=== PATIENT | female | born 1975 | race Caucasian/White ===

== ENCOUNTER → 2023-07-24 11:52 | Outpatient (CLI) | payer MEDICARE, SELFPAY ==
--- NOTE | ~2023-07-24 | XR_ITS ---
Thoracic spine: Clinical Indication: Back pain AP and lateral views were performed. No fracture is seen. There is normal alignment of the vertebrae. The intervertebral disc spaces appe ar normal. Paravertebral soft tissues appear normal. Impression: No significant abnormalities noted. Reviewed, dictated and finalized at [facility]. O AND SOUND RECORDER Impression: No significant abnormalities noted.
--- NOTE | ~2023-07-24 | XR_ITS ---
Lumbosacral Spine: AP and lateral views Clinical History: Pain Findings: The normal lordotic curve is maintained. The vertebral bodies and posterior elements are i ntact. The intervertebral disc spaces are preserved. The sacroiliac joints are normally outlined. Impression: No significant abnormality. Reviewed, dictated and finalized at [facility]. 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
== END ==
PROVIDERS: PCP Emergency Medicine; Visit Provider Emergency Medicine
DX: M54.89 Other dorsalgia (principal); W19.XXXA Unspecified fall, initial encounter
CPT/HCPCS: 72072; 72100

== ENCOUNTER → 2024-05-12 13:16 | Outpatient (REF) | payer MEDICARE, MEDICAID, SELFPAY | LOC: ANHLAB 13:16 | PROVIDERS: PCP Emergency Medicine; Visit Provider Physician Assistant Surgical | DX: L82.1 Other seborrheic keratosis (principal) | CPT/HCPCS: 88305 ==

== ENCOUNTER 2024-07-09 09:54 | Outpatient (CLI) | payer MEDICARE, MEDICAID, SELFPAY ==
--- NOTE | ~2024-07-09 | MR_ITS ---
EXAMINATION: MR lumbar spine wo con DATE: 07/09/2024 10:29 INDICATION: Lumbago with sciatica, left side. TECHNIQUE: Magnetic resonance imaging (MRI) of the lumbar spine was performed without intravenous con trast. Sequences included sagittal T2-weighted FSE, sagittal T2-weighted FS FSE, sagittal T1-weighted FSE, and axial T2-weighted FSE. COMPARISON: Lumbar spine radiographs 07/24/2023 FINDINGS: There is 3 degrees dextrocurvature of lumbar spine. Vertebral body heights are normal. Ther e is mildly decreased disc height at L2-L3. The distal spinal cord signal intensity is normal. The co nus medullaris is at L1. The following disc levels are specifically discussed: L1-L2: There is a central protrusion. There is severe right and mild left facet joint osteoarthritis. There is no neural foraminal stenosis. There is mild central canal stenosis. L2-L3: The disc is bulging and has an annular fissure. There is moderate bilateral facet joint osteoa rthritis. There is mild bilateral neural foraminal stenosis. There is mild central canal stenosis. L3-L4: The disc is bulging and has an annular fissure. There is moderate bilateral facet joint osteoa rthritis. There is mild bilateral neural foraminal stenosis. There is mild central canal stenosis. L4-L5: The disc is bulging. There is moderate right and mild left facet joint osteoarthritis. There i s mild bilateral neural foraminal stenosis. There is mild central canal stenosis. L5-S1: The disc is bulging and has an annular fissure. There is severe bilateral facet joint osteoart hritis. There is mild bilateral neural foraminal stenosis. There is mild central canal stenosis. IMPRESSION: 1. Mild lumbar spondylosis. Reviewed, dictated and finalized at location A. AGENT IMPRESSION: 1. Mild lumbar spondylosis.
--- OUTSIDE RECORDS SUMMARY | 2024-07-16 12:47 | XMS_ITS | Encounter Summary ---
Author Organization [facility] Address [address] [place] [address] Phone Care Team Providers Care Seaman Name Role Phone Va Ferrell MD Unavailable Jacqui Rooney OD Unavailable Soto Vera MD Unavailable Unavailable Reason for Visit * Reason Comments Medication Refill Encounter Details Date Type Department Care Team (Late st Contact Info) Description 08/16/2021 Refill [facility] - Primary Care - [place] [address] [place] [address] Sg Richards MD [address] [place] [address] Medication Refill Social History Tobacco Use Types Packs/Day Years Used Date Smoking Tobacco: Former Cigarettes Q uit: 06/10/2018 Smokeless Tobacco: Never Alcohol Use Standard Drinks/Week Comments No 0 (1 standard drink = 0.6 oz pur e alcohol) Sexually Active Control Partners Comments Yes Male Comments No Sex and Gender Information Value Date Recorded Sex Assigned at Female 03/09/2023 8:39 AM CDT Legal Sex Female 10:23 PM CDT Gender Identity Female 03/09/2023 8:39 AM CDT Sexual Orientation Not on file documented as of this encounter Miscellaneous Notes * Telephone Encounter - Aminah Mondragon RN - 08/16/2021 4:11 PM CST Medication approved and signed per standing order protocol. 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 documented in this encounter Plan of Treatment Not on file documented as of this encounter Visit Diagnoses Not on filedocumented in this encounter Additional Health Concerns Assessment Noted Time PHQ-9 Depression Total Score: 0 12/25/19 17 1:00 PM CDT documented as of this encounter Care Teams Seaman Relationship Specialty Start Date End Date Va Ferrell MD ONE PROFESSIONAL [address] [address] Consulting Physician Obstetrics & Gynecology 06/04/16 Jacqui Rooney OD [address] [place] [address] Consulting Physician Optometry 10/15/16 03/26/23 Soto Vera MD [address] [place] [address] Consulting Physician Neurology 09/28/20 03/25/23 Will Augustine MD Consulting Physician Neurology 04/22/16 documented as of this encounter
--- OUTSIDE RECORDS SUMMARY | 2024-07-16 12:47 | XMS_ITS | Encounter Summary ---
Author Organization [facility] Address [address] [place] [address] Phone Care Team Providers Care Automobile Appraiser Name Role Phone Va Ferrell MD Unavailable Jacqui Rooney OD Unavailable Soto Vera MD Unavailable Unavailable Reason for Visit * Reason Comments Medication Refill Encounter Details Date Type Department Care Team (Late st Contact Info) Description 11/16/2021 Refill [facility] - Primary Care - [place] [address] [place] [address] Sg Richards MD [address] [place] [address] Medication Refill Social History Tobacco [...] encounter Miscellaneous Notes * Telephone Encounter - Sneha Coffey RN - 11/18/2021 8:45 AM CDT Medication approved and signed per standing order protocol. documented in this encounter Plan of Treatment Not on file documented as of this encounter Visit Diagnoses Not on filedocumented in this encounter Additional Health Concerns Assessment Noted Time PHQ-9 Depression Total Score: 0 12/25/19 17 1:00 PM CDT documented as of this encounter Care Teams Automobile Appraiser Relationship Specialty Start Date End Date Va Ferrell MD ONE PROFESSIONAL [address] [address] Consulting Physician Obstetrics & Gynecology 06/04/16 Jacqui Rooney OD [address] [place] [address] Consulting Physician Optometry 10/15/16 03/26/23 Soto Vera MD [address] [place] [address] Consulting Physician Neurology 09/28/20 03/25/23 Will Augustine MD Consulting Physician Neurology 04/22/16 documented as of this encounter
--- OUTSIDE RECORDS SUMMARY | 2024-07-16 12:47 | XMS_ITS | Encounter Summary ---
Author Organization [facility] Care Team Providers Care College Sports Coach Name Role Phone Sg Richards MD Primary Care Provider [phone] Va Ferrell MD Unavailable [phone] Jacqui Rooney OD Unavailable [phone] Soto Vera MD Unavailable Unavailable Encounter Details Date Type Department Care Team (Latest Contact Info) Description 04/25/2021 Travel Social History Tobacco Use Types Packs/Day Years [...] AM CDT Sexual Orientation Not on file COVID-19 Exposure Response Date Recorded In the last month, have you been in contact with someone who was confirmed or suspected to have Coronavirus / COVID-19? No / Unsure 04/25/2021 10:37 AM CDT documented as of this encounter Plan of Treatment Not on file documented as of this encounter Visit Diagnoses Not on filedocumented in this encounter Additional Health Concerns Infection Onset Date Last Indicated Resolved Time COVID - 19 04/25/2021 04/25/2021 05/15/2021 12:1 6 AM CDT Assessment Noted Time PHQ-9 Depression Total Score: 0 12/25/19 17 1:00 PM CDT documented as of this encounter Care Teams College Sports Coach Relationship Specialty Start Date End Date Sg Richards MD [address] [place] [address] PCP - General Internal Medicine 03/28/15 08/12/21 Va Ferrell MD ONE PROFESSIONAL [facility] [place] [address] Consulting Physician Obstetrics & Gynecology 06/04/16 Jacqui Rooney OD [address] [place] [address] Consulting Physician Optometry 10/15/16 03/26/23 Soto Vera MD [address] [place] [address] Consulting Physician Neurology 09/28/20 03/25/23 Will Augustine MD Consulting Physician Neurology 04/22/16 documented as of this encounter
--- OUTSIDE RECORDS SUMMARY | 2024-07-16 12:47 | XMS_ITS | Encounter Summary ---
Author Organization [facility] Address [address] [place] [address] Phone Care Team Providers Care Gluer Machine Operator Name Role Phone Sg Richards MD Primary Care Provider [phone] Va Ferrell MD Unavailable Jacqui Rooney OD Unavailable Soto Vera MD Unavailable Unavailable Reason for Visit * Reason Comments Cough x's 1 week Sore Throat been trying honey an d hot tea and salt water gargles, doesn't work. x's 1 week Encounter Details Date Type Department Care Team ([facility] Contact Info) Description 04/25/2021 4:20 PM CDT Office Visit [facility] - Primary Care [id number] [place] [address] Nav Bello PAC Pharyngitis, unspecified etiology (Primary Dx); Cough Discharge Disposition: Discharged to home or Selfcare Social History Tobacco Use Types Packs/Day Years [...] AM CDT documented as of this encounter Last Filed Vital Signs Vital Sign Reading Time Taken Comments Blood Pressure 114/68 04/25/2021 4:01 PM CDT Pulse 88 04/25/2021 4:01 PM CDT Temperature 36.7 ??C (98 ??F) 04/25/2021 4:01 PM CDT Respiratory Rate 16 04/25/2021 4:01 PM CDT Oxygen Saturation 98% 04/25/2021 4:01 PM CDT Inhaled Oxygen Concentration - - Weight - - Height 165.1 cm (5' 5 ) 04/25/2021 4:01 PM CDT Body Mass Index - - documented in this encounter Patient Instructions * Patient Instructions* Nav Bello, DG - 04/25/2021 4:20 PM CDT Diagnoses and all orders for this visit: Pharyngitis, unspecified etiology - POCT GROUP A STREP SCREEN RAPID - SARS-COV-2 BY MOLECULAR; Future - CULTURE, GRP A STREPTOCOCCUS, CULT ONLY; Future Cough - SARS-COV-2 BY MOLECULAR; Future Caring for a Viral Upper Respiratory Infection -- Drink plenty of Fluids --Get plenty of rest --A humidifier of vaporizer may help --Use Tylenol (acetaminophen) or Motrin (ibuprofen) as directed for fever or discomfort --Use nasal saline spray as needed for runny nose or congestion --Use salt water gargles and/or warm liquids as needed for sore throat --Warm liquids with honey often help with coughing --May use mgfv-uup-zhgkgac cough suppressant such as Delsym (dextromethorophan) as needed at bedtime --May use wbvd-ane-oikpqdp expectorant such as Mucinex (guafenisen) as needed during the day to thin secretions --May use vgvp-upi-dbglbbb decongestant such as Sudafed (pseudoephedrine) as needed --If you use a multi-symptom epfk-jfs-gfafsdy cold medicine (Tylenol Cold, NyQuil, etc.), do not take additional Tylenol (or other medincines containing acetaminophen), decongestants, etc as the multi-symptom cold medicines typically contain Tylenol and several other ingredients. --Remember to cover your cough, wash your hands freqeuntly, and avoid sharing drinks, towels, etc while you are sick to avoid spreading the illness to others. - Conservative management was discussed, see AVS Take all medications as prescribed. Please continue with a balanced lifestyle of exercise and healthy eating. If you have questions about scheduling please contact [phone]. If you have questions about a referral that was placed please call [phone]. If symptoms worsen or fail to improve please present to ED or [facility]. If any question, please call. As part of our continued efforts to provide you with excellent healthcare I would ask you to respond to survey you will receive in regards to your experience. Your input and efforts will contribute to improving our patient care experience. Thank you in advance for your participation in this important effort. Thanks for coming in today! documented in this encounter Progress Notes * Tiffanie Sharif [facility] - 04/25/2021 4:20 PM CDT Kayla Avila, 46 y.o., female is here for Cough (x's 1 week ) and Sore Throat (been trying honey and hot tea and salt water gargles, doesn't work. x's 1 week ) Medication Refills: Patient reports/denies need for medication refills. Orders Pended: no Requested Prescriptions No prescriptions requested or ordered in this encounter Home Medications Medication Sig Start Date End Date Taking? Authorizing Provider diclofenac (VOLTAREN) 75 MG Tablet Delayed Response take 1 tablet by oral route 2 times every day Patient not taking: Reported on 04/25/2021 02/14/15 Provider, MD Dany Erenumab-aooe 70 MG/ML Solution Auto-injector 70 mg by Subcutaneous route. 01/03/21 Yes Dany Navarrete MD Eslicarbazepine Acetate 800 MG Tablet Take by mouth. Patient not taking: Reported on 04/25/2021 Dany Navarrete MD gabapentin (NEURONTIN) 600 MG Tablet 4 times daily. Yes Dany Navarrete MD HYDROcodone-acetaminophen (NORCO) 5-325 MG Tablet TK 1 T PO Q 6 H PRN 08/03/19 Yes Dany Navarrete MD lamoTRIgine (LAMICTAL) 100 MG Tablet Take 350 mg by mouth 2 times daily. 06/23/16 Yes Sg Richards MD Levetiracetam 1000 MG Tablet take 2 tablet by oral route every 12 hours 06/04/16 Yes Dany Navarrete MD pantoprazole (PROTONIX) 40 MG Tablet Delayed Response TAKE 1 TABLET BY MOUTH DAILY Patient not taking: Reported on 04/25/2021 02/19/21 Sg Richards MD primidone (MYSOLINE) 50 MG Tablet Take 2 Tablets by mouth nightly. Indications: take two tablets atbedtime 09/28/20 Yes Sg Richards MD traZODone (DESYREL) 100 MG Tablet 05/26/16 Yes Dany Navarrete MD There are no discontinued medications. I have reviewed the home medication list with the patient and have reconciled discrepancies. The list is accurate to the best of my knowledge. Smoking Status: Social History Tobacco Use ??? Smoking status: Former Smoker Packs/day: 0.25 Types: Cigarettes Quit date: 06/10/2018 Years since quittin.8 ??? Smokeless tobacco: Never Used Substance Use Topics ??? Alcohol use: No Alcohol/week: 0.0 oz ??? Drug use: No Smoking Cessation Counseling Given: no Health Care Maintenance: Health Maintenance Due Topic Date Due ??? SARS-COV-2 Immunization (1) Never done ??? Pap Smear Never done ??? Discussion re Starting/Frequency of Mammograms Never done ??? Influenza Immunization (1) Never done Orders Pended: no The following BPA's have been addressed with the patient today: N/A * Nav Bello PAC - 04/25/2021 4:20 PM CDT HPI: Kayla Avila is a 46 y.o. female presents with 1 week of sore throat, cough. Pt denies fevers, chills, body aches, loss of taste or smell, SOB, CP, N/V/D. Pt reports has been using honey w/ tea, salt water gargles, hydrocodone for the pain. Pt denies known sick contacts. Pt has not gotten COVID vaccine or influenza vaccine. ROS: Review of Systems Constitutional: Negative for chills and fever. HENT: Positive for congestion and sore throat (pain rates 10/10). Negative for ear pain. Respiratory: Positive for cough. Negative for shortness of breath and wheezing. Cardiovascular: Negative for chest pain, palpitations and leg swelling. Gastrointestinal: Negative for diarrhea, nausea and vomiting. Skin: Negative for itching and rash. Neurological: Pt denies any changes in dizziness and ODEN. PE: BP 114/68 Pulse 88 Temp 98 ??F (36.7 ??C) (Temporal) Resp 16 Ht 5' 5 (1.651 m) LMP 12/07/2019 (Approximate) SpO2 98% BMI 40.60 kg/m?? Physical Exam Vitals and nursing note reviewed. Constitutional: General: She is not in acute distress. Appearance: She is well-developed. She is not diaphoretic. HENT: Head: Normocephalic and atraumatic. Right Ear: Tympanic membrane and ear canal normal. Left Ear: Tympanic membrane and ear canal normal. Nose: No rhinorrhea. Mouth/Throat: Pharynx: Posterior oropharyngeal erythema (Erythematous posterior pharynx) present. No oropharyngeal exudate. Neck: Thyroid: No thyromegaly. Cardiovascular: Rate and Rhythm: Normal rate and regular rhythm. Heart sounds: Normal heart sounds. No murmur heard. Pulmonary: Effort: Pulmonary effort is normal. No respiratory distress. Breath sounds: Normal breath sounds. No wheezing or rales. Musculoskeletal: General: Normal range of motion. Cervical back: Normal range of motion and neck supple. Right lower leg: No edema. Left lower leg: No edema. Lymphadenopathy: Cervical: No cervical adenopathy. Skin: General: Skin is warm and dry. Findings: No rash. Neurological: Mental Status: She is alert and oriented to person, place, and time. Psychiatric: Behavior: Behavior normal. Thought Content: Thought content normal. Judgment: Judgment normal. ASSESSMENT/PLAN: Patient Instructions Diagnoses and all orders for this visit: Pharyngitis, unspecified etiology - POCT GROUP A STREP SCREEN RAPID - SARS-COV-2 BY MOLECULAR; Future - CULTURE, GRP A STREPTOCOCCUS, CULT ONLY; Future Cough - SARS-COV-2 BY MOLECULAR; Future - Pt needs to quarantine until getting results back Caring for a Viral Upper Respiratory Infection -- Drink plenty of Fluids --Get plenty of rest --A humidifier of vaporizer may help --Use Tylenol (acetaminophen) or Motrin (ibuprofen) as directed for fever or discomfort --Use nasal saline spray as needed for runny nose or congestion --Use salt water gargles and/or warm liquids as needed for sore throat --Warm liquids with honey often help with coughing --May use uemq-ooa-xycywlk cough suppressant such as Delsym (dextromethorophan) as needed at bedtime --May use vsed-iuv-ogkvphp expectorant such as Mucinex (guafenisen) as needed during the day to thin secretions --May use fqgb-phg-fokdatp decongestant such as Sudafed (pseudoephedrine) as needed --If you use a multi-symptom ogke-izm-siulndx cold medicine (Tylenol Cold, NyQuil, etc.), do not take additional Tylenol (or other medincines containing acetaminophen), decongestants, etc as the multi-symptom cold medicines typically contain Tylenol and several other ingredients. --Remember to cover your cough, wash your hands freqeuntly, and avoid sharing drinks, towels, etc while you are sick to avoid spreading the illness to others. - Conservative management was discussed, see AVS Take all medications as prescribed. Please continue with a balanced lifestyle of exercise and healthy eating. If you have questions about scheduling please contact [phone]. If you have questions about a referral that was placed please call [phone]. If symptoms worsen or fail to improve please present to ED or [facility]. If any question, please call. As part of our continued efforts to provide you with excellent healthcare I would ask you to respond to survey you will receive in regards to your experience. Your input and efforts will contribute to improving our patient care experience. Thank you in advance for your participation in this important effort. Thanks for coming in today! This note was dictated using M*Modal fluency dictation system and there may be errors in electrophysiology technician. Despite proof reading the note, there may be mistakes and I apologize for those. Chief complaint and all history documented by ancillary staff were reviewed and verified, with additions or corrections, as appropriate. Nav Bello PA-C * Tiffanie Shairf CMA - 04/25/2021 4:20 PM CDT Strep culture and covid PCR swabs sent to [facility] lab * Nav Bello PAC - 04/25/2021 4:20 PM CDT Please let patient to let them know that results of strep and COVID testing are negative. documented in this encounter Plan of Treatment Not on file documented as of this encounter Procedures Procedure Name Priority Date/Time Associated Diagnosis Comments SARS-COV-2 BY MOLECULAR Routine 04/25/2021 4:41 PM CDT Pharyngitis, unspecified etiology Cough CULTURE, GRP A STREPTOCOCCUS, CULT ONLY Routine 04/25/2021 4:41 PM CDT Pharyngitis, unspecified etiology POCT GROUP A STREP SCREEN RAPID Routine 04/25/2021 4:15 PM CDT Pharyngitis, unspecified etiology documented in this encounter Results * CULTURE, GRP A STREPTOCOCCUS, CULT ONLY (04/25/2021 4:41 PM CDT) CULTURE RESULTS NO STREP PYOGENES (GROUP A BETA HEMOLYTIC STREP) ISOLATED AFTER 2 DAYS 04/28/2021 10:22 AM CDT F [facility] Culture SPECIMEN FROM THROAT / Unknown Non-Phlebotomy Collection / Unknown 04/25/2021 4:41 PM CDT 04/25/2021 4:41 PM CDT Nav Bello [facility] MICROBIOLOGY - GENERAL O RDERABLES Final Result Performing Organization Address City/[facility]/ZIP Co de Phone Number [facility] [address] [place] [address], [place] * SARS-COV-2 BY MOLECULAR (04/25/2021 4:41 PM CDT) SARSCOV2 NOT DETECTED (Referen ce Range for this test is Not Detected ) [facility] THERMOFISHER FAST DX 04/26/2021 10:32 PM CDT [facility] Comment:This test was perfor med by a RT-PCR method. Other NASAL STRUCTURE / Unknown Non-Phlebotomy Collection / Unknown 04/25/2021 4:41 PM CDT 04/25/2021 4:41 PM CDT Narrative [facility] - 04/26/2021 10:32 PM CDT Authorized Fact Sheets about this test for providers and patients are available at: https://www.fda.gov/medical-devices/gbbrjnrox-lhsmfekqxp-fjxqmpw-devices/emergen cy-us e-authorizations Nav [facility] MICROBIOLOGY - GENERAL O RDERABLES Final Result Performing Organization Address City/[facility]/ZIP Co de Phone Number [facility] [address] [place] [address], [place] * POCT GROUP A STREP SCREEN RAPID (04/25/2021 4:15 PM CDT) POC STREP SCRN Presumptive negative POC STREP SCREEN CONTROL Program/Music Director Pass 04/25/2021 4:15 PM CDT Nav Bello [facility] POINT OF CARE TESTING (M ANUAL) Final Result documented in this encounter Visit Diagnoses Diagnosis Pharyngitis, unspecified etiology- Primary Cough documented in this encounter Additional Health Concerns Infection Onset Date Last Indicated Resolved Time COVID - 19 04/25/2021 04/25/2021 05/15/2021 12:1 6 AM CDT Assessment Noted Time PHQ-9 Depression Total Score: 0 12/25/19 17 1:00 PM CDT documented as of this encounter Care Teams Gluer Machine Operator Relationship Specialty Start Date End Date Sg Richards MD [address] [place] [address] PCP - General Internal Medicine 03/28/15 08/12/21 Va Ferrell MD [place] [address] Consulting Physician Obstetrics & Gynecology 06/04/16 Jacqui Rooney OD [address] [place] [address] Consulting Physician Optometry 10/15/16 03/26/23 Soto Vera MD [address] [place] [address] Consulting Physician Neurology 09/28/20 03/25/23 Will Augustine MD Consulting Physician Neurology 04/22/16 documented as of this encounter
--- OUTSIDE RECORDS SUMMARY | 2024-07-16 12:47 | XMS_ITS | Clinical Summary ---
Author Organization [facility] Address [address] [place] [address] Phone Care Team Providers Care Transfer Iron Operator Name Role Phone Va Ferrell MD Unavailable Davi Georges Primary Care Provider [phone] Inna Fair MD Unavailable Allergies Active Allergy Reactions Criticality Noted Date Comments Erythromycin Hallucinations,Other (see Comments) Medium 01/03/2016 Neuro problems Seizure as a baby Silicone Hives Medium 07/25/2014 Adhesive Tape Hives 07/09/2015 Medications gabapentin (NEURONTIN) 600 MG Tablet Take 1,200 mg by mouth 2 times daily. Active lamoTRIgine (LAMICTAL) 100 MG Tablet Take 350 mg by mouth 2 times daily. 30 Tab 6 Active primidone (MYSOLINE) 50 MG TabletIndicatio ns:take two tablets at bedtime Take 250 mg by mouth in the morning and at bedtime. Indications: take two tablets at bedtime 120 Tablet 1 Active Rizatriptan Benzoate 5 MG Tablet Take 5 mg by mouth. Active Aimovig 140 MG/ML Solution Auto-injector 3 Active albuterol 108 (90 Base) MCG/ACT Aerosol Solution INHALE 1 PUFF BY MOUTH EVERY 4 TO 6 HOURS NEEDED FOR SHORTNESS OF BREATH 3 Active Active Problems Problem Noted Date Diagnosed Date Intractable chronic migraine without aura and without status migrainosus 03/09/2020 Arthritis 09/07/2017 DENN[place] (obstructive sleep apnea) 09/07/2017 Obesity with body mass index 30 or greater 06/04 Overview (09/28/2020): BMI 30+ - obesity Gastroesophageal reflux disease 01/09/2016 Anxiety and depression 09/24/2015 Seizure disorder Resolved Problems Problem Noted Date Diagnosed Date Resolved Date Facet arthritis of lumbosacral region L5-S1 08/22/2015 09/07/2017 Injury of jaw 07/20/2002 09/07/2017 Immunizations Immunization Administration Dates Next Due PUR TDAP 7+ YRS IM 07/09/2015 Pneumococcal Vaccine Adult - 23 Valent 8 Family History Medical History Relation Name Comments Cancer Father lung Diabetes Father Heart Attack Father High Cholesterol Father Hypertension Father Liver Disease Father Heart Attack Maternal Grandfather Seizures Maternal Grandmother Congestive Heart Failure Mother Diabetes Mother Cancer Paternal Grandfather Cancer Paternal Grandmother Arrhythmia Sister Relation Name Status Comments Father Maternal Grandfather Maternal Grandmother Mother Paternal Grandfather Paternal Grandmother Sister Social History Tobacco Use Types Packs/Day Years Used Date Smoking Tobacco: Former Cigarettes Q uit: 06/10/2018 Smokeless Tobacco: Never Tobacco Cessation:Counseling Given: Not Answered Alcohol Use Standard Drinks/Week Comments Never 0 (1 standard drink = 0.6 oz pur e alcohol) Sexually Active Control Partners Comments Yes Male Comments No Sex and Gender Information Value Date Recorded Sex Assigned at Female 03/09/2023 8:39 AM CDT Legal Sex Female 10:23 PM CDT Gender Identity Female 03/09/2023 8:39 AM CDT Sexual Orientation Not on file Last Filed Vital Signs Vital Sign Reading Time Taken Comments Blood Pressure 126/74 03/18/2023 8:56 AM CDT Pulse 75 03/18/2023 8:56 AM CDT Temperature 36.3 ??C (97.3 ??F) 03/18/2023 8:56 AM CD T Respiratory Rate 18 03/18/2023 8:56 AM CDT Oxygen Saturation 95% 03/18/2023 8:56 AM CDT Inhaled Oxygen Concentration - - Weight 94.1 kg (207 lb 8 oz) 03/18/2023 8:56 AM CDT Height 163.2 cm (5' 4.25 ) 03/18/2023 8:56 AM CD T Body Mass Index 35.34 03/18/2023 8:56 AM CDT Plan of Treatment Health Maintenance Due Date Last Done Comments Hepatitis C Virus (HCV) Screening 1975 Hepatitis B Immunization (1 of 3 - 19+ 3-dose series) 1994 Pap Smear 1996 Cervical Cancer Screening (CCS) 2005 HPV/Cotest 2005 Discussion re Starting/Frequ ency of Mammograms 2015 Colonoscopy 2020 Colorectal Cancer Screening 2020 Influenza Immunization (#1) 2024 SARS-COV-2 Immunization ( season) 2024 Td Immunization Every 10 Yea rs (Adults With 1 Tdap) 07/09/2025 07/09/2015 Respiratory Syncytial Virus (RSV) Immunization (Adult) (1 - 1-dose 75+ series) 2050 Pneumococcal Immunization Combined Aged Out 2017 No longer eligible based on patient's age to complete this topic Meningococcal Immunization (ACWY) Aged Out No longer eligible based on patient's age to complete this topic Rotavirus Immunization Aged Out No lo nger eligible based on patient's age to complete this topic Insurance MEDICARE C [employer] on file MEDICARE C [employer] Care Teams Transfer Iron Operator Relationship Specialty Start Date End Date Davi Georges [address] [place] [address] PCP - General Family Medicine 02/05/23 Va Ferrell MD [address] [place] [address] Consulting Physician Obstetrics & Gynecology 06/04/16 Inna Fair MD [address] [place] [address] Consulting Physician Oncology 02/05/23 Will Augustine MD Consulting Physician Neurology 04/22/16
--- OUTSIDE RECORDS SUMMARY | 2024-07-16 12:47 | XMS_ITS | Encounter Summary ---
Author Organization [facility] Address [address] [place] [address] Care Team Providers Care Matcher Leather Parts Name Role Phone Unavailable Primary Care Provider Unavailabl e Encounter Details Date Type Department Care Team (Latest Contact Info) Description 07/05/2015 9:27 AM TALCER - 07/05/2015 11:59 PM TALCER Hospital Encounter [facility] - Laboratory [address] [place] [address] [place] [address] [facility] [address] [place] [address] Discharge Disposition: Home or Self Care Social History Tobacco Use Types Packs/Day Years Used Date Smoking Tobacco: Never Assessed Sex and Gender Information Value Date Recorded Sex Assigned at Not on file Gender Identity Not on file Sexual Orientation Not on file documented as of this encounter Plan of Treatment Not on file documented as of this encounter Procedures Procedure Name Priority Date/Time Associated Diagnosis Comments LACOSAMIDE Routine 07/05/2015 9:43 AM TALCER Convulsions, unspecified convulsion type (HCC) LEVETIRACETAM LEVEL Routine 07/05/2015 9 :43 AM TALCER Convulsions, unspecified convulsion type (HCC) LAMOTRIGINE LEVEL Routine 07/05/2015 9:4 3 AM TALCER Convulsions, unspecified convulsion type (HCC) GABAPENTIN LEVEL Routine 07/05/2015 9:43 AM TALCER Convulsions, unspecified convulsion type (HCC) PHENOBARBITAL LEVEL Routine 07/05/2015 9 :43 AM TALCER Convulsions, unspecified convulsion type (HCC) PRIMIDONE+PHENOBARBITA L LEVEL Routine 07/05/2015 9:43 AM TALCER Convulsions, unspecified convulsion type (HCC) documented in this encounter Results * (ABNORMAL) PHENOBARBITAL LEVEL (07/05/2015 9:43 AM TALCER) Phenobarbital <2.1(L) 15.0 - 40.0 ug/mL 07/05/2015 10:25 AM TALCER [facility] Blood BLOOD SPECIMEN / Unknown Lab Venipuncture / Unknown 07/05/2015 9:43 AM TALCER 07/05/2015 9:55 AM TALCER Ezequiel Ray MD LAB - CHEMISTRY CALEB RODRIGES [facility] Organization Address City/State/[facility] Co de Phone Number [facility] [address] [phone] * (ABNORMAL) PRIMIDONE+METABOLITE (07/05/2015 9:43 AM TALCER) Primidone 1.0(L) 5.0 - 12.0 ug/mL 07/06/2015 6:17 AM TALCER [facility] ([facility]) Comment: ?Detection Limit = 0.3 ? <0.3 indicates None Detected Phenobarbital <2(L) 15 - 40 ug/mL 07/06/2015 6:17 AM TALCER [facility] ([facility]) Comment: Verified by repeat analysis ?Detection Limit = 2 ? <2 indicates None Detected Blood specimen (specimen) BLOOD SPECIMEN / Unknown Lab Venipuncture / Unknown 07/05/2015 9:43 AM TALCER 07/05/2015 9:55 AM TALCER Narrative [facility] ([facility]) - 07/06/2015 6:17 AM TALCER Performed at: ??01 - [facility] [address], [place], [place] ??[id number] Brassiere Cup Mold Cutter: Wood Sun PhD, Phone: ??[phone] Ezequiel Ray MD LAB - CHEMISTRY CALEB RODRIGES [facility] ([facility]) * (ABNORMAL) LACOSAMIDE (07/05/2015 9:43 AM TALCER) Lacosamide 12.9(H) 5.0 - 10.0 ug/mL 07/06/2015 7:11 PM TALCER [facility] ([facility]) Comment: ? Limit of Detection 0.5 ??Mean plasma concentrations following maintenance dose ?200 mg/day ??4.99 +/- 2.51 ug/mL ?400 mg/day ??9.35 +/- 4.22 ug/mL ?600 mg/day 12.46 +/- 5.60 ug/mL Results of this test are for Investigational Purposes Only. ??The performance characteristics of this assay have been determined by [facility]. ??The result should not be used as a diagnostic procedure without confirmation of the diagnosis by another medically established diagnostic product or procedure. Blood specimen (specimen) BLOOD SPECIMEN / Unknown Lab Venipuncture / Unknown 07/05/2015 9:43 AM TALCER 07/05/2015 9:55 AM TALCER Narrative [facility] ([facility]) - 07/06/2015 7:11 PM TALCER Performed at: ??01 - [facility] [address] ??[id number] Brassiere Cup Mold Cutter: Raman Jeffries MD, Phone: ??[phone] Ezequiel Ray MD LAB - CHEMISTRY ORDE RABLES Performing Organization Address [facility] de Phone Number [facility] ([facility]) * LAMOTRIGINE LEVEL (07/05/2015 9:43 AM TALCER) Pathologist [facility] Lamotrigine None Detected 2.0 - 20.0 ug/mL 07/07/2015 5:08 PM TALCER [facility] ([facility]) Comment:Detection Limit = 1. 0 Blood specimen (specimen) BLOOD SPECIMEN / Unknown Lab Venipuncture / Unknown 07/05/2015 9:43 AM TALCER 07/05/2015 9:55 AM TALCER Narrative [facility] ([facility]) - 07/07/2015 5:08 PM TALCER Performed at: ??01 - [address] ??[id number] Brassiere Cup Mold Cutter: Raman Jeffries MD, Phone: ??[phone] Ezequiel Ray MD LAB - THERAPEUTIC DR UG MONITORING ORDERABLES Performing Organization Address [facility] de Phone Number [facility] ([facility]) * LEVETIRACETAM LEVEL (07/05/2015 9:43 AM TALCER) Pathologist [facility] Levetiracetam 32.1 10.0 - 40.0 ug/mL 07/08/2015 2:35 AM TALCER [facility] ([facility]) Blood specimen (specimen) BLOOD SPECIMEN / Unknown Lab Venipuncture / Unknown 07/05/2015 9:43 AM TALCER 07/05/2015 9:55 AM TALCER Narrative [facility] ([facility]) - 07/08/2015 2:35 AM TALCER Performed at: ??01 - [facility] ??[id number] Brassiere Cup Mold Cutter: Raman Jeffries MD, Phone: ??[phone] Ezequiel Ray MD LAB - THERAPEUTIC DR OSUNA MONITORING ORDERABLES [facility] ([facility]) * GABAPENTIN LEVEL (07/05/2015 9:43 AM TALCER) Gabapentin 15.7 4.0 - 16.0 ug/mL 07/07/2015 5:08 PM TALCER [facility] ([facility]) Comment:Detection Limit = 1. 0 Blood specimen (specimen) BLOOD SPECIMEN / Unknown Lab Venipuncture / Unknown 07/05/2015 9:43 AM TALCER 07/05/2015 9:55 AM TALCER Narrative [facility] ([facility]) - 07/07/2015 5:08 PM TALCER Performed at: ??01 - [facility] [address] ??[id number] Brassiere Cup Mold Cutter: Raman Jeffries MD, Phone: ??[phone] Ezequiel Ray MD LAB - CHEMISTRY ORDCindy RODRIGES [facility] ([facility]) documented in this encounter Visit Diagnoses Diagnosis Convulsions, unspecified convulsion type (HCC)- Primary documented in this encounter
--- OUTSIDE RECORDS SUMMARY | 2024-07-16 12:47 | XMS_ITS | Encounter Summary ---
Author Organization [facility] Address [address] [facility] [place] [address] Care Team Providers Care Masonry Inspector Name Role Phone Unavailable Primary Care Provider Unavailabl e Encounter Details Date Type Department Care Team (Latest Contact Info) Description 09/25/2014 12:20 PM CDT - 09/25/2014 11:59 PM CDT Hospital Encounter [facility] - Laboratory [address] [place] [address] [place] [address] [facility] [address] [place] [address] Discharge Disposition: Home or Self [...] Priority Date/Time Associated Diagnosis Comments LACOSAMIDE Routine 09/25/2014 12:41 PM CDT Localization-related (focal) (partial) epilepsy and epileptic syndromes with complex partial seizures, with intractable epilepsy (HCC) LEVETIRACETAM LEVEL Routine 09/25/2014 1 2:41 PM CDT Localization-related (focal) (partial) epilepsy and epileptic syndromes with complex partial seizures, with intractable epilepsy (HCC) LAMOTRIGINE LEVEL Routine 09/25/2014 12: 41 PM CDT Localization-related (focal) (partial) epilepsy and epileptic syndromes with complex partial seizures, with intractable epilepsy (HCC) GABAPENTIN LEVEL Routine 09/25/2014 12:4 1 PM CDT Localization-related (focal) (partial) epilepsy and epileptic syndromes with complex partial seizures, with intractable epilepsy (HCC) documented in this encounter Results * (ABNORMAL) LACOSAMIDE (09/25/2014 12:41 PM CDT) Lacosamide 13.6(H) 5.0 - 10.0 ug/mL 09/27/2014 3:14 AM CDT [employer] ([facility]) Comment: INTERPRETIVE INFORMATION: Lacosamide, Serum or Plasma Therapeutic Range: Not well established. Suggested range 5.0 - 10.0 ug/mL Dose-related range (values at doses of 200-600 mg/day): 2.5 - 18.0 ug/mL Toxic: Not well established. Adverse effects may include dizziness, fatigue, nausea, vomiting, blurred vision and tremor. Test developed and characteristics determined by [email or web address]. See Compliance Statement B: [email or web address] Blood specimen (specimen) BLOOD SPECIMEN / Unknown Lab Venipuncture / Unknown 09/25/2014 12:41 PM CDT 09/25/2014 12:57 PM CDT Ezequiel Ray MD LAB - CHEMISTRY ALICIAE ANTELMO [facility] Organization Address City/State/ZIP Co de Phone Number [employer] ([facility]) [address] * (ABNORMAL) LAMOTRIGINE LEVEL (09/25/2014 12:41 PM CDT) Lamotrigine <0.9(L) 2.5 - 15.0 ug/mL 09/26/2014 7:00 AM CDT [employer] ([facility]) Comment: INTERPRETIVE INFORMATION: ??Lamotrigine Therapeutic Range: ??2.5-15.0 ug/mL ?Toxic: ??Not well established Pharmacokinetics varies widely, particularly with co-medications and/or compromised renal function. ??Adverse effects may include dizziness, somnolence, nausea and vomiting. Blood specimen (specimen) BLOOD SPECIMEN / Unknown Lab Venipuncture / Unknown 09/25/2014 12:41 PM CDT 09/25/2014 12:57 PM CDT Ezequiel Ray MD LAB - THERAPEUTIC DR OSUNA MONITORING ORDERABLES Performing Organization Address [facility] Phone Number [facility] [employer] ([facility]) [address] * LEVETIRACETAM LEVEL (09/25/2014 12:41 PM CDT) Levetiracetam 27 12 - 46 ug/mL 09/26/2014 7:00 AM CDT [facility] [employer] ([facility]) Comment: INTERPRETIVE INFORMATION: Keppra (Levetiracetam) Therapeutic Range: ??12-46 ug/mL ?Toxic: ??Not well Established Pharmacokinetics of levetiracetam are affected by renal function. Adverse effects may include somnolence, weakness, headache and vomiting. Blood specimen (specimen) BLOOD SPECIMEN / Unknown Lab Venipuncture / Unknown 09/25/2014 12:41 PM CDT 09/25/2014 12:57 PM CDT Ezequiel Ray MD LAB - THERAPEUTIC DR OSUNA MONITORING ORDERABLES Performing Organization Address [facility] de Phone Number [facility] ([facility]) [address] [place] [address] * GABAPENTIN LEVEL (09/25/2014 12:41 PM CDT) Gabapentin 14.4 2.0 - 20.0 ug/mL 09/28/2014 5:08 AM CDT [facility] [employer] ([facility]) Comment: INTERPRETIVE INFORMATION: ??Gabapentin Therapeutic Range: 2 - 20 ug/mL Toxic: Not well established Pharmacokinetics of gabapentin vary widely among patients, particularly those with compromised renal function. Adverse effects may include somnolence, dizziness, ataxia, and fatigue. Blood specimen (specimen) BLOOD SPECIMEN / Unknown Lab Venipuncture / Unknown 09/25/2014 12:41 PM CDT 09/25/2014 12:57 PM CDT Ezequiel U [facility] - CHEMISTRY CALEB Shah Organization Address City/State/ZIP Co de Phone Number [facility] ([facility]) [address] [place], [place] [address] documented in this encounter Visit Diagnoses Diagnosis Localization-related (focal) (partial) epilepsy and epileptic syndromes with complex partial seizures, with intractable epilepsy (HCC)- Primary Localization-related (focal) (partial) epilepsy and epileptic syndromes with complex partial seizures, with intractable epilepsy documented in this encounter
--- OUTSIDE RECORDS SUMMARY | 2024-07-16 12:47 | XMS_ITS | Encounter Summary ---
Author Organization [facility] Address [address] [facility] [place] [address] Care Team Providers Care Smelting Engineer Name Role Phone Kyle Rodríguez MD Primary Care Provider Encounter Details Date Type Department Care Team (Latest Contact Info) Description 12/16/2013 11:55 AM CDT - 12/16/2013 11:59 PM CDT Hospital Encounter [facility] - Laboratory [address] [place] [address] [place] [address] [id number] Discharge Disposition: Home or Self Care Social History Tobacco Use Types Packs/Day Years Used Date Smoking Tobacco: Never Assessed Sex and Gender Information Value Date Recorded Sex Assigned at Not on file Gender Identity Not on file Sexual Orientation Not on file documented as of this encounter Miscellaneous Notes * Miscellaneous Scans - Document, Scanned - 12/19/2013 9:27 PM CDT documented in this encounter Plan of Treatment Not on file documented as of this encounter Procedures Procedure Name Priority Date/Time Associated Diagnosis Comments ZONISAMIDE LEVEL Routine 12/16/2013 12:0 9 PM CDT 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 ??Adverse effects may include dizziness, somnolence, nausea and vomiting. Blood specimen (specimen) BLOOD SPECIMEN / Unknown Lab Venipuncture / Unknown 12/16/2013 12:09 PM CDT 12/16/2013 12:23 PM CDT Ezequiel Ray MD LAB - THERAPEUTIC DR OSUNA MONITORING ORDERABLES Performing Organization Address [facility] Co de Phone Number [employer] [address] [place] [address] * ZONISAMIDE LEVEL (12/16/2013 12:09 PM CDT) Zonisamide < 2 ug/mL 12/19/2013 2:25 PM CDT [employer] Comment: INTERPRETIVE INFORMATION: Zonisamide Therapeutic range: Not well established. Toxic: Greater than 80 ug/mL The proposed therapeutic range for seizure control is 10-40 ug/mL. Toxic concentrations may cause coma, seizures and cardiac abnormalities. Pharmacokinetics varies widely, particularly with co-medications and/or compromised renal function. 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
--- OUTSIDE RECORDS SUMMARY | 2024-07-16 12:47 | XMS_ITS | Encounter Summary ---
Author Organization [facility] Address [address] [place] [address] Phone Care Team Providers Care Protein Chemist Name Role Phone Sg Richards MD Primary Care Provider [phone] Va Ferrell MD Unavailable Jacqui Rooney Unavailable [phone] Soto Vera MD Unavailable Unavailable Reason for Visit * Reason Comments Medication Refill Encounter Details Date Type Department Care Team (Late st Contact Info) Description 05/23/2021 Refill [facility] - Primary Care - [place] [address] [place] [address] Sg Richards MD [address] [place] [address] Medication Refill Social History Tobacco [...] AM CDT documented as of this encounter Miscellaneous Notes * Telephone Encounter - Aminah Mondragon RN - 05/23/2021 2:38 PM CDT Medication approved and signed per standing order protocol. documented in this encounter Plan of Treatment Not on file documented as of this encounter Visit Diagnoses Not on filedocumented in this encounter Additional Health Concerns Assessment Noted Time PHQ-9 Depression Total Score: 0 12/25/19 17 1:00 PM CDT documented as of this encounter Care Teams Protein Chemist Relationship Specialty Start Date End Date Sg Richards MD [address] [place] [address] PCP - General Internal Medicine 03/28/15 08/12/21 Va Ferrell MD [address] [place] [address] Consulting Physician Obstetrics & Gynecology 06/04/16 Jacqui Rooney OD [address] [place] [address] Consulting Physician Optometry 10/15/16 03/26/23 Soto Vera MD [address] [place] [address] Consulting Physician Neurology 09/28/20 03/25/23 Will Augustine MD Consulting Physician Neurology 04/22/16 documented as of this encounter
--- OUTSIDE RECORDS SUMMARY | 2024-07-16 12:47 | XMS_ITS | Patient Health Summary ---
Author Organization [facility] Address [address] [place] [address] Care Team Providers Care Director Of Communications Name Role Phone Unavailable Primary Care Provider Unavailabl e Note from [facility],non-owned Affiliates and Associated Physician Practices is amultiple site organization consisting of ambulatory clinics and hospital sitesin [place], [place], [place] and [place]. This disclosure is being madepursuant to the Care Everywhere program and may not contain all information available regarding this patient. Last updated 18.[facility] Social History Tobacco Use Types Packs/Day Years Used Date Smoking Tobacco: Never Assessed Sex and Gender Information Value Date Recorded Sex Assigned at Not on file Gender Identity Not on file Sexual Orientation Not on file Procedures * PHENOBARBITAL LEVEL(Performed 07/05/2015) Performed for Convulsions, unspecified convulsion type (HCC) * PRIMIDONE+PHENOBARBITAL LEVEL(Performed 07/05/2015) Performed for Convulsions, unspecified convulsion type (HCC) * LACOSAMIDE(Performed 07/05/2015) Performed for Convulsions, unspecified convulsion type (HCC) * LAMOTRIGINE LEVEL(Performed 07/05/2015) Performed for Convulsions, unspecified convulsion type (HCC) * LEVETIRACETAM LEVEL(Performed 07/05/2015) Performed for Convulsions, unspecified convulsion type (HCC) * GABAPENTIN LEVEL(Performed 07/05/2015) Performed for Convulsions, unspecified convulsion type (HCC) * URINE DRUG SCREEN IMMUNOASSAY(Performed 01/25/2015) Performed for Other, mixed, or unspecified nondependent drug abuse, unspecified (HCC), 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), 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 complex partial seizures, with intractable epilepsy (HCC) * GABAPENTIN LEVEL(Performed 01/25/2015) Performed for Other, mixed, or unspecified nondependent drug abuse, unspecified (HCC), 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), 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 complex partial seizures, with intractable epilepsy (HCC) * LACOSAMIDE(Performed 01/25/2015) Performed for Other, mixed, or unspecified nondependent drug abuse, unspecified (HCC), 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), 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 complex partial seizures, with intractable epilepsy (HCC) * LAMOTRIGINE LEVEL(Performed 01/25/2015) Performed for Other, mixed, or unspecified nondependent drug abuse, unspecified (HCC), 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), 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 complex partial seizures, with intractable epilepsy (HCC) * LEVETIRACETAM LEVEL(Performed 01/25/2015) Performed for Other, mixed, or unspecified nondependent drug abuse, unspecified (HCC), 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), 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 complex partial seizures, with intractable epilepsy (HCC) * ERYTHROCYTE SEDIMENTATION RATE(Performed 01/25/2015) Performed for Other, mixed, or unspecified nondependent drug abuse, unspecified (HCC), 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), 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 complex partial seizures, with intractable epilepsy (HCC) * TIMOTEO BLOOD SCREEN W/REFLEX TITER(Performed 01/25/2015) Performed for Other, mixed, or unspecified nondependent drug abuse, unspecified (HCC), 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), 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 complex partial seizures, with intractable epilepsy (HCC) * RPR(Performed 01/25/2015) Performed for Other, mixed, or unspecified nondependent drug abuse, unspecified (HCC), 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), 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 complex partial seizures, with intractable epilepsy (HCC) * TSH(Performed 01/25/2015) Performed for Other, mixed, or unspecified nondependent drug abuse, unspecified (HCC), 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), 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 complex partial seizures, with intractable epilepsy (HCC) * FOLATE(Performed 01/25/2015) Performed for Other, mixed, or unspecified nondependent drug abuse, unspecified (HCC), 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), 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 complex partial seizures, with intractable epilepsy (HCC) * VITAMIN B12(Performed 01/25/2015) Performed for Other, mixed, or unspecified nondependent drug abuse, unspecified (HCC), 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), 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 complex partial seizures, with intractable epilepsy (HCC) * LACOSAMIDE(Performed 09/25/2014) Performed for Localization-related (focal) (partial) epilepsy and epileptic syndromes with complex partial seizures, with intractable epilepsy (HCC) * LAMOTRIGINE LEVEL(Performed 09/25/2014) Performed for Localization-related (focal) (partial) epilepsy and epileptic syndromes with complex partial seizures, with intractable epilepsy (HCC) * LEVETIRACETAM LEVEL(Performed 09/25/2014) Performed for Localization-related (focal) (partial) epilepsy and epileptic syndromes with complex partial seizures, with intractable epilepsy (HCC) * GABAPENTIN LEVEL(Performed 09/25/2014) Performed for Localization-related (focal) (partial) epilepsy and epileptic syndromes with complex partial seizures, with intractable epilepsy (HCC) * LEVETIRACETAM LEVEL(Performed 05/09/2014) Performed for Unspecified epilepsy without mention of intractable epilepsy (HCC) * LAMOTRIGINE LEVEL(Performed 05/09/2014) Performed for Unspecified epilepsy without mention of intractable epilepsy (HCC) * GABAPENTIN LEVEL(Performed 05/09/2014) Performed for Unspecified epilepsy without mention of intractable epilepsy (HCC) * COMPREHENSIVE METABOLIC PANEL(Performed 05/09/2014) Performed for Unspecified epilepsy without mention of intractable epilepsy (HCC) * CBC W AUTO DIFFERENTIAL(Performed 05/09/2014) Performed for Unspecified epilepsy without mention of intractable epilepsy (HCC) * LACOSAMIDE(Performed 05/09/2014) Performed for Unspecified epilepsy without mention of intractable epilepsy (HCC) * LACOSAMIDE(Performed 01/19/2014) Performed for 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) * GABAPENTIN LEVEL(Performed 01/19/2014) Performed for 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) * LEVETIRACETAM LEVEL(Performed 01/19/2014) Performed for 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) * ERYTHROCYTE SEDIMENTATION RATE(Performed 01/19/2014) Performed for 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) * COMPREHENSIVE METABOLIC PANEL(Performed 01/19/2014) Performed for 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) * CBC W AUTO DIFFERENTIAL(Performed 01/19/2014) Performed for 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) * LAMOTRIGINE LEVEL(Performed 12/16/2013) Performed for 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) * ZONISAMIDE LEVEL(Performed 12/16/2013) Performed for 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) Results * (ABNORMAL) LACOSAMIDE (07/05/2015 9:43 AM BOILERMAKER'S ASSISTANT) Only the most recent of5 resultswithin the time period is included. Lacosamide 12.9(H) 5.0 - 10.0 ug/mL 07/06/2015 7:11 PM BOILERMAKER'S ASSISTANT [facility] ([facility]) Comment: ? Limit of Detection 0.5 [...] Lab Venipuncture / Unknown 07/05/2015 9:43 AM BOILERMAKER'S ASSISTANT 07/05/2015 9:55 AM BOILERMAKER'S ASSISTANT Narrative [facility] ([facility]) - 07/06/2015 7:11 PM BOILERMAKER'S ASSISTANT Performed at: ??01 - [facility] ??[id number] Senior Medical Billing Specialist: Raman Jeffries MD, Phone: ??[phone] Ezequiel Ray MD LAB - CHEMISTRY ALICIAE RABLES Performing Organization Address [facility] de Phone Number [facility] ([facility]) * LEVETIRACETAM LEVEL (07/05/2015 9:43 AM BOILERMAKER'S ASSISTANT) Only the most recent of5 resultswithin the time period is included. [facility] Levetiracetam 32.1 10.0 - 40.0 ug/mL 07/08/2015 2:35 AM [facility] ([facility]) Blood specimen (specimen) BLOOD SPECIMEN / Unknown Lab Venipuncture / Unknown 07/05/2015 9:43 AM BOILERMAKER'S ASSISTANT 07/05/2015 9:55 AM BOILERMAKER'S ASSISTANT [facility] ([facility]) - 07/08/2015 2:35 AM BOILERMAKER'S ASSISTANT Performed at: ??01 - [address] ??[id number] Senior Medical Billing Specialist: Rmaan Jeffries MD, Phone: ??[phone] Ezequiel Ray MD LAB - THERAPEUTIC DR UG MONITORING ORDERABLES Performing Organization Address [facility]/ZIP Co de Phone Number [facility] ([facility]) * LAMOTRIGINE LEVEL (07/05/2015 9:43 AM BOILERMAKER'S ASSISTANT) Only the most recent of5 resultswithin the time period is included. Pathologist [facility] Lamotrigine None Detected 2.0 - 20.0 ug/mL 07/07/2015 5:08 PM BOILERMAKER'S ASSISTANT [facility] ([facility]) Comment:Detection Limit = 1. 0 Blood specimen (specimen) BLOOD SPECIMEN / Unknown Lab Venipuncture / Unknown 07/05/2015 9:43 AM BOILERMAKER'S ASSISTANT 07/05/2015 9:55 AM BOILERMAKER'S ASSISTANT Narrative [facility] ([facility]) - 07/07/2015 5:08 PM BOILERMAKER'S ASSISTANT Performed at: ??01 - [facility] ??[id number] Senior Medical Billing Specialist: Raman Jeffries MD, Phone: ??[phone] Ezequiel Ray MD LAB - THERAPEUTIC DR OSUNA MONITORING ORDERABLES Performing Organization Address City/[facility]/ZIP Co de Phone Number [facility] ([facility]) * GABAPENTIN LEVEL (07/05/2015 9:43 AM BOILERMAKER'S ASSISTANT) Only the most recent of5 resultswithin the time period is included. Gabapentin 15.7 4.0 - 16.0 ug/mL 07/07/2015 5:08 PM BOILERMAKER'S ASSISTANT [facility] ([facility]) Comment:Detection Limit = 1. 0 Blood specimen (specimen) BLOOD SPECIMEN / Unknown Lab Venipuncture / Unknown 07/05/2015 9:43 AM BOILERMAKER'S ASSISTANT 07/05/2015 9:55 AM BOILERMAKER'S ASSISTANT Narrative [facility] ([facility]) - 07/07/2015 5:08 PM BOILERMAKER'S ASSISTANT Performed at: ??01 - [address] ??[id number] Senior Medical Billing Specialist: Raman Jeffries MD, Phone: ??[phone] Ezequiel Ray MD LAB - CHEMISTRY ORDE RABLES [facility] ([facility]) * (ABNORMAL) PHENOBARBITAL LEVEL (07/05/2015 9:43 AM BOILERMAKER'S ASSISTANT) Phenobarbital <2.1(L) 15.0 - 40.0 ug/mL 07/05/2015 10:25 AM BOILERMAKER'S ASSISTANT [facility] Blood BLOOD SPECIMEN / Unknown Lab Venipuncture / Unknown 07/05/2015 9:43 AM BOILERMAKER'S ASSISTANT 07/05/2015 9:55 AM BOILERMAKER'S ASSISTANT Ezequiel Ray MD LAB - CHEMISTRY CALEB RODRIGES [facility] [address] [place] [address] * (ABNORMAL) PRIMIDONE+METABOLITE (07/05/2015 9:43 AM BOILERMAKER'S ASSISTANT) Primidone 1.0(L) 5.0 - 12.0 ug/mL 07/06/2015 6:17 AM BOILERMAKER'S ASSISTANT [facility] ([facility]) Comment: ?Detection Limit = 0.3 ? <0.3 indicates None Detected Phenobarbital <2(L) 15 - 40 ug/mL 07/06/2015 6:17 AM BOILERMAKER'S ASSISTANT [facility] ([facility]) Comment: Verified by repeat analysis ?Detection Limit = 2 ? <2 indicates None Detected Blood specimen (specimen) BLOOD SPECIMEN / Unknown Lab Venipuncture / Unknown 07/05/2015 9:43 AM BOILERMAKER'S ASSISTANT 07/05/2015 9:55 AM BOILERMAKER'S ASSISTANT Narrative [facility] ([facility]) - 07/06/2015 6:17 AM BOILERMAKER'S ASSISTANT Performed at: ??01 - [facility] [address] ??[id number] Senior Medical Billing Specialist: Wood Sun PhD, Phone: ??[phone] Ezequiel Ray MD LAB - CHEMISTRY CALEB RODRIGES [facility] ([facility]) * RPR (01/25/2015 5:08 PM CDT) RPR Non Reactive Non Reactive 01/26/2015 12:53 PM CDT [facility] Blood BLOOD SPECIMEN / Unknown Lab Venipuncture / Unknown 01/25/2015 5:08 PM CDT 01/25/2015 5:30 PM CDT Ezequiel Ray MD LAB - CHEMISTRY CALEB RODRIGES Performing Organization Address [facility] Co de Phone Number [facility] [address] [place] [address] * TIMOTEO BLOOD SCREEN W/REFLEX TITER (01/25/2015 5:08 PM CDT) [facility] TIMOTEO Negative Negative 01/26/2015 9:01 AM CDT [facility] Blood BLOOD SPECIMEN / Unknown Lab Venipuncture / Unknown 01/25/2015 5:08 PM CDT 01/25/2015 5:30 PM CDT Ezequiel Ray MD LAB - CHEMISTRY CALEB RODRIGES Performing Organization Address [facility] Co de Phone Number [facility] [address] [place] [address] * SED RATE WESTERGREN (01/25/2015 5:08 PM CDT) Only the most recent of2 resultswithin the time period is included. [facility] Erythrocyte Sedimentation Rate Westergren 6 0 - 20 mm/hr 01/25/2015 5:49 PM CDT [facility] Blood BLOOD SPECIMEN / Unknown Lab Venipuncture / Unknown 01/25/2015 5:08 PM CDT 01/25/2015 5:30 PM CDT Ezequiel Ray MD LAB - HEMATOLOGY ORD SID Performing Organization Address [facility] Co de Phone Number [facility] [address] [place] [address] * (ABNORMAL) DRUG SCREEN TOX URINE PANEL (01/25/2015 5:08 PM CDT) [facility] Amphetamines Screen Urine Not Detected Not Detected 01/25/2015 5:48 PM CDT [facility] Barbiturates Screen Urine Not Detected Not Detected 01/25/2015 5:48 PM CDT [facility] Benzodiazepines Screen Urine Not Detected Not Detected 01/25/2015 5:48 PM CDT [facility] Cannabinoids Screen Urine Not Detected Not Detected 01/25/2015 5:48 PM CDT [facility] Cocaine Screen Urine Not Detected Not Detected 01/25/2015 5:48 PM CDT [facility] Methadone Screen Urine Not Detected Not Detected 01/25/2015 5:48 PM CDT [facility] Opiate Screen Urine Detected(A) Not Detected 01/25/2015 5:48 PM CDT [facility] Phencyclidine Screen Urine Not Detected Not Detected 01/25/2015 5:48 PM CDT [facility] Urine URINE / Unknown Collection / Unknown 01/25/2015 5:08 PM CDT 01/25/2015 5:30 PM CDT Narrative [facility] - 01/25/2015 5:48 PM CDT This drug screen is designed for MEDICAL purposes only. It is not to be used for legal purposes, including but not limited to worker's comp, police investigations, occupational issues, child custody, etc. ??Any positive result is only presumptive and must be confirmed with a separate confirmatory test ordered by the physician. Drug Screening Test Cutoff Values: AMPHETAMINES ?1000 ng/ml BARBITURATES ? 200 ng/ml BENZODIAZEPINES ??200 ng/ml CANNABINOIDS(THC) 50 ng/ml COCAINE ?300 ng/ml METHADONE ?300 ng/ml OPIATES ?300 ng/ml PHENCYCLIDINE(PCP)25 ng/ml Ezequiel Ray MD LAB - URINE CHEMISTR Y ORDERABLES [facility] [address] [place] [address] * FOLATE (01/25/2015 5:08 PM CDT) Folate 10.9 3.1 - 17.5 ng/mL 01/25/2015 7:18 PM CDT [facility] Blood BLOOD SPECIMEN / Unknown Lab Venipuncture / Unknown 01/25/2015 5:08 PM CDT 01/25/2015 5:30 PM CDT Ezequiel Ray MD LAB - CHEMISTRY CALEB RODRIGES Performing Organization Address [facility] Co de Phone Number [facility] [id number] [place] [phone] * VITAMIN B12 (01/25/2015 5:08 PM CDT) Pathologist [facility] Vitamin B12 350 211 - 911 pg/mL 01/25/2015 6:21 PM CDT [facility] Blood BLOOD SPECIMEN / Unknown Lab Venipuncture / Unknown 01/25/2015 5:08 PM CDT 01/25/2015 5:30 PM CDT Ezequiel Ray MD LAB - CHEMISTRY CALEB RODRIGES Performing Organization Address [facility] de Phone Number [facility] [address] [place] [phone] * TSH (01/25/2015 5:08 PM CDT) Pathologist [facility] TSH 2.11 0.358 - 3.740 uIU/mL 01/25/2015 6:13 PM CDT [facility] Blood BLOOD SPECIMEN / Unknown Lab Venipuncture / Unknown 01/25/2015 5:08 PM CDT 01/25/2015 5:30 PM CDT Ezequiel Ray MD LAB - CHEMISTRY CALEB RODRIGES Performing Organization Address [facility] de Phone Number [facility] [address] [place] [address] * CBC W AUTO DIFFERENTIAL (05/09/2014 11:10 AM CDT) Only the most recent of2 resultswithin the time period is included. WBC 5.2 4.4 - 10.7 x10^9/L 05/09/2014 11:41 AM CDT [facility] RBC 4.06 3.80 - 5.20 x10^12/L 05/09/2014 11:41 AM CDT [facility] Hemoglobin 13.3 12.0 - 15.6 gm/dL 05/09/2014 11:41 AM CDT [facility] Hematocrit 39.0 35.9 - 45.5 % 05/09/2014 11:41 AM CDT [facility] MCV 96.1 80.7 - 98.3 fl 05/09/2014 11:41 AM CDT [facility] MCH 32.8 26.7 - 34.0 pg 05/09/2014 11:41 AM CDT [facility] MCHC 34.1 30.8 - 35.9 gm/dL 05/09/2014 11:41 AM CDT [facility] Platelet Count 221 153 - 416 x10^9/L 05/09/2014 11:41 AM CDT [facility] RDW-CV 12.7 12.1 - 14.9 % 05/09/2014 11:41 AM CDT [facility] MPV 10.4 9.4 - 12.9 fl 05/09/2014 11:41 AM CDT [facility] Neutrophils % 54.7 44.0 - 73.0 % 05/09/2014 11:41 AM CDT [facility] Lymphocytes % 33.5 20.0 - 43.0 % 05/09/2014 11:41 AM CDT [facility] Monocytes % 8.7 5.0 - 13.0 % 05/09/2014 11:41 AM CDT [facility] Eosinophils % 2.1 0.0 - 6.0 % 05/09/2014 11:41 AM CDT [facility] Basophils % 0.8 0.0 - 2.0 % 05/09/2014 11:41 AM CDT [facility] Immature Granulocytes 0.2 0 - 1 % 05/09/2014 11:41 AM CDT [facility] Neutrophil Absolute 2.84 2.01 - 7.14 x10^9/L 05/09/2014 11:41 AM CDT [facility] Lymphocytes Absolute 1.74 1.07 - 3.94 x10^9/L 05/09/2014 11:41 AM CDT [facility] Monocytes Absolute 0.45 0.26 - 1.07 x10^9/L 05/09/2014 11:41 AM CDT [facility] Eosinophils Absolute 0.11 0 - 0.47 x10^9/L 05/09/2014 11:41 AM CDT [facility] Basophils Absolute 0.04 0 - 0.08 x10^9/L 05/09/2014 11:41 AM CDT [facility] Immature Granulocytes Absolute 0.01 0.00 - 0.06 x10^9/L 05/09/2014 11:41 AM CDT [facility] Blood BLOOD SPECIMEN / Unknown Lab Venipuncture / Unknown 05/09/2014 11:10 AM CDT 05/09/2014 11:34 AM CDT Ezequiel Ray MD LAB - HEMATOLOGY ORD ERABLES [facility] [address] [place] [address] * COMPREHENSIVE METABOLIC PANEL (05/09/2014 11:10 AM CDT) Only the most recent of2 resultswithin the time period is included. Glucose 78 74 - 106 mg/dL 05/09/2014 12:01 PM CDT [facility] Sodium 139 136 - 145 mmol/L 05/09/2014 12:01 PM CDT [facility] Potassium 4.2 3.5 - 5.1 mmol/L 05/09/2014 12:01 PM CDT [facility] Chloride 107 98 - 107 mmol/L 05/09/2014 12:01 PM CDT [facility] CO2 24 22 - 31 mmol/L 05/09/2014 12:01 PM CDT [facility] Calcium 8.9 8.5 - 10.1 mg/dL 05/09/2014 12:01 PM T [facility] Anion Gap 8 5 - 15 mmol/L 05/09/2014 12:01 PM CDT [facility] BUN 15 7 - 21 mg/dL 05/09/2014 12:01 PM CDT [facility] Creatinine 0.67 0.50 - 1.30 mg/dL 05/09/2014 12:01 PM CDT [facility] eGFR by MDRD >60 >60 mL/min/1.7 3m2 05/09/2014 12:01 PM CDT [facility] eGFR by MDRD >60 >60 mL/min/1.7 3m2 05/09/2014 12:01 PM CDT [facility] Alkaline Phosphatase 71 38 - 126 U/L 05/09/2014 12:01 PM CDT [facility] ALT 17 12 - 78 U/L 05/09/2014 12:01 PM CDT [facility] AST 11 5 - 40 U/L 05/09/2014 12:01 PM CDT [facility] Protein Total 7.2 6.4 - 8.2 gm/dL 05/09/2014 12:01 PM CDT [facility] Albumin 3.7 3.4 - 5.0 gm/dL 05/09/2014 12:01 PM CDT [facility] Bilirubin Total 0.4 0.2 - 1.0 mg/dL 05/09/2014 12:01 PM CDT [facility] Blood BLOOD SPECIMEN / Unknown Lab Venipuncture / Unknown 05/09/2014 11:10 AM CDT 05/09/2014 11:34 AM CDT Ezequiel Ray MD LAB - CHEMISTRY CALEB RODRIGES Performing Organization Address City/[facility]/ZIP Co de Phone Number [facility] [address] [place] [address] * ZONISAMIDE LEVEL (12/16/2013 12:09 PM CDT) Zonisamide < 2 ug/mL 12/19/2013 2:25 PM CDT [employer] Comment: INTERPRETIVE INFORMATION: Zonisamide Therapeutic range: Not [...] CDT Ezequiel Ray MD LAB - CHEMISTRY CALEB RODRIGES [facility] [employer] [address] [place] [address]
--- OUTSIDE RECORDS SUMMARY | 2024-07-16 12:47 | XMS_ITS | Encounter Summary ---
Author Organization [facility] Care Team Providers Care Concrete Polisher Name Role Phone Va Ferrell MD Unavailable [phone] Jacqui Rooney OD Unavailable [phone] Soto Vera MD Unavailable Unavailable Davi Georges Primary Care Provider [phone] Inna Fair MD Unavailable Encounter Details Date Type Department Care Team (Latest Contact Info) Description 03/18/2023 Travel Social History Tobacco Use Types Packs/Day Years Used Date Smoking Tobacco: Former Cigarettes Q uit: 06/10/2018 Smokeless Tobacco: Never Alcohol Use Standard Drinks/Week Comments Never 0 [...] Exposure Response Date Recorded In the last 10 days, have yo u been in contact with someone who was confirmed or suspected to have Coronavirus/COVID-19? No / Unsure 03/18/2023 8:53 AM CDT documented as of this encounter Functional Status * Question Answer Date of Assessment Author Little interest or pleasure in doing things Not at all 03/18/2023 8:56 AM CDT Itz Martinez CMA Feeling down, depressed, or hopeless Not at all 03/18/2023 8:56 AM CDT Edwin Martinez CMA * Over the past 2 weeks, how often have you been bothered by any of the following problems? Question Answer Date of Assessment Author Patient Health Questionnaire-2 Score 0 03/18/2023 8:56 AM CDT Malissa Martinez CMA documented as of this encounter Plan of Treatment Not on file documented as of this encounter Visit Diagnoses Not on filedocumented in this encounter Additional Health Concerns Assessment Noted Time PHQ-9 Depression Total Score: 0 12/25/19 17 1:00 PM CDT documented as of this encounter Care Teams Concrete Polisher Relationship Specialty Start Date End Date Davi Georges [address] [place] [address] PCP - General Family Medicine 02/05/23 Va Ferrell MD [employer] [address] [address] Consulting Physician Obstetrics & Gynecology 06/04/16 Jacqui Rooney OD [address] [place] [address] Consulting Physician Optometry 10/15/16 03/26/23 oSto Vera MD [address] [place] [address] Consulting Physician Neurology 09/28/20 03/25/23 Inna Fair MD [address] [place] [address] Consulting Physician Oncology 02/05/23 Will Augustine MD Consulting Physician Neurology 04/22/16 documented as of this encounter
--- OUTSIDE RECORDS SUMMARY | 2024-07-16 12:47 | XMS_ITS | Encounter Summary ---
Author Organization [employer] Care Team Providers Care Tire Man Name Role Phone Va Ferrell MD Unavailable [phone] Jacqui Rooney OD Unavailable [phone] Soto Vera MD Unavailable Unavailable Davi Georges Primary Care Provider [phone] Inna Fair MD Unavailable Encounter Details Date Type Department Care Team (Latest Contact Info) Description 03/09/2023 Travel Social History Tobacco Use Types Packs/Day [...] suspected to have Coronavirus/COVID-19? No / Unsure 03/09/2023 8:33 AM CDT documented as of this encounter Functional Status * Question Answer Date of Assessment Author Little interest or pleasure in doing things Not at all 03/09/2023 8:55 AM CDT Itz Martinez CMA Feeling down, depressed, or hopeless Not at all 03/09/2023 8:55 AM CDT Edwin Martinez CMA * Over the past 2 weeks, how often have you been bothered by any of the following problems? Question Answer Date of Assessment Author Patient Health Questionnaire-2 Score 0 03/09/2023 8:55 AM CDT Malissa Martinez CMA documented as of this encounter Plan of Treatment Not on file documented as of this encounter Visit Diagnoses Not on filedocumented in this encounter Additional Health Concerns Assessment Noted Time PHQ-9 Depression Total Score: 0 12/25/19 17 1:00 PM CDT documented as of this encounter Care Teams Tire Man Relationship Specialty Start Date End Date Davi Georges [address] [place] [address] PCP - General Family Medicine 02/05/23 Va Ferrell MD [employer] [address] [address] Consulting Physician Obstetrics & Gynecology 06/04/16 Jacqui Rooney OD [address] [place] [address] Consulting Physician Optometry 10/15/16 03/26/23 Soto Vera MD [address] [place] [address] Consulting Physician Neurology 09/28/20 03/25/23 Inna Fair MD [address] [place] [address] Consulting Physician Oncology 02/05/23 Will Augustine MD Consulting Physician Neurology 04/22/16 documented as of this encounter
--- OUTSIDE RECORDS SUMMARY | 2024-07-16 12:47 | XMS_ITS | Encounter Summary ---
Author Organization [facility] Address [address] [place] [address] Phone Care Team Providers Care Environmental Health Sanitarian Name Role Phone Va Ferrell MD Unavailable Jacqui Rooney OD Unavailable [phone] Soto Vera MD Unavailable Unavailable Davi Georges Primary Care Provider [phone] Inna Fair MD Unavailable Encounter Details Date Type Department Care Team (Late st Contact Info) Description 03/09/2023 9:20 AM CDT Lab [facility] [address] [address] Lab, [facility] Iron overload Social History Tobacco Use Types Packs/Day Years [...] Procedure Name Priority Date/Time Associated Diagnosis Comments IRON W/ IRON BINDING CAPACITY OH Routine 03/09/2023 9:31 AM CDT Iron overload CBC WITH AUTO DIFF OH Routine 03/09/2023 9:31 AM CDT HERED.HEMOCHROMATOS IS, [place] [id number] Routine 03/09/2023 9:31 AM CDT Iron overload FERRITIN Routine 03/09/2023 9:31 AM CDT Iron overload CMP (COMPREHENSIVE METABOLIC PANEL) Routine 03/09/2023 9:31 AM CDT Iron overload documented in this encounter Results * (ABNORMAL) CBC WITH AUTO DIFF OH (03/09/2023 9:31 AM CDT) WBC 5.0 4.0 - 10.0 10*3/uL [facility] S[facility]IOR [employer] ON LICENSE [facility] HGB 13.3 11.2 - 15.7 g/dL [facility] S[facility]IOR [employer] ON LICENSE [facility] HCT 39.9 34.1 - 44.9 % [facility] SENIOR [employer] ON LICENSE [facility] PLT 215 163 - 369 10*3/uL [facility] SENIOR [employer] DEVEL[employer] ON LICENSE OF [facility] MPV 11.0 9.4 - 12.4 fL [facility] SENIOR [employer]EL[employer] ON LICENSE [facility] RBC 3.96 3.93 - 5.22 10*6/uL [facility] SENIOR [employer] DEVELOPER ON LICENSE OF [facility] MCV 101(H) 79 - 95 fL [facility] SENIOR [employer] DEVELOPER ON LICENSE [facility] MCH 33.6(H) 25.6 - 32.2 pg [facility] SENIOR [employer]EL[employer] ON LICENSE [facility] MCHC 33.3 32.2 - 36.5 g/dL [facility] SENIOR [employer] DEVEL[employer] ON LICENSE [facility] RDW 12.9 11.6 - 14.4 % [facility]ER SENIOR [employer] DEVELOPER ON [facility] Neutrophils % 52.7 36.0 - 66.0 % [facility]ER SENIOR [employer] DEVELOPER ON [facility] Lymphocytes % 32.5 19.0 - 40.0 % [facility]ER SENIOR [employer] WE[employer] DEVELOPER ON [facility] Monocytes % 9.4 4.1 - 12.1 % [facility]ER SENIOR [employer] DEVELOPER ON [facility] Eosinophils % 4.2(H) 0.0 - 3.5 % [facility]ER SENIOR [employer] DEVELOPER ON [facility] Basophils % 0.6 0.0 - 1.0 % CANCER SENIOR [employer] DEVELOPER ON [facility] Absolute Neutrophils 2.7 1.4 - 6.6 10*3/uL [facility] SENIOR [employer] DEVELOPER ON LICENSE [facility] Absolute Lymphocytes 1.6 0.8 - 4.0 10*3/uL [facility]ER SENIOR PHP [employer] DEVELOPER ON LICENSE [facility] Absolute Monocytes 0.5 0.2 - 1.2 10*3/uL [facility] SENIOR PHP WE[employer] DEVELOPER ON LICENSE [facility] Absolute Eosinophils 0.2 0.0 - 0.4 10*3/uL CAN[facility]ER SENIOR PHP WE[employer] DEVELOPER ON LICENSE [facility] Absolute Basophils 0.0 0.0 - 0.1 10*3/uL [facility]ER SENIOR PHP WE[employer] DEVELOPER ON LICENSE [facility] WBC Estimate Normal [facility] SENIOR PHP WEB DEVELOPER ON LICENSE OF [facility] Platelet Estimate Normal CANCER SENIOR PHP WE[employer] DEVELOPER ON LICENSE [facility] RBC Morphology Abnormal [facility] Macrocytosis 1+ CANCER SENIOR PHP WE[employer] DEVELOPER ON LICENSE [facility] 03/09/2023 9:31 AM CDT us Inna Fair MD LAB SEND OUTS Final Result [facility] SENIOR [employer] ON LICENSE [facility] [address] [place] [address], * CMP (COMPREHENSIVE METABOLIC PANEL) (03/09/2023 9:31 AM CDT) Glucose 91 70 - 105 mg/dL [facility] SENIOR [employer] DEVEL[employer] ON LICENSE [facility] Blood Urea Nitrogen 13 7 - 25 mg/dL [facility] SENIOR PHP WEB DEVELOPER ON LICENSE [facility] Creatinine 0.8 0.6 - 1.2 mg/dL [facility] SENIOR [employer] DEVELOPER ON LICENSE [facility] Sodium 140 136 - 145 mEq/L [facility] Potassium 4.6 3.5 - 5.1 mEq/L [facility] Chloride 105 98 - 107 mEq/L [facility] Bicarbonate 29 21 - 31 mEq/L [facility] Total Bilirubin 0.4 0.3 - 1.0 mg/dL [facility] Alk. Phosphatase 101 34 - 104 U/L [facility] Aspartate Aminotransferase 13 13 - 39 U/L [facility] Alanine Aminotransferase 10 7 - 52 U/L [facility] Total Protein 6.6 6.4 - 8.9 g/dL [facility] Albumin 4.0 3.5 - 5.7 g/dL [facility] Calcium 9.5 8.6 - 10.3 mg/dL [facility] Anion Gap 10.6 7.0 - 15.0 mEq/L [facility] Globulin 2.6 2.0 - 3.5 g/dL [facility] EGFR 91 >60 ml/min/1. 73m2 [facility] Comment: This eGFR is calculated using 2020 CKD-EPI Creatinine equation without race modifier based on the NKF-ASN task force recommendations Blood 03/09/2023 9:31 AM CDT [facility] - 03/09/2023 10:40 AM CDT Release to patient->Immediate IS THE PATIENT REQUIRED TO BE FASTING FOR 8 HOURS?->No us Inna Fair MD CHEMISTRY ORDERABLES Final Resul t CANCER SENIOR PHP WEB DEVELOPER ON [facility] [address] [address], * FERRITIN (03/09/2023 9:31 AM CDT) Ferritin 46 11 - 307 ng/mL [facility] Blood 03/09/2023 9:31 AM CDT Narrative [facility] - 03/09/2023 2:53 PM CDT Release to patient->Immediate us Inna Fair MD CHEMISTRY ORDERABLES Final Resul t Performing Organization Address City/[facility]/ZIP Co de Phone Number [facility] [place] [address] [place] [address], * IRON W/ IRON BINDING CAPACITY [place] (03/09/2023 9:31 AM CDT) IRON 106 50 - 212 ug/dL [facility] UIBC 163 155 - 355 ug/dL [facility] TIBC 269 261 - 478 ug/dl [facility] % Saturation 39 20 - 50 % [facility] 03/09/2023 9:31 AM CDT Narrative [facility] - 03/09/2023 10:40 AM CDT Release to patient->Immediate us Inna Fair MD LAB SEND OUTS Final Result Performing Organization Address [facility]/ZIP Co de Phone Number [facility] [address] [address], * HERED.HEMOCHROMATOSIS, [place] [id number] (03/09/2023 9:31 AM CDT) Pathologist [facility] HEREDITARY HEMOCHROMATOSIS COMMENT [facility] Comment: RESULTS: C.845G>A (P.[id number]) - NOT DETECTED C.187C>G (P.[id number]) - DETECTED, HETEROZYGOUS C.193A>T (P.[id number]) - NOT DETECTED NOT ASSOCIATED WITH INCREASED RISK TO DEVELOP CLINICAL SYMPTOMS OF HEREDITARY HEMOCHROMATOSIS. IN SYMPTOMATIC INDIVIDUALS, OTHER CAUSES OF IRON OVERLOAD SHOULD BE EVALUATED. SEE ADDITIONAL INFORMATION AND COMMENTS. 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 PATIENTS MAY HAVE A GENETIC DIAGNOSIS OF HEREDITARY HEMOCHROMATOSIS AND NEVER SHOW CLINICAL SYMPTOMS. CLINICAL SYMPTOMS TYPICALLY APPEAR BETWEEN 40 TO 60 YEARS IN MALES AND AFTER MENOPAUSE IN FEMALES. SIGNS AND SYMPTOMS MAY INCLUDE ORGAN DAMAGE, PRIMARILY IN THE LIVER, RISK FOR HEPATOCELLULAR CARCINOMA, DIABETES, AND HEART DISEASE DUE TO IRON ACCUMULATION. LIFE EXPECTANCY MAY BE DECREASED IN INDIVIDUALS WHO DEVELOP CIRRHOSIS. TREATMENT FOR CLINICALLY SYMPTOMATIC INDIVIDUALS MAY INCLUDE THERAPEUTIC PHLEBOTOMY. LIVER TRANSPLANT MAY BE USED TO TREAT END STAGE LIVER FAILURE. FOR PREVENTIVE CARE, MONITORING FOR IRON OVERLOAD IS RECOMMENDED FOR PATIENTS WHO ARE HOMOZYGOUS FOR C.845G>A (P.[id number]) AND HAVE YET TO EXPERIENCE CLINICAL SYMPTOMS. COMMENTS: THE MOST COMMON HFE VARIANTS ASSOCIATED WITH HEREDITARY HEMOCHROMATOSIS ARE C.845G>A (P.[id number]), C.187C>G (P.[id number]), C.193A>T (P.[id number]). WHILE PATIENTS HOMOZYGOUS FOR C.845G>A (P.[id number]) ARE THE MOST LIKELY TO PRESENT CLINICAL SYMPTOMS, LESS THAN 10% DEVELOP CLINICALLY SIGNIFICANT IRON OVERLOAD WITH TISSUE AND ORGAN DAMAGE. GENETIC COUNSELING IS RECOMMENDED TO DISCUSS THE POTENTIAL CLINICAL IMPLICATIONS OF POSITIVE RESULTS, WELL RECOMMENDATIONS FOR TESTING FAMILY MEMBERS. GENETIC COORDINATORS ARE AVAILABLE FOR HEALTH CARE PROVIDERS TO DISCUSS RESULTS AT [phone] ([phone]). TEST DETAILS: THREE VARIANTS ANALYZED: C.845G>A (P.[id number]), COMMONLY REFERRED TO C282Y C.187C>G (P.[id number]), COMMONLY REFERRED TO H63D C.193A>T (P.[id number]), COMMONLY REFERRED TO S65C METHODS/LIMITATIONS: DNA ANALYSIS OF THE HFE GENE ([id number]) WAS PERFORMED BY PCR AMPLIFICATION FOLLOWED BY RESTRICTION ENZYME DIGESTION ANALYSES. RESULTS MUST BE COMBINED WITH CLINICAL INFORMATION FOR THE MOST ACCURATE INTERPRETATION. MOLECULAR- BASED TESTING IS HIGHLY ACCURATE, BUT IN ANY LABORATORY TEST, DIAGNOSTIC ERRORS MAY OCCUR. FALSE POSITIVE OR FALSE NEGATIVE RESULTS MAY OCCUR FOR REASONS THAT INCLUDE GENETIC VARIANTS, BLOOD TRANSFUSIONS, BONE MARROW TRANSPLANTATION, SOMATIC OR TISSUE-SPECIFIC MOSAICISM, MISLABELED SAMPLES, OR ERRONEOUS REPRESENTATION OF FAMILY RELATIONSHIPS. THIS TEST WAS DEVELOPED AND ITS PERFORMANCE CHARACTERISTICS DETERMINED BY [employer]. IT HAS NOT BEEN CLEARED OR APPROVED BY THE FOOD AND DRUG ADMINISTRATION. REFERENCES: KEITH BR, CHARLIE PC, SILVERIO KV, SHAUNA LW, DUC ; [employer] LIVER DISEASES. DIAGNOSIS AND MANAGEMENT OF HEMOCHROMATOSIS: 2011 PRACTICE GUIDELINE BY THE [employer] THE [employer]Y OF LIVER DISEASES. HEPATOLOGY. 2011 JAN;54(1):328-43. DOI: 10.1002/HEP.66646. PMID: [id number]; PMCID: [id number]. MIRI G, LELIA P, AYANNA DW, SAMMY H, AKBAR O, LIZANDRO S, CARLITOS I, CAROLINA M, CATHY S. QN BEST PRACTICE GUIDELINES FOR THE MOLECULAR GENETIC DIAGNOSIS OF HEREDITARY HEMOCHROMATOSIS (HH). EUR J HUM ALEJANDRO. 2016 OCT;24(4):479-95. DOI: 10.1038/EJHG.2015.128. EPUB 2014JAN 24. PMID: [id number]; PMCID: [id number]. [place]VIEWED [place], [place] [id number] COMMENT CANCER SENIOR [employer] WE[employer] DEVELOPER ON LICENSE OF [facility] Comment: TECHNICAL COMPONENT PERFORMED AT [facility] PROFESSIONAL COMPONENT PERFORMED BY: ASIF BEAL, PH.D., [facility] DIRECTOR, MOLECULAR GENETICS [address] [place] [address] 03/09/2023 9:31 AM CDT Narrative CANCER SENIOR [employer] WE[employer] DEVELOPER ON LICENSE OF [facility] - 03/13/2023 11:09 AM CDT TESTING PERFORMED AT: [TG[facility], [facility] [place], [address], PHONE: [phone], RETAIL MERCHANDISER: [facility] Release to patient->Immediate Inna Fair MD LAB SEND OUTS Final Result [facility]ER SENIOR PHP WE[employer] DEVELOPER ON LICENSE OF [facility] [place] [place] [address], documented in this encounter Visit Diagnoses Diagnosis Iron overload Other disorders of iron metabolism documented in this encounter Additional Health Concerns Assessment Noted Time PHQ-9 Depression Total Score: 0 12/25/19 17 1:00 PM CDT documented as of this encounter Care Teams Environmental Health Sanitarian Relationship Specialty Start Date End Date Davi Georges [address] [place] [address] PCP - General Family Medicine 02/05/23 Va Ferrell MD ONE PROFESSION[address] DR [address] [address] Consulting Physician Obstetrics & Gynecology 06/04/16 Jacqui Rooney OD [address] [place] [address] Consulting Physician Optometry 10/15/16 03/26/23 Soto Vera MD [address] [place] [address] Consulting Physician Neurology 09/28/20 03/25/23 Inna Fair MD [address] [place] [address] Consulting Physician Oncology 02/05/23 Will Augustine MD Consulting Physician Neurology 04/22/16 documented as of this encounter
--- OUTSIDE RECORDS SUMMARY | 2024-07-16 12:47 | XMS_ITS | Encounter Summary ---
Author Organization [facility] Address [address] [facility] [place] [address] Care Team Providers Care Tinware Lithograph Press Operator Name Role Phone Kyle Rodríguez MD Primary Care Provider Encounter Details Date Type Department Care Team (Latest Contact Info) Description 01/19/2014 5:33 PM CDT - 01/19/2014 11:59 PM CDT Hospital Encounter [facility] - Laboratory [address] [place] [address] [place] [id number] [address] Discharge Disposition: Home or Self Care [...] Priority Date/Time Associated Diagnosis Comments LACOSAMIDE Routine 01/19/2014 5:41 PM CDT 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) LEVETIRACETAM LEVEL Routine 01/19/2014 5 :41 PM CDT 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) GABAPENTIN LEVEL Routine 01/19/2014 5:41 PM CDT 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) ERYTHROCYTE SEDIMENTATION RATE Routine 01/19/2014 5:41 PM CDT 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 Suggested range 5.0 - 10.0 ug/mL Dose-related range (values at doses of 200-600 mg/day): 2.5 - 18.0 ug/mL Toxic: Not well established. Adverse effects may include dizziness, fatigue, nausea, vomiting, blurred vision and tremor. Test developed and characteristics determined by [employer]. See Compliance Statement B: [employer]/CS Blood specimen (specimen) BLOOD SPECIMEN / Unknown Lab Venipuncture / Unknown 01/19/2014 5:41 PM CDT 01/19/2014 5:41 PM CDT Ezequiel Ray MD LAB - CHEMISTRY CALEB RORDIGES [facility] Organization Address City/State/ZIP Co de Phone Number [email or web address]) [address] * GABAPENTIN LEVEL (01/19/2014 5:41 PM CDT) Gabapentin 4.1 2.0 - 20.0 ug/mL 01/24/2014 3:31 PM CDT [email or web address] ([facility]) Comment: INTERPRETIVE INFORMATION: ??Gabapentin Therapeutic Range: 2 - 20 ug/mL Toxic: Not well established Pharmacokinetics of gabapentin vary widely among patients, particularly those with compromised renal function. Adverse effects may include somnolence, dizziness, ataxia, and fatigue. Blood specimen (specimen) BLOOD SPECIMEN / Unknown Lab Venipuncture / Unknown 01/19/2014 5:41 PM CDT 01/19/2014 5:41 PM CDT Ezequiel Ray MD LAB - CHEMISTRY CALEB RODRIGES [facility] [address] [place] [address] * LEVETIRACETAM LEVEL (01/19/2014 5:41 PM CDT) [facility] Levetiracetam 28 12 - 46 ug/mL 01/21/2014 6:30 PM CDT [facility] Comment: INTERPRETIVE INFORMATION: Keppra (Levetiracetam) Therapeutic Range: ??12-46 ug/mL ?Toxic: ??Not well Established Pharmacokinetics of levetiracetam are affected by renal function. Adverse effects may include somnolence, weakness, headache and vomiting. Blood specimen (specimen) BLOOD SPECIMEN / Unknown Lab Venipuncture / Unknown 01/19/2014 5:41 PM CDT 01/19/2014 5:41 PM CDT Ezequiel Ray MD LAB - THERAPEUTIC DR OSUNA MONITORING ORDERABLES Performing Organization Address [facility]/ZIP Co de Phone Number [facility] [address] [place] [address] * SED RATE WESTERGREN (01/19/2014 5:41 PM CDT) [facility] Erythrocyte Sedimentation Rate Westergren 6 0 - 20 mm/hr 01/19/2014 6:35 PM CDT [facility] Blood BLOOD SPECIMEN / Unknown Lab Venipuncture / Unknown 01/19/2014 5:41 PM CDT 01/19/2014 5:41 PM CDT Ezequiel Ray MD LAB - HEMATOLOGY ORD ERABLES [facility] [address] [place] [address] * (ABNORMAL) COMPREHENSIVE METABOLIC PANEL (01/19/2014 5:41 PM CDT) [facility] Glucose 90 74 - 106 mg/dL 01/19/2014 6:19 PM CDT [facility] Sodium 137 136 - 145 mmol/L 01/19/2014 6:19 PM CDT [facility] Potassium 3.6 3.5 - 5.1 mmol/L 01/19/2014 6:19 PM CDT [facility] Chloride 105 98 - 107 mmol/L 01/19/2014 6:19 PM CDT [facility] CO2 28 22 - 31 mmol/L 01/19/2014 6:19 PM CDT [facility] Calcium 9.0 8.5 - 10.1 mg/dL 01/19/2014 6:19 PM CDT [facility] Anion Gap 4(L) 5 - 15 mmol/L 01/19/2014 6:19 PM CDT [facility] BUN 14 7 - 21 mg/dL 01/19/2014 6:19 PM CDT [facility] Creatinine 0.74 0.50 - 1.30 mg/dL 01/19/2014 6:19 PM CDT [facility] eGFR by MDRD >60 >60 mL/min/1.7 3m2 01/19/2014 6:19 PM CDT [facility] eGFR by MDRD >60 >60 mL/min/1.7 3m2 01/19/2014 6:19 PM CDT [facility] Alkaline Phosphatase 78 38 - 126 U/L 01/19/2014 6:19 PM CDT [facility] ALT 20 12 - 78 U/L 01/19/2014 6:19 PM CDT [facility] AST 11 5 - 40 U/L 01/19/2014 6:19 PM CDT [facility] Protein Total 7.8 6.4 - 8.2 gm/dL 01/19/2014 6:19 PM CDT [facility] Albumin 3.9 3.4 - 5.0 gm/dL 01/19/2014 6:19 PM CDT [facility] Bilirubin Total 0.5 0.2 - 1.0 mg/dL 01/19/2014 6:19 PM CDT [facility] Blood BLOOD SPECIMEN / Unknown Lab Venipuncture / Unknown 01/19/2014 5:41 PM CDT 01/19/2014 5:41 PM CDT Ezequiel Ray MD LAB - CHEMISTRY CALEB RODRIGES [facility] Organization Address City/State/ZIP Co de Phone Number [facility] [address] [place] [address] * CBC W AUTO DIFFERENTIAL (01/19/2014 5:41 PM CDT) WBC 6.8 4.4 - 10.7 x10^9/L 01/19/2014 6:03 PM CDT [facility] RBC 4.37 3.80 - 5.20 x10^12/L 01/19/2014 6:03 PM CDT [facility] Hemoglobin 14.3 12.0 - 15.6 gm/dL 01/19/2014 6:03 PM CDT [facility] Hematocrit 41.5 35.9 - 45.5 % 01/19/2014 6:03 PM CDT [facility] MCV 95.0 80.7 - 98.3 fl 01/19/2014 6:03 PM CDT [facility] MCH 32.7 26.7 - 34.0 pg 01/19/2014 6:03 PM CDT [facility] MCHC 34.5 30.8 - 35.9 gm/dL 01/19/2014 6:03 PM CDT [facility] Platelet Count 233 153 - 416 x10^9/L 01/19/2014 6:03 PM CDT [facility] RDW-CV 12.9 12.1 - 14.9 % 01/19/2014 6:03 PM CDT [facility] MPV 10.3 9.4 - 12.9 fl 01/19/2014 6:03 PM CDT [facility] Neutrophils % 63.0 44.0 - 73.0 % 01/19/2014 6:03 PM CDT [facility] Lymphocytes % 26.3 20.0 - 43.0 % 01/19/2014 6:03 PM CDT [facility] Monocytes % 8.7 5.0 - 13.0 % 01/19/2014 6:03 PM CDT [facility] Eosinophils % 1.5 0.0 - 6.0 % 01/19/2014 6:03 PM CDT [facility] Basophils % 0.4 0.0 - 2.0 % 01/19/2014 6:03 PM CDT [facility] Immature Granulocytes 0.1 0 - 1 % 01/19/2014 6:03 PM CDT [facility] Neutrophil Absolute 4.29 2.01 - 7.14 x10^9/L 01/19/2014 6:03 PM CDT [facility] Lymphocytes Absolute 1.79 1.07 - 3.94 x10^9/L 01/19/2014 6:03 PM CDT [facility] Monocytes Absolute 0.59 0.26 - 1.07 x10^9/L 01/19/2014 6:03 PM CDT [facility] Eosinophils Absolute 0.10 0 - 0.47 x10^9/L 01/19/2014 6:03 PM CDT [facility] Basophils Absolute 0.03 0 - 0.08 x10^9/L 01/19/2014 6:03 PM CDT [facility] Immature Granulocytes Absolute 0.01 0.00 - 0.06 x10^9/L 01/19/2014 6:03 PM CDT [facility] Blood BLOOD SPECIMEN / Unknown Lab Venipuncture / Unknown 01/19/2014 5:41 PM CDT 01/19/2014 5:41 PM CDT Ezequiel Ray MD LAB - HEMATOLOGY ORD ERABLES Performing Organization Address City/State/[facility] Co de Phone Number [facility] [address] [place] [address] documented in this encounter Visit Diagnoses Diagnosis 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
--- OUTSIDE RECORDS SUMMARY | 2024-07-16 12:47 | XMS_ITS | Encounter Summary ---
Author Organization [facility] Address [address] [place] [address] Phone Care Team Providers Care Senior Windows Systems Administrator Name Role Phone Sg Richards MD Primary Care Provider [phone] Va Ferrell MD Unavailable Jacqui Rooney Unavailable [phone] Soto Vera MD Unavailable Unavailable Reason for Visit * Reason Onset Date Comments Sore Throat 04/25/2021 Encounter Details Date Type Department Care Team (Late st Contact Info) Description 04/25/2021 Nurse Triage [facility] [address] [place] [address] Sg Richards MD [address] [place] [address] Sore Throat Social History Tobacco Use Types Packs/Day Years [...] encounter Miscellaneous Notes * Telephone Encounter - Kristi Gonzalez RN - 04/25/2021 10:27 AM CDT SITUATION:Patient calling in BACKGROUND:States she has a sore throat and cough for a week ASSESSMENT:States her throat is a nightmare at night States she was gargling with salt water, not helping States she has been using hot tea and honey Patient still has tonsils, but unable to see if there are spots on tonsils States drinking a lot of water States she takes [place] for jaw and motrin for migraine Assistive devices verified COVID screen done Allergies, meds, and pharmacy verified. MyChart is inactive, patient prefers to talk to a person, not use the computer Per guideline advised she be seen today Scheduled an office visit for 04/25/21 at 1620 RECOMMENDATION: See care advice and disposition for Guideline First positive answer recorded, all responses to prior questions were negative. If symptoms increase, change or if new symptoms develop, call your HCP or call back. Recommendations were based on caller information and is not a diagnosis. Verified and reviewed all triage information with caller. Reason for Disposition ??? Patient wants to be seen Protocols used: SORE THROAT-A-OH documented in this encounter Plan of Treatment Not on file documented as of this encounter Visit Diagnoses Not on filedocumented in this encounter Additional Health Concerns Infection Onset Date Last Indicated Resolved Time COVID - 19 04/25/2021 04/25/2021 05/15/2021 12:1 6 AM CDT Assessment Noted Time PHQ-9 Depression Total Score: 0 12/25/19 17 1:00 PM CDT documented as of this encounter Care Teams Senior Windows Systems Administrator Relationship Specialty Start Date End Date Sg Richards MD [address] [place] [address] PCP - General Internal Medicine 03/28/15 08/12/21 Va Ferrell MD [employer] [address] [address] Consulting Physician Obstetrics & Gynecology 06/04/16 Jacqui Rooney OD [address] [place] [address] Consulting Physician Optometry 10/15/16 03/26/23 Soto Vera MD [address] [place] [address] Consulting Physician Neurology 09/28/20 03/25/23 Will Augustine MD Consulting Physician Neurology 04/22/16 documented as of this encounter
--- OUTSIDE RECORDS SUMMARY | 2024-07-16 12:47 | XMS_ITS | Encounter Summary ---
Author Organization [facility] Address [address] [place] [address] Phone Care Team Providers Care Sleep Manager Name Role Phone Va Ferrell MD Unavailable Jacqui Rooney OD Unavailable Soto Vera MD Unavailable Unavailable Dvai Georges Primary Care Provider [phone] Inna Fair MD Unavailable Reason for Visit * Reason Comments Follow-up Encounter Details Date Type Department Care Team ([facility] Contact Info) Description 03/18/2023 9:00 AM CDT Office Visit [facility] [address] [place] [phone] Inna Fair MD [address] [place] [phone] Iron overload (Primary Dx); Monoallelic mutation of HFE gene Social History Tobacco Use Types Packs/Day Years [...] cm (5' 4.25 ) 03/18/2023 8:56 AM C DT Body Mass Index 35.34 03/18/2023 8:56 AM CDT documented in this encounter Functional Status * Question Answer [...] Martinez CMA documented as of this encounter Progress Notes * Inna Fair MD - 03/18/2023 9:00 AM CDT Images from the original note were not included. Patient: Kayla Avila Age: 47 y.o. : 1975 Encounter Dept: [facility] Encounter Date: 03/18/2023 Care Team: Current Providers PCP: Davi Georges Care Team Provider: Will Augustine MD Care Team Provider: Va Ferrell MD Care Team Provider: Jacqui Rooney OD Care Team Provider: Soto Vera MD Care Team Provider: Inna Fair MD Encounter Provider: Inna Fair MD Referring Provider: Davi Georges Consulting Physician: Inna Fair MD HEMATOLOGY HISTORY: This is a 47-year-old female with no significant past medical history. She is referred to our clinic for elevated serum iron and iron saturation. Patient had bloodwork done by her primary care doctor in November of 2022 showing a serum iron of 191 and an iron saturation of 62%. Ferritin was at 41. Kidney function and liver enzymes were okay. CBC done also showed a normal white count, normal H&H, normal platelet count. She denies being on any iron supplements when she had her bloodwork tested. She does not take any multivitamin. No herbal supplements. She does report a family history of hemochromatosis on her paternal side with her cousins and aunt having hemochromatosis and thy get regular phlebotomies. Denies chest pain. She gets short of breath and is going to see her PCP tomorrow for he r shortness of breath. No GI or symptoms. No back pain, joint pain. No skin bronzing. No fatigue. HISTORY OF PRESENT ILLNESS: On 03/18/23, the patient comes back today to follow up on her iron overload workup. Bloodwork done on 03/09/23 showed a normal white count, normal hemoglobin and hematocrit, normal platelet count. Chemistry was normal with kidney function and liver enzymes. Ferritin at 46. Serum iron normal at 106,iron saturation normal at 39%. 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 Results reviewed with patient. No change in clinical status since last visit. DIAGNOSIS: 1. Iron overload. 2. Heterozygous H63D. PAST TREATMENT: CURRENT TREATMENT: TREATMENT GUIDELINES: Consistent with NCCN guidelines. PROGNOSIS: EXPECTED RESPONSE TO TREATMENT: EXPECTED QUALITY OF LIFE DURING TREATMENT: ECOG: PAIN: PLAN FOR PAIN: CODE STATUS: ASSESSMENT: 1. Iron overload. 2. Heterozygous H63D. PLAN: 1. Recent bloodwork with no evidence of iron overload. She does have an H63D heterozygous mutation which usually does not put her at risk for iron overload. But since her iron saturation was elevatedin the past, we will continue monitoring for now. We will repeat levels in three months. 2. Return to clinic in three months. TIME SPENT: REVIEW OF SYSTEMS: A 12-point review of systems was performed, pertinent and positive as mentioned above. All other systems remain negative. PHYSICAL EXAM: GENERAL: Patient is awake, alert and oriented x3. HEENT: Normocephalic, atraumatic, PERRLA, EOMI. Sclerae nonicteric, conjunctivae normal. Nasopharynx negative. Tongue normal, uvula midline, no thrush, no mucosal lesions present. NECK: Supple. No cervical, supraclavicular, or axillary lymphadenopathy. Thyroid not palpable. LUNGS: Clear to auscultation and percussion in all lung byrd, no focal wheezes, rales, or rhonchi. HEART: Regular rhythm and rate. Normal S1, S2, no S3, S4, no murmur, or rub. ABDOMEN: No hepatosplenomegaly, masses, ascites, areas of tenderness, bruits, or hernias. EXTREMITIES: No clubbing, cyanosis, or edema. SKIN: No ecchymosis, petechiae, or rashes. NEURO: Nonfocal. MUSCULOSKELETAL: No joint tenderness or effusion. No spine tenderness. LABORATORY/PATHOLOGY/IMAGING NOTES: All lab results shown below reviewed. Inna Fair MD/dsp Vitals: Vitals: 03/18/23 0856 BP: 126/74 BP Location: Left Arm BP Position: Sitting BP Cuff Size: Regular Pulse: 75 Resp: 18 Temp: 97.3 ??F (36.3 ??C) TempSrc: Temporal SpO2: 95% Weight: 207 lb 8 oz (94.1 kg) Height: 5' 4.25 (1.632 m) Body surface area is 2.07 meters squared. Body mass index is 35.34 kg/m??. Pain Score: 0 - No pain Allergies: Allergies Allergen Reactions ??? Erythromycin Hallucinations and Other (see Comments) Neuro problems Seizure as a baby ??? Silicones [Silicone] Hives ??? Tape [Adhesive Tape] Hives PMH/SgH/FH/SH: Past medical, surgical, family and social histories were reviewed at this visit. Past Medical History Positives Diagnosis Date ??? Arthritis ??? Disorder of iron metabolism ??? Dog bite 61 times ??? Epilepsy (HCC) ??? Injury of jaw 2002 ??? DENNYS (obstructive sleep apnea) ??? Seizures (HCC) Past Surgical History: Procedure Laterality Date ??? CHOLECYSTECTOMY, LAPAROSCOPIC 2018 ??? CYST REMOVAL 2017 ??? JOINT REPLACEMENT left titanium joint ??? MANDIBLE FRACTURE SURGERY 2018 ??? TUBAL LIGATION Family History Problem Relation Age of Onset ??? Diabetes Mother ??? Congestive Heart Failure Mother ??? Cancer Father lung ??? Diabetes Father ??? Hypertension Father ??? High Cholesterol Father ??? Heart Attack Father ??? Liver Disease Father ??? Arrhythmia Sister ??? Seizures Maternal Grandmother ??? Heart Attack Maternal Grandfather ??? Cancer Paternal Grandmother ??? Cancer Paternal Grandfather Family Status Relation Name Status ??? Mother (Not Specified) ??? Father (Not Specified) ??? Sister (Not Specified) ??? MGM (Not Specified) ??? MGF (Not Specified) ??? PGM (Not Specified) ??? PGF (Not Specified) Social History Socioeconomic History ??? Marital status: Tobacco Use ??? Smoking status: Former Packs/day: 0.25 Types: Cigarettes Quit date: 06/10/2018 Years since quittin.7 ??? Smokeless tobacco: Never Vaping Use ??? Vaping Use: Never used Substance and Sexual Activity ??? Alcohol use: Never ??? Drug use: Never ??? Sexual activity: Yes Partners: Male Oncology History: Oncology History No history exists. Cancer Staging: Cancer Staging No matching staging information was found for the patient. Cumulative dose Purpose/Goal Comments Lifetime Dose Tracking No doses have been documented on this patient for the following tracked chemicals: Doxorubicin, Epirubicin, Idarubicin, Daunorubicin, Mitoxantrone, Bleomycin, Ifosfamide, Methotrexate, Cyclophosphamide, Cisplatin, Carboplatin Current Medications: Outpatient Encounter Medications as of 03/18/2023 Medication Sig Dispense Refill ??? Aimovig 140 MG/ML Solution Auto-injector ??? albuterol 108 (90 Base) MCG/ACT Aerosol Solution INHALE 1 PUFF BY MOUTH EVERY 4 TO 6 HOURS NEEDED FOR SHORTNESS OF BREATH ??? gabapentin (NEURONTIN) 600 MG Tablet Take 1,200 mg by mouth 2 times daily. ??? lamoTRIgine (LAMICTAL) 100 MG Tablet Take 350 mg by mouth 2 times daily. 30 Tab ??? LevETIRAcetam (KEPPRA) 1000 MG Tablet Take 2,000 mg by mouth in the morning and at bedtime. ??? primidone (MYSOLINE) 50 MG Tablet Take 250 mg by mouth in the morning and at bedtime. Indications: take two tablets at bedtime 120 Tablet ??? Rizatriptan Benzoate 5 MG Tablet Take 5 mg by mouth. No facility-administered encounter medications on file as of 03/18/2023. Labs: No visits with results within 7 Day(s) from this visit. Latest known visit with results is: Lab on 03/09/2023 Component Date Value Ref Range Status ??? HEREDITARY HEMOCHROMATOSIS 03/09/2023 COMMENT Final Comment: RESULTS: C.845G>A (P.[id number]) - NOT DETECTED C.187C>G (P.[id number]) - DETECTED, HETEROZYGOUS C.193A>T (P.[id number]) - NOT DETECTED NOT ASSOCIATED WITH INCREASED [...] FOR CLINICALLY SYMPTOMATIC INDIVIDUALS MAY INCLUDE THERAPEUTIC PHLEBOTO MY. LIVER TRANSPLANT MAY BE USED TO TREAT END STAGE LIVER FAILURE. FOR PREVENTIVE CARE, MONITORING FOR IRON OVERLOAD IS RECOMMENDED FOR PATIENTS WHO ARE HOMOZYGOUS FOR C.845G>A (P.[id number]) AND HAVE YET TO EXPERIENCE CLINICAL SYMPTOMS. COMMENTS: THE MOST COMMON HFE VARIANTS ASSOCIATED WITH HEREDITARY HEMOCHROMATOSIS ARE C.845G>A (P.[id number]), C.187C>G (P.[id number]), C.193A>T (P.[id number]). WHILE PATIENTS HOMOZYGOUS FOR C.845G>A (P.[id number]) ARE THE MOST LIKELY TO PRESENT CLINICAL SYMPTOMS, LESS THAN 10% DEVELOP CLINICALLY SIGNIFICANT IRON OVERLOAD WITH TISSUE AND ORGAN DAMAGE. GENETIC COUNSELING IS RECOMMENDED TO DISCUSS THE POTENTIAL CLINICAL IMPLICATIONS OF POSITIVE RESULTS, WELL RECOMMENDATIONS FOR TESTING FAMILY MEMBERS. GENETIC COORDINATORS ARE AVAILABLE FOR HEALTH CARE PROVIDERS TO DISCUSS RESULTS AT [phone] ([phone]). TEST DETAILS: THREE VARIANTS ANALYZED: C.845G>A ([id number]), COMMONLY REFERRED TO C282Y C.187C>G (P.[id number]), COMMONLY REFERR ED TO H63D C.193A>T (P.[id number]), COMMONLY REFERRED TO S65C METHODS/LIMITATIONS: DNA ANALYSIS [...] DEVELOPED AND ITS PERFORMANCE CHARACTERISTICS DETERMINED BY [facility]. IT HAS NOT BEEN CLEARED OR APPROVED BY THE [employer]OD AND DRUG ADMINISTRATION. REFERENCES: KEITH BR, CHARLIE PC, SILVERIO KV, SHAUNA LW, DUC ; [employer]IVER DISEAS[employer]. DIAGNOSIS AND MANAGEMENT OF HEMOCHROMATOS IS: 2011 PRACTICE GUIDELINE BY THE [employer] THE [employer]UDY OF LIVER DISEASES. HEPATOLOGY. 2010;54(1):328-43. DOI: 10.1002/HEP.59896. PMID: [id number]; PMCID: [id number]. MIRI G, LELIA P, AYANNA STRINGER, SAMMY H, AKBAR O, LIZANDRO S, CARLITOS I, CAROLINA M, CATHY S. [facility] PRACTICE GUIDELINES FOR THE MOLECULAR GENETIC DIAGNOSIS OF HEREDITARY HEMOCHROMATOSIS (HH). EUR J HUM ALEJANDRO. 2016 OCT;24(4):479-95. DOI: 10.1038/EJHG.2015.128. EPUB 2014JAN 24. PMID: [id number]; PMCID: [id number]. ??? REVIEWED [place], [place] [id number] 03/09/2023 COMMENT Final Comment: TECHNICAL COMPONENT PERFORMED AT [facility] RTP PROFESSIONAL COMPONENT PERFORMED BY: ASIF BEAL, PH.D., [facility] DIRECTOR, MOLECULAR GENETICS [address] [place] [id number] ??? IRON 03/09/2023 106 50 - 212 ug/dL Final ??? UIBC 03/09/2023 163 155 - 355 ug/dL Final ??? TIBC 03/09/2023 269 261 - 478 ug/dl Final ??? % Saturation 03/09/2023 39 20 - 50 % Final ??? Ferritin 03/09/2023 46 11 - 307 ng/mL Final ??? Glucose 03/09/2023 91 70 - 105 mg/dL Final ??? Blood Urea Nitrogen 03/09/2023 13 7 - 25 mg/dL Final ??? Creatinine 03/09/2023 0.8 0.6 - 1.2 mg/dL Final ??? Sodium 03/09/2023 140 136 - 145 mEq/L Final ??? Potassium 03/09/2023 4.6 3.5 - 5.1 mEq/L Final ??? Chloride 03/09/2023 105 98 - 107 mEq/L Final ??? Bicarbonate 03/09/2023 29 21 - 31 mEq/L Final ??? Total Bilirubin 03/09/2023 0.4 0.3 - 1.0 mg/dL Final ??? Alk. Phosphatase 03/09/2023 101 34 - 104 U/L Final ??? Aspartate Aminotransferase 03/09/2023 13 13 - 39 U/L Final ??? Alanine Aminotransferase 03/09/2023 10 7 - 52 U/L Final ??? Total Protein 03/09/2023 6.6 6.4 - 8.9 g/dL Final ??? Albumin 03/09/2023 4.0 3.5 - 5.7 g/dL Final ??? Calcium 03/09/2023 9.5 8.6 - 10.3 mg/dL Final ??? Anion Gap 03/09/2023 10.6 7.0 - 15.0 mEq/L Final ??? Globulin 03/09/2023 2.6 2.0 - 3.5 g/dL Final ? ? EGFR 03/09/2023 91 >60 ml/min/1.73m2 Final Comment: This eGFR is calculated using 2020 CKD-EPI Creatinine equation without race modifier based on the NKF-ASN task force recommendations ??? WBC 03/09/2023 5.0 4.0 - 10.0 10*3/uL Final ??? HGB 03/09/2023 13.3 11.2 - 15.7 g/dL Final ??? HCT 03/09/2023 39.9 34.1 - 44.9 % Final ??? PLT 03/09/2023 215 163 - 369 10*3/uL Final ??? MPV 03/09/2023 11.0 9.4 - 12.4 fL Final ??? RBC 03/09/2023 3.96 3.93 - 5.22 10*6/uL Final ??? MCV 03/09/2023 101 (H) 79 - 95 fL Final ??? MCH 03/09/2023 33.6 (H) 25.6 - 32.2 pg Final ??? MCHC 03/09/2023 33.3 32.2 - 36.5 g/dL Final ??? RDW 03/09/2023 12.9 11.6 - 14.4 % Final ??? Neutrophils % 03/09/2023 52.7 36.0 - 66.0 % Final ??? Lymphocytes % 03/09/2023 32.5 19.0 - 40.0 % Final ??? Monocytes % 03/09/2023 9.4 4.1 - 12.1 % Final ??? Eosinophils % 03/09/2023 4.2 (H) 0.0 - 3.5 % Final ??? Basophils % 03/09/2023 0.6 0.0 - 1.0 % Final ??? Absolute Neutrophils 03/09/2023 2.7 1.4 - 6.6 10*3/uL Final ??? Absolute Lymphocytes 03/09/2023 1.6 0.8 - 4.0 10*3/uL Final ??? Absolute Monocytes 03/09/2023 0.5 0.2 - 1.2 10*3/uL Final ??? Absolute Eosinophils 03/09/2023 0.2 0.0 - 0.4 10*3/uL Final ??? Absolute Basophils 03/09/2023 0.0 0.0 - 0.1 10*3/uL Final ??? WBC Estimate 03/09/2023 Normal Final ??? Platelet Estimate 03/09/2023 Normal Final ??? RBC Morphology 03/09/2023 Abnormal Final ??? Macrocytosis 03/09/2023 1+ Final documented in this encounter Plan of Treatment Scheduled Orders Name Type Priority Associated Diagnoses Orde r Schedule COMPLETE BLOOD COUNT (CBC) WITH DIFF Lab Routine Iron overload Expected: 06/18/2023, Expires: 07/18/2023 CMP (COMPREHENSIVE METABOLIC PANEL) Lab Routine Iron overload Expected: 06/18/2023, Expires: 07/18/2023 FERRITIN Lab Routine Iron overload Expected: 06/18/2023, Expires: 07/18/2023 IRON W/ IRON BINDING CAPACITY [place] Lab Routine Iron overload Expected: 06/18/2023, Expires: 07/18/2023 documented as of this encounter Visit Diagnoses Diagnosis Iron overload- Primary Other disorders of iron metabolism Monoallelic mutation of HFE gene documented in this encounter Additional Health Concerns Assessment Noted Time PHQ-9 Depression Total Score: 0 12/25/19 17 1:00 PM CDT documented as of this encounter Care Teams Sleep Manager Relationship Specialty Start Date End Date Davi Georges [address] [place] [address] PCP - General Family Medicine 02/05/23 Va Ferrell MD [address] [place] [address] Consulting Physician Obstetrics & Gynecology 06/04/16 Jacqui Rooney OD [address] [place], [place] [address] [address] Consulting Physician Optometry 10/15/16 03/26/23 Soto Vera MD [address] [place] [address] Consulting Physician Neurology 09/28/20 03/25/23 Inna Fair MD [address] [place] [address] Consulting Physician Oncology 02/05/23 Will Augustine MD Consulting Physician Neurology 04/22/16 documented as of this encounter
--- OUTSIDE RECORDS SUMMARY | 2024-07-16 12:47 | XMS_ITS | Encounter Summary ---
Author Organization [facility] Address [address] [place] [address] Care Team Providers Care Plane Tender Name Role Phone Unavailable Primary Care Provider Unavailabl e Encounter Details Date Type Department Care Team (Latest Contact Info) Description 05/09/2014 10:40 AM CDT - 05/09/2014 11:59 PM CDT Hospital Encounter [facility] - Laboratory [address] [place] [address] [place] [address] [facility] [address] [place] [address] Discharge Disposition: Home or Self [...] Priority Date/Time Associated Diagnosis Comments LACOSAMIDE Routine 05/09/2014 11:10 AM CDT Unspecified epilepsy without mention of intractable epilepsy (HCC) LEVETIRACETAM LEVEL Routine 05/09/2014 1 1:10 AM CDT Unspecified epilepsy without mention of intractable epilepsy (HCC) LAMOTRIGINE LEVEL Routine 05/09/2014 11: 10 AM CDT Unspecified epilepsy without mention of intractable epilepsy (HCC) GABAPENTIN LEVEL Routine 05/09/2014 11:1 0 AM CDT Unspecified epilepsy without mention of intractable epilepsy (HCC) CBC W AUTO DIFFERENTIAL Routine 05/09/2014 11:10 AM CDT Unspecified epilepsy without mention of intractable epilepsy (HCC) COMPREHENSIVE METABOLIC PANEL Routine 05/09/2014 11:10 AM CDT Unspecified epilepsy without mention of intractable epilepsy (HCC) documented in this encounter Results * LEVETIRACETAM LEVEL (05/09/2014 11:10 AM CDT) Levetiracetam 34 12 - 46 ug/mL 05/10/2014 2:13 PM CDT [employer] ([facility]) Comment: INTERPRETIVE INFORMATION: Keppra (Levetiracetam) Therapeutic Range: ??12-46 ug/mL ?Toxic: ??Not well Established Pharmacokinetics of levetiracetam are affected by renal function. Adverse effects may include somnolence, weakness, headache and vomiting. Blood specimen (specimen) BLOOD SPECIMEN / Unknown Lab Venipuncture / Unknown 05/09/2014 11:10 AM CDT 05/09/2014 11:34 AM CDT Ezequiel Ray MD LAB - THERAPEUTIC DR OSUNA MONITORING ORDERABLES [employer] ([facility]) [address] * (ABNORMAL) LAMOTRIGINE LEVEL (05/09/2014 11:10 AM CDT) Pathologist [facility] Lamotrigine <0.9(L) 2.5 - 15.0 ug/mL 05/10/2014 2:13 PM CDT [employer] ([facility]) Comment: INTERPRETIVE INFORMATION: ??Lamotrigine Therapeutic Range: ??2.5-15.0 ug/mL ?Toxic: ??Not well established Pharmacokinetics varies widely, particularly with co-medications and/or compromised renal function. ??Adverse effects may include dizziness, somnolence, nausea and vomiting. Blood specimen (specimen) BLOOD SPECIMEN / Unknown Lab Venipuncture / Unknown 05/09/2014 11:10 AM CDT 05/09/2014 11:34 AM CDT Ezequiel Ray MD LAB - THERAPEUTIC DR ENRRIQUE MONITORING ORDERABLES Performing Organization Address City/[facility]/ZIP Co de Phone Number [facility] ([facility]) [address] * GABAPENTIN LEVEL (05/09/2014 11:10 AM CDT) Gabapentin 9.7 2.0 - 20.0 ug/mL 05/11/2014 10:55 PM CDT [facility] ([facility]) Comment: INTERPRETIVE INFORMATION: ??Gabapentin Therapeutic [...] - CHEMISTRY ORDE RABLES Performing Organization Address [facility] Co de Phone Number [facility] [employer] ([facility]) [address] * COMPREHENSIVE METABOLIC PANEL (05/09/2014 11:10 AM CDT) Glucose 78 74 - 106 mg/dL 05/09/2014 12:01 PM CDT [facility] Sodium 139 136 - 145 mmol/L 05/09/2014 12:01 PM CDT [facility] Potassium 4.2 3.5 - 5.1 mmol/L 05/09/2014 12:01 PM CDT [facility] Chloride 107 98 - 107 mmol/L 05/09/2014 12:01 PM CDT [facility] CO2 24 22 - 31 mmol/L 05/09/2014 12:01 PM CDT [facility] Calcium 8.9 8.5 - 10.1 mg/dL 05/09/2014 12:01 PM CDT [facility] Anion Gap 8 5 - 15 mmol/L 05/09/2014 12:01 PM CDT [facility] BUN 15 7 - 21 mg/dL 05/09/2014 12:01 PM CDT [facility] Creatinine 0.67 0.50 - 1.30 mg/dL 05/09/2014 12:01 PM CDT [facility] eGFR by MDRD >60 >60 mL/min/1.7 3m2 05/09/2014 12:01 PM CDT [facility] eGFR by MDRD >60 >60 mL/min/1.7 3m2 05/09/2014 12:01 PM CDT [facility] Alkaline Phosphatase 71 38 - 126 U/L 05/09/2014 12:01 PM CDT [facility] ALT 17 12 - 78 U/L 05/09/2014 12:01 PM CDT [facility] AST 11 5 - 40 U/L 05/09/2014 12:01 PM CDT [facility] Protein Total 7.2 6.4 - 8.2 gm/dL 05/09/2014 12:01 PM CDT [facility] Albumin 3.7 3.4 - 5.0 gm/dL 05/09/2014 12:01 PM CDT [facility] Bilirubin Total 0.4 0.2 - 1.0 mg/dL 05/09/2014 12:01 PM CDT [facility] Blood BLOOD SPECIMEN / Unknown Lab Venipuncture / Unknown 05/09/2014 11:10 AM CDT 05/09/2014 11:34 AM CDT Ezequiel Ray MD LAB - CHEMISTRY CALEB RODRIGES [facility] Organization Address City/State/[facility] Co de Phone Number [facility] [address] [place] [address] * CBC W AUTO DIFFERENTIAL (05/09/2014 11:10 AM CDT) WBC 5.2 4.4 - 10.7 x10^9/L 05/09/2014 11:41 AM CDT [facility] RBC 4.06 3.80 - 5.20 x10^12/L 05/09/2014 11:41 AM CDT [facility] Hemoglobin 13.3 12.0 - 15.6 gm/dL 05/09/2014 11:41 AM CDT [facility] Hematocrit 39.0 35.9 - 45.5 % [...] - 14.9 % 05/09/2014 11:41 AM CDT [facility] MPV 10.4 9.4 - 12.9 fl [...] - 0.08 x10^9/L 05/09/2014 11:41 AM CDT [facility] Immature Granulocytes Absolute 0.01 0.00 - 0.06 x10^9/L 05/09/2014 11:41 AM CDT [facility] Blood BLOOD SPECIMEN / Unknown Lab Venipuncture / Unknown 05/09/2014 11:10 AM CDT 05/09/2014 11:34 AM CDT Ezequiel Ray MD LAB - HEMATOLOGY ORD ERABLES Performing Organization Address City/[facility]/ZIP Co de Phone Number [facility] [address] [place] [address] * (ABNORMAL) LACOSAMIDE (05/09/2014 11:10 AM CDT) Lacosamide 15.5(H) 5.0 - 10.0 ug/mL 05/11/2014 11:26 PM CDT [facility] [employer] ([facility]) Comment: INTERPRETIVE INFORMATION: Lacosamide, Serum or Plasma Therapeutic Range: Not well established. Suggested range 5.0 - 10.0 ug/mL Dose-related range (values at doses of 200-600 mg/day): 2.5 - 18.0 ug/mL Toxic: Not well established. Adverse effects may include dizziness, fatigue, nausea, vomiting, blurred vision and tremor. Test developed and characteristics determined by [employer]. See Compliance Statement B: [email or web address] [email or web address] Blood specimen (specimen) BLOOD SPECIMEN / Unknown Lab Venipuncture / Unknown 05/09/2014 11:10 AM CDT 05/09/2014 11:34 AM CDT Ezequiel Ray MD LAB - CHEMISTRY ORDCindy RODRIGES [employer] ([facility]) [address] [place] [address], [facility] documented in this encounter Visit Diagnoses Diagnosis Unspecified epilepsy without mention of intractable epilepsy (HCC)- Primary Unspecified epilepsy without mention of intractable epilepsy documented in this encounter
--- OUTSIDE RECORDS SUMMARY | 2024-07-16 12:47 | XMS_ITS | Encounter Summary ---
Author Organization [facility] Address [address] [place] [address] Phone Care Team Providers Care Boat Outfitter Name Role Phone Va Ferrell MD Unavailable Jacqui Rooney OD Unavailable Soto Vera MD Unavailable Unavailable Reason for Visit * Reason Comments Medication Refill Encounter Details Date Type Department Care Team (Late st Contact Info) Description 05/19/2022 Refill [facility] - Primary Care - [place] [place] [address] Sg Richards MD [address] [place] [address] Medication Refill Social History Tobacco [...] encounter Miscellaneous Notes * Telephone Encounter - Sg Richards MD - 05/19/2022 11:53 AM CDT Patient appears to have transferred her care to gregoria Roper late last year. * Telephone Encounter - Deborah Hazel RN - 05/19/2022 9:58 AM CDT Medication failed the protocol, provider to review and approve the medication order if appropriate. Requested Prescriptions Pending Prescriptions Disp Refills pantoprazole (PROTONIX) 40 MG Tablet Delayed Response [Pharmacy Med Name: PANTOPRAZOLE 40MG TABLETS] 90 Tablet 0 Sig: TAKE 1 TABLET BY MOUTH DAILY Proton Pump Inhibitors Protocol Failed - 05/19/2022 8:52 AM Failed - Visit with relevant provider in past 12 months or upcoming 90 days Recent Visits No visits were found meeting these conditions. Showing recent visits within past 365 days and meeting all other requirements Future Appointments No visits were found meeting these conditions. Showing future appointments within next 90 days and meeting all other requirements Passed - No positive test in the past 12 months or most recent test was negative Passed - No active on record documented in this encounter Plan of Treatment Not on file documented as of this encounter Visit Diagnoses Not on filedocumented in this encounter Additional Health Concerns Assessment Noted Time PHQ-9 Depression Total Score: 0 12/25/19 17 1:00 PM CDT documented as of this encounter Care Teams Boat Outfitter Relationship Specialty Start Date End Date [place] Ferrell [place] [address] Consulting Physician Obstetrics & Gynecology 06/04/16 Jacqui Rooney OD [address] [place] [address] Consulting Physician Optometry 10/15/16 03/26/23 Soto Vera MD [address] [place] [address] Consulting Physician Neurology 09/28/20 03/25/23 Will Augustine MD Consulting Physician Neurology 04/22/16 documented as of this encounter
--- OUTSIDE RECORDS SUMMARY | 2024-07-16 12:47 | XMS_ITS | Encounter Summary ---
Author Organization [facility] Address [address] [facility] [place] [address] Care Team Providers Care Investment Officer Name Role Phone Unavailable Primary Care Provider Unavailabl e Encounter Details Date Type Department Care Team (Latest Contact Info) Description 01/25/2015 4:50 PM CDT - 01/25/2015 11:59 PM CDT Hospital Encounter [facility] - Laboratory [address] [place] [address] [place] [address] [facility] [address] [place] [address] Discharge Disposition: Home or Self [...] Priority Date/Time Associated Diagnosis Comments LACOSAMIDE Routine 01/25/2015 5:08 PM CDT Other, mixed, or unspecified nondependent drug abuse, unspecified (HCC) 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-related (focal) (partial) epilepsy and epileptic syndromes with complex partial seizures, with intractable epilepsy (HCC) LEVETIRACETAM LEVEL Routine 01/25/2015 5 :08 PM CDT Other, mixed, or unspecified nondependent drug abuse, unspecified (HCC) 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-related (focal) (partial) epilepsy and epileptic syndromes with complex partial seizures, with intractable epilepsy (HCC) LAMOTRIGINE LEVEL Routine 01/25/2015 5:0 8 PM CDT Other, mixed, or unspecified nondependent drug abuse, unspecified (HCC) 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-related (focal) (partial) epilepsy and epileptic syndromes with complex partial seizures, with intractable epilepsy (HCC) RPR Routine 01/25/2015 5:08 PM CDT Other, mixed, or unspecified nondependent drug abuse, unspecified (HCC) 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-related (focal) (partial) epilepsy and epileptic syndromes with complex partial seizures, with intractable epilepsy (HCC) TIMOTEO BLOOD SCREEN W/REFLEX TITER Routine 01/25/2015 5:08 PM CDT Other, mixed, or unspecified nondependent drug abuse, unspecified (HCC) 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-related (focal) (partial) epilepsy and epileptic syndromes with complex partial seizures, with intractable epilepsy (HCC) GABAPENTIN LEVEL Routine 01/25/2015 5:08 PM CDT Other, mixed, or unspecified nondependent drug abuse, unspecified (HCC) 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-related (focal) (partial) epilepsy and epileptic syndromes with complex partial seizures, with intractable epilepsy (HCC) ERYTHROCYTE SEDIMENTATION RATE Routine 01/25/2015 5:08 PM CDT Other, mixed, or unspecified nondependent drug abuse, unspecified (HCC) 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-related (focal) (partial) epilepsy and epileptic syndromes with complex partial seizures, with intractable epilepsy (HCC) URINE DRUG SCREEN IMMUNOASSAY Routine 01/25/2015 5:08 PM CDT Other, mixed, or unspecified nondependent drug abuse, unspecified (HCC) 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-related (focal) (partial) epilepsy and epileptic syndromes with complex partial seizures, with intractable epilepsy (HCC) FOLATE Routine 01/25/2015 5:08 PM CDT Other, mixed, or unspecified nondependent drug abuse, unspecified (HCC) 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-related (focal) (partial) epilepsy and epileptic syndromes with complex partial seizures, with intractable epilepsy (HCC) VITAMIN B12 Routine 01/25/2015 5:08 PM CDT Other, mixed, or unspecified nondependent drug abuse, unspecified (HCC) 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-related (focal) (partial) epilepsy and epileptic syndromes with complex partial seizures, with intractable epilepsy (HCC) TSH Routine 01/25/2015 5:08 PM CDT Other, mixed, or unspecified nondependent drug abuse, unspecified (HCC) 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-related (focal) (partial) epilepsy and epileptic syndromes with complex partial seizures, with intractable epilepsy (HCC) documented in this encounter Results * (ABNORMAL) DRUG SCREEN TOX URINE PANEL (01/25/2015 5:08 PM CDT) [facility] Amphetamines Screen Urine Not Detected Not Detected 01/25/2015 5:48 PM CDT [facility] Barbiturates Screen Urine Not Detected Not Detected 01/25/2015 5:48 PM CDT [facility] Benzodiazepines Screen Urine Not Detected Not Detected 01/25/2015 5:48 PM CDT [facility] Cannabinoids Screen Urine Not Detected Not Detected 01/25/2015 5:48 PM CDT [facility] Cocaine Screen Urine Not Detected Not Detected 01/25/2015 5:48 PM CDT [facility] Methadone Screen Urine Not Detected Not Detected 01/25/2015 5:48 PM CDT [facility] Opiate Screen Urine Detected(A) Not Detected 01/25/2015 5:48 PM CDT [facility] Phencyclidine Screen Urine Not Detected Not Detected 01/25/2015 5:48 PM CDT [facility] Urine URINE / Unknown Collection / Unknown 01/25/2015 5:08 PM CDT 01/25/2015 5:30 PM CDT [facility] - 01/25/2015 5:48 PM CDT This [...] MD LAB - URINE CHEMISTR Y ORDERABLES Performing Organization Address [facility] Co de Phone Number [facility] [address] [place] [address] * GABAPENTIN LEVEL (01/25/2015 5:08 PM CDT) Gabapentin 7.8 2.0 - 20.0 ug/mL 01/31/2015 8:40 AM CDT [employer] ([facility]) Comment: INTERPRETIVE INFORMATION: ??Gabapentin Therapeutic Range: [...] - CHEMISTRY ORDE RABLES Performing Organization Address City/[facility] Co de Phone Number [facility] [employer] ([facility]) [address] * (ABNORMAL) LACOSAMIDE (01/25/2015 5:08 PM CDT) Lacosamide 12.9(H) 5.0 - 10.0 ug/mL 01/29/2015 10:34 AM CDT [employer] ([facility]) Comment: INTERPRETIVE INFORMATION: Lacosamide, Serum or Plasma Therapeutic Range: Not well established. Suggested range 5.0 - 10.0 ug/mL Dose-related range (values at doses of 200-600 mg/day): 2.5 - 18.0 ug/mL Toxic: Not well established. Adverse effects may include dizziness, fatigue, nausea, vomiting, blurred vision and tremor. Test developed and characteristics determined by [employer]. See Compliance Statement B: [email or web address] Blood specimen (specimen) BLOOD SPECIMEN / Unknown Lab Venipuncture / Unknown 01/25/2015 5:08 PM CDT 01/25/2015 5:30 PM CDT Ezequiel Ray MD LAB - CHEMISTRY ORDE RABLES Performing Organization Address [facility]/State/ZIP Co de Phone Number [employer] ([facility]) [address] [place] [address] * (ABNORMAL) LAMOTRIGINE LEVEL (01/25/2015 5:08 PM CDT) Pathologist [facility] Lamotrigine <0.9(L) 2.5 - 15.0 ug/mL 01/27/2015 7:08 PM CDT [employer] ([facility]) Comment: INTERPRETIVE INFORMATION: ??Lamotrigine Therapeutic Range: [...] DR OSUNA MONITORING ORDERABLES Performing Organization Address [facility]/State/ZIP Co de Phone Number [employer] ([facility]) [address] [place] [address] * LEVETIRACETAM LEVEL (01/25/2015 5:08 PM CDT) Pathologist [facility] Levetiracetam 14 12 - 46 ug/mL 01/27/2015 7:08 PM CDT [facility] ([facility]) Comment: INTERPRETIVE INFORMATION: Keppra (Levetiracetam) Therapeutic [...] City/[facility]/ZIP Co de Phone Number [facility] ([facility]) [address] * SED RATE WESTERGREN (01/25/2015 5:08 PM CDT) Pathologist [facility] Erythrocyte Sedimentation Rate Westergren 6 0 - 20 mm/hr 01/25/2015 5:49 PM CDT [facility] Blood BLOOD SPECIMEN / Unknown Lab Venipuncture / Unknown 01/25/2015 5:08 PM CDT 01/25/2015 5:30 PM CDT Ezequiel Ray MD LAB - HEMATOLOGY ORD ERABLES Performing Organization Address City/[facility]/ZIP Co de Phone Number [facility] [address] [place] [id number] * TIMOTEO BLOOD SCREEN W/REFLEX TITER (01/25/2015 5:08 PM CDT) Pathologist [facility] TIMOTEO Negative Negative 01/26/2015 9:01 AM CDT [facility] Blood BLOOD SPECIMEN / Unknown Lab Venipuncture / Unknown 01/25/2015 5:08 PM CDT 01/25/2015 5:30 PM CDT Ezequiel Ray MD LAB - CHEMISTRY CALEB RODRIGES [facility] [address] [place] [address] * RPR (01/25/2015 5:08 PM CDT) [facility] RPR Non Reactive Non Reactive 01/26/2015 12:53 PM CDT [facility] Blood BLOOD SPECIMEN / Unknown Lab Venipuncture / Unknown 01/25/2015 5:08 PM CDT 01/25/2015 5:30 PM CDT Ezequiel Ray MD LAB - CHEMISTRY CALEB RODRIGES Performing Organization Address City/[facility]/ZIP Co de Phone Number [facility] [address] [place] [address] * TSH (01/25/2015 5:08 PM CDT) [facility] TSH 2.11 0.358 - 3.740 uIU/mL 01/25/2015 6:13 PM CDT [facility] Blood BLOOD SPECIMEN / Unknown Lab Venipuncture / Unknown 01/25/2015 5:08 PM CDT 01/25/2015 5:30 PM CDT Ezequiel Ray MD LAB - CHEMISTRY CALEB RODRIGES Performing Organization Address City/[facility]/ZIP Co de Phone Number [facility] [address] [place] [address] * FOLATE (01/25/2015 5:08 PM CDT) [facility] Folate 10.9 3.1 - 17.5 ng/mL 01/25/2015 7:18 PM CDT [facility] Blood BLOOD SPECIMEN / Unknown Lab Venipuncture / Unknown 01/25/2015 5:08 PM CDT 01/25/2015 5:30 PM CDT Ezequiel Ray MD LAB - CHEMISTRY CALEB RODRIGES [facility] [id number] [place] [address] * VITAMIN B12 (01/25/2015 5:08 PM CDT) Vitamin B12 350 211 - 911 pg/mL 01/25/2015 6:21 PM CDT [facility] Blood BLOOD SPECIMEN / Unknown Lab Venipuncture / Unknown 01/25/2015 5:08 PM CDT 01/25/2015 5:30 PM CDT Ezequiel Ray MD LAB - CHEMISTRY CALEB RODRIGES [facility] Organization Address City/State/ZIP Co de Phone Number [facility] [address] [place] [address] documented in this encounter Visit Diagnoses Diagnosis Other, mixed, or unspecified nondependent drug abuse, unspecified (HCC)- Primary Other, mixed, or unspecified nondependent drug abuse, unspecified 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
--- OUTSIDE RECORDS SUMMARY | 2024-07-16 12:47 | XMS_ITS | Encounter Summary ---
Author Organization [facility] Address [address] [place] [address] Phone Care Team Providers Care Associate Professor Of Law Name Role Phone Va Ferrell MD Unavailable Jacqui Rooney OD Unavailable Soto Vera MD Unavailable Unavailable Reason for Visit * Reason Comments Medication Refill Encounter Details Date Type Department Care Team (Late st Contact Info) Description 02/14/2022 Refill [facility] - Primary Care - [place] [address] [place] [address] Sg Richards MD [address] [place] [address] Medication Refill Social History Tobacco [...] Telephone Encounter - Sneha Coffey RN - 02/14/2022 12:05 PM CDT Medication approved and signed per standing order protocol. documented in this encounter Plan of Treatment Not on file documented as of this encounter Visit Diagnoses Not on filedocumented in this encounter Additional Health Concerns Assessment Noted Time PHQ-9 Depression Total Score: 0 12/25/19 17 1:00 PM CDT documented as of this encounter Care Teams Associate Professor Of Law Relationship Specialty Start Date End Date Va Ferrell MD [employer] [address] [address] Consulting Physician Obstetrics & Gynecology 06/04/16 Jacqui Rooney OD [address] [place] [address] Consulting Physician Optometry 10/15/16 03/26/23 Soto Vera MD [address] [place] [address] Consulting Physician Neurology 09/28/20 03/25/23 Will Augustine MD Consulting Physician Neurology 04/22/16 documented as of this encounter
--- OUTSIDE RECORDS SUMMARY | 2024-07-16 12:47 | XMS_ITS | Clinical Summary ---
Author Organization [facility] Address [address] [place] [address] Care Team Providers Care Surface Supply Breathing Apparatus Name Role Phone Unavailable Primary Care Provider Unavailabl e Source Comments [facility],non-owned Affiliates and Associated Physician Practices is amultiple site organization consisting of ambulatory clinics and hospital sitesin [place], [place], [place] and [place]. This disclosure is being madepursuant to the Care Everywhere program and may not contain all information available regarding this patient. Last updated 18.[facility] [employer] Social History Tobacco Use Types Packs/Day Years Used Date Smoking Tobacco: Never Assessed Sex and Gender Information Value Date Recorded Sex Assigned at Not on file Gender Identity Not on file Sexual Orientation Not on file Plan of Treatment Health Maintenance Due Date Last Done Comments COLOGUARD (AGES 45-75) - COL ON CA SCREENING 1975 COLON MONITORING 1975 COLONOSCOPY - COLON CA SCREENING 1975 CT COLONOGRAPHY - COLON CA SCREENING 1975 Colorectal Cancer Screening 1975 FIT - COLON CA SCREENING 1975 FLEX SIG - COLON CA SCREENING 1975 LIPID TESTING 1975 MAMMOGRAM 1975 PAP SMEAR 1975 HIV SCREENING 1990 HEPATITIS C SCREENING 03/29/1993 DTAP/TDAP/TD VACCINES (1 - Tdap) 1994 HEPATITIS B VACCINE (1 of 3 - 19+ 3-dose series) 1994 DEPRESSION SCREENING 07/20/2023 MEDICARE AWV ? CALENDAR YEAR 2023 COVID-19 VACCINE (2023-2 5 season) 2024 INFLUENZA VACCINE (#1) 2024 ZOSTER VACCINE (1 of 2) 2025 HIB VACCINE Aged Out No longer eligi ble based on patient's age to complete this topic HPV VACCINE Aged Out No longer eligi ble based on patient's age to complete this topic MENINGOCOCCAL VACCINE Aged Out No thomas jimy eligible based on patient's age to complete this topic PNEUMOCOCCAL VACCINE Aged Out No long er eligible based on patient's age to complete this topic [address] [place] [id number]
--- OUTSIDE RECORDS SUMMARY | 2024-07-16 12:47 | XMS_ITS | Referral Summary ---
Author Organization [facility] Address [address] [place] [address] Care Team Providers Care Ip Attorney Name Role Phone Unavailable Primary Care Provider Unavailabl e Source Comments [facility],non-owned Affiliates and Associated Physician Practices is amultiple site organization consisting of ambulatory clinics and hospital sitesin [place], [place], [place] and [place]. This disclosure is being madepursuant to the Care Everywhere program and may not contain all information available regarding this patient. Last updated 18.[employer] Social History Tobacco Use Types Packs/Day Years Used Date Smoking Tobacco: Never Assessed Sex and Gender Information Value Date Recorded Sex Assigned at Not on file Gender Identity Not on file Sexual Orientation Not on file Plan of Treatment Not on file [address] [place] [id number]
--- OUTSIDE RECORDS SUMMARY | 2024-07-16 12:47 | XMS_ITS | Encounter Summary ---
Author Organization [facility] Address [address] [place] [address] Phone Care Team Providers Care Die Storage Clerk Name Role Phone Sg Richards MD Primary Care Provider [phone] Va Ferrell MD Unavailable [phone] Jacqui Rooney OD Unavailable [phone] Soto Vera MD Unavailable Unavailable Reason for Visit * Reason Comments Medication Refill Encounter Details Date Type Department Care Team (Late st Contact Info) Description 02/18/2021 Refill [facility] - Primary Care - [place] [address] [place] [address] Sg Richards MD [address] [place] [address] Medication Refill Social History Tobacco [...] Telephone Encounter - Aminah Mondragon RN - 02/19/2021 8:16 AM CDT Medication approved and signed per standing order protocol. documented in this encounter Plan of Treatment Not on file documented as of this encounter Visit Diagnoses Not on filedocumented in this encounter Additional Health Concerns Assessment Noted Time PHQ-9 Depression Total Score: 0 12/25/19 17 1:00 PM CDT documented as of this encounter Care Teams Die Storage Clerk Relationship Specialty Start Date End Date Sg Richards MD [address] [place] [address] PCP - General Internal Medicine 03/28/15 08/12/21 Va Ferrell MD [address] [place] [address] Consulting Physician Obstetrics & Gynecology 06/04/16 Jacqui Rooney OD [address] [place] [address] Consulting Physician Optometry 10/15/16 03/26/23 Soto Vera MD [address] [place] [address] Consulting Physician Neurology 09/28/20 03/25/23 Will Augustine MD Consulting Physician Neurology 04/22/16 documented as of this encounter
--- OUTSIDE RECORDS SUMMARY | 2024-07-16 12:47 | XMS_ITS | Encounter Summary ---
Author Organization [facility] Address [address] [place] [address] Phone Care Team Providers Care Community Health Navigator Name Role Phone Va Ferrell MD Unavailable [phone] Jacqui Rooney OD Unavailable [phone] Soto Vera MD Unavailable Unavailable Davi Georges Primary Care Provider [phone] Inna Fair MD Unavailable Reason for Visit * Reason Comments New Patient * Consult, Test & Initiate Treatment (Routine) - Closed Specialty Diagnoses / Procedures Referred By Suman perdue Referred To Contact Oncology Diagnoses Disorder of iron metabolism, unspecified Davi Georges [address] [place] [address] Phone: tel: fax: Inna Fair MD [address] [place] [address] Phone: tel: fax: Referral ID Status Reason Start Date Expiration Date Visits Re quested Visits Authorized [id number] Closed 1 1 Encounter Details Date Type Department Care Team ([facility] Contact Info) Description 03/09/2023 9:00 AM CDT [facility] [address] [address] Inna Fair MD [address] [place] [address] Iron overload (Primary Dx) Social History Tobacco Use Types Packs/Day Years [...] Sign Reading Time Taken Comments Blood Pressure 126/84 03/09/2023 8:56 AM CDT Pulse 71 03/09/2023 8:56 AM CDT Temperature 36.2 ??C (97.1 ??F) 03/09/2023 8:56 AM CD T Respiratory Rate 18 03/09/2023 8:56 AM CDT Oxygen Saturation 95% 03/09/2023 8:56 AM CDT Inhaled Oxygen Concentration - - Weight 96 kg (211 lb 9.6 oz) 03/09/2023 8:56 AM CDT Height 163.2 cm (5' 4.25 ) 03/09/2023 8:56 AM CD T Body Mass Index 36.04 03/09/2023 8:56 AM CDT documented in this encounter [...] Progress Notes * Inna Fair MD - 03/09/2023 9:00 AM CDT Images from the original note were not included. Patient: Kayla Avila Age: 47 y.o. : 1975 Encounter Dept: [facility] Encounter Date: 03/09/2023 Care Team: Current Providers PCP: Davi Georges Care Team Provider: Will Augustine MD Care Team Provider: Va Ferrell MD Care Team Provider: Jacqui Rooney OD Care Team Provider: Soto Vera MD Care Team Provider: Inna Fair MD Encounter Provider: Inna Fair MD Referring Provider: Davi Georges Consulting Physician: Inna Fair MD HISTORY OF PRESENT ILLNESS: This is a 47-year-old female with no [...] any multivitamin. No herbal supplements. She does reporta family history of hemochromatosis on her paternal side with her cousins and aunt having hemochroma tosis and thy get regular phlebotomies. Denies chest pain. She gets short of breath and is going tose her PCP tomorrow for her shortness of breath. No GI or symptoms. No back pain, joint pain. Noskin bronzing. No fatigue. DIAGNOSIS: Iron overload. PAST TREATMENT: CURRENT TREATMENT: TREATMENT GUIDELINES: Consistent with NCCN guidelines. PROGNOSIS: EXPECTED RESPONSE TO TREATMENT: EXPECTED QUALITY OF LIFE DURING TREATMENT: ECOG: PAIN: PLAN FOR PAIN: CODE STATUS: ASSESSMENT: Iron overload. PLAN: 1. Concerning her iron overload I will check repeat iron studies today including ferritin and iron panel. 2. I will also check an HFE panel due to family history of hemochromatosis on her paternal side. 3. Return to clinic next week to go over workup. TIME SPENT: REVIEW OF SYSTEMS: A 12-point [...] lab results shown below reviewed. Inna Fair MD/trudyt Vitals: Vitals: 03/09/23 0856 BP: 126/84 BP Location: Left Arm BP Position: Sitting BP Cuff Size: Regular Pulse: 71 Resp: 18 Temp: 97.1 ??F (36.2 ??C) TempSrc: Temporal SpO2: 95% Weight: 211 lb 9.6 oz (96 kg) Height: 5' 4.25 (1.632 m) Body surface area is 2.09 meters squared. Body mass index is 36.04 kg/m??. Pain Score: 0 - No pain [...] Current Medications: Outpatient Encounter Medications as of 03/09/2023 Medication Sig Dispense Refill ??? Aimovig 140 MG/ML Solution Auto-injector ??? [DISCONTINUED] diclofenac (VOLTAREN) 75 MG Tablet Delayed Response take 1 tablet by oral route 2 times every day (Patient not taking: Reported on 04/25/2021) ??? [DISCONTINUED] Erenumab-aooe 70 MG/ML Solution Auto-injector 70 mg by Subcutaneous route. ??? [DISCONTINUED] Eslicarbazepine Acetate 800 MG Tablet Take by mouth. (Patient not taking: Reported on 04/25/2021) ??? gabapentin (NEURONTIN) 600 MG Tablet Take 1,200 mg by mouth 2 times daily. ??? [DISCONTINUED] HYDROcodone-acetaminophen (NORCO) 5-325 MG Tablet TK 1 T PO Q 6 H PRN ??? lamoTRIgine (LAMICTAL) 100 MG Tablet Take 350 mg by mouth 2 times daily. 30 Tab ??? [DISCONTINUED] lamoTRIgine (LaMICtal) 100 MG Tablet Take 400 mg by mouth. ??? LevETIRAcetam (KEPPRA) 1000 MG Tablet Take 2,000 mg by mouth in the morning and at bedtime. ??? [DISCONTINUED] Levetiracetam 1000 MG Tablet take 2 tablet by oral route every 12 hours ??? [DISCONTINUED] pantoprazole (PROTONIX) 40 MG Tablet Delayed Response TAKE 1 TABLET BY MOUTH DAILY 90 Tablet 0 ??? primidone (MYSOLINE) 50 MG Tablet Take 250 mg by mouth in the morning and at bedtime. Indications: take two tablets at bedtime 120 Tablet ??? Rizatriptan Benzoate 5 MG Tablet Take 5 mg by mouth. ??? [DISCONTINUED] traZODone (DESYREL) 100 MG Tablet 1 No facility-administered encounter medications on file as of 03/09/2023. Labs: No visits with results within 7 Day(s) from this visit. Latest known visit with results is: Office Visit on 04/25/2021 Component Date Value Ref Range Status ??? POC STREP SCRN 04/25/2021 Presumptive negative Final ??? POC STREP SCREEN CONTROL 04/25/2021 Simulation Tech Pass Final ??? SARSCOV2 04/25/2021 NOT DETECTED (Reference Range for this test is Not Detected) Final This test was performed by a RT-PCR method. ??? CULTURE RESULTS 04/25/2021 NO STREP PYOGENES (GROUP A BETA HEMOLYTIC STREP) ISOLATED AFTER 2 DAYS Final documented in this encounter Plan of Treatment Not on file documented as of this encounter Results * HERED.HEMOCHROMATOSIS, [place] [id number] (03/09/2023 9:31 AM CDT) [facility] HEREDITARY HEMOCHROMATOSIS COMMENT [facility] Comment: RESULTS: C.845G>A ([id number]) - NOT DETECTED C.187C>G (P.[id number]) - DETECTED, HETEROZYGOUS C.193A>T (P.[id number]) - NOT DETECTED NOT ASSOCIATED WITH INCREASED [...] FOR PATIENTS WHO ARE HOMOZYGOUS FOR C.845G>A (P.[id number]) AND HAVE YET TO EXPERIENCE CLINICAL SYMPTOMS. COMMENTS: THE MOST COMMON HFE VARIANTS ASSOCIATED WITH HEREDITARY HEMOCHROMATOSIS ARE C.845G>A (P.[id number]), C.187C>G (P.[id number]), C.193A>T (P.[id number]). WHILE PATIENTS HOMOZYGOUS FOR C.845G>A (P.[id number]) ARE THE MOST LIKELY TO PRESENT CLINICAL SYMPTOMS, LESS THAN 10% DEVELOP CLINICALLY SIGNIFICANT IRON OVERLOAD WITH TISSUE AND ORGAN DAMAGE. GENETIC COUNSELING IS RECOMMENDED TO DISCUSS THE POTENTIAL CLINICAL IMPLICATIONS OF POSITIVE RESULTS, WELL RECOMMENDATIONS FOR TESTING FAMILY MEMBERS. GENETIC COORDINATORS ARE AVAILABLE FOR HEALTH CARE PROVIDERS TO DISCUSS RESULTS AT [phone] ([phone]). TEST DETAILS: THREE VARIANTS ANALYZED: C.845G>A (P.[id number]), COMMONLY REFERRED TO C282Y C.187C>G (P.[id number]), COMMONLY REFERRED TO H63D C.193A>T (P.[id number]), COMMONLY REFERRED TO S65C METHODS/LIMITATIONS: DNA ANALYSIS [...] DEVELOPED AND ITS PERFORMANCE CHARACTERISTICS DETERMINED BY [facility]. IT HAS NOT BEEN CLEARED OR APPROVED BY THE FOOD AND DRUG ADMINISTRATION. REFERENCES: KEITH BR, CHARLIE PC, SILVERIO KV, SHAUNA LW, DUC ; [employer]. DIAGNOSIS AND MANAGEMENT OF HEMOCHROMATOSIS: 2011 PRACTICE GUIDELINE BY THE [employer]. HEPATOLOGY. 2010;54(1):328-43. DOI: 10.1002/HEP.05337. PMID: 68851302; PMCID: [id number]. MIRI G, LELIA P, AYANNA DW, SAMMY H, AKBAR O, LIZANDRO S, CARLITOS I, CAROLINA M, CATHY S. [facility] PRACTICE GUIDELINES FOR THE MOLECULAR GENETIC DIAGNOSIS OF HEREDITARY HEMOCHROMATOSIS (HH). EUR J HUM ALEJANDRO. 2016 OCT;24(4):479-95. DOI: 10.1038/EJHG.2015.128. EPUB 2014JAN 24. PMID: [id number]; PMCID: [id number]. REVIEWED BY, [place] [address]807 COMMENT [facility] Comment: TECHNICAL COMPONENT PERFORMED AT [facility] PROFESSIONAL COMPONENT PERFORMED BY: ASIF BEAL, PH.D., [facility] DIRECTOR, MOLECULAR GENETICS [address] [place] [address] 03/09/2023 9:[address] [facility] - 03/13/2023 11:09 AM CDT TESTING PERFORMED AT: [TG] [facility], [address], [place], [address], PHONE: [phone], EELER: [facility] Release to patient->Immediate Inna Fair MD LAB SEND OUTS Final Result Performing Organization Address City/[facility]/ZIP Co de Phone Number [facility] [address] [place] [address], [place] [phone] * IRON W/ IRON BINDING [place]ACITY [place] (03/09/2023 9:31 AM CDT) IRON 106 50 - 212 ug/dL [facility] UIBC 163 155 - 355 ug/dL [facility] TIBC 269 261 - 478 ug/dl [facility] % Saturation 39 20 - 50 % [facility] 03/09/2023 9:31 AM CDT [facility] - 03/09/2023 10:40 AM CDT Release to patient->Immediate Inna Fair MD LAB SEND OUTS Final Result Performing Organization Address [facility]/ZIP Co de Phone Number [facility] [place] [address] [place] [address], [place] [phone] * FERRITIN (03/09/2023 9:31 AM CDT) Ferritin 46 11 - 307 ng/mL [facility] Blood 03/09/2023 9:31 AM CDT [facility] - 03/09/2023 2:53 PM CDT Release to patient->Immediate Inna Fair MD CHEMISTRY ORDERABLES Final Resul t Performing Organization Address City/[facility]/ZIP Co de Phone Number [facility] [place] [address] [place] [address], [place] [phone] * CMP (COMPREHENSIVE METABOLIC PANEL) (03/09/2023 9:31 AM CDT) Glucose 91 70 - 105 mg/dL [facility] Blood Urea Nitrogen 13 7 - 25 mg/dL [facility] Creatinine 0.8 0.6 - 1.2 mg/dL [facility] Sodium 140 136 - 145 mEq/L [facility] Potassium 4.6 3.5 - 5.1 mEq/L [facility] Chloride 105 98 - 107 mEq/L [facility] Bicarbonate 29 21 - 31 mEq/L [facility] Total Bilirubin 0.4 0.3 - 1.0 mg/dL [facility] Alk. Phosphatase 101 34 - 104 U/L [facility] Aspartate Aminotransferase 13 13 - 39 U/L [facility] Alanine Aminotransferase 10 7 - 52 U/L [facility] Total Protein 6.6 6.4 - 8.9 g/dL [facility] Albumin 4.0 3.5 - 5.7 g/dL [facility] Calcium 9.5 8.6 - 10.3 mg/dL [facility] Anion Gap 10.6 7.0 - 15.0 mEq/L [facility] Globulin 2.6 2.0 - 3.5 g/dL [facility] EGFR 91 >60 ml/min/1. 73m2 [facility] Comment: This eGFR is calculated using 2020 CKD-EPI Creatinine equation without race modifier based on the NKF-ASN task force recommendations Blood 03/09/2023 9:31 AM CDT Narrative [facility] - 03/09/2023 10:40 AM CDT Release to patient->Immediate IS THE PATIENT REQUIRED TO BE FASTING FOR 8 HOURS?->No us Inna Fair MD CHEMISTRY ORDERABLES Final Resul t [facility] [place] [address], documented in this encounter Visit Diagnoses Diagnosis Iron overload- Primary Other disorders of iron metabolism Iron overload Other disorders of iron metabolism documented in this encounter Additional Health Concerns Assessment Noted Time PHQ-9 Depression Total Score: 0 12/25/19 17 1:00 PM CDT documented as of this encounter Care Teams Community Health Navigator Relationship Specialty Start Date End Date Davi Georges [address] [place] [address] PCP - General Family Medicine 02/05/23 Va Ferrell MD [address] [place] [address] Consulting Physician Obstetrics & Gynecology 06/04/16 Jacqui Rooney OD [address] [place] [address] Consulting Physician Optometry 10/15/16 03/26/23 Soto Vera MD [address] [place] [address] Consulting Physician Neurology 09/28/20 03/25/23 Inna Fair MD [address] [place] [address] Consulting Physician Oncology 02/05/23 Will Augustine MD Consulting Physician Neurology 04/22/16 documented as of this encounter
--- OUTSIDE RECORDS SUMMARY | 2024-07-16 12:47 | XMS_ITS | Encounter Summary ---
Author Organization [facility] Address [address] [place] [address] Phone Care Team Providers Care Ehr Trainer Name Role Phone Sg Richards MD Primary Care Provider [phone] Va Ferrell MD Unavailable Jacqui Rooney OD Unavailable [phone] Soto Vera MD Unavailable Unavailable Reason for Visit * Reason Onset Date Comments Results 04/29/2021 Labs Encounter Details Date Type Department Care Team (Late Contact Info) Description 04/29/2021 Telephone [facility] Primary Care - [place] [address] [place] [address] Nav Bello PAC Results (Labs) Social History Tobacco Use Types Packs/Day Years [...] encounter Miscellaneous Notes * Telephone Encounter - Eleanor Lebron CMA - 04/29/2021 12:40 PM CDT Kayla Avila notified, verbalized understanding. * Telephone Encounter - Nav Bello PAC - 04/29/2021 12:21 PM CDT Would recommend OTC chloraseptic spray, NSAIDS, warm tea w/ honey. * Telephone Encounter - Eleanor Lebron CMA - 04/29/2021 11:20 AM CDT Kayla Avila notified, verbalized understanding. States she is still having a sore throat, asking if there is anything provider can give to her. Please advise. * Telephone Encounter - Eleanor Lebron CMA - 04/29/2021 11:20 AM CDT ----- Message from DG Dudley sent at 04/29/2021 7:49 AM CDT ----- Please let patient to let them know [...] documented as of this encounter Care Teams Ehr Trainer Relationship Specialty Start Date End Date Sg Richards MD [address] [place] [address] PCP - General Internal Medicine 03/28/15 08/12/21 Va Ferrell MD [address] [address] Consulting Physician Obstetrics & Gynecology 06/04/16 Jacqui Rooney OD [address] [place] [address] Consulting Physician Optometry 10/15/16 03/26/23 Soto Vera MD [address] [place] [address] Consulting Physician Neurology 09/28/20 03/25/23 Will Augustine MD Consulting Physician Neurology 04/22/16 documented as of this encounter
--- OUTSIDE RECORDS SUMMARY | 2024-07-16 12:48 | XMS_ITS | Encounter Summary ---
Author Organization [facility] Address [address] [place] [address] Phone Care Team Providers Care Office Equipment Technician Name Role Phone Sg Richards MD Primary Care Provider [phone] Va Ferrell MD Unavailable Jacqui Rooney OD Unavailable Reason for Visit * Reason Onset Date Comments Medication Refill 02/21/2020 Encounter Details Date Type Department Care Team (Late st Contact Info) Description 02/21/2020 Refill [facility] [address] [place] [address] Sg Richards MD [address], [place] [id number] Medication Refill Social History Tobacco Use Types [...] Telephone Encounter - Sg Richards MD - 02/24/2020 8:33 AM CDT Refill request approved. * Telephone Encounter - Shavon Patrick RN - 02/23/2020 7:58 PM CDT Medication failed the protocol, provider to review and approve the medication order Requested Prescriptions Pending Prescriptions Disp Refills pantoprazole (PROTONIX) 40 MG Tablet Delayed Response 90 Tab 1 Sig: Take 1 Tab by mouth daily. Gastroenterology: Antiulcer - Proton Pump Inhibitors Passed - 02/23/2020 7:58 PM Passed - Valid encounter within last 12 months Past Office Visits Recent Outpatient Visits 1 month ago Anxiety and depression [facility] - Sg Hernandez MD 5 months ago Epidermoid cyst [facility] - Sg Hernandez MD 6 months ago Body aches [facility] - Nav De León PAC 7 months ago Seizure disorder (HCC) [facility] - Sg Hernandez MD 1 year ago Mass in chest [facility] - Sg Heranndez MD Upcoming Appointments Future Appointments In 4 months Sg Richards MD [facility] - [facility] [employer] 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 Showing future appointments within next 90 days with a meds authorizing provider and meeting all other requirements * Telephone Encounter - Andreea Kelley, RN - 02/21/2020 10:10 AM CDT Received: [x]FAX []TELEPHONE CALL []MYCHART from: [x]PHARMACY []PATIENT/OTHER regarding medication management. Medication name and dose: pantoprazole 40mg tabs Quantity: (30 day, 90 day, 3 monthly scripts) 90 days Pharmacy preference for this medication: Sherri Poon Outcome: []Medication pended, routed to surescripts []Medication refused []Informed caller of refills at pharmacy []Additional message to medication management RN []Verbal authorization for written order to pharmacy []Additional message to provider []Verified medication with pharmacy SUNNY Meehan RN Nurse Triage documented in this encounter Plan of Treatment Not on file documented as of this encounter Visit Diagnoses Not on filedocumented in this encounter Additional Health Concerns Assessment Noted Time PHQ-9 Depression Total Score: 0 12/25/19 17 1:00 PM CDT documented as of this encounter Care Teams Office Equipment Technician Relationship Specialty Start Date End Date Sg Richards MD [address] [place] [address] PCP - General Internal Medicine 03/28/15 08/12/21 Va Ferrell MD [address] [place] [address] Consulting Physician Obstetrics & Gynecology 06/04/16 Jacqui Rooney OD [address] [place] [address] Consulting Physician Optometry 10/15/16 03/26/23 Will Augustine MD Consulting Physician Neurology 04/22/16 documented as of this encounter
--- OUTSIDE RECORDS SUMMARY | 2024-07-16 12:48 | XMS_ITS | Encounter Summary ---
Author Organization [facility] Address [address] [place] [address] Phone Care Team Providers Care Teacher Emotionally Impaired Name Role Phone Sg Richards MD Primary Care Provider [phone] Va Ferrell MD Unavailable Jacqui Rooney OD Unavailable Soto Vera MD Unavailable Unavailable Reason for Visit * Reason Comments Seizure follow up Encounter Details Date Type Department Care Team (Late st Contact Info) Description 09/28/2020 10:45 AM STEAMFITTER Office Visit [facility] - Primary Care - [place] [address] [place] [id number] Sg Richards MD [address] [place] [address] Seizure disorder (HCC) (Primary Dx); Arthritis; Gastroesophageal reflux disease without esophagitis; Intractable chronic migraine without aura and without status migrainosus Discharge Disposition: Discharged to home or Selfcare [...] have Coronavirus / COVID-19? No / Unsure 09/28/2020 10:34 AM STEAMFITTER documented as of this encounter Last Filed Vital Signs Vital Sign Reading Time Taken Comments Blood Pressure 110/70 09/28/2020 10:49 AM STEAMFITTER Pulse 72 09/28/2020 10:49 AM STEAMFITTER Temperature 36.8 ??C (98.2 ??F) 09/28/2020 10:[address] Respiratory Rate 20 09/28/2020 10:49 AM STEAMFITTER Oxygen Saturation 97% 09/28/2020 10:49 AM STEAMFITTER Inhaled Oxygen Concentration - - Weight - - Height 165.1 cm (5' 5 ) 09/28/2020 10:49 AM STEAMFITTER Body Mass Index - - documented in this encounter Progress Notes * Lissett Reid, Orlin - 09/28/2020 10:45 AM CST Kayla Ellis Austin, 45 y.o., female is here for Seizure (follow up) Medication Refills: Patient reports/denies need for medication refills. Orders Pended: no Requested Prescriptions No prescriptions requested or ordered in this encounter Home Medications Medication Sig Start Date End Date Taking? Authorizing Provider diclofenac (VOLTAREN) 75 MG Tablet Delayed Response take 1 tablet by oral route 2 times every day 02/14/15 ProviderDany MD Eslicarbazepine Acetate 800 MG Tablet Take by mouth. Yes ProviderDany MD gabapentin (NEURONTIN) 600 MG Tablet 4 times daily. Yes ProviderDany MD HYDROcodone-acetaminophen (NORCO) 5-325 MG Tablet TK [...] Response TAKE 1 TABLET BY MOUTH DAILY 08/27/20 Yes Sg Richards MD primidone (MYSOLINE) 50 MG Tablet Take 75 mg by mouth nightly. Yes Provider, MD Dany traZODone (DESYREL) 100 MG Tablet 05/26/16 Yes Provider, MD Dany There are no discontinued medications. I have reviewed the home medication list with the patient and have reconciled discrepancies. The list is accurate to the best of my knowledge. Smoking Status: Social History Tobacco Use ??? Smoking status: Former Smoker Packs/day: 0.25 Types: Cigarettes Quit date: 06/10/2018 Years since quittin.3 ??? Smokeless tobacco: Never Used Substance Use Topics ??? Alcohol use: No Alcohol/week: 0.0 oz ??? Drug use: No Smoking Cessation Counseling Given: n/a Health Care Maintenance: Health Maintenance Due Topic Date Due ??? SARS-COV-2 Immunization (1) Never done ??? Pap Smear Never done ??? Discussion re Starting/Frequency of Mammograms Never done ??? Influenza Immunization (1) Never done Orders Pended: n/a The following BPA's have been addressed with the patient today: Flu * Sg Richards MD - 09/28/2020 10:45 AM CST Subjective: HPI Follow-up for seizure disorder, arthritis, GERD and migraines. She is seeing 2 neurologists at [facility] for her migraines and seizure disorder, respectively. Medication is still being increased for her seizures because they are not adequately controlled. Past medical history, social history, family history and medications have been reviewed. Review of Systems Constitutional: Negative. HENT: Negative. Eyes: Negative. Respiratory: Negative. Cardiovascular: Negative. Gastrointestinal: Negative. Endocrine: Negative. Genitourinary: Negative. Musculoskeletal: Negative. Skin: Negative. Allergic/Immunologic: Negative. Neurological: Positive for seizures and headaches. Hematological: Negative. Psychiatric/Behavioral: Negative. Objective: Physical Exam Exam conducted with a instructor physical present (Spouse). Constitutional: Appearance: She is well-developed. HENT: Head: Normocephalic. Right Ear: External ear normal. Left Ear: External ear normal. Nose: Nose normal. Eyes: General: Lids are normal. Conjunctiva/sclera: Conjunctivae normal. Pupils: Pupils are equal, round, and reactive to light. Neck: Thyroid: No thyroid mass or thyromegaly. Trachea: Trachea normal. Cardiovascular: Rate and Rhythm: Normal rate and regular rhythm. Pulses: Normal pulses. Heart sounds: Normal heart sounds. No murmur. No friction rub. No gallop. Pulmonary: Effort: Pulmonary effort is normal. No respiratory distress. Breath sounds: Normal breath sounds. No wheezing or rales. Chest: Chest wall: No tenderness. Abdominal: General: Bowel sounds are normal. There is no distension. Palpations: Abdomen is soft. There is no mass. Tenderness: There is no abdominal tenderness. There is no guarding or rebound. Hernia: No hernia is present. Musculoskeletal: General: No tenderness. Normal range of motion. Cervical back: Normal range of motion and neck supple. Lymphadenopathy: Cervical: No cervical adenopathy. Skin: General: Skin is warm and dry. Coloration: Skin is not pale. Findings: No erythema or rash. Neurological: Mental Status: She is alert and oriented to person, place, and time. Coordination: Coordination normal. Gait: Gait normal. Deep Tendon Reflexes: Reflexes are normal and symmetric. Psychiatric: Mood and Affect: Mood is anxious (mild). Speech: Speech normal. Behavior: Behavior normal. Thought Content: Thought content normal. Judgment: Judgment normal. Assessment and Plan See Diagnoses, Orders, Follow-up, and Instructions Problem List Items Addressed This Visit Nervous Seizure disorder (HCC) - Primary Relevant Orders CMP (COMPREHENSIVE METABOLIC PANEL) COMPLETE BLOOD COUNT (CBC) WITH DIFF Musculoskeletal Arthritis Relevant Orders CMP (COMPREHENSIVE METABOLIC PANEL) COMPLETE BLOOD COUNT (CBC) WITH DIFF Gastrointestinal Gastroesophageal reflux disease Other Intractable chronic migraine without aura and without status migrainosus Check CMP and CBC. Follow-up in 1 year with annual fasting exam. I have seen and examined the patient on today's date. Documentation for this visit was completed using the assistance of a template. Everything documented in this visit was personally performed todaywith the necessary additions, deletions and changes. documented in this encounter Plan of Treatment Not on file documented as of this encounter Results * (ABNORMAL) CMP (COMPREHENSIVE METABOLIC PANEL) (09/28/2020 11:20 AM [facility]) SODIUM 134(L) 136 - 144 mmol/L 09/28/2020 4:[address] [facility] POTASSIUM 4.2 3.5 - 5.1 mmol/L 09/28/2020 4:[address] [facility] CHLORIDE 99(L) 100 - 110 mmol/L 09/28/2020 4:[address] [facility] CO2, VENOUS 25 22 - 32 mmol/L 09/28/2020 4:[address] [facility] ANION GAP 14.2 8.0 - 20.0 mmol/L 09/28/2020 4:[address] [facility] GLUCOSE 83 70 - 99 mg/dL 09/28/2020 4:[address] [facility] BUN 15 6 - 20 mg/dL 09/28/2020 4:[address] [facility] CREATININE, BLOOD 0.83 0.60 - 1.10 mg/dL 09/28/2020 4:[address] [facility] BUN/CREATININE RATIO 18 12 - 20 ratio 09/28/2020 4:[address] [facility] TOTAL PROTEIN 7.9 6.0 - 8.3 g/dL 09/28/2020 4:[address] [facility] ALBUMIN 4.4 3.5 - 5.2 g/dL 09/28/2020 4:[address] [facility] Comment: The colormetric methods used for the determination of Albumin may lead to falsely elevated test results in patients suffering from renal failure or insufficiency due to interference with other proteins. A/G RATIO 1.3 1.0 - 2.0 09/28/2020 4:[address] [facility] CALCIUM 9.4 8.9 - 10.3 mg/dL 09/28/2020 4:[address] [facility] T BILI 0.3 <=1.2 mg/dL 09/28/2020 4:[address] [facility] SGOT (AST) 14 <=32 U/L 09/28/2020 4:09 PM STEAMFITTER [facility] SGPT (ALT) 10 <=41 U/L 09/28/2020 4:09 PM STEAMFITTER [facility] ALKALINE PHOSPHATASE 113(H) 35 - 105 U/L 09/28/2020 4:09 PM STEAMFITTER [facility] GFR, EST. NONAFRICAN >60 >=60 09/28/2020 4:09 PM STEAMFITTER [facility] GFR, EST. >60 >=60 021 4:09 PM STEAMFITTER [facility] Comment: Creatinine Clearance is the preferred criteria for selecting drug dose adjustments in renally impaired patients. ??The GFR is provided as additional pertinent clinical information. GFR is reported in mL/min/1.73 sq m. IS THE PATIENT REQUIRED TO BE FASTING? No 09/28/2020 4:09 PM STEAMFITTER [facility] Blood Venipuncture / Unknown 09/28/2020 11:20 AM STEAMFITTER 09/28/2020 11:20 AM STEAMFITTER us Sg Richards MD CHEMISTRY ORDERABLES Anusha l Result [facility] [address] [place] [address] documented in this encounter Visit Diagnoses Diagnosis Seizure disorder (HCC)- Primary Unspecified epilepsy without mention of intractable epilepsy Arthritis Arthropathy, unspecified, site unspecified Gastroesophageal reflux disease without esophagitis Esophageal reflux Intractable chronic migraine without aura and without status migrainosus Chronic migraine without aura, with intractable migraine, so stated, without mention of status migrainosus documented in this encounter Additional Health Concerns Assessment Noted Time PHQ-9 Depression Total Score: 0 12/25/19 17 1:00 PM CDT documented as of this encounter Care Teams Teacher Emotionally Impaired Relationship Specialty Start Date End Date Sg Richards MD [address] [place] [address] PCP - General Internal Medicine 03/28/15 08/12/21 Va Ferrell MD [address] [facility] [place] [address] Consulting Physician Obstetrics & Gynecology 06/04/16 Jacqui Rooney OD [address] [place] [address] Consulting Physician Optometry 10/15/16 03/26/23 Soto Vera MD [address] [place] [address] Consulting Physician Neurology 09/28/20 03/25/23 Will Augustine MD Consulting Physician Neurology 04/22/16 documented as of this encounter
--- OUTSIDE RECORDS SUMMARY | 2024-07-16 12:48 | XMS_ITS | Encounter Summary ---
Author Organization [facility] Address [address] [place] [address] Phone Care Team Providers Care Gas Meter Checker Name Role Phone Sg Richards MD Primary Care Provider [phone] Va Ferrell MD Unavailable [phone] Jacqui Rooney OD Unavailable [phone] Soto Vera MD Unavailable Unavailable Davi Georges Primary Care Provider Inna Fair MD Unavailable Reason for Visit * Reason Comments Medication Refill Encounter Details Date Type Department Care Team (Late st Contact Info) Description 11/23/2020 Refill [facility] - Primary Care - [place] [address] [place] [phone] Sg Richards MD [address] [place], [place] [id number] Medication Refill Social History Tobacco Use Types [...] encounter Miscellaneous Notes * Telephone Encounter - Maddie Pretty RN - 11/23/2020 3:15 PM CDT Medication approved and signed per [...] documented as of this encounter Care Teams Gas Meter Checker Relationship Specialty Start Date End Date gS Richards MD [address] [place] [address] PCP - General Internal Medicine 03/28/15 08/12/21 Davi Georges [address] [place] [address] PCP - General Family Medicine 02/05/23 [place] [address] Consulting Physician Obstetrics & Gynecology 06/04/16 Jacqui Rooney OD [address] [facility] [address] Consulting Physician Optometry 10/15/16 03/26/23 Soto Vera MD [address] [facility] [address] Consulting Physician Neurology 09/28/20 03/25/23 Inna Fair MD [address] [place] [address] Consulting Physician Oncology 02/05/23 Will Augustine MD Consulting Physician Neurology 04/22/16 documented as of this encounter
--- OUTSIDE RECORDS SUMMARY | 2024-07-16 12:48 | XMS_ITS | Encounter Summary ---
Author Organization [facility] Address [address] [place] [address] Phone Care Team Providers Care Spindle Carver Name Role Phone Sg Richards MD Primary Care Provider [phone] Va Ferrell MD Unavailable Jacqui Rooney OD Unavailable [phone] Soto Vera MD Unavailable Unavailable Encounter Details Date Type Department Care Team (Late st Contact Info) Description 09/28/2020 2:10 PM HUMAN PROJECTILE Lab [facility] - Primary Care - [address] [phone] [facility] Seizure disorder (HCC); Arthritis Discharge Disposition: Discharged to home or Selfcare [...] COVID-19? No / Unsure 09/28/2020 10:34 AM HUMAN PROJECTILE documented as of this encounter Progress Notes * Va Yun RMA - 09/28/2020 2:10 PM CST Kayla presents for lab draw per order of Dr. Richards dated 09/28/20. Specimen collected from right antecubital without incident. [facility] PROJECTILE * Eleanor Lebron CMA - 09/28/2020 2:10 PM CST Result letter sent. documented in this encounter Plan of Treatment Not on file documented as of this encounter Procedures Procedure Name Priority Date/Time Associated Diagnosis Comments CBC WITH AUTO DIFFERENTIAL Today 09/28/2020 11:20 AM HUMAN PROJECTILE Seizure disorder (HCC) Arthritis CMP (COMPREHENSIVE METABOLIC PANEL) Today 09/28/2020 11:20 AM HUMAN PROJECTILE Seizure disorder (HCC) Arthritis COMPLETE BLOOD COUNT (CBC) WITH DIFF Today 09/28/2020 11:20 AM HUMAN PROJECTILE Seizure disorder (HCC) Arthritis documented in this encounter Results * (ABNORMAL) CBC WITH AUTO DIFFERENTIAL (09/28/2020 11:20 AM HUMAN PROJECTILE) WBC 6.07 4.00 - 12.00 10(3)/mcL 09/28/2020 3:49 PM HUMAN PROJECTILE [facility] RBC 4.12 3.80 - 5.30 10(6)/mcL 09/28/2020 3:49 PM [facility] HEMOGLOBIN (HGB) 13.8 12.0 - 15.8 g/dL 09/28/2020 3:49 PM [facility] PROJECT[facility] HEMATOCRIT (HCT) 42.2 36.0 - 47.0 % 09/28/2020 3:49 PM [facility]UMAN PROJECTILE [facility] MCV 102.4(H) 82.0 - 96.0 fL 09/28/2020 3:49 PM [facility] MCH 33.5 26.0 - 34.0 pg 09/28/2020 3:49 PM [facility] MCHC 32.7 31.0 - 36.0 g/dL 09/28/2020 3:49 PM [facility] PLATELET COUNT 233 140 - 440 10(3)/mcL 09/28/2020 3:49 PM [facility] RDW 12.5 11.8 - 15.5 % 09/28/2020 3:49 PM [facility] MPV 11.1 9.7 - 12.4 fL 09/28/2020 3:49 PM [facility] NEUTROPHILS 56.6 47.0 - 73.0 % 09/28/2020 3:49 PM [facility] LYMPHOCYTES 33.4 18.0 - 42.0 % 09/28/2020 3:49 PM [facility] MONOCYTES 7.7 4.0 - 12.0 % 09/28/2020 3:49 PM [facility] EOSINOPHILS 1.6 0.0 - 5.0 % 09/28/2020 3:49 PM [facility] BASOPHILS 0.7 0.0 - 1.0 % 09/28/2020 3:49 PM [facility] ABSOLUTE NEUTROPHILS 3.43 1.60 - 7.70 10(3)/mcL 09/28/2020 3:49 PM [facility] ABSOLUTE LYMPHOCYTES 2.03 1.30 - 3.20 10(3)/mcL 09/28/2020 3:49 PM [facility] ABSOLUTE MONOCYTES 0.47 0.20 - 1.00 10(3)/mcL 09/28/2020 3:49 PM [facility] ABSOLUTE EOSINOPHIL 0.10 0.00 - 0.40 10(3)/mcL 09/28/2020 3:49 PM [facility] ABSOLUTE BASOPHILS 0.04 0.00 - 0.10 10(3)/mcL 09/28/2020 3:49 PM HUMAN PROJECTILE [facility] NRBC PER 100 WBC 0 09/29/19 3:49 PM [facility] Blood Venipuncture / Unknown 09/28/2020 11:20 AM HUMAN PROJECTILE 09/28/2020 11:20 AM HUMAN PROJECTILE us Sg Richards MD HEMATOLOGY ORDERABLES Fin al Result [facility] [address] [place] [address] * (ABNORMAL) CMP (COMPREHENSIVE METABOLIC PANEL) (09/28/2020 11:20 AM HUMAN PROJECTILE) SODIUM 134(L) 136 - 144 mmol/L 09/28/2020 4:09 PM [facility] POTASSIUM 4.2 3.5 - 5.1 mmol/L 09/28/2020 4:09 PM [facility] CHLORIDE 99(L) 100 - 110 mmol/L 09/28/2020 4:09 PM [facility] CO2, VENOUS 25 22 - 32 mmol/L 09/28/2020 4:09 PM [facility] ANION GAP 14.2 8.0 - 20.0 mmol/L 09/28/2020 4:09 PM [facility] GLUCOSE 83 70 - 99 mg/dL 09/28/2020 4:09 PM [facility] BUN 15 6 - 20 mg/dL 09/28/2020 4:09 PM [facility] CREATININE, BLOOD 0.83 0.60 - 1.10 mg/dL 09/28/2020 4:09 PM [facility] BUN/CREATININE RATIO 18 12 - 20 ratio 09/28/2020 4:09 PM [facility] TOTAL PROTEIN 7.9 6.0 - 8.3 g/dL 09/28/2020 4:09 PM [facility] ALBUMIN 4.4 3.5 - 5.2 g/dL 09/28/2020 4:09 PM [facility] Comment: The colormetric methods used for the determination of Albumin may lead to falsely elevated test results in patients suffering from renal failure or insufficiency due to interference with other proteins. A/G RATIO 1.3 1.0 - 2.0 09/28/2020 4:09 PM [facility] CALCIUM 9.4 8.9 - 10.3 mg/dL 09/28/2020 4:09 PM [facility] T BILI 0.3 <=1.2 mg/dL 09/28/2020 4:09 PM [facility] SGOT (AST) 14 <=32 U/L 09/28/2020 4:09 PM [facility] SGPT (ALT) 10 <=41 U/L 09/28/2020 4:09 PM [facility] ALKALINE PHOSPHATASE 113(H) 35 - 105 U/L 09/28/2020 4:09 PM [facility] GFR, EST. NONAFRICAN >60 >=60 09/28/2020 4:09 PM [facility] GFR, EST. >60 >=60 021 4:09 PM [facility] Comment: Creatinine Clearance is the preferred criteria for selecting drug dose adjustments in renally impaired patients. ??The GFR is provided as additional pertinent clinical information. GFR is reported in mL/min/1.73 sq m. IS THE PATIENT REQUIRED TO BE FASTING? No 09/28/2020 4:09 PM [facility] Blood Venipuncture / Unknown 09/28/2020 11:20 AM HUMAN PROJECTILE 09/28/2020 11:20 AM HUMAN PROJECTILE us Sg Richards MD CHEMISTRY ORDERABLES Anusha medina Result [facility] [address] [place] [address] documented in this encounter Visit Diagnoses Diagnosis Seizure disorder (HCC) Unspecified epilepsy without mention of intractable epilepsy Arthritis Arthropathy, unspecified, site unspecified documented in this encounter Additional Health Concerns Assessment Noted Time PHQ-9 Depression Total Score: 0 12/25/19 17 1:00 PM CDT documented as of this encounter Care Teams Spindle Carver Relationship Specialty Start Date End Date Sg Richards MD [address] [place] [address] PCP - General Internal Medicine 03/28/15 08/12/21 Va Ferrell MD [address] [place] [address] Consulting Physician Obstetrics & Gynecology 06/04/16 Jacqui Rooney OD [address] [place] [address] Consulting Physician Optometry 10/15/16 03/26/23 Soto Vera MD [address] [place] [address] Consulting Physician Neurology 09/28/20 03/25/23 Will Augustine MD Consulting Physician Neurology 04/22/16 documented as of this encounter
--- OUTSIDE RECORDS SUMMARY | 2024-07-16 12:48 | XMS_ITS | Encounter Summary ---
Author Organization [facility] Address [address] [place] [address] Phone Care Team Providers Care Audio Video Mechanic Name Role Phone Sg Richards MD Primary Care Provider [phone] Va Ferrell MD Unavailable [phone] Jacqui Rooney OD Unavailable [phone] Reason for Visit * Reason Comments Skin Lesion one on abdomin that is black and one on arm that just came up and is raised Encounter Details Date Type Department Care Team (Late st Contact Info) Description 09/22/2019 11:15 AM FACILITY ATTENDANT Office Visit [facility] [address] [place] [address] Sg Richards MD [address] [place] [address] Epidermoid cyst (Primary Dx); Fibroma Discharge Disposition: Discharged to home or Selfcare [...] on file documented as of this encounter Last Filed Vital Signs Vital Sign Reading Time Taken Comments Blood Pressure 118/72 09/22/2019 11:37 AM FACILITY ATTENDANT Pulse 77 09/22/2019 11:37 AM FACILITY ATTENDANT Temperature 36.4 ??C (97.6 ??F) 09/22/2019 11:[address] Respiratory Rate 16 09/22/2019 11:37 AM FACILITY ATTENDANT Oxygen Saturation 98% 09/22/2019 11:37 AM FACILITY ATTENDANT Inhaled Oxygen Concentration - - Weight 100.5 kg (221 lb 8 oz) 09/22/2019 11:37 A M FACILITY ATTENDANT Height 165.1 cm (5' 5 ) 09/22/2019 11:37 AM FACILITY ATTENDANT Body Mass Index 36.86 09/22/2019 11:37 AM FACILITY ATTENDANT documented in this encounter Progress Notes * Mee Vivas, SENIOR DRUPAL DEVELOPER - 09/22/2019 11:15 AM CST Kayla Avila, 44 y.o., female is here for Skin Lesion (one on abdomin that is black and one on arm that just came up and is raised) Medication Refills: Patient reports/denies need for medication refills. Orders Pended: no Requested Prescriptions No prescriptions requested or ordered in this encounter Home Medications Medication Sig Start Date End Date Taking? Authorizing Provider buPROPion SR (WELLBUTRIN SR) 150 MG TABLET SR 12 HR Take 150 mg by mouth. Yes ProviderDany MD clonazePAM (KLONOPIN) 1 MG Tablet Take 1 mg by mouth 2 times daily. Yes Emergency, Nurse, RN diclofenac (VOLTAREN) 75 MG Tablet Delayed Response take 1 tablet by oral route 2 times every day 02/14/15 Yes ProviderDany MD Eslicarbazepine Acetate 800 MG Tablet Take by mouth. Yes ProviderDany MD gabapentin (NEURONTIN) 600 MG Tablet 4 times daily. Yes ProviderDany MD HYDROcodone-acetaminophen (NORCO) 5-325 MG Tablet TK 1 T PO Q 6 H PRN 08/03/19 Yes ProviderDany MD lamoTRIgine (LAMICTAL) 100 MG Tablet Take 350 mg by mouth 2 times daily. 06/23/16 Yes Sg Richards MD Levetiracetam 1000 MG Tablet take 2 tablet by oral route every 12 hours 06/04/16 Yes ProviderDany MD zvdehijl-hxssxgkoi-bexelonyatmmio (CORTISPORIN) 3.5-93708-8 Solution INT 2 GTS TO EACH EAR Q 6 H FOR 7 DAYS 06/23/19 Yes ProviderDany MD pantoprazole (PROTONIX) 40 MG Tablet Delayed Response Take 1 Tab by mouth daily. Patient not taking: Reported on 08/26/2019 06/24/19 Sg Richards MD primidone (MYSOLINE) 50 MG Tablet Take 75 mg by mouth nightly. Yes ProviderDany MD traZODone (DESYREL) 100 MG Tablet 05/26/16 Yes ProviderDany MD There are no discontinued medications. I have reviewed the home medication list with the patient and have reconciled discrepancies. The list is accurate to the best of my knowledge. Smoking Status: Social History Tobacco Use ??? Smoking status: Former Smoker Packs/day: 0.25 Types: Cigarettes Last attempt to quit: 06/10/2018 Years since quittin.2 ??? Smokeless tobacco: Never Used Substance Use Topics ??? Alcohol use: No Alcohol/week: 0.0 oz ??? Drug use: No Smoking Cessation Counseling Given: no Health Care Maintenance: Health Maintenance Due Topic Date Due ??? Pap Smear 1996 ??? Discussion re Starting/Frequency of Mammograms 2015 ??? Influenza Immunization (1) 03/20/2019 Orders Pended: no The following BPA's have been addressed with the patient today: pap LITY ATTENDANT * Sg Richards MD - 09/22/2019 11:15 AM CST Images from the original note were not included. Subjective: HPI Patient presents with 2 skin lesions she is concerned about. Both have been present for at least several months but each have changed a little bit during that time. One lesion is on her upper abdomenand it recently turned dark. The 2nd lesion is on her right forearm and became slightly raised recently. Review of Systems Constitutional: Negative. HENT: Negative. Eyes: Negative. Respiratory: Negative. Cardiovascular: Negative. Gastrointestinal: Negative. Endocrine: Negative. Genitourinary: Negative. Musculoskeletal: Negative. Skin: Skin lesion x2 Allergic/Immunologic: Negative. Neurological: Negative. Hematological: Negative. Psychiatric/Behavioral: Negative. Objective: Physical Exam Constitutional: Appearance: She is well-developed. HENT: Head: Normocephalic. Right Ear: External ear normal. Left Ear: External ear normal. Nose: Nose normal. Eyes: Pupils: Pupils are equal, round, and reactive to light. Neck: Musculoskeletal: Normal range of motion. Cardiovascular: Rate and Rhythm: Normal rate and regular rhythm. Pulmonary: Effort: Pulmonary effort is normal. No respiratory distress. Musculoskeletal: Normal range of motion. Skin: General: Skin is warm and dry. Comments: 2-3 mm epidermoid cyst in in the epigastric region. Contents are black due to oxidation from a small opening. 2 mm mono pigmented fibroma on the right forearm. Neurological: Mental Status: She is alert and oriented to person, place, and time. Psychiatric: Mood and Affect: Mood is anxious. Behavior: Behavior normal. Thought Content: Thought content normal. Judgment: Judgment normal. Assessment and Plan See Diagnoses, Orders, Follow-up, and Instructions Observation. In particular, I have asked her to call if the lesion on her right forearm increases in size or changes in color. Otherwise follow-up as scheduled. I have seen and examined the patient on today's date. Documentation for this visit was completed using the assistance of a template. Everything documented in this visit was personally performed todaywith the necessary additions, deletions and changes. LITY ATTENDANT documented in this encounter Plan of Treatment Not on file documented as of this encounter Visit Diagnoses Diagnosis Epidermoid cyst- Primary Sebaceous cyst Fibroma Other benign neoplasm of connective and other soft tissue of unspecified site documented in this encounter Additional Health Concerns Assessment Noted Time PHQ-9 Depression Total Score: 0 12/25/19 17 1:00 PM CDT documented as of this encounter Care Teams Audio Video Mechanic Relationship Specialty Start Date End Date Sg Richards MD [address] [place] [address] PCP - General Internal Medicine 03/28/15 08/12/21 Va Ferrell MD ONE [employer]ESSION[employer] [address] [address] Consulting Physician Obstetrics & Gynecology 06/04/16 Jacqui Rooney OD [address] [place] [address] Consulting Physician Optometry 10/15/16 03/26/23 Will Augustine MD Consulting Physician Neurology 04/22/16 documented as of this encounter
--- OUTSIDE RECORDS SUMMARY | 2024-07-16 12:48 | XMS_ITS | Encounter Summary ---
Author Organization [facility] Care Team Providers Care Sales Center Manager Name Role Phone Sg Richards MD Primary Care Provider [phone] Va Ferrell MD Unavailable Jacqui Rooney OD Unavailable [phone] Soto Vera MD Unavailable Unavailable Encounter Details Date Type Department Care Team (Latest Contact Info) Description 01/03/2021 Travel Social History Tobacco Use Types Packs/Day [...] have Coronavirus / COVID-19? No / Unsure 01/03/2021 2:26 PM CDT documented as of this encounter Plan of Treatment Not on file documented as of this encounter Visit Diagnoses Not on filedocumented in this encounter Additional Health Concerns Assessment Noted Time PHQ-9 Depression Total Score: 0 12/25/19 17 1:00 PM CDT documented as of this encounter Care Teams Sales Center Manager Relationship Specialty Start Date End Date Sg Richards MD [address] [place] [address] PCP - General Internal Medicine 03/28/15 08/12/21 Va Ferrell MD ONE PROFESSIONAL [address] [address] Consulting Physician Obstetrics & Gynecology 06/04/16 Jacqui Rooney OD [address] [place] [address] Consulting Physician Optometry 10/15/16 03/26/23 Soto Vera MD [address] [place] [address] Consulting Physician Neurology 09/28/20 03/25/23 Will Augustine MD Consulting Physician Neurology 04/22/16 documented as of this encounter
--- OUTSIDE RECORDS SUMMARY | 2024-07-16 12:48 | XMS_ITS | Encounter Summary ---
Author Organization [facility] Care Team Providers Care Bottling Machine Operator Name Role Phone Sg Richards MD Primary Care Provider [phone] Va Ferrell MD Unavailable Jacqui Rooney OD Unavailable [phone] Encounter Details Date Type Department Care Team (Latest Contact Info) Description 08/26/2019 Travel Social History Tobacco Use Types Packs/Day [...] documented as of this encounter Care Teams Bottling Machine Operator Relationship Specialty Start Date End Date Sg Richards MD [address] [place] [address] PCP - General Internal Medicine 03/28/15 08/12/21 Va Ferrell MD ONE PROFESSIONAL [address] [address] Consulting Physician Obstetrics & Gynecology 06/04/16 Jacqui Rooney OD [address] [place] [address] Consulting Physician Optometry 10/15/16 03/26/23 Will Augustine MD Consulting Physician Neurology 04/22/16 documented as of this encounter
--- OUTSIDE RECORDS SUMMARY | 2024-07-16 12:48 | XMS_ITS | Encounter Summary ---
Author Organization [facility] Address [address] [place] [address] Phone Care Team Providers Care Paste Up Worker Name Role Phone Sg Richards MD Primary Care Provider [phone] Va Ferrell MD Unavailable [phone] Jacqui Rooney OD Unavailable [phone] Reason for Referral * Consult, Test & Initiate Treatment (Less Than 1 Week) - Closed Specialty Diagnoses / Procedures Referred By Contac t Referred To Contact Diagnoses Seizure disorder (HCC) Nonintractable epilepsy without status epilepticus, unspecified epilepsy type (HCC) Sg Richards MD Phone: tel: fax: Referral ID Status Reason Start Date Expiration Date Visits Re quested Visits Authorized [id number] Closed 12/19/2019 1 12 Scheduling Instructions Kayla is being referred to neruology or other specialist in patient's insurance network for [id number]. See below for Kayla's current medications, allergies and problem list. Please contact patient for scheduling questions or concerns. CURRENT MEDS: Current Outpatient Medications: buPROPion SR (WELLBUTRIN SR) 150 MG TABLET SR 12 HR, Take 150 mg by mouth., Disp: , Rfl: clonazePAM (KLONOPIN) 1 MG Tablet, Take 1 mg by mouth 2 times daily., Disp: , Rfl: diclofenac (VOLTAREN) 75 MG Tablet Delayed Response, take 1 tablet by oral route 2 times every day, Disp: , Rfl: Eslicarbazepine Acetate 800 MG Tablet, Take by mouth., Disp: , Rfl: gabapentin (NEURONTIN) 600 MG Tablet, 4 times daily., Disp: , Rfl: HYDROcodone-acetaminophen (NORCO) 5-325 MG Tablet, TK 1 T PO Q 6 H PRN, Disp: , Rfl: lamoTRIgine (LAMICTAL) 100 MG Tablet, Take 350 mg by mouth 2 times daily., Disp: 30 Tab, Rfl: Levetiracetam 1000 MG Tablet, take 2 tablet by oral route every 12 hours, Disp: , Rfl: isxmnmvp-lhfnaardz-cneaimwpwbjqif (CORTISPORIN) 3.5-10863-1 Solution, INT 2 GTS TO EACH EAR Q 6 H FOR 7 DAYS, Disp: , Rfl: primidone (MYSOLINE) 50 MG Tablet, Take 75 mg by mouth nightly., Disp: , Rfl: traZODone (DESYREL) 100 MG Tablet, , Disp: , Rfl: 1 No current facility-administered medications for this visit. ALLERGIES: -- Erythromycin -- Hallucinations and Other (see Comments) -- Neuro problems Seizure as a baby -- Silicones [Silicone] -- Hives -- Tape [Adhesive Tape] -- Hives PROBLEM LIST: Patient Active Problem List: Seizure disorder (HCC) Depression Arthritis DENNYS (obstructive sleep apnea) Gastroesophageal reflux disease Encounter Details Date Type Department Care Team (Late st Contact Info) Description 12/19/[address] [address] Sg Richards MD [address] [place] [address] Social History Tobacco Use Types Packs/Day Years [...] Telephone Encounter - Sg Richards MD - 12/19/2019 12:44 PM CDT Neurology referral approved. * Telephone Encounter - Maddie Lo RN - 12/19/2019 12:18 PM CDT Billie with Dr. Augustine neurologist calling and asking for referral. Patient has an appt on 01/03/2020 for epilepsy. External neuro referral pended, please review. documented in this encounter Plan of Treatment Not on file documented as of this encounter Results * EXTERNAL NEUROLOGY REFERRAL (03/09/2020) us Sg Richards MD OUTPT REFERRALS EXT/INT F inal Result documented in this encounter Visit Diagnoses Diagnosis Seizure disorder (HCC)- Primary Unspecified epilepsy without mention of intractable epilepsy Nonintractable epilepsy without status epilepticus, unspecified epilepsy type (HCC) documented in this encounter Additional Health Concerns Assessment Noted Time PHQ-9 Depression Total Score: 0 12/25/19 17 1:00 PM CDT documented as of this encounter Care Teams Paste Up Worker Relationship Specialty Start Date End Date Sg Richards MD [address] [place] [address] PCP - General Internal Medicine 03/28/15 08/12/21 [place] [address] Consulting Physician Obstetrics & Gynecology 06/04/16 Jacqui oRoney OD [address] [place] [address] Consulting Physician Optometry 10/15/16 03/26/23 Will Augustine MD Consulting Physician Neurology 04/22/16 documented as of this encounter
--- OUTSIDE RECORDS SUMMARY | 2024-07-16 12:48 | XMS_ITS | Encounter Summary ---
Author Organization [facility] Address [address] [place] [address] Phone Care Team Providers Care Blindstitch Hemmer Name Role Phone Sg Richards MD Primary Care Provider [phone] Va Ferrell MD Unavailable Jacqui Rooney OD Unavailable [phone] Reason for Visit * Reason Comments Fever down this am Cough Fatigue Encounter Details Date Type Department Care Team (Late st Contact Info) Description 08/26/2019 11:20 AM BURLAP MAN Office Visit [facility] [address] [place] [address] Nav Bello PAC Body aches (Primary Dx) Discharge Disposition: Discharged to home or Selfcare [...] Sign Reading Time Taken Comments Blood Pressure 92/68 08/26/2019 11:29 AM BURLAP MAN Pulse 94 08/26/2019 11:29 AM BURLAP MAN Temperature 37.3 ??C (99.1 ??F) 08/26/2019 11:[address] Respiratory Rate 20 08/26/2019 11:29 AM BURLAP MAN Oxygen Saturation 97% 08/26/2019 11:29 AM BURLAP MAN Inhaled Oxygen Concentration - - Weight 99 kg (218 lb 4.8 oz) 08/26/2019 11:29 AM BURLAP MAN Height 165.1 cm (5' 5 ) 08/26/2019 11:29 AM BURLAP MAN Body Mass Index 36.33 08/26/2019 11:29 AM BURLAP MAN documented in this encounter Patient Instructions * Patient Instructions* Nav Bello, DG - 08/26/2019 11:20 AM BURLAP MAN Kayla was seen today for fever, cough and fatigue. Diagnoses and all orders for this visit: Viral URI Body aches - POCT INFLUENZA A & B- negative - POCT GROUP A STREP SCREEN RAPID- negative - Caring for a Viral Upper Respiratory Infection [...] honey often help with coughing --May use lffr-ulp-vgurske cough suppressant such as Delsym (dextromethorophan) as needed at bedtime --May use asdd-awf-mchmsji expectorant such as Mucinex (guafenisen) as needed during the day to thin secretions --May use rldi-oxg-lvjqlsv decongestant such as Sudafed (pseudoephedrine) as needed --If you use a multi-symptom ghoa-bcm-eefxlas cold medicine (Tylenol Cold, NyQuil, etc.), do not take additional Tylenol (or other medincines containing acetaminophen), decongestants, etc as the multi-symptom cold medicines typically contain Tylenol and several other ingredients. --Remember to cover your cough, wash your hands freqeuntly, and avoid sharing drinks, towels, etc while you are sick to avoid spreading the illness to others. - If any worsening of symptoms over the weekend go to ED Other orders - HYDROcodone-acetaminophen (NORCO) 5-325 MG Tablet; TK 1 T PO Q 6 H PRN - Conservative management was discussed, see AVS Take all medications as prescribed. Please continue with a balanced lifestyle of exercise and healthy eating. If symptoms worsen or fail to improve [...] important effort. Thanks for coming in today! AP MAN documented in this encounter Progress Notes * Millicent Mcknight - 08/26/2019 11:20 AM CST Kayla Avila, 44 y.o., female is here for Fever (down this am); Cough; and Fatigue Medication Refills: Patient reports/denies need for medication refills. Orders Pended: no Requested Prescriptions No prescriptions requested or ordered in this encounter Home Medications Medication Sig Start Date End Date Taking? Authorizing Provider buPROPion SR (WELLBUTRIN SR) 150 MG TABLET SR 12 HR Take 150 mg by mouth. Yes Dany Navarrete MD clonazePAM (KLONOPIN) 1 MG Tablet Take 1 mg by mouth 2 times daily. Emergency, Nurse, RN diclofenac (VOLTAREN) 75 MG Tablet Delayed Response take 1 tablet by oral route 2 times every day 02/14/15 ProviderDany MD Eslicarbazepine Acetate 800 MG Tablet Take by mouth. ProviderDany MD gabapentin (NEURONTIN) 600 MG Tablet [...] 12 hours 06/04/16 Yes Dany Navarrete MD fqlxrrkm-hclgcadkq-chmpggblnpvrkq (CORTISPORIN) 3.5-79896-4 Solution INT 2 GTS TO EACH EAR Q 6 H FOR 7 DAYS 06/23/19 ProviderDany MD pantoprazole (PROTONIX) 40 MG Tablet Delayed Response Take 1 Tab by mouth daily. Patient not taking: Reported on 08/26/2019 06/24/19 Sg Richards MD primidone (MYSOLINE) 50 MG Tablet Take 75 mg by mouth nightly. ProviderDany MD traZODone (DESYREL) 50 MG Tablet TK 1-2 TS PO QHS PRN INSOMNIA 05/26/16 Yes Provider, MD Dany There are [...] BPA's have been addressed with the patient today:pap/flu AP MAN * Nav Bello, DG - 08/26/2019 11:20 AM CST HPI: Kayla Avila is a 44 y.o. female presents with fever, cough, congestion, body aches, fevers (tmax 100) x 3 days. Pt reports that she has also had CP and pain with coughing, she does feel SOB and has some wheezes. Pt reports that her has also been sick. Pt has been using nothing OTC. PT denies any hx of lung disease. Pt does have smoking hx. Pt did not get a flu shot this year. ROS: Review of Systems Constitutional: Positive for chills, fever and malaise/fatigue. HENT: Positive for congestion, ear pain (minimal L ) and sore throat. Respiratory: Positive for cough, shortness of breath and wheezing. Negative for sputum production. Cardiovascular: Positive for chest pain (and pain with coughing.). Negative for leg swelling. Gastrointestinal: Positive for diarrhea (chronic). Negative for abdominal pain, nausea and vomiting. Musculoskeletal: Positive for myalgias. Skin: Negative for rash. Neurological: Positive for seizures and headaches (chronic). Negative for dizziness. PE: BP 92/68 (BP Location: Right Arm, BP Position: Sitting, BP Cuff Size: Regular) Pulse 94 Temp 99.1 ??F (37.3 ??C) (Oral) Resp 20 Ht 5' 5 (1.651 m) Wt 218 lb 4.8 oz (99 kg) LMP 06/03/2019 (Approximate) SpO2 97% BMI 36.33 kg/m?? Physical Exam Vitals signs and nursing note reviewed. Constitutional: General: She is not in acute distress. Appearance: She is well-developed. She is not diaphoretic. HENT: Head: Normocephalic and atraumatic. Right Ear: Tympanic membrane and external ear normal. Tympanic membrane is not erythematous or bulging. Left Ear: Tympanic membrane and external ear normal. Tympanic membrane is not erythematous or bulging. Mouth/Throat: Pharynx: Posterior oropharyngeal erythema present. No oropharyngeal exudate. Eyes: Pupils: Pupils are equal, round, and reactive to light. Neck: Musculoskeletal: Normal range of motion and neck supple. Thyroid: No thyromegaly. Cardiovascular: Rate and Rhythm: Normal rate and regular rhythm. Heart sounds: Normal heart sounds. No murmur. Pulmonary: Effort: Pulmonary effort is normal. No respiratory distress. Breath sounds: Normal breath sounds. No wheezing or rales. Comments: No appreciable wheezing, rhonchi or rales. Musculoskeletal: Normal range of motion. Right lower leg: No edema. Left lower leg: No edema. Lymphadenopathy: Cervical: No cervical adenopathy. Skin: General: Skin is warm and dry. Findings: No rash. Neurological: Mental Status: She is alert and oriented to person, place, and time. Psychiatric: Behavior: Behavior normal. Thought Content: Thought content normal. Judgment: Judgment normal. ASSESSMENT/PLAN: Patient Instructions Kayla was seen today for fever, cough and fatigue. Diagnoses and all orders for this visit: Viral URI Body aches - POCT INFLUENZA A & B- negative - POCT GROUP A STREP SCREEN RAPID- negative - Caring for a Viral Upper Respiratory Infection [...] honey often help with coughing --May use idsh-xjy-zkzbexo cough suppressant such as Delsym (dextromethorophan) as needed at bedtime --May use jxqp-jkn-mreslaz expectorant such as Mucinex (guafenisen) as needed during the day to thin secretions --May use znbc-sdh-tzejyrq decongestant such as Sudafed (pseudoephedrine) as needed --If you use a multi-symptom xjew-xhq-ucyctni cold medicine (Tylenol Cold, NyQuil, etc.), do not take additional Tylenol (or other medincines containing acetaminophen), decongestants, etc as the multi-symptom cold medicines typically contain Tylenol and several other ingredients. --Remember to cover your cough, wash your hands freqeuntly, and avoid sharing drinks, towels, etc while you are sick to avoid spreading the illness to others. - If any worsening of symptoms over the weekend go to ED - Conservative management was discussed, see AVS Take all medications as prescribed. Please continue with a balanced lifestyle of exercise and healthy eating. If symptoms worsen or fail to improve [...] important effort. Thanks for coming in today! Chief complaint and all history documented by ancillary staff were reviewed and verified, with additions or corrections, as appropriate. Nav Bello PA-C AP MAN * Nav Bello PAC - 08/26/2019 11:20 AM CST Discussed in OV. AP MAN documented in this encounter Plan of Treatment Not on file documented as of this encounter Procedures Procedure Name Priority Date/Time Associated Diagnosis Comments POCT GROUP A STREP SCREEN RAPID Routine 08/26/2019 1:00 PM BURLAP MAN Body aches POCT INFLUENZA A & B Routine 08/26/2019 12:30 PM BURLAP MAN Body aches documented in this encounter Results * POCT GROUP A STREP SCREEN RAPID (08/26/2019 1:00 PM BURLAP MAN) POC STREP SCRN Presumptive negative POC STREP SCREEN CONTROL Network Programmer Pass 08/26/2019 1:00 PM [place]URLAP MAN Nav Bello [facility] POINT OF CARE TESTING (M ANUAL) Final Result * POCT INFLUENZA A & B (08/26/2019 12:30 PM BURLAP MAN) POC INFLU A Presumptive negative Group A POC INFLU B Presumptive negative Group B POC INFLUENZA CONTROL Network Programmer Pass 08/26/2019 12:3 0 PM BURLAP MAN aNv Bello [facility] POINT OF CARE TESTING (M ANUAL) Final Result documented in this encounter Visit Diagnoses Diagnosis Body aches- Primary Generalized pain documented in this encounter Additional Health Concerns Assessment Noted Time PHQ-9 Depression Total Score: 0 12/25/19 17 1:00 PM CDT documented as of this encounter Care Teams Blindstitch Hemmer Relationship Specialty Start Date End Date Sg Richards MD [address] [place] [address] PCP - General Internal Medicine 03/28/15 08/12/21 Va Ferrell MD ONE PROFESSIONAL [place] [address] Consulting Physician Obstetrics & Gynecology 06/04/16 Jacqui Rooeny, SHARI [address] [place] [address] Consulting Physician Optometry 10/15/16 03/26/23 Will Augustine MD Consulting Physician Neurology 04/22/16 documented as of this encounter
--- OUTSIDE RECORDS SUMMARY | 2024-07-16 12:48 | XMS_ITS | Encounter Summary ---
Author Organization [facility] Address [address] [place] [address] Phone Care Team Providers Care Tinter Photograph Name Role Phone Sg Richards MD Primary Care Provider [phone] Va Ferrell MD Unavailable [phone] Jacqui Rooney OD Unavailable [phone] Soto Vera MD Unavailable Unavailable Reason for Visit * Reason Comments Skin Lesion on right ear Encounter Details Date Type Department Care Team (Late st Contact Info) Description 01/07/2021 1:30 PM CDT Office Visit [facility] - [place] [address] [place] [phone] Sg Richards MD [address] [place] [address] Epidermoid cyst (Primary Dx) Discharge Disposition: Discharged to home [...] have Coronavirus / COVID-19? No / Unsure 01/07/2021 12:35 PM CDT documented as of this encounter Last Filed Vital Signs Vital Sign Reading Time Taken Comments Blood Pressure 120/74 01/07/2021 1:01 PM CDT Pulse 74 01/07/2021 1:01 PM CDT Temperature 36.7 ??C (98 ??F) 01/07/2021 1:01 PM CDT Respiratory Rate 20 01/07/2021 1:01 PM CDT Oxygen Saturation 99% 01/07/2021 1:01 PM CDT Inhaled Oxygen Concentration - - Weight - - Height 165.1 cm (5' 5 ) 01/07/2021 1:01 PM CDT Body Mass Index - - documented in this encounter Progress Notes * Lissett Reid, RMA - 01/07/2021 1:30 PM CDT Kayla Rhonda Avila, 45 y.o., female is here for Skin Lesion (on right ear ) Medication Refills: Patient reports/denies need for medication refills. Orders Pended: no Requested Prescriptions No prescriptions requested or ordered in this encounter Home Medications Medication Sig Start Date End Date Taking? Authorizing Provider diclofenac (VOLTAREN) 75 MG Tablet Delayed Response take 1 tablet by oral route 2 times every day 02/14/15 Yes ProviderDany MD Erenumab-aooe 70 MG/ML Solution Auto-injector 70 mg by Subcutaneous route. 01/03/21 Yes ProviderDany MD Eslicarbazepine Acetate 800 MG Tablet Take by mouth. Yes Provider, MD Dany gabapentin (NEURONTIN) 600 MG Tablet 4 times daily. Yes ProviderDany MD HYDROcodone-acetaminophen (NORCO) 5-325 MG Tablet TK 1 T PO Q 6 H PRN 08/03/19 Yes ProviderDany MD lamoTRIgine (LAMICTAL) 100 MG Tablet Take 350 mg by mouth 2 times daily. 06/23/16 Yes Sg Richards MD Levetiracetam 1000 MG Tablet take 2 tablet by oral route every 12 hours 06/04/16 Yes ProviderDany MD pantoprazole (PROTONIX) 40 MG Tablet Delayed Response TAKE 1 TABLET BY MOUTH DAILY 11/23/20 Yes Sg Richards MD primidone (MYSOLINE) 50 [...] Types: Cigarettes Quit date: 06/10/2018 Years since quittin.5 ??? Smokeless tobacco: Never Used Substance Use Topics ??? Alcohol use: No Alcohol/week: 0.0 oz ??? Drug use: No Smoking Cessation Counseling Given: n/a Health Care Maintenance: Health Maintenance Due Topic Date Due ??? SARS-COV-2 Immunization (1) Never done ??? Pap Smear Never done ??? Discussion re Starting/Frequency of Mammograms Never done Orders Pended: n/a The following BPA's have been addressed with the patient today: Pap * Sg Richards MD - 01/07/2021 1:30 PM CDT Images from the original note were not included. Subjective: HPI Patient presents with complaint of a red, inflamed, itchy spot on her right ear lobe for the past couple of weeks. This apparently appeared fairly suddenly and was moderately uncomfortable initially.It ruptured and since then has progressively gotten smaller. It now itches somewhat. Her has been applying hydrogen peroxide to the area. Review of Systems Constitutional: Negative. HENT: Negative. Eyes: Negative. Respiratory: Negative. Cardiovascular: Negative. Gastrointestinal: Negative. Endocrine: Negative. Genitourinary: Negative. Musculoskeletal: Negative. Skin: Skin lesion, right ear lobe Allergic/Immunologic: Negative. Neurological: Negative. Hematological: Negative. Psychiatric/Behavioral: Negative. Objective: Physical Exam Exam conducted with a general studies program chair present (Spouse). Constitutional: Appearance: She is well-developed. HENT: Head: Normocephalic. Comments: 4 mm area of roughened, erythematous skin with no secondary signs of infection. Right Ear: External ear normal. Left Ear: External ear normal. Nose: Nose normal. Eyes: Pupils: Pupils are equal, round, and reactive to light. Cardiovascular: Rate and Rhythm: Normal rate and regular rhythm. Pulmonary: Effort: Pulmonary effort is normal. No respiratory distress. Musculoskeletal: General: Normal range of motion. Cervical back: Normal range of motion. Skin: General: Skin is warm and dry. Neurological: Mental Status: She is alert and oriented to person, place, and time. Psychiatric: Behavior: Behavior normal. Thought Content: Thought content normal. Judgment: Judgment normal. Assessment and Plan See Diagnoses, Orders, Follow-up, and Instructions Problem List Items Addressed This Visit None Visit Diagnoses Epidermoid cyst - Primary This appears to be an epidermoid cyst that became inflamed and/or infected and has since ruptured and largely resolved. Advised to stop using hydrogen peroxide on the skin since that is causing persistent irritation. Advised to use OTC hydrocortisone cream twice a day and clean with warm soapy water. Follow-up as scheduled. I have seen and examined the patient on today's date. Documentation for this visit was completed using the assistance of a template. Everything documented in this visit was personally performed todaywith the necessary additions, deletions and changes. documented in this encounter Plan of Treatment Not on file documented as of this encounter Visit Diagnoses Diagnosis Epidermoid cyst- Primary Sebaceous cyst documented in this encounter Additional Health Concerns Assessment Noted Time PHQ-9 Depression Total Score: 0 12/25/19 17 1:00 PM CDT documented as of this encounter Care Teams Tinter Photograph Relationship Specialty Start Date End Date Sg Richards MD [address] [place] [address] PCP - General Internal Medicine 03/28/15 08/12/21 Va Ferrell MD [address] [address] Consulting Physician Obstetrics & Gynecology 06/04/16 Jacqui Rooney OD [address] [place] [address] Consulting Physician Optometry 10/15/16 03/26/23 Soto Vera MD [address] [place] [address] Consulting Physician Neurology 09/28/20 03/25/23 Will Augustine MD Consulting Physician Neurology 04/22/16 documented as of this encounter
--- OUTSIDE RECORDS SUMMARY | 2024-07-16 12:48 | XMS_ITS | Encounter Summary ---
Author Organization [facility] Care Team Providers Care Cook 3 Pastry Name Role Phone Sg Richards MD Primary Care Provider [phone] Va Ferrell MD Unavailable Jacqui Rooney OD Unavailable [phone] Soto Vera MD Unavailable Unavailable Encounter Details Date Type Department Care Team (Latest Contact Info) Description 09/28/2020 Travel Social History Tobacco Use Types Packs/Day [...] COVID-19? No / Unsure 09/28/2020 10:34 AM TRAP OPERATOR documented as of this encounter Plan of Treatment Not on file documented as of this encounter Visit Diagnoses Not on filedocumented in this encounter Additional Health Concerns Assessment Noted Time PHQ-9 Depression Total Score: 0 12/25/19 17 1:00 PM CDT documented as of this encounter Care Teams Cook 3 Pastry Relationship Specialty Start Date End Date Sg Richards MD [address] [place] [address] PCP - General Internal Medicine 03/28/15 08/12/21 Va Ferrell MD [employer] [address] [address] Consulting Physician Obstetrics & Gynecology 06/04/16 Jacqui Rooney OD [address] [place] [address] Consulting Physician Optometry 10/15/16 03/26/23 Soto Vera MD [address] [place] [address] Consulting Physician Neurology 09/28/20 03/25/23 Will Augustine MD Consulting Physician Neurology 04/22/16 documented as of this encounter
--- OUTSIDE RECORDS SUMMARY | 2024-07-16 12:48 | XMS_ITS | Encounter Summary ---
Author Organization [facility] Address [address] [place] [address] Phone Care Team Providers Care Orthotics Assistant Name Role Phone Sg Richards MD Primary Care Provider [phone] Va Ferrell MD Unavailable Jacqui Rooney OD Unavailable Reason for Visit * Reason Onset Date Comments Medication Refill 05/22/2020 Encounter Details Date Type Department Care Team (Late st Contact Info) Description 05/22/2020 Refill [facility] - Primary Care - [place] [address] [place] [address] Sg Richards MD [address] [place] [address] Medication Refill Social History Tobacco [...] Telephone Encounter - Sg Richards MD - 05/22/2020 12:10 PM MACHINE GUIDE BASE WINDER Refill request approved. INE GUIDE BASE WINDER * Telephone Encounter - Eleanor Lebron CMA - 05/22/2020 12:08 PM MACHINE GUIDE BASE WINDER Last refill 02/24/20 for pantoprazole with #90 and 0 refills. Last labs done 07/07/19. Last office visit 01/13/20. Future office visit 07/05/20. INE GUIDE BASE WINDER documented in this encounter Plan of Treatment Not on file documented as of this encounter Visit Diagnoses Not on filedocumented in this encounter Additional Health Concerns Assessment Noted Time PHQ-9 Depression Total Score: 0 12/25/19 17 1:00 PM CDT documented as of this encounter Care Teams Orthotics Assistant Relationship Specialty Start Date End Date Sg Richards MD [address] [place] [address] PCP - General Internal Medicine 03/28/15 08/12/21 Va Ferrell MD [address] [place] [address] Consulting Physician Obstetrics & Gynecology 06/04/16 Jacqui Rooney OD [address] [place] [address] Consulting Physician Optometry 10/15/16 03/26/23 Will Augustine MD Consulting Physician Neurology 04/22/16 documented as of this encounter
--- OUTSIDE RECORDS SUMMARY | 2024-07-16 12:48 | XMS_ITS | Encounter Summary ---
Author Organization [facility] Care Team Providers Care Biomass Power Plant Manager Name Role Phone Sg Richards MD Primary Care Provider [phone] Va Ferrell MD Unavailable [phone] Jacqui Rooney OD Unavailable [phone] Encounter Details Date Type Department Care Team (Latest Contact Info) Description 01/13/2020 Travel Social History Tobacco Use Types Packs/Day [...] have Coronavirus / COVID-19? No / Unsure 01/13/2020 3:17 PM CDT documented as of this encounter Plan of Treatment Not on file documented as of this encounter Visit Diagnoses Not on filedocumented in this encounter Additional Health Concerns Assessment Noted Time PHQ-9 Depression Total Score: 0 12/25/19 17 1:00 PM CDT documented as of this encounter Care Teams Biomass Power Plant Manager Relationship Specialty Start Date End Date Sg Richards MD [address] [place] [address] PCP - General Internal Medicine 03/28/15 08/12/21 Va Ferrell MD [employer] [address] [address] Consulting Physician Obstetrics & Gynecology 06/04/16 Jacqui Rooney OD [address] [place] [address] Consulting Physician Optometry 10/15/16 03/26/23 Will Augustine MD Consulting Physician Neurology 04/22/16 documented as of this encounter
--- OUTSIDE RECORDS SUMMARY | 2024-07-16 12:48 | XMS_ITS | Encounter Summary ---
Author Organization [facility] Address [address] [place] [address] Phone Care Team Providers Care School Resource Officer Name Role Phone Sg Richards MD Primary Care Provider [phone] Va Ferrell MD Unavailable [phone] Jacqui Rooney OD Unavailable [phone] Reason for Visit * Reason Comments Anxiety patient is upset bec ause she can not loose weight. Encounter Details Date Type Department Care Team (Late st Contact Info) Description 01/13/2020 3:45 PM CDT Office Visit [facility] [address] [place] [phone] Sg Richards MD [address] [place] [address] Anxiety and depression (Primary Dx) Discharge Disposition: Discharged to home [...] Sign Reading Time Taken Comments Blood Pressure 122/80 01/13/2020 3:22 PM CDT Pulse 88 01/13/2020 3:22 PM CDT Temperature 36.7 ??C (98 ??F) 01/13/2020 3:22 PM CDT Respiratory Rate 20 01/13/2020 3:22 PM CDT Oxygen Saturation 98% 01/13/2020 3:22 PM CDT Inhaled Oxygen Concentration - - Weight 110.7 kg (244 lb) 01/13/2020 3:22 PM CDT Height 165.1 cm (5' 5 ) 01/13/2020 3:22 PM CDT Body Mass Index 40.6 01/13/2020 3:22 PM CDT documented in this encounter Progress Notes * Lissett Reid, JUANCARLOS - 01/13/2020 3:45 PM CDT Kayla Avila, 44 y.o., female is here for Anxiety (patient is upset because she can not loose weight. ) Medication Refills: Patient reports/denies need for medication refills. Orders Pended: no Requested Prescriptions No prescriptions requested or ordered in this encounter Home Medications Medication Sig Start Date End Date Taking? Authorizing Provider clonazePAM (KLONOPIN) 1 MG Tablet Take 1 [...] pantoprazole (PROTONIX) 40 MG Tablet Delayed Response TK 1 T PO QD 11/24/19 ProviderDany MD primidone (MYSOLINE) 50 MG Tablet Take 75 mg by mouth nightly. Yes Dany Navarrete MD traZODone (DESYREL) 100 MG Tablet 05/26/16 Yes ProviderDany MD Medications Discontinued During This Encounter Medication Reason ??? buPROPion SR (WELLBUTRIN SR) 150 MG TABLET SR 12 HR Med List Clean Up ??? jamknayq-cltqfflzk-jccjjcweaxasrs (CORTISPORIN) [id number] Solution Therapy completed I have reviewed the home medication list with the patient and have reconciled discrepancies. The list is accurate to the best of my knowledge. Smoking Status: Social History Tobacco Use ??? Smoking status: Former Smoker Packs/day: 0.25 Types: Cigarettes Last attempt to quit: 06/10/2018 Years since quittin.5 ??? Smokeless tobacco: Never Used Substance Use Topics ??? Alcohol use: No Alcohol/week: 0.0 oz ??? Drug use: No Smoking Cessation Counseling Given: n/a Health Care Maintenance: Health Maintenance Due Topic Date Due ??? Pap Smear 1996 ??? Discussion re Starting/Frequency of Mammograms 2015 Orders Pended: n/a The following BPA's have been addressed with the patient today: Pap * Sg Richards MD - 01/13/2020 3:45 PM CDT Subjective: HPI Patient presents with increasing issues with anxiety and depression. I suspect much of this has to do with her recent weight gain. She currently takes trazodone for pain management, though the dosageis somewhat subtherapeutic for treating anxiety/depression. Review of Systems Constitutional: Negative. HENT: Negative. Eyes: Negative. Respiratory: Negative. Cardiovascular: Negative. Gastrointestinal: Negative. Endocrine: Negative. Genitourinary: Negative. Musculoskeletal: Negative. Skin: Negative. Allergic/Immunologic: Negative. Neurological: Negative. Hematological: Negative. Psychiatric/Behavioral: Positive for dysphoric mood. The patient is nervous/anxious. Objective: Physical Exam Constitutional: Appearance: She is [...] time. Psychiatric: Mood and Affect: Mood is anxious and depressed (slight). Behavior: Behavior normal. Thought Content: Thought content normal. Judgment: Judgment normal. Assessment and Plan See Diagnoses, Orders, Follow-up, and Instructions Patient will discuss with her apprentice painter hand as to whether or not she can increase the dose of trazodone. I would recommend increasing the dose to 150 mg HS. Additionally, I had a discussion with her regarding weight loss. Given her elevated BMI and chronic lack of dieting success, I recommended that she look into gastric fundoplication as a permanent solution. Instructed to check with her insurer as to her coverage. Follow-up as scheduled. I have seen and examined the patient on today's date. Documentation for this visit was completed using the assistance of a template. Everything documented in this visit was personally performed todaywith the necessary additions, deletions and changes. documented in this encounter Plan of Treatment Not on file documented as of this encounter Visit Diagnoses Diagnosis Anxiety and depression- Primary Dysthymic disorder documented in this encounter Additional Health Concerns Assessment Noted Time PHQ-9 Depression Total Score: 0 12/25/19 17 1:00 PM CDT documented as of this encounter Care Teams School Resource Officer Relationship Specialty Start Date End Date Sg Richards MD [address] [place] [address] PCP - General Internal Medicine 03/28/15 08/12/21 [place] Ferrell [place] [address] [place] [address] Consulting Physician Obstetrics & Gynecology 06/04/16 Jacqui Rooney OD [address] [place] [address] Consulting Physician Optometry 10/15/16 03/26/23 Will Augustine MD Consulting Physician Neurology 04/22/16 documented as of this encounter
--- OUTSIDE RECORDS SUMMARY | 2024-07-16 12:48 | XMS_ITS | Encounter Summary ---
Author Organization [employer] Care Team Providers Care Dough Braker Name Role Phone Sg Richards MD Primary Care Provider [phone] Va Ferrell MD Unavailable Jacqui Rooney OD Unavailable [phone] Encounter Details Date Type Department Care Team (Latest Contact Info) Description 09/14/2020 Travel Social History Tobacco Use Types Packs/Day [...] have Coronavirus / COVID-19? No / Unsure 09/14/2020 2:44 PM ROLLER MAKER documented as of this encounter Plan of Treatment Not on file documented as of this encounter Visit Diagnoses Not on filedocumented in this encounter Additional Health Concerns Assessment Noted Time PHQ-9 Depression Total Score: 0 12/25/19 17 1:00 PM CDT documented as of this encounter Care Teams Dough Braker Relationship Specialty Start Date End Date Sg Richards MD [address] [place] [address] PCP - General Internal Medicine 03/28/15 08/12/21 Va Ferrell MD [employer] [address] [address] Consulting Physician Obstetrics & Gynecology 06/04/16 Jacqui Rooney OD [address] [place] [address] Consulting Physician Optometry 10/15/16 03/26/23 Will Augustine MD Consulting Physician Neurology 04/22/16 documented as of this encounter
--- OUTSIDE RECORDS SUMMARY | 2024-07-16 12:48 | XMS_ITS | Encounter Summary ---
Author Organization [facility] Address [address] [place] [address] Phone Care Team Providers Care Credit Union Teller Name Role Phone Sg Richards MD Primary Care Provider [phone] Va Ferrell MD Unavailable [phone] Jacqui Rooney OD Unavailable [phone] Reason for Visit * Reason Onset Date Comments Fever 08/26/2019 Encounter Details Date Type Department Care Team (Late st Contact Info) Description 08/26/2019 Nurse Triage [facility] [address] [place] [address] Sg Richards MD [address] [place] [address] Fever Social History Tobacco Use Types Packs/Day Years [...] encounter Miscellaneous Notes * Telephone Encounter - Cindy Tavera RN - 08/26/2019 8:19 AM CST SITUATION: fever BACKGROUND: Symptoms started on 08/22. ASSESSMENT: Symptom Description / Location: Patient states having fever of 102 this morning. States having dry cough and chest pain with cough. States having generalized body aches. States has not eaten anything, but one cracker with her meds daily, since 08/22. States that she has not been drinking much since 08/22. States that she is urinating per normal. States that she is extremely weak. Pain (0-10): 0/10 Temp: 102 Treatment / Response: Acampo and motrin take fever down and then it comes right back. RECOMMENDATION: See care advice and disposition for [...] Patient wants to be seen Protocols used: FEVER-A-OH Scheduled patient with Nav coy at 1120. [employer] documented in this encounter Plan of Treatment Not on file documented as of this encounter Visit Diagnoses Not on filedocumented in this encounter Additional Health Concerns Assessment Noted Time PHQ-9 Depression Total Score: 0 12/25/19 17 1:00 PM CDT documented as of this encounter Care Teams Credit Union Teller Relationship Specialty Start Date End Date Sg Richards MD [address] [place] [address] PCP - General Internal Medicine 03/28/15 08/12/21 Va Ferrell MD [address] [place] [address] Consulting Physician Obstetrics & Gynecology 06/04/16 Jacqui Rooney OD [address] [place] [address] Consulting Physician Optometry 10/15/16 03/26/23 Will Augustine MD Consulting Physician Neurology 04/22/16 documented as of this encounter
--- OUTSIDE RECORDS SUMMARY | 2024-07-16 12:48 | XMS_ITS | Encounter Summary ---
Author Organization [employer] Care Team Providers Care Precision Grinder External Name Role Phone Sg Richards MD Primary Care Provider [phone] Va Ferrell MD Unavailable Jacqui Rooney OD Unavailable [phone] Encounter Details Date Type Department Care Team (Latest Contact Info) Description 09/22/2019 Travel Social History Tobacco Use Types Packs/Day [...] documented as of this encounter Care Teams Precision Grinder External Relationship Specialty Start Date End Date Sg Richards MD [address] [place] [address] PCP - General Internal Medicine 03/28/15 08/12/21 Va Ferrell MD ONE PROFESSIONAL [address] [address] Consulting Physician Obstetrics & Gynecology 06/04/16 Jacqui Rooney OD [address] [place] [address] Consulting Physician Optometry 10/15/16 03/26/23 Will Augustine MD Consulting Physician Neurology 04/22/16 documented as of this encounter
--- OUTSIDE RECORDS SUMMARY | 2024-07-16 12:48 | XMS_ITS | Encounter Summary ---
Author Organization [facility] Address [address] [place] [address] Phone Care Team Providers Care Hvac Commercial Salesperson Name Role Phone Sg Richards MD Primary Care Provider [phone] Va Ferrell MD Unavailable Jacqui Rooney OD Unavailable Reason for Visit * Reason Onset Date Comments Medication Refill 01/10/2020 Encounter Details Date Type Department Care Team (Late st Contact Info) Description 01/10/2020 Refill [facility] [place] [address] [place] [address] Sg Richards MD [address] [place] [address] Medication Refill Social History Tobacco [...] Miscellaneous Notes * Telephone Encounter - Kristi Benito, RN - 01/11/2020 1:04 PM CDT Patient was made an Extended OV for evaluation of her anxiety 01/13/20 at 3:45. * Telephone Encounter - Sg Richards MD - 01/11/2020 9:06 AM CDT This medication has never been prescribed by this office to the patient before. Who is the originalprescriber what is patient requesting the medication for? * Telephone Encounter - Andreea Kelley RN - 01/10/2020 2:13 PM CDT Requested Prescriptions Pending Prescriptions Disp Refills clonazePAM (KLONOPIN) 1 MG Tablet 60 Tab 0 Sig: Take 1 Tab by mouth 2 times daily. There is no refill protocol information for this order * Telephone Encounter - Andreea Kelley, RN - 01/10/2020 11:02 AM CDT ----- Message from Soledad Lund sent at 01/10/2020 10:29 AM CDT ----- RFC: FAX REFILL REQUEST Name of medication needed? clonazePAM (KLONOPIN) 1 MG Tablet Sig - Route: Take 1 mg by mouth 2 times daily. Pharmacy [facility] 30 or 90 day supply? 30 Provider Maurice documented in this encounter Plan of Treatment Not on file documented as of this encounter Visit Diagnoses Not on filedocumented in this encounter Additional Health Concerns Assessment Noted Time PHQ-9 Depression Total Score: 0 12/25/19 17 1:00 PM CDT documented as of this encounter Care Teams Hvac Commercial Salesperson Relationship Specialty Start Date End Date Sg Richards MD [address] [place] [address] PCP - General Internal Medicine 03/28/15 08/12/21 Va Ferrell MD ONE PROFESSIONAL [address] [address] Consulting Physician Obstetrics & Gynecology 06/04/16 Jacqui Rooney OD [address] [place] [address] Consulting Physician Optometry 10/15/16 03/26/23 Will Augustine MD Consulting Physician Neurology 04/22/16 documented as of this encounter
--- OUTSIDE RECORDS SUMMARY | 2024-07-16 12:48 | XMS_ITS | Encounter Summary ---
Author Organization [employer] Care Team Providers Care Computer Discovery Teacher Name Role Phone Sg Richards MD Primary Care Provider [phone] Va Ferrell MD Unavailable [phone] Jacqui Rooney OD Unavailable [phone] Soto Vera MD Unavailable Unavailable Encounter Details Date Type Department Care Team (Latest Contact Info) Description 01/07/2021 Travel Social History Tobacco Use Types Packs/Day [...] documented as of this encounter Care Teams Computer Discovery Teacher Relationship Specialty Start Date End Date Sg Richards MD [address] [place] [address] PCP - General Internal Medicine 03/28/15 08/12/21 Va Ferrell MD ONE PROFESSIONAL [address] [address] Consulting Physician Obstetrics & Gynecology 06/04/16 Jacqui Rooney OD [address] [place] [address] Consulting Physician Optometry 10/15/16 03/26/23 Soto Vera MD [address] [place] [address] Consulting Physician Neurology 09/28/20 03/25/23 Will Augustine MD Consulting Physician Neurology 04/22/16 documented as of this encounter
--- OUTSIDE RECORDS SUMMARY | 2024-07-16 12:48 | XMS_ITS | Encounter Summary ---
Author Organization [facility] Address [address] [place] [address] Phone Care Team Providers Care Cook Fish Eggs Name Role Phone Sg Richards MD Primary Care Provider [phone] Va Ferrell MD Unavailable Jacqui Rooney OD Unavailable Reason for Visit * Reason Comments Medication Refill Encounter Details Date Type Department Care Team (Late st Contact Info) Description 08/25/2020 Refill [facility] - Primary Care - [place] [address] [place] [address] Sg Richards MD [address] [place] [address] Medication Refill Social History Tobacco [...] Miscellaneous Notes * Telephone Encounter - Eleanor Lebron, KASSY - 09/14/2020 1:12 PM CST Office visit scheduled. N CLEANING SUPERVISOR * Telephone Encounter - Sg Richards MD - 08/27/2020 8:29 AM CABIN CLEANING SUPERVISOR Refill request approved. Please ask patient to reschedule her canceled fasting office visit from last June. N CLEANING SUPERVISOR documented in this encounter Plan of Treatment Not on file documented as of this encounter Visit Diagnoses Not on filedocumented in this encounter Additional Health Concerns Assessment Noted Time PHQ-9 Depression Total Score: 0 12/25/19 17 1:00 PM CDT documented as of this encounter Care Teams Cook Fish Eggs Relationship Specialty Start Date End Date Sg Richards MD [address] [place] [address] PCP - General Internal Medicine 03/28/15 08/12/21 Va Ferrell MD [address] [place] [address] Consulting Physician Obstetrics & Gynecology 06/04/16 Jacqui Rooney OD [address] [place] [address] Consulting Physician Optometry 10/15/16 03/26/23 Will Augustine MD Consulting Physician Neurology 04/22/16 documented as of this encounter
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
--- OUTSIDE RECORDS SUMMARY | 2024-07-16 12:52 | XMS_ITS | Encounter Summary ---
Author Organization [facility] Healthcare Address [address] [place] [place] [address] Care Team Providers Care Food Analyst Name Role Phone Davi Georges MD Primary Care Provider Reason for Visit * Neurology (Routine) - Closed Specialty Diagnoses / Procedures Referred By Suman perdue Referred To Contact Diagnoses Seizures (HCC) Procedures Ambulatory EEG -[facility] Jerry Augustine MD PhD [address] [place] [address] Phone: tel: fax: [address] [phone] Referral ID Status Reason Start Date Expiration Date Visits Re quested Visits Authorized [id number] Closed 03/25/2023 04/23/2024 1 1 Encounter Details Date Type Department Care Team (Latest Contact Info) Description 04/28/2023 11:04 AM CDT - 04/28/2023 11:59 PM CDT Hospital Encounter [facility] [address] [place] [phone] Katelynn Curry [place] Discharge Disposition: Discharge to home or self care Social History Tobacco Use Types Packs/Day Years Used Date Smoking Tobacco: Never Smokeless Tobacco: Never Comments:Smoking History Pac ks/day: 0.5 Packs Alcohol Use Standard Drinks/Week Comments Not Currently 0 (1 standard drink = 0.6 oz pur e alcohol) Comments No Sex and Gender Information Value Date Recorded Sex Assigned at Not on file Legal Sex Female 4:21 PM CDT Gender Identity Not on file Sexual Orientation Not on file documented as of this encounter Medications at Time of Discharge calcium carbonate (TUMS) 500 mg calcium (200 mg of elemental calcium) chewable tablet Take by mouth daily as needed pantoprazole DR (PROTONIX) 40 mg EC tablet 3 02/05/2019 erenumab-aooe (Aimovig Autoinjector) 140 mg/mL auto-injectorIndi cations:Intractab le chronic migraine without aura and without status migrainosus Inject 140 mg under the skin every 30 (thirty) days 1 mL 11 09/29/2022 4 gabapentin (NEURONTIN) 600 mg tablet TK 2 TS PO TID 1 03/02/2019 4 lamoTRIgine (LaMICtal) 100 mg tablet Take 4 tablets (400 mg total) by mouth 2 (two) times a day 240 tablet 11 01/06/2023 4 levETIRAcetam (KEPPRA) 1,000 mg tablet Take 2 tablets (2,000 mg total) by mouth 2 (two) times a day 120 tablet 11 01/06/2023 4 predniSONE (DELTASONE) 10 mg tablet 5 tabs PO on day 1 and decrease by 1 each day until gone. Take in AM with food. 15 tablet 03/18/2023 3 primidone (MYSOLINE) 50 mg tablet TAKE 5 TABLETS(250 MG) BY MOUTH TWICE DAILY 300 tablet 3 04/28/2023 4 rizatriptan (MAXALT) 10 mg tabletIndications :Migraine Take 1 tablet (10 mg total) by mouth once as needed for migraine May repeat in 2 hours if unresolved. Do not exceed 3 in 24 hours. 9 tablet 5 03/18/2023 3 documented as of this encounter Discharge Disposition Disposition Code Departure Means Destination Discharge to home or self care documented in this encounter Plan of Treatment Not on file documented as of this encounter Procedures Procedure Name Priority Date/Time Associated Diagnosis Comments AMBULATORY EEG Routine 04/28/2023 11:29 AM CDT Seizures (HCC) documented in this encounter Results * Ambulatory EEG -[facility] (04/28/2023 11:29 AM CDT) Anatomical Region Laterality Modality EEG Narrative 04/28/2023 5:16 PM CDT Ambulatory EEG Report Patient Name: Kayla Avila [facility] Medical Record Number (MRN): [id number] [facility] Record: [id number] Date of (): 1975 EEG Date: 04/27/2023 Ordering Provider: Jerry Augustine MD PhD CC: Davi Georges Start Time: 04/27/2023 10:38:25 AM ? End Time: 04/28/2023 11:38:38 AM Introduction: Ms. Avila is a 48 y.o. female with a history of DENNYS, GERD, epilepsy (followed by Dr Augustine), dog bite with multiple jaw surgeries and residual chronic pain, depression, and migraine, who presented with events described as staring and dizziness, concerning for seizures. ??EEG was performed to evaluate for seizures. This is a 24 channel EEG recording acquired on a MedPlexus digital ambulatory EEG acquisition system. Scalp electrodes were placed with collodion according to the international 10-20 System. The analog EEG was filtered from 1-70 Hz and digitally sampled at 200 Hz. The record was then reformatted for review in bipolar and referential montages. A patient diary and push-button event system was utilized to record patient events as needed. EEG Description: The awake background included a 9 Hz posterior rhythm which attenuated with eye opening and activity. There was occasionally admixed theta and delta range activity. During drowsiness, identified by ocular signs and alpha attenuation, there was intermittent, diffuse, asynchronous theta activity admixed with 2-4 Hz polymorphic frontotemporal delta activity. As the record progressed, stage II sleep was identified by vertex waves, sleep spindles and K-complexes. Hyperventilation and photic strobe stimulation were not performed. There were rare to occasional 3-4 Hz generalized discharges with spike-slow wave. There was a single event occurring at 1:30 PM on 04/27. The patient reported she had a seizure. There were no significant EEG changes beyond EMG and movement artifact with this event. Interpretation: The ambulatory EEG is abnormal due to 1) rare generalized epileptiform discharges primarily 3 Hz spike and wave discharges and 2) mild generalized slowing. Generalized discharges are typically seen in patients with a history of idiopathic generalized epilepsy, but focal epilepsy with rapid bisynchrony cannot be excluded / solely on the basis of EEG features. Generalized slowing indicates diffuse cerebral dysfunction as seen in metabolic, toxic, or diffuse or multifocal structural abnormalities. . There were no significant EEG changes in the noted event. By signing this report, the attending Electroencephalographer certifies that he/she personally reviewed the electrodiagnostics study and has edited this report to fully conform with his/her intent. Signing Attending: Jose Zamorano III, MD us Jerry Augustine MD PhD NEUROLOGY ORDERABLES Anusha l Result documented in this encounter Visit Diagnoses Not on filedocumented in this encounter Care Teams Food Analyst Relationship Specialty Start Date End Date Davi Georges MD [address] [place] [address] PCP - General Family Medicine 07/05/21 documented as of this encounter
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
--- OUTSIDE RECORDS SUMMARY | 2024-07-16 12:52 | XMS_ITS | Encounter Summary ---
Author Organization [facility] Healthcare Address [address] [place] [address] Care Team Providers Care Furnace Hand Name Role Phone Davi Georges MD Primary Care Provider [phone] Reason for Referral * Diagnostic Imaging (Routine) - Closed Specialty Diagnoses / Procedures Referred By Carlosac t Referred To Contact Diagnoses Excessive and frequent menstruation with regular cycle Procedures US Pelvis W Endovaginal US Transvaginal Jigna Kearney NP [address] [place] [address] DR SIRENA KHOURY [address] [place] [address] Phone: tel: fax: [address] [phone] Referral ID Status Reason Start Date Expiration Date Visits Re quested Visits Authorized [id number] Closed 09/23/2023 10/22/2024 1 1 Reason for Visit * Diagnostic Imaging (Routine) - Closed Specialty Diagnoses / Procedures Referred By Suman perdue Referred To Contact Diagnoses Excessive and frequent menstruation with regular cycle Procedures US Pelvis W Endovaginal US Transvaginal Jigna Kearney NP [address] [facility] [address] SIRENA KHOURY [address] [place] [address] Phone: tel: fax: [address] [phone] Referral ID Status Reason Start Date Expiration Date Visits Re quested Visits Authorized [id number] Closed 09/23/2023 10/22/2024 1 1 Encounter Details Date Type Department Care Team (Latest Contact Info) Description 11/09/2023 8:05 AM CDT - 11/09/2023 11:59 PM CDT Hospital Encounter [facility] [address] [place] [address] Excessive and frequent menstruation with regular cycle Discharge Disposition: Discharge to home or self [...] (PROTONIX) 40 mg EC tablet 3 02/05/2019 rizatriptan (MAXALT) 10 mg tabletIndications :Migraine Take 1 tablet (10 mg total) by mouth once as needed for migraine May repeat in 2 hours if unresolved. Do not exceed 3 in 24 hours. 9 tablet 11 06/30/2023 erenumab-aooe (Aimovig Autoinjector) 140 mg/mL auto-injectorIndi cations:Intractab le chronic migraine without aura and without status migrainosus Inject 140 mg under the skin every 30 (thirty) days 1 mL 11 09/29/2022 4 gabapentin (NEURONTIN) 600 mg tablet Take 1 tablet (600 mg total) by mouth 2 (two) times a day For pain 60 tablet 5 08/11/2023 4 lamoTRIgine (LaMICtal) 100 mg tablet Take 4 tablets (400 mg total) by mouth 2 (two) times a day 240 tablet 11 08/11/2023 4 levETIRAcetam (KEPPRA) 1,000 mg tablet Take 2 tablets (2,000 mg total) by mouth 2 (two) times a day 120 tablet 08/11/2023 4 primidone (MYSOLINE) 50 mg tablet Take 5 tablets (250 mg total) by mouth 2 (two) times a day 300 tablet 08/11/2023 4 documented as of this encounter Discharge Disposition Disposition Code Departure Means Destination Discharge to home or self care documented in this encounter Plan of Treatment Not on file documented as of this encounter Procedures Procedure Name Priority Date/Time Associated Diagnosis Comments US PELVIS W ENDOVAGINAL Schedule Routine, Read Routine (OP Routine) 11/09/2023 8:51 AM CDT Excessive and frequent menstruation with regular cycle documented in this encounter Results * US Pelvis W Endovaginal (11/09/2023 8:51 AM CDT) Anatomical Region Laterality Modality Pelvis N/A Ultrasound 11/10/2023 6:38 AM CDT Narrative 11/10/2023 6:39 AM CDT EXAM DESCRIPTION: ?? US PELVIS W ENDOVAGINAL REASON FOR STUDY: ?? N92.0, heavy frequent periods, tubal ligation. TECHNIQUE: Grayscale ultrasound of the pelvic contents was performed with ?? transabdominal and transvaginal ??transducer. ?? COMPARISON: None. FINDINGS: UTERUS: ?? The uterus is anteverted. ??The uterus is ??heterogeneous ??in echotexture and measures ??10.3 x 5.6 x 4.9 ??cm. ??Nabothian cyst is noted. ENDOMETRIUM: The endometrium measures ??0.8 cm ??in thickness. RIGHT OVARY: The right ovary measures ??1.6 x 1.9 x 2.3 ??cm. ??There is documentation of color Doppler flow in the right ovary. The right ovary appears unremarkable. LEFT OVARY: The left ovary measures ??1.7 x 2.4 x 2.7 ??cm. ??There is documentation of color Doppler flow in the left ovary. ??The left ovary appears unremarkable. PELVIC FLUID: ?? There is no evidence of free fluid in the pelvis. OTHER: ?? No other significant findings. IMPRESSION: Normal pelvic ultrasound. THIS IS AN ELECTRONICALLY VERIFIED FINAL REPORT 11/10/2023 6:39 AM - Electronically signed by ??Jonathan Tan M.D. CH: STANLEY D: ??11/10/2023 6:39 AM T: ??11/10/2023 6:39 AM Report ID: [id number] Reading Location: ??[id number] Procedure Note Jonathan Tan Jr., MD - 11/10/2023 EXAM DESCRIPTION: US PELVIS W ENDOVAGINAL REASON FOR STUDY: N92.0, heavy frequent periods, tubal ligation. TECHNIQUE: Grayscale ultrasound of the pelvic contents was performed with transabdominal and transvaginal transducer. COMPARISON: None. FINDINGS: UTERUS: The uterus is anteverted. The uterus is heterogeneous in echotexture and measures 10.3 x 5.6 x 4.9 cm. Nabothian cyst is noted. ENDOMETRIUM: The endometrium measures 0.8 cm in thickness. RIGHT OVARY: The right ovary measures 1.6 x 1.9 x 2.3 cm. There is documentation of color Doppler flow in the right ovary. The right ovary appears unremarkable. LEFT OVARY: The left ovary measures 1.7 x 2.4 x 2.7 cm. There is documentation of color Doppler flow in the left ovary. The left ovaryappears unremarkable. PELVIC FLUID: There is no evidence of free fluid in the pelvis. OTHER: No other significant findings. IMPRESSION: Normal pelvic ultrasound. THIS IS AN ELECTRONICALLY VERIFIED FINAL REPORT 11/10/2023 6:39 AM - Electronically signed by Jonathan Tan M.D. CH: STANLEY Report ID: [id number] Reading Location: [id number] us Not In File Miscellaneous IMG US PROCEDURES Anusha l Result documented in this encounter Visit Diagnoses Diagnosis Excessive and frequent menstruation with regular cycle documented in this encounter Care Teams Furnace Hand Relationship Specialty Start Date End Date Davi Georges MD [address] [place] [address] PCP - General Family Medicine 07/05/21 documented as of this encounter
--- OUTSIDE RECORDS SUMMARY | 2024-07-16 12:52 | XMS_ITS | Encounter Summary ---
Author Organization [facility] Healthcare Address [address] [place] [address] Care Team Providers Care Sports Marketing Coordinator Name Role Phone Davi Georges MD Primary Care Provider Reason for Visit * Diagnostic Imaging (Routine) - Pending Review Specialty Diagnoses / Procedures Referred By Suman perdue Referred To Contact Diagnoses Encounter for other screening for malignant neoplasm of breast Encounter for screening mammogram for malignant neoplasm of breast Procedures Screening Mammogram Bilateral W Yared Screening Mammogram Bilateral W Yared Screening Mammogram, Self [address] [address] Referral ID Status Reason Start Date Expiration Date V isits Requested Visits Authorized [id number] Pending Review 09/23/2023 10/22/2024 1 1 Encounter Details Date Type Department Care Team (Latest Contact Info) Description 11/09/2023 8:06 AM CDT - 11/09/2023 11:59 PM CDT Hospital Encounter [facility] [address] [place] [id number] Encounter for other screening for malignant neoplasm of breast; Encounter for screening mammogram for malignant neoplasm of breast Discharge Disposition: Discharge to home or self [...] Sign Reading Time Taken Comments Blood Pressure - - Pulse - - Temperature - - Respiratory Rate - - Oxygen Saturation - - Inhaled Oxygen Concentration - - Weight - - Height 163.2 cm (5' 4.25 ) 11/09/2023 9:00 AM CD T Body Mass Index - - documented in this encounter Medications at Time of Discharge [...] (two) times a day 120 tablet 11 08/11/2023 4 primidone (MYSOLINE) 50 mg tablet Take 5 tablets (250 mg total) by mouth 2 (two) times a day 300 tablet 11 08/11/2023 4 documented as of this encounter Discharge Disposition Disposition Code Departure Means Destination Discharge to home or self care documented in this encounter Plan of Treatment Not on file documented as of this encounter Procedures Procedure Name Priority Date/Time Associated Diagnosis Comments SCREENING MAMMOGRAM BILATERAL W YARED Schedule Routine, Read Routine (OP Routine) 11/09/2023 9:09 AM CDT Encounter for other screening for malignant neoplasm of breast Encounter for screening mammogram for malignant neoplasm of breast documented in this encounter Results * Screening Mammogram Bilateral W Yared (11/09/2023 9:09 AM CDT) Anatomical Region Laterality Modality Breast Bilateral Mammography 11/09/2023 9:48 AM CDT Impressions 11/09/2023 9:48 AM CDT There is no mammographic evidence of malignancy. A 1 year screening mammogram is recommended. BI-RADS: 1 - Negative. The patient has been or will be contacted. The patient will be entered into a reminder system with a target due date of 1 year for her next mammogram. Electronically signed by: Justa Vivas M.D. Narrative 11/09/2023 9:48 AM CDT EXAMINATION: SCREENING MAMMOGRAM BILATERAL W YARED ORDERING HEALTHCARE PROVIDER: SELF SCREENING MAMMOGRAM HISTORY: Routine screening mammography. COMPARISON: ??12/04/2020, 09/26/2016 TECHNIQUE: CC and MLO views of the bilateral breasts were obtained with digital technique using breast tomosynthesis with C view. Computer aided detection was utilized. FINDINGS: DENSITY: There are scattered fibroglandular elements in the bilateral breasts. BREASTS: There are no suspicious masses, suspicious calcifications, or other suspicious findings in either breast. There has been no suspicious interval change. us Self Screening Mammogram IMG MAMMO PROCEDURES Fi nal Result documented in this encounter Visit Diagnoses Diagnosis Encounter for other screening for malignant neoplasm of breast Encounter for screening mammogram for malignant neoplasm of breast documented in this encounter Care Teams Sports Marketing Coordinator Relationship Specialty Start Date End Date Davi Georges MD [address] [place] [address] PCP - General Family Medicine 07/05/21 documented as of this encounter
--- OUTSIDE RECORDS SUMMARY | 2024-07-16 12:52 | XMS_ITS | Encounter Summary ---
Author Organization [facility] Address [address] [place] [address] Phone Care Team Providers Care Family Physician Name Role Phone Davi Georges MD Primary Care Provider Encounter Details Date Type Department Care Team (Late st Contact Info) Description 03/25/2023 Telephone [facility] General Neurology [address] [facility] 6th [place] [address] [place] [address] Cindy Mancia RN Social History Tobacco Use Types Packs/Day Years [...] Miscellaneous Notes * Telephone Encounter - Cindy Mancia RN - 03/30/2023 11:48 AM CDT Andriy She went to roll picker sample 03/31 Message sent to Katarina * Telephone Encounter - Cindy Mancia RN - 03/30/2023 8:37 AM CDT Andriy Gardiner- Were you able to reach [facility] for the replacement syringe? Unfortunately, they will need to speak with you before they will dispense. Thanks and take Cindy summers Would you consider her for a sample? Thanks dk * Telephone Encounter - Cindy Mancia RN - 03/25/2023 10:23 AM CDT Andriy I should have taken it on the 3rd I was trying as I normally do in my upper part of my leg. 03/26 at 1019a Left a phone message Dr Shore I tried using my amovig shot and there is no needle so I am wondering if u need to call me in one or what I should do. I know pharmacy said they could not help me to message you because itwas open. Thank you Kalpana Bolanos [phone] Aimovig [phone] [facility]- You can call [phone], option 4 to report the malfunction and request a free replacement syringe. They will need the information below (as will we, for the event form). When were you due for the injection? Thanks and take Cindy summers Date of malfunction Exactly what happened What site you were trying to inject (leg, tummy) Date dose was due Lot number documented in this encounter Plan of Treatment Not on file documented as of this encounter Visit Diagnoses Not on filedocumented in this encounter Care Teams Family Physician Relationship Specialty Start Date [place] [address] PCP - General Family Medicine 07/05/21 documented as of this encounter
--- OUTSIDE RECORDS SUMMARY | 2024-07-16 12:52 | XMS_ITS | Encounter Summary ---
Author Organization [facility] Address [address] [place] [address] Phone Care Team Providers Care Tape Fastener Machine Operator Name Role Phone Davi Georges MD Primary Care Provider Reason for Visit * Reason Onset Date Comments Pain 10/22/2023 Encounter Details Date Type Department Care Team (Late st Contact Info) Description 10/22/2023 Telephone [facility] Epilepsy [address] [facility] 6th [place] [address] [place] [address] Jerry Augustine MD PhD [address] [place] [address] Pain Social History Tobacco Use Types Packs/Day Years [...] encounter Miscellaneous Notes * Telephone Encounter - Valery Grace, [facility] - 10/23/2023 12:47 PM CDT Spoke with Kalpana. Informed of Dr. Augustine's message and to reach out to Mone's office. She verbalized that she understands and don't believe her episodes were seizures. * Telephone Encounter - Jerry Augustine MD PhD - 10/22/2023 7:37 PM CDT She should start with Mone Pascual. Those timeframes are unlikely to be seen with seizures. She has reported facial twitching as a possible seizure, but it has not been characterized, and her EEG's are generalized which would be unlikely to cause unilateral facial twitching. One sided head pain has been captured on EEG in the past without showing up as a seizure. Trembling in one eye could be myokymia which is not related to seizures and is almost always benign. If very concerned for any prolonged episodes, ER evaluation is always an option. Will * Telephone Encounter - Valery Grace RMA - 10/22/2023 4:45 PM CDT Spoke with the patient. She reported feeling a pulse or a shock on the right side of her head and tremble her eye. She report she had two episode. Yesterday episode lasted 30 minutes and the one thismorning lasted 15 minutes. * Telephone Encounter - Valery Grace RMA - 10/22/2023 2:13 PM CDT Patient called and left a message stating she's experiencing pain on the right side of her head andher eye is twitching. She was not sure if she needed to call our office or Dr. Pascual's office. documented in this encounter Plan of Treatment Not on file documented as of this encounter Visit Diagnoses Not on filedocumented in this encounter Care Teams Tape Fastener Machine Operator Relationship Specialty Start Date End Date Davi Georges MD [address] [place] [address] PCP - General Family Medicine 07/05/21 documented as of this encounter
--- OUTSIDE RECORDS SUMMARY | 2024-07-16 12:52 | XMS_ITS | Encounter Summary ---
Author Organization [facility] Address [address] [place] [address] Phone Care Team Providers Care Radiology Transcriptionist Name Role Phone Davi Georges MD Primary Care Provider Encounter Details Date Type Department Care Team (Late st Contact Info) Description 06/19/2024 Telephone [facility] Epilepsy [address] [facility] 6th [place] [address] [place] [phone] Luna Jara MD [address] [place] [address] Social History Tobacco Use Types Packs/Day Years [...] on file documented as of this encounter Ordered Prescriptions Prescription Sig Dispense Quantity Refills Last Filled Start Date End Date lamoTRIgine (LaMICtal) 100 mg tabletIndications: Seizures (HCC) Take 4 tablets (400 mg total) by mouth 2 (two) times a day 240 tablet 11 06/19/2024 12/01/202 5 levETIRAcetam (KEPPRA) 1,000 mg tabletIndications: Seizures (HCC) Take 2 tablets (2,000 mg total) by mouth 2 (two) times a day 120 tablet 11 06/19/2024 5 documented in this encounter Miscellaneous Notes * Telephone Encounter - Jerry Augustine MD PhD - 06/20/2024 12:47 PM OPERATING TABLE ASSEMBLER Thanks. I just refilled her in 03/2024, so not sure why she needed. ATING TABLE ASSEMBLER * Telephone Encounter - Luna Jara MD - 06/19/2024 11:15 AM OPERATING TABLE ASSEMBLER Patient called requesting refill of lamotrigine and Levetiracetam. Cosigned by Jerry Augustine MD PhD at 06/20/2024 12:47 PM OPERATING TABLE ASSEMBLER ATING TABLE ASSEMBLER ATING TABLE ASSEMBLER Associated attestation - Jerry Augustine MD PhD - 06/20/2024 12:47 PM OPERATING TABLE ASSEMBLER Reviewed orders. LTG and LEV orders sent 30 days with [address] Jara. documented in this encounter Plan of Treatment Not on file documented as of this encounter Visit Diagnoses Diagnosis Seizures (HCC)- Primary Other convulsions Intractable chronic migraine without aura and without status migrainosus documented in this encounter Discontinued Medications Medication Sig Discontinue Reason Start Date End Da te lamoTRIgine (LaMICtal) 100 mg tablet Take 4 tablets (400 mg total) by mouth 2 (two) times a day Reorder 04/05/2024 06/19/2024 levETIRAcetam (KEPPRA) 1,000 mg tablet Take 2 tablets (2,000 mg total) by mouth 2 (two) times a day Reorder 04/05/2024 06/19/2024 documented as of this encounter Care Teams Radiology Transcriptionist Relationship Specialty Start Date End Date Davi Georges MD [address] [place] [address] PCP - General Family Medicine 07/05/21 documented as of this encounter
--- OUTSIDE RECORDS SUMMARY | 2024-07-16 12:52 | XMS_ITS | Referral Summary ---
Author Organization [facility] Address [address] [place] [address] Care Team Providers Care Putty Maker Name Role Phone Davi Georges MD Primary Care Provider [phone] Encounters Date Type Department Care Team Description 06/19/2024 Telephone [facility] Epilepsy [address] [facility] 6th [place] [address] [place] [address] Luna Jara MD from Last 3 Months Allergies Active Allergy Reactions Criticality Noted Date Comments Adhesive Tape-Silicones Hives Medium 07/25/2014 Erythromycin Other (See comments),Hallucinat ions Medium 01/03/2016 Reaction: Neuro problems, , Silicone Hives Medium 07/25/2014 Unclassified Drug Swelling Medium 08/13/2012 ALLERGY TO CATHETERS Medications pantoprazole DR (PROTONIX) 40 mg EC tablet 3 9 Active calcium carbonate (TUMS) 500 mg calcium (200 mg of elemental calcium) chewable tablet Take by mouth daily as needed Active rizatriptan (MAXALT) 10 mg tabletIndication s:Migraine Take 1 tablet (10 mg total) by mouth once as needed for migraine May repeat in 2 hours if unresolved. Do not exceed 3 in 24 hours. 9 tablet 11 3 Active Aimovig Autoinjector 140 mg/mL auto-injectorInd ications:Intract able chronic migraine without aura and without status migrainosus ADMINISTER 1 ML( 140 MG) UNDER THE SKIN EVERY 30 DAYS 1 mL 11 4 Active gabapentin (NEURONTIN) 600 mg tablet Take 1 tablet (600 mg total) by mouth 2 (two) times a day For pain 60 tablet 4 025 Active primidone (MYSOLINE) 50 mg tablet Take 5 tablets (250 mg total) by mouth 2 (two) times a day 300 tablet 4 025 Active levETIRAcetam (KEPPRA) 1,000 mg tabletIndication s:Seizures (HCC) Take 2 tablets (2,000 mg total) by mouth 2 (two) times a day 120 tablet 11 4 025 Active lamoTRIgine (LaMICtal) 100 mg tabletIndication s:Seizures (HCC) Take 4 tablets (400 mg total) by mouth 2 (two) times a day 240 tablet 4 025 Active lamoTRIgine (LaMICtal) 100 mg tablet Take 4 tablets (400 mg total) by mouth 2 (two) times a day 240 tablet 4 024 Discontin ued(Reord er) levETIRAcetam (KEPPRA) 1,000 mg tablet Take 2 tablets (2,000 mg total) by mouth 2 (two) times a day 120 tablet 4 024 Discontin ued(Reord er) Active Problems Problem Noted Date Diagnosed Date Intractable chronic migraine without aura and without status migrainosus 03/09/2020 Nonepileptic episode 01/09/2018 Arthritis 09/07/2017 Knee pain 09/22/2016 Overview (12/12/2016): Knee pain Current smoker 09/22/2016 Overview (12/12/2016): Smoker Obesity with body mass index 30 or greater 06/04 Overview (10/23/2016): BMI 30+ - obesity Sleep apnea 06/04/2016 Overview (10/23/2016): Sleep apnea Epilepsy 06/04/2016 Overview (10/23/2016): Epilepsy Chronic pain 01/09/2016 Gastroesophageal reflux disease 01/09/2016 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 Depression 09/24/2015 Cholecystitis, acute Elevated liver function tests Right lower quadrant abdominal pain Social History Tobacco Use Types Packs/Day Years [...] on file Sexual Orientation Not on file Last Filed Vital Signs Vital Sign Reading Time Taken Comments Blood Pressure 116/78 04/05/2024 3:47 PM CDT Pulse 76 04/05/2024 3:47 PM CDT Temperature 36.8 ??C (98.2 ??F) 06/30/2023 3:15 PM CS T Respiratory Rate 18 10/06/2021 10:38 PM CDT Oxygen Saturation 95% 06/30/2023 3:15 PM SHIRT LINE OPERATOR Inhaled Oxygen Concentration - - Weight 100.7 kg (222 lb) 04/05/2024 3:47 PM CDT Height 163.2 cm (5' 4.25 ) 04/05/2024 3:47 PM CD T Body Mass Index 37.81 04/05/2024 3:47 PM CDT Plan of Treatment Not on file Procedures Procedure Name Priority Date/Time Associated Diagnosis Comments SCREENING MAMMOGRAM BILATERAL W YARED Schedule Routine, Read Routine (OP Routine) 11/09/2023 9:09 AM CDT Encounter for other screening for malignant neoplasm of breast Encounter for screening mammogram for malignant neoplasm of breast from Last 3 Months or Most Recently Relevant to Health Maintenance Results * Screening Mammogram Bilateral W Yared [...] Mammogram IMG MAMMO PROCEDURES Fi nal Result from Last 3 Months or Most Recently Relevant to Health Maintenance Insurance MEDICARE SOLUTIONS [facility] MD[facility] HMO REF MEDICARE MEDICARE SOLUTIONS MEDICARE SOLUTIONS Care Teams Putty Maker Relationship Specialty Start Date End Date Davi Georges MD [address] [place] [id number] PCP - General Family Medicine 07/05/21
--- OUTSIDE RECORDS SUMMARY | 2024-07-16 12:52 | XMS_ITS | Encounter Summary ---
Author Organization [facility] Healthcare Address [address] [place] [address] Care Team Providers Care Glove Finisher Name Role Phone Davi Georges MD Primary Care Provider Reason for Referral * Neurology (Routine) - Closed Specialty Diagnoses / Procedures Referred By Contac t Referred To Contact Diagnoses Seizures (HCC) Procedures Ambulatory EEG -[facility] Jerry Augustine MD PhD [address] [address] Phone: tel: fax: [address] [phone] Referral ID Status Reason Start Date Expiration Date Visits Re quested Visits Authorized [id number] Closed 03/25/2023 04/23/2024 1 1 Reason for Visit * Neurology (Routine) - Closed Specialty Diagnoses / Procedures Referred By Contac t Referred To Contact Diagnoses Seizures (HCC) Procedures Ambulatory EEG -[facility] Jerry Augustine MD PhD [address] [place] [address] Phone: tel: fax: [address] [phone] Referral ID Status Reason Start Date Expiration Date Visits Re quested Visits Authorized [id number] Closed 03/25/2023 04/23/2024 1 1 Encounter Details Date Type Department Care Team (Latest Contact Info) Description 04/27/2023 9:07 AM CDT - 04/27/2023 11:59 PM CDT Hospital Encounter [facility] Neurodiagnostics [address] [place] [address] Katelynn Curry MT Seizures (HCC) Discharge Disposition: Discharge to home or self [...] 03/18/2023 3 primidone (MYSOLINE) 50 mg tablet Take 5 tablets (250 mg total) by mouth 2 (two) times a day 300 tablet 11 01/06/2023 3 rizatriptan (MAXALT) 10 mg tabletIndications :Migraine Take 1 tablet (10 mg total) by mouth once as needed for migraine May repeat in 2 hours if unresolved. Do not exceed 3 in 24 hours. 9 tablet 5 03/18/2023 3 documented as of this encounter Discharge Disposition Disposition Code Departure Means Destination Discharge to home or self care documented in this encounter Miscellaneous Notes * Result Encounter Note - Jerry Augustine MD PhD - 04/27/2023 11:59 PM CDT Please call the patient regarding her result. There were rare epileptiform discharges on the EEG which caused no reported symptoms/events. There was a single seizure reported, not sure what happened,but it was not associated with any seizure activity on the EEG, so that event was very unlikely to be an epileptic seizure. What was it? If needed, the next step will be Video/EEG to catch all event types. No change to treatment yet based on the Amb EEG. Will documented in this encounter Plan of Treatment Not on file documented as of this encounter Procedures Procedure Name Priority Date/Time Associated Diagnosis Comments AMBULATORY EEG Routine 04/28/2023 11:29 AM CDT Seizures (HCC) documented in this encounter Results * Ambulatory EEG -[facility] (04/28/2023 11:29 AM CDT) Anatomical Region Laterality Modality EEG Narrative 04/28/2023 5:16 PM CDT Ambulatory EEG Report Patient Name: Kayla Avila [facility] Medical Record Number (MRN): [id number] [facility] Record: [id number] Date of (): 1975 EEG Date: 04/27/2023 Ordering Provider: Jerry Augustine MD PhD CC: Davi Georges Cee Start Time: 04/27/2023 10:38:25 AM ? End [...] 24 channel EEG recording acquired on a [employer] digital ambulatory EEG acquisition system. Scalp electrodes [...] documented in this encounter Visit Diagnoses Diagnosis Seizures (HCC) Other convulsions documented in this encounter Care Teams Glove Finisher Relationship Specialty Start Date End Date Davi Georges MD [address] [place] [address] PCP - General Family Medicine 07/05/21 documented as of this encounter
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
--- OUTSIDE RECORDS SUMMARY | 2024-07-16 12:52 | XMS_ITS | Encounter Summary ---
Author Organization [facility] Address [address] [place] [address] Phone Care Team Providers Care Hook Puller Name Role Phone Davi Georges MD Primary Care Provider Reason for Visit * Reason Onset Date Comments Coco PEACOCK 08/29/2022 Encounter Details Date Type Department Care Team (Late st Contact Info) Description 08/29/2022 Telephone [facility] General Neurology [address] [facility] 6th [address] [place] [address] Mone Pascual PA [address] [place], [place] [id number] Coco PEACOCK Social History Tobacco Use Types Packs/Day Years [...] encounter Miscellaneous Notes * Telephone Encounter - Allie Lopez RN - 08/29/2022 10:35 AM CHUTE GREASER Received letter from [facility] that pt has been given a temp 30-day supply of medication., RIZATRIPTAN 5mg TAB. This drug is either not on the plan Drug List (formulary) or it is subject to certain limits. Initiated PA on [facility] ID: [id number] RIZATRIPTAN 5mg TAB (04/18) Submitted RESPONSE: This medication or product is on your plan's list of covered drugs. Prior authorization is not required at this time. If your pharmacy has questions regarding the processing of your prescription, please have them call the [facility] pharmacy help desk at . E GREASER documented in this encounter Plan of Treatment Not on file documented as of this encounter Visit Diagnoses Not on filedocumented in this encounter Care Teams Hook Puller Relationship Specialty Start Date End Date Davi Georges MD [address] [place] [address] PCP - General Family Medicine 07/05/21 documented as of this encounter
--- OUTSIDE RECORDS SUMMARY | 2024-07-16 12:52 | XMS_ITS | Encounter Summary ---
Author Organization [facility] Address [address] [place] [address] Phone Care Team Providers Care Private Household Worker Name Role Phone Davi Georges MD Primary Care Provider [phone] Encounter Details Date Type Department Care Team (Late st Contact Info) Description 04/30/2023 Telephone [facility] Epilepsy [address] [facility] 6th [place] [address] [place] [address] Yuly Harrington Social History Tobacco Use Types Packs/Day Years [...] encounter Miscellaneous Notes * Telephone Encounter - Yuly Harrington - 04/30/2023 8:14 AM CDT I spoke with pt and gave her Dr. Augustine's information regarding the AMB EEG and ask her to call our office for any change. * Telephone Encounter - Yuly Harrington - 04/30/2023 8:01 AM CDT ----- Message from Jerry Augustine MD PhD sent at 04/29/2023 2:17 PM CDT ----- Please call the patient regarding her result. [...] on filedocumented in this encounter Care Teams Private Household Worker Relationship Specialty Start Date End Date Davi Georges MD [address] [place] [address] PCP - General Family Medicine 07/05/21 documented as of this encounter
--- OUTSIDE RECORDS SUMMARY | 2024-07-16 12:52 | XMS_ITS | Clinical Summary ---
Author Organization [facility] Address [address] [place] [address] Care Team Providers Care Fire Sprinkler Apparatus Inspector Name Role Phone Davi Georges MD Primary Care Provider Allergies Active Allergy Reactions Criticality Noted Date [...] times a day For pain 60 tablet 11 4 025 Active primidone (MYSOLINE) 50 mg tablet Take 5 tablets (250 mg total) by mouth 2 (two) times a day 300 tablet 11 4 025 Active levETIRAcetam (KEPPRA) 1,000 mg tabletIndication s:Seizures (HCC) Take 2 tablets (2,000 mg total) by mouth 2 (two) times a day 120 tablet 11 4 025 Active lamoTRIgine (LaMICtal) 100 mg tabletIndication s:Seizures (HCC) Take 4 tablets (400 mg total) by mouth 2 (two) times a day 240 tablet 11 4 025 Active lamoTRIgine (LaMICtal) [...] function tests Right lower quadrant abdominal pain Encounters Date Type Department Care Team Description 06/19/2024 Telephone [facility] Epilepsy [address] [facility] 6th [place] [address] [place] [address] Luna Jara MD from Last 3 Months Surgical History Surgery Date Site/Laterality Comments OTHER SURGICAL HISTORY left jaw OTHER SURGICAL HISTORY left ear OTHER SURGICAL HISTORY Missed x2: D&C OTHER SURGICAL HISTORY Dog attack: Jaw surgery x 49 TUBAL LIGATION Bilateral tubal ligation OTHER SURGICAL HISTORY Abnormal pap - 'precancer cells': Cryoablation Medical History Medical History Date Comments Hx Other Medical heart attack; C omments: [facility] 02/14/2015 - Hypertension Hypertension Seizure disorder (CMS/HCC) (HCC) Seizure disorder Hx Other Medical back pain; Comm ents: S 02/14/2015 - Depression Depression Hx Other Medical Missed x2; Comments: [facility] 06/13/2016 - Hx Other Medical Dog attack; Com ments: RED 06/13/2016 - Hx Other Medical Abnormal pap - 'precancer cells'; Comments: [facility] 06/13/2016 - Hx Other Medical 2002 Left titan ium joint 2002; Comments: [facility] 09/23/2016 - Hx Other Medical 2010 Left ear c yst.; Comments: [facility] 09/23/2016 - Family History Medical History Relation Name Comments Heart attack Maternal Grandfather Myocard ial infarction; Seizures Maternal Grandmother Heart disease Other 1 Family history of heart problems; Cancer Other 2 Family history of cancer; Diabetes Other 3 Family history of diabetes; Lung disease Other 4 Family history of lung problems; Arthritis Other 5 Family history of arthritis; Other Other 6 Family history of htn; Stroke Other 7 Family history of Stroke; Diabetes Other 8 Family history of Diabetes mellitus; RED 06/13/2016 - Mother, father Hypertension Other 9 Family history of Hypertension; RED 06/13/2016 - Mother, father Other Other 10 Family history of arthritis.; Leukemia Paternal Grandfather Leukemi a; Breast cancer Paternal Grandmother Cancer , breast; Ovarian cancer Neg Hx Thyroid cancer Neg Hx Relation Name Status Comments Maternal Grandfather Maternal Grandmother Other 1 Other 2 Other 3 Other 4 Other 5 Other 6 Other 7 Other 8 Other 9 Other 10 Paternal Grandfather Paternal Grandmother Social History Tobacco Use Types Packs/Day Years [...] on file Sexual Orientation Not on file Obstetrics History Para Term AB IAB SAB Ectopic Multiple Livin g Live Births 1 1 1 Date Outcome GA Total Labor Labor//3rd Weight Sex Type Anes PTL Briana A1 A5 Name Clin Term Last Filed Vital Signs Vital Sign Reading Time Taken Comments Blood Pressure 116/78 04/05/2024 3:47 PM CDT Pulse 76 04/05/2024 3:47 PM CDT Temperature 36.8 ??C (98.2 ??F) 06/30/2023 3:15 PM CS T Respiratory Rate 18 10/06/2021 10:38 PM CDT Oxygen Saturation 95% 06/30/2023 3:15 PM CONTROL ELECTRICIAN Inhaled Oxygen Concentration - - Weight 100.7 kg (222 lb) 04/05/2024 3:47 PM CDT Height 163.2 cm (5' 4.25 ) 04/05/2024 3:47 PM CD T Body Mass Index 37.81 04/05/2024 3:47 PM CDT Plan of Treatment Health Maintenance Due Date Last Done Comments Cervical Cancer Screening 1975 Colon Cancer Screening-Colonoscopy 1975 Depression Screening 1975 Hepatitis C Screening 1975 Hepatitis B Screening 1993 Regular Well Visit/Exam 18-64 1993 Influenza Vaccine (#1) 2024 Breast Cancer Screening-Mammogram 11/08/2024 11/09/2023, 12/04/2020 DTaP/Tdap/Td Vaccine (2 - Td or Tdap) 07/09/2025 07/09/2015 Pneumococcal vaccine <65 Aged Out 09/08/2017 No longer eligible based on patient's age to complete this topic Procedures Procedure Name Priority Date/Time Associated Diagnosis [...] Relevant to Health Maintenance Insurance MEDICARE SOLUTIONS IDPA [facility] MDCR HMO REF MEDICARE MEDICARE SOLUTIONS MEDICARE SOLUTIONS Care Teams Fire Sprinkler Apparatus Inspector Relationship Specialty Start Date End Date Davi Georges MD [address] [place] [address] [place] [address] PCP - General Family Medicine 07/05/21
--- OUTSIDE RECORDS SUMMARY | 2024-07-16 12:52 | XMS_ITS | Encounter Summary ---
Author Organization [facility] Address [address] [place] [address] Phone Care Team Providers Care Bakery Associate Name Role Phone Davi Georges MD Primary Care Provider Encounter Details Date Type Department Care Team (Late st Contact Info) Description 08/26/2022 Telephone [facility] General Neurology [address] [facility] 6th [place] [address] [place] [address] Cindy Mancia RN Social History [...] Telephone Encounter - Cindy Mancia RN - 08/26/2022 12:30 PM UNDERTAKER ASSISTANT Fyi Alert from [facility], re triptan use and CAD. I called pt and she denied any cardiac issues. RTAKER ASSISTANT documented in this encounter Plan of Treatment Not on file documented as of this encounter Visit Diagnoses Not on filedocumented in this encounter Care Teams Bakery Associate Relationship Specialty Start Date End Date Davi Georges MD [address] [place] [address] PCP - General Family Medicine 07/05/21 documented as of this encounter
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
--- OUTSIDE RECORDS SUMMARY | 2024-07-16 12:52 | XMS_ITS | Encounter Summary ---
Author Organization [facility] Address [address] [place] [address] Phone Care Team Providers Care Blanchard Grinder Operator Name Role Phone Davi Georges MD Primary Care Provider Reason for Visit * Reason Comments Follow-up Migraine Encounter Details Date Type Department Care Team (Late st Contact Info) Description 03/18/2023 12:00 PM CDT Office Visit [facility] General Neurology [address] [place] [address] 6th [address] [place] [address] Mone Pascual PA [address] [place], [place] [id number] Intractable chronic migraine without aura and without [...] Sign Reading Time Taken Comments Blood Pressure 113/79 03/18/2023 11:54 AM CDT Pulse 81 03/18/2023 11:54 AM CDT Temperature 36.3 ??C (97.3 ??F) 03/18/2023 11:54 AM C DT Respiratory Rate - - Oxygen Saturation 97% 03/18/2023 11:54 AM CDT Inhaled Oxygen Concentration - - Weight 94.6 kg (208 lb 8 oz) 03/18/2023 11:54 AM CDT Height 162.6 cm (5' 4 ) 03/18/2023 11:54 AM CDT Body Mass Index 35.79 03/18/2023 11:54 AM CDT documented in this encounter Ordered Prescriptions Prescription Sig Dispense Quantity Refills Last Filled Start Date End Date rizatriptan (MAXALT) 10 mg tabletIndications: Migraine Take 1 tablet (10 mg total) by mouth once as needed for migraine May repeat in 2 hours if unresolved. Do not exceed 3 in 24 hours. 9 tablet 5 03/18/2023 3 predniSONE (DELTASONE) 10 mg tablet 5 tabs PO on day 1 and decrease by 1 each day until gone. Take in AM with food. 15 tablet 03/18/2023 3 documented in this encounter Progress Notes * Mone Pascual PA - 03/18/2023 12:00 PM CDT Patient Name: AMITA SIMPSON Medical Record Number (MRN): [id number] Date of (): 1975 Encounter Date: 03/18/2023 Chief Complaint Amita Simpson is a 47 y.o. female with hx of DENNYS, GERD, epilepsy (followed by Dr Augustine), dog bite with multiple jaw surgeries and residual chronic pain, depression, seen today for Follow-up and Migraine. She came accompanied by her . HPI She was last seen in September. She [...] stop taking it abruptly because her pain ingt physician retired and the other physician in the practice was not willing to continue managing Rx. She otherwise denied any medication changes. I then [facility] and saw she was seen by [...] total) by mouth 2 (two) times a [id number] tablet [address] (PROTONIX) 40 mg EC tablet TK 1 T PO D 3 primidone (MYSOLINE) 50 mg tablet Take 5 tablets (250 mg total) by mouth 2 (two) times a day 300 tablet 11 [DISCONTINUED] rizatriptan (MAXALT) 10 mg tablet Take 1 tablet (10 mg total) by mouth once as needed for migraine May repeat in 2 hours if unresolved. Do not exceed 3 in 24 hours. 9 tablet 5 No current facility-administered medications on file prior [...] Depression HX OTHER MEDICAL heart attack; Comments: [facility] 02/14/2015 - HX OTHER MEDICAL back pain; Comments: [facility] 02/14/2015 - HX OTHER MEDICAL Missed x2; Comments: [facility] 06/13/2016 - HX OTHER MEDICAL Dog attack; Comments: [facility] 06/13/2016 - HX OTHER MEDICAL Abnormal pap - 'precancer cells'; Comments: [facility] 06/13/2016 - HX OTHER MEDICAL 2002 Left [...] Narrative Not on file Vital Signs Vitals: 03/18/23 1154 BP: 113/79 BP Location: Left arm Patient Position: Sitting Pulse: 81 Temp: 36.3 ??C (97.3 ??F) TempSrc: Temporal SpO2: 97% Weight: 94.6 kg (208 lb 8 oz) Height: 162.6 cm (5' 4 ) Review [...] presented today for chronic migraine follow up. Her migraines are well controlled on Aimovig 140 mg. She was previously having only a couple migraines per month, which she was able to manage with rizatriptan p.r.n.. In the last 2 months, she has been experiencing near daily migraines,requiring frequent use of rizatriptan and [id number] NSAIDs. She initially denied any recent medication changes, but after further discussion, she noted abrupt discontinuation of daily hydrocodone use and lamotrigine dose was increased in December. Timeline is somewhat unclear, as she reports stopping hydrocodone in December and beginning to have daily headaches and seizures around that time, but after reviewing her records, she was evaluated by Dr Augustine on 01/16/23 with reports of increased seizures at that time and his notes indicate she had stopped hydrocodone approximately 2 months prior to that visit. We also discussed the possibility of lamotrigine causing increased headaches. I suspect she may also be experiencing medication overuse headaches from frequent use of abortive medications. Tima offered a prednisone taper to try to break her current headache cycle and advised her to limituse of rizatriptan and [id number]-[id number] analgesics. She will continue Aimovig, which has been efficacious and well tolerated thus far. I have asked her to follow-up with Dr. Augustine given her increase inseizure frequency. All of their questions were answered and I think they have good understanding ofwhat we discussed. I spent a total of 34 [id number]-[id number] minutes of which more than 50% of visit spent counseling and coordinating care. In addition to the time spent during the session with the patient, I spent 3 minutespreparing to see the patient, 4 minutes documenting clinical information and ordering tests and medications. Total time spend on encounter on the day of the visit: 41 minutes. Return in about 3 months (around 06/18/2023). Future Appointments Date Time Provider Department Center 04/14/2023 1:30 PM Jerry Augustine MD PhD EPI [facility] 6C NL 06/30/2023 3:30 PM Mone Pascual PA GEN CTR 40 NL 08/11/2023 4:00 PM Fawn, Jerry Solis MD PhD EPI [facility] 6C [...] Discontinue Reason Start Date End Da te rizatriptan (MAXALT) 10 mg tabletIndications:Migra ine Take 1 tablet (10 mg total) by mouth once as needed for migraine May repeat in 2 hours if unresolved. Do not exceed 3 in 24 hours. Reorder 09/29/2022 03/18/2023 documented as of this encounter Care Teams Blanchard Grinder Operator Relationship Specialty Start Date End Date Davi Georges MD [address] [place] [address] PCP - General Family Medicine 07/05/21 documented as of this encounter
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
--- OUTSIDE RECORDS SUMMARY | 2024-07-16 12:52 | XMS_ITS | Encounter Summary ---
Author Organization [facility] Address [address] [place] [address] Phone Care Team Providers Care Business Office Assistant Name Role Phone Davi Georges MD Primary Care Provider Encounter Details Date Type Department Care Team (Late st Contact Info) Description 08/11/2023 4:00 PM HUMAN GEOGRAPHY FACULTY MEMBER Office Visit [facility] Epilepsy [address] [facility] 6th [place] [address] [place] [address] Jerry Augustine MD PhD [address] [place] [address] Other generalized epilepsy, intractable, 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) Social History Tobacco Use [...] Sign Reading Time Taken Comments Blood Pressure 105/74 08/11/2023 3:55 PM HUMAN GEOGRAPHY FACULTY MEMBER Pulse 92 08/11/2023 3:55 PM HUMAN GEOGRAPHY FACULTY MEMBER Temperature - - Respiratory Rate - - Oxygen Saturation - - Inhaled Oxygen Concentration - - Weight 100.7 kg (222 lb) 08/11/2023 3:55 PM HUMAN GEOGRAPHY FACULTY MEMBER Height 162.6 cm (5' 4 ) 08/11/2023 3:55 PM HUMAN GEOGRAPHY FACULTY MEMBER Body Mass Index 38.11 08/11/2023 3:55 PM HUMAN GEOGRAPHY FACULTY MEMBER documented in this encounter Patient Instructions * Patient Instructions* Jerry Augustine MD PhD - 08/11/2023 4:00 PM HUMAN GEOGRAPHY FACULTY MEMBER The Ambulatory EEG captured a typical event which was not an epileptic seizure. The most likely explanation for your events is either migraine-related phenomena or non-epileptic events. To investigate this fully, we would need to capture events during Video/EEG (an up to 1 week test in the hospital). In the meantime, if you think you might benefit from learning more about non-epileptic events and their treatment with talking therapy, I have provided the following resources: Non-epileptic Events Other names include: Psychogenic Nonepileptic Seizures (PNES) - will see in medical literature (may be evolving to PNEE) Non-epileptic attacks Functional Seizures Pseudoseizures - an old term that many doctors have stopped using (I don't like it) Web-based Resources: www.neurosymptoms.org Go to symptoms and click Functional (Dissociative) Seizures Two from the [place] (also linked from the neurosymptoms.org page): www.nonepilepticattacks.info www.nonepilepticattackdisorder.org.uk Finding a talking therapist: Talk with your PMD who may know someone in your local network Talke to your insurance company to find someone in-network [email or web address] (can enter your ZIP code and choose your insurance, cognitive behavioral therapy (CBT), etc to limit your search) N GEOGRAPHY FACULTY MEMBER documented in this encounter Ordered Prescriptions Prescription Sig Dispense Quantity Refills Last Filled Start Date End Date primidone (MYSOLINE) 50 mg tablet Take 5 tablets (250 mg total) by mouth 2 (two) times a day 300 tablet 11 08/11/2023 4 levETIRAcetam (KEPPRA) 1,000 mg tablet Take 2 tablets (2,000 mg total) by mouth 2 (two) times a day 120 tablet 11 08/11/2023 4 lamoTRIgine (LaMICtal) 100 mg tablet Take 4 tablets (400 mg total) by mouth 2 (two) times a day 240 tablet 11 08/11/2023 4 gabapentin (NEURONTIN) 600 mg tablet Take 1 tablet (600 mg total) by mouth 2 (two) times a day For pain 60 tablet 5 08/11/2023 4 documented in this encounter Progress Notes * Jerry Augustine MD PhD - 08/11/2023 4:00 PM CST Name: Kayla Avila Date of : 1975 PCP: Davi Georges MD Date: 08/11/2023 Provider: Jerry Augustine MD PhD Chief Complaint: [...] relationship with her with both involved in [employer] study and being prayer warriors. 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 Her mouth was wired shut for months. Ertapenem/infection likely triggered a seizure. She related that a friend she knew had VNS implanted and later had to be in a snf, so she is leery of VNS. 2018 [...] about talking to a counselor. I provided www.psychologySpeechVive.MAPPING as well as the names and numbers for 3 of counselors in [place], [place]. We discussed that she was still [...] note. She thought counseling services through her confucianist might be a good idea. She agreed to increase PRM by 50 mg weekly to 250 mg bid. We discussed that for seizures PRM may be dosed typically 750-1500 mg per day, possibly as high as 2000 mg per day. We discussed that her situation (unclear etiology of all events with a past event on Amb EEG with no EEG correlate, multiple MICROFILM PROCESSOR active medications including seizure medications and pain [...] in the setting of stress. Afterwatching a [employer] competition, she had repetitive jerks and twitches [...] Vitamin D. She had an [facility]gery at [facility] to mobilize her jaw. She was [...] I sent CBC, CMP,and Vitamin D to [facility]. -01/06/23, she and her reported events of [...] long duration EEG characterization, and they agreed. -She has been on Valium 5 mg [...] LTG, TPM, ZNS, or Onfi at the [facility]. -She is currently on LEV 2000 mg bid (no side effects), LTG 350 mg bid (no side effects), and PRM 250 mg bid (no side effects). She is also on GBT 1200 mg bid for pain (no side effects). -Ambulatory EEG 05/27/16 at [facility] revealed occasional poorly formed <1 second generalized discharges consistent with a well-controlled generalized epilepsy and an event with dizziness/head pain without EEG correlate (report personally reviewed). -48 hour Ambulatory EEG at [facility] (Dr. Ray) revealed 4 Hz generalized spike and wave discharges in short runs. (report personally reviewed). -Brain MRI 01/26/16 at [facility] which revealed a normal study. (report and [...] and plastic surgery. Interval History Last visit 04/14/23, she reported 2-3 events per day consisting of staring off and coarse movements at the neck and trunk lasting a few minutes, preceded by dizziness, and followed by somnolence and sleeping for several hours. 01/2023, she stopped her terminal superintendent hydrocodone which was about the same time as the increase in event frequency. It was decided that we would not make any treatment changes until we characterized her events with long duration EEG. Based on phone calls prior to the appointment, an Ambulatory EEG had already been ordered and was scheduled for 04/27/23. Since last visit, she followed with Mone Pascual for headaches. Amb EEG 04/27- 04/28/23 at [facility] revealed 1) rare generalized epileptiform discharges, primarily 3 Hz spike and wave discharges, and 2) mild generalized slowing. A single reported event (described by the patient in the diary as a seizure)had no significant EEG correlate. (report personally reviewed) The patient was informed of the findings and that Video/EEG characterization could be the next step if events persist. Today she reports that typical events have reduced to weekly. She denied side effects. Stressors have improved, and her headaches have been better managed. She endorsed that the event captured by AmbEEG was typical, and we discussed that it was not an epileptic seizure with migraine-related phenomena and non- epileptic events on the differential. We discussed Video/EEG characterization, and she was not immediately interested, though her was. I told her as long as she was still having events, she could contact me to have the testing ordered to guide treatment. In the meantime, I went over PNES and its treatment and provided information for her to look over in the AVS. I also recommended that she continue to work with her other physicians treating her headaches. I refilled her ASMs unchanged. The doctor refilling her GBT for pain left, so I agreed to refill it for 6 months, givingher time to meet with her PMD to discuss taking it over as it is for pain and not seizures. ALLERGIES Kayla is allergic to adhesive tape-silicones, erythromycin, silicone, and unclassified drug. Allergies Allergen Reactions Adhesive Tape-Silicones Hives Erythromycin Other (See comments) and Hallucinations Reaction: Neuro problems, , Silicone Hives Unclassified Drug Swelling ALLERGY TO CATHETERS MEDICATIONS She has a current medication list which includes the following prescription(s): calcium carbonate, aimovig autoinjector, pantoprazole dr, rizatriptan, gabapentin, lamotrigine, levetiracetam, and primidone. Current Outpatient Medications Medication Sig Dispense Refill lamoTRIgine (LaMICtal) 100 mg tablet Take 3.5 tablets (350 mg total) by mouth 2 (two) times a day 210 tablet 0 levETIRAcetam (KEPPRA) 1,000 mg tablet Take 2 tablets (2,000 mg total) by mouth 2 (two) times a gvt800 tablet 2 primidone (MYSOLINE) 50 mg tablet Take 1.5 tablets (75 mg total) by mouth nightly 45 tablet 0 No current facility-administered medications for this visit. ACTIVE PROBLEMS Problem List Neuro Epilepsy (HCC) - Primary (Chronic) Overview Epilepsy Relevant Medications gabapentin (NEURONTIN) 600 mg tablet lamoTRIgine (LaMICtal) 100 mg tablet levETIRAcetam (KEPPRA) 1,000 mg tablet primidone (MYSOLINE) 50 mg tablet PMH Kayla has a past medical history of Depression, OTHER MEDICAL, OTHER MEDICAL, OTHER MEDICAL, OTHER MEDICAL, OTHER MEDICAL, OTHER MEDICAL, OTHER MEDICAL, Hypertension, and Seizure disorder (CMS/HCC) ([facility]). PSH She has a past surgical history that includes Other surgical history; Other surgical history; Othersurgical history; Other surgical history; Tubal ligation; and Other surgical history. SOCIAL HISTORY The patient is and lives with her in [place], [place]. 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 She does not drive. Her works for [employer] [facility] [employer]. FAMILY HISTORY There was family history of epilepsy. ROS Our standard office review of systems form was both reviewed and confirmed with the patient. All ofthe pertinent positives and negatives were mentioned in the History of Presenting Illness and here:headaches and somatic pains. All other systems were negative. VITAL SIGNS Vitals BP 105/74 (BP Location: Left arm, Patient Position: Sitting) Pulse 92 Ht 162.6 cm (5' 4 ) Wt 100.7 kg (222 lb) BMI 38.11 kg/m?? Physical Exam General: The patient appeared [...] Facial strength was normal and mildly asymmetric due to physical limitations from jaw injury and repair. Facial expression was [...] duration EEG characterization, and they agreed. She called 03/18/23 reporting increased events, and an Amb EEG was ordered, scheduled for 04/27/23. 04/14/23, she described 2-3 events per day consisting of staring off and coarse movements at the neck and trunk lasting for about a few minutes, preceded by dizziness, and followed by somnolence and sleeping for several hours. In 01/2023, she stopped her terminal superintendent hydrocodone which about the same time as the increase in seizure frequency. It was decided that we would not make any treatment changes until we characterized her events with long duration EEG. Amb EEG 04/27-04/28/23 at [facility] revealed 1) rare generalized epileptiform discharges, primarily 3 Hz spike and wave discharges, and 2) mild generalized slowing. A single reported event (described by thepatient in the diary as a seizure) had no significant EEG correlate. (report personally reviewed) The patient was informed of the findings and that Video/EEG characterization could be the next step if events persist. Today she reports that typical events have reduced to weekly. She denied side effects. Stressors have improved, and her headaches have been better managed. She endorsed that the event captured by AmbEEG was typical, and we discussed that it was not an epileptic seizure with migraine-related phenomena (at least for the staring off and feeling tired portions) and non-epileptic events on the differential. We discussed Video/EEG characterization, and she was not immediately interested, though her was. I told her as long as she was still having events, she could contact me to have the testing ordered to guide treatment. In the meantime, I went over PNES and its treatment and provided inf ormation for her to look over in the [...] it is for pain and not seizures. She has had a tubal ligation. Plan 1. Continue LTG 400 mg BID, PRM 250 mg BID, LEV 2000 mg BID. 2. Typical event on Amb EEG was not an epileptic seizure. Video/EEG characterization offered to fully investigate events and guide treatment. Information about PNES provided. 3. Temporarily refilled GBT for pain until she can see her PMD. Use cautiously as higher doses havebeen associated with worsened seizures in the past. 4. PMD to address mood. 5. F/U ~6 months. Call as needed. N GEOGRAPHY FACULTY MEMBER documented in this encounter Plan of Treatment Not on file documented as of this encounter Visit Diagnoses Diagnosis Other generalized epilepsy, intractable, without status epilepticus (HCC)- Primary documented in this encounter Discontinued Medications Medication Sig Discontinue Reason Start Date End Da te gabapentin (NEURONTIN) 600 mg tablet TK 2 TS PO TID Reorder 03/02/2019 08/11/2023 lamoTRIgine (LaMICtal) 100 mg tablet Take 4 tablets (400 mg total) by mouth 2 (two) times a day Reorder 01/06/2023 08/11/2023 levETIRAcetam (KEPPRA) 1,000 mg tablet Take 2 tablets (2,000 mg total) by mouth 2 (two) times a day Reorder 01/06/2023 08/11/2023 primidone (MYSOLINE) 50 mg tablet TAKE 5 TABLETS(250 MG) BY MOUTH TWICE DAILY Reorder 07/29/2023 08/11/2023 documented as of this encounter Care Teams Business Office Assistant Relationship Specialty Start Date End Date Davi Georges MD [address] [place] [address] PCP - General Family Medicine 07/05/21 documented as of this encounter
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
--- OUTSIDE RECORDS SUMMARY | 2024-07-16 12:53 | XMS_ITS | Encounter Summary ---
Author Organization [facility] Address [address] [place] [address] Phone Care Team Providers Care Adjunct Sociology Professor Name Role Phone Davi Georges MD Primary Care Provider [phone] Reason for Visit * Reason Comments Follow-up Migraine * Consultation (Routine) - Closed Specialty Diagnoses / Procedures Referred By Contelif t Referred To Contact Neurology Diagnoses Intractable chronic migraine without aura and without status migrainosus Davi Georges MD [address] [place] [address] [place] [address] Phone: tel: fax: [facility] (All Locations) Referral ID Status Reason Start Date Expiration Date V isits Requested Visits Authorized [id number] Closed Specialty Services Required 09/02/2021 10/02/2022 1 1 Encounter Details Date Type Department Care Team (Late st Contact Info) Description 09/18/2021 3:00 PM AUTOMOTIVE LOT ATTENDANT Office Visit [facility] General Neurology [address] 6th [address] [place] [address] Mone Pascual PA [address] [place] [address] Intractable chronic migraine without aura and without [...] Sign Reading Time Taken Comments Blood Pressure 114/61 09/18/2021 2:38 PM AUTOMOTIVE LOT ATTENDANT Pulse 85 09/18/2021 2:38 PM AUTOMOTIVE LOT ATTENDANT Temperature 35.9 ??C (96.7 ??F) 09/18/2021 2:38 PM CS T Respiratory Rate - - Oxygen Saturation 97% 09/18/2021 2:38 PM AUTOMOTIVE LOT ATTENDANT Inhaled Oxygen Concentration - - Weight 107.5 kg (237 lb) 09/18/2021 2:38 PM AUTOMOTIVE LOT ATTENDANT Height 162.6 cm (5' 4 ) 09/18/2021 2:38 PM AUTOMOTIVE LOT ATTENDANT Body Mass Index 40.68 09/18/2021 2:38 PM AUTOMOTIVE LOT ATTENDANT documented in this encounter Ordered Prescriptions Prescription Sig Dispense Quantity Refills Last Filled Start Date End Date SUMAtriptan (IMITREX) 50 mg tabletIndications: Migraine Take 1 tablet (50 mg total) by mouth once as needed for migraine (headache) May repeat one time after 2 hours if needed. 9 tablet 5 09/18/2021 2 erenumab-aooe (Aimovig Autoinjector) 140 mg/mL auto-injector Inject 140 mg under the skin every 30 (thirty) days 1 mL 11 09/18/2021 3 documented in this encounter Progress Notes * Mone Pascual PA - 09/18/2021 3:00 PM CST Patient Name: AMITA SIMPSON Medical Record Number (MRN): [id number] Date of (): 1975 Encounter Date: 09/18/2021 Chief Complaint Amita Simpson is a 46 y.o. female with hx of DENNYS, GERD, epilepsy (followed by Dr Augustine), dog bite with multiple jaw surgeries and residual chronic pain, depression, seen today for Follow-up and Migraine. She came accompanied by her who assists in providing the history. HPI She was last seen in December 2020 and continued on Aimovig 70mg. She presents today because headaches have increased in frequency. Aimovig is wearing off 2 weeks early. She has only 1 or 2 migraines in the first 2 weeks, then near daily headaches in the last 2 weeks. They are unchanged in presentation. They are frontal throbbing pain with photo/pohnophobia. She denies n/v or aura. She treats with otc analgesic with minimal relief and goes to bed. She has never tried triptans. She tried Ubrelvy sample and it worked well. She has also experienced an increase in seizures in the last few months. She describes them as dizzy spells and feeling not all there. There is slurred speech with these events. She had follow up with Dr Augustine in June and they discussed consideration of vEEG for better evaluation of these events. She is currently on Lamotrigine, Levetiracetam, Gabapentin, Primidone. Past meds tried: Bupropion Vimpat Aptiom Allergies Allergen Reactions ??? Adhesive Tape-Silicones Hives ??? Erythromycin Other (See comments) and Hallucinations Reaction: Neuro problems, , ??? Silicone Hives ??? Unclassified Drug Swelling ALLERGY TO CATHETERS Current Outpatient Medications on File Prior to Visit Medication Sig Dispense Refill ??? calcium carbonate (TUMS) 500 mg calcium (200 mg of elemental calcium) chewable tablet Take by mouth daily as needed ??? gabapentin (NEURONTIN) 600 mg tablet TK 2 TS PO TID 1 ??? HYDROcodone-acetaminophen (NORCO) 5-325 mg per tablet TK 1 T PO Q 6 H PRN 0 ??? lamoTRIgine (LaMICtal) 100 mg tablet Take 3.5 tablets (350 mg total) by mouth 2 (two) times a day 210 tablet 11 ??? levETIRAcetam (KEPPRA) 1,000 mg tablet Take 2 tablets (2,000 mg total) by mouth 2 (two) times aday 120 tablet 11 ??? pantoprazole DR (PROTONIX) 40 mg EC tablet TK 1 T PO D 3 ??? primidone (MYSOLINE) 50 mg tablet Take 5 tablets (250 mg total) by mouth 2 (two) times a day 300 tablet 11 ??? traZODone (DESYREL) 100 mg tablet ??? [DISCONTINUED] erenumab-aooe (AIMOVIG) 70 mg/mL auto-injector subcutaneous injection Inject 1 mL (70 mg total) under the skin every 30 (thirty) days 1 Syringe 11 ??? ibuprofen (ADVIL,MOTRIN) 800 mg tablet Take 800 mg by mouth every 8 (eight) hours (Patient not taking: Reported on 09/18/2021) ??? [DISCONTINUED] amoxicillin-clavulanate (AUGMENTIN) 875-125 mg per tablet Take 1 tablet by mouthevery 12 (twelve) hours (Patient not taking: Reported on 09/18/2021) 14 tablet 0 ??? [DISCONTINUED] benzonatate (TESSALON) 100 mg capsule Take 1 capsule (100 mg total) by mouth every 8 (eight) hours (Patient not taking: Reported on 09/18/2021) 21 capsule 0 No current facility-administered medications on file prior to visit. Patient Active Problem List Diagnosis ??? Obesity with body mass index 30 or greater ??? Sleep apnea ??? Epilepsy (HCC) ??? Knee pain ??? Current smoker ??? Arthritis ??? Chronic pain ??? Depression ??? Gastroesophageal reflux disease ??? Juvenile myoclonic epilepsy (CMS/HCC) (HCC) ??? Seizures (CMS/HCC) (HCC) ??? Cholecystitis, acute ??? Elevated liver function tests ??? Right lower quadrant abdominal pain ??? Intractable chronic migraine without aura and without status migrainosus Past Medical History: Diagnosis Date ??? Depression Depression ??? HX OTHER MEDICAL heart attack; Comments: S 02/14/2015 - ??? HX OTHER MEDICAL back pain; Comments: S 02/14/2015 - ??? HX OTHER MEDICAL Missed x2; Comments: [facility] 06/13/2016 - ??? HX OTHER MEDICAL Dog attack; Comments: [facility] 06/13/2016 - ??? HX OTHER MEDICAL Abnormal pap - 'precancer cells'; Comments: [facility] 06/13/2016 - ??? HX OTHER MEDICAL 2002 Left titanium joint 2003; Comments: KAZ 09/23/2016 - ??? HX OTHER MEDICAL 2010 Left ear cyst.; Comments: [facility]AZ 09/23/2016 - ??? Hypertension Hypertension ??? Seizure disorder (CMS/HCC) (HCC) Seizure disorder Past Surgical History: Procedure Laterality Date ??? OTHER SURGICAL HISTORY left jaw ??? OTHER SURGICAL HISTORY left ear ??? OTHER SURGICAL HISTORY Missed x2: D&C ??? OTHER SURGICAL HISTORY Dog attack: Jaw surgery x 49 ??? OTHER SURGICAL HISTORY Abnormal pap - 'precancer cells': Cryoablation ??? TUBAL LIGATION Bilateral tubal ligation Family History Problem Relation Age of Onset ??? Heart disease Other Family history of heart problems; ??? Cancer Other Family history of cancer; ??? Diabetes Other Family history of diabetes; ??? Lung disease Other Family history of lung problems; ??? Arthritis Other Family history of arthritis; ??? Other Other Family history of htn; ??? Stroke Other Family history of Stroke; ??? Leukemia Paternal Grandfather Leukemia; ??? Breast cancer Paternal Grandmother Cancer, breast; ??? Heart attack Maternal Grandfather Myocardial infarction; ??? Diabetes Other Family history of Diabetes mellitus; [facility] 06/13/2016 - Mother, father ??? Hypertension Other Family history of Hypertension; [facility] 06/13/2016 - Mother, father ??? Other Other Family history of arthritis.; ??? Seizures Maternal Grandmother Social History Socioeconomic History ??? Marital status: Spouse name: Not on file ??? Number of children: Not on file ??? Years of education: Not on file ??? Highest education level: Not on file Occupational History ??? Not on file Tobacco Use ??? Smoking status: Never Smoker ??? Smokeless tobacco: Never Used ??? Tobacco comment: Smoking History Packs/day: 0.5 Packs Substance and Sexual Activity ??? Alcohol use: Not Currently ??? Drug use: Never ??? Sexual activity: Not on file Other Topics Concern ??? Not on file Social History Narrative ??? Not on file Social Determinants of Health Financial Resource Strain: Not on file Food Insecurity: Not on file Transportation Needs: Not on file Physical Activity: Not on file Stress: Not on file Social Connections: Not on file Intimate Partner Violence: Not on file Housing Stability: Not on file Vital Signs Vitals: 09/18/21 1438 BP: 114/61 BP Location: Left arm Patient Position: Sitting Pulse: 85 Temp: (!) 35.9 ??C (96.7 ??F) TempSrc: Temporal SpO2: 97% Weight: 107.5 kg (237 lb) Height: 162.6 cm (5' 4 ) [...] for itching and rash. Neurological: Positive for seizures, weakness and headaches. Negative for dizziness, tingling, tremors, [...] There was no drift. Finger to nose and [id number] were intact. Romberg negative. Patient was able to stand from seated position without assist. Gait was normal based and she could heel and toe walk, tandem unsteady. Deep tendon reflexes were 2 throughout and symmetric. Assessment/Plan Diagnosis Plan 1. Intractable chronic migraine without aura and without status migrainosus Ambulatory referral to Neurology Plan Migraines have increased and she reports Aimovig is wearing off early each month. She has toleratedthe medication well so I recommended increasing the dose to 140mg. We reviewed potential SE including injection site reaction and constipation. She was told to call if she has difficulty tolerating the medication for any reason. I reminded her it may take a few months to see the full benefit of thehigher dose. If higher dose of Aimovig is not beneficial, we could consider changing to Ajovy or Emgality. I offered Sumatriptan prn for abortive therapy of migraines (DSE). She was instructed to take 1 at onset of migraine and may repeat once after 2 hrs if needed, max 2 in 24 hrs. She may call for dose increase if needed. Ubrelvy samples were beneficial but I explained likely not covered by insurance without first trialing triptans. Ubelvy certainly can be added if she fails a couple triptans, She will follow up with Dr Fawn garsia increased seizures. All of their questions were answered and I think they have a good understanding of what we discussed. I spent a total of 28 [id number] minutes of which more than 50% of visit spent counseling and coordinating care. In addition to the time spent during the session with the patient, I spent 3 minutespreparing to see the patient, 5 minutes documenting clinical information and ordering tests and medications. Total time spend on encounter on the day of the visit: 36 minutes. Return in about 6 months (around 03/21/2022). Future Appointments Date Time Provider Department Center 01/03/2022 10:30 AM Jerry Augustine MD PhD EPI [facility] 03/26/2022 3:30 PM Mone Pascual PA [facility] 40 [facility] Thank you for allowing me to participate in the care of your patient. If you have any questions, feel free to contact me. Sincerely, MADONNA Flores MOTIVE LOT ATTENDANT documented in this encounter Plan of Treatment Not on file documented as of this encounter Visit Diagnoses Diagnosis Intractable chronic migraine without aura and without status migrainosus documented in this encounter Discontinued Medications Medication Sig Discontinue Reason Start Date End Da te erenumab-aooe (AIMOVIG) 70 mg/mL auto-injector subcutaneous injection Inject 1 mL (70 mg total) under the skin every 30 (thirty) days 01/03/2021 09/18/2021 amoxicillin-clavulanate (AUGMENTIN) 875-125 mg per tablet Take 1 tablet by mouth every 12 (twelve) hours 05/05/2021 09/18/2021 benzonatate (TESSALON) 100 mg capsuleIndications:Cough Take 1 capsule (100 mg total) by mouth every 8 (eight) hours 05/05/2021 09/18/2021 documented as of this encounter Orders Outpatient Referral Count Last Ordered Date Fir st Ordered Date AMB REFERRAL TO NEUROLOGY 1 09/18/2021 documented in this encounter Care Teams Adjunct Sociology Professor Relationship Specialty Start Date End Date Davi Georges MD [address] [place] [address] PCP - General Family Medicine 07/05/21 documented as of this encounter
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
--- OUTSIDE RECORDS SUMMARY | 2024-07-16 12:53 | XMS_ITS | Encounter Summary ---
Author Organization [facility] Address [address] [place] [address] Phone Care Team Providers Care Body Specialist Name Role Phone Sg Richards MD Primary Care Provider + Reason for Visit * Reason Comments Follow-up Migraines * Consultation (Routine) - Closed Specialty Diagnoses / Procedures Referred By Contac t Referred To Contact Neurology Diagnoses Intractable chronic migraine without aura and without status migrainosus Jerry Augustine MD PhD [address] [place] [address] Phone: tel: fax: [facility] (All Locations) Referral ID Status Reason Start Date Expiration Date V isits Requested Visits Authorized [id number] Closed Specialty Services Required 08/30/2020 09/29/2021 1 1 Encounter Details Date Type Department Care Team (Late st Contact Info) Description 09/14/2020 4:00 PM TITLE CURATOR Office Visit [facility] General Neurology [address] [facility] 6th [place] [address] [place] [id number] Soto Vera MD [address] [place] [address] Intractable chronic migraine without aura [...] Sign Reading Time Taken Comments Blood Pressure 124/88 09/14/2020 3:23 PM TITLE CURATOR Pulse 79 09/14/2020 3:23 PM TITLE CURATOR Temperature 36.1 ??C (97 ??F) 09/14/2020 3:23 PM TITLE CURATOR Respiratory Rate - - Oxygen Saturation - - Inhaled Oxygen Concentration - - Weight 100.4 kg (221 lb 4 oz) 09/14/2020 3:23 PM TITLE CURATOR Height 162.6 cm (5' 4 ) 09/14/2020 3:23 PM TITLE CURATOR Body Mass Index 37.98 09/14/2020 3:23 PM TITLE CURATOR documented in this encounter Progress Notes * Soto Vera MD - 09/14/2020 4:00 PM CST GENERAL NEUROLOGY RETURN OFFICE VISIT PATIENT NAME: AMITA SIMPSON DATE OF : 1975 ENCOUNTER DATE: 09/14/2020 Assessment & Plan: 1. Intractable chronic migraine without aura and without status migrainosus - Ambulatory referral to Neurology Patient had a good response with Aimovig 70 mg sample. Her new prescription was approved. She was instructed to inject on the abdomen or upper thigh. Benefit and side effects were discussed. She willstart the injection on the first day of the month. She will give an update by the end of September 2020. If she has a <50%, the Aimovig dosage will be increased to 140 mg SQ/month. Telemedicine visit in 6 months. Subjective: Chief Complaint Patient presents with ??? Follow-up Migraines Subjective Interval History of Present Illness: Amita Simpson is a 45 y.o. female is for migraine follow up. She was accompanied by her . She tried the sample of Aimovig after I saw her on March 09, 2020. After 3 days, she had no migraines for one month. She called up the clinic about her response but never heard back. She only calleda few days ago to have Aimovig prescribed. The Aimovig PA was approved. She will be picking it up today. She also had a a good response with the Ubrelvy. She has a hsitory of DENI that is well controlled;managed by Dr. Augustine. Review of Systems Past Medical & Surgical History: Past Medical History: Diagnosis Date ??? Depression Depression ??? HX OTHER MEDICAL heart attack; Comments: S 02/14/2015 - ??? HX OTHER MEDICAL back pain; Comments: S 02/14/2015 - ??? HX OTHER MEDICAL Missed x2; Comments: RED 06/13/2016 - ??? HX OTHER MEDICAL Dog attack; Comments: RED 06/13/2016 - ??? HX OTHER MEDICAL Abnormal pap - 'precancer cells'; Comments: RED 06/13/2016 - ??? HX OTHER MEDICAL 2002 Left titanium joint 2003; Comments: KAZ 09/23/2016 - ??? HX OTHER MEDICAL 2010 Left ear cyst.; Comments: KAZ 09/23/2016 - ??? Hypertension Hypertension ??? Seizure disorder (CMS/HCC) Seizure disorder Past Surgical History: Procedure Laterality [...] Diabetes Other Family history of Diabetes mellitus; [facility] 06/13/2016 - Mother, father ??? Hypertension Other Family history of Hypertension; RED 06/13/2016 - Mother, father ??? Other Other [...] Social Determinants of Health Financial Resource Strain: ??? Difficulty of Paying Living Expenses: Food Insecurity: ??? Worried About Running Out of Food in the Last Year: ??? Ran Out of Food in the Last Year: Transportation Needs: ??? Lack of Transportation (Medical): ??? Lack of Transportation (Non-Medical): Physical Activity: ??? Days of Exercise per Week: ??? Minutes of Exercise per Session: Stress: ??? Feeling of Stress : Social Connections: ??? Frequency of Communication with Friends and Family: ??? Frequency of Social Gatherings with Friends and Family: ??? Attends Holiness Services: ??? Active Member of Clubs or Organizations: ??? Attends Club or Organization Meetings: ??? Marital Status: Intimate Partner Violence: ??? Fear of Current or Ex-Partner: ??? Emotionally Abused: ??? Physically Abused: ??? Sexually Abused: Medications: Current Outpatient Medications Medication Sig Dispense Refill ??? traZODone (DESYREL) 100 mg tablet ??? calcium carbonate (TUMS) 500 mg calcium (200 mg of elemental calcium) chewable tablet Take by mouth daily as needed ??? erenumab-aooe (AIMOVIG) 70 mg/mL auto-injector subcutaneous injection Inject 1 mL (70 mg total)under the skin every 30 (thirty) days 1 Syringe 11 ??? gabapentin (NEURONTIN) 600 mg tablet TK 2 TS PO TID 1 ??? HYDROcodone-acetaminophen (NORCO) 5-325 mg per tablet TK 1 T PO Q 6 H PRN 0 ??? ibuprofen (ADVIL,MOTRIN) 800 mg tablet Take 800 mg by mouth every 8 (eight) hours ??? lamoTRIgine (LaMICtal) 100 mg tablet Take [...] ??? primidone (MYSOLINE) 50 mg tablet Take 3 tablets (150 mg total) by mouth 2 (two) times a day 180 tablet 11 No current facility-administered medications for this visit. Allergies Allergen Reactions ??? Adhesive Tape-Silicones Hives ??? Erythromycin Other (See comments) and Hallucinations Reaction: Neuro problems, , ??? Silicone Hives ??? Unclassified Drug Swelling ALLERGY TO CATHETERS Objective: Vitals: 09/14/20 1523 BP: 124/88 BP Location: Left arm Patient Position: Sitting Pulse: 79 Temp: 36.1 ??C (97 ??F) TempSrc: Temporal Weight: 100.4 kg (221 lb 4 oz) Height: 162.6 cm (5' 4 ) Objective Physical Exam Constitutional: She is oriented to person, place, and time. No distress. HENT: Head: Normocephalic. Neurological: She is alert and oriented to person, place, and time. Gait normal. Psychiatric: She has a normal mood and affect. Her speech is normal and behavior is normal. Judgment and thought content normal. Neurologic Exam Mental Status Oriented to person, place, and time. Attention: normal. Speech: speech is normal Level of consciousness: alert Knowledge: good. Normal comprehension. Gait, Coordination, and Reflexes Gait Gait: normal 5 minutes preparing to see the patient, 15 minutes counseling and educating the patient/family/caregiver and 10 minutes documenting clinical information in the electronic or other health record Total time spend on encounter on the day of the visit: 25 minutes. Greater than 50% of any time I spent on the call/video was spent in counseling and/or coordination of care as documented in the note. Xfpb-pn-[id number] time with physician began: 4:00 PM Coio-fp-yurh time with physician ended: 4:16 PM More than 50% of our time together was spent counseling the patient or coordinating their care. Signed by: Soto Vera M.D. Business Services Analyst, Neurology [facility] E CURATOR documented in this encounter Plan of Treatment Not on file documented as of this encounter Visit Diagnoses Diagnosis Intractable chronic migraine without aura and without status migrainosus documented in this encounter Discontinued Medications Medication Sig Discontinue Reason Start Date End Da te HYDROcodone-acetaminophe n (NORCO) 5-325 mg per tablet TK 1 T PO Q 6 H PRN Duplicate order 08/03/2019 09/14/[address] (PROTONIX) 40 mg EC tablet TAKE 1 TABLET BY MOUTH DAILY Duplicate order 08/27/2020 09/14/2020 documented as of this encounter Historical Medications * This list may reflect changes made after this encounter. pantoprazole DR (PROTONIX) 40 mg EC tablet TAKE 1 TABLET BY MOUTH DAILY 08/27/2020 09/14/2020 HYDROcodone-aceta minophen (NORCO) 5-325 mg per tablet TK 1 T PO Q 6 H PRN 08/03/2019 09/14/2020 traZODone (DESYREL) 100 mg tablet 05/26/2016 09/29/2022 added in this encounter Orders Outpatient Referral Count Last Ordered Date Fir st Ordered Date AMB REFERRAL TO NEUROLOGY 1 09/14/2020 documented in this encounter Care Teams Body Specialist Relationship Specialty Start Date End Date Sg Richards MD PCP - General 10/17/16 07/04/21 documented as of this encounter
--- OUTSIDE RECORDS SUMMARY | 2024-07-16 12:53 | XMS_ITS | Encounter Summary ---
Author Organization [facility] Address [address] [place] [address] Phone Care Team Providers Care Thread Twister Name Role Phone Davi Georges MD Primary Care Provider [phone] Reason for Visit * Reason Comments Migraine * Consultation (Routine) - Canceled Specialty Diagnoses / Procedures Referred By Contelif perdue Referred To Contact Neurology Diagnoses Intractable chronic migraine without aura and without status migrainosus Davi Georges MD [address] [place] [address] [place] [address] Phone: tel: fax: [facility] (All Locations) Referral ID Status Reason Start Date Expiration Date Visits Requested Visits Authorized [id number] Canceled Specialty Services Required 02/24/2022 03/26/2023 12 12 Encounter Details Date Type Department Care Team (Late st Contact Info) Description 03/28/2022 1:00 PM CDT Telemedicine [facility] General Neurology [address] [facility] 6th Floor [address] [place] [address] Mone Pascual PA [address] [place] [address] Intractable chronic migraine without aura [...] on file documented as of this encounter Progress Notes * Mone Pascual PA - 03/28/2022 1:00 PM CDT Patient Name: AMITA SIMPSON Medical Record Number (MRN): [id number] Date of (): 1975 Encounter Date: 03/28/2022 This was a telemedicine visit with Amita Simpson alone which took place via Real-time video connection ([employer] Discovery[employer], Zoom or similar). During the visit, I was located at home and the patient was located at home in the [facility]. The patient visit started at 1:08pm and ended at 1:21pm. The patient: has been informed that the visit may not be secure and acknowledged the information. The option of participating in a telephone or video visit during the [facility] [place] [address] emergencywas explained to them. After being given an opportunity to ask questions about and discuss this type of visit, they verbally consented to proceeding with the telephone/video visit and understand thatthis service replaces an office visit. Chief Complaint Amita Simpson is a 46 y.o. female with hx of DENNYS, GERD, epilepsy (followed by Dr Augustine), dog bite with multiple jaw surgeries and residual chronic pain, depression, seen today for Migraine. HPI She was last seen in September. Aimovig dose was inceased from 70mg to 140mg, and Sumatriptan prn was added for abortive therapy. Sumatriptan was not well tolerated (caused dizziness) and was changed to Rizatriptan. Since her last visit, migraines have decreased since increasing the Aimvoig dose. She was having wearing off in the last 2 weeks. That has improved since increasing dose to 140mg. She nowhas only 2 or 3 migraines per month. Rizatriptan will stop migraines quickly and she has not neededa second dose. She denies SE. Health has been good otherwise. Seizures have decreased even though Stress is very high. Her suffered severe rae at work and was in the hospital for 2.5 months and rebab for 1 month. Copied forward from previous note: She presents today because headaches have increased [...] relief and goes to bed. She has nevertried triptans. She tried Ubrelvy sample and it [...] total) by mouth 2 (two) times a [id number] tablet [address] (PROTONIX) 40 mg EC tablet TK 1 T PO D 3 primidone (MYSOLINE) 50 mg tablet Take 5 tablets (250 mg total) by mouth 2 (two) times a day 300 tablet 11 rizatriptan (MAXALT) 5 mg tablet Take 1 tablet (5 mg total) by mouth once as needed for migraine May repeat in 2 hours if unresolved. Do not exceed 3 in 24 hours. 9 tablet 5 traZODone (DESYREL) 100 mg tablet No current facility-administered medications on file prior to visit. Patient Active Problem List Diagnosis Obesity with body mass index 30 or greater Sleep apnea Epilepsy (HCC) Knee pain Current smoker Arthritis Chronic pain Depression Gastroesophageal reflux disease Juvenile myoclonic epilepsy (CMS/HCC) (HCC) Seizures (CMS/HCC) ([facility]) Cholecystitis, acute Elevated liver function tests Right lower quadrant abdominal pain Intractable chronic migraine without aura and without status migrainosus Past Medical History: Diagnosis Date Depression Depression HX OTHER MEDICAL heart attack; Comments: [facility] 02/14/2015 - HX OTHER MEDICAL back pain; Comments: [facility] 02/14/2015 - HX OTHER MEDICAL Missed x2; Comments: [facility] 06/13/2016 - HX OTHER MEDICAL Dog attack; Comments: [facility] 06/13/2016 - HX OTHER MEDICAL Abnormal pap - 'precancer cells'; Comments: [facility] 06/13/2016 - HX OTHER MEDICAL 2002 Left titanium joint 2003; Comments: [facility] 09/23/2016 - HX OTHER MEDICAL 2010 Left ear cyst.; Comments: [facility] 09/23/2016 - Hypertension Hypertension Seizure disorder ([facility]) ([facility]) Seizure disorder Past Surgical History: Procedure Laterality [...] Diabetes Other Family history of Diabetes mellitus; [facility] 06/13/2016 - Mother, father Hypertension Other Family history of Hypertension; [facility] 06/13/2016 - Mother, father Other Other Family [...] file Social History Narrative Not on file Social Determinants of Health Financial Resource Strain: Not on file Food Insecurity: Not on file Transportation Needs: Not on file Physical Activity: Not on file Stress: Not on file Social Connections: Not on file Intimate Partner Violence: Not on file Housing Stability: Not on file Vital Signs There were [...] comprehensive history. Speech is clear and fluent. She follows simple and complex commands. Pupils are equal, round. Ocular motility is normal OU. Eyebrow raise, eye closure and smile are full and symmetric. Hearing intact to voice. Tongue and palate are midline. Shoulder shrug is intact. Motor and Coordination: Full range of motion in the arms. No tremor noted. Note: Exam is limited due to video visit. Assessment/Plan Diagnosis Plan 1. Intractable chronic migraine without aura and without status migrainosus Plan Migraines are currently well controlled since increasing Aimovig dose. She is very pleased with howwell she is doing and she is able to manage occasional breakthrough migraines with Rizatriptan. Shedoes not feel any changes are needed at this time. I spent a total of 13 [id number] minutes of which more than 50% of visit spent counseling and coordinating care. In addition to the time spent during the session with the patient, I spent 3 minutespreparing to see the patient, 3 minutes documenting clinical information and ordering tests and medications. Total time spend on encounter on the day of the visit: 19 minutes. Return in about 6 months (around 09/25/2022). Future Appointments Date Time Provider Department Center [...] status migrainosus- Primary documented in this encounter Care Teams Thread Twister Relationship Specialty Start Date End Date Davi Georges MD [address] [place] [address] PCP - General Family Medicine 07/05/21 documented as of this encounter
--- OUTSIDE RECORDS SUMMARY | 2024-07-16 12:53 | XMS_ITS | Encounter Summary ---
Author Organization [facility] Address [address] [place] [address] Phone Care Team Providers Care Scleroscope Tester Name Role Phone Sg Richards MD Primary Care Provider + Reason for Visit * Reason Comments Migraine * Consultation (Routine) - Closed Specialty Diagnoses / Procedures Referred By Contelif t Referred To Contact Neurology Diagnoses Other generalized epilepsy, intractable, without status epilepticus (HCC) Mone Pascual PA [address] [place] [address] Phone: tel: fax: [facility] (All Locations) Referral ID Status Reason Start Date Expiration Date V isits Requested Visits Authorized [id number] Closed Specialty Services Required 12/25/2020 01/24/2022 1 1 Encounter Details Date Type Department Care Team (Late st Contact Info) Description 01/03/2021 11:00 AM CDT Office Visit [facility] General Neurology [address] [facility] 6th [address] [place] [address] Mone Pascual PA [address] [place] [address] Intractable chronic migraine without aura and without [...] Sign Reading Time Taken Comments Blood Pressure 110/80 01/03/2021 10:32 AM CDT Pulse 78 01/03/2021 10:32 AM CDT Temperature 36.9 ??C (98.4 ??F) 01/03/2021 10:32 AM C DT Respiratory Rate - - Oxygen Saturation - - Inhaled Oxygen Concentration - - Weight 106.1 kg (234 lb) 01/03/2021 10:32 AM CDT Height 162.6 cm (5' 4 ) 01/03/2021 10:32 AM CDT Body Mass Index 40.17 01/03/2021 10:32 AM CDT documented in this encounter Ordered Prescriptions Prescription Sig Dispense Quantity Refills Last Filled Start Date End Date erenumab-aooe (AIMOVIG) 70 mg/mL auto-injector subcutaneous injection Inject 1 mL (70 mg total) under the skin every 30 (thirty) days 1 Syringe 11 01/03/2021 09/18/2021 documented in this encounter Progress Notes * Mone Pascual PA - 01/03/2021 11:00 AM CDT Patient Name: AMITA SIMPSON Medical Record Number (MRN): [id number] Date of (): 1975 Encounter Date: 01/03/2021 Chief Complaint Amita Simpson is a 45 y.o. female with hx of DENNYS, GERD, epilepsy (followed by Dr Augustine), dog bite with multiple jaw surgeries and residual chronic pain, seen today for new evaluation and treatment of Migraine. She was referred by Dr Dr Sg Richards for neurology consult. She was previouslyfollowed by Dr Vera, last seen on 09/14/20, and presents today for transfer of care. HPI Since her last visit, she has continued Aimovig 70mg. It has helped her headaches significantly. She previously had near daily migraines. She now has only 2-3 headaches per month. They are intense throbbing pain across her forehead. They are associated with photo/phonophobia, no n/v. She often has t rouble focusing her vision when she has a migraine. She treats with Motrin and Hydrocodone, and goes to bed for an hour. The headache is gone when she wakes up an hour later. She is headache free therest of the month. Migraines can be triggered by stress or after a seizure. She has chronic jaw pain following a dog bite. She reports 59 surgeries to the jaw. She also takes Gabapentin 1200mg bid. She sees a shipyard painter helper. Allergies Allergen Reactions ??? Adhesive Tape-Silicones Hives [...] (two) times a day 180 tablet 11 ??? traZODone (DESYREL) 100 mg tablet ??? [DISCONTINUED] erenumab-aooe (AIMOVIG) 70 mg/mL auto-injector subcutaneous injection Inject 1 mL (70 mg total) under the skin every 30 (thirty) days 1 Syringe 11 No current facility-administered medications on file prior to visit. Patient Active Problem List Diagnosis ??? Obesity with body mass index 30 or greater ??? Sleep apnea ??? Epilepsy (CMS/HCC) ??? Knee pain ??? Current smoker ??? Arthritis ??? Chronic pain ??? Depression ??? Gastroesophageal reflux disease ??? Juvenile myoclonic epilepsy (CMS/HCC) ??? Seizures (CMS/HCC) ??? Cholecystitis, acute ??? Elevated liver function [...] ??? HX OTHER MEDICAL Dog attack; Comments: [facility] 06/13/2016 - ??? HX OTHER MEDICAL Abnormal [...] Diabetes mellitus; [facility] 06/13/2016 - Mother, father ??? Hypertension Other [...] Gatherings with Friends and Family: ??? Attends Synagogue Services: ??? Active Member of Clubs or Organizations: ??? Attends Club or Organization Meetings: ??? Marital Status: Intimate Partner Violence: ??? Fear of Current or Ex-Partner: ??? Emotionally Abused: ??? Physically Abused: ??? Sexually Abused: Vital Signs Vitals: 01/03/21 1032 BP: 110/80 BP Location: Right arm Patient Position: Sitting Pulse: 78 Temp: 36.9 ??C (98.4 ??F) Weight: 106.1 kg (234 lb) Height: 162.6 cm (5' 4 ) [...] fluent. She was slow to answer questions. She was able to name the last 3 presidents. She was able to spell the word world forwards, but unable to spell it backwards (incorrect on multiple attempts DLOD, DO.., DLORD, ) HEENT: normocephalic and atraumatic. No conjunctival injection. [...] was no drift. Finger to nose and [id number] were intact. Romberg negative. Patient was able to stand from seated position without assist. Gait was normal based and she could heel and toe walk, but was unable to tandem walk. Deep tendon reflexes were 2 throughout and symmetric. Assessment/Plan Diagnosis Plan 1. Intractable chronic migraine without aura and without status migrainosus Ambulatory referral to Neurology Plan Amita Simpson presented today for transfer of care for chronic migraine management. I reviewed her previous neurology records. She previously had near daily migraines and has had significant improvement on Aimovig 70mg. She now has only a few migraine days per month, which she is able to abort with ibuprofen, hydrocodone, and rest. Hydrocodone is managed by her shipyard painter helper. Shetakes the daily for other chronic pain. She is tolerating Aimovig well without side effects. She does not feel any changes are needed to her regimen at this time. I will see her back in 1 year or sooner if needed. I spent a total of 20 [id number] minutes of which more than 50% of visit spent counseling and coordinating care. In addition to the time spent during the session with the patient, I spent 8 minutespreparing to see the patient, 4 minutes documenting clinical information and ordering tests and medications. Total time spend on encounter on the day of the visit: 32 minutes. Return in about 1 year (around 01/03/2022). Future Appointments Date Time Provider Department Center 01/07/2021 8:30 AM Day, Jerry Solis MD PhD EPI [facility] 6[facility] NL 01/07/2022 3:30 PM Mone Pascual PA GEN [facility] [...] the skin every 30 (thirty) days Reorder 09/10/2020 01/03/2021 documented as of this encounter Orders Outpatient Referral Count Last Ordered Date Fir st Ordered Date AMB REFERRAL TO NEUROLOGY 1 01/03/2021 documented in this encounter Care Teams Scleroscope Tester Relationship Specialty Start Date End Date Sg Richards MD PCP - General 10/17/16 07/04/21 documented as of this encounter
--- OUTSIDE RECORDS SUMMARY | 2024-07-16 12:53 | XMS_ITS | Encounter Summary ---
Author Organization [facility] Address [address] [place] [address] Phone Care Team Providers Care Reporting Specialist Name Role Phone Sg Richards MD Primary Care Provider + Encounter Details Date Type Department Care Team (Late st Contact Info) Description 03/16/2020 Telephone [facility] Epilepsy [address] [facility] 6th [place] [address] [place] [address] Kayla Gabriel RN Social History Tobacco Use Types Packs/Day [...] encounter Miscellaneous Notes * Telephone Encounter - Kayla Gabriel RN - 03/16/2020 1:14 PM CDT Pt called to update that she saw Dr Baptiste who gave me a shot and some medicine . She reports that she is feeling so much better . She mentioned that she might need a PA for further treatment. Directed her to discuss this with Dr Baptiste's office. Verbalized understanding. documented in this encounter Plan of Treatment Not on file documented as of this encounter Visit Diagnoses Not on filedocumented in this encounter Care Teams Reporting Specialist Relationship Specialty Start Date End Date Sg Richards MD PCP - General 10/17/16 07/04/21 documented as of this encounter
--- OUTSIDE RECORDS SUMMARY | 2024-07-16 12:53 | XMS_ITS | Encounter Summary ---
Author Organization [facility] Healthcare Address [address] [place] [address] Care Team Providers Care Pharmacy Laboratory Technician Name Role Phone Davi Georges MD Primary Care Provider Reason for Visit * Reason Comments Sinusitis Encounter Details Date Type Department Care Team (Late st Contact Info) Description 10/06/2021 10:23 PM CDT - 10/06/2021 11:32 PM CDT Emergency [facility] Emergency Department [address] [place] [address] Lamine Campos MD [address] [place] [address] Acute non-recurrent frontal sinusitis (Primary Dx) Discharge Disposition: Discharge to home or self [...] Sign Reading Time Taken Comments Blood Pressure 118/85 10/06/2021 11:00 PM CDT Pulse 77 10/06/2021 11:00 PM CDT Temperature 36.8 ??C (98.3 ??F) 10/06/2021 8:42 PM CD T Respiratory Rate 18 10/06/2021 10:38 PM CDT Oxygen Saturation 98% 10/06/2021 11:00 PM CDT Inhaled Oxygen Concentration - - Weight 104.3 kg (230 lb) 10/06/2021 8:42 PM CDT Height - - Body Mass Index 39.48 09/18/2021 2:38 PM ENGINEER SYSTEM ADMINISTRATOR documented in this encounter Discharge Diagnoses Diagnosis Acute frontal sinusitis, unspecified - ACUTE FRONTAL SINUSITIS, UNSPECIFIED Essential (primary) hypertension - ESSENTIAL (PRIMARY) HYPERTENSION Unspecified essential hypertension Old myocardial infarction - OLD MYOCARDIAL INFARCTION Epilepsy, unspecified, not intractable, without status epilepticus (HCC) - EPILEPSY, UNSPECIFIED, NOT INTRACTABLE, WITHOUT STATUS EPILEPTICUS documented in this encounter Discharge Instructions * Discharge Instructions* Lamine Campos MD - 10/06/2021 11:03 PM CDT Take Dania twice a day. Use Flonase daily. Follow up with your primary care doctor. * Attachments The following attachments cannot be sent through Care Everywhere. * Sinusitis (No Antibiotics) (Kinyarwanda) documented in this encounter Medications at Time of Discharge calcium carbonate (TUMS) 500 mg calcium (200 mg of elemental calcium) chewable tablet Take by mouth daily as needed pantoprazole DR (PROTONIX) 40 mg EC tablet 3 02/05/2019 erenumab-aooe (Aimovig Autoinjector) 140 mg/mL auto-injector Inject 140 mg under the skin every 30 (thirty) days 1 mL 11 09/18/2021 3 fexofenadine (DANIA) 60 mg tablet Take 1 tablet (60 mg total) by mouth 2 (two) times a day for 10 days 20 tablet 10/06/2021 2 fexofenadine (DANIA) 60 mg tablet Take 1 tablet (60 mg total) by mouth 2 (two) times a day for 10 days 20 tablet 10/06/2021 2 fluticasone propionate (FLONASE) 50 mcg/actuation nasal spray Administer 1 spray into each nostril daily 16 g 10/06/2021 2 fluticasone propionate (FLONASE) 50 mcg/actuation nasal spray Administer 1 spray into each nostril daily 16 g 10/06/2021 2 gabapentin (NEURONTIN) 600 mg tablet TK 2 TS PO TID 1 03/02/2019 4 HYDROcodone-acet aminophen (NORCO) 5-325 mg per tablet TK 1 T PO Q 6 H PRN 0 02/22/2019 3 ibuprofen (ADVIL,MOTRIN) 800 mg tablet Take 800 mg by mouth every 8 (eight) hours 11/04/2018 2 lamoTRIgine (LaMICtal) 100 mg tablet Take 3.5 tablets (350 mg total) by mouth 2 (two) times a day 210 tablet 11 07/05/2021 2 levETIRAcetam (KEPPRA) 1,000 mg tablet Take 2 tablets (2,000 mg total) by mouth 2 (two) times a day 120 tablet 11 07/05/2021 2 primidone (MYSOLINE) 50 mg tablet Take 5 tablets (250 mg total) by mouth 2 (two) times a day 300 tablet 11 07/05/2021 2 rizatriptan (MAXALT) 5 mg tabletIndication s:Migraine Take 1 tablet (5 mg total) by mouth once as needed for migraine May repeat in 2 hours if unresolved. Do not exceed 3 in 24 hours. 9 tablet 5 09/27/2021 3 traZODone (DESYREL) 100 mg tablet 05/26/2016 3 documented as of this encounter Ordered Prescriptions Prescription Sig Dispense Quantity Refills Last Filled Start Date End Date fluticasone propionate (FLONASE) 50 mcg/actuation nasal spray Administer 1 spray into each nostril daily 16 g 10/06/2021 2 fexofenadine (DANIA) 60 mg tablet Take 1 tablet (60 mg total) by mouth 2 (two) times a day for 10 days 20 tablet 10/06/2021 2 fluticasone propionate (FLONASE) 50 mcg/actuation nasal spray Administer 1 spray into each nostril daily 16 g 10/06/2021 2 fexofenadine (DANIA) 60 mg tablet Take 1 tablet (60 mg total) by mouth 2 (two) times a day for 10 days 20 tablet 10/06/2021 2 documented in this encounter Discharge Disposition Disposition Code Departure Means Destination Discharge to home or self care documented in this encounter ED Notes * Lamine Campos MD - 10/06/2021 10:59 PM CDT HPI Chief Complaint Patient presents with ??? Sinusitis Patient has had pressure in the sinuses since last night. She has had rhinorrhea. She has had nasalcongestion. She has been blowing her nose frequently. No fever. She has had a little bit of a cough. She has a headache. Patient History: Patient Active Problem List Diagnosis Date Noted ??? Intractable chronic migraine without aura and without status migrainosus 03/09/2020 ??? Cholecystitis, acute ??? Elevated liver function tests ??? Right lower quadrant abdominal pain ??? Seizures (CMS/HCC) ([facility]) 01/09/2018 ??? Arthritis 09/07/2017 ??? Knee pain 09/22/2016 ??? Current smoker 09/22/2016 ??? Obesity with body mass index 30 or greater 06/04/2016 ??? Sleep apnea 06/04/2016 ??? Epilepsy ([facility]) 06/04/2016 ??? Chronic pain 01/09/2016 ??? Gastroesophageal reflux disease 01/09/2016 ??? 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 Depression 09/24/2015 Past Medical History: Diagnosis Date ??? Depression Depression ??? HX OTHER MEDICAL heart attack; Comments: MKS 02/14/2015 - ??? HX OTHER MEDICAL back pain; Comments: MKS 02/14/2015 - ??? HX OTHER MEDICAL Missed x2; Comments: GEOVANY 06/13/2016 - ??? HX OTHER MEDICAL Dog attack; Comments: RED 06/13/2016 - ??? HX OTHER MEDICAL Abnormal pap - 'precancer cells'; Comments: RED 06/13/2016 - ??? HX OTHER MEDICAL 2003 Left titanium joint 2003; Comments: JJC 09/23/2016 - ??? HX OTHER MEDICAL 2010 Left ear cyst.; Comments: JJC 09/23/2016 - ??? Hypertension Hypertension ??? Seizure [...] arthritis.; ??? Seizures Maternal Grandmother Social History Tobacco Use ??? Smoking status: Never Smoker ??? Smokeless tobacco: Never Used ??? Tobacco comment: Smoking History Packs/day: 0.5 Packs Substance Use Topics ??? Alcohol use: Not Currently ??? Drug use: Never Social History Social History Narrative ??? Not on file Review of Systems Review of Systems Constitutional: Negative for chills and fever. HENT: Positive for rhinorrhea and sinus pain. Negative for congestion and sore throat. Eyes: Negative for pain. Respiratory: Positive for cough. Negative for shortness of breath. Cardiovascular: Negative for chest pain and leg swelling. Gastrointestinal: Negative for abdominal pain, diarrhea, nausea and vomiting. Genitourinary: Negative for difficulty urinating. Musculoskeletal: Negative for myalgias. Skin: Negative for rash. Neurological: Positive for headaches. Negative for dizziness. Psychiatric/Behavioral: Negative for behavioral problems. Physical Exam ED Triage Vitals Temp Pulse Resp BP SpO2 10/06/212 10/06/21204110/06/21204110/06/21204310/06/212041 36.8 ??C (98.3 ??F) 93 18 119/76 99 % Temp src Heart Rate Source Patient Position BP Location FiO2 (%) -- -- -- -- -- Physical Exam Vitals and nursing note reviewed. Constitutional: General: She is not in acute distress. Appearance: She is well-developed. HENT: Head: Normocephalic and atraumatic. Comments: Sinus tenderness Eyes: Conjunctiva/sclera: Conjunctivae normal. Cardiovascular: Rate and Rhythm: Normal rate and regular rhythm. Heart sounds: Normal heart sounds. No murmur heard. Pulmonary: Effort: Pulmonary effort is normal. No respiratory distress. Breath sounds: Normal breath sounds. Abdominal: General: Bowel sounds are normal. There is no distension. Palpations: Abdomen is soft. Tenderness: There is no abdominal tenderness. There is no guarding. Musculoskeletal: Cervical back: Neck supple. Skin: General: Skin is warm and dry. Neurological: Mental Status: She is alert and oriented to person, place, and time. Antibiotic use with Sinusitis Place X as appropriate (including subgroup answer as indicated): [X] The patient has sinusitis and antibiotics are not indicated/not prescribed at this time. [SATISFIES MIPS PERFORMANCE] [] The patient has sinusitis with symptom onset greater than 10 days ago and the patient was prescribed antibiotics.[SATISFIES MIPS PERFORMANCE] [] Patient was prescribed an amoxicillin-based antibiotic. [] Patient was prescribed a non amoxicillin-based antibiotic because [*] (ex. allergy, intolerance,secondary infection like Acute Pharyngitis, Cellulitis, UTI) [] Patient was prescribed a non amoxicillin-based antibiotic. [] The patient has sinusitis and was prescribed antibiotics because [*] (ex. patient???s symptoms worsened after initial improvement, patient has secondary infection, patient is immunocompromised) [MIPS PERFORMANCE EXCEPTION/EXCLUSION] [] Patient was prescribed an amoxicillin-based antibiotic. [] Patient was prescribed a non amoxicillin-based antibiotic because [*] (ex. allergy, intolerance,secondary infection like Acute Pharyngitis, Cellulitis, UTI) [] Patient was prescribed a non amoxicillin-based antibiotic. [] The patient has sinusitis with symptom onset less than or equal to 10 ago days and antibiotics WERE prescribed. [DOES NOT SATISFY MIPS PERFORMANCE] [] Patient was prescribed an amoxicillin-based antibiotic. [] Patient was prescribed a non amoxicillin-based antibiotic because [*] (ex. allergy, intolerance,secondary infection like Acute Pharyngitis, Cellulitis, UTI) [] Patient was prescribed a non amoxicillin-based antibiotic. [facility] Final diagnoses: Acute non-recurrent frontal sinusitis Lamine Campos MD 10/06/21 [id number] Lamine Campos MD 12/03/21 1614 * Khanh Chery RN - 10/06/2021 8:40 PM CDT Patient arrives to the ED via private vehicle with complaints of sinus issues. Patient states she woke up last night with an unwell feeling. Today she has been having facial pain and drainage. documented in this encounter Plan of Treatment Not on file documented as of this encounter Visit Diagnoses Diagnosis Acute non-recurrent frontal sinusitis- Primary documented in this encounter Care Teams Pharmacy Laboratory Technician Relationship Specialty Start Date End Date Davi Georges MD [address] [place] [address] PCP - General Family Medicine 07/05/21 documented as of this encounter
--- OUTSIDE RECORDS SUMMARY | 2024-07-16 12:53 | XMS_ITS | Encounter Summary ---
Author Organization [facility] Address [address] [place] [address] Phone Care Team Providers Care Housekeeping Director Name Role Phone Davi Georges MD Primary Care Provider [phone] Encounter Details Date Type Department Care Team (Late st Contact Info) Description 09/27/[address] [facility] General Neurology [address] [place] [address] Mone Pascual PA [address] [place] [address] Social History Tobacco Use Types Packs/Day Years [...] Filled Start Date End Date rizatriptan (MAXALT) 5 mg tabletIndications: Migraine Take 1 tablet (5 mg total) by mouth once as needed for migraine May repeat in 2 hours if unresolved. Do not exceed 3 in 24 hours. 9 tablet 5 09/27/2021 3 documented in this encounter Plan of Treatment Not on file documented as of this encounter Visit Diagnoses Not on filedocumented in this encounter Discontinued Medications Medication Sig Discontinue Reason Start Date End Da te SUMAtriptan (IMITREX) 50 mg tabletIndications:Migra ine Take 1 tablet (50 mg total) by mouth once as needed for migraine (headache) May repeat one time after 2 hours if needed. 09/18/2021 09/27/2021 documented as of this encounter Care Teams Housekeeping Director Relationship Specialty Start Date End Date Davi Georges MD [address] [place] [address] PCP - General Family Medicine 07/05/21 documented as of this encounter
--- OUTSIDE RECORDS SUMMARY | 2024-07-16 12:53 | XMS_ITS | Encounter Summary ---
Author Organization [facility] Address [address] [place] [address] Phone Care Team Providers Care Student Records Coordinator Name Role Phone Sg Richards MD Primary Care Provider + Encounter Details Date Type Department Care Team (Late st Contact Info) Description 11/06/2020 Telephone [facility] General Neurology [address] [facility] [address] [place] [address] [place] [address] Cindy Mancia RN Social History [...] Telephone Encounter - Cindy Mancia RN - 11/06/2020 11:21 AM CDT niki I confirmed that she had refills on her Aimovig MH 01/03 DL 09/14/20 documented in this encounter Plan of Treatment Not on file documented as of this encounter Visit Diagnoses Not on filedocumented in this encounter Care Teams Student Records Coordinator Relationship Specialty Start Date End Date Sg Richards MD PCP - General 10/17/16 07/04/21 documented as of this encounter
--- OUTSIDE RECORDS SUMMARY | 2024-07-16 12:53 | XMS_ITS | Encounter Summary ---
Author Organization [facility] Address [address] [place] [address] Phone Care Team Providers Care Correctional Case Manager Name Role Phone Davi Georges MD Primary Care Provider Encounter Details Date Type Department Care Team (Late st Contact Info) Description 01/02/2022 Telephone [facility] Epilepsy [address] [facility] 6th [place] [address] [place] [address] Jerry Augustine MD PhD [address] [place] [address] Social History Tobacco Use Types Packs/Day Years [...] Encounter - Jerry Augustine MD PhD - 01/02/2022 2:34 PM CDT Last clinic visit, this patient told me that her PMD Dr. Georges wanted to talk to me about her. I hadmy office set up a time to talk, but we missed each other. I am seeing her again tomorrow, so I called Dr. Georges's office to touch base. He had no questions for me and asked that I FAX tomorrow's noteto his office for review. documented in this encounter Plan of Treatment Not on file documented as of this encounter Visit Diagnoses Not on filedocumented in this encounter Care Teams Correctional Case Manager Relationship Specialty Start Date End Date Davi Georges MD [address] [place] [address] PCP - General Family Medicine 07/05/21 documented as of this encounter
--- OUTSIDE RECORDS SUMMARY | 2024-07-16 12:53 | XMS_ITS | Encounter Summary ---
Author Organization [facility] Address [address] [place] [address] Phone Care Team Providers Care Caregiver Assisted Living Name Role Phone Sg Richards MD Primary Care Provider + Reason for Visit * Reason Comments Headache * Consultation (Routine) - Closed Specialty Diagnoses / Procedures Referred By Contac t Referred To Contact Neurology Diagnoses Other generalized epilepsy, intractable, without status epilepticus (HCC) Jerry Augustine MD PhD [address] [place] [address] Phone: tel: fax: Soto Vera MD Phone: tel: fax: Referral ID Status Reason Start Date Expiration Date V isits Requested Visits Authorized [id number] Closed Specialty Services Required 12/20/2019 06/17/2020 11 11 Encounter Details Date Type Department Care Team (Late st Contact Info) Description 03/09/2020 12:30 PM CDT Office Visit [facility] General Neurology [address] [facility] 6th [place] [address] [place] [id number] Soto Vera MD [address] [place] [address] Intractable chronic migraine without aura and without status migrainosus (Primary Dx); Other generalized epilepsy, intractable, without status epilepticus (CMS/HCC) Social History Tobacco Use Types Packs/Day Years [...] Sign Reading Time Taken Comments Blood Pressure 100/66 03/09/2020 12:23 PM CDT Pulse 91 03/09/2020 12:23 PM CDT Temperature 37 ??C (98.6 ??F) 03/09/2020 12:23 PM CDT Respiratory Rate - - Oxygen Saturation - - Inhaled Oxygen Concentration - - Weight 107 kg (236 lb) 03/09/2020 12:23 PM CDT Height 165.1 cm (5' 5 ) 03/09/2020 12:23 PM CDT Body Mass Index 39.27 03/09/2020 12:23 PM CDT documented in this encounter Progress Notes * Soto Vera MD - 03/09/2020 12:30 PM CDT GENERAL NEUROLOGY INITIAL OFFICE VISIT NOTE PATIENT NAME: AMITA SIMPSON DATE OF : 1975 ENCOUNTER DATE: 03/09/2020 REFERRING PHYSICIAN: Jerry Augustine MD PhD Assessment/Plan 1. Intractable chronic migraine without aura and without status migrainosus The patient was counseled on the diagnoses and pathophysiology of migraines. Headache diet, hydration, sleep hygiene and stress management were discussed. I also discussed the contribution of sleep apnea to her migraines. Abortive and preventative drug options were discussed including benefits and side effects. Treatment goals were also discussed. For Abortive treatment: she was given a sample of Ubrelvy 100 mg. She will take 100 mg on the onsetof the severe migraine; repeat in 2 hours if no pain relief. Max of 2 doses per day For Preventative treatment: she was given a sample of Aimovig 70 mg SQ once a month. She will give an update by the end of the month. If she notices a reduction of migraines, I will request for prior authorization for this treatment. Alternative treatment using Botox was also discussed. I also told her that Botox can also be applied to the facial allodynia. The patient was also unsteady and this may be related to her AEDs. I also discussed on having her B12 checked. The patient understood the diagnosis and plan of care. Return office visit in 6 months or earlier if she will need Botox. Chief Complaint Patient presents with ??? Headache HISTORY OF PRESENT ILLNESS: Aimta Simpson is a 44 y.o. right handed female. She was accompanied by her , Ace. She has frequent migraines at least 2 years. However, in the last 6 months, she reports worsening migraines. Location: left temporal, left mid-temporal region and around the eyes Quality: sharp pain Duration: > 4 hours Frequency: almost every 7 PM after supper; she has a dull headache everyday (30 days). Severe pain every evening. She has constant allodynia of the left face where she had her surgery. She has light sensitivity, left ear sound sensitivity, tinnitus. She prefers to stay in a dark roomand sleep. Sleep helps with her headaches. She has DENNYS but cannot tolerate the CPAP because of the left facial pain. She had dog attack and cause cranial and jaw injury. She had to undergo multiple surgeries. She takes narcotics for the facial pain and headaches. She takes Gabapentin, primidone, Keppra, lamotrigine, Wellbutrin. Her DENI is better controlled and managed by Dr. Augustine. She does not drink coffee or soda. She does not smoke or drink alcohol. She has poor sleep quality.She reports good hydration. She has mixed diet. Allergies Allergen Reactions ??? Adhesive Tape-Silicones Hives ??? Erythromycin Other (See comments) and Hallucinations Reaction: Neuro problems, , ??? Silicone Hives ??? Unclassified Drug Swelling ALLERGY TO CATHETERS Current Outpatient Medications Medication Sig Dispense Refill ??? buPROPion SR (WELLBUTRIN SR) 150 mg 12 hr tablet Take 150 mg by mouth 2 times daily ??? calcium carbonate (TUMS) 500 mg calcium [...] by mouth 2 (two) times a day 90 tablet 11 No current facility-administered medications for this visit. Past Medical History: Diagnosis Date ??? Depression Depression ??? HX OTHER MEDICAL heart attack; Comments: [facility] 02/14/2015 - ??? HX OTHER MEDICAL back pain; Comments: [facility] 02/14/2015 - ??? HX OTHER MEDICAL Missed x2; Comments: [facility] 06/13/2016 - ??? HX OTHER MEDICAL Dog attack; Comments: [facility] 06/13/2016 - ??? HX OTHER MEDICAL Abnormal pap - 'precancer cells'; Comments: [facility] 06/13/2016 - ??? HX OTHER MEDICAL 2003 Left titanium joint 2003; Comments: [facility] 09/23/2016 [...] Cryoablation ??? TUBAL LIGATION Bilateral tubal ligation Past Surgical History: Procedure Laterality Date ??? OTHER SURGICAL HISTORY left jaw ??? OTHER SURGICAL HISTORY left ear ??? OTHER SURGICAL HISTORY Missed x2: D&C ??? OTHER SURGICAL HISTORY Dog attack: Jaw surgery x 49 ??? OTHER SURGICAL HISTORY Abnormal pap - 'precancer cells': Cryoablation ??? TUBAL LIGATION Bilateral tubal ligation Social History Social History Narrative ??? Not on file Review of Systems Constitutional: Positive for appetite change. Negative for fever. HENT: Positive for tinnitus. Negative for trouble swallowing. Eyes: Positive for photophobia. Respiratory: Negative for apnea and chest tightness. Cardiovascular: Negative for chest pain. Gastrointestinal: Negative for constipation, diarrhea and nausea. Endocrine: Negative for cold intolerance and heat intolerance. Genitourinary: Negative for difficulty urinating. Musculoskeletal: Positive for neck pain. Skin: Negative. Neurological: Positive for dizziness and headaches. Psychiatric/Behavioral: Positive for sleep disturbance. The patient is nervous/anxious. PHYSICAL EXAMINATION: Vitals: 03/09/20 1223 BP: 100/66 BP Location: Left arm Patient Position: Sitting Pulse: 91 Temp: 37 ??C (98.6 ??F) Weight: 107 kg (236 lb) Height: 165.1 cm (5' 5 ) Physical Exam Constitutional: She is oriented to person, place, and time. No distress. Obese HENT: Head: Normocephalic and atraumatic. Allodynia on the left temporal and pre-auricular region Eyes: Conjunctivae are normal. Neck: Neck supple. Limited neck movement when turning towards the left Pulmonary/Chest: Effort normal. Neurological: She is oriented to person, place, and time. She has normal strength. She has an abnormal Romberg Test and an abnormal Tandem Gait Test. She has a normal Cbdjlh-Hbvm-Vuxdid Test and a normal Heel to Garner Test. Reflex Scores: Tricep reflexes are 2+ on the right side and 2+ on the left side. Bicep reflexes are 2+ on the right side and 2+ on the left side. Brachioradialis reflexes are 2+ on the right side and 2+ on the left side. Patellar reflexes are 1+ on the right side and 1+ on the left side. Achilles reflexes are 1+ on the right side and 1+ on the left side. Psychiatric: She has a normal mood and affect. Her speech is normal and behavior is normal. Judgment and thought content normal. Neurologic Exam Mental Status Oriented to person, place, and time. Attention: normal. Concentration: normal. Speech: speech is normal Level of consciousness: alert Knowledge: good. Normal comprehension. Normal recent and delayed recall Cranial Nerves Cranial nerves II through XII intact. Motor Exam Muscle bulk: normal Overall muscle tone: normal Strength Strength 5/5 throughout. Sensory Exam Light touch normal. Gait, Coordination, and Reflexes Coordination Romberg: positive Finger to nose coordination: normal Heel to garner coordination: normal Tandem walking coordination: abnormal Tremor Resting tremor: absent Intention tremor: absent Action tremor: absent Reflexes Right brachioradialis: 2+ Left brachioradialis: 2+ Right biceps: 2+ Left biceps: 2+ Right triceps: 2+ Left triceps: 2+ Right patellar: 1+ Left patellar: 1+ Right achilles: 1+ Left achilles: 1+ Vwkr-dq-nhrg time with physician began: 12:30 PM Inzj-iv-ngci time with physician ended: 1:10 PM I spent more than 50% of the time counseling the patient on the diagnosis, diagnostic procedures and treatment options. Signed by: Soto Vera MD documented in this encounter Plan of Treatment Not on file documented as of this encounter Visit Diagnoses Diagnosis Intractable chronic migraine without aura and without status migrainosus- Primary Other generalized epilepsy, intractable, without status epilepticus (HCC) documented in this encounter Orders Outpatient Referral Count Last Ordered Date st Ordered Date AMB REFERRAL TO NEUROLOGY 1 03/09/2020 documented in this encounter Care Teams Caregiver Assisted Living Relationship Specialty Start Date End Date Sg Richards MD PCP - General 10/17/16 07/04/21 documented as of this encounter
--- OUTSIDE RECORDS SUMMARY | 2024-07-16 12:53 | XMS_ITS | Encounter Summary ---
Author Organization [facility] Address [address] [place] [address] Phone Care Team Providers Care Business Process Modeler Name Role Phone Sg Richards MD Primary Care Provider + Reason for Visit * Reason Onset Date Comments Question 10/10/2020 Has question abo ut injection Encounter Details Date Type Department Care Team (Late st Contact Info) Description 10/10/2020 Telephone [facility] Epilepsy [address] [facility] 6[address] [place] [address] [place] [address] Sophia Robles Question (Has question about injection) Social History Tobacco Use Types Packs/Day Years [...] Telephone Encounter - Allie Lopez RN - 10/10/2020 1:19 PM CDT Contacted pt by phone. (I misunderstood and thought this was PA related.) Pt states she is not sure the Aimovig 70mg is working. Has only done one injection (09/17/2020). She stated she has seen some improvement with less intensity since the injection. I advised this medication can take 3-6 months to fully take effect and she may not see a big response with just the first dose. Recommended to continue using the Aimovig and to call back for any side effects or other concerns. She voiced understanding and agreed to plan. Gave number to the office for future reference. * Telephone Encounter - Sophia Robles - 10/10/2020 1:06 PM CDT Patient LVM asking to speak the Dr. Valenzuela's nurse regarding Aimovig injection. She left this message in the Epilepsy nurses VM box. Please call patient back at [phone].......nb documented in this encounter Plan of Treatment Not on file documented as of this encounter Visit Diagnoses Not on filedocumented in this encounter Care Teams Business Process Modeler Relationship Specialty Start Date End Date Sg Richards MD PCP - General 10/17/16 07/04/21 documented as of this encounter
--- OUTSIDE RECORDS SUMMARY | 2024-07-16 12:53 | XMS_ITS | Encounter Summary ---
Author Organization [facility] Address [address] [place] [address] Phone Care Team Providers Care Process Improvement Engineer Name Role Phone Davi Georges MD Primary Care Provider Reason for Visit * Reason Onset Date Comments Aimovig 70mg PA Renewal 07/17/2021 Encounter Details Date Type Department Care Team (Late st Contact Info) Description 07/17/2021 Telephone [facility] General Neurology [address] [facility] 6th [address] [place] [address] Mone Pascual PA [address] [place] [address] Aimovig 70mg PA Renewal Social History Tobacco Use Types Packs/Day Years [...] Telephone Encounter - Allie Lopez RN - 07/17/2021 1:20 PM BLOW MACHINE TENDER STARCH SPRAYING Received fax from [employer] (see media) PA Cancelled This medication or product was previously approved on [id number] from 07/20/2021-07/19/2022. MACHINE TENDER STARCH SPRAYING * Telephone Encounter - Allie Lopez RN - 07/17/2021 12:51 PM BLOW MACHINE TENDER STARCH SPRAYING Received automatic PA renewal request on CMM Ferrer: [id number] AIMOVIG 70mg AUTO INJ [employer] MedD ID: [id number] Submitted and pending response. MACHINE TENDER STARCH SPRAYING documented in this encounter Plan of Treatment Not on file documented as of this encounter Visit Diagnoses Not on filedocumented in this encounter Care Teams Process Improvement Engineer Relationship Specialty Start Date End Date Davi Georges MD [facility] [place] [place] [address] PCP - General Family Medicine 07/05/21 documented as of this encounter
--- OUTSIDE RECORDS SUMMARY | 2024-07-16 12:53 | XMS_ITS | Encounter Summary ---
Author Organization [facility] Address [address] [place] [address] Phone Care Team Providers Care Materials Handling Equipment Operator Name Role Phone Sg Richards MD Primary Care Provider + Reason for Visit * Reason Onset Date Comments Aimovig 70mg PA 09/12/2020 Encounter Details Date Type Department Care Team (Late st Contact Info) Description 09/12/[address] [facility] General Neurology [address] [facility] 6th [address] [place] [address] Soto Vera MD [address] [place] [address] Aimovig 70mg PA Social History Tobacco Use Types Packs/Day Years [...] Telephone Encounter - Allie Lopez RN - 09/13/2020 7:26 AM VISUAL TRAINING AIDE Received notification on CMM PA APPROVED Ref number: [id number] Exp: 07/19/2021 Pharmacy is closed. Left VM with approval information. AL TRAINING AIDE * Telephone Encounter - Allie Lopez RN - 09/12/2020 3:44 PM VISUAL TRAINING AIDE Received PA request via fax from pharmacy. AIMOVIG 70mg auto inj [employer] ID: [id number] Initiated PA on CM Ferrer: [id number] Submitted and pending response. AL TRAINING AIDE documented in this encounter Plan of Treatment Not on file documented as of this encounter Visit Diagnoses Not on filedocumented in this encounter Care Teams Materials Handling Equipment Operator Relationship Specialty Start Date End Date Sg Richards MD PCP - General 10/17/16 07/04/21 documented as of this encounter
--- OUTSIDE RECORDS SUMMARY | 2024-07-16 12:53 | XMS_ITS | Encounter Summary ---
Author Organization [facility] Healthcare Address [address] [place] [address] Care Team Providers Care Assembly Line Driver Name Role Phone Sg Richards MD Primary Care Provider + Reason for Visit * Reason Comments Sore Throat Nasal Congestion Encounter Details Date Type Department Care Team (Late st Contact Info) Description 05/05/2021 9:01 AM CDT - 05/05/2021 9:38 AM CDT Emergency [facility] Emergency Department [address] [place], [place] [id number] Upper respiratory tract infection, unspecified type (Primary Dx); Nasal congestion; Acute non-recurrent maxillary sinusitis; Acute bronchitis, unspecified organism Discharge Disposition: Discharge to home or self [...] Sign Reading Time Taken Comments Blood Pressure 133/88 05/05/2021 8:48 AM CDT Pulse 88 05/05/2021 8:48 AM CDT Temperature 36.1 ??C (96.9 ??F) 05/05/2021 8:48 AM CD T Respiratory Rate 18 05/05/2021 8:48 AM CDT Oxygen Saturation 95% 05/05/2021 8:48 AM CDT Inhaled Oxygen Concentration - - Weight 95.3 kg (210 lb) 05/05/2021 8:48 AM CDT Height 162.6 cm (5' 4 ) 05/05/2021 8:48 AM CDT Body Mass Index 36.05 05/05/2021 8:48 AM CDT documented in this encounter Discharge Diagnoses Diagnosis Acute maxillary sinusitis, unspecified - ACUTE MAXILLARY SINUSITIS, UNSPECIFIED Acute bronchitis, unspecified - ACUTE BRONCHITIS, UNSPECIFIED Essential (primary) hypertension - ESSENTIAL (PRIMARY) HYPERTENSION Unspecified essential hypertension Epilepsy, unspecified, not intractable, without status epilepticus (HCC) - EPILEPSY, UNSPECIFIED, NOT INTRACTABLE, WITHOUT STATUS EPILEPTICUS Old myocardial infarction - OLD MYOCARDIAL INFARCTION documented in this encounter Discharge Instructions * Discharge Instructions* Roselia Baltazar NP - 05/05/2021 9:34 AM CDT Use over the counter Tylenol and Motrin per manufacturers guidelines for relief of pain and fever. Follow up with Dr. Richards without fail. * Attachments The following attachments cannot be sent through Care Everywhere. * Acute Bronchitis (AfterCare(R) Instructions(ER/ED)) (Malawian) * Sinusitis (No Antibiotics) (Malawian) documented in this encounter Medications at Time of Discharge calcium carbonate (TUMS) 500 mg calcium (200 mg of elemental calcium) chewable tablet Take by mouth daily as needed pantoprazole DR (PROTONIX) 40 mg EC tablet 3 02/05/2019 loratadine (CLARITIN) 10 mg tablet Take 1 tablet (10 mg total) by mouth daily 30 tablet 05/05/2021 1 amoxicillin-clavul anate (AUGMENTIN) 875-125 mg per tablet Take 1 tablet by mouth every 12 (twelve) hours 14 tablet 05/05/2021 2 benzonatate (TESSALON) 100 mg capsuleIndications :Cough Take 1 capsule (100 mg total) by mouth every 8 (eight) hours 21 capsule 05/05/2021 2 erenumab-aooe (AIMOVIG) 70 mg/mL auto-injector subcutaneous injection Inject 1 mL (70 mg total) under the skin every 30 (thirty) days 1 Syringe 11 01/03/2021 2 gabapentin (NEURONTIN) 600 mg tablet TK 2 TS PO TID 1 03/02/2019 4 HYDROcodone-acetam inophen (NORCO) 5-325 mg per tablet TK 1 T PO Q 6 H PRN 0 02/22/2019 3 ibuprofen (ADVIL,MOTRIN) 800 mg tablet Take 800 mg by mouth every 8 (eight) hours 11/04/2018 2 lamoTRIgine (LaMICtal) 100 mg tablet Take 3.5 tablets (350 mg total) by mouth 2 (two) times a day 210 tablet 11 01/07/2021 1 levETIRAcetam (KEPPRA) 1,000 mg tablet Take 2 tablets (2,000 mg total) by mouth 2 (two) times a day 120 tablet 01/07/2021 1 primidone (MYSOLINE) 50 mg tablet Take 5 tablets (250 mg total) by mouth 2 (two) times a day Increase by 1 tab (50 mg) each week to go from 150 mg twice daily to 250 mg twice daily. 300 tablet 01/07/2021 1 traZODone (DESYREL) 100 mg tablet 05/26/2016 3 documented as of this encounter Ordered Prescriptions Prescription Sig Dispense Quantity Refills Last Filled Start Date End Date benzonatate (TESSALON) 100 mg capsuleIndications :Cough Take 1 capsule (100 mg total) by mouth every 8 (eight) hours 21 capsule 05/05/2021 2 loratadine (CLARITIN) 10 mg tablet Take 1 tablet (10 mg total) by mouth daily 30 tablet 05/05/2021 1 amoxicillin-clavul anate (AUGMENTIN) 875-125 mg per tablet Take 1 tablet by mouth every 12 (twelve) hours 14 tablet 05/05/2021 2 documented in this encounter Discharge Disposition Disposition Code Departure Means Destination Discharge to home or self care documented in this encounter ED Notes * Roselia Baltazar NP - 05/05/2021 9:29 AM CDT HPI Chief Complaint Patient presents with ??? Sore Throat ??? Nasal Congestion 46 y.o. year old female with Past Medical History: No date: Depression Comment: Depression No date: HX OTHER MEDICAL Comment: heart attack; Comments: S 02/14/2015 - No date: HX OTHER MEDICAL Comment: back pain; Comments: S 02/14/2015 - No date: HX OTHER MEDICAL Comment: Missed x2; Comments: RED 06/13/2016 - No date: HX OTHER MEDICAL Comment: Dog attack; Comments: RED 06/13/2016 - No date: HX OTHER MEDICAL Comment: Abnormal pap - 'precancer cells'; Comments: RED 06/13/2016 - No date: HX OTHER MEDICAL Comment: 2002 Left titanium joint 2002; Comments: [facility] 09/23/2016 - No date: HX OTHER MEDICAL Comment: 2010 Left ear cyst.; Comments: [facility] 09/23/2016 - No date: Hypertension Comment: Hypertension No date: Seizure disorder (CMS/HCC) ([facility]) Comment: Seizure disorder; accompanied by family presents to ED with c/o Sore Throat Nasal Congestion Denies fever, chills, nausea, vomiting, diarrhea, SOB, CP, numbness, tingling. Pt states symptoms started 3 weeks ago. Pt was evaluated at PMD office 5 days ago and advised to get something over the counter to help with congestion. Pt is able to speak in full sentences. No muffled voice or drooling. Productive cough with phlegm per patient. Denies other complaint at this time. Patient History: Patient Active Problem List Diagnosis Date Noted ??? Intractable chronic migraine without aura and without status migrainosus 03/09/2020 ??? Cholecystitis, acute ??? Elevated liver function tests ??? Right lower quadrant abdominal pain ??? Seizures (CMS/HCC) (HCC) 01/09/2018 ??? Arthritis 09/07/2017 ??? Knee pain 09/22/2016 ??? Current smoker 09/22/2016 ??? Obesity with body mass index 30 or greater 06/04/2016 ??? Sleep apnea 06/04/2016 ??? Epilepsy (HCC) 06/04/2016 ??? Chronic pain 01/09/2016 ??? Gastroesophageal reflux disease 01/09/2016 ??? 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 Depression 09/24/2015 Past Medical History: [...] MEDICAL 2002 Left titanium joint 2003; Comments: [facility] 09/23/2016 - ??? HX OTHER MEDICAL 2010 Left ear cyst.; Comments: [facility] 09/23/2016 - ??? Hypertension Hypertension ??? Seizure disorder (CMS/HCC) ([facility]) Seizure disorder Past Surgical History: Procedure Laterality [...] Review of Systems Review of Systems Constitutional: Negative. HENT: Positive for congestion. Respiratory: Positive for cough. Cardiovascular: Negative. Gastrointestinal: Negative. Musculoskeletal: Negative. Skin: Negative. Neurological: Negative. All other systems reviewed and are negative. Physical Exam ED Triage Vitals [05/05/21 0848] Temp Pulse Resp BP SpO2 36.1 ??C (96.9 ??F) 88 18 133/88 95 % Temp src Heart Rate Source Patient Position BP Location FiO2 (%) Temporal -- -- -- -- Physical Exam Vitals and nursing note reviewed. Constitutional: General: She is awake. She is not in acute distress. Appearance: Normal appearance. She is well-developed. She is not ill-appearing, toxic-appearing or diaphoretic. HENT: Head: Normocephalic and atraumatic. Right Ear: Hearing, ear canal and external ear normal. Tympanic membrane is bulging. Left Ear: Hearing, tympanic membrane, ear canal and external ear normal. Ears: Comments: Clear fluid behind Right TM. No erythema. Nose: Right Sinus: Maxillary sinus tenderness present. No frontal sinus tenderness. Left Sinus: Maxillary sinus tenderness present. No frontal sinus tenderness. Mouth/Throat: Lips: [place]. Mouth: Mucous membranes are moist. Eyes: General: Lids are normal. Cardiovascular: Pulses: Normal pulses. No decreased pulses. Pulmonary: Effort: Pulmonary effort is normal. Breath sounds: Normal breath sounds and air entry. No stridor, decreased air movement or transmitted upper airway sounds. No decreased breath sounds, wheezing, rhonchi or rales. Abdominal: General: Abdomen is flat. Bowel sounds are normal. Palpations: Abdomen is soft. Tenderness: There is no abdominal tenderness. There is no right CVA tenderness or left CVA tenderness. Musculoskeletal: Cervical back: Full passive range of motion without pain, normal range of motion and neck supple. Lymphadenopathy: Cervical: No cervical adenopathy. Skin: General: Skin is warm. Capillary Refill: Capillary refill takes less than 2 seconds. Neurological: General: No focal deficit present. Mental Status: She is alert and easily aroused. Psychiatric: Behavior: Behavior is cooperative. [facility] MDM Final diagnoses: Upper respiratory tract infection, unspecified type Nasal congestion Acute non-recurrent maxillary sinusitis Acute bronchitis, unspecified organism Roselia Baltazar NP 05/05/21 0933 Cosigned by Luther Eastman MD at 05/05/2021 9:57 AM CDT Associated attestation - Luther Eastman MD - 05/05/2021 9:57 AM CDT ED Attestation Based on the medical record the care appears appropriate. * Katy Peters RN - 05/05/2021 8:46 AM CDT Patient presents to the ed with c.o. sore throat and runny nose for the past two weeks. Patient states that she went to the dr and was tested for covid and was negative. Patient states only thing shewas told to take was delsym. documented in this encounter Plan of Treatment Not on file documented as of this encounter Visit Diagnoses Diagnosis Upper respiratory tract infection, unspecified type- Primary Nasal congestion Other diseases of nasal cavity and sinuses Acute non-recurrent maxillary sinusitis Acute bronchitis, unspecified organism documented in this encounter Care Teams Assembly Line Driver Relationship Specialty Start Date End Date Sg Richards MD PCP - General 10/17/16 07/04/21 documented as of this encounter
--- OUTSIDE RECORDS SUMMARY | 2024-07-16 12:53 | XMS_ITS | Encounter Summary ---
Author Organization [facility] Address [address] [place] [address] Phone Care Team Providers Care Rope Tow Operator Name Role Phone Davi Georges MD Primary Care Provider Encounter Details Date Type Department Care Team (Late st Contact Info) Description 09/27/2021 Telephone [facility] General Neurology [address] [facility] 6th [place] [address] [place] [address] Cindy Mancia RN Social History [...] Telephone Encounter - Cindy Mancia RN - 09/27/2021 10:42 AM GYMNASTIC COACH All information below reviewed with her, including triptan dosing. She will will call back as needed and is grateful for your care. ASTIC COACH * Telephone Encounter - Mone Pascual PA - 09/27/2021 10:23 AM GYMNASTIC COACH I sent Rx for Rizatriptan 5mg to her pharmacy. Same instructions as sumatriptan - 1 prn and may rpeat after 2 hrs if needed. Do not take with Sumatriptan. I sent Rx for low dose, she may call if doseneeds to be increased. If she has difficulty tolerating Rizatriptan also, we can see if insurance will cover Ubrelvy (which she said she [facility] AST[facility]ACH * Telephone Encounter - Cindy Mancia RN - 09/27/2021 9:49 AM CST Please review She is asking for a different as needed medication. She tried two doses of sumatriptan to date. The first dose she had mild dizziness. The following day, she tried another dose and she had severe dizziness, her had to assist her in walking andshe had some confusion.. Doulble vision. She went to sleep so she didn't know how ling the symptoms lasted. After the first dose it only lasted 5 minutes or so. It definitely helped the migraine pain and quite quickly. ASTIC COACH documented in this encounter Plan of Treatment Not on file documented as of this encounter Visit Diagnoses Not on filedocumented in this encounter Care Teams Rope Tow Operator Relationship Specialty Start Date End Date Davi Georges MD [address] [place] [address] PCP - General Family Medicine 07/05/21 documented as of this encounter
--- OUTSIDE RECORDS SUMMARY | 2024-07-16 12:53 | XMS_ITS | Encounter Summary ---
Author Organization [facility] Address [address] [place] [address] Phone Care Team Providers Care Dozer Operator Name Role Phone Davi Georges MD Primary Care Provider [phone] Reason for Visit * Consultation (Routine) - Canceled Specialty Diagnoses / Procedures Referred By Contac t Referred To Contact Neurology Diagnoses Other generalized epilepsy, intractable, without status epilepticus (HCC) Sg Richards MD [address] [place] [id number] Phone: tel: fax: [facility] (All Locations) Referral ID Status Reason Start Date Expiration Date Visits Requested Visits Authorized [id number] Canceled Specialty Services Required 06/26/2021 07/26/2022 1 1 Encounter Details Date Type Department Care Team (Late st Contact Info) Description 07/05/2021 9:00 AM INSIDE SALES TERRITORY MANAGER Telemedicine [facility] Epilepsy [address] [facility] [address]th [place] [address] [place] [address] Jerry Augustine MD PhD [address] [place] [address] Seizures (CMS/HCC) (HCC) (Primary Dx) Social History Tobacco Use [...] a day 300 tablet 11 07/05/2021 2 primidone (MYSOLINE) 50 mg tablet Take 5 tablets (250 mg total) by mouth 2 (two) times a day Increase by 1 tab (50 mg) each week to go from 150 mg twice daily to 250 mg twice daily. 300 tablet 07/05/2021 1 levETIRAcetam (KEPPRA) 1,000 mg tablet Take 2 tablets (2,000 mg total) by mouth 2 (two) times a day 120 tablet 11 07/05/2021 2 lamoTRIgine (LaMICtal) 100 mg tablet Take 3.5 tablets (350 mg total) by mouth 2 (two) times a day 210 tablet 07/05/2021 2 documented in this encounter Progress Notes * Jerry Augustine MD PhD - 07/05/2021 9:00 AM CST Images from the original note were not included. Name: Kayla Avila Date of : 1975 PCP: Sg Richards MD Date: 07/05/2021 Provider: Jerry Augustine MD PhD Chief Complaint: [...] relationship with her with both involved in [employer] study and being prayer warriors. 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 Her mouth was wired shut for months. Ertapenem/infection likely triggered a seizure. She related that a friend she knew had VNS implanted and later had to be in a long term, so she is leery of VNS. 2018 [...] 70 mg. She reported feeling much better. Two visits ago, she reported increased seizures due [...] about talking to a counselor. I provided [email or web address] as well as the names and numbers for 3 of counselors in [place], [place]. We discussed that she was still having seizures after the last medication change, and the current trigger was not expected to go away soon, so I increased PRM from 75 mg bid to 150mg bid. Last visit, she reported less stress but still [...] lightheaded and dizzy getting out of the bathtuband fell breaking the toilet paper lomeli. She noted memory issues. She never actually went to a counselor, instead doing self-help, in part due to cost. She recounted issues with her mother. See last note. She thought counseling services through her yazidi might be a good idea. She agreed to increase PRM by 50 mg weekly to 250 mg bid. We discussed that for seizures PRM may be dosed typically 750-1500 mg per day, possibly as high as 2000 mg per day. We discussed that her situation (unclear etiology of all events with a past event on Amb EEG with no EEG correlate, multiple ALCOHOL LAW ENFORCEMENT AGENT active medications including seizure medications and pain [...] the testing if Medicare would cover it. There have been no significant communications since last visit. Today they report continued events but no falls. She does not think she has had any event with lossof awareness since last visit. She has had a very bad week in the setting of stress (07/03/21 was an anniversary of the passing of her dog and her father). After watching [email or web address] competition,she had repetitive jerks and twitches half the day, with no loss of awareness and eventually she felt tired, went to sleep, and woke up fine. She is feeling twitchy and/or staring off at least every other day. She thinks increasing the medication helped a lot. She is trying to take care of herself,trying to lose weight. Her new PMD Dr. Georges checked many labs recently including CBC, CMP, and Vitamin D. Her liver and kidney measures were reportedly normal. She is now on supplemental Vitamin D3 af ter a measured low Vitamin D. She has an upcoming surgery at [facility] to mobilize her jaw. She is waiting on workman's compensation to accept it before it can be scheduled. We discussed pursuing Video/EEG if she starts having events with loss of awareness again. Her PMD wanted to talk with me, so I will set up a phone call. She has been on Valium 5 mg [...] LTG, TPM, ZNS, or Onfi at the [facility]. She is currently on LEV 2000 mg bid (no side effects), LTG 350 mg bid (no side effects), and PRM 250 mg bid (no side effects). She is also on GBT 1200 mg bid for pain (no side effects). -Ambulatory EEG 05/27/16 at [facility] revealed occasional poorly formed <1 second generalized discharges consistent with a well-controlled generalized epilepsy and an event with dizziness/head pain without EEG correlate (report personally reviewed). -48 hour Ambulatory EEG at [facility] (Dr. Ray) revealed 4 Hz generalized spike and wave discharges in short runs. (report personally reviewed). -Brain MRI 01/26/16 at [facility] which revealed a normal study. (report [...] medication list which includes the following prescription(s): amoxicillin-clavulanate, benzonatate, calcium carbonate, erenumab-aooe, gabapentin, hydrocodone-acetaminophen, ibuprofen, lamotrigine, [...] this visit. ACTIVE PROBLEMS Problem List Neuro Seizures (CMS/HCC) ([facility]) - Primary H Kayla has a past medical history of Depression, OTHER MEDICAL, OTHER MEDICAL, OTHER MEDICAL, OTHER MEDICAL, OTHER MEDICAL, OTHER MEDICAL, OTHER MEDICAL, Hypertension, and Seizure disorder (CMS/HCC) ([facility]). PSH She has a past surgical history that includes Other surgical history; Other surgical history; Othersurgical history; Other surgical history; Tubal ligation; and Other surgical history. SOCIAL HISTORY The patient is and lives with her in [place], [place]. 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 She does not drive. FAMILY HISTORY [...] very good seizure control for >1 year. Two visits ago, I recommended counseling for stressors and increased PRM from 75 mg bid to 150 mg bid. Last visit, I recommended counseling services through her yazidi. She still had a few lightheaded events with loss of memory, about once per week. She had had at least two larger seizures with falls in 10/2020 and 11/2020. She was noting memory issues. She agreed to increase PRM by 50 mg weekly to250 mg bid. We discussed that for seizures PRM may be dosed typically 750-1500 mg per day, possiblyas high as 2000 mg per day. Today they report continued events but no falls. She does not think she has had any event with lossof awareness since last visit. She has had a very bad week in the setting of stress (07/03/21 was an anniversary of the passing of her dog and her father). After watching [employer],she had repetitive jerks and twitches half the day, with no loss of awareness and eventually she felt tired, went to sleep, and woke up fine. She is feeling twitchy and/or staring off at least every other day. She thinks increasing the medication helped a lot. She is trying to take care of herself,trying to lose weight. Her new PMD Dr. Georges checked many labs recently including CBC, CMP, and Vitamin D. Her liver and kidney measures were reportedly normal. She is now on supplemental Vitamin D3 af ter a measured low Vitamin D. She has an upcoming surgery at [facility] to mobilize her jaw. She is waiting on workman's compensation to accept it before it can be scheduled. We discussed pursuing Video/EEG characterization if she starts having events with loss of awareness again. Her new PMD wanted to talk with me, so I will set up a phone call. She has had a tubal ligation. She does not drive. Seizure precautions including no driving, heights, swimming or bathing alone, operating heavy machinery or other activities during which a seizure would endanger her or others have been discussed. Plan 1. Continue PRM 250 mg bid, LTG 350 mg bid, and LEV 2000 mg bid. 2. Video/EEG characterization if events with loss of awareness recur. 3. Continue GBT 1200 mg bid for pain prescribed by another physician. I do not recommend increasingsignificantly above this dose as doing so has worsened her seizures in the past. 4. PMD to address mood. I have provided counseling information and recommendations. 5. She does not drive. Seizure precautions. 6. F/U ~6-9 months. Call as needed. Telemedicine Visit Documentation This was a telemedicine visit with Kayla Avila and her which took place via TelephoneInability or lack of knowledge to set up audio/visual visit. During the visit, I was located at home and the patient was located at home in the state of [place]. The patient visit started at 9:01 AM and ended at 9:36 AM. Total encounter time was 49 minutes, which includes time spent today on [...] a telephone or video visit during the [facility]- public health emergency was explained to them. After being given an opportunity to ask questions about and discuss this typeof visit, they verbally consented to proceeding with the telephone/video visit and understand that this service replaces an office visit. Jerry Augustine MD PhD DE SALES TERRITORY MANAGER documented in this encounter Plan of Treatment Not on file documented as of this encounter Visit Diagnoses Diagnosis Seizures (HCC)- Primary Other convulsions documented in this encounter Discontinued Medications Medication Sig Discontinue Reason Start Date End Da te lamoTRIgine (LaMICtal) 100 mg tablet Take 3.5 tablets (350 mg total) by mouth 2 (two) times a day Reorder 01/07/2021 07/05/2021 levETIRAcetam (KEPPRA) 1,000 mg tablet Take 2 tablets (2,000 mg total) by mouth 2 (two) times a day Reorder 01/07/2021 07/05/2021 primidone (MYSOLINE) 50 mg tablet Take 5 tablets (250 mg total) by mouth 2 (two) times a day Increase by 1 tab (50 mg) each week to go from 150 mg twice daily to 250 mg twice daily. Reorder 01/07/2021 07/05/2021 primidone (MYSOLINE) 50 mg tablet Take 5 tablets (250 mg total) by mouth 2 (two) times a day Increase by 1 tab (50 mg) each week to go from 150 mg twice daily to 250 mg twice daily. 07/05/2021 07/05/2021 documented as of this encounter Care Teams Dozer Operator Relationship Specialty Start Date End Date Davi Georges MD [address] [place] [address] PCP - General Family Medicine 07/05/21 documented as of this encounter
--- OUTSIDE RECORDS SUMMARY | 2024-07-16 12:53 | XMS_ITS | Encounter Summary ---
Author Organization [facility] Address [address] [place] [address] Phone Care Team Providers Care Sheet Cutting Operator Name Role Phone Sg Richards MD Primary Care Provider + Encounter Details Date Type Department Care Team (Late st Contact Info) Description 01/07/2021 Telephone [facility] Epilepsy [address] [facility] 6th [place] [address] [place] [address] Joan Anaya RN Social History Tobacco Use Types Packs/Day [...] encounter Miscellaneous Notes * Telephone Encounter - Joan Anaya RN - 01/07/2021 3:53 PM CDT Called patient and spoke to her . Reviewed the titration of her Primidone as noted below in Dr. Augustine's message. verbalized understanding. Encouraged him to call with any questions or concerns. * Telephone Encounter - Joan Anaya RN - 01/07/2021 3:50 PM CDT ----- Message from Jerry Augustine MD PhD sent at 01/07/2021 3:27 PM CDT ----- Regarding: correction to titration instructions Please call patient's and correct the titration. I thought she was on 150 mg tabs, but she is on 50 mg tabs of Primidone. There are no 150 mg tabs for PRM, just 50 and 250 mg. I told her to increase from 150 mg bid to 225 mg bid increasing by 75 mg weekly. Please change that to increasing by 50 mg weekly to 250 mg bid. She will increase from 3 tabs twicedaily to 5 tabs twice daily. Week 1: 150/200 mg Week 2: 200 mg bid Week 3: 200/250 mg Week 4 and continue: 250 mg bid I already corrected the note and the prescription. Thanks, Will Augustine documented in this encounter Plan of Treatment Not on file documented as of this encounter Visit Diagnoses Not on filedocumented in this encounter Care Teams Sheet Cutting Operator Relationship Specialty Start Date End Date Sg Richards MD PCP - General 10/17/16 07/04/21 documented as of this encounter
--- OUTSIDE RECORDS SUMMARY | 2024-07-16 12:53 | XMS_ITS | Encounter Summary ---
Author Organization [facility] Address [address] [place] [address] Phone Care Team Providers Care Electric Lift Truck Driver Name Role Phone Davi Georges MD Primary Care Provider [phone] Encounter Details Date Type Department Care Team (Late st Contact Info) Description 07/05/2021 Telephone [facility] Epilepsy [address] [facility] 6th [place] [address] [place] [address] Jerry Augustine MD PhD [address] [place] [address] Social History Tobacco Use Types [...] Miscellaneous Notes * Telephone Encounter - Valery Grace MA - 07/05/2021 1:31 PM PROTECTION SPECIALIST I called and spoke with Dr. Georges's. Dr. Augustine can call him anytime to discuss pt care. That's his direct number. ECTION SPECIALIST * Telephone Encounter - Lin Beaulieu RN - 07/05/2021 11:09 AM PROTECTION SPECIALIST ----- Message from Jerry Augustine MD PhD sent at 07/05/2021 11:04 AM PROTECTION SPECIALIST ----- Regarding: Set up call with PMD in 07/2021 Please arrange a phone call with her new PMD Dr. Davi Georges in 07/2021. I have more time on Mondays and Fridays generally. He requested my email, but I do not email doctors or patients usually with rareexceptions. This was explained as a one- time conversation to be on the same page about the patient.His phone number is in the chart, and I confirmed it is correct. Will ECTION SPECIALIST documented in this encounter Plan of Treatment Not on file documented as of this encounter Visit Diagnoses Not on filedocumented in this encounter Care Teams Electric Lift Truck Driver Relationship Specialty Start Date End Date Davi Georges MD [address] [place] [address] PCP - General Family Medicine 07/05/21 documented as of this encounter
--- OUTSIDE RECORDS SUMMARY | 2024-07-16 12:53 | XMS_ITS | Encounter Summary ---
Author Organization [facility] Healthcare Address [address] [place] [address] Care Team Providers Care Internal Recruiter Name Role Phone Sg Richards MD Primary Care Provider + Reason for Referral * Diagnostic Imaging (Routine) - Closed Specialty Diagnoses / Procedures Referred By Suman perdue Referred To Contact Diagnoses Encounter for screening mammogram for malignant neoplasm of breast Procedures Screening Mammogram Bilateral W Radha Adamson MD [address] [place] [address] Phone: tel: fax: [address] [phone] Referral ID Status Reason Start Date Expiration Date Visits Re quested Visits Authorized [id number] Closed 11/12/2020 12/12/2021 1 1 Reason for Visit * Diagnostic Imaging (Routine) - Closed Specialty Diagnoses / Procedures Referred By Suman perdue Referred To Contact Diagnoses Encounter for screening mammogram for malignant neoplasm of breast Procedures Screening Mammogram Bilateral W Radha Adamson MD [address] [place] [address] Phone: tel: fax: [address] [phone] Referral ID Status Reason Start Date Expiration Date Visits Re quested Visits Authorized [id number] Closed 11/12/2020 12/12/2021 1 1 Encounter Details Date Type Department Care Team (Latest Contact Info) Description 12/04/2020 4:40 PM CDT - 12/04/2020 11:59 PM CDT Hospital Encounter [facility] [address] [place] [address] Radha Davidson MD [address] [place] [address] [place], [place] [id number] Encounter for screening mammogram for malignant neoplasm [...] - Inhaled Oxygen Concentration - - Weight 90.3 kg (199 lb) 12/04/2020 4:45 PM CDT Height 162.6 cm (5' 4 ) 12/04/2020 4:45 PM CDT Body Mass Index 34.16 12/04/2020 4:45 PM CDT documented in this encounter Medications at Time of Discharge calcium carbonate (TUMS) 500 mg calcium (200 mg of elemental calcium) chewable tablet Take by mouth daily as needed pantoprazole DR (PROTONIX) 40 mg EC tablet 3 02/05/2019 erenumab-aooe (AIMOVIG) 70 mg/mL auto-injector subcutaneous injection Inject 1 mL (70 mg total) under the skin every 30 (thirty) days 1 Syringe 11 09/10/2020 1 gabapentin (NEURONTIN) 600 mg tablet TK 2 [...] a day 210 tablet 11 07/10/2020 1 levETIRAcetam (KEPPRA) 1,000 mg tablet Take 2 tablets (2,000 mg total) by mouth 2 (two) times a day 120 tablet 11 07/10/2020 1 primidone (MYSOLINE) 50 mg tablet Take 3 tablets (150 mg total) by mouth 2 (two) times a day 180 tablet 11 07/10/2020 1 traZODone (DESYREL) 100 mg tablet 05/26/2016 3 documented as of this encounter Discharge Disposition Disposition Code Departure Means Destination Discharge to home or self care documented in this encounter Plan of Treatment Not on file documented as of this encounter Procedures Procedure Name Priority Date/Time Associated Diagnosis Comments SCREENING MAMMOGRAM BILATERAL W MUNIR Schedule Routine, Read Routine (OP Routine) 12/04/2020 4:55 PM CDT Encounter for screening mammogram for malignant neoplasm of breast documented in this encounter Results * Screening Mammogram Bilateral W Munir (12/04/2020 4:55 PM CDT) Anatomical Region Laterality Modality Breast Bilateral Mammography 12/05/2020 9:28 AM CDT Impressions 12/05/2020 9:28 AM CDT There is no mammographic evidence of malignancy. A 1 year screening mammogram is recommended. BI-RADS: 1 - Negative. The patient will be entered into a reminder system with a target due date of 1 year for her next mammogram. Electronically signed by: MD Ab Rosa 12/05/2020 9:28 AM CDT EXAMINATION: SCREENING MAMMOGRAM BILATERAL W MUNIR ORDERING HEALTHCARE PROVIDER: RADHA DAVIDSON HISTORY: Routine screening mammography. COMPARISON: ??09/26/2016 TECHNIQUE: CC and MLO views of the bilateral breasts were obtained with digital technique using breast tomosynthesis with C view. Computer aided detection was utilized. FINDINGS: DENSITY: There are scattered fibroglandular elements in the bilateral breasts. BREASTS: There are no suspicious masses, suspicious calcifications, or other suspicious findings in either breast. There has been no suspicious interval change. us Radha Davidson MD IMG MAMMO PROCEDURES Fin al Result documented in this encounter Visit Diagnoses Diagnosis Encounter for screening mammogram for malignant neoplasm of breast documented in this encounter Care Teams Internal Recruiter Relationship Specialty Start Date End Date Sg Richards MD PCP - General 10/17/16 07/04/21 documented as of this encounter
--- OUTSIDE RECORDS SUMMARY | 2024-07-16 12:54 | XMS_ITS | Encounter Summary ---
Author Organization [facility] Care Team Providers Care Production Support Manager Name Role Phone Sg Richards MD Primary Care Provider + Encounter Details Date Type Department Care Team ([facility] st Contact Info) Description 06/04/2016 1:37 PM MITER SAW OPERATOR - 06/04/2016 11:59 PM [facility] Hospital Encounter [facility] Social History Tobacco Use Types Packs/Day Years Used Date Smoking Tobacco: Heavy Smoker Comments:Smoking History Pac ks/day: 0.5 Packs Alcohol Use Standard Drinks/Week Comments No 0 (1 standard drink = 0.6 oz pur e alcohol) Comments Unknown Sex and Gender Information Value Date Recorded Sex Assigned at Not on file Legal Sex Female 4:21 PM CDT Gender Identity Not on file Sexual Orientation Not on file documented as of this encounter Medications at Time of Discharge buPROPion XL (WELLBUTRIN XL) 150 mg 24 hr tablet take 1 tablet by oral route every day 0 0 02/14/2015 11/25/[address] (VOLTAREN) 75 mg EC tablet take 1 tablet by oral route 2 times every day 0 0 02/14/2015 11/25/2018 eslicarbazepine (APTIOM) 200 mg tablet take 2 tablet by oral route every day 0 0 02/14/2015 11/25/2018 gabapentin (NEURONTIN) 600 mg tablet take 1 tablet by oral route 3 times every day 0 0 02/14/2015 11/26/2018 gabapentin (NEURONTIN) 600 mg tablet take 2 tablet by oral route every 2 days 0 0 06/04/2016 11/25/2018 HYDROcodone-aceta minophen (NORCO) 5-325 mg per tablet take 1 - 2 Tablet by ORAL route every 4 - 6 hours as needed for pain 0 0 02/14/2015 11/25/2018 HYDROcodone-aceta minophen (NORCO) 5-325 mg per tablet take 1 Tablet by oral route tid as needed for pain 0 0 06/04/2016 11/26/2018 lacosamide (VIMPAT) 200 mg tablet take 1 tablet by oral route 2 times every day 0 0 02/14/2015 11/25/2018 lamoTRIgine (LaMICtal) 100 mg tablet take 1 tablet by oral route every 2 days 0 0 06/04/2016 01/12/2018 lamoTRIgine (LaMICtal) 100 mg tablet Take 350 mg by mouth 2 (two) times a day. 04/09/2016 01/12/2018 levETIRAcetam (KEPPRA) 1,000 mg tablet take 1 tablet by oral route every 12 hours 0 0 02/14/2015 12/18/2017 levETIRAcetam (KEPPRA) 1,000 mg tablet take 2 tablet by oral route every 12 hours 0 0 06/04/2016 12/18/[address] (PROTONIX) 40 mg EC tablet take 1 tablet by oral route every day 0 0 02/14/2015 11/26/[address] (PROTONIX) 40 mg EC tablet take 1 tablet by oral route every day 0 0 06/04/2016 11/25/2018 primidone (MYSOLINE) 50 mg tablet take 1 1/2 tablet by oral route every day 0 0 06/04/2016 12/18/2017 traZODone (DESYREL) 100 mg tablet take 1 tablet by oral route 2 times every day after meals 0 0 02/14/2015 11/25/2018 traZODone (DESYREL) 100 mg tablet take 1 tablet by oral route every day after meals 0 0 06/04/2016 11/25/2018 traZODone (DESYREL) 100 mg tablet 05/26/2016 09/29/2022 documented as of this encounter Plan of Treatment Not on file documented as of this encounter Procedures Procedure Name Priority Date/Time Associated Diagnosis Comments BACTERIAL VAGINOSIS/VAGINITIS PANEL Routine 06/04/2016 12:00 AM MITER SAW OPERATOR DISCHARGE LABORATORY CUMULATIVE REPORT 06/04/2016 documented in this encounter Results * Bacterial Vaginosis/Vaginitis Panel (06/04/2016 12:00 AM MITER SAW OPERATOR) 06/04/2016 12:0 0 AM MITER SAW OPERATOR Narrative CDR HISTORICAL RESULTS - 06/05/2016 5:38 PM MITER SAW OPERATOR ? [facility] Laboratory Microbiology ?[address] ??[place], [place] ??[address] ? Tele: ? Eduin Zamorano M.D. - [facility] - Dave Hendrix - ? Costing Manager ?? Patient: AMITA SIMPSON ? Admission #: ??[id number] ?? : 1975 ?Location: Laboratory ?? Gender: F ?? Admit Date: 06/04/2016 ? = = = = = = = = = = = = = = = = = = = = = = = = = = = = = = = = = = = = = = Bacterial Vaginosis/Vaginitis Panel ?Accession #: ?? [id number] ?? Genital ?? Collected ? 06/04/2016 ? Expected Result ? 20:15 ?? Neyda ? Not Detected ? Not Detected ?? Gardnerella ? Detected ? Not Detected ?? Trichomonas ? Not Detected ? Not Detected = = = = = = = = = = = = = = = = = = = = = = = = = = = = = = = = = = = = = ? Physician: ?[facility] Microbiology Report-[facility] ? us Historical Provider MD LAB MICROBIOLOGY - GENERA L ORDERABLES Final Result CDR HISTORICAL RESULTS * DISCHARGE LABORATORY CUMULATIVE REPORT (06/04/2016) Narrative 06/04/2016 Ordered by an unspecified provider. us Historical Provider MD LAB BLOOD ORDERABLES Anusha l Result documented in this encounter Visit Diagnoses Not on filedocumented in this encounter Care Teams Production Support Manager Relationship Specialty Start Date End Date Sg Richards MD PCP - General 02/14/15 07/15/16 documented as of this encounter
--- OUTSIDE RECORDS SUMMARY | 2024-07-16 12:54 | XMS_ITS | Encounter Summary ---
Author Organization [facility] Address [address] [place] [address] Phone Care Team Providers Care Executive Producer Promos Name Role Phone Sg Richards MD Primary Care Provider + Encounter Details Date Type Department Care Team (Late st Contact Info) Description 10/27/2016 Orders Only [facility] [address] [place] [address] Va Ferrell MD [address] [place] [address] Social History Tobacco Use Types Packs/Day Years Used Date Smoking Tobacco: Heavy Smoker Comments:Smoking History Pac ks/day: 0.5 Packs Alcohol Use Standard Drinks/Week Comments Yes 0 (1 standard drink = 0.6 oz [...] Procedure Name Priority Date/Time Associated Diagnosis Comments GONORRHEA DNA, THIN PREP Routine 10/27/2016 6:00 PM CDT documented in this encounter Results * Gonorrhea DNA, Thin Prep (10/27/2016 6:00 PM CDT) Gonorrheae (GC) DNA, thin prep Negative Negative STEPHAN ANGEL Comment: Interpretive Data This test has been developed to maximize the sensitivity of detection of infection while minimizing false positives, with the combined goals of enabling treatment of infection and interrupting the spread of infection, and is intended for medical purposes. Any result should be interpreted together with the clinical presentation and risk assessment, particularly the prevalence of infection in the patient's demographic group. ??Significant discrepancies should be evaluated by additional measures. Current Interpretive Data was last revised on 2015 Thin prep 10/27/2016 6:0 0 PM CDT 10/27/2016 8:57 PM CDT us Va Ferrell MD LAB BLOOD ORDERABLES Final Result STEPH[address] Department [place] [address] documented in this encounter Visit Diagnoses Not on filedocumented in this encounter Care Teams Executive Producer Promos Relationship Specialty Start Date End Date Sg Richards MD PCP - General 10/17/16 07/04/21 documented as of this encounter
--- OUTSIDE RECORDS SUMMARY | 2024-07-16 12:54 | XMS_ITS | Encounter Summary ---
Author Organization [facility] Healthcare Address [address] [place] [address] Care Team Providers Care Stock Supervisor Name Role Phone Sg Richards MD Primary Care Provider + Encounter Details Date Type Department Care Team (Late st Contact Info) Description 11/26/2018 4:11 PM CDT Anesthesia Event [facility] [address] [place] [address] Refugio Zuñiga MD PhD [address] [place] [address] Anesthesia Record Procedure Summary Procedure Name Responsible Anesthesiologist Anesthesia Start Time Anesthesia Stop Time LAPAROSCOPIC CHOLECYSTECTOMY (canceled) Events No events on file. Meds * Agents No agents on file. * Blood No blood administrations on file. Lines, Drains, and Airways No LDAs on file. documented in this encounter Social History Tobacco Use Types Packs/Day Years [...] on file documented as of this encounter OR Notes * Anesthesia Preprocedure Evaluation - Refugio Zuñiga MD PhD - 11/26/2018 10:22 AM CDT Anesthesia Evaluation Kayla Avila is a 43 y.o. female Procedure(s): LAPAROSCOPIC CHOLECYSTECTOMY * No Diagnosis Codes entered * HISTORY Past Medical History Information obtained from: patient and chart. Neurological + Seizures + Psychiatric history - depression Cardiovascular + Hypertension Respiratory + Sleep apnea ([place]) + Current smoker Gastrointestinal + GERD Patient Active Problem List Diagnosis ??? Obesity with body mass index 30 or greater ??? Sleep apnea ??? Epilepsy (CMS/HCC) ??? Knee pain ??? Current smoker ??? Arthritis ??? Chronic pain ??? Depression ??? Gastroesophageal reflux disease ??? Juvenile myoclonic epilepsy (CMS/HCC) ??? Seizures (CMS/HCC) Past Medical History: Diagnosis Date ??? Depression [...] Cryoablation ??? TUBAL LIGATION Bilateral tubal ligation OB History None Allergies Allergen Reactions ??? Adhesive Tape-Silicones Hives ??? Erythromycin Other (See comments) and Hallucinations Reaction: Neuro problems, , ??? Silicone Hives HOME MEDICATIONS : amoxicillin-clavulanate (AUGMENTIN) 875-125 mg per tablet ondansetron (ZOFRAN) 4 mg tablet gabapentin (NEURONTIN) 600 mg tablet HYDROcodone-acetaminophen (NORCO) 5-325 mg per tablet levETIRAcetam (KEPPRA) 1,[address] (PROTONIX) 40 mg EC tablet Current Facility-Administered Medications: ??? famotidine (PEPCID) injection 40 mg, 40 mg, intravenous, BID, 40 mg at 11/26/18 0734 ??? heparin 5,000 unit/mL injection 5,000 Units, 5,000 Units, subcutaneous, Q8H ELIZABETH ??? levETIRAcetam (KEPPRA) tablet 1,000 mg, 1,000 mg, oral, BID, 1,000 mg at 11/26/18 0732 ??? morphine injection 2 mg, 2 mg, intravenous, Q3H PRN, 2 mg at 11/26/18 0732 ??? morphine injection 2 mg, 2 mg, intravenous, Once ??? ondansetron (ZOFRAN) injection 4 mg, 4 mg, intravenous, Q6H PRN, 4 mg at 11/26/18 0011 ??? piperacillin-tazobactam (ZOSYN) 3.375 g in sodium chloride 0.9% 50 mL IVPB, 3.375 g, intravenous, Q6H ELIZABETH, Last Rate: 130 mL/hr at 11/26/18 0515, 3.375 g at 11/26/18 0515 ??? sodium chloride 0.9% infusion, 100 mL/hr, intravenous, Continuous, Last Rate: 100 mL/hr at 11/26/18 0323, 100 mL/hr at 11/26/18 0323 Social History Tobacco Use Smoking Status Never Smoker Smokeless Tobacco Never Used Tobacco Comment Smoking History Packs/day: 0.5 Packs Substance and Sexual Activity Alcohol Use Not Currently Substance and Sexual Activity Drug Use Never Family History Problem Relation Age of Onset [...] history of arthritis.; ??? Seizures Maternal Grandmother PAT Physical Exam Vitals: 11/25/18 1500 11/25/18 2359 11/26/18 0841 BP: 110/72 107/55 98/59 Pulse: 62 55 75 Resp: 18 18 18 Temp: 36.8 ??C (98.2 ??F) 36.3 ??C (97.3 ??F) 36.8 ??C (98.2 ??F) SpO2: 98% 97% 97% PT: 11/25/2018: 12.4 sec INR: 11/25/2018: 1.10 APTT: No results found for requested labs within last 720 hours. Hgb A1C: No results found for requested labs within last 720 hours. CBC RBC: 11/26/2018: 3.38 M/cumm* RDW: No results found for requested labs within last 720 hours. MCHC: 11/26/2018: 34.9 g/dL MCH: 11/26/2018: 33.7 pg* MCV: 11/26/2018: 96.7 fL* Hct: 11/26/2018: 32.7 %* Hgb: 11/26/2018: 11.4 g/dL* WBC: 11/26/2018: 5.4 K/cumm MPV: 11/26/2018: 10.9 fL Platelets: 11/26/2018: 184 K/cumm RDW CV: 11/26/2018: 13.0 % RDW Sd: 11/26/2018: 46.5 fL BMP Glucose: 11/26/2018: 97 mg/dL Calcium: 11/26/2018: 8.8 mg/dL Sodium: 11/26/2018: 141 mmol/L Potassium: 11/26/2018: 3.8 mmol/L CO2: 11/26/2018: 23 mmol/L Chloride: 11/26/2018: 108 mmol/L BUN: 11/26/2018: 5 mg/dL* Creatinine: 11/26/2018: 0.56 mg/dL* DOS Physical Exam Medical history, medications, and allergies reviewed. Attestation: I endorse the findings of the anesthesia pre-evaluation assessment dated: 11/26/2018. Airway Exam: Mallampati: see comments TM distance: normal Patient presents with poor mouth opening. 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 Turgor is normal. Current state: Patient's current state is cooperative and interactive. Anesthesia Plan ASA 3 Planned anesthesia: General Team communication plan: fiberoptic and nasal ET tube Induction: Induction: intravenous. Postoperative Plan: No plan for postoperative opioid use. No postoperative mechanical ventilation intended. Patient's planned disposition post procedure is Floor. Informed Consent: Discussed plan with BATTERY CONTAINER FINISHING HAND and attending. Anesthesia plan and risks discussed with patient. Consent and Attending signature: I and/or my designee have discussed the anesthesia plan, benefits, possible alternatives, parental presence at time of induction (if indicated), and clinically relevant risks that may include dental injury, unintentional awareness, and/or other complications. The patient and/or parent/legal guardian understand, and agree to proceed. All questions answered. documented in this encounter Plan of Treatment Not on file documented as of this encounter Visit Diagnoses Not on filedocumented in this encounter Care Teams Stock Supervisor Relationship Specialty Start Date End Date Sg Richards MD PCP - General 10/17/16 07/04/21 documented as of this encounter
--- OUTSIDE RECORDS SUMMARY | 2024-07-16 12:54 | XMS_ITS | Encounter Summary ---
Author Organization [facility] Healthcare Address [address] [place] [address] Care Team Providers Care Lifestyle Consultant Name Role Phone Sg Richards MD Primary Care Provider + Encounter Details Date Type Department Care Team (Late st Contact Info) Description 10/27/2016 8:53 PM CDT - 10/27/2016 11:59 PM CDT Hospital Encounter [facility] INTERIM Va Ferrell MD [address] [place] [address] Discharge Disposition: Discharge to home or self [...] oral route every day 0 0 02/14/2015 9 clonazePAM (KlonoPIN) 1 mg disintegrating tablet Take 1 mg by mouth 2 (two) times a day. TAKE 1 TAB PO BID PRN SEIZURE CLUSTERS OR PROLONGED SEIZURES (>5MIN) 09/24/2016 05/09/[address] (VOLTAREN) 75 mg EC tablet take 1 tablet by oral route 2 times every day 0 0 02/14/2015 9 eslicarbazepine (APTIOM) 200 mg tablet take 2 tablet by oral route every day 0 0 02/14/2015 9 gabapentin (NEURONTIN) 600 mg tablet take 1 tablet by oral route 3 times every day 0 0 02/14/2015 9 gabapentin (NEURONTIN) 600 mg tablet take 2 tablet by oral route every 2 days 0 0 06/04/2016 9 HYDROcodone-acetamin ophen (NORCO) 5-325 mg per tablet take 1 - 2 Tablet by ORAL route every 4 - 6 hours as needed for pain 0 0 02/14/2015 9 HYDROcodone-acetamin ophen (NORCO) 5-325 mg per tablet take 1 Tablet by oral route tid as needed for pain 0 0 06/04/2016 9 lacosamide (VIMPAT) 200 mg tablet take 1 tablet by oral route 2 times every day 0 0 02/14/2015 9 lamoTRIgine (LaMICtal) 100 mg tablet take 1 tablet by oral route every 2 days 0 0 06/04/2016 8 lamoTRIgine (LaMICtal) 100 mg tablet Take 350 mg by mouth 2 (two) times a day. 04/09/2016 8 lamoTRIgine (LaMICtal) 100 mg tablet Take 350 mg by mouth 2 times daily 06/23/2016 9 lamoTRIgine (LaMICtal) 150 mg tablet take 0.5 Tablet by oral route every day in the morning 0 0 06/24/2016 8 levETIRAcetam (KEPPRA) 1,000 mg tablet take 1 tablet by oral route every 12 hours 0 0 02/14/2015 8 levETIRAcetam (KEPPRA) 1,000 mg tablet take 2 tablet by oral route every 12 hours 0 0 06/04/2016 8 metroNIDAZOLE (FLAGYL) 500 mg tablet take 1 tablet by oral route every 12 hours until gone 14 0 06/16/[address] (PROTONIX) 40 mg EC tablet take 1 tablet by oral route every day 0 0 02/14/[address] (PROTONIX) 40 mg EC tablet take 1 tablet by oral route every day 0 0 06/04/2016 9 primidone (MYSOLINE) 50 mg tablet take 5 tablet by oral route 3 times every day 0 0 06/24/2016 8 primidone (MYSOLINE) 50 mg tablet take 1 1/2 tablet by oral route every day 0 0 06/04/2016 8 traZODone (DESYREL) 100 mg tablet take 1 tablet by oral route 2 times every day after meals 0 0 02/14/2015 9 traZODone (DESYREL) 100 mg tablet take 1 tablet by oral route every day after meals 0 0 06/04/2016 9 traZODone (DESYREL) 100 mg tablet 05/26/2016 3 documented as of this encounter Discharge Disposition Disposition Code Departure Means Destination Discharge to home or self care documented in this encounter Plan of Treatment Not on file documented as of this encounter Procedures Procedure Name Priority Date/Time Associated Diagnosis Comments CYTOLOGY Routine 10/27/2016 9:54 AM CDT documented in this encounter Results * Cytology (10/27/2016 9:54 AM CDT) 10/27/2016 9:54 AM CDT 10/27/2016 9:54 AM CDT [facility] - 10/29/2016 2:43 PM CDT [facility] Department of Pathology [address] [place] [id number] Final Report with Addendum ?Patient Name: AMITA SIMPSON Address: [address] [place] [address] Service: Laboratory ??[place], [place] [address] Location: Lab Taken: 10/27/2016 Gender: F Received 10/27/2016 : 1975 (Age: 41) Hospital #: [id number] Accessioned: 10/28/2016 ?? Patient Type: CH Ref Lab Reported 10/29/2016 Physician(s): MD Dr Va Stephenson MD ?? Diagnosis: A. ??IMAGED THINPREP PAP TEST plus HPV - DIETARY AID CYTOLOGIC MATERIAL: ?- SPECIMEN SATISFACTORY FOR INTERPRETATION; ENDOCERVICAL/TRANSFORMATION ZONE COMPONENT ABSENT OR INSUFFICIENT ?- NEGATIVE FOR INTRAEPITHELIAL LESION OR MALIGNANCY ?? jaf/10/29/2016 14:43 ?? Report Electronically Reviewed and Signed Out By ??ABDULLAHI Pugh(ASCP) ??10/29/2016 14:43:01 ABDULLAHI Pugh(ASCP) ??Addenda: HPV RNA Test Interpretation NEGATIVE for types 16, 18, 31, 33, 35, 39, 45, 51, 52, 56, 58, 59, 66 and 68. Test performed utilizing [employer] Aptima assay. By this signature, I attest that the above diagnosis is based upon my personal examination of the slides(and/or other material indicated in the diagnosis). ?? ABDULLAHI Squires(ASCP) ??Report Electronically Reviewed and Signed Out By ??ABDULLAHI Squires(ASCP) ??10/28/2016 15:34:51 ? Specimen(s) Received: A: IMAGED THINPREP PAP TEST plus HPV - DIETARY AID CYTOLOGIC MATERIAL Clinical History: Routine checkup Previous Pap test: 2014 Negative The Pap test is a screening test used to aid in the detection of cervical cancer and its precursors. ??It should not be the sole means by which malignant and premalignant lesions are diagnosed. ??Both false negative and false positive results may occur. ?? It also has poor sensitivity for the detection of endometrial lesions and should not be used to evaluate suspected endometrial abnormalities. ??For these reasons it is most important to obtain Pap tests at regular intervals. The performance characteristics of some immunohistochemical stains, fluorescence in-situ hybridization tests and immunophenotyping by flow cytometry cited in this report (if any) were determined by the Surgical Pathology Department at [facility] as part of an ongoing director of quality control program and in compliance with federally mandated regulations drawn from the Clinical Laboratory Improvement Act of 1988 (CLIA '88). ??Some of these tests rely on the use of analyte specific reagents and are subject to specific labeling requirements by the US Food and Drug Administration. ??Such diagnostic tests may only be performed in a facility that is certified by the Department of Health and Human Services as a high complexity laboratory under CLIA '88. The FDA has determined that such clearance or approval is not necessary. ??This test is used for clinical purposes. ??It should not be regarded as investigational or for research. ??Nevertheless, federal rules concerning the medical use of analyte specific reagents require that the following disclaimer be attached to the report: This test was developed and its performance characteristics determined by the Surgical Pathology Department [facility]. ??It has not been cleared or approved by the U. S. Food and Drug Administration. Va Ferrell MD LAB CYTOLOGY ORDERABL ES Final Result Performing Organization Address City/State/[facility] Co de Phone Number [facility] [address] [place] [address] documented in this encounter Visit Diagnoses Not on filedocumented in this encounter Care Teams Lifestyle Consultant Relationship Specialty Start Date End Date Sg Richards MD PCP - General 10/17/16 07/04/21 documented as of this encounter
--- OUTSIDE RECORDS SUMMARY | 2024-07-16 12:54 | XMS_ITS | Encounter Summary ---
Author Organization [facility] Care Team Providers Care Dough Braker Name Role Phone Sg Richards MD Primary Care Provider + Encounter Details Date Type Department Care Team (Late st Contact Info) Description 01/26/2016 7:17 AM CDT - 01/26/2016 11:59 PM T Hospital Encounter [facility] Jerry Broussard MD PhD [address] [place] [address] Encounter for general adult medical examination without abnormal findings; Convulsions (CMS/HCC) Social History Tobacco Use Types Packs/Day [...] times every day 0 0 02/14/2015 11/26/2018 HYDROcodone-aceta minophen (NORCO) 5-325 mg per tablet take 1 - 2 Tablet by ORAL route every 4 - 6 hours as needed for pain 0 0 02/14/2015 11/25/2018 lacosamide (VIMPAT) 200 mg tablet take 1 tablet by oral route 2 times every day 0 0 02/14/2015 11/25/2018 levETIRAcetam (KEPPRA) 1,000 mg tablet take 1 tablet by oral route every 12 hours 0 0 02/14/2015 12/18/[address] (PROTONIX) 40 mg EC tablet take 1 tablet by oral route every day 0 0 02/14/2015 11/26/2018 traZODone (DESYREL) 100 mg tablet take 1 tablet by oral route 2 times every day after meals 0 0 02/14/2015 11/25/2018 documented as of this encounter Plan of Treatment Not on file documented as of this encounter Procedures Procedure Name Priority Date/Time Associated Diagnosis Comments MRI BRAIN W WO CONTRAST Routine 01/26/2016 8:25 AM CDT BLOOD CREATININE, POINT OF CARE Routine 01/26/2016 7:45 AM CDT documented in this encounter Results * MRI Brain WWO Contrast (01/26/2016 8:25 AM CDT) Anatomical Region Laterality Modality Head and Neck N/A Magnetic Resonan ce 01/26/2016 8:25 AM CDT Narrative 01/26/2016 1:17 PM CDT KIARA RAMIREZ M.D. JOSHUA VILLASEÑOR M.D. FINAL REPORT The radiology attending physician has personally reviewed this study, and has reviewed and/or edited this written report and agrees with it. ACC# ??Date Time ??Exam [id number] Jan 26, 2016 08:25:00 [id number] MRI Brain wo&with contrast EXAMINATION: ?? Magnetic resonance imaging (MRI) of the brain and brainstem without and with ??contrast HISTORY: Seizures. TECHNIQUE: Multiplanar multi-weighted MRI of the brain and brainstem was performed without and with intravenous contrast using the seizure protocol. This included detailed imaging of the hippocampi and temporal lobes. Contrast information: Dotarem 16 mL COMPARISON: None available. FINDINGS: There is marked susceptibility artifact adjacent to the left mandibular ramus, likely related to underlying surgical instrumentation or metal. There is no evidence of heterotopia, vascular malformation, tumor, or infarct. The hippocampi are symmetric in size and signal. The scalp and calvarium are normal. The superior sagittal sinus demonstrates normal venous flow. The corpus callosum is normal in shape and signal intensity. The posterior fossa is unremarkable. The pituitary and sella are normal. The brainstem and craniocervical junction are unremarkable. The susceptibility weighted sequences reveal no evidence of acute or chronic hemorrhage. The ventricles are normal in size and position without evidence of hydrocephalus. There are no areas of abnormal contrast enhancement. The paranasal sinuses are normal. The visualized portions of the mastoids are unremarkable. The orbits appear normal. Normal flow voids are demonstrated in the carotid arteries and basilar artery. IMPRESSION: ?? No findings to explain the patient's seizures. Requested By: Dictated By: ?? JOSHUA VILLASEÑOR M.D. ??on Jan ??2015 11:10A This document has been electronically signed by: KIARA RAMIREZ M.D. on Jan ??2015 ??1:16P [id number] Procedure Note Provider, MD Dany - 11/16/2016 Davy DAVIS M.D. FINAL REPORT The radiology attending physician has personally reviewed this study, and has reviewed and/or edited this written report and agrees with it. ACC# Date Time Exam [id number] Jan 26, 2016 08:25:00 [id number] MRI Brain wo&with contrast EXAMINATION: Magnetic resonance imaging (MRI) of the brain and brainstem without and with contrast HISTORY: Seizures. TECHNIQUE: Multiplanar multi-weighted MRI of the brain and brainstem was performed without and with intravenous contrast using the seizure protocol. This included detailed imaging of the hippocampi and temporal lobes. Contrast information: Dotarem 16 mL COMPARISON: None available. FINDINGS: There is marked susceptibility artifact adjacent to the left mandibular ramus, likely related to underlying surgical instrumentation or metal. There is no evidence of heterotopia, vascular malformation, tumor, or infarct. The hippocampi are symmetric in size and signal. The scalp and calvarium are normal. The superior sagittal sinus demonstrates normal venous flow. The corpus callosum is normal in shape and signal intensity. The posterior fossa is unremarkable. The pituitary and sella are normal. The brainstem and craniocervical junction are unremarkable. The susceptibility weighted sequences reveal no evidence of acute or chronic hemorrhage. The ventricles are normal in size and position without evidence of hydrocephalus. There are no areas of abnormal contrast enhancement. The paranasal sinuses are normal. The visualized portions of the mastoids are unremarkable. The orbits appear normal. Normal flow voids are demonstrated in the carotid arteries and basilar artery. IMPRESSION: No findings to explain the patient's seizures. Requested By: Dictated By: JOSHUA VILLASEÑOR M.D. on Jan 26 2016 11:10A This document has been electronically signed by: KIARA RAMIREZ M.D. on Jan 26 2016 1:16P [id number] us Historical Provider MD IMG MRI PROCEDURES Final Result * Blood creatinine, point of care (01/26/2016 7:45 AM CDT) Creatinine, POC, bld 0.7 0.6 - 1.1 mg/dl HISTORICAL RESULTS Blood specimen (specimen) 01/26/2016 7:45 AM CDT Jerry Augustine MD PhD LAB BLOOD ORDERABLES Anusha medina Result HISTORICAL RESULTS documented in this encounter Visit Diagnoses Diagnosis Encounter for general adult medical examination without abnormal findings Convulsions (HCC) Other convulsions documented in this encounter Care Teams Dough Braker Relationship Specialty Start Date End Date Sg Richards MD PCP - General 02/14/15 07/15/16 documented as of this encounter
--- OUTSIDE RECORDS SUMMARY | 2024-07-16 12:54 | XMS_ITS | Encounter Summary ---
Author Organization [facility] Healthcare Address [address] [place] [address] Care Team Providers Care Model Maker Fiberglass Name Role Phone Sg Richards MD Primary Care Provider + Encounter Details Date Type Department Care Team (Latest Contact Info) Description 06/24/2018 8:24 PM CLINICAL ADMISSIONS MANAGER - 06/24/2018 11:59 PM CLINICAL ADMISSIONS MANAGER Hospital Encounter [facility] Discharge Disposition: Discharge to home or self care Social History Tobacco Use Types Packs/Day Years Used Date Smoking Tobacco: Heavy Smoker Smokeless Tobacco: Never Comments:Smoking History Pac ks/day: [...] SEIZURE CLUSTERS OR PROLONGED SEIZURES (>5MIN) 09/24/[address] (VOLTAREN) 75 mg EC [...] 0 02/14/2015 9 lamoTRIgine (LaMICtal) 100 mg tabletIndications:To donya-Clonic Epilepsy Take 3.5 tablets (350 mg total) by mouth 2 (two) times a day. 210 tablet 11 01/12/2018 9 lamoTRIgine (LaMICtal) 100 mg tablet Take 350 mg by mouth 2 times daily 06/23/2016 9 levETIRAcetam (KEPPRA) 1,000 mg tabletIndications:To donya-Clonic Epilepsy Treatment Adjunct Take 2 tablets (2,000 mg total) by mouth 2 (two) times a day. 120 tablet 11 01/12/2018 9 metroNIDAZOLE (FLAGYL) 500 mg tablet take 1 tablet by oral route every 12 hours until gone 14 0 06/16/[address] (PROTONIX) 40 mg EC tablet take 1 tablet by oral route every day 0 0 02/14/[address] (PROTONIX) 40 mg EC tablet take 1 tablet by oral route every day 0 0 06/04/2016 9 primidone (MYSOLINE) 50 mg tabletIndications:To donya-Clonic Epilepsy Take 1.5 tablets (75 mg total) by mouth nightly. 45 tablet 11 01/12/2018 9 traZODone (DESYREL) 100 mg tablet take [...] on filedocumented in this encounter Care Teams Model Maker Fiberglass Relationship Specialty Start Date End Date Sg Richards MD PCP - General 10/17/16 07/04/21 documented as of this encounter
--- OUTSIDE RECORDS SUMMARY | 2024-07-16 12:54 | XMS_ITS | Encounter Summary ---
Author Organization [facility] Healthcare Address [address] [place] [address] Care Team Providers Care Group President Name Role Phone Sg Richards MD Primary Care Provider + Encounter Details Date Type Department Care Team (Late st Contact Info) Description 11/24/2016 1:58 PM CDT - 11/24/2016 11:59 PM CDT Emergency [facility] Emergency Department [address] [place] [address] Discharge Disposition: Discharge to home or self [...] on filedocumented in this encounter Care Teams Group President Relationship Specialty Start Date End Date Sg Richards MD PCP - General 10/17/16 07/04/21 documented as of this encounter
--- OUTSIDE RECORDS SUMMARY | 2024-07-16 12:54 | XMS_ITS | Encounter Summary ---
Author Organization [facility] Address [address] [place] [address] Phone Care Team Providers Care Political Theory Professor Name Role Phone Sg Richards MD Primary Care Provider + Reason for Referral * Consultation (Routine) - Closed Specialty Diagnoses / Procedures Referred By Contac t Referred To Contact Neurology Diagnoses Other generalized epilepsy, intractable, without status epilepticus (HCC) Jerry Augustine MD PhD [address] [place] [address] Phone: tel: fax: Soto Vera MD Phone: tel: fax: Referral ID Status Reason Start Date Expiration Date V isits Requested Visits Authorized [id number] Closed Specialty Services Required 12/20/2019 06/17/2020 11 11 Question Answer Please select the performing region: [facility] (All Locations) [167] # of visits: 1 Comments Referral to gen neuro for migraine management NURSE Encounter Details Date Type Department Care Team (Late st Contact Info) Description 09/13/[address] [facility] Epilepsy [address] [place] [address] [place] [address] Kayla Gabriel RN Social History [...] Telephone Encounter - Kayla Gabriel RN - 09/19/2019 4:36 PM FLOW NURSE Called patient and relayed message from Dr Augustine. Verbalized understanding. NURSE * Telephone Encounter - Jerry Augustine MD PhD - 09/14/2019 8:32 AM FLOW NURSE Go ahead and refer to Gen Neuro for migraine management Will NURSE * Telephone Encounter - Kayla Gabriel RN - 09/13/2019 1:48 PM FLOW NURSE Pt called to report that she has been having migraines. She said she used to not have them but in the past months she has had massive migraines, lasting several days at a time, averaging 1 migrainea week. She says its always on her left side. She has talked to her PCP who told her to talk to herneurologist. She asked if these were SZs. Explained that these seem unlikely to be related to SZs and that she likely will need a referral to a different neurologist but that I would make Dr Augustine aware. Verbalized understanding. NURSE documented in this encounter Plan of Treatment Scheduled Referrals Name Type Priority Associated Diagnoses Orde r Schedule Ambulatory referral to Neurology Outpatient Referral Routine Other generalized epilepsy, intractable, without status epilepticus ([facility]) Expected: 10/03/2019 (Approximate), Expires: 09/18/2020 documented as of this encounter Visit Diagnoses Diagnosis Other generalized epilepsy, intractable, without status epilepticus (HCC)- Primary documented in this encounter Care Teams Political Theory Professor Relationship Specialty Start Date End Date Sg Richards MD PCP - General 10/17/16 07/04/21 documented as of this encounter
--- OUTSIDE RECORDS SUMMARY | 2024-07-16 12:54 | XMS_ITS | Encounter Summary ---
Author Organization [facility] Healthcare Address [address] [place] [address] Care Team Providers Care Fruit Grading Supervisor Name Role Phone Sg Almazan MD Primary Care Provider + Encounter Details Date Type Department Care Team (Late st Contact Info) Description 02/14/2015 1:41 PM CDT - 02/14/2015 11:59 PM CDT Hospital Encounter [facility] Yessenia Fan PA [address] [place] [address] DR KHOURY [address] [place] [id number] Pain in soft tissues of limb; Pain in joint, lower leg Social History Tobacco Use Types Packs/Day Years [...] Name Priority Date/Time Associated Diagnosis Comments MRI LOWER EXTREMITY JOINT WO CONTRAST Routine 02/22/2015 3:38 PM CDT US ARTERIAL DOPPLER LOWER EXTREMITY COMPLETE Routine 02/14/2015 2:30 PM CDT documented in this encounter Results * MRI Lower Extremity Joint WO Contrast (02/22/2015 3:38 PM CDT) Anatomical Region Laterality Modality N/A Magnetic Resonan ce 02/22/2015 3:38 PM CDT Narrative 02/23/2015 10:15 AM CDT MRI Knee WO R ??- RIGHT Acc#: ??[id number] DATE OF EXAM: ??Feb ??2014 CLINICAL HISTORY: Right knee pain for three weeks. RESULT: TECHNIQUE: Axial PD fat sat; sagittal PD fat sat and PD; coronal PD fat sat and PD. FINDINGS: The anterior cruciate, posterior cruciate, medial collateral and lateral collateral ligaments are intact. ??The patellar tendon is unremarkable. Grade 2 signal is noted posteriorly in the medial meniscus, consistent with mucoid degeneration. ??No meniscal tear is noted. ??The articular cartilage over the femoral condyles and patellar facets is intact. ??No abnormal marrow signal is seen. ??No joint effusion is noted. IMPRESSION: 1. NO ACUTE ABNORMALITY OF THE KNEE. 2. 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 Interpreting Physician: ??DANIEL ELIAS M.D. ??Read on: ??Feb ??2014 3:38P Transcribed by: ??padmaja ??On: Feb ??7 2015 ??8:48A Approved Electronically by: ??DANIEL ELIAS M.D. ??on: ??Feb ??2014 10:15A Attending: ??DR SG ALMAZAN Requesting: ??YESSENIA LYONS PA-C Requesting Fax: ??-- Attending Fax: ??-- Attending ID: ??[id number] Requesting ID: ??[id number] Report To 1 ID: ??[id number] Report To 1 Name: ??YESSENIA LYONS PA-C Report To 1 FAX: ??-- NextGen Order #: Procedure Note Provider, MD Dany - 11/16/2016 MRI Knee WO R - RIGHT Acc#: [id number] DATE OF EXAM: Feb 22 2015 CLINICAL HISTORY: Right knee pain for three weeks. RESULT: TECHNIQUE: Axial PD fat sat; sagittal PD fat sat and PD; coronal PD fat sat andPD. FINDINGS: The anterior cruciate, posterior cruciate, medial collateral and lateralcollateral ligaments are intact. The patellar tendon is unremarkable.Grade 2 signal is noted posteriorly in the medial meniscus, consistentwith mucoid degeneration. No meniscal tear is noted. The articularcartilage over the femoral condyles and patellar facets is intact. Noabnormal marrow signal is seen. No joint effusion is noted. IMPRESSION: 1. NO ACUTE ABNORMALITY OF THE KNEE. 2. 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 Interpreting Physician: DANIEL ELIAS M.D. Read on: Feb 22 20153:38P Transcribed by: padmaja On: Feb 23 2015 8:48A Approved Electronically by: DANIEL ELIAS M.D. on: Feb 23 201510:15A Attending: DR SG ALMAZAN Requesting: SERENASALOME SHULTZYESSENIA Requesting Fax: -- Attending Fax: -- Attending ID: [id number] Requesting ID: [id number] Report To 1 ID: [id number] Report To 1 Name: YESSENIA LYONS PA-C Report To 1 FAX: -- NextGen Order #: us Historical Provider MD MCCLENDON MRI PROCEDURES Final Result * Vl US Arterial Doppler Lower Extremity Complete (02/14/2015 2:30 PM CDT) Anatomical Region Laterality Modality Vascular N/A Ultrasound 02/14/2015 2:30 PM CDT Narrative 02/14/2015 10:33 PM CDT vm VL/US Venous Low Ext R ??Acc#: ??[id number] DATE OF EXAM: ??Feb 14 2015 CLINICAL HISTORY: Right leg pain for one month. RESULT: High resolution grayscale real time examination with color flow Doppler was performed upon deep veins of right leg. Common femoral, superficial femoral, popliteal, posterior tibial, peroneal and greater saphenous veins exhibit spontaneous geny-us-uihm flow and good compressibility without intraluminal filling defects. IMPRESSION: 1. NO RIGHT LEG DEEP VEIN THROMBOSIS SEEN. Interpreting Physician: ??DR NEO GONZALES M.D. ??Read on: ??Feb 14 2015 2:35P Transcribed by: ??vaadriane ??On: Feb 14 2015 ??6:26P Approved Electronically by: ??CHRISTIAN Bhatti, DR LARSON ??on: ??Feb 14 2015 10:33P Attending: ??YESSENIA LYONS Requesting: ??SERENA PEACOCKRosioYESSENIA Rose Requesting Fax: ??-- Attending Fax: ??-- Attending ID: ??[id number] Requesting ID: ??[id number] Report To 1 ID: ??[id number] Report To 1 Name: ??YESSENIA LYONS Report To 1 FAX: ??-- NextGen Order #: Procedure Note Provider, MD Dany - 11/16/2016 vm VL/US Venous Low Ext R Acc#: [id number] DATE OF EXAM: Feb 14 2015 CLINICAL HISTORY: Right leg pain for one month. RESULT: High resolution grayscale real time examination with color flow Dopplerwas performed upon deep veins of right leg. Common femoral, superficialfemoral, popliteal, posterior tibial, peroneal and greater saphenous veinsexhibit spontaneous vpgb-cl-dccj flow and good compressibility withoutintraluminal filling defects. IMPRESSION: 1. NO RIGHT LEG DEEP VEIN THROMBOSIS SEEN. Interpreting Physician: DR NEO GONZALES M.D. Read on: Feb 14 20152:35P Transcribed by: jackelyn On: Feb 14 2015 6:26P Approved Electronically by: CHRISTIAN Bhatti, DR LARSON on: Feb 14 201510:33P Attending: YESSENIA LYONS Requesting: YESSENIA LYONS PA-C Requesting Fax: -- Attending Fax: -- Attending ID: [id number] Requesting ID: [id number] Report To 1 ID: [id number] Report To 1 Name: YESSENIA LYONS Report To 1 FAX: -- NextGen Order #: us Historical Provider MD MCCLENDON US PROCEDURES Final R esult documented in this encounter Visit Diagnoses Diagnosis Pain in soft tissues of limb Pain in joint, lower leg documented in this encounter Care Teams Fruit Grading Supervisor Relationship Specialty Start Date End Date Sg Almazan MD PCP - General 02/14/15 07/15/16 documented as of this encounter
--- OUTSIDE RECORDS SUMMARY | 2024-07-16 12:54 | XMS_ITS | Encounter Summary ---
Author Organization [facility] Healthcare Address [address] [place] [address] Care Team Providers Care Tobacco Conditioner Name Role Phone Sg Richards MD Primary Care Provider + Encounter Details Date Type Department Care Team ([facility] st Contact Info) Description 09/26/2016 10:40 AM GUN NUMBERER Ancillary Procedure [facility] Outside Films Social History Tobacco Use Types Packs/Day Years Used Date Smoking Tobacco: Never Assessed Comments Unknown Sex and Gender Information Value Date Recorded Sex Assigned at Not on file Legal Sex Female 4:21 PM CDT Gender Identity Not on file Sexual Orientation Not on file documented as of this encounter Plan of Treatment Not on file documented as of this encounter Procedures Procedure Name Priority Date/Time Associated Diagnosis Comments BREAST IMAGING OUTSIDE REFERENCE Routine 09/26/2016 10:40 AM GUN NUMBERER documented in this encounter Results * Breast Imaging Outside Reference (09/26/2016 10:40 AM GUN NUMBERER) Narrative [facility] - 12/04/2020 7:06 AM CDT This order has been auto-finalized and does not contain a result. us Not In File Miscellaneous IMG MAMMO PROCEDURES F inal Result [facility] documented in this encounter Visit Diagnoses Not on filedocumented in this encounter Care Teams Tobacco Conditioner Relationship Specialty Start Date End Date Sg Richards MD PCP - General 07/16/16 10/16/16 documented as of this encounter
--- OUTSIDE RECORDS SUMMARY | 2024-07-16 12:54 | XMS_ITS | Encounter Summary ---
Author Organization [facility] Healthcare Address [address] [place] [address] Care Team Providers Care Watch Train Assembler Name Role Phone Sg Richards MD Primary Care Provider + Reason for Visit * Reason Comments Chest Pain Shortness of Breath Encounter Details Date Type Department Care Team (Late st Contact Info) Description 06/24/2018 9:03 PM CONVEYOR MECHANIC - 06/25/2018 12:01 AM CONVEYOR MECHANIC Emergency [facility] Emergency Department [address] [place] [address] Jazmyn Gordon MD [address] [place] [address] Shortness of breath (Primary Dx); Adverse effect of drug, initial encounter Discharge Disposition: Discharge to home or self [...] Sign Reading Time Taken Comments Blood Pressure 110/66 06/24/2018 11:30 PM CONVEYOR MECHANIC Pulse 67 06/24/2018 11:30 PM CONVEYOR MECHANIC Temperature 36.8 ??C (98.3 ??F) 06/24/2018 9:14 PM CS T Respiratory Rate 17 06/24/2018 11:30 PM CONVEYOR MECHANIC Oxygen Saturation 92% 06/24/2018 11:30 PM CONVEYOR MECHANIC Inhaled Oxygen Concentration - - Weight 88 kg (194 lb) 06/24/2018 9:14 PM CONVEYOR MECHANIC Height 162.6 cm (5' 4 ) 06/24/2018 9:14 PM CONVEYOR MECHANIC Body Mass Index 33.3 06/24/2018 9:14 PM CONVEYOR MECHANIC documented in this encounter Discharge Instructions * Discharge Instructions* Jazmyn Gordon MD - 06/24/2018 11:47 PM CONVEYOR MECHANIC STOP THE IV ANTIBIOTIC FOR NOW YOU HAVE HAD AN ALLERGIC REACTION. CONTINUE THE EAR DROPS CALL THE ORAL SURGEON IN THE MORNING FOR FURTHER ANTIBIOTIC INSTRUCTIONS. HE WILL DECIDE WHICH IV ANTIBIOTICS TO SWITCH YOU TO. WE PAGED HIM HERE BUT HE DID NOT RETURN OUR CALLS COME BACK TO THE ER IF YOU HAVE RETURN OF SHORTNESS OF BREATH OR THROAT TIGHTNESS. EYOR MECHANIC EYOR MECHANIC documented in this encounter Medications at Time [...] documented in this encounter ED Notes * Kristi Rico RN - 06/24/2018 10:09 PM CST Squeezing chest pain SECURITY SPECIALIST, none now Kristi Rico RN 06/24/182208 EYOR MECHANIC * Kristi Rico RN - 06/24/2018 10:07 PM CST Reports SOB SECURITY SPECIALIST, none now. Kristi Rico RN 06/24/182206 EYOR MECHANIC * Kristi Rico RN - 06/24/2018 10:06 PM CST Pt had a jaw sx yesterday and has her jaw wired shut. Kristi Rico RN 06/24/182206 EYOR MECHANIC * Kristi Rico RN - 06/24/2018 9:10 PM CST Pt had jaw sx yesterday and has a PICC line and received her first dose of IV abx tonight at 1900. The pt states that the medicine was cold out of refrigerator and they ran in through pretty fast . Pt states that during the infusion she began to have squeezing chest pain into her throat and she began to have SOB. Pt denies all symptoms at this time. EYOR MECHANIC * Jazmyn Gordon MD - 06/24/2018 9:09 PM CST HPI Chief Complaint Patient presents with ??? Chest Pain ??? Shortness of Breath 9:09 PM 06/24/2018 - 43 y.o. 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 Patient was released from [facility] yesterday and was assigned a home nurse to administer antibiotics, per relative. Relative also states that after receiving her antibiotics at 7 PM tonight, patient began to ex perience shortness of breath, chest pain, and throat discomfort/swelling. No further complaints at this time. Patient History Patient Active Problem List Diagnosis Date Noted ??? Seizures ([facility]) 01/09/2018 ??? Arthritis 09/07/2017 ??? Knee pain 09/22/2016 Class: Chronic ??? Current smoker 09/22/2016 Class: Chronic ??? Obesity with body mass index 30 or greater 06/04/2016 Class: Chronic ??? Sleep apnea 06/04/2016 Class: Chronic ??? Epilepsy ([facility]) 06/04/2016 Class: Chronic ??? Chronic pain 01/09/2016 ??? Gastroesophageal reflux disease 01/09/2016 ??? 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 Depression 09/24/2015 Past Medical History: [...] - ??? Hypertension Hypertension ??? Seizure disorder ([facility]) Seizure disorder Past Surgical History: Procedure Laterality [...] arthritis.; ??? Seizures Maternal Grandmother Social History Substance Use Topics ??? Smoking status: Heavy Tobacco Smoker ??? Smokeless tobacco: Never Used Comment: Smoking History Packs/day: 0.5 Packs ??? Alcohol use Yes Social History Social History Narrative ??? No narrative on file Review of Systems Review of Systems HENT: Swelling and discomfort to throat. Respiratory: Positive for shortness of breath. Cardiovascular: Positive for chest pain. All other systems reviewed and are negative. Physical Exam ED Triage Vitals [06/24/182113] Temp Pulse Resp BP SpO2 36.8 ??C (98.3 ??F) 60 18 92/65 100 % Temp src Heart Rate Source Patient Position BP Location FiO2 (%) Oral -- -- -- -- Physical Exam HENT: No facial or oral swelling. However, teeth are wired shut and I am unable to see inside of her mouth. Eyes: EOM are normal. Neck: Normal range of motion. No palpable lymphadenopathy. Cardiovascular: Normal rate, regular rhythm, normal heart sounds and intact distal pulses. Exam reveals no gallop and no friction rub. No murmur heard. Pulmonary/Chest: Good aeration of the lungs, lungs clear to auscultation. Abdominal: Soft. She exhibits no distension. There is no tenderness. Musculoskeletal: Normal range of motion. She exhibits no edema, tenderness or deformity. Good femoral pulses bilaterally. Neurological: A&O x3, follows commands without difficulty; moves all extremities without difficulty. Skin: Skin is dry. No rash noted. Nursing note and vitals reviewed. MDM Drug interaction/allergy,soft tissue hematoma, distributive shock not likely MDM Number of Diagnoses or Management Options Adverse effect of drug, initial encounter: Shortness of breath: Diagnosis management comments: 10:33 PM 06/24/2018 Re-evaluated patient, she appears to be in no acute distress, she is resting comfortably with a stable systolic blood pressure of 107. 10:37 PM 06/24/2018 Checked Care Everywhere in Epic and only antibiotic is ciprodex, no IV antibiotics noted. 11:47 PM 06/24/2018 Checked with secretary to board of commissioners about call from oral surgeon. One hour was spent waiting for oral surgeon toreturn call, will discharge patient with instruction to follow up with oral surgeon in the morning. Patient Vitals for the past 24 hrs: BP Temp Temp src Pulse Resp SpO2 Height Weight 06/24/18 2330 110/66 - - 67 17 92 % - - 06/24/18 2245 110/67 - - 66 14 96 % - - 06/24/18 2230 - - - 65 17 96 % - - 06/24/18 2200 107/71 - - 60 14 98 % - - 06/24/182123 - - - - - 100 % - - 06/24/18 2114 92/65 36.8 ??C (98.3 ??F) Oral 60 18 100 % 162.6 cm (5' 4 ) 88 kg (194 lb) Labs Reviewed - No data to display XR Neck Soft Tissue Final Result 1. POSTSURGICAL CHANGE LEFT MANDIBLE. 2. MINOR DEGENERATIVE CHANGES CERVICAL SPINE. Electronically signed by: Fab Quiros M.D BP 110/66 Pulse 67 Temp 36.8 ??C (98.3 ??F) (Oral) Resp 17 Ht 162.6 cm (5' 4 ) Wt 88 kg (194 lb) SpO2 92% BMI 33.30 kg/m?? Procedures ED Course as of Jun 25 549 Time: 06/24 2237 Comment: PT IS AFEBRILE SINCE PROCEDURE AND REMAINS SO IN ED. NO POSTICITAL STATE AT HOME OR IN ED.PT GIVEN TREATMENT FOR DRUG ALLERGY REACTION. AND IS DOING WELL. REPORTS FEELING BETTER. WILL DC HOME TO HOLD IV ABX AND TO CALL HER ORAL SURGEON FOR ABX REPLACEMENT BUT TO CONTINUE OTIC EAR DROPS. PT LOOKS WELL. By: Jazmyn Gordon MD Shortness of breath Adverse effect of drug, initial encounter Disposition: Discharge Condition: Stable This note is prepared by Elvira Fitzgerald, acting for and in the presence of Jazmyn Gordon MD. I electronically signed this note at 9:45 PM 06/24/2018. I, Jazmyn Gordon MD have personally performed the services described in the documentation , reviewed the documentation, as recorded by the scribe in my presence, and it accurately and completely records my words and actions. Jazmyn Gordon MD 06/25/18 0550 EYOR MECHANIC * [place] RN - 06/24/2018 9:05 PM CST Bed: ED06 Expected date: 06/24/18 Expected time: 8:57 PM Means of arrival: Ambulance Comments: [id number] [place] RN 06/24/18 2105 EYOR MECHANIC documented in this encounter Plan of Treatment Not on file documented as of this encounter Procedures Procedure Name Priority Date/Time Associated Diagnosis Comments XR NECK SOFT TISSUE ED 06/24/2018 9 :51 PM CONVEYOR MECHANIC documented in this encounter Results * XR Neck Soft Tissue (06/24/2018 9:51 PM CONVEYOR MECHANIC) Anatomical Region Laterality Modality Head and Neck N/A Computed Radiogr aphy 06/24/2018 10:4 6 PM CONVEYOR MECHANIC Impressions 06/24/2018 10:50 PM CONVEYOR MECHANIC 1. ??POSTSURGICAL CHANGE LEFT MANDIBLE. 2. ??MINOR DEGENERATIVE CHANGES CERVICAL SPINE. Electronically signed by: Sami Murphy 06/24/2018 10:50 PM CONVEYOR MECHANIC XR NECK SOFT TISSUE HISTORY: NECK TIGHTNESS. ??Swelling. ??Recent jaw surgery. TECHNIQUE: AP lateral views. COMPARISON: None available. FINDINGS: Epiglottis and aryepiglottic folds are maintained. Prevertebral soft tissue space width is normal. ??Airway appears patent. ??Postsurgical change of the mandible on the left. ??Wires from the mandible to the maxilla, closed position. ??Minimal spurring cervical spine, with evidence of degenerative disc disease at C5-C6. Procedure Note Fab Quiros MD - 06/24/2018 XR NECK SOFT TISSUE HISTORY: NECK TIGHTNESS. Swelling. Recent jaw surgery. TECHNIQUE: AP lateral views. COMPARISON: None available. FINDINGS: Epiglottis and aryepiglottic folds are maintained. Prevertebral soft tissue space width is normal. Airway appears patent. Postsurgical change of the mandible on the left. Wires from the mandible to the maxilla, closed position. Minimal spurring cervical spine, with evidence of degenerative disc disease at C5-C6. IMPRESSION: 1. POSTSURGICAL CHANGE LEFT MANDIBLE. 2. MINOR DEGENERATIVE CHANGES CERVICAL SPINE. Electronically signed by: Fab Quiros M.D Jazmyn Gordon MD IMG XR PROCEDURES Final R esult documented in this encounter Visit Diagnoses Diagnosis Shortness of breath- Primary Adverse effect of drug, initial encounter documented in this encounter Administered Medications Inactive Administered Medications - up to 3 most recent administrations Medication Order MAR Action Action Date Dose Rate Site albuterol (PROVENTIL,VENTOLIN) 2.5 mg /3 mL (0.083 %) nebulizer solution 2.5 mg 2.5 mg, nebulization, Once (vp respiratory), On [facility] 06/24/18 at 2119, For 1 dose Given 06/24/2018 9:24 PM CONVEYOR MECHANIC 2.5 mg diphenhydrAMINE (BENADRYL) injection 25 mg 25 mg, intravenous, Administer over 2 Minutes, Once, On [facility] 06/24/18 at 2119, For 1 dose Given 06/24/2018 9:54 PM CONVEYOR MECHANIC 25 mg famotidine (PEPCID) injection 20 mg 20 mg, intravenous, Administer over 2 Minutes, Once, On [facility] 06/24/18 at 2119, For 1 dose Given 06/24/2018 9:55 PM CONVEYOR MECHANIC 20 mg methylPREDNISolone sodium succinate (SOLU-medrol) preservative free injection 125 mg 125 mg, intravenous, Administer over 3 Minutes, Once, On [facility] 06/24/18 at 0, For 1 dose, Administer 125 mg or less over 3 minutes Given 06/24/2018 9:52 PM CONVEYOR MECHANIC 125 mg documented in this encounter Active and Recently Administered Medications Times are shown in CONVEYOR MECHANIC. Scheduled Medication Order 06/23/2018 06/24/2018 06/25/2018 albuterol (PROVENTIL,VENTOLIN) 2.5 mg /3 mL (0.083 %) nebulizer solution 2.5 mg (COMPLETED) 2.5 mg, nebulization, Once (vp respiratory), On [facility] 06/24/18 at 0, For 1 dose 2123 (Given - Provider: Jana Gibbs, SWIMMING POOL PLASTERER HELPER) diphenhydrAMINE (BENADRYL) injection 25 mg (COMPLETED) 25 mg, intravenous, Administer over 2 Minutes, Once, On [facility] 06/24/18 at 0, For 1 dose 2153 (Given - Provider: Kristi Rico RN) famotidine (PEPCID) injection 20 mg (COMPLETED) 20 mg, intravenous, Administer over 2 Minutes, Once, On [facility] 06/24/18 at 0, For 1 dose 2154 (Given - Provider: Kristi Rico RN) methylPREDNISolone sodium succinate (SOLU-medrol) preservative free injection 125 mg (COMPLETED) 125 mg, intravenous, Administer over 3 Minutes, Once, On [facility] 06/24/18 at 2120, For 1 dose, Administer 125 mg or less over 3 minutes 2151 (Given - Provider: Kristi Rico RN) documented in this encounter Care Teams Watch Train Assembler Relationship Specialty Start Date End Date Sg Richards MD PCP - General 10/17/16 07/04/21 documented as of this encounter
--- OUTSIDE RECORDS SUMMARY | 2024-07-16 12:54 | XMS_ITS | Encounter Summary ---
Author Organization [facility] Address [address] [place] [address] Phone Care Team Providers Care Personal Assistant Name Role Phone Sg Richards MD Primary Care Provider + Reason for Visit * Consultation (Routine) - Canceled Specialty Diagnoses / Procedures Referred By Contac t Referred To Contact Neurology Diagnoses Other generalized epilepsy, intractable, without status epilepticus (HCC) Sg Richards MD Phone: tel: fax: [facility] (All Locations) Referral ID Status Reason Start Date Expiration Date Visits Requested Visits Authorized [id number] Canceled Specialty Services Required 12/20/2019 07/19/2020 12 12 Encounter Details Date Type Department Care Team (Late st Contact Info) Description 01/03/2020 4:30 PM CDT Telemedicine [facility] Epilepsy [address]th [place] [address] [place] [address] Jerry Augustine MD PhD [address] [place] [address] 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); Seizures (CMS/HCC) Social History Tobacco Use Types Packs/Day [...] Date primidone (MYSOLINE) 50 mg tablet Take 1.5 tablets (75 mg total) by mouth 2 (two) times a day 90 tablet 01/03/2020 0 levETIRAcetam (KEPPRA) 1,000 mg tablet Take 2 tablets (2,000 mg total) by mouth 2 (two) times a day 120 tablet 01/03/2020 0 lamoTRIgine (LaMICtal) 100 mg tablet Take 3.5 tablets (350 mg total) by mouth 2 (two) times a day 210 tablet 01/03/2020 0 documented in this encounter Progress Notes * Jerry Augustine MD PhD - 01/03/2020 4:30 PM CDT Name: Kayla Avila Date of : 1975 PCP: Sg Richards MD Date: 01/03/2020 Provider: Jerry Augustine MD PhD Chief Complaint: seizures HPI This was a telemedicine visit with Kayla Avila and her which took place via Telephone. During the visit, I was located in my clinic office in the [facility], in the [place], [place] and the patient was located at home in [place]. The session started at 4:34 PM and endedat 4:56 PM. In addition to the time spent during the session with the patient, I spent 1 minutes ordering medications, tests, or procedures and 11 minutes documenting clinical information in the electronic or other health record on the day of the visit. Total time spend on encounter on the day of the visit: 34 minutes. The patient has been informed that the visit may not be secure and acknowledged the information. It was explained to the patient they have the option of participating in a telephone or video visitduring the COVID-19 public health emergency. After being given an opportunity to ask questions about and discuss this type of visit, the patient verbally consented to proceeding with the telephone / video visit. The patient understands that this service replaces an office visit and they may be billed and/or responsible for any applicable copayments. Portions of this note were copied forward from a prior encounter and updated to reflect the currentclinical condition. The EMR was personally reviewed and summarized as part of this note. She was accompanied by her . The patient is a 44 YO RHF with a history of head [...] feeling tremulous, does not feel good, visionis crackley, like I cannot see, cannot get off the couch much of the day, sleeps an extra 3-4 hours during waking hours (none in 3 months; 4-5/day), 2) feels brain go crazy, brain is squiching or twisting/dizziness, facial muscle twitching lasting 4-5 minutes (once per week also with a feeling of being hit in the head on her left side; 6-8/day; previously 3-4/day), 3) dizziness, holding onto solid objects to try to maintain balance, fall, no motor movements, loss of consciousness, loss of memory, lasting 30 seconds, followed by significant somnolence, will sleep up to 5 hours after a fall attack (every other week especially with migraines; daily to twice daily/every time she goes out in the sun), and 4) witnessed generalized tonic-clonic activity (none reported since last visit;4 times between Spring and Fall 2016). She [...] relationship with her with both involved in [employer] study and being prayer warriors. 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 Her mouth was wired shut for months. Ertapenem/infection likely triggered a seizure. No AED changes were made. She related that a friend she knew had VNS implanted and later had to be in a long-term, so she is leery of VNS. Last visit, she reported a period of daily seizures in the setting of increased GBT for antibiotic-related neuropathy. 2 weeks after a dose reduction back to 1200 mg bid, the seizures stopped, with the last one on 03/03/19. We discussed that patients who are doing well and seem to be on the correct treatment path do not need Video/EEG, so there is no reason to pursue it at this time, but if she continues to have seizures/spells despite AEDs then Video/EEG may be ordered in the future. Since last visit, 08/2019 she reported severe left sided migraines and was referred to General Neurology. Today she reports that new events returned 11/22/2019 and are sudden onset dizziness or sudden onset falls without recalled feelings. She fell and sprained her ankle and broke her toe on 12/13/2019. Sheis still having her other event types as above weekly to every other week, sometimes with multiple events on days she has them, but these are different, more like when she first had seizures without recall of how it happened. These new events are about every other week. She denies side effects fromher AEDs. We discussed that LTG can worsen migraines, and LEV is already dosed at a high level. Shewas willing to increase PRM initially from 75 mg at bedtime to 75 mg bid and contact me in ~2 weekswith an update. We discussed that PRM as a seizure medication can be dosed as high as 2000 mg dailyin divided doses. She has been on Valium 5 mg [...] LTG, TPM, ZNS, or Onfi at the [facility]. She is currently on LEV 2000 [...] personally reviewed). -48 hour Ambulatory EEG at [facility] (Dr. Ray) revealed 4 Hz generalized spike [...] this visit. ACTIVE PROBLEMS Problem List Nervous Juvenile myoclonic epilepsy (CMS/HCC) - Primary Relevant Medications lamoTRIgine (LaMICtal) 100 mg tablet levETIRAcetam (KEPPRA) 1,000 mg tablet primidone (MYSOLINE) 50 mg tablet Seizures (CMS/HCC) MAYCO Garza has a past medical history of Depression, OTHER MEDICAL, OTHER MEDICAL, OTHER MEDICAL, OTHER MEDICAL, OTHER MEDICAL, OTHER MEDICAL, OTHER MEDICAL, Hypertension, and Seizure disorder (CMS/HCC). PSH She has a past surgical history that includes Other surgical history; Other surgical history; Othersurgical history; Other surgical history; Tubal ligation; and Other surgical history. SOCIAL HISTORY The patient is and lives with her in [place], [place]. 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 [...] some college classes to be a public records officer, realty loan specialist, etc. She does not drive. FAMILY HISTORY Her family history includes Arthritis in an other family member; Breast cancer in her paternal grandmother; Cancer in an other family member; Diabetes in some other family members; Heart attack in her maternal grandfather; Heart disease in an other family member; Hypertension in an other family member; Leukemia in her paternal grandfather; Lung disease in an other family member; Other in some othe r family members; Seizures in her maternal grandmother; Stroke in an other family member. There was family history of epilepsy. ROS A review of systems was obtained. All of the pertinent positives and negatives were mentioned in the History of Presenting Illness and here: headaches and jaw pain. All other systems were negative. VITAL SIGNS There were no vitals taken for this visit. Physical Exam Not done due to clinic visit being converted to telemedicine visit due to COVID- 19 risk. Assessment The patient is a 44 YO RHF with a history of tremor, [...] of GBT dosed above 1200 mg bid. She began having migrainous headaches since last visit, and is scheduled to see Dr. Vera on 03/09/2020. Today she reports that new events returned 11/22/2019 and are sudden onset dizziness or sudden onset falls without recalled feelings. She fell and sprained her ankle and broke her toe on 12/13/2019. These new events are about every other week. She is still having some of her other event types weekly to every other week, sometimes with multiple events on days she has them. Her new events are different, more like when she first had seizures without recall of how the event happened. She denies side effects from her AEDs. We discussed that LTG can worsen migraines, and LEV is already dosed at a highlevel. PRM was used for tremor, but is also an AED. She was willing to increase PRM initially from 75 mg at bedtime to 75 mg bid and contact me in ~2 weeks with an update. We discussed that PRM as a seizure medication can be dosed as high as 2000 mg daily in divided doses. We have discussed pursuing Video/EEG testing as clinically indicated. She has had a tubal ligation. She does not drive. Seizure precautions including no driving, heights, swimming or bathing alone, operating heavy machinery or other activities during which a seizure would endanger her or others have been discussed. Greater than 50% of the time of the visit was spent in counseling and/or coordination of care. Plan 1. Increase PRM from 75 mg at bedtime for tremor to 75 mg bid for seizures/events as well. Call in ~2 weeks with an update and to discuss possible further titration. 2. Continue LTG 350 mg bid and LEV 2000 mg bid. 3. Continue GBT 1200 mg bid for pain prescribed by another physician. I do not recommend increasingsignificantly above this dose as doing so has worsened her seizures in the past. 4. She does not drive. Seizure precautions. 5. F/U ~6-9 months. Call as needed. 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)- Primary Seizures (HCC) Other convulsions documented in this encounter Discontinued Medications Medication Sig Discontinue Reason Start Date End Da te lamoTRIgine (LaMICtal) 100 mg tablet Take 3.5 tablets (350 mg total) by mouth 2 (two) times a day Reorder 04/01/2019 01/03/2020 levETIRAcetam (KEPPRA) 1,000 mg tablet Take 2 tablets (2,000 mg total) by mouth 2 (two) times a day Reorder 04/01/2019 01/03/2020 primidone (MYSOLINE) 50 mg tablet Take 1.5 tablets (75 mg total) by mouth nightly Reorder 04/01/2019 01/03/2020 documented as of this encounter Care Teams Personal Assistant Relationship Specialty Start Date End Date Sg Richards MD PCP - General 10/17/16 07/04/21 documented as of this encounter
--- OUTSIDE RECORDS SUMMARY | 2024-07-16 12:54 | XMS_ITS | Encounter Summary ---
Author Organization [facility] Healthcare Address [address] [place] [address] Care Team Providers Care Pilates Instructor Name Role Phone Sg Richards MD Primary Care Provider + Encounter Details Date Type Department Care Team (Late st Contact Info) Description 02/11/2017 9:17 PM CDT - 02/11/2017 11:59 PM CDT Emergency [facility] Emergency Department [address] [place] [address] Discharge Disposition: Discharge to home or self [...] on filedocumented in this encounter Care Teams Pilates Instructor Relationship Specialty Start Date End Date Sg Richards MD PCP - General 10/17/16 07/04/21 documented as of this encounter
--- OUTSIDE RECORDS SUMMARY | 2024-07-16 12:54 | XMS_ITS | Encounter Summary ---
Author Organization [facility] Healthcare Address [address] [place] [address] Care Team Providers Care Staffing And Scheduling Coordinator Name Role Phone Sg Richards MD Primary Care Provider + Encounter Details Date Type Department Care Team ([facility] st Contact Info) Description 06/04/2016 7:33 PM BAG [employer] WORKER - 06/04/2016 11:59 PM [facility] Hospital Encounter [facility] CLINCONVa Childress MD [address] [place] [address] Social History Tobacco Use Types Packs/Day Years [...] Procedure Name Priority Date/Time Associated Diagnosis Comments GENITAL FLUID BACTERIAL VAGINOSIS PANEL Routine 06/04/2016 2:15 PM BAG SHOP WORKER documented in this encounter Results * (ABNORMAL) Genital fluid bacterial vaginosis panel (06/04/2016 2:15 PM BAG SHOP WORKER) Yeast, fld Not Detected NotDetected CDR HISTORICAL RESULTS G. vaginalis, fld Detected(A) NotDetected CDR HISTORICAL RESULTS Trichomonads, fld Not Detected NotDetected CDR HISTORICAL RESULTS Genital 06/04/2016 2:15 PM BAG SHOP WORKER Narrative CDR HISTORICAL RESULTS - 06/06/2016 4:53 AM BAG SHOP WORKER Test performed at [facility], ??[address] [place] [address],[place], [place], [place], [address] us Va Ferrell MD LAB BLOOD ORDERABLES Final Result CDR HISTORICAL RESULTS documented in this encounter Visit Diagnoses Not on filedocumented in this encounter Care Teams Staffing And Scheduling Coordinator Relationship Specialty Start Date End Date Sg Richards MD PCP - General 02/14/15 07/15/16 documented as of this encounter
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
--- OUTSIDE RECORDS SUMMARY | 2024-07-16 12:54 | XMS_ITS | Encounter Summary ---
Author Organization [facility] Healthcare Address [address] [place] [address] Care Team Providers Care Coal Unloader Name Role Phone Sg Richards MD Primary Care Provider + Reason for Visit * Reason Comments Vascular Access Problem Encounter Details Date Type Department Care Team ([facility] st Contact Info) Description 07/01/2018 6:26 PM PEARL TECHNICIAN - 07/01/2018 8:04 PM PEARL TECHNICIAN Emergency [facility] Emergency Department [address] [place] [address] Jazmyn Gordon MD [facility] [place] [address] Occluded PICC line, initial encounter ([facility]) (Primary Dx) Discharge Disposition: Discharge to home [...] Sign Reading Time Taken Comments Blood Pressure 107/64 07/01/2018 6:49 PM PEARL TECHNICIAN Pulse 67 07/01/2018 6:49 PM PEARL TECHNICIAN Temperature 37.3 ??C (99.2 ??F) 07/01/2018 6:49 PM CS T Respiratory Rate 18 07/01/2018 6:49 PM PEARL TECHNICIAN Oxygen Saturation 98% 07/01/2018 6:49 PM PEARL TECHNICIAN Inhaled Oxygen Concentration - - Weight 83 kg (183 lb) 07/01/2018 6:49 PM PEARL TECHNICIAN Height 162.6 cm (5' 4 ) 07/01/2018 6:49 PM PEARL TECHNICIAN Body Mass Index 31.41 07/01/2018 6:49 PM PEARL TECHNICIAN documented in this encounter Discharge Instructions * Discharge Instructions* Jazmyn Gordon MD - 07/01/2018 7:49 PM PEARL TECHNICIAN YOUR LINE WORKED OKAY TODAY AFTER BEING FLUSHED. CONTINUE TO USE THE PICC LINE PREVIOUSLY INSTRUCTED. L TECHNICIAN documented in this encounter Medications at Time of Discharge buPROPion XL (WELLBUTRIN XL) 150 mg 24 hr tablet take 1 tablet by oral route every day 0 0 02/14/2015 9 cefTRIAXone (ROCEPHIN) 2 gram injection 9 clonazePAM (KlonoPIN) 1 mg disintegrating tablet [...] hours until gone 14 0 06/16/2016 9 oxyCODONE-acetaminop hen (PERCOCET) 10-325 mg per tabletIndications:Pa in Take 1 tablet by mouth every 4 (four) hours as needed. [address] (PROTONIX) 40 mg EC [...] documented in this encounter ED Notes * Jazmyn Gordon MD - 07/01/2018 7:03 PM CST HPI Chief Complaint Patient presents with ??? Vascular Access Problem 6:54 PM: Patient is a 43 year old female smoker with a history of hypertension, epilepsy, AK, arthritis, and depression, who presents to the ED complaining of a redness and pain near site of PICC line in left arm. She had the dressing of her PICC line changed this morning at 9 AM. While the dressing was being changed the patient felt like the nurse was pulling on it . Her PICC line has not been used since the dressing was placed, but it typically works well. She denies any numbness or tinglingin the left arm. There are no other complaints at this time. Patient History Patient Active Problem List Diagnosis Date Noted ??? Seizures ([facility]) 01/09/2018 ??? Arthritis 09/07/2017 ??? Knee pain 09/22/2016 Class: Chronic ??? Current smoker 09/22/2016 Class: Chronic ??? Obesity with body mass index 30 or greater 06/04/2016 Class: Chronic ??? Sleep apnea 06/04/2016 Class: Chronic ??? Epilepsy ([facility]) 06/04/2016 Class: Chronic ??? Chronic pain 01/09/2016 ??? Gastroesophageal reflux disease 01/09/2016 ??? 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 Depression 09/24/2015 Past Medical History: [...] KAZ 09/23/2016 - ??? HX OTHER MEDICAL 2011 Left ear cyst.; Comments: JJC 09/23/2016 - [...] Systems Review of Systems Constitutional: Negative for chills, fatigue and fever. Respiratory: Negative for cough and shortness of breath. Cardiovascular: Negative for chest pain. Gastrointestinal: Negative for abdominal pain, constipation, diarrhea, nausea and vomiting. Musculoskeletal: Negative for arthralgias, back pain, myalgias and neck pain. Skin: Negative for rash and wound. Redness and pain near site of PICC on left arm. Neurological: Negative for dizziness, syncope, weakness, light-headedness, numbness and headaches. All other systems reviewed and are negative. Physical Exam ED Triage Vitals [07/01/18 1849] Temp Pulse Resp BP SpO2 37.3 ??C (99.2 ??F) 67 18 107/64 98 % Temp src Heart Rate Source Patient Position BP Location FiO2 (%) Temporal -- -- -- -- Physical Exam Constitutional: She is oriented to person, place, and time. She appears well- developed and well-nourished. No distress. HENT: Head: Normocephalic and atraumatic. Mouth/Throat: Oropharynx is clear and moist. Eyes: Conjunctivae and EOM are normal. Neck: Normal range of motion. Neck supple. Cardiovascular: Normal rate, regular rhythm, normal heart sounds and intact distal pulses. Exam reveals no gallop and no friction rub. No murmur heard. Pulmonary/Chest: Effort normal and breath sounds normal. No respiratory distress. She has no wheezes. She has no rales. Abdominal: Soft. She exhibits no distension. There is no tenderness. Musculoskeletal: Normal range of motion. She exhibits no edema, tenderness or deformity. Moving all extremities well. Good radial pulse on the left. Neurological: She is alert and oriented to person, place, and time. Skin: Skin is warm and dry. Capillary refill takes less than 2 seconds. No rash noted. No erythema.No pallor. Right at insertion side of PICC line on left upper arm there is a mild pink area with minimal swelling. No overlying erythema or induration. Psychiatric: She has a normal mood and affect. Her behavior is normal. Nursing note and vitals reviewed. BP 107/64 Pulse 67 Temp 37.3 ??C (99.2 ??F) (Temporal) Resp 18 Ht 162.6 cm (5' 4 ) Wt 83 kg (183 lb) LMP (LMP Unknown) SpO2 98% BMI 31.41 kg/m?? Labs Reviewed - No data to display No orders to display MDM MDM Number of Diagnoses or Management Options Diagnosis management comments: Differential Diagnosis:Clotted PICC line, Displaced PICC line, Intramuscular hematoma. 7:06 PM: Initially the PICC line did not draw back blood. After line was flushed it was able to draw blood. Going to attempt to administer home Rocephin of two grams to make sure that the line holds and that the patient is able to tolerate it. 7:47 PM: Patient tolerated Rocephin through her PICC line. Discussed plan for discharge. Patient understands and agrees to the plan. CONDITION: STABLE DISPOSITION: DISCHARGE Occluded PICC line, initial encounter ([facility]) 8:02 PM: Jael Hoover, scribing for and in the presence of Dr. Jazmyn Gordon MD. I electronically signed this note at 8:02 PM on 07/01/2018. I, Dr. Jazmyn Gordon MD, have personally performed the services described in the documentation , reviewed the documentation, as recorded by the scribe in my presence, and it accurately and completelyrecords my words and actions. Jazmyn Gordon MD 07/01/182001 L TECHNICIAN * Ousmane cMghee RN - 07/01/2018 6:47 PM CST Ambulate to room c/o had dressing change on picc line to lt arm and started having pain and rednesstoday. L TECHNICIAN documented in this encounter Plan of Treatment Not on file documented as of this encounter Visit Diagnoses Diagnosis Occluded PICC line, initial encounter ([facility])- Primary documented in this encounter Administered Medications Inactive Administered Medications - up to 3 most recent administrations Medication Order MAR Action Action Date Dose Rate Site heparin 100 unit/mL injection 500 Units 500 Units (5 mL), IV flush, Once, On Dhara 07/01/18 at 1949, For 1 dose Given 07/01/2018 7:57 PM PEARL TECHNICIAN 500 Units documented in this encounter Historical Medications * This list may reflect changes made after this encounter. cefTRIAXone (ROCEPHIN) 2 gram injection 11/25/2018 oxyCODONE-acetami nophen (PERCOCET) 10-325 mg per tabletIndications :Pain Take 1 tablet by mouth every 4 (four) hours as needed. 11/25/2018 added in this encounter Active and Recently Administered Medications Times are shown in PEARL TECHNICIAN. Scheduled Medication Order 06/29/2018 06/30/2018 07/01/2018 heparin 100 unit/mL injection 500 Units (COMPLETED) 500 Units (5 mL), IV flush, Once, On Dhara 07/01/18 at 1949, For 1 dose 1956 (Given - Provid er: Ousmane Mcghee RN) documented in this encounter Care Teams Coal Unloader Relationship Specialty Start Date End Date Sg Richards MD PCP - General 10/17/16 07/04/21 documented as of this encounter
--- OUTSIDE RECORDS SUMMARY | 2024-07-16 12:54 | XMS_ITS | Encounter Summary ---
Author Organization [facility] Address [address] [place] [address] Phone Care Team Providers Care Wire Stitcher Name Role Phone Sg Richards MD Primary Care Provider + Encounter Details Date Type Department Care Team (Late st Contact Info) Description 10/27/2016 Orders Only [facility] [address] [place] [address] Va Ferrell MD [address] [place] [address] Social History Tobacco Use Types [...] Procedure Name Priority Date/Time Associated Diagnosis Comments CHLAMYDIA DNA, THIN PREP Routine 10/27/2016 6:00 PM CDT documented in this encounter Results * Chlamydia DNA, Thin Prep (10/27/2016 6:00 PM CDT) Chlamydia Amplified RNA, Liquid-based pap Negative Negative STEPHAN ANGEL Comment: Interpretive Data [...] last revised on 2015 Thin prep 10/27/2016 6:00 PM CDT 10/27/2016 8:57 PM CDT us Va Ferrell MD LAB BLOOD ORDERABLES Final Result [facility] [id number] [address] [place] [address] documented in this encounter Visit Diagnoses Not on filedocumented in this encounter Care Teams Wire Stitcher Relationship Specialty Start Date End Date Sg Richards MD PCP - General 10/17/16 07/04/21 documented as of this encounter
--- OUTSIDE RECORDS SUMMARY | 2024-07-16 12:54 | XMS_ITS | Encounter Summary ---
Author Organization [facility] Healthcare Address [address] [place] [address] Care Team Providers Care Commodity Specialist Name Role Phone Sg Richards MD Primary Care Provider + Encounter Details Date Type Department Care Team (Late st Contact Info) Description 02/22/2015 2:34 PM CDT - 02/22/2015 11:59 PM CDT Hospital Encounter [facility] William Arana MD [address] [facility] [address] SIRENA Lambert [address] [address] Annie Pretty PA [address] [facility] [address] [place] [address] Pain in joint, lower leg; Other and unspecified derangement of medial meniscus Social History Tobacco Use Types Packs/Day Years [...] as of this encounter Visit Diagnoses Diagnosis Pain in joint, lower leg Other and unspecified derangement of medial meniscus documented in this encounter Care Teams Commodity Specialist Relationship Specialty Start Date End Date Sg Richards MD PCP - General 02/14/15 07/15/16 documented as of this encounter
--- OUTSIDE RECORDS SUMMARY | 2024-07-16 12:54 | XMS_ITS | Encounter Summary ---
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..] Sign Reading Time Taken Comments Blood Pressure 110/61 11/26/2018 2:34 PM CDT Pulse 61 11/26/2018 2:34 PM CDT Temperature 36.4 ??C (97.6 ??F) 11/26/2018 2:34 PM CD T Respiratory Rate 17 11/26/2018 2:34 PM CDT Oxygen Saturation 97% 11/26/2018 2:34 PM CDT Inhaled Oxygen Concentration - - Weight 82.1 kg (181 lb) 11/25/2018 2:04 PM CDT Height 170.2 cm (5' 7 ) 11/26/2018 10:53 AM CDT Body Mass Index 28.35 11/25/2018 2:04 PM CDT documented in this encounter Discharge Summaries * Josué Strange MD - 11/26/2018 4:05 PM CDT Inpatient Discharge Summary BRIEF OVERVIEW Admitting Provider: Josué Strange MD Discharge Provider: Josué Strange MD Primary Care Physician at Discharge: Sg Richards MD [phone] Admission Date: 11/25/2018 Discharge Date: 11/26/2018 Primary Discharge Diagnosis: Active Problems: No Active Problems: There are no active problems currently on the Problem List. Please update the Problem List and refresh. Abdominal pain Acute Cholecystitis Secondary Discharge Diagnosis: No Active Problems: There are no active problems currently on the Problem List. Please update the Problem List and refresh. * No resolved hospital problems. * DETAILS OF HOSPITAL STAY Presenting Problem/History of Present Illness: No Principal Problem: There is no principal problem currently on the Problem List. Please update the Problem List and refresh. 43 y/o female, current smoker, w/ a PMHx significant for GERD, who presented to ED with sudden onset of epigastric pain which awoke her up from sleep around 4 am this morning . Pain sharp and stabbing The pain has been non-radiating and persistent since the onset. She notes that she has experienced this pain in the past, but is has not lasted this long. She did take a Vicodin this morning with no improvement of pain. Pt reports that she has been taking 875 mg Augementin BID for the last 5 months following oral surgery. She required multiple oral surgeries since 2002 after severe jaw injury following dog attack . Dr. Fung who is an oral surgeon from [facility] performed all of her surgeries since 2012. Dr. Porras who is the infectious disease doctor has been the infectious diseasedoctor prescribing Augmentin used for prophylaxis of jaw infection. She has been having abdominal pain since starting on Augmentin. She has been taking Vicodin frequently for her pain . Once in a while she takes motrin . No abdominal pain nausea or vomiting with food. On presentation she had vital signs of temp 98.2 pulse 77 BP 113/64 RR 18 oxygen 100%. She received morphine in ED which improved her pain . Hospital Course: 43 y/o female, current smoker, w/ a PMHx significant for GERD, who presented to ED with sudden onset of epigastric pain which awoke her up from sleep around 4 am this morning . Pain sharp and stabbing The pain has been non-radiating and persistent since the onset. She notes that she has experienced this pain in the past, but is has not lasted this long. She did take a Vicodin this morning with no improvement of pain. Pt reports that she has been taking 875 mg Augementin BID for the last 5 months following oral surgery. She required multiple oral surgeries since 2002 after severe jaw injury following dog attack . Dr. Fung who is an oral surgeon from [facility] performed all of her surgeries since 2012. Dr. Porras who is the infectious disease doctor has been the infectious diseasedoctor prescribing Augmentin used for prophylaxis of jaw infection. She has been having abdominal pain since starting on Augmentin. She has been taking Vicodin frequently for her pain . Once in a while she takes motrin . No abdominal pain nausea or vomiting with food. On presentation she had vital signs of temp 98.2 pulse 77 BP 113/64 RR 18 oxygen 100%. She received morphine in ED which improved her pain. Evaluation on admission with CT showing distended gallbladder with tiny calculi, minimal wall thickening and trace pericholecystic fluid; suggestive of acute cholecystitis. Surgery consulted. She was started on Zosyn IV for treatment of Cholecystitis. Physical exam with tenderness to palpat ion in mid epigastric region and tenderness to palpation in right upper quadrant . CBC with WBC 6.3Hgb 12.2 platelets 209. BMP with Na 138 K 3.8 BUN 7 Cr 0.49. Alk Phos 138 ALT 72 AST 146 . Mg 1.7 GGT 108. Patient noted that she does not drink alcohol and once in a while she takes Motrin for treatment of chronic jaw pain from injuries and multiple surgeries following dog bite in 2002. On admission she was started on Zosyn and IV Pepcid . Also received morphine as needed for her pain . Overnight her pain much improved. This morning had elevation in liver function tests. Alk Phos 138 -> 146ALT 72 -> 105 and AST 146 decreased to 112. She was scheduled to undergo surgery today but givenhistory of multiple surgeries in her jaw and complicated intubation she felt more comfortable undergoing surgery in [facility] in [place] where has had most of her medical care and surgeries. She will be transferred to [facility] in [place]. Surgeon Dr. Ignacio Frost agreed to accept patient under his care. Patient's abdominal pain much improved today. Still having some pain in right u pper quadrant . Last set of vital signs prior to transfer : Temp 97.6 pulse 61 BP 110/61 RR 17 oxygen 97%. Test Results Pending at Discharge: Operative Procedures Performed: Other Procedures: Pertinent Test Results: CT ABDOMEN PELVIS W CONTRAST ?? HISTORY: Severe epigastric pain.. ?? COMPARISON: None ?? TECHNIQUE: 100 mL Optiray 320 IV. Spiral axial scans from lung bases to ischial tuberosities. Coronal and sagittal reformatted images. ?? FINDINGS: Partially visualized lung bases are clear. Liver is normal. A few tiny dense calculi layer posteriorly near the neck of the distended gallbladder that measures approximate 4.5 cm diameter with minimal wall thickening and trace amount of pericholecystic fluid. Bile ducts are not dilated. Pancreas, spleen and adrenal glands appear normal. 4 mm parenchymal calcification is seen at upper pole of left kidney. Kidneys, ureters and urinary bladder otherwise appear normal. Uterus and right ovary appear normal. 1.8 cm cyst is present in the left ovary. Left tubal ligation band is in expected location. The other tubal ligation band is located between the left anterior margin of lower uterine segment and urinary bladder rather than at junction of right fallopian tube and uterus. Appendix is normal. Stool quantity is normal. No dilated or thickened loops of colon or small bowel are seen. Stomach appears normal. Abdominal aorta and inferior vena cava appear normal. No lymphadenopathy or ascites is seen. No other abnormal abdominal mass or fluid collection is seen. Abdominal and pelvic wall structures appear intact. Visualized bony structures are unremarkable. ?? IMPRESSION: 1. Distended gallbladder with tiny calculi, minimal wall thickening and trace pericholecystic fluid; suggestive of acute cholecystitis. 2. 4 mm parenchymal calcification upper pole of left kidney. 3. 1.8 cm left ovarian cyst. 4. Dislodged right tubal ligation band. Discharge Details Physical Exam at Discharge: Discharge Condition: stable Pulse: 61 Resp: 17 BP: 110/61 Temp: 36.4 ??C (97.6 ??F) Weight: 82.1 kg (181 lb) BP 110/61 (BP Location: Right arm, Patient Position: Lying) Pulse 61 Temp 36.4 ??C (97.6 ??F) (Temporal) Resp 17 Ht 170.2 cm (5' 7 ) Wt 82.1 kg (181 lb) LMP 11/24/2018 SpO2 97% BMI 28.35 kg/m?? Pertinent Exam Findings at Discharge: General: well-developed, no acute distress, in good spirits. cooperative and able to provide full history. HEENT: PERRL, conjunctiva non-injected, no scleral icterus, oropharynx clear and non-injected, no lesions or ulcers, no lymphadenopathy, MMM neck: supple. no JVD no carotid bruits lymph nodes non tender not swollen skin: no petechiae no ecchymosis CV: RRR, Normal S1, S2, no murmurs, rubs, or gallops Respiratory: clear transmission of air in all lung byrd. No rales, rhonchi, or wheezes Abdomen: TENDERNESS TO PALPATION IN MID EPIGASTRIC REGION Extremities: No edema, non-tender, warm, well-perfused Neuro: CN II-XII intact Labs at discharge: Recent Results (from the past 24 hour(s)) Comprehensive metabolic panel Collection Time: 11/26/18 3:06 AM Result Value Ref Range Sodium 141 135 - 145 mmol/L Potassium, pl 3.8 3.3 - 4.9 mmol/L Chloride 108 97 - 110 mmol/L CO2 23 22 - 32 mmol/L Anion Gap 10 2 - 15 mmol/L BUN 5 (L) 8 - 25 mg/dL Creatinine 0.56 (L) 0.60 - 1.10 mg/dL Glucose 97 70 - 199 mg/dL Calcium 8.8 8.5 - 10.3 mg/dL Bilirubin, total 0.9 0.1 - 1.2 mg/dL Protein, pl 5.9 (L) 6.5 - 8.5 g/dL Albumin 3.3 (L) 3.5 - 5.0 g/dL Alk phos 146 (H) 40 - 130 Units/L ALT 105 (H) 7 - 45 Units/L AST 112 (H) 10 - 45 Units/L CBC with auto differential Collection Time: 11/26/18 3:06 AM Result Value Ref Range WBC 5.4 3.8 - 9.9 K/cumm Hgb 11.4 (L) 11.9 - 15.5 g/dL Hct 32.7 (L) 35.6 - 45.5 % Plt 184 150 - 400 K/cumm MPV 10.9 9.1 - 12.3 fL RBC 3.38 (L) 3.90 - 5.20 M/cumm MCV 96.7 (H) 81.3 - 96.4 fL MCH 33.7 (H) 27.1 - 33.3 pg MCHC 34.9 32.3 - 35.7 g/dL RDW CV 13.0 11.1 - 14.9 % RDW SD 46.5 35.7 - 48.1 fL NRBC Abs 0.00 0.00 - 0.01 K/cumm Differential, auto Collection Time: 11/26/18 3:06 AM Result Value Ref Range Neutrophil absolute 3.6 1.7 - 6.5 K/cumm Immature granulocyte absolute 0.0 0.0 - 0.1 K/cumm Lymphocytes absolute 1.2 0.8 - 3.3 K/cumm Monocyte absolute 0.4 0.2 - 0.8 K/cumm Eosinophils absolute 0.1 0.0 - 0.5 K/cumm Basophils, abs 0.0 0.0 - 0.1 K/cumm Neutrophils 66.7 % Immature granulocytes 0.2 % Lymphocytes 22.6 % Monocytes 8.0 % Eosinophils 1.9 % Basophils 0.6 % eGFR Collection Time: 11/26/18 3:06 AM Result Value Ref Range GFR 114 mL/min/1.73 m2 POCT hCG, urine Collection Time: 11/26/18 1:00 PM Result Value Ref Range HCG, ur, POC Negative Lot Number [id number] QC Backgroud Clear Acceptable QC Control Line Acceptable Discharge Disposition: Discharge to home or self care No Order Discharge Instructions: patient will be transferred to [facility] in [place] to undergo Cholecystectomy Discharge Medications: Your medication list ASK your doctor about these medications amoxicillin-clavulanate 875-125 mg per tablet Commonly known as: AUGMENTIN gabapentin 600 mg tablet Commonly known as: NEURONTIN take 1 tablet by oral route 3 times every day HYDROcodone-acetaminophen 5-325 mg per tablet Commonly known as: NORCO take 1 Tablet by oral route tid as needed for pain levETIRAcetam 1,000 mg tablet Commonly known as: KEPPRA Take 2 tablets (2,000 mg total) by mouth 2 (two) times a day. pantoprazole DR 40 mg EC tablet Commonly known as: PROTONIX take 1 tablet by oral route every day ZOFRAN 4 mg tablet Generic drug: ondansetron Outpatient Follow-Up: Future Appointments Date Time Provider Department Center 01/14/2019 11:00 AM Jerry Augustine MD PhD EPI [facility] 6[facility] NL No follow-up provider specified. Time Spent on Discharge: 35 minutes documented in this encounter Medications at Time of Discharge ibuprofen (ADVIL,MOTRIN) 800 mg tablet Take 800 mg by mouth every 8 (eight) hours 11/04/2018 01/03/2022 lamoTRIgine (LaMICtal) 100 mg tablet Take 350 mg by mouth 2 times daily 06/23/2016 03/18/2019 levETIRAcetam (KEPPRA) 1,000 mg tabletIndications :Tonic-Clonic Epilepsy Treatment Adjunct Take 2 tablets (2,000 mg total) by mouth 2 (two) times a day. 120 tablet 11 01/12/2018 01/28/2019 traZODone (DESYREL) 100 mg tablet 05/26/2016 09/29/2022 documented as of this encounter Discharge Disposition Disposition Code Departure Means Destination Discharge to a short term [facility] for [facility] documented in this encounter Progress Notes * Deepika Martinez RD - 11/26/2018 10:45 AM CDT [facility] Nutrition Assessment NAME:Kayla Avila :1975 AGE:43 y.o. SEX: female ADMISSION DATE:11/25/2018, CURRENT LOS is 1 days. ENCOUNTER DATE: 11/26/18 11:36 AM REASON for ASSESSMENT: Initial Nutrition Assessment and Consult/Referral DX: CHOLECYSTITIS, ACUTE Nutrition Screen What diet do you follow at home?: soft diet Have You Recently Lost Weight Without Trying?: Yes (Comment) How Much Weight Have You Lost?: 35.8 kg (79 lb) What is the Timeframe of Weight Change?: (5 months) Poor Oral Intake for Four or More Days Prior to Admission: No Pt reports having 54 jaw surgeries following a dog attack. Her mouth was wired for 5 months resulting in 79 lb wt loss. This is a significant wt loss > 10%/5 months. Pt to have gall bladder removed today and possible discharge today or tomorrow. Discussed several supplements to try on patient. [place] Instant Breakfast drink, as patient dislikes Ensure , Boost & Premier Protein. Pt also a greed to try Magic Cup and V8 Splash. Promod or Beneprotein is also recommended with every meal. Nursing informed. Current diet order: NPO Diet Pt intake is inadequate. PO intakes: NPO x 1 day. ALLERGIES: Adhesive tape-silicones; Erythromycin; and Silicone ASPEN Malnutrition Assessment: Acute Illness/Injury Mild/Moderate Energy Intake: < 75% energy intake compared to estimated energy needs > 7 days Weight Loss: 7.5% in 3 months Body Fat: Mild/Moderate Patient Meets Criteria for Moderate Malnutrition: Yes( 79 lbs wt loss/ 5months. Gallbladder surgerytoday. Has had 54 jaw surgeries in 5 months. ) Nutrition Focused Physical Exam Notes: Nutrition Needs Calculations: Calculated Energy Needs Using Equations Weight Used for Equation Calculations (RD Determined): 82.1 kg (181 lb) Weight: 82.1 kg (181 lb) Height: 170.2 cm (5' 7 ) [place] Equation (Overweight or Obese Patients): 1509 Equation Chosen to Use by RD: [place] Stress Factor: 1.3 Total Energy Needs: 1961.7 kcal Temp: 36.7 ??C (98.1 ??F) Total Energy Needs + Fever Factor: 1961.7 Estimated Protein Needs Type of Weight Used for Estimated Protein : Current Protein Needs Based on g/k.3 Total Protein Estimated Needs (gm): 106.73 Kcal/kg Type of Weight Used for Estimated Kcals: Current Kcal/k Total Kcal/kg Estimated Needs : 1806.22 Estimated Fluid Needs Type of Weight Used for Estimated Fluid Needs: Current Fluid Needs Based on : 30 ml/kg Total Fluid Estimated Needs: 2463.03 Estimated Carbohydrate Needs Type of Weight Used for Estimated Carbohydrate Needs: Current Recommended Carbohydrates for Breakfast (gm) : 60 Recommended Carbohydrates for AM Snack (gm) : 5 Recommended Carbohydrates for Lunch (gm) : 60 Recommended Carbohydrates for Afternoon Snack (gm) : 5 Recommended Carbohydrates for Dinner (gm) : 60 Recommended Carbohydrates for HS Snack (gm) : 5 Total Daily Carbohydrates Recommended (gm): 195 Estimated needs: ?? Total Kcal/kg Estimated Needs : 1806.22 based on Kcal/k. Type of Weight Used for Estimated Kcals: Current ?? MSJ Total Energy Needs: 1961.7 kcal using Stress Factor: 1.3 ?? [place] State Total Energy Needs + Fever Factor: 1961.7 ?? Total Protein Estimated Needs (gm): 106.73 Protein Needs Based on g/k.3 Type of Weight Used for Estimated Protein : Current. ?? Total Fluid Estimated Needs: 2463.03 Fluid Needs Based on : 30 ml/kg. Objective Anthropometrics Weight: 82.1 kg (181 lb) Admission Weight : 82.1 kg Weight Change: 2.72 kg (6.00 lbs) IBW/kg (Calculated) : 61.2 kg Height: 170.2 cm (5' 7 ) Weight in (lb) to have BMI = 25: 159.3 BMI (Calculated): 28.3 134% IBW. 3 Day I/O Summary 11/24 1899 - 11/26 0659 In: 1216 [I.V.:1216] Out: - Temp: 36.7 ??C (98.1 ??F) [place] body weight: 61.6 kg (135 lb 12.9 oz) Adjusted ideal body weight: 69.8 kg (153 lb 14.1 oz) Past Medical History: Diagnosis Date ??? Depression Depression ??? HX OTHER MEDICAL heart attack; Comments: [facility] 02/14/2015 - ??? HX OTHER MEDICAL back pain; Comments: [facility] 02/14/2015 - ??? HX OTHER MEDICAL Missed x2; Comments: [facility] 06/13/2016 - ??? HX OTHER MEDICAL Dog attack; Comments: [facility] 06/13/2016 - ??? HX OTHER MEDICAL Abnormal pap - 'precancer cells'; Comments: [facility] 06/13/2016 - ??? HX OTHER MEDICAL 2002 Left titanium joint 2002; Comments: [facility] 09/23/2016 - ??? HX OTHER MEDICAL 2010 Left ear cyst.; Comments: [facility] 09/23/2016 - ??? Hypertension Hypertension ??? Seizure disorder (CMS/HCC) Seizure disorder Medications and Lab Review: Scheduled Meds: famotidine 40 mg intravenous BID heparin 5,000 Units subcutaneous Q8H ELIZABETH levETIRAcetam 1,000 mg oral BID morphine 2 mg intravenous Once piperacillin-tazobactam 3.375 g intravenous Q6H ELIZABETH Continuous Infusions: sodium chloride 0.9% 100 mL/hr Last Rate: 100 mL/hr (11/26/18 0323) Sodium Date Value Ref Range Status 11/26/2018 141 135 - 145 mmol/L Final Potassium, pl Date Value Ref Range Status 11/26/2018 3.8 3.3 - 4.9 mmol/L Final BUN Date Value Ref Range Status 11/26/2018 5 (L) 8 - 25 mg/dL Final Creatinine Date Value Ref Range Status 11/26/2018 0.56 (L) 0.60 - 1.10 mg/dL Final Albumin Date Value Ref Range Status 11/26/2018 3.3 (L) 3.5 - 5.0 g/dL Final Magnesium Date Value Ref Range Status 11/25/2018 1.7 1.6 - 2.4 mg/dL Final Calcium Date Value Ref Range Status 11/26/2018 8.8 8.5 - 10.3 mg/dL Final No results found for: HGBA1C POC Glucose: na Nursing Assessment: Derek Scale Score: 22 Nutrition Follow-Up : 11/29/18 Nutrition Diagnosis 1: Biting/Chewing difficulty( pt has lost 79 lb/5months d/t having her jaw wired. Following a dog attack. She has had over 54 jaw surgeries. Currently NPO before gallbladder surgery. Pt can tolerate soft foods- pureed consistentcy. Unable to chew for ~ 12 more months. ) Related to: Increased needs, Oral pharyngeal, Wounds Pt is moderately. Malnourished. Interventions: [place] diet preferences within the limits of nutrition care order, Meals and snacks Monitoring and Evaluation: Diet advancement, Discharge plans, Plan of care, Labs, Wound healing ?? Goals: Diet consistency appropriate for patient needs during stay, Adequate nutrition to meet estimated needs by next assessment ?? Offer patient Soft diet-that is tolerable or ST recommendation. Magic cup, V8 Splash, Beneprotein 2 scoops/meal or liquid promod /each meal. Information will be given to patient to purchase these items following discharge. Follow up per policy. Nutritional Risk: high Follow up date: 11/29/[address],LDN * Corky Stewart RN - 11/25/2018 12:24 PM CDT 11/25/18 1223 Discharge Planning Type of Residence Private residence Living Arrangements Spouse/significant other Assistance Needed uses no aids, handles her ADL'w without diff, goal is to return home and there are no known barriers to discharge noted at this time, pt choice given and 6 clicks done * Corky Stewart RN - 11/25/2018 12:23 PM CDT 11/25/18 1223 Basic Mobility - 6 Click How much difficulty does the patient have: Turning over in bed 4 How much difficulty does the patient currently have: Sitting down and standing up from a chair witharms? 4 How much difficulty does the patient have: Moving from lying on back to sitting on the side of the bed? 4 How much difficulty does the patient have: Moving to and from a bed to a chair including wheelchair? 4 How much help does the patient currently need: Walk in hospital room? 4 How much help from another person does the patient currently need: Climbing 3-5 steps with a railing? 4 Total Score (range 6-24) 24 * Corky Stewart RN - 11/25/2018 12:22 PM CDT 11/25/18 1222 Communications Patient choice (Home Health/Hospice) list given to patient/business development representative? Yes Fiduciary Responsibility Patient/Designated decision maker was informed of [facility] fiduciary relationship as necessary documented in this encounter H&P Notes * Josué Strange MD - 11/25/2018 11:53 AM CDT History and Physical Date of Service: 11/25/2018 Primary Care Physician: Sg Richards MD [phone] SUBJECTIVE: HPI: 43 y/o F, current smoker, w/ a PMHx significant for GERD, who presented to ED with sudden onset of epigastric pain which awoke her up from sleep around 4 am this morning . Pain sharp and stabbing The pain has been non-radiating and persistent since the onset. She notes that she has experienced this pain in the past, but is has not lasted this long. She did take a Vicodin this morning with no improvement of pain. Pt reports that she has been taking 875 mg Augementin BID for the last 5 months following oral surgery. She required multiple oral surgeries since 2002 after severe jaw injury following dog attack . Dr. Fung who is an oral surgeon from [facility] performed all of her surgeries since 2012. Dr. Porras who is the infectious disease doctor has been the infectious disease doctor prescribing Augmentin used for prophylaxis of jaw infection. She has been having abdominal pain since starting on Augmentin. She has been taking Vicodin frequently for her pain . Once in a while she takes motrin . No abdominal pain nausea or vomiting with food. On presentation she had vital signs of temp 98.2 pulse 77 BP 113/64 RR 18 oxygen 100%. She received morphine in ED which improved her pain . Past Medical History: Diagnosis Date ??? Depression Depression ??? HX OTHER MEDICAL heart attack; Comments: [facility] 02/14/2015 - ??? HX OTHER MEDICAL back pain; Comments: [facility] 02/14/2015 - ??? HX OTHER MEDICAL Missed x2; Comments: [facility] 06/13/2016 - ??? HX OTHER MEDICAL Dog attack; Comments: RED 06/13/2016 - ??? HX OTHER MEDICAL Abnormal pap - 'precancer cells'; Comments: RED 06/13/2016 - ??? HX OTHER MEDICAL 2003 Left titanium joint 2002; Comments: [facility] 09/23/2016 - ??? HX OTHER [...] Cryoablation ??? TUBAL LIGATION Bilateral tubal ligation (Not in a hospital admission) Allergies Allergen Reactions ??? Adhesive Tape-Silicones Hives ??? Erythromycin Other (See comments) and Hallucinations Reaction: Neuro problems, , ??? Silicone Hives Social History Tobacco Use ??? Smoking status: Never Smoker ??? Smokeless tobacco: Never Used ??? Tobacco comment: Smoking History Packs/day: 0.5 Packs Substance Use Topics ??? Alcohol use: Not Currently Family History Problem Relation Age of Onset [...] history of arthritis.; ??? Seizures Maternal Grandmother Review of Systems: Review of Systems POSITIVE FOR ABDOMINAL PAIN general: negative for fever chills weight loss weight gain. negative for weakness skin: negative for rashes itching color changes Head: negative for headache neck pain Ears: negative for decreased hearing , ringing in ears eyes: negative for vision loss, blurry or double vision nose: negative for stuffiness discharge throat: negative for bleeding, dentures, dry mouth, hoareseness neck: negative for swollen glands, lumps breasts: negative for discharge, lumps respiratory: negative for wheezing and cough cardiovascular: negative for chest pain palpitations. gastrointestinal: negative for vomiting, nausea, abdominal pain or diarrhea urinary: negative for dysuria. no change in urinary frequency musculoskeletal: negative for muscle, joint pain, swelling of joints or back pain neurologic: negative for dizziness seizures numbness or tingling hematologic: negative for easy bruising or bleeding endocrine: negative for sweating or thirst psychiatric: negative for depression or nervousness OBJECTIVE: Vitals: Arrival Vitals Temp 11/25/18 09 36.8 ??C (98.2 ??F) Pulse 11/25/18 0915 77 Resp 11/25/18 09 18 BP 11/25/18 0915 113/64 SpO2 11/25/18914 100 % Temp src 11/25/18 09 Temporal Heart Rate Source -- Patient Position -- BP Location -- FiO2 (%) -- Most Recent : Vitals: 11/25/18 0915 11/25/18 0926 11/25/18 0930 11/25/18 1000 BP: 113/64 113/64 101/65 Pulse: 77 64 68 Resp: 18 Temp: 36.8 ??C (98.2 ??F) TempSrc: Temporal SpO2: 100% 99% 100% Weight: 79.4 kg (175 lb) Height: 170.2 cm (5' 7 ) No intake/output data recorded. No intake/output data recorded. Physical Exam: Physical Exam General: well-developed, no acute distress, in good spirits. cooperative and able to provide full history. HEENT: PERRL, conjunctiva non-injected, no scleral icterus, oropharynx clear and non-injected, no lesions or ulcers, no lymphadenopathy, MMM neck: supple. no JVD no carotid bruits lymph nodes non tender not swollen skin: no petechiae no ecchymosis CV: RRR, Normal S1, S2, no murmurs, rubs, or gallops Respiratory: clear transmission of air in all lung byrd. No rales, rhonchi, or wheezes Abdomen: TENDERNESS TO PALPATION IN MID EPIGASTRIC REGION Extremities: No edema, non-tender, warm, well-perfused Neuro: CN II-XII intact Lab/Radiology/Diagnostic Review: Recent Labs Lab Units 11/25/18 0938 WBC K/cumm 6.3 HEMOGLOBIN g/dL 12.2 HEMATOCRIT % 35.3* PLATELETS K/cumm 209 Recent Labs Lab Units 11/25/18 0938 SODIUM mmol/L 138 POTASSIUM PLASMA mmol/L 3.8 CHLORIDE mmol/L 104 CO2 mmol/L 24 ANIONGAP mmol/L 10 BUN SERUM mg/dL 7* CREATININE mg/dL 0.49* GLUCOSE mg/dL 102 CALCIUM mg/dL 9.3 CT ABDOMEN PELVIS W CONTRAST ?? HISTORY: Severe epigastric pain.. ?? COMPARISON: None ?? TECHNIQUE: 100 mL Optiray 320 IV. Spiral axial scans from lung bases to ischial tuberosities. Coronal and sagittal reformatted images. ?? FINDINGS: Partially visualized lung bases are clear. Liver is normal. A few tiny dense calculi layer posteriorly near the neck of the distended gallbladder that measures approximate 4.5 cm diameter with minimal wall thickening and trace amount of pericholecystic fluid. Bile ducts are not dilated. Pancreas, spleen and adrenal glands appear normal. 4 mm parenchymal calcification is seen at upper pole of left kidney. Kidneys, ureters and urinary bladder otherwise appear normal. Uterus and right ovary appear normal. 1.8 cm cyst is present in the left ovary. Left tubal ligation band is in expected location. The other tubal ligation band is located between the left anterior margin of lower uterine segment and urinary bladder rather than at junction of right fallopian tube and uterus. Appendix is normal. Stool quantity is normal. No dilated or thickened loops of colon or small bowel are seen. Stomach appears normal. Abdominal aorta and inferior vena cava appear normal. No lymphadenopathy or ascites is seen. No other abnormal abdominal mass or fluid collection is seen. Abdominal and pelvic wall structures appear intact. Visualized bony structures are unremarkable. ?? IMPRESSION: 1. Distended gallbladder with tiny calculi, minimal wall thickening and trace pericholecystic fluid; suggestive of acute cholecystitis. 2. 4 mm parenchymal calcification upper pole of left kidney. 3. 1.8 cm left ovarian cyst. 4. Dislodged right tubal ligation band. ASSESSMENT/PLAN: Active Problems: No Active Problems: There are no active problems currently on the Problem List. Please update the Problem List and refresh. Acute cholecystitis Imaging with distended gallbladder pericholecystic fluid suggestive of acute cholecystitis Start on Zosyn . Morphine for pain control Plan to undergo Cholecystectomy in am Gastritis Exquisite tenderness to palpation in mid epigastric region and right upper quadrant region Start on Pepcid IV Prior to restarting on Augmentin recommend discussing [facility] effect of liver inflammation with Augmentin DVT prophylaxis Heparin No Order ESTIMATED LENGTH OF STAY: 2 midnights Josué Strange MD 11/25/2018 11:53 AM documented in this encounter Nursing Notes * Erma Mariee RN - 11/26/2018 6:02 PM CDT Report was called to Deisy at [facility]. Pt was given packet to give to nurse at [facility].Pt was escorted out to personal vehicle with all belongings in hand. Pt was instructed to go straight to [facility]. * Erma Mariee RN - 11/25/2018 2:[address] Boyd from Anesthesiology that the patient would like to speak to them about prior difficulty with surgery. documented in this encounter ED Notes * Stella Avalos RN - 11/25/2018 9:24 AM CDT RUQ abd pain and epigastric pain started at 0400 today. Has had episodes of this before, but not sosevere NO nausea or vomiting * Nicole Rivera MD - 11/25/2018 9:22 AM CDTAssociated Order(s): ECG 12 lead HPI Chief Complaint Patient presents with ??? Abdominal Pain (Provider at bedside 0915): Kayla Avila is a 43 y/o F, current smoker, w/ a PMHx significant for GERD, who presents to the ED for evaluation of sudden onset epigastric pain. Pt explains that she was awoken from sleep around 0400 this morning with a sharp and stabbing pain in her epigastrium. The pain has been non-radiating and persistent since the onset. She notes that she has experiencedthis pain in the past, but is has not lasted this long. She did take a Vicodin this morning with noimprovement of pain. Pt reports that she has been taking 875 mg Augementin BID for the last 5 months following an oral surgery. There has been no associated nausea, vomiting, diarrhea. Denies fever, chills. Denies being in the presence of any known ill contacts. Denies any previous abdominal surgeries. No further complaints were expressed at this time. History provided by: Patient Patient History Patient Active Problem List Diagnosis Date Noted ??? Seizures (CMS/HCC) 01/09/2018 ??? Arthritis 09/07/2017 ??? Knee pain 09/22/2016 Class: Chronic ??? Current smoker 09/22/2016 Class: Chronic ??? Obesity with body mass index 30 or greater 06/04/2016 Class: Chronic ??? Sleep apnea 06/04/2016 Class: Chronic ??? Epilepsy (CMS/HCC) 06/04/2016 Class: Chronic ??? Chronic pain 01/09/2016 ??? Gastroesophageal reflux disease 01/09/2016 ??? 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 Depression 09/24/2015 Past Medical History: [...] MEDICAL 2002 Left titanium joint 2002; Comments: AKZ 09/23/2016 - ??? HX OTHER MEDICAL 2010 [...] Constitutional: Negative for chills, fatigue and fever. HENT: Negative for congestion, ear pain, rhinorrhea, sneezing and sore throat. Respiratory: Negative for cough, shortness of breath and wheezing. Cardiovascular: Negative for chest pain and palpitations. Gastrointestinal: Positive for abdominal pain. Negative for constipation, diarrhea, nausea and vomiting. Genitourinary: Negative for dysuria and frequency. Musculoskeletal: Negative for arthralgias, back pain, myalgias and neck pain. Skin: Negative for rash and wound. Neurological: Negative for dizziness, syncope, weakness, light-headedness and headaches. All other systems reviewed and are negative. Physical Exam ED Triage Vitals Temp Pulse Resp BP SpO2 11/25/18 0926 11/25/18 0915 11/25/18 0926 11/25/18 0915 11/25/18 0915 36.8 ??C (98.2 ??F) 77 18 113/64 100 % Temp src Heart Rate Source Patient Position BP Location FiO2 (%) 11/25/1826 -- -- -- -- Temporal Physical Exam Constitutional: She is oriented to person, place, and time. She appears well- developed and well-nourished. 43 yo female, in mild distress secondary to pain, grasping upper abdomen. at bedside. HENT: Head: Normocephalic and atraumatic. Mouth/Throat: Oropharynx is clear and moist. No nuchal rigidity; no meningeal signs. Eyes: Conjunctivae and EOM are normal. Neck: Normal range of motion. Neck supple. Cardiovascular: Normal rate, regular rhythm, normal heart sounds and intact distal pulses. Exam reveals no gallop and no friction rub. No murmur heard. Pulmonary/Chest: Effort normal and breath sounds normal. No respiratory distress. She has no wheezes. She has no rales. Abdominal: Soft. Bowel sounds are normal. She exhibits no distension and no mass. There is tenderness. No hernia. TTP of the epigastrium; no rebound. No CVA tenderness to percussion. Musculoskeletal: Normal range of motion. She exhibits no edema, tenderness or deformity. Neurological: She is alert and oriented to person, place, and time. Skin: Skin is warm and dry. Capillary refill takes less than 2 seconds. No rash noted. She is not diaphoretic. No erythema. No pallor. Psychiatric: She has a normal mood and affect. Her behavior is normal. Nursing note and vitals reviewed. [facility] Labs Reviewed URINALYSIS AND REFLEX TO MICROSCOPIC AND CULTURE - Abnormal Result Value Color, ur Yellow Clarity, ur Cloudy (*) Specific gravity, ur 1.007 (*) pH, urine 6.0 Protein, ur ql Negative Glucose, ur ql Negative Ketones, ur Negative Bilirubin, ur Negative Blood, ur 3+ (*) Urobilinogen, ur 0.2 Nitrite, ur Negative Leukocyte esterase, ur Negative Narrative: Urine pH is affected by diet, medications, systemic acid-base disturbances, and renal tubular function. pH may affect urinary stone formation. For example, urine pH below 6.0 may help reduce the tendency for calcium phosphate stones and pH greater than 6.0 may reduce the tendency for uric acid stone formation. Source: Hernandez in[employer].Last revised 07-30-2017 COMPREHENSIVE METABOLIC PANEL - Abnormal Sodium 138 Potassium, pl 3.8 Chloride 104 CO2 24 Anion Gap 10 BUN 7 (*) Creatinine 0.49 (*) Glucose 102 Calcium 9.3 Bilirubin, total 0.8 Protein, pl 6.6 Albumin 3.6 Alk phos 138 (*) ALT 72 (*) AST 146 (*) Narrative: CBC WITH AUTO DIFFERENTIAL - Abnormal WBC 6.3 Hgb 12.2 Hct 35.3 (*) Plt 209 MPV 10.8 RBC 3.66 (*) MCV 96.4 MCH 33.3 MCHC 34.6 RDW CV 12.9 RDW SD 46.0 NRBC Abs 0.00 Narrative: BILIRUBIN, DIRECT - Abnormal Bilirubin, direct 0.5 (*) Narrative: URINALYSIS, MICROSCOPIC ONLY - Abnormal WBC, ur 0-5 RBC, ur 6-10 (*) Epithelial cells, squamous, ur 6-10 (*) Bacteria, ur Negative Hyaline casts, ur 1-5 Narrative: SEPSIS LACTATE WITH REFLEX Sepsis Lactate 1.3 Narrative: PROTIME-INR PT 12.4 INR 1.10 Narrative: TROPONIN T Troponin T <0.01 Narrative: DIFFERENTIAL AUTO Neutrophil absolute 4.7 Immature granulocyte absolute 0.0 Lymphocytes absolute 1.0 Monocyte absolute 0.5 Eosinophils absolute 0.1 Basophils, abs 0.0 Neutrophils 74.4 Immature granulocytes 0.3 Lymphocytes 16.5 Monocytes 7.3 Eosinophils 1.0 Basophils 0.5 Narrative: EGFR GFR 119 Narrative: GAMMA GT MAGNESIUM LIPASE CT Abdomen Pelvis W Contrast Final Result 1. Distended gallbladder with tiny calculi, minimal wall thickening and trace pericholecystic fluid; suggestive of acute cholecystitis. 2. 4 mm parenchymal calcification upper pole of left kidney. 3. 1.8 cm left ovarian cyst. 4. Dislodged right tubal ligation band. Electronically signed by: Albert Vance Jr., M.D. BP 108/77 Pulse 58 Temp 36.8 ??C (98.2 ??F) (Temporal) Resp 18 Ht 170.2 cm (5' 7 ) Wt 79.4 kg (175 lb) LMP 11/24/2018 SpO2 99% BMI 27.41 kg/m?? Medications piperacillin-tazobactam (ZOSYN) 3.375 g in sodium chloride 0.9% 50 mL IVPB (3.375 g intravenous NotGiven 11/25/18 1200) famotidine (PEPCID) injection 40 mg (has no administration in time range) morphine injection 2 mg (has no administration in time range) sodium chloride 0.9% bolus 1,000 mL (0 mL intravenous Stopped 11/25/18 1219) morphine injection 2 mg (2 mg intravenous Given 11/25/18 0955) ondansetron (ZOFRAN) injection 4 mg (4 mg intravenous Given 11/25/18 0953) ioversol intravenous syringe 100 mL (100 mL intravenous Given 11/25/18 1046) famotidine (PEPCID) injection 20 mg (20 mg intravenous Given 11/25/18 1221) ECG 12 lead Date/Time: 11/25/2018 11:33 AM Performed by: Nicole Rivera MD Authorized by: Nicole Rivera MD Rate: ECG rate: 61 ECG rate assessment: normal Rhythm: Rhythm: sinus rhythm Ectopy: Ectopy: none QRS: QRS axis: Normal ST segments: ST segments: Normal T waves: T waves: normal Interpretation: Interpretation: normal [facility] ED Course as of Nov 25 1248 Time: 11/25 1137 Value: Bilirubin, direct(!): 0.5 Comment: (Reviewed) By: All Bounds Time: 11/25 1137 Value: ALT(!): 72 Comment: (Reviewed) By: All Bounds Time: 11/25 1137 Value: AST(!): 146 Comment: (Reviewed) By: All Bradford Time: 11/25 1137 Comment: Discussed pt's presentation, case, and resulted labs with, Dr. Warner, gen surg, who kindly agrees to consult on the case By: All Bradford Time: 11/25 1157 Comment: Discussed pt's presentation, case, and resulted labs with, Dr. Strange, Hospitalist, who accepts the pt for admission. By: All Bradford Time: 11/25 1158 Comment: Resulted labs and radiology readings were reviewed. Discussed the treatment plan moving forward. Pt is agreeable to the pursuance of admission for further evaluation and treatment. By: All Bradford CLINICAL IMPRESSION Cholecystitis, acute This note was prepared by Sumeet Bradford, acting as scribe for, Nicole Rivera MD I, Nicole Rivera MD, have personally performed the services described in the documentation , reviewed the documentation, as recorded by the scribe in my presence, and it accurately and completely records my words and actions. Nicole Rivera MD 11/25/18 1257 documented in this encounter Miscellaneous Notes * Plan of Care - Erma Mariee RN - 11/26/2018 5:47 PM CDT Problem: Health Behavior: Goal: Understanding of discharge needs will improve 11/26/20181746 by Erma Mariee RN Outcome: Adequate for Discharge 11/26/20181746 by Erma Mariee RN Outcome: Adequate for Discharge Problem: Activity: Goal: Risk for activity intolerance will decrease 11/26/20181746 by Erma Mariee RN Outcome: Adequate for Discharge 11/26/20181746 by Erma Mariee RN Outcome: Adequate for Discharge Problem: Lack of Knowledge: Goal: Knowledge of disease or condition will improve 11/26/20181746 by Erma Mariee RN Outcome: Adequate for Discharge 11/26/20181746 by Erma Mariee RN Outcome: Adequate for Discharge Goal: Ability to state and carry out methods to decrease the pain will improve 11/26/20181746 by Erma Mariee RN Outcome: Adequate for Discharge 11/26/20181746 by Erma Mariee RN Outcome: Adequate for Discharge Problem: Nutritional: Goal: Nutritional status will be supported 11/26/20181746 by Erma Mariee RN Outcome: Adequate for Discharge 11/26/20181746 by Erma Mariee RN Outcome: Adequate for Discharge Problem: Fluid Volume: Goal: Maintenance of adequate hydration will improve 11/26/20181746 by Erma Mariee RN Outcome: Adequate for Discharge 11/26/20181746 by Erma Mariee RN Outcome: Adequate for Discharge Problem: Health Behavior: Goal: Ability to state signs and symptoms to report to health care provider will improve 11/26/20181746 by Erma Mariee RN Outcome: Adequate for Discharge 11/26/20181746 by Erma Mariee RN Outcome: Adequate for Discharge Problem: Physical Regulation: Goal: Complications related to the disease process, condition or treatment will be avoided or minimized 11/26/20181746 by Erma Mariee RN Outcome: Adequate for Discharge 11/26/20181746 by Erma Mariee RN Outcome: Adequate for Discharge Goal: Ability to maintain clinical measurements within normal limits will improve 11/26/20181746 by Erma Mariee RN Outcome: Adequate for Discharge 11/26/20181746 by Erma Mariee RN Outcome: Adequate for Discharge Problem: Sensory: Goal: Ability to identify factors that increase the pain will improve 11/26/20181746 by Erma Mariee RN Outcome: Adequate for Discharge 11/26/20181746 by Erma Mariee RN Outcome: Adequate for Discharge Goal: Ability to notify healthcare provider of pain before it becomes unmanageable or unbearable will improve 11/26/20181746 by Erma Mariee RN Outcome: Adequate for Discharge 11/26/20181746 by Erma Mariee RN Outcome: Adequate for Discharge Goal: Pain level will decrease 11/26/20181746 by Erma Mariee RN Outcome: Adequate for Discharge 11/26/20181746 by Erma Mariee RN Outcome: Adequate for Discharge Goals: Clinical Goals for the Shift: VSS, NPO, OR today, and remain free from injury Summary: VSS, has good intake and output, went to OR but no surgery due to jaw issues, IV fluids infused, and pain is well controled * Perioperative Nursing Note - Enid Narvaez RN - 11/26/2018 2:[address] Zuñiga spoke with pt. Dr. Dunn will see pt. On the floor. * Perioperative Nursing Note - Enid Narvaez, CHIN - 11/26/2018 2:10 PM CDT Call to Dr. Strange. Dr. Zuñiga speaking with him. * Perioperative Nursing Note - Enid Narvaez RN - 11/26/2018 1:[address] Warner in amb surgery. Did not see pt. Pt. Had spoke with her surgeon at [facility] and he wants aminta in on her surgery when it is done. Dr. Warner left. * Perioperative Nursing Note - Enid Narvaez RN - 11/26/2018 1:34 PM CDT Pt. States she does not want to take risks with her jaw surgeries. If there is a possible problem with it, I will just go home and have surgery at [facility] . * Perioperative Nursing Note - Enid Narvaez RN - 11/26/2018 1:[address] Zuñiga talking with pt. Pt. States she can not be intubated orally. Dr. Zuñiga talking with her and talking with options for sedation during surgery. * Plan of Care - Zeus Ontiveros RN - 11/26/2018 4:07 AM CDT Problem: Health Behavior: Goal: Understanding of discharge needs will improve Outcome: Progressing Problem: Activity: Goal: Risk for activity intolerance will decrease Outcome: Progressing Problem: Lack of Knowledge: Goal: Knowledge of disease or condition will improve Outcome: Progressing Goal: Ability to state and carry out methods to decrease the pain will improve Outcome: Progressing Problem: Nutritional: Goal: Nutritional status will be supported Outcome: Progressing Problem: Fluid Volume: Goal: Maintenance of adequate hydration will improve Outcome: Progressing Problem: Health Behavior: Goal: Ability to state signs and symptoms to report to health care provider will improve Outcome: Progressing Problem: Physical Regulation: Goal: Complications related to the disease process, condition or treatment will be avoided or minimized Outcome: Progressing Goal: Ability to maintain clinical measurements within normal limits will improve Outcome: Progressing Problem: Sensory: Goal: Ability to identify factors that increase the pain will improve Outcome: Progressing Goal: Ability to notify healthcare provider of pain before it becomes unmanageable or unbearable will improve Outcome: Progressing Goal: Pain level will decrease Outcome: Progressing Goals: Clinical Goals for the Shift: VSS, pain control. NPO after midnight. Summary: VSS, Prn pain meds given as ordered. NPO for surgical procedure today. * Plan of Care - Erma Mariee RN - 11/25/2018 3:56 PM CDT Problem: Health Behavior: Goal: Understanding of discharge needs will improve 11/25/2018 1556 by Erma Mariee RN Outcome: Progressing 11/25/2018 1556 by Erma Mariee RN Outcome: Progressing Problem: Activity: Goal: Risk for activity intolerance will decrease 11/25/2018 1556 by Erma Mariee RN Outcome: Progressing 11/25/2018 1556 by Erma Mariee RN Outcome: Progressing Problem: Lack of Knowledge: Goal: Knowledge of disease or condition will improve 11/25/2018 1556 by Erma Mariee RN Outcome: Progressing 11/25/2018 1556 by Erma Mariee RN Outcome: Progressing Goal: Ability to state and carry out methods to decrease the pain will improve 11/25/2018 1556 by Erma Mariee RN Outcome: Progressing 11/25/2018 1556 by Erma Mariee RN Outcome: Progressing Problem: Nutritional: Goal: Nutritional status will be supported 11/25/2018 1556 by Erma Mariee RN Outcome: Progressing 11/25/2018 1556 by Erma Mariee RN Outcome: Progressing Problem: Fluid Volume: Goal: Maintenance of adequate hydration will improve 11/25/2018 1556 by Erma Mariee RN Outcome: Progressing 11/25/2018 1556 by Erma Mariee RN Outcome: Progressing Problem: Health Behavior: Goal: Ability to state signs and symptoms to report to health care provider will improve 11/25/2018 1556 by Erma Mariee RN Outcome: Progressing 11/25/2018 1556 by Erma Mariee RN Outcome: Progressing Problem: Physical Regulation: Goal: Complications related to the disease process, condition or treatment will be avoided or minimized 11/25/2018 1556 by Erma Mariee RN Outcome: Progressing 11/25/2018 1556 by Erma Mariee RN Outcome: Progressing Goal: Ability to maintain clinical measurements within normal limits will improve 11/25/2018 1556 by Erma Mariee RN Outcome: Progressing 11/25/2018 1556 by Erma Mariee RN Outcome: Progressing Problem: Sensory: Goal: Ability to identify factors that increase the pain will improve 11/25/2018 1556 by Erma Mariee RN Outcome: Progressing 11/25/2018 1556 by Erma Mariee RN Outcome: Progressing Goal: Ability to notify healthcare provider of pain before it becomes unmanageable or unbearable will improve 11/25/2018 1556 by Erma Mariee RN Outcome: Progressing 11/25/2018 1556 by Erma Mariee RN Outcome: Progressing Goal: Pain level will decrease 11/25/2018 1556 by Erma Mariee RN Outcome: Progressing 11/25/2018 1556 by Erma Mariee RN Outcome: Progressing Goals: Clinical Goals for the Shift: VSS, pain control, good intake ando output, and remain free from injury Summary: VSS, pain is well controled with PRN medication, has good intake and output, IV fluids areinfusing, and is resting in bed. documented in this encounter Plan of Treatment Not on file documented as of this encounter Procedures Procedure Name Priority Date/Time Associated Diagnosis Comments POCT HCG, URINE Routine 11/26/2018 1:00 PM CDT EGFR Routine 11/26/2018 3:06 AM CDT DIFFERENTIAL AUTO Routine 11/26/2018 3:0 6 AM CDT CBC WITH AUTO DIFFERENTIAL Routine 11/26/2018 3:06 AM CDT COMPREHENSIVE METABOLIC PANEL Routine 11/26/2018 3:[address] ABDOMEN PELVIS W CONTRAST ED 11/25/2018 10:54 AM CDT URINALYSIS AND REFLEX TO MICROSCOPIC AND CULTURE STAT 11/25/2018 10:36 AM CDT URINALYSIS, MICROSCOPIC ONLY STAT 11/25/2018 10:36 AM CDT MAGNESIUM Add-On 11/25/2018 10:28 AM CDT LIPASE Add-On 11/25/2018 10:28 AM CDT GAMMA GT Add-On 11/25/2018 10:28 AM CDT ECG 12-LEAD STAT 11/25/2018 10:03 AM CDT SEPSIS LACTATE WITH REFLEX STAT 11/25/2018 9:38 AM CDT EGFR STAT 11/25/2018 9:38 AM CDT DIFFERENTIAL AUTO STAT 11/25/2018 9:3 8 AM CDT CBC WITH AUTO DIFFERENTIAL STAT 11/25/2018 9:38 AM CDT PROTIME-INR STAT 11/25/2018 9:38 AM CDT TROPONIN T STAT 11/25/2018 9:38 AM CDT BILIRUBIN, DIRECT Routine 11/25/2018 9:3 8 AM CDT COMPREHENSIVE METABOLIC PANEL STAT 11/25/2018 9:38 AM CDT LAPAROSCOPIC CHOLECYSTECTOMY CHOLECYSTITIS documented in this encounter Results * POCT hCG, urine (11/26/2018 1:00 PM CDT) HCG, ur, POC Negative Lot Number [id number] QC Backgroud Clear Acceptable QC Control Line Acceptable Urine 11/26/2018 1:00 PM CDT Refugio Zuñiga MD PhD POINT OF CARE TEST CALEB RABTONIE Final Result * eGFR (11/26/2018 3:06 AM CDT) eGFR 114 mL/min/1.7 3 m2 [facility] (STEPHANIE) Comment: Interpretive Data Reference Interval Normal ?>/= 90 mL/min/1.73m2 Mildly decreased* ? 60 - 89 mL/min/1.73m2 Mildly to moderately decreased ?45 - 59 mL/min/1.73m2 Moderately to severely decreased ??30 - 44 mL/min/1.73m2 Severely decreased ?15 - 29 mL/min/1.73m2 Kidney Failure ?< 15 ??mL/min/1.73m2 *Relative to young adult level If -Australian multiply value by 1.16. Estimated glomerular filtration rate is determined by the CKD-EPI equation recommended by the National Kidney Foundation (KDIGO 2012 Clinical Practice Guideline for the Evaluation and Management of Chronic Kidney Disease. Kidney Intnl Suppl Jul 2012;3:1). The CKD-EPI equation should not be used for patients with unstable renal function and has not been validated in children and those over 70. Current interpretive data was last reviewed 2016. Blood specimen (specimen) 11/26/2018 3:06 AM CDT 11/26/2018 3:16 AM CDT Narrative [facility] (STEPHANIE) - 11/26/2018 3:43 AM CDT us Nicole Rivera MD LAB BLOOD ORDERABLES Anusha medina Result [facility] (CABLE) [facility] Department [place] [address] * Differential, auto (11/26/2018 3:06 AM CDT) Neutrophil abs 3.6 1.7 - 6.5 K/cumm [facility] (CABLE) Imm gran abs 0.0 0.0 - 0.1 K/cumm [facility] (CABLE) Lymphocyte abs 1.2 0.8 - 3.3 K/cumm [facility] (CABLE) Monocyte abs 0.4 0.2 - 0.8 K/cumm [facility] (CABLE) Eosinophil abs 0.1 0.0 - 0.5 K/cumm [facility] ([facility]) Basophil abs 0.0 0.0 - 0.1 K/cumm [facility] ([facility]) Neutrophil pct 66.7 % [facility] ([facility]) Comment: Interpretive Data Percent cell count reference ranges are not reported, since discordance with absolute values may lead to misinterpretation of CBC data. Current Interpretive Data was last revised on 2017. Imm gran pct 0.2 % [facility] (CABLE) Comment: Interpretive Data Percent cell count reference ranges are not reported, since discordance with absolute values may lead to misinterpretation of CBC data. Current Interpretive Data was last revised on 2017. Lymphocyte pct 22.6 % [facility] (C[facility]) Comment: Interpretive Data Percent cell count reference ranges are not reported, since discordance with absolute values may lead to misinterpretation of CBC data. Current Interpretive Data was last revised on 2017. Monocyte pct 8.0 % [facility] (C[facility]) Comment: Interpretive Data Percent cell count reference ranges are not reported, since discordance with absolute values may lead to misinterpretation of CBC data. Current Interpretive Data was last revised on 2017. Eosinophil pct 1.9 % [facility] (C[facility]) Comment: Interpretive Data Percent cell count reference ranges are not reported, since discordance with absolute values may lead to misinterpretation of CBC data. Current Interpretive Data was last revised on 2017. Basophil pct 0.6 % [facility] ([place]) Comment: Interpretive Data Percent cell count reference ranges are not reported, since discordance with absolute values may lead to misinterpretation of CBC data. Current Interpretive Data was last revised on 2017. Blood specimen (specimen) 11/26/2018 3:06 AM CDT 11/26/2018 3:15 AM CDT Narrative [facility] ([place]) - 11/26/2018 3:19 AM CDT us Josué Strange MD LAB BLOOD ORDERABLES Final Resul t [facility] ([place]) 1 [facility] Department [place] [address] * (ABNORMAL) CBC with auto differential (11/26/2018 3:06 AM CDT) WBC 5.4 3.8 - 9.9 K/cumm [facility] ([place]) Hgb 11.4(L) 11.9 - 15.5 g/dL [facility] ([place]) Hct 32.7(L) 35.6 - 45.5 % [facility] ([place]) Plt 184 150 - 400 K/cumm [facility] ([place]) MPV 10.9 9.1 - 12.3 fL [facility] ([place]) RBC 3.38(L) 3.90 - 5.20 M/cumm [facility] ([place]) MCV 96.7(H) 81.3 - 96.4 fL [facility] ([place]) MCH 33.7(H) 27.1 - 33.3 pg [facility] ([place]) MCHC 34.9 32.3 - 35.7 g/dL [facility] ([place]) RDW CV 13.0 11.1 - 14.9 % [facility] ([place]) RDW SD 46.5 35.7 - 48.1 fL [facility] ([place]) NRBC abs 0.00 0.00 - 0.01 K/cumm [facility] ([place]) Blood specimen (specimen) 11/26/2018 3:06 AM CDT 11/26/2018 3:15 AM CDT Narrative [facility] ([place]IE) - 11/26/2018 3:19 AM CDT Josué Strange MD LAB BLOOD ORDERABLES Final Resul t [facility] ([place]IE) 1 [facility] Department [place] [address] * (ABNORMAL) Comprehensive metabolic panel (11/26/2018 3:06 AM CDT) Sodium 141 135 - 145 mmol/L [facility] ([facility]) Potassium, pl 3.8 3.3 - 4.9 mmol/L [facility] ([place]) Chloride 108 97 - 110 mmol/L [facility] CO2 23 22 - 32 mmol/L [facility] ([place]) Anion gap 10 2 - 15 mmol/L [facility] BUN 5(L) 8 - 25 mg/dL [facility] Creatinine 0.56(L) 0.60 - 1.10 mg/dL [facility] Glucose 97 70 - 199 mg/dL [facility] ([facility] Comment: Interpretive Data Fasting glucose >/= 126 mg/dl is diagnostic for diabetes. ?? Fasting is defined as no caloric intake for at least 8 hours. Fasting glucose between 100 mg/dl to 125 mg/dl is diagnostic of prediabetes. In a patient with classic symptoms of hyperglycemia or hyperglycemic crisis, a random glucose >/= 200 mg/dl is diagnostic for diabetes. In the absence of unequivocal hyperglycemia, results should be confirmed by repeat testing. The classification and Diagnosis of Diabetes Diabetes Care 2017;40 (Suppl. 1):S11. Current interpretive data was last revised 2017. Calcium 8.8 8.5 - 10.3 mg/dL [facility] ([place]) Bilirubin, total 0.9 0.1 - 1.2 mg/dL [facility] ([place]) Protein, pl 5.9(L) 6.5 - 8.5 g/dL [facility] ([place]) Albumin 3.3(L) 3.5 - 5.0 g/dL [facility] ([place]) Alk phos 146(H) 40 - 130 Units/L [facility] ([place]) ALT 105(H) 7 - 45 Units/L [facility] ([place]) AST 112(H) 10 - 45 Units/L [facility] ([place]) Blood specimen (specimen) 11/26/2018 3:06 AM CDT 11/26/2018 3:16 AM CDT Narrative [facility] ([place]) - 11/26/2018 3:43 AM CDT us Nicole Rivera MD LAB BLOOD ORDERABLES Anusha l Result [facility] ([place]) 1 [facility] Department [place] [address] * CT Abdomen Pelvis W Contrast (11/25/2018 10:54 AM CDT) Anatomical Region Laterality Modality Body N/A Computed Tomogra phy 11/25/2018 10:5 6 AM CDT Impressions 11/25/2018 11:05 AM CDT 1. ??Distended gallbladder with tiny calculi, minimal wall thickening and trace pericholecystic fluid; suggestive of acute cholecystitis. 2. ??4 mm parenchymal calcification upper pole of left kidney. 3. ??1.8 cm left ovarian cyst. 4. ??Dislodged right tubal ligation band. Electronically signed by: Albert Vance Jr., M.D. Narrative 11/25/2018 11:[address] ABDOMEN PELVIS W CONTRAST HISTORY: Severe epigastric pain.. COMPARISON: None TECHNIQUE: 100 mL Optiray 320 IV. ??Spiral axial scans from lung bases to ischial tuberosities. ??Coronal and sagittal reformatted images. FINDINGS: Partially visualized lung bases are clear. Liver is normal. A few tiny dense calculi layer posteriorly near the neck of the distended gallbladder that measures approximate 4.5 cm diameter with minimal wall thickening and trace amount of pericholecystic fluid. Bile ducts are not dilated. Pancreas, spleen and adrenal glands appear normal. 4 mm parenchymal calcification is seen at upper pole of left kidney. Kidneys, ureters and urinary bladder otherwise appear normal. Uterus and right ovary appear normal. ??1.8 cm cyst is present in the left ovary. ??Left tubal ligation band is in expected location. ??The other tubal ligation band is located between the left anterior margin of lower uterine segment and urinary bladder rather than at junction of right fallopian tube and uterus. Appendix is normal. Stool quantity is normal. ??No dilated or thickened loops of colon or small bowel are seen. ??Stomach appears normal. Abdominal aorta and inferior vena cava appear normal. No lymphadenopathy or ascites is seen. ??No other abnormal abdominal mass or fluid collection is seen. Abdominal and pelvic wall structures appear intact. Visualized bony structures are unremarkable. Procedure Note Albert Vance Jr., MD - 11/25/2018 CT ABDOMEN PELVIS W CONTRAST HISTORY: Severe epigastric pain.. COMPARISON: None TECHNIQUE: 100 mL Optiray 320 IV. Spiral axial scans from lung bases to ischial tuberosities. Coronal and sagittal reformatted images. FINDINGS: Partially visualized lung bases are clear. Liver is normal. A few tiny dense calculi layer posteriorly near the neck of the distended gallbladder that measures approximate 4.5 cm diameter with minimal wall thickening and trace amount of pericholecystic fluid. Bile ducts are not dilated. Pancreas, spleen and adrenal glands appear normal. 4 mm parenchymal calcification is seen at upper pole of left kidney. Kidneys, ureters and urinary bladder otherwise appear normal. Uterus and right ovary appear normal. 1.8 cm cyst is present in the left ovary. Left tubal ligation band is in expected location. The other tubal ligation band is located between the left anterior margin of lower uterine segment and urinary bladder rather than at junction of right fallopian tube and uterus. Appendix is normal. Stool quantity is normal. No dilated or thickened loops of colon or small bowel are seen. Stomach appears normal. Abdominal aorta and inferior vena cava appear normal. No lymphadenopathy or ascites is seen. No other abnormal abdominal mass or fluid collection is seen. Abdominal and pelvic wall structures appear intact. Visualized bony structures are unremarkable. IMPRESSION: 1. Distended gallbladder with tiny calculi, minimal wall thickening and trace pericholecystic fluid; suggestive of acute cholecystitis. 2. 4 mm parenchymal calcification upper pole of left kidney. 3. 1.8 cm left ovarian cyst. 4. Dislodged right tubal ligation band. Electronically signed by: Albert Vance Jr., M.D. Nicole Rivera MD IMG CT PROCEDURES Final R esult * (ABNORMAL) Urinalysis, microscopic only (11/25/2018 10:36 AM CDT) WBC, ur 0-5 0 - 5 /HPF [facility] ([place]) RBC, ur 6-10(A) 0 - 2 /HPF [facility] ([place]) Epithelial cells, squamous, ur 6-10(A) 0 - 5 /HPF [facility] ([place]) Comment:Suggestive of contam ination. Consider recollection by clean catch. Bacteria, ur Negative [facility] ([place]) Hyaline casts, ur 1-5 0 - 10 /LPF [facility] ([place]) Urine 11/25/2018 10:3 6 AM CDT 11/25/2018 10:40 AM CDT Narrative [facility] ([place]) - 11/25/2018 11:20 AM CDT Nicole Rivera MD LAB URINE ORDERABLES Anusha adam Result [facility] ([place]) 1 [facility] Department [place] [address] * (ABNORMAL) Urinalysis reflex to microscopic and culture Urine (11/25/2018 10:36 AM CDT) Color, ur Yellow Yellow [facility] ([place]) Clarity, ur Cloudy(A) Clear [facility] ([place]) Specific gravity, ur 1.007(L) 1.010 - 1.025 [facility] ([place]) pH, urine 6.0 [facility] ([place]) Protein, ur ql Negative Negative [facility] ([place]) Glucose, ur ql Negative Negative [facility] ([place]) Ketones, ur Negative Negative [facility] ([place]IE) Bilirubin, ur Negative Negative [facility] ([place]) Blood, ur 3+(A) Negative [facility] ([place]) Urobilinogen, ur 0.2 mg/dL [facility] ([place]) Nitrite, ur Negative Negative [facility] (CABLE) Leukocyte esterase, ur Negative Negative [facility] ([place]) Urine 11/25/2018 10:3 6 AM CDT 11/25/2018 10:40 AM CDT Narrative [facility] (STE[place]ANIE) - 11/25/2018 11:20 AM CDT ?? Urine pH is affected by diet, medications, systemic acid-base disturbances, and renal tubular function. ??pH may affect urinary stone formation. ??For example, urine pH below 6.0 may help reduce the tendency for calcium phosphate stones and pH greater than 6.0 may reduce the tendency for uric acid stone formation. Source: [facility] [employer]. Last revised 07-30-2017 Nicole Rivera MD LAB MICROBIOLOGY - GENERA L ORDERABLES Final Result Performing Organization Address City/[facility]/ZIP Co de Phone Number [facility] (CABLE) 1 [facility] [place] [address] * Lipase (11/25/2018 10:28 AM CDT) Lipase 13 10 - 99 Units/L [facility] (CABLE) Blood specimen (specimen) 11/25/2018 10:28 AM CDT 11/25/2018 2:05 PM CDT Narrative [facility] (STE[place]ANIE) - 11/25/2018 2:46 PM CDT Nicole Rivera MD LAB BLOOD ORDERABLES Anusha l Result [facility] (CABLE) 1 [facility] [place] [address] * Magnesium (11/25/2018 10:28 AM CDT) Magnesium 1.7 1.6 - 2.4 mg/dL [facility] (CABLE) Blood specimen (specimen) 11/25/2018 10:28 AM CDT 11/25/2018 2:05 PM CDT Narrative [facility] (STE[place]ANIE) - 11/25/2018 2:20 PM CDT Nicole Rivera MD LAB BLOOD ORDERABLES Anusha l Result [facility] ALANIZ) 1 [facility] [place] [address] * (ABNORMAL) Gamma GT (11/25/2018 10:28 AM CDT) GGT 108(H) 10 - 40 Units/L [facility] (STEPHANIE) Blood specimen (specimen) 11/25/2018 10:28 AM CDT 11/25/2018 2:05 PM CDT Narrative [facility] (STE[place]ANIE) - 11/25/2018 2:36 PM CDT Nicole Rivera MD LAB BLOOD ORDERABLES Anusha l Result [facility] (CABLE) [address] [place] [address] [place] [address] * ECG 12 lead (11/25/2018 10:03 AM CDT) 11/25/2018 10:0 3 AM CDT Narrative [facility] - 11/25/2018 3:24 PM CDT Vent Rate: 61 bpm RR Interval: 971 msec [place] Interval: 138 msec QRS Duration: 85 msec QT Interval: 432 msec QTC Interval: 436 msec P-R-T [place]: -24 - 38 - 16 degrees SINUS RHYTHM NORMAL ECG Compared to 07/04/2018 no change Electronically Signed By: Dr Serafin Quiles Nicole Rivera MD ECG ORDERABLES Final Res ult [facility] [place] [facility] * eGFR (11/25/2018 9:38 AM CDT) eGFR 119 mL/min/1.7 3 m2 [facility] (CABLE) Comment: Interpretive Data Reference Interval Normal ?>/= 90 mL/min/1.73m2 Mildly decreased* ? 60 - 89 mL/min/1.73m2 Mildly to moderately decreased ?45 - 59 mL/min/1.73m2 Moderately to severely decreased ??30 - 44 mL/min/1.73m2 Severely decreased ?15 - 29 mL/min/1.73m2 Kidney Failure ?< 15 ??mL/min/1.73m2 *Relative to young adult level If -Australian multiply value by 1.16. Estimated glomerular filtration rate is determined by the CKD-EPI equation recommended by the National Kidney Foundation (KDIGO 2012 Clinical Practice Guideline for the Evaluation and Management of Chronic Kidney Disease. Kidney Intnl Suppl Jul 2012;3:1). The CKD-EPI equation should not be used for patients with unstable renal function and has not been validated in children and those over 70. Current interpretive data was last reviewed 2016. Blood specimen (specimen) 11/25/2018 9:38 AM CDT 11/25/2018 9:40 AM CDT Narrative [facility] (STEPHANIE) - 11/25/2018 10:01 AM CDT us Nicole Rivera MD LAB BLOOD ORDERABLES Anusha medina Result [facility] (CABLE) 1 [facility] Department of Laboratories [place], [place] [id number] * Differential, auto (11/25/2018 9:38 AM CDT) Neutrophil abs 4.7 1.7 - 6.5 K/cumm [facility] (CABLE) Imm gran abs 0.0 0.0 - 0.1 K/cumm [facility] ([place]) Lymphocyte abs 1.0 0.8 - 3.3 K/cumm [facility] ([place]) Monocyte abs 0.5 0.2 - 0.8 K/cumm [facility] ([place]) Eosinophil abs 0.1 0.0 - 0.5 K/cumm [facility] ([place]) Basophil abs 0.0 0.0 - 0.1 K/cumm [facility] ([place]) Neutrophil pct 74.4 % [facility] ([place]) Comment: Interpretive Data Percent cell count reference ranges are not reported, since discordance with absolute values may lead to misinterpretation of CBC data. Current Interpretive Data was last revised on 2017. Imm gran pct 0.3 % [facility] ([place]) Comment: Interpretive Data Percent cell count reference ranges are not reported, since discordance with absolute values may lead to misinterpretation of CBC data. Current Interpretive Data was last revised on 2017. Lymphocyte pct 16.5 % [facility] ([place]) Comment: Interpretive Data Percent cell count reference ranges are not reported, since discordance with absolute values may lead to misinterpretation of CBC data. Current Interpretive Data was last revised on 2017. Monocyte pct 7.3 % [facility] ([place]) Comment: Interpretive Data Percent cell count reference ranges are not reported, since discordance with absolute values may lead to misinterpretation of CBC data. Current Interpretive Data was last revised on 2017. Eosinophil pct 1.0 % [facility] ([place]) Comment: Interpretive Data Percent cell count reference ranges are not reported, since discordance with absolute values may lead to misinterpretation of CBC data. Current Interpretive Data was last revised on 2017. Basophil pct 0.5 % [facility] ([place]) Comment: Interpretive Data Percent cell count reference ranges are not reported, since discordance with absolute values may lead to misinterpretation of CBC data. Current Interpretive Data was last revised on 2017. Blood specimen (specimen) 11/25/2018 9:38 AM CDT 11/25/2018 9:40 AM CDT Narrative [facility] ([place]) - 11/25/2018 9:42 AM CDT Nicole Rivera MD LAB BLOOD ORDERABLES Anusha l Result Performing Organization Address City/[facility]/ZIP Co de Phone Number [facility] ATKINSONN) 1 [facility] [place] [address] * (ABNORMAL) Bilirubin, direct (11/25/2018 9:38 AM CDT) Bilirubin, direct 0.5(H) 0.1 - 0.3 mg/dL [facility] (CABLE) Blood specimen (specimen) 11/25/2018 9:38 AM CDT 11/25/2018 9:40 AM CDT Narrative [facility] (CABLE) - 11/25/2018 10:01 AM CDT Nicole Rivera MD LAB BLOOD ORDERABLES Anusha l Result Performing Organization Address [facility] Co de Phone Number [facility] (CABLE) 1 [facility] [place] [address] * Troponin T (11/25/2018 9:38 AM CDT) Troponin T <0.01 0.00 - 0.01 ng/mL [facility] (CABLE) Comment: Interpretive Data Reference ranges for children <18 years of age have not been established. - > or = 18 years: Serial determinations are recommended for the diagnosis of myocardial infarction. ??Temporal rise and fall are consistent with myocardial infarction when at least one value is above the 99th percentile upper reference limit for troponin assay. ??Journal of the [place] College of [employer]iology 2012;60:1581-98. Current Interpretive Data Last Revised Date: 2018. Blood specimen (specimen) 11/25/2018 9:38 AM CDT 11/25/2018 9:40 AM CDT Narrative [facility] (CABLE) - 11/25/2018 10:06 AM CDT Nicole Rivera MD LAB BLOOD ORDERABLES Anusha l Result Performing Organization Address City/[facility]/ZIP Co de Phone Number [facility] (CABLE) 1 [facility] [place] [address] * Protime-INR (11/25/2018 9:38 AM CDT) PT 12.4 9.5 - 13.0 sec [facility] (CABLE) INR 1.10 0.90 - 1.20 [facility] (CABLE) Comment: Interpretive Data Recommended ranges for Protime INR: 2.0 - 3.0 Most indications for Warfarin therapy (e.g. Treatment of DVT, PE, bioprosthetic valve replacement, prophylaxis venous thrombosis, atrial fibrillation). 2.5 - 3.5 Mechanical mitral valve or dual mechanical mitral and Aortic valve replacement. Current Interpretive Data was last revised on 2015. Blood specimen (specimen) 11/25/2018 9:38 AM CDT 11/25/2018 9:40 AM CDT Narrative [facility] (CABLE) - 11/25/2018 9:50 AM CDT Nicole Rivera MD LAB BLOOD ORDERABLES Anusha l Result Performing Organization Address [facility] Co de Phone Number [facility] (CABLE) [address] [place] [address] [place] [address] * Sepsis Lactate w/ Reflex (11/25/2018 9:38 AM CDT) Pathologist [facility] Sepsis Lactate 1.3 0.7 - 2.0 mmol/L [facility] (CABLE) Blood specimen (specimen) 11/25/2018 9:38 AM CDT 11/25/2018 9:40 AM CDT Narrative [facility]CABLE[facility] - 11/25/2018 9:43 AM CDT Nicole Rivera MD LAB BLOOD ORDERABLES Anusha l Result Performing Organization Address City/[facility]/ZIP Co de Phone Number [facility] (CABLE) 1 [facility] [place] [address] * (ABNORMAL) CBC with auto differential (11/25/2018 9:38 AM CDT) Pathologist [facility] WBC 6.3 3.8 - 9.9 K/cumm [facility] ([facility]) Hgb 12.2 11.9 - 15.5 g/dL [facility] ([facility] Hct 35.3(L) 35.6 - 45.5 % [facility] ([facility]) Plt 209 150 - 400 K/cumm [facility] ([facility]) MPV 10.8 9.1 - 12.3 fL [facility] ([facility]) RBC 3.66(L) 3.90 - 5.20 M/cumm [facility] ([facility]) MCV 96.4 81.3 - 96.4 fL [facility] ([facility]) MCH 33.3 27.1 - 33.3 pg [facility] ([facility]) MCHC 34.6 32.3 - 35.7 g/dL [facility] ([facility]) RDW CV 12.9 11.1 - 14.9 % [facility] ([facility] RDW SD 46.0 35.7 - 48.1 fL [facility] ([facility] NRBC abs 0.00 0.00 - 0.01 K/cumm [facility] ([facility] Blood specimen (specimen) 11/25/2018 9:38 AM CDT 11/25/2018 9:40 AM CDT Narrative [facility] ([facility] - 11/25/2018 9:42 AM CDT us Nicole Rivera MD LAB BLOOD ORDERABLES Anusha l Result [facility] ([facility] 1 [facility] Department [place] [address] * (ABNORMAL) Comprehensive metabolic panel (11/25/2018 9:38 AM CDT) Pathologist [facility] Sodium 138 135 - 145 mmol/L [facility] ([facility]) Potassium, pl 3.8 3.3 - 4.9 mmol/L [facility] (STE[place]IE) Chloride 104 97 - 110 mmol/L [facility] ([place]) CO2 24 22 - 32 mmol/L [facility] ([place]) Anion gap 10 2 - 15 mmol/L [facility] ([place]IE) BUN 7(L) 8 - 25 mg/dL [facility] ([place]) Creatinine 0.49(L) 0.60 - 1.10 mg/dL [facility] ([place]) Glucose 102 70 - 199 mg/dL [facility] ([place]) Comment: Interpretive Data Fasting glucose >/= 126 mg/dl is diagnostic for diabetes. ?? Fasting is defined as no caloric intake for at least 8 hours. Fasting glucose between 100 mg/dl to 125 mg/dl is diagnostic of prediabetes. In a patient with classic symptoms of hyperglycemia or hyperglycemic crisis, a random glucose >/= 200 mg/dl is diagnostic for diabetes. In the absence of unequivocal hyperglycemia, results should be confirmed by repeat testing. The classification and Diagnosis of Diabetes Diabetes Care 2017;40 (Suppl. 1):S11. Current interpretive data was last revised 2017. Calcium 9.3 8.5 - 10.3 mg/dL [facility] ([place]) Bilirubin, total 0.8 0.1 - 1.2 mg/dL [facility] ([facility]) Protein, pl 6.6 6.5 - 8.5 g/dL [facility] ([place]) Albumin 3.6 3.5 - 5.0 g/dL [facility] ([place]) Alk phos 138(H) 40 - 130 Units/L [facility] ([place]) ALT 72(H) 7 - 45 Units/L [facility] ([place]IE) AST 146(H) 10 - 45 Units/L [facility] ([place]) Blood specimen (specimen) 11/25/2018 9:38 AM CDT 11/25/2018 9:40 AM CDT Narrative [facility] ([facility]) - 11/25/2018 10:01 AM CDT us Nicole Rivera MD LAB BLOOD ORDERABLES Anusha l Result [facility] ([facility] 1 [facility] Department [place] [address] documented in this encounter Visit Diagnoses Diagnosis Cholecystitis, acute- Primary Acute cholecystitis Cholecystitis, acute Acute cholecystitis Elevated liver function tests Other abnormal blood chemistry Right lower quadrant abdominal pain documented in this encounter Administered Medications Inactive Administered Medications - up to 3 most recent administrations Medication Order MAR Action Action Date Dose Rate Site famotidine (PEPCID) injection 20 mg 20 mg, intravenous, Administer over 2 Minutes, Once, On Dhara 11/25/18 at 1151, For 1 dose Given 11/25/2018 12:21 PM CDT 20 mg famotidine (PEPCID) injection 40 mg 40 mg, intravenous, Administer over 2 Minutes, 2 times daily, First dose on Dhara 11/25/18 at 1800 Given 11/26/2018 7:34 AM CDT 40 mg Given 11/25/2018 6:06 PM CDT 40 mg heparin 5,000 unit/mL injection 5,000 Units 5,000 Units, subcutaneous, Every 8 hours scheduled, First dose on Dhara 11/25/18 at 1400, Indications: Deep Vein Thrombosis PreventionIndications:Deep Vein Thrombosis Prevention ioversol intravenous syringe 100 mL 100 mL, intravenous, Once in imaging, contrast, Starting on Dhara 11/25/18 at 1041, For 1 dose Given 11/25/2018 10:46 AM CDT 100 mL levETIRAcetam (KEPPRA) tablet 1,000 mg 1,000 mg, oral, 2 times daily, First dose on Dhara 11/25/18 at 2115 Given 11/26/2018 7:32 AM CDT 1,000 mg Given 11/25/2018 9:29 PM CDT 1,000 mg morphine injection 2 mg 2 mg, intravenous, Administer over 4 Minutes, Once, On Dhara 11/25/18 at 0918, For 1 dose, Indications: PainIndications:Pain Given 11/25/2018 9:55 AM CDT 2 mg morphine injection 2 mg 2 mg, intravenous, Administer over 4 Minutes, Every 3 hours PRN, 1st line for pain, Starting on Dhara 11/25/18 at 1400 Given 11/26/2018 11:22 AM CDT 2 mg Given 11/26/2018 7:32 AM CDT 2 mg Given 11/26/2018 3:29 AM CDT 2 mg ondansetron (ZOFRAN) injection 4 mg 4 mg, intravenous, Administer over 2 Minutes, Once, On Dhara 11/25/18 at 0918, For 1 dose, Indications: Nausea, VomitingIndications:Nausea,Vomiting Given 11/25/2018 9:53 AM CDT 4 mg ondansetron (ZOFRAN) injection 4 mg 4 mg, intravenous, Administer over 2 Minutes, Every 6 hours PRN, nausea, vomiting, Starting on Dhara 11/25/18 at 1736 Given 11/26/2018 11:22 AM CDT 4 mg Given 11/26/2018 12:11 AM CDT 4 mg piperacillin-tazobactam (ZOSYN) 3.375 g in sodium chloride 0.9% 50 mL IVPB 3.375 g, intravenous, at 130 mL/hr, Administer over 30 Minutes, Every 6 hours scheduled, First dose on Dhara 11/25/18 at 1200, Indications: Abdominal/Pelvic InfectionIndications:Abdominal/Pe lvic Infection New Bag 11/26/2018 11:22 AM CDT 3.375 g 130 mL/hr New Bag 11/26/2018 5:15 AM CDT 3.375 g 130 mL/hr New Bag 11/25/2018 11:57 PM CDT 3.375 g 130 mL/hr sodium chloride 0.9% bolus 1,000 mL 1,000 mL, intravenous, at 1,000 mL/hr, Administer over 1 Hours, Once, On Dhara 11/25/18 at 0918, For 1 dose New Bag 11/25/2018 9:52 AM CDT 1,000 mL 1000 mL/hr sodium chloride 0.9% infusion 100 mL/hr, intravenous, Continuous, Starting on Dhara 11/25/18 at 1445 New Bag 11/26/2018 3:23 AM CDT 100 mL/hr 100 mL/hr New Bag 11/25/2018 3:36 PM CDT 100 mL/hr 100 mL/hr documented in this encounter Discontinued Medications Medication Sig Discontinue Reason Start Date End Da te buPROPion XL (WELLBUTRIN XL) 150 mg 24 hr tablet take 1 tablet by oral route every day Therapy completed 02/14/2015 11/25/2018 cefTRIAXone (ROCEPHIN) 2 gram injection Therapy completed 11/25/2018 clonazePAM (KlonoPIN) 1 mg disintegrating tablet Take 1 mg by mouth 2 (two) times a day. TAKE 1 TAB PO BID PRN SEIZURE CLUSTERS OR PROLONGED SEIZURES (>5MIN) Therapy completed 09/24/2016 11/25/[address] (VOLTAREN) 75 mg EC tablet take 1 tablet by oral route 2 times every day Therapy completed 02/14/2015 11/25/2018 eslicarbazepine (APTIOM) 200 mg tablet take 2 tablet by oral route every day Therapy completed 02/14/2015 11/25/2018 gabapentin (NEURONTIN) 600 mg tablet take 2 tablet by oral route every 2 days Duplicate order 06/04/2016 11/25/2018 HYDROcodone-acetaminophe n (NORCO) 5-325 mg per tablet take 1 - 2 Tablet by ORAL route every 4 - 6 hours as needed for pain Duplicate order 02/14/2015 11/25/2018 lacosamide (VIMPAT) 200 mg tablet take 1 tablet by oral route 2 times every day Therapy completed 02/14/2015 11/25/2018 lamoTRIgine (LaMICtal) 100 mg tabletIndications:Tonic- Clonic Epilepsy Take 3.5 tablets (350 mg total) by mouth 2 (two) times a day. 01/12/2018 11/25/2018 metroNIDAZOLE (FLAGYL) 500 mg tablet take 1 tablet by oral route every 12 hours until gone Therapy completed 06/16/2016 11/25/2018 oxyCODONE-acetaminophen (PERCOCET) 10-325 mg per tabletIndications:Pain Take 1 tablet by mouth every 4 (four) hours as needed. Therapy completed 11/25/[address] (PROTONIX) 40 mg EC tablet take 1 tablet by oral route every day Therapy completed 06/04/2016 11/25/2018 primidone (MYSOLINE) 50 mg tabletIndications:Tonic- Clonic Epilepsy Take 1.5 tablets (75 mg total) by mouth nightly. Therapy completed 01/12/2018 11/25/2018 traZODone (DESYREL) 100 mg tablet take 1 tablet by oral route 2 times every day after meals Therapy completed 02/14/2015 11/25/2018 traZODone (DESYREL) 100 mg tablet take 1 tablet by oral route every day after meals Therapy completed 06/04/2016 11/25/2018 gabapentin (NEURONTIN) 600 mg tablet take 1 tablet by oral route 3 times every day Stop Taking at Discharge 02/14/2015 11/26/[address] (PROTONIX) 40 mg EC tablet take 1 tablet by oral route every day Stop Taking at Discharge 02/14/2015 11/26/2018 HYDROcodone-acetaminophe n (NORCO) 5-325 mg per tablet take 1 Tablet by oral route tid as needed for pain Stop Taking at Discharge 06/04/2016 11/26/2018 ondansetron (ZOFRAN) 4 mg tablet Take 4 mg by mouth every 8 hours as needed Stop Taking at Discharge 08/13/2018 11/26/2018 amoxicillin-clavulanate (AUGMENTIN) 875-125 mg per tablet Take 1 tablet by mouth 2 (two) times a day Stop Taking at Discharge 11/26/2018 documented as of this encounter Historical Medications * This list may reflect changes made after this encounter. amoxicillin-clavu lanate (AUGMENTIN) 875-125 mg per tablet Take 1 tablet by mouth 2 (two) times a day 11/26/2018 ondansetron (ZOFRAN) 4 mg tablet Take 4 mg by mouth every 8 hours as needed 08/13/2018 11/26/2018 added in this encounter Active and Recently Administered Medications Times are shown in CDT. Scheduled Medication Order 11/24/2018 11/25/2018 11/26/2018 famotidine (PEPCID) injection 20 mg (COMPLETED) 20 mg, intravenous, Administer over 2 Minutes, Once, On Dhara 11/25/18 at 1151, For 1 dose 1221 (Given - Provider: Stella Avalos RN) famotidine (PEPCID) injection 40 mg 40 mg, intravenous, Administer over 2 Minutes, 2 times daily, First dose on Dhara 11/25/18 at 1800 1806 (Given - Provider: Erma Mariee RN) 0734 (Given - Provider: Erma Mariee RN)1259 (SEP Hold - Provider: Automatic Transfer Provider - Reason: Patient not available)1514 (SEP Unhold - Provider: Automatic Transfer Provider) heparin 5,000 unit/mL injection 5,000 Units 5,000 Units, subcutaneous, Every 8 hours scheduled, First dose on Dhara 11/25/18 at 1400, Indications: Deep Vein Thrombosis Prevention 1513 (Not Given - Provider: Erma Mariee RN - Reason: Patient/family refused)2155 (Not Given - Provider: Zeus Ontiveros RN - Reason: Patient/family refused) 0514 (Not Given - Provider: Zeus Ontiveros RN - Reason: Other - Comment: Surgery scheduled today)1259 (SEP Hold - Provider: Automatic Transfer Provider - Reason: Patient not available)1400 (Dose Auto Held - Provider: Automatic Transfer Provider)1514 (SEP Unhold - Provider: Automatic Transfer Provider) levETIRAcetam (KEPPRA) tablet 1,000 mg 1,000 mg, oral, 2 times daily, First dose on Dhara 11/25/18 at 2115 2129 (Given - Provider: Anne Watkins RN) 0732 (Given - Provider: Erma Mariee, CHIN)1259 (MAR Hold - Provider: Automatic Transfer Provider - Reason: Patient not available)1514 (SEP Unhold - Provider: Automatic Transfer Provider) morphine injection 2 mg (COMPLETED) 2 mg, intravenous, Administer over 4 Minutes, Once, On Dhara 11/25/18 at 0918, For 1 dose, Indications: Pain 0955 (Given - Provider: Stella Avalos, CHIN) morphine injection 2 mg 2 mg, intravenous, Administer over 4 Minutes, Once, On Hdara 11/25/18 at 1315, For 1 dose 1315 (Due) 1259 (SEP Hold - Provider: Automatic Transfer Provider - Reason: Patient not available)1514 (SEP Unhold - Provider: Automatic Transfer Provider) ondansetron (ZOFRAN) injection 4 mg (COMPLETED) 4 mg, intravenous, Administer over 2 Minutes, Once, On Dhara 11/25/18 at 0918, For 1 dose, Indications: Nausea, Vomiting 0953 (Given - Provider: Stella Avalos, CHIN) piperacillin-tazobactam (ZOSYN) 3.375 g in sodium chloride 0.9% 50 mL IVPB 3.375 g, intravenous, at 130 mL/hr, Administer over 30 Minutes, Every 6 hours scheduled, First dose on Dhara 11/25/18 at 1200, Indications: Abdominal/Pelvic Infection 1200 (Not Given - Provider: Stella Avalos RN - Reason: Order Discontinued)1806 (New Bag - Provider: Erma Mariee RN)2357 (New Bag - Provider: Zeus Ontiveros RN) 0515 (New Bag - Provider: Zeus Ontiveros RN)1122 (New Bag - Provider: Erma Mariee, CHIN)1259 (SEP Hold - Provider: Automatic Transfer Provider - Reason: Patient not available)1514 ([facility] Unhold - Provider: Automatic Transfer Provider) sodium chloride 0.9% bolus 1,000 mL (COMPLETED) 1,000 mL, intravenous, at 1,000 mL/hr, Administer over 1 Hours, Once, On Dhara 11/25/18 at 0918, For 1 dose 0952 (New Bag - Provider: Stella Avalos RN)1219 (Stopped - Provider: Stella Avalos RN) Continuous Medication Order 11/24/2018 11/25/2018 11/26/2018 sodium chloride 0.9% infusion 100 mL/hr, intravenous, Continuous, Starting on Dhara 11/25/18 at 1445 1536 (New Bag - Provider: Erma Mariee RN) 0323 (New Bag - Provider: Zeus Ontiveros RN) PRN Medication Order 11/24/2018 11/25/2018 11/26/2018 ioversol intravenous syringe 100 mL (COMPLETED) 100 mL, intravenous, Once in imaging, contrast, Starting on Dhara 11/25/18 at 1041, For 1 dose 1046 (Given - Provider: Winsome Gutiérrez, R-RT) morphine injection 2 mg 2 mg, intravenous, Administer over 4 Minutes, Every 3 hours PRN, 1st line for pain, Starting on Dhara 11/25/18 at 1400 1322 (Given - Provider: Stella Avalos RN)1720 (Given - Provider: Erma Mariee, CHIN)2026 (Given - Provider: Zeus Ontiveros RN) 0002 (Given - Provider: Zeus Ontiveros RN)0329 (Given - Provider: Zeus Ontiveros RN)0732 (Given - Provider: Erma Mariee RN)1122 (Given - Provider: Erma Mariee RN)1259 ([facility] Hold - Provider: Automatic Transfer Provider - Reason: Patient not available)1514 ([facility] Unhold - Provider: Automatic Transfer Provider) ondansetron (ZOFRAN) injection 4 mg 4 mg, intravenous, Administer over 2 Minutes, Every 6 hours PRN, nausea, vomiting, Starting on Dhara 11/25/18 at 1736 0011 (Given - Provid er: Zeus Ontiveros RN)1122 (Given - Provider: Erma Mariee, CHIN)1259 (MAR Hold - Provider: Automatic Transfer Provider - Reason: Patient not available)1514 (MAR Unhold - Provider: Automatic Transfer Provider) documented in this encounter Orders Medications Ordered That Mauri ht Not Have Been Administered Count Last Ordered Date First Ordered Date lidocaine (LTA) 4 % laryngot gal solution 4 mL 1 11/26/2018 heparin 5,000 unit/mL inject ion 5,000 Units 1 11/25/2018 morphine injection 2 mg 1 11/25/2018 piperacillin-tazobactam (ZOS YN) 3.375 g in sodium chloride 0.9% 50 mL IVPB 1 11/25/2018 Nursing Count Last Ordered Date First Orde red Date WEIGH PATIENT 1 11/25/2018 Admission Count Last Ordered Date First Orde red Date ASSIGN PATIENT STATUS 1 11/25/2018 CORE MEASURES Count Last Ordered Date First Ord ered Date REASON FOR NO VTE PROPHYLAXIS AT ADMISSION 1 11/25/2018 ADT Patient Update Count Last Ordered Date Firs t Ordered Date ED IP DECISION TO ADMIT 1 11/25/2018 documented in this encounter Care Teams Tumbler Machine Operator Helper Relationship Specialty Start Date End Date Sg Richards MD PCP - General 10/17/16 07/04/21 documented as of this encounter
--- OUTSIDE RECORDS SUMMARY | 2024-07-16 12:54 | XMS_ITS | Encounter Summary ---
Author Organization [facility] Address [address] [place] [address] Care Team Providers Care Hydroelectric Plant Electrician Name Role Phone Sg Richards MD Primary Care Provider + Encounter Details Date Type Department Care Team (Late st Contact Info) Description 10/30/2016 7:50 PM CDT - 10/30/2016 11:59 PM CDT Emergency [facility] Emergency Department [address] [place] [address] Discharge Disposition: Discharge to home or self [...] on filedocumented in this encounter Care Teams Hydroelectric Plant Electrician Relationship Specialty Start Date End Date Sg Richards MD PCP - General 10/17/16 07/04/21 documented as of this encounter
--- OUTSIDE RECORDS SUMMARY | 2024-07-16 12:54 | XMS_ITS | Encounter Summary ---
Author Organization [facility] Facility Care Team Providers Care Dot Compliance Manager Name Role Phone Sg Richards MD Primary Care Provider + Encounter Details Date Type Department Care Team (Late st Contact Info) Description 05/27/2016 9:00 AM WIRELINE SUPERVISOR - 05/27/2016 11:59 PM [facility] Hospital Encounter [facility] Augustine, Jerry Solis MD PhD [address] [place] [phone] Convulsions (CMS/HCC) Social History Tobacco Use Types [...] 02/14/2015 11/25/2018 lamoTRIgine (LaMICtal) 100 mg tablet Take 350 [...] 02/14/2015 11/25/2018 traZODone (DESYREL) 100 mg tablet 05/26/2016 09/29/2022 documented as of this encounter Plan of Treatment Not on file documented as of this encounter Visit Diagnoses Diagnosis Convulsions (HCC) Other convulsions documented in this encounter Care Teams Dot Compliance Manager Relationship Specialty Start Date End Date Sg Richards MD PCP - General 02/14/15 07/15/16 documented as of this encounter
--- OUTSIDE RECORDS SUMMARY | 2024-07-16 12:54 | XMS_ITS | Encounter Summary ---
Author Organization [facility] Healthcare Address [address] [place] [address] Care Team Providers Care Fur Mixer Operator Name Role Phone Sg Richards MD Primary Care Provider + Reason for Visit * Reason Comments Chest Pain Encounter Details Date Type Department Care Team ([facility] st Contact Info) Description 07/04/2018 8:12 PM [facility] - 07/04/2018 11:28 PM [facility] Emergency [facility] Emergency Department [address] [place] [address] Enid Landis MD [address] [place] [address] Chest wall pain (Primary Dx); Chest mass Discharge Disposition: Discharge to home or self [...] Sign Reading Time Taken Comments Blood Pressure 122/69 07/04/2018 8:20 PM [facility] Pulse 72 07/04/2018 8:20 PM [facility] Temperature 36.6 ??C (97.8 ??F) 07/04/2018 8:20 PM CS T Respiratory Rate 16 07/04/2018 8:20 PM [facility] Oxygen Saturation 98% 07/04/2018 8:20 PM [facility] Inhaled Oxygen Concentration - - Weight 83.5 kg (184 lb) 07/04/2018 8:20 PM [facility] Height 162.6 cm (5' 4 ) 07/04/2018 8:20 PM [facility] Body Mass Index 31.58 07/04/2018 8:20 PM [facility] documented in this encounter Discharge Instructions * Discharge Instructions* Enid Landis MD - 07/04/2018 11:10 PM [facility] Continue medications as previously prescribed. See Dr. Richards this week for further evaluationof small chest mass seen on CT. Continue to use the PICC line for IV infusions. [facility] * Attachments The following attachments cannot be sent through Care Everywhere. * Soft Tissue Chest Tumor (AfterCare(R) Instructions(ER/ED)) (Burmese) * Chest Wall Pain, Costochondritis (Burmese) documented in this encounter Medications at Time [...] documented in this encounter ED Notes * Va Franklin RN - 07/04/2018 9:05 PM CST Pt presents to ED with , tearful because of L sided chest pain from axilla to medial aspect of L breast. PICC line in left upper arm noted. Reports pain began suddenly at 1700. Received IV rocephin infusion at 1800 without complication. + blood return. IV flushes without complication for this RN. No redness or surrounding edema noted. [facility] * Enid Landis MD - 07/04/2018 8:32 PM CSTAssociated Order(s): ECG 12-LEAD HPI Chief Complaint Patient presents with ??? Chest Pain (8:25 PM 07/04/2018): Kayla Avila is a 43 y/o female with a history of HTN and seizure disorder presenting to the ED complaining of chest pain that starts at left axilla and radiates to the center of her chest and began at 1700 tonight. Notes pain is worsened with movement of left arm or withdeep inspiration. Pt has been taking Percocet at home for pain, last dose was at 1900 tonight. She endorses tingling paresthesia to left arm and chills. Denies abdominal pain or leg swelling. 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 She has a PICC line installed in her left arm for Rocephin, last dose given 1800. Patient History Patient Active Problem List Diagnosis [...] Review of Systems Review of Systems Constitutional: Positive for chills. Negative for fever. HENT: Negative for congestion and sore throat. Eyes: Negative for pain and visual disturbance. Respiratory: Negative for cough, shortness of breath and wheezing. Cardiovascular: Positive for chest pain. Negative for palpitations and leg swelling. Gastrointestinal: Negative for abdominal pain, diarrhea, nausea and vomiting. Genitourinary: Negative for difficulty urinating, dysuria and frequency. Neurological: Negative for weakness and headaches. Tingling paresthesia All other systems reviewed and are negative. Physical Exam ED Triage Vitals [07/04/18 2020] Temp Pulse Resp BP SpO2 36.6 ??C (97.8 ??F) 72 16 122/69 98 % Temp src Heart Rate Source Patient Position BP Location FiO2 (%) Temporal -- -- -- -- Physical Exam Constitutional: She is oriented to person, place, and time. She appears well- developed and well-nourished. Patient is awake, alert, and tearful; clutching her left chest and breast with right hand complaining of pain HENT: Head: Normocephalic. Nose: Nose normal. Mouth/Throat: Oropharynx is clear and moist. Eyes: Pupils are equal, round, and reactive to light. Conjunctivae and EOM are normal. Neck: Normal range of motion. Neck supple. Cardiovascular: Normal rate, regular rhythm and normal heart sounds. PICC line in left arm Palpable radial pulse in left wrist Pulmonary/Chest: Effort normal and breath sounds normal. She exhibits tenderness (L upper chest, noerythema or swelling). Abdominal: Soft. Bowel sounds are normal. Musculoskeletal: Normal range of motion. She exhibits no edema. Left arm nonerythematous, nonedematous No peripheral edema Neurological: She is alert and oriented to person, place, and time. Left hand neurovascularly intact, good forging engineer strength noted Skin: Skin is warm and dry. Psychiatric: She has a normal mood and affect. Nursing note and vitals reviewed. [facility] Vitals: 07/04/182019 BP: 122/69 Pulse: 72 Resp: 16 Temp: 36.6 ??C (97.8 ??F) TempSrc: Temporal SpO2: 98% Weight: 83.5 kg (184 lb) Height: 162.6 cm (5' 4 ) Labs Reviewed CBC WITH AUTO DIFFERENTIAL - Abnormal Result Value WBC 5.6 Hgb 12.1 Hct 35.5 (*) Plt 179 MPV 11.5 RBC 3.62 (*) MCV 98.1 (*) MCH 33.4 (*) MCHC 34.1 RDW CV 12.5 RDW SD 45.1 NRBC Abs 0.00 Narrative: COMPREHENSIVE METABOLIC PANEL - Abnormal Sodium 135 Potassium, pl 4.0 Chloride 101 CO2 24 Anion Gap 10 BUN 6 (*) Creatinine 0.75 Glucose 111 Calcium 8.9 Bilirubin, total <0.2 Protein, pl 6.5 Albumin 3.6 Alk phos 76 ALT 18 AST 27 Narrative: PROTIME-INR - Abnormal PT 13.8 (*) INR 1.22 (*) Narrative: D-DIMER, QUANTITATIVE - Abnormal D-dimer 273 (*) Narrative: APTT aPTT 34.1 Narrative: DIFFERENTIAL AUTO Neutrophil absolute 3.0 Immature granulocyte absolute 0.0 Lymphocytes absolute 1.8 Monocyte absolute 0.6 Eosinophils absolute 0.1 Basophils, abs 0.0 Neutrophils 54.1 Immature granulocytes 0.2 Lymphocytes 32.6 Monocytes 10.3 Eosinophils 2.3 Basophils 0.5 Narrative: EGFR GFR 98 Narrative: CT Chest PE W Contrast Final Result 1. NO EVIDENCE OF PULMONARY EMBOLISM. 2. OVOID LOW-ATTENUATION SOFT TISSUE MASS WITHIN THE RIGHT EPICARDIAL FAT MASS MEASURING 2.1 X 1.4 X 2.3 CM . PET SCAN RECOMMENDED TO FURTHER CHARACTERIZE. 3. NONSPECIFIC 8 MM NODULE RIGHT LOBE OF THYROID GLAND. RECOMMEND THYROID ULTRASOUND FOR FURTHER EVALUATION. Electronically signed by: Juan Frost M.D. XR Chest Pa Lateral 2 Vw ED Interpretation Nothing acute Final Result NO ACTIVE DISEASE WITH LEFT ARM PICC LINE.. Electronically signed by: Juan L. Shady, M.D. ECG 12 lead Date/Time: 07/04/2018 8:42 PM Performed by: ENID LANDIS Authorized by: ENID LANDIS Rate: ECG rate: 71 Rhythm: Rhythm: sinus rhythm T waves: T waves: flattening and inverted T wave flattening noted on lead: diffuse, nonspecific. Inverted: III and V3 MDM ED Course as of Jul 05 714 Time: 07/04 2126 Value: XR Chest Pa Lateral 2 Vw Comment: Preliminary result: no acute disease By: Alok Fenton Time: 07/04 2137 Comment: Patient rechecked. States she is feeling better. Updated her on chest x-ray results which were negative and lab work which showed an elevated D-Dimer. Explained reasoning for CT Chest. Pt understands and agrees with the plan. She denies concern for due to history of tubal ligation. By: Alok Fenton Time: 07/04 2243 Value: CT Chest PE W Contrast Comment: CT chest shows no PE but does show a soft tissue mass in epicardial fat and recommends PETscan. By: Alok Fenton Time: 07/04 2323 Comment: Updated patient on CT findings. Discussed plan for discharge with follow-up with Dr. Richards for further evaluation. Patient understands and agrees with the plan. All questions and concerns addressed at this time. By: Alok Fenton IMPRESSION: 1. Chest wall pain 2. Chest mass ATTESTATIONS: 7:14 AM: This note is prepared by Alok Fenton, acting as a scribe for Enid Landis MD. I electronically signed this note at 7:14 AM on 07/05/2018. I, Enid Landis MD, have personally performed the services described in the documentation, reviewed the documentation, as recorded by the scribe in my presence, and it accurately and completely records my words and actions. Enid Landis MD 07/05/18 0715 [facility] documented in this encounter Plan of Treatment Not on file documented as of this encounter Procedures Procedure Name Priority Date/Time Associated Diagnosis Comments CT CHEST PE W CONTRAST ED 8 9:50 PM [facility] XR CHEST PA LATERAL 2 VIEWS ED 07/04/2018 9:13 PM [facility] EGFR STAT 07/04/2018 8:51 PM [facility] DIFFERENTIAL AUTO STAT 07/04/2018 8:5 1 PM [facility] CBC WITH AUTO DIFFERENTIAL STAT 07/04/2018 8:51 PM [facility] APTT STAT 07/04/2018 8:51 PM [facility] PROTIME-INR STAT 07/04/2018 8:51 PM [facility] D-DIMER, QUANTITATIVE STAT 07/04/2018 8:51 PM [facility] COMPREHENSIVE METABOLIC PANEL STAT 07/04/2018 8:51 PM [facility] ECG 12-LEAD STAT 07/04/2018 8:16 PM [facility] documented in this encounter Results * CT Chest PE W Contrast (07/04/2018 9:50 PM [facility]) Anatomical Region Laterality Modality Body N/A Computed Tomogra phy 07/04/2018 9:59 PM [facility] Impressions 07/04/2018 10:16 PM [facility] 1. NO EVIDENCE OF PULMONARY EMBOLISM. 2. ??OVOID LOW-ATTENUATION SOFT TISSUE MASS WITHIN THE RIGHT EPICARDIAL FAT MASS MEASURING 2.1 X 1.4 X 2.3 CM . ??PET SCAN RECOMMENDED TO FURTHER CHARACTERIZE. 3. ??NONSPECIFIC 8 MM NODULE RIGHT LOBE OF THYROID GLAND. ??RECOMMEND THYROID ULTRASOUND FOR FURTHER EVALUATION. Electronically signed by: Juan Frost M.D. Narrative 07/04/2018 10:[address] [facility] [address] CHEST PE W CONTRAST HISTORY: ??Chest pain. ??Jaw surgery 06/17/2018. ??D-dimer 273. TECHNIQUE: Serial axial images of the chest obtained per pulmonary embolism protocol with 125 mL Optiray 350. ??Coronal and sagittal reformations were created. COMPARISON: Chest radiograph 07/04/2018 FINDINGS: There is mild respiratory blurring on several of the images. No acute pulmonary emboli identified. The thoracic aorta is normal in caliber. There is a left arm PICC line whose tip terminates in the very proximal aspect of the superior vena cava. There is an ovoid low-attenuation mass in the right epicardial fat measuring 2.1 x 1.4 x 2.3 cm on axial image #279 and coronal image #18 respectively. ??PET scan recommended to further characterize the clinical significance of this soft tissue mass. Heart size is normal with no pericardial effusion. There is no pleural effusion. There is no pulmonary consolidation. ??There is a small amount of atelectasis in the left lower lobe. There is an 8 mm low-attenuation nodule in the right lobe of the thyroid gland. ??Recommend thyroid ultrasound follow-up for further evaluation. There are no acute osseous abnormalities. Limited images extending into the upper abdomen demonstrate small nonobstructing stones in the superior pole of the left kidney. Procedure Note Juan Frost MD - 07/04/2018 CT CHEST PE W CONTRAST HISTORY: Chest pain. Jaw surgery 06/17/2018. D-dimer 273. TECHNIQUE: Serial axial images of the chest obtained per pulmonary embolism protocol with 125 mL Optiray 350. Coronal and sagittal reformations were created. COMPARISON: Chest radiograph 07/04/2018 FINDINGS: There is mild respiratory blurring on several of the images. No acute pulmonary emboli identified. The thoracic aorta is normal in caliber. There is a left arm PICC line whose tip terminates in the very proximal aspect of the superior vena cava. There is an ovoid low-attenuation mass in the right epicardial fat measuring 2.1 x 1.4 x 2.3 cm on axial image #279 and coronal image #18 respectively. PET scan recommended to further characterize the clinical significance of this soft tissue mass. Heart size is normal with no pericardial effusion. There is no pleural effusion. There is no pulmonary consolidation. There is a small amount of atelectasis in the left lower lobe. There is an 8 mm low-attenuation nodule in the right lobe of the thyroid gland. Recommend thyroid ultrasound follow-up for further evaluation. There are no acute osseous abnormalities. Limited images extending into the upper abdomen demonstrate small nonobstructing stones in the superior pole of the left kidney. IMPRESSION: 1. NO EVIDENCE OF PULMONARY EMBOLISM. 2. OVOID LOW-ATTENUATION SOFT TISSUE MASS WITHIN THE RIGHT EPICARDIAL FAT MASS MEASURING 2.1 X 1.4 X 2.3 CM . PET SCAN RECOMMENDED TO FURTHER CHARACTERIZE. 3. NONSPECIFIC 8 MM NODULE RIGHT LOBE OF THYROID GLAND. RECOMMEND THYROID ULTRASOUND FOR FURTHER EVALUATION. Electronically signed by: Juan Frsot M.D. Enid Landis MD IMG CT PROCEDURES Final Re sult * XR Chest Pa Lateral 2 Vw (07/04/2018 9:13 PM [facility]) Anatomical Region Laterality Modality Body, Chest N/A Computed Radiogr aphy 07/04/2018 9:41 PM [facility] Impressions 07/04/2018 9:44 PM [facility] NO ACTIVE DISEASE WITH LEFT ARM PICC LINE.. Electronically signed by: Juan Frost M.D. Narrative 07/04/2018 9:44 PM [facility] XR CHEST PA LATERAL 2 VIEWS HISTORY: Chest pain COMPARISON: None available. FINDINGS: Heart size is normal. ??Lungs are clear. ??There is a left arm PICC line whose tip is in the very proximal aspect of the superior vena cava. Procedure Note Juan Frost MD - 07/04/2018 XR CHEST PA LATERAL 2 VIEWS HISTORY: Chest pain COMPARISON: None available. FINDINGS: Heart size is normal. Lungs are clear. There is a left arm PICC line whose tip is in the very proximal aspect of the superior vena cava. IMPRESSION: NO ACTIVE DISEASE WITH LEFT ARM PICC LINE.. Electronically signed by: Juan Frost M.D. us Enid Landis MD IMG XR PROCEDURES Final Re sult * eGFR (07/04/2018 8:51 PM [facility]) eGFR 98 mL/min/1.7 3 m2 [facility] ([place]) Comment: Interpretive Data Reference Interval Normal ?>/= 90 mL/min/1.73m2 Mildly decreased* ? 60 - 89 mL/min/1.73m2 Mildly to moderately decreased ?45 - 59 mL/min/1.73m2 Moderately to severely decreased ??30 - 44 mL/min/1.73m2 Severely decreased ?15 - 29 mL/min/1.73m2 Kidney Failure ?< 15 ??mL/min/1.73m2 *Relative to young adult level If -Wallisian multiply value by 1.16. Estimated glomerular filtration [...] was last reviewed 2016. Blood specimen (specimen) 07/04/2018 8:51 PM [facility] 07/04/2018 8:55 PM [facility] Narrative [facility] ([place]) - 07/04/2018 9:14 PM [facility] us Enid Landis MD LAB BLOOD ORDERABLES Final Result [facility] ([place]) 1 [facility] Department [place] [address] * Differential, auto (07/04/2018 8:51 PM [facility]) Neutrophil abs 3.0 1.7 - 6.5 K/cumm [facility] ([place]) Imm gran abs 0.0 0.0 - 0.1 K/cumm [facility] ([place]) Lymphocyte abs 1.8 0.8 - 3.3 K/cumm [facility] ([place]) Monocyte abs 0.6 0.2 - 0.8 K/cumm [facility] ([place]) Eosinophil abs 0.1 0.0 - 0.5 K/cumm [facility] ([place]) Basophil abs 0.0 0.0 - 0.1 K/cumm [facility] ([place]) Neutrophil pct 54.1 % [facility] ([place]) Comment: Interpretive Data Percent cell count reference ranges are not reported, since discordance with absolute values may lead to misinterpretation of CBC data. Current Interpretive Data was last revised on 2017. Imm gran pct 0.2 % [facility] ([place]) Comment: Interpretive Data Percent cell count reference ranges are not reported, since discordance with absolute values may lead to misinterpretation of CBC data. Current Interpretive Data was last revised on 2017. Lymphocyte pct 32.6 % [facility] ([place]) Comment: Interpretive Data Percent cell count reference ranges are not reported, since discordance with absolute values may lead to misinterpretation of CBC data. Current Interpretive Data was last revised on 2017. Monocyte pct 10.3 % [facility] ([place]) Comment: Interpretive Data Percent cell count reference ranges are not reported, since discordance with absolute values may lead to misinterpretation of CBC data. Current Interpretive Data was last revised on 2017. Eosinophil pct 2.3 % [facility] ([place]) Comment: Interpretive Data Percent cell count reference ranges are not reported, since discordance with absolute values may lead to misinterpretation of CBC data. Current Interpretive Data was last revised on 2017. Basophil pct 0.5 % [facility] ([place]) Comment: Interpretive Data Percent cell count reference ranges are not reported, since discordance with absolute values may lead to misinterpretation of CBC data. Current Interpretive Data was last revised on 2017. Blood specimen (specimen) 07/04/2018 8:51 PM [facility] 07/04/2018 8:55 PM [facility] Narrative [facility] ([place]) - 07/04/2018 8:58 PM [facility] us Enid Landis MD LAB BLOOD ORDERABLES Final Result Performing Organization Address City/[facility] Co de Phone Number [facility] ([place]) 1 [facility] [place] [address] * (ABNORMAL) D-dimer, quantitative (07/04/2018 8:51 PM [facility]) D-dimer 273(H) 150 - 230 ng/mL D-DU [facility] ([place]) Comment: Interpretive Data This D-dimer test is approved by the FDA to exclude suspected PE and DVT in outpatients when the result is <230 ng/mL in conjunction with a pre-test probability score of low or moderate using the Wells criteria. Current Interpretive Data was last revised on 2015. Blood specimen (specimen) 07/04/2018 8:51 PM [facility] 07/04/2018 8:55 PM [facility] Narrative [facility] ([place]) - 07/04/2018 9:14 PM [facility] us Enid Landis MD LAB BLOOD ORDERABLES Final Result Performing Organization Address City/[facility]/ZIP Co de Phone Number [facility] ([place]) 1 [facility] [place] [address] * aPTT (07/04/2018 8:51 PM [facility]) aPTT 34.1 25.0 - 37.0 sec [facility] ([place]) Blood specimen (specimen) 07/04/2018 8:51 PM [facility] 07/04/2018 8:55 PM [facility] Narrative [facility] ([place]) - 07/04/2018 9:14 PM [facility] us Enid Landis MD LAB BLOOD ORDERABLES Final Result Performing Organization Address City/[facility] Co de Phone Number [facility] ([place]) 1 [facility] [place] [address] * (ABNORMAL) Protime-INR (07/04/2018 8:51 PM [facility]) PT 13.8(H) 9.5 - 13.0 sec [facility] ([place]) INR 1.22(H) 0.90 - 1.20 [facility] ([place]) Comment: Interpretive Data Recommended ranges for Protime INR: 2.0 - 3.0 Most indications for Warfarin therapy (e.g. Treatment of DVT, PE, bioprosthetic valve replacement, prophylaxis venous thrombosis, atrial fibrillation). 2.5 - 3.5 Mechanical mitral valve or dual mechanical mitral and Aortic valve replacement. Current Interpretive Data was last revised on 2015. Blood specimen (specimen) 07/04/2018 8:51 PM [facility] 07/04/2018 8:55 PM [facility] Narrative [facility] ([place]) - 07/04/2018 9:11 PM [facility] us Enid Landis MD LAB BLOOD ORDERABLES Final Result Performing Organization Address City/[facility]/ZIP Co de Phone Number [facility] ([place]) 1 [facility] [place] [address] * (ABNORMAL) Comprehensive metabolic panel (07/04/2018 8:51 PM [facility]) Sodium 135 135 - 145 mmol/L [facility] ([place]) Potassium, pl 4.0 3.3 - 4.9 mmol/L [facility] ([place]) Chloride 101 97 - 110 mmol/L [facility] ([place] CO2 24 22 - 32 mmol/L [facility] ([place]) Anion gap 10 2 - 15 mmol/L [facility] ([place]) BUN 6(L) 8 - 25 mg/dL [facility] ([place]) Creatinine 0.75 0.60 - 1.10 mg/dL [facility] ([place]) Glucose 111 70 - 199 mg/dL [facility] ([place]) [...] interpretive data was last revised 2017. Calcium 8.9 8.5 - 10.3 mg/dL [facility] ([place]) Bilirubin, total <0.2 0.1 - 1.2 mg/dL [facility] ([place]) Protein, pl 6.5 6.5 - 8.5 g/dL [facility] ([place]) Albumin 3.6 3.5 - 5.0 g/dL [facility] ([place]) Alk phos 76 40 - 130 Units/L [facility] ([place]) ALT 18 7 - 45 Units/L [facility] ([place]) AST 27 10 - 45 Units/L [facility] ([place]) Blood specimen (specimen) 07/04/2018 8:51 PM [facility] 07/04/2018 8:55 PM [facility] Narrative [facility] ([place]) - 07/04/2018 9:14 PM [facility] us Enid Landis MD LAB BLOOD ORDERABLES Final Result [facility] ([place]) 1 [facility] [place] [address] * (ABNORMAL) CBC with auto differential (07/04/2018 8:51 PM [facility]) WBC 5.6 3.8 - 9.9 K/cumm [facility] ([place]) Hgb 12.1 11.9 - 15.5 g/dL [facility] ([place]) Hct 35.5(L) 35.6 - 45.5 % [facility] ([place]) Plt 179 150 - 400 K/cumm [facility] ([place]) MPV 11.5 9.1 - 12.3 fL [facility] ([place]) RBC 3.62(L) 3.90 - 5.20 M/cumm [facility] ([place]) MCV 98.1(H) 81.3 - 96.4 fL [facility] ([place]) MCH 33.4(H) 27.1 - 33.3 pg [facility] ([place]) MCHC 34.1 32.3 - 35.7 g/dL [facility] ([place]) RDW CV 12.5 11.1 - 14.9 % [facility] ([place]) RDW SD 45.1 35.7 - 48.1 fL [facility] ([place]) NRBC abs 0.00 0.00 - 0.01 K/cumm [facility] ([place]) Blood specimen (specimen) 07/04/2018 8:51 PM [facility] 07/04/2018 8:55 PM [facility] Narrative [facility] ([place]) - 07/04/2018 8:58 PM [facility] us Enid Landis MD LAB BLOOD ORDERABLES Final Result [facility] ([place]) 1 [facility] [place] [address] * ECG 12 lead (07/04/2018 8:16 PM [facility]) 07/04/2018 8:16 PM [facility] Narrative [facility] - 07/08/2018 12:40 PM [facility] Vent Rate: 71 bpm RR Interval: 834 msec NE Interval: 152 msec QRS Duration: 85 msec QT Interval: 387 msec QTC Interval: 410 msec P-R-T Barnum: 2 - 40 - 9 degrees SINUS RHYTHM NORMAL ECG Electronically Signed By: Mohit Pratt MD us Enid Landis MD ECG ORDERABLES Final Resu lt [facility] documented in this encounter Visit Diagnoses Diagnosis Chest wall pain- Primary Painful respiration Chest mass Swelling, mass, or lump in chest documented in this encounter Administered Medications Inactive Administered Medications - up to 3 most recent administrations Medication Order MAR Action Action Date Dose Rate Site ioversol (OPTIRAY 350) syringe syringe 125 mL 125 mL, intravenous, Once in imaging, contrast, protocal, Starting on 07/04/18 at 2138, For 1 dose Given 07/04/2018 9:50 PM [facility] 125 mL ketorolac (TORADOL) injection 30 mg 30 mg, intravenous, Once, On 07/04/18 at 2038, For 1 dose, For Adult IV push, administer over 15 seconds, Indications: PainIndications:Pain Given 07/04/2018 8:57 PM [facility] 30 mg LORazepam (ATIVAN) injection 1 mg 1 mg, intravenous, Once, On 07/04/18 at 2046, For 1 dose, For IV administration, do not exceed a rate of 2 mg/minute Given 07/04/2018 8:55 PM [facility] 1 mg documented in this encounter Active and Recently Administered Medications Times are shown in [facility]. Scheduled Medication Order 07/02/2018 07/03/2018 07/04/2018 ketorolac (TORADOL) injection 30 mg (COMPLETED) 30 mg, intravenous, Once, On 07/04/18 at 2038, For 1 dose, For Adult IV push, administer over 15 seconds, Indications: Pain 2056 (Given - Provid er: Va Franklin RN) LORazepam (ATIVAN) injection 1 mg (COMPLETED) 1 mg, intravenous, Once, On 07/04/18 at 2046, For 1 dose, For IV administration, do not exceed a rate of 2 mg/minute 2054 (Given - Provid er: Va Franklin RN) PRN Medication Order 07/02/2018 07/03/2018 07/04/2018 ioversol (OPTIRAY 350) syringe syringe 125 mL (COMPLETED) 125 mL, intravenous, Once in imaging, contrast, protocal, Starting on 07/04/18 at 2139, For 1 dose 2150 (Given - Provid er: Juana Krueger, R-RT) documented in this encounter Care Teams Fur Mixer Operator Relationship Specialty Start Date End Date Sg Richards MD PCP - General 10/17/16 07/04/21 documented as of this encounter
--- OUTSIDE RECORDS SUMMARY | 2024-07-16 12:54 | XMS_ITS | Encounter Summary ---
Author Organization [facility] Facility Care Team Providers Care Mill Hand Name Role Phone Sg Richards MD Primary Care Provider + Encounter Details Date Type Department Care Team (Latest Contact Info) Description 11/25/2018 Travel Social History Tobacco Use Types Packs/Day [...] on filedocumented in this encounter Care Teams Mill Hand Relationship Specialty Start Date End Date Sg Richards MD PCP - General 10/17/16 07/04/21 documented as of this encounter
--- OUTSIDE RECORDS SUMMARY | 2024-07-16 12:54 | XMS_ITS | Encounter Summary ---
Author Organization [facility] Address [address] [place] [address] Phone Care Team Providers Care Robotic Maintenance Technician Name Role Phone Sg Richards MD Primary Care Provider + Reason for Visit * Reason Onset Date Comments Seizures 06/25/2018 Encounter Details Date Type Department Care Team (Late st Contact Info) Description 06/25/2018 Telephone [facility] Epilepsy [address] [facility] 6th [place] [address] [place] [address] Jerry Augustine MD PhD [address] [place] [address] Seizures Social History Tobacco Use Types Packs/Day Years [...] Notes * Telephone Encounter - Yuly Harrington LPN - 06/28/2018 10:51 AM CST I spoke with pt's to let him know per Dr. Augustine, no change for now and pt. Should call for further szs. KF BODY REPAIR ESTIMATOR * Telephone Encounter - Jerry Augustine MD PhD - 06/28/2018 10:18 AM AUTO BODY REPAIR ESTIMATOR Seizure probably triggered. No changes yet, but call if continued seizures. Will BODY REPAIR ESTIMATOR * Telephone Encounter - Yuly Harrington LPN - 06/25/2018 4:[address] Augustine, OLLIE- I spoke with pt's and pt wanted to let you know she will need 2 more surgeries. 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 The antibiotic Invanzertapenelcaused a reaction which she feels caused the sz. She was doing well prior to this . AED's LTG 350mgBID,LEV 2000mg BID,PRM 75mg Q HS, and GBP 1200mg BID for pain. Any change at this time due to infection? Yuly Alexis BODY REPAIR ESTIMATOR * Telephone Encounter - Soledad Franco - 06/25/2018 4:01 PM AUTO BODY REPAIR ESTIMATOR Patient had a seizure yesterday was seen in the ER see encounters for details. Patient's states her mouth is wired shut has a picc line was given an antibiotic yesterday and then she had a seizure. They have already informed patient's doctor about the seizure and they antibiotic they are changing her antibiotic. Wants to inform Dr. Augustine as well as see if there is any changes that needed aminta made BODY REPAIR ESTIMATOR documented in this encounter Plan of Treatment Not on file documented as of this encounter Visit Diagnoses Not on filedocumented in this encounter Care Teams Robotic Maintenance Technician Relationship Specialty Start Date End Date Sg Richards MD PCP - General 10/17/16 07/04/21 documented as of this encounter
--- OUTSIDE RECORDS SUMMARY | 2024-07-16 12:54 | XMS_ITS | Encounter Summary ---
Author Organization [facility] Address [address] [place] [address] Phone Care Team Providers Care Per Assessment Nurse Name Role Phone Sg Richards MD Primary Care Provider + Encounter Details Date Type Department Care Team (Late st Contact Info) Description 12/18/2017 Orders Only [facility] Scheduling [address] [place] [address] Candace Robert, [place] Social History Tobacco Use Types Packs/Day Years [...] Discontinue Reason Start Date End Da te primidone (MYSOLINE) 50 mg tablet take 5 tablet by oral route 3 times every day Duplicate order 06/24/2016 12/18/2017 primidone (MYSOLINE) 50 mg tablet take 1 1/2 tablet by oral route every day Duplicate order 06/04/2016 12/18/2017 levETIRAcetam (KEPPRA) 1,000 mg tablet take 1 tablet by oral route every 12 hours Duplicate order 02/14/2015 12/18/2017 levETIRAcetam (KEPPRA) 1,000 mg tablet take 2 tablet by oral route every 12 hours Duplicate order 06/04/2016 12/18/2017 documented as of this encounter Historical Medications * This list may reflect changes made after this encounter. primidone (MYSOLINE) 50 mg tablet Take 75 mg by mouth nightly. 8 levETIRAcetam (KEPPRA) 1,000 mg tablet Take 2,000 mg by mouth 2 (two) times a day. 8 lamoTRIgine (LaMICtal) 100 mg tablet Take 350 mg by mouth 2 (two) times a day. 04/09/2016 8 clonazePAM (KlonoPIN) 1 mg disintegrating tablet Take 1 mg by mouth 2 (two) times a day. TAKE 1 TAB PO BID PRN SEIZURE CLUSTERS OR PROLONGED SEIZURES (>5MIN) 09/24/2016 9 added in this encounter Care Teams Per Assessment Nurse Relationship Specialty Start Date End Date Sg Richards MD PCP - General 10/17/16 07/04/21 documented as of this encounter
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
--- OUTSIDE RECORDS SUMMARY | 2024-07-16 12:59 | XMS_ITS | Patient Health Record ---
Author Organization [facility] Address [address] [place] [address] Care Team Providers Care Sheet Manager Name Role Phone Jon Aj [phone] ALLERGIES Allergen (clinical drug ingredient) Drug/Non Drug Allergy documented on EMR Reaction Allergy Type Onset Date Status erythromycin Erythromycin Unknown Drug Allergy A ctive REASON FOR REFERRAL No Information MEDICATIONS Medication SIG (Take, Route, Frequency, Duration) Notes Start Date End Date Status traZODone HCl 50 MG TAKE 1 TABLET BY MOUTH EVERY DAY AT BEDTIME for 30 Active tiZANidine HCl 4 MG TAKE 1 TABLET BY MOUTH TWICE DAILY NEEDED Orally once per day for 30 days Active Aimovig 70 MG/ML as directed Subcutaneous Active HYDROcodone-Acetami nophen 5-325 MG 1 tablet as needed Orally every 12 hrs for 30 days Patient is weaning off Hydrocodone . 11/25/2022 Active Ondansetron HCl 4 MG as directed Orally Twice a day for 30 day(s) 10/26/2018 Not-Taking HYDROcodone-Acetami nophen 5-325 MG 1 tablet as needed Orally every 6 hrs for 30 days may fill 09-27-22 07/29/2022 Active levETIRAcetam 1000 MG 1 tablet Orally every 12 hrs Active lamoTRIgine ER 200 MG 1 tablet Orally Once a day Active Pantoprazole Sodium 40 MG 1 tablet Orally Once a day Active Primidone 50 MG 1 tablet Orally Once a day Active Gabapentin 600 MG TAKE 2 TABLETS BY MOUTH THREE TIMES DAILY Orally take 2 three times per day for 30 day(s) Active SOCIAL HISTORY Tobacco Use: Social History Observation Description Date Details (start date - stop date) Never Smoker NA - NA Sex Assigned At : Social History Observation Description Sex Assigned At Unknown Tobacco Use/Smoking Question Answer Notes Are you a nonsmoker Alcohol Screen (Audit-C) Question Answer Notes Did you have a drink containing alcohol in the p ast year? No Points 0 Interpretation Negative PROBLEMS Problem Type ICD Code Onset Dates Problem Status W/U Status Risk SNOMED Code Notes Problem Primary osteoarthritis, unspecified site (M19.91) Active confirmed Primary generalised osteoarthritis ([id number]) PLAN OF TREATMENT No Information MEDICAL (GENERAL) HISTORY Medical History History ICD Code hypertension angina rheumatoid arthritis migraine headaches anxiety Panic attacks Surgical History Surgery Date(Month/Year) tmj left ear cyst surgery left jaw - 62 surgeries jaw/tooth surgery 10/2021
--- OUTSIDE RECORDS SUMMARY | 2024-07-16 12:59 | XMS_ITS ---
Author Organization [facility] Address [address] [place] [address] Care Team Providers Care International Manager Name Role Phone Jean MarieJon [phone] MEDICATIONS Medication SIG (Take, Route, Fr equency, Duration) Notes Start Date End Date Status tiZANidine HCl 4 MG TAKE 1 TABLET BY ADALGISA TH TWICE DAILY NEEDED Orally once per day for 30 days Active Encounters Encounter Location Date Provider Diagnosis [place] [facility] [address] [place] [address] 01/23/2023 Jon Aj PLAN OF TREATMENT Medication Medication Name Sig Start Date Stop Date Notes tiZANidine HCl 4 MG TAKE 1 TABLET BY ADALGISA TH TWICE DAILY NEEDED Orally once per day for 30 days Progress Notes * Delmi SIMPSONOB:1975 (47 yo F)Acc No.[id number]:01/23/2023 Patient:??Kalpana Simpson :1975?Age:47 Y?Sex:Fe male Address:[address] [place] [id number] * Refills?? Refill tiZANidine HCl Tablet, 4 MG, Orally, 30, TAKE 1 TABLET BY MOUTH TWICE DAILY NEEDED, once per day, 30 days * true * Date:??
--- OUTSIDE RECORDS SUMMARY | 2024-07-16 13:00 | XMS_ITS | Encounter Summary ---
Author Organization [facility] Address [address] [place] [address] Care Team Providers Care Flatbed Driver Name Role Phone Davi Georges MD Primary Care Provider [phone] Reason for Visit * Auth/Cert Specialty Diagnoses / Procedures Referred By Carlosac t Referred To Contact Diagnoses TRISMUS Procedures CA OPEN REDUCTN TEM-MANDIBLE DISLOC CA OPEN REDUCTN TEM-MANDIBLE DISLOC CA REM IMP TOOTH W MUCOPER FLP CA ODONTICS ENDOSTEAL IMPLANT Dylon Fung MD [address] [address] Referral ID Status Reason Start Date Expiration Date Visits Re quested Visits Authorized [id number] 07/11/2021 1 1 Encounter Details Date Type Department Care Team (Latest Contact Info) Description 11/28/2021 11:59 AM CDT - 11/28/2021 7:39 PM T Hospital Encounter [facility] [address] [place] [address] Dylon Fung MD [address] [address] Discharge Disposition: Home or Self Care Social History Tobacco Use Types Packs/Day Years Used Date Smoking Tobacco: Former Cigarettes 0.3 15 1 08/08/2002 - 06/08/2018 Smokeless Tobacco: Never Comments:OFF AND ON Alcohol Use Standard Drinks/Week Comments No 0 (1 standard drink = 0.6 oz pur e alcohol) Sex and Gender Information Value Date Recorded Sex Assigned at Not on file Gender Identity Not on file Sexual Orientation Not on file COVID-19 Exposure Response Date Recorded In the last 10 days, have merissa u been in contact with someone who was confirmed or suspected to have Coronavirus/COVID-19? No / Unsure 11/25/2021 1:40 PM CDT documented as of this encounter Last Filed Vital Signs Vital Sign Reading Time Taken Comments Blood Pressure 108/65 11/28/2021 7:09 PM CDT Pulse 65 11/28/2021 7:09 PM CDT Temperature 36.5 ??C (97.7 ??F) 11/28/2021 7:09 PM CD T Respiratory Rate 18 11/28/2021 7:09 PM CDT Oxygen Saturation 95% 11/28/2021 7:09 PM CDT Inhaled Oxygen Concentration - - Weight 99.8 kg (220 lb) 10/03/2021 12:31 PM CDT Height 163.2 cm (5' 4.25 ) 10/03/2021 12:31 PM C DT Body Mass Index 37.47 10/03/2021 12:31 PM CDT documented in this encounter Discharge Instructions * Discharge Instructions* Nettie Maguire - 11/28/2021 6:07 PM CDT [facility] Discharge Instructions ACTIVITY: ??? No strenuous activity such as sports or athletic working out for 2 weeks. ??? Do not lift more than ten (10) pounds for 2 weeks. ??? Avoid excessive stooping, bending, or pulling for four (4) weeks after surgery. ??? Climbing stairs is allowed. Walking is encouraged. ??? No driving while taking narcotic pain medication, or until the surgeon releases you to do so. ??? No smoking! WOUND CARE: ??? May wash incision daily with soap water using a fresh washcloth each time. Showering is allowed2 days postoperatively. ??? Report ANY redness, drainage, or warmth at the incision site or difficulty with swallowing to the surgeon???s office. Report any fever greater than 101 degrees F. ??? Men should avoid shaving close to the incision for one (1) week. DIET: ??? Resume preoperative diet. Heart healthy diet advised. MEDICATIONS: Refer to discharge medication list. FOLLOW-UP: ??? Dylon Fung MD, DDS in approximately 2 weeks. Call [phone] to schedule day and time ofthe appointment ??? If you have any questions, please do not hesitate to call our office. Dylon Fung MD, DDS SAFETY For the next 24 hours, you may feel sleepy due to medicines used during your procedure. For the next 24 hour period or while you are on pain medication, DO NOT make any important decisions or sign any important papers. DO NOT drink any alcoholic beverages, including beer. DO NOT drive a car or operate machinery and power tools. For your safety and protection, we strongly recommend that a responsible adult be with you today and throughout the night. Medication Pain Medication given at . Next dose due at , if needed. ADDITIONAL INFORMATION Once you are home, if you develop any of the following symptoms, call your physician. Difficulty in breathing, persistent nausea or vomiting, pain that is unusual, excessive swelling orredness at incision site, trouble swallowing, inability to void, temperature greater than 101 degrees, excessive bleeding at incision site. If you cannot contact your physician, call or come to the Emergency Room at [facility] ([phone]) or the nearest Emergency Room. In an emergency, Call 911. documented in this encounter Medications at Time of Discharge Medication Sig Dispensed Refills Start Date End Date rizatriptan (MAXALT) 5 mg Tablet Take 5 mg by mouth every 2 hours as needed for Migraine. may repeat in 2 hours; max dose 30mg in 24 hours erenumab-aooe (AIMOVIG) 70 mg/mL Auto-Injector Inject 70 mg by subcutaneous injection one time only. - (one of these days) of each month TAKEN X1 PER MONTH ibuprofen (MOTRIN) 800 mg tablet Take 1 Tablet (800 mg) by mouth every 8 hours. 30 Tablet 11/04/2018 lamoTRIgine (LaMICtal) 100 mg tablet Take 350 mg by mouth 2 times daily . 06/23/2016 calcium carbonate (TUMS ORAL) Take by mouth 1 time daily as needed. levETIRAcetam (KEPPRA) 1,000 mg tablet Take 2,000 mg by mouth 2 times daily . primidone (MYSOLINE) 50 mg tabletIndications:1 1/2 at bedtime Take 250 mg by mouth 2 times daily. traZODone (DESYREL) 100 mg Oral tablet Take 100 mg by mouth daily at bedtime. gabapentin (NEURONTIN) 600 mg Oral tablet Take 1,200 mg by mouth 3 times daily. buPROPion SR 12 hour (WELLBUTRIN-SR) 150 mg Oral tablet Take 150 mg by mouth 2 times daily. documented as of this encounter Progress Notes * Nettie Maguire - 11/28/2021 7:[address] Marrufo if patient could remove gauze from mouth, ok to remove but replace if bleeding restarts. documented in this encounter H&P Notes * Hill Nelson Jr., MD - 11/28/2021 4:44 PM CDT Attending Physician: Dylon Fung MD 11/28/21 4:44 PM FS History and Physical Patient name: Amita Simpson Date of : 1975 Today's Date: 11/28/21 HPI: Amita Simpson is a 46 y.o. 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 Patient presents for scheduled procedure. No significant changes to health since last seen by FS. REVIEW OF SYMPTOMS: Within normal limits except as above MEDICATIONS: No current facility-administered medications on file prior to encounter. Current Outpatient Medications on File Prior to Encounter Medication Sig Dispense Refill ??? rizatriptan (MAXALT) 5 mg Tablet Take 5 mg by mouth every 2 hours as needed for Migraine. may repeat in 2 hours; max dose 30mg in 24 hours ??? HYDROcodone-acetaminophen (NORCO) 5-325 mg tablet Take 1 Tablet by mouth 2 times daily. TAKES 1EXTRA ONE DAILY ON OCCASION ??? ibuprofen (MOTRIN) 800 mg tablet Take 1 Tablet (800 mg) by mouth every 8 hours. 30 Tablet 0 ??? lamoTRIgine (LaMICtal) 100 mg tablet Take 350 mg by mouth 2 times daily . ??? calcium carbonate (TUMS ORAL) Take by mouth 1 time daily as needed. ??? levETIRAcetam (KEPPRA) 1,000 mg tablet Take 2,000 mg by mouth 2 times daily . ??? primidone (MYSOLINE) 50 mg tablet Take 250 mg by mouth 2 times daily. ??? traZODone (DESYREL) 100 mg Oral tablet Take 100 mg by mouth daily at bedtime. ??? gabapentin (NEURONTIN) 600 mg Oral tablet Take 1,200 mg by mouth 3 times daily. ??? buPROPion SR 12 hour (WELLBUTRIN-SR) 150 mg Oral tablet Take 150 mg by mouth 2 times daily. ALLERGIES: Allergies Allergen Reactions ??? Adhesive Tape-Silicones Hives ??? Erythromycin Seizure, Hallucination and Other (See Comments) Neuro problems Seizure as a baby Reaction: Neuro problems, , ??? Silicone Hives ??? Unclassified Drug Swelling ALLERGY TO URINARY CATHETERS PREVIOUS SERIOUS ILLNESS/SURGERY: Past Surgical History: Procedure Laterality Date ??? DILATION AND CURETTAGE 04/10/15 ??? HX CRANIOFACIAL RECONSTRUCTION Left 06/17/2018 ORALMAXILLOFACIAL DEVICE REMOVAL performed by Dylon Fung MD at [facility] OR [facility] ??? HX CRANIOFACIAL RECONSTRUCTION N/A 08/11/2018 ORALMAXILLOFACIAL DEVICE REMOVAL LT. MANDIBLE HARDWARE performed by Dlyon Fung MD at [facility] OR [facility] ??? HX CRANIOFACIAL RECONSTRUCTION N/A 01/12/2019 ORALMAXILLOFACIAL DEVICE REMOVAL performed by Dylon Fung MD at [facility] OR [facility] ??? HX TUBAL LIGATION 04/10/15 ??? HX VAGINAL DELIVERY 09/19/1993 ??? HX WISDOM TEETH EXTRACTION TEEN ??? CA ARTHROPLASTY TMJ+PROSTHESIS N/A 11/03/2018 TEMPOROMANDIBULAR JOINT PROSTHETIC PLACEMENT performed by Dylon Fung MD at [facility] OR [facility] ??? CA EXC SKIN BENIG 0.6-1CM TRUNK,ARM,LEG 08/13/2012 CYST LESION MASS EXCISION performed by Kraig Gabriel MD at [facility] OR [facility] ??? CA EXC SKIN BENIG 0.6-1CM TRUNK,ARM,LEG 09/15/2012 CYST LESION MASS EXCISION performed by Kraig Gabriel MD at [facility] OR [facility] ??? CA EXC SKIN BENIG 0.6-1CM TRUNK,ARM,LEG Left 06/17/2018 CYST LESION MASS EXCISION performed by Kraig Gabriel MD at [facility] OR [facility] ??? CA LAP,CHOLECYSTECTOMY N/A 11/27/2018 CHOLECYSTECTOMY LAPAROSCOPIC POSS OPEN performed by Ignacio Frost MD at [facility] OR [facility] ??? CA MYRINGOPLASTY Left 06/17/2018 MYRINGOPLASTY performed by Kraig Gabriel MD at [facility] OR [facility] ??? CA NERVOUS SYSTEM SURGERY UNLISTED N/A 11/03/2018 STEROID INJECTION performed by Dylon Fung MD at [facility] OR [facility] ??? CA PREP FACE/ORAL PROST UNLISTED 06/17/2018 TEMPOROMANDIBULAR JOINT PROSTHETIC REMOVAL performed by Dylon Fung MD at [facility] OR [facility] ??? CA RECONSTR JAW,FULL,ENDO IMPLNT from 2000 to 2018 total of [address] Dylon Fung ??? CA REMOVAL SUPERFICIAL IMPLANT 11/03/2012 HARDWARE REMOVAL performed by Dylon Fung MD at [facility] OR [facility] ??? CA REMV EXT CANAL SOFT TISSUE LESN 11/03/2012 AURICULAR CYST LESION MASS EXCISION performed by Dylon Fung MD at [facility] OR [facility] Past Medical History: Diagnosis Date ??? Anxiety ??? Arthritis left jaw ??? CAD (coronary artery disease) ??? Complication of anesthesia unable to urinate after surgery, no catheter will wear cotton panties and pad ??? COVID-19 08/17/2021 ??? Depression ??? Difficult intravenous access ??? Difficult intubation small mouth opening, hx jaw surgery ??? Disorder of jaw JAWS WIRED SHUT ??? Endometriosis 2012 ??? GERD (gastroesophageal reflux disease) ??? Headache(784.0) Migraines related to left jaw ??? Heart attack 2010 OR ??? History of complications due to general anesthesia WOKE UP DURING SURGERY, FLAT LINED X2, HARD TO PUT OUT, slow to wake up ??? Hx of mitral valve prolapse ??? Murmur ??? 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 Obstructive sleep apnea no cpap ??? Obstructive sleep apnea (adult) (pediatric) NO MACHINE - NEVER USED MACHINE ??? 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 Seizure disorder DX 04/2014 daily seizure -dizzy and doesn't know what is going on, may falls, h[place]o [place] ??? Temporomandibular joint disorder LEFT SIDE ??? Temporomandibular joint disorders, unspecified ??? Unspecified adverse effect of anesthesia Wakes during surgery, reports cardiac arrest 2007 - MANDIBLE ARTHPOPLATY SURGERY ??? Vertigo PERINENT FAMILY / SOCIAL HISTORY: No family history on file. PHYSICAL EXAM: BP 106/62 (Patient Position (BP): Sitting) Pulse 78 Temp 97.8 ??F (36.6 ??C) (Temporal) Resp 16 Ht 5' 4.25 (1.632 m) Wt 99.8 kg (220 lb) LMP 09/06/2021 Comment: irregular SpO2 97% No BMI 37.47 kg/m?? GEN: NAD HEAD: NCAT EYES: EOMI EARS: deferred NOSE: patent ORAL CAVITY: trismus THROAT: clear NECK: supple HEART: warm and well perfused LUNGS: unlabored on room air ABDOMEN: nondistended EXTREMITIES: no clubbing, cyanosis or edema NEURO: no focal findings or movement disorder noted SKIN: wnl ASSESMENT: Amita Simpson is a 46 y.o. 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 PLAN: -To OR with Dr. Fung for extraction of teeth 15 and 19, dental implant to site 19, mobilization of under anesthesia. -The risks, benefits, and alternatives of the proposed treatments were discussed. All questions were answered. The family made an informed decision to proceed. Hill Nelson Jr, MD Otolaryngology - Head and Neck Surgery 11/28/21 4:44 PM documented in this encounter OR Notes * Operative Report - Dylon Fung MD - 11/29/2021 4:35 AM CDT [place], [place] Patient: AMITA SIMPSON CSN: [id number] : 1975 Provider: Dylon Fung DDS, MD Operative Report DATE OF SERVICE: 11/28/2021 PREOPERATIVE DIAGNOSES: 1. Trismus, temporomandibular joint degenerative joint disease. 2. Nonsalvageable teeth numbers 15 and 19. POSTOPERATIVE DIAGNOSES: 1. Trismus, temporomandibular joint degenerative joint disease. 2. Nonsalvageable teeth numbers 15 and 19. 3. Nonsalvageable tooth number 20. PROCEDURES: 1. Mobilization under anesthesia. 2. Surgical removal of teeth numbers 15, 19, and 20. 3. Dental implants to 19 and 20. ANESTHESIA: General anesthesia via oral endotracheal tube. ESTIMATED BLOOD LOSS: Minimal. FLUID REPLACEMENT: Please see Anesthesia report. DRAINS: None. SPECIMEN: None. IMPLANTS: 2 ITI Straumann dental implants with a 4.8 x 12 WNI Esthetic Plus fixture to the number 20 site comfort 4.8 x 10 mm WNI Esthetic Plus fixture to the number 19 site. COMPLICATIONS: None. COUNTS: Correct x2. INDICATIONS: This is a patient with chronic history of TMD status post total joint replacement with nonsalvageable teeth and decreased range of motion. The risks, benefits, and alternatives of management were reviewed at length with the patient, with the patient electing to proceed with the above procedures. DESCRIPTION OF PROCEDURE: The patient was taken to the operating room, placed in supine position on the table, and general anesthesia was induced via oral endotracheal tube. The patient was then prepped and draped in a standard fashion for oral surgical procedures. The patient was mobilized with Molt mouth prop to 34 mm andheld throughout the procedure. Local anesthetic was then administered to the left upper and lower posterior, where surgical removal of teeth numbers 15 and 19 was performed. During extraction of tooth number 19, tooth number 20 CEJ was noted to be externally resorbing and nonsalvageable piece. Thistooth was remedied as well followed by placement of 2 ITI Straumann dental implants to the 19 and 20 positions with a 4.8 x 10 mm WNI Esthetic Plus to the number 19 site and a 4.8 x 12 mm fixture to the number 20 site. The patient was then turned back over to the Anesthesia Team for emergence from general anesthesia. DISPOSITION: The patient had an unremarkable emergence from general anesthesia, was extubated on the table, and transferred to the postanesthesia care unit in stable condition. Dylon Fung DDS, MD MMODL D: [id number] V: [id number] CC Dylon Fung DDS, MD * Sabrina-OP - Carla Villatoro RN - 11/14/2021 12:32 PM CDT Images from the original note were not included. [facility] Routine Orders Protocol [facility] Approved by: [facility] - Medical Executive Committee Approval Date: 10/03/2021 ORDERS ARE ENTERED ???PER PROTOCOL?? Enter the protocol in the patient's electronic health record using smart phrase: .paceroutineordersprotocol Laboratory Orders: PACE/Anesthesiology Care Screening for Procedures ??? Laboratory exams obtained within 3 months prior to surgery are acceptable if normal, or at baseline. ??? Hematocrit/Hemoglobin ([id number]) o Cases of expected major blood loss in patients of any age as evidenced by an order for Type and Cross or Type and Screen. ??? PT/INR (Lab 320) should be drawn day of surgery for patients: o Taking Warfarin (Coumadin) or who have had Warfarin (Coumadin) discontinued within prior 7 days ??? BMP (Lab15) Patients with: o Diabetes o Renal disease o Dialysis patients: Day of Surgery; If dialysis on day of surgery, post-dialysis o Patients taking the following medications: - Digoxin - Diuretics - Steroids ??? BUN (Czf093)/ Serum Cr (Lab66) o When use of intravenous contrast dye is planned ??? Liver function panel (Lab20) in any patient with: o Jaundice, or active liver disease ??? HgbA1c: If result not available from within 3 months of PACE phone or in- person contact, for patients that meet the following conditions: o Planned operation is an orthopedic or neurosurgical implant, AND o Either a hx of diabetes or a BMI >35 ??? EKG (EKG) 12 lead EKG o EKG obtained within the last 3 months for the following: - Known cardiac disease (CAD, CHF, moderate or worse valvular disease - Patients undergoing cardiac, thoracic, or vascular surgery - CIED - Cardiac Symptoms: ??? Angina, dysrhythmia, palpitations, SOB, PND, S3 - Moderate or greater risk surgery with any of the following: ? ? Stroke/TIA/CVD, PAD/PVD, CKD (Cr>2), DM, or Drugs or toxins that alter conduction (e.g., digoxin, cocaine, MAOIs, antiarrhythmics, antipsychotics, TCAs) Medication Orders: ??? Unless otherwise ordered by a member of the [facility] Staff. 1. STOP a. Seven (7) DAYS PRIOR TO SURGERY: the use of all vitamins, herbal supplements, and other alternative substances. b. Seven (7) DAYS PRIOR TO SURGERY: the use of any UNPRESCRIBED Aspirin, Excedrin and NSAIDs which include Motrin, Ibuprofen, Aleve, and Naprosyn. c. 24 HOURS PRIOR TO PLANNED ARRIVAL AT [facility]: use of angiotensin-converting enzyme (BEN) inhibitorand angiotensin receptor moise (ARB). 2. Continue- on usual schedule and take medication day of surgery with sips of water to swallow a. Aspirin and NSAIDS unless specifically instructed by surgeon to discontinue. b. All prescription medicines on routine schedule as prescribed, unless instructed otherwise Blood Bank: ??? For surgical procedures, prepare blood per [facility] Blood Bank Orders and Patient Identification for Blood Products unless additional blood or blood products have been ordered by a provider, then follow provider order * Sabrina-OP - Carla Villatoro RN - 11/14/2021 12:28 PM CDT [facility] Pre-Procedure Instructions [facility] Name: Amita Simpson Age: 46 y.o. Please report to the: [facility] Date of Procedure: 11/27/2021 ??? Limit time spent out in the community (self-quarantine) prior to surgery/procedure to avoid anypotential for COVID-19 exposure. ??? Arrive at the time your surgeon's office has instructed. You will receive a call from your surgeon's office with your arrival time. The decision whether to stay overnight or go home will be made by the attending surgeon. PLEASE NOTIFY your surgeon promptly if you begin to feel ill prior to your surgery. A cold, sore throat, fever, flu or covid symptoms may require postponing the surgery to another date for your safety. Please follow these important instructions PRE-PROCEDURE DIETARY INSTRUCTIONS Follow your surgeon's instructions regarding oral intake prior to your scheduled procedure. If no specific instructions were given from your surgeon's office; below are the guidelines from the anesthesia department: Based on your health history and/or scheduled procedure, the following pre- procedure dietary instructions should be followed: Strict NPO ?? Do not eat food or drink liquids after midnight prior to your procedure. ?? Oral Hygiene: Patients are encouraged to brush teeth, without swallowing, on the day of the procedure. WITHIN 24 HOURS PRIOR TO SURGERY Shower (bathe) and shampoo the evening before and morning of surgery. If instructed to do so, please follow the directions on the provided soap or antibacterial soap. ? Before you bathe, or shower carefully read all directions and warnings on the product label. Shower or bathe with an antiseptic soap solution chosen by your surgeon, such as Chlorhexidine Gluconate (CHG) with brand names like Hibiclens. If you are allergic to CHG, Hibiclens or Aloe DO NOT use product. Showering will ensure removal of bacteria and minimize risk of infection. ?? Do not use the CHG soap on your face. Avoid getting the soap in your genital area, eyes, ears, mouth, or nose. While using the soap, if you feel itchy or experience red skin, stop using the product and immediately rinse off with water. Tell your care team about this reaction. ?? After rinsing off the soap, do not use regular soap. ?? After your shower, do not apply any powders, lotion, creams, deodorant, or makeup to your skin. ?? Do not shave or remove any hair four days prior to surgery. ?? Using a clean freshly laundered dry towel pat dry after the showers each time you shower. Sleep in clean freshly laundered sleepwear and bed linens. ?? DO NOT WEAR JEWELRY (rings, earrings, and body piercings), wigs, or hair pieces to the hospital. ??? We recommend patients abstain from SMOKING or VAPING TOBACCO / NICOTINE / MEDICAL MARIJUANA foras long as possible prior to surgery. ??? DO NOT SMOKE, VAPE OR USE any TOBACCO / NICOTINE/ MEDICAL MARIJUANA PRODUCTS (smoking, oral, edible products, ointments, tinctures and concentrates) on the day of your procedure. DAY OF SURGERY INSTRUCTIONS ?? YOU WILL NEED A RESPONSIBLE ADULT FAMILY MEMBER OR FRIEND WITH YOU UPON DISCHARGE. YOUR SURGERY MAY BE CANCELLED IF YOU DO NOT HAVE A RESPONSIBLE ADULT TO TAKE YOU HOME. It is highly suggested youhave a responsible adult with you overnight after receiving anesthesia. ?? WEAR comfortable, loose fitting clothes to the hospital that will fit over dressings after your surgery. ?? WEAR GLASSES instead of contact lenses to the hospital; bring a case if possible for glasses, dentures, and hearing aids as you will be asked to remove these items before your surgery. ?? 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 DO NOT BRING VALUABLES or large amounts of donald with you to the hospital. ?? BRING any medical devices you need to the hospital, including remotes for stimulators, CPAP, BIPAP, or WOUND VAC machines. ?? Surgical times are estimates and can vary depending on numerous factors. ?? Expect a minimum post-op recovery of 1 hour. The medical staff will provide updates to family and/or friends as appropriate. ?? For surgical procedures, patient may be allowed two adult visitors. Special considerations may be allowed for pediatric patients under the age of 18 years. ?? Patient and any permitted visitor should arrive to the facility with a mask. If arriving to the facility without a mask, one will be provided. Special considerations may be allowed for pediatric patients under 2 years of age. ?? Patient will wear a mask from the time they enter the facility and will remain in a mask until they leave the facility. During your hospital stay you will receive a personal passcode to help protect your health information. This will be a number that you may share with anyone you choose to receive your protected health information (PHI). Family and friends will need to ask for you by name and use the passcode beforeyour care team can share information, either in person or by phone. Please ask those who have your passcode to protect it. STOP Seven (7) DAYS PRIOR TO SURGERY the use of all vitamins, herbal supplements, and other alternative substances. STOP Seven (7) DAYS PRIOR TO SURGERY the use of any UNPRESCRIBED Asprin, Excedrin and NSAIDs which include Motrin, Ibuprofen, Aleve, and Naprosyn. Ok to take Tylenol as needed for mild pain up to day of surgery. CURRENT MEDICATION LIST Pre-Surgery Instructions Medication Instructions ??? rizatriptan (MAXALT) 5 mg Tablet May take as needed (PRN) medication with sip of water ??? erenumab-aooe (AIMOVIG) 70 mg/mL Auto-Injector Continue as prescribed. ??? HYDROcodone-acetaminophen (NORCO) 5-325 mg tablet May take as needed (PRN) medication with sip of water ??? ibuprofen (MOTRIN) 800 mg tablet Hold for procedure 7 days prior to procedure ??? lamoTRIgine (LaMICtal) 350 mg tablet Take morning of surgery with sip of water ??? calcium carbonate (TUMS ORAL) Do not take day of surgery ??? levETIRAcetam (KEPPRA) 2,000 mg tablet Take morning of surgery with sip of water ??? primidone (MYSOLINE) 250 mg tablet Take morning of surgery with sip of water ??? traZODone (DESYREL) 100 mg Oral tablet Continue to take the evening prior to surgery, as prescribed ??? gabapentin (NEURONTIN) 1200 mg Oral tablet Take morning of surgery with sip of water ??? buPROPion SR 12 hour (WELLBUTRIN-SR) 150 mg Oral tablet Take morning of surgery with sip of water * Sabrina-OP - Carla Villatoro RN - 11/14/2021 12:17 PM CDT Patient was seen in [facility] on 08/14/2021, cleared. Tested positive for covid on 08/17/2021. Surgery wasrescheduled for 10/09/2021, cancelled by patient for allergy symptoms. New DOS 11/27/2021. Patient states she has not had any changes in her medical history or medications since her [facility] phone interview on 10/03/2021. Pre procedural instructions reviewed with the patient, she verbalized understanding. * Sabrina-OP - Andres, Annie White RN - 10/03/2021 12:51 PM CDT [facility] Pre-Procedure Instructions [facility] Name: Amita Simpson Age: 46 y.o. Please report to the: Surgery [facility] Date of Procedure: 10/09/2021 ??? Limit time spent out in the community (self-quarantine) prior to surgery/procedure to avoid anypotential for COVID-19 exposure. ??? Arrive at the time your surgeon's office has instructed. You will receive a call from your surgeon's office with your arrival time. The decision whether to stay overnight or go home will be made by the attending surgeon. PLEASE NOTIFY your surgeon promptly if you begin to feel ill prior to your surgery. A cold, sore throat, fever, flu or covid symptoms may require postponing the surgery to another date for your safety. Please follow these important instructions PRE-PROCEDURE DIETARY INSTRUCTIONS Follow your surgeon's instructions regarding oral intake prior to your scheduled procedure. If no specific instructions were given from your surgeon's office; below are the guidelines from the anesthesia department: Based on your health history and/or scheduled procedure, the following pre- procedure dietary instructions should be followed: Strict NPO ?? Do not eat food or drink liquids after midnight prior to your procedure. ?? Oral Hygiene: Patients are encouraged to brush teeth, without swallowing, on the day of the procedure. WITHIN 24 HOURS PRIOR TO SURGERY ?? SHOWER AND SHAMPOO the evening before and morning of surgery. If instructed to do so, please follow the directions on the provided soap or antibacterial soap. ?? DO NOT SHAVE near the surgical area for at least 24 hours prior. ?? After showering the morning of surgery, DO NOT APPLY body lotions, deodorants, colognes, lipstick, make-up, hairspray, mousse, gel, or powder. ?? DO NOT WEAR JEWELRY (rings, earrings, and body piercings), wigs, or hair pieces to the hospital. ??? We recommend patients abstain from SMOKING or VAPING TOBACCO / NICOTINE / MEDICAL MARIJUANA foras long as possible prior to surgery. ??? DO NOT SMOKE, VAPE OR USE any TOBACCO / NICOTINE/ MEDICAL MARIJUANA PRODUCTS (smoking, oral, edible products, ointments, tinctures and concentrates) on the day of your procedure. DAY OF SURGERY INSTRUCTIONS ?? YOU WILL NEED A RESPONSIBLE ADULT FAMILY MEMBER OR FRIEND WITH YOU UPON DISCHARGE. YOUR SURGERY MAY BE CANCELLED IF YOU DO NOT HAVE A RESPONSIBLE ADULT TO TAKE YOU HOME. It is highly suggested youhave a responsible adult with you overnight after receiving anesthesia. ?? WEAR comfortable, loose fitting clothes to the hospital that will fit over dressings after your surgery. ?? WEAR GLASSES instead of contact lenses to the hospital; bring a case if possible for glasses, dentures, and hearing aids as you will be asked to remove these items before your surgery. ?? 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 DO NOT BRING VALUABLES or large amounts of donald with you to the hospital. ?? BRING any medical devices you need to the hospital, including remotes for stimulators, CPAP, BIPAP, or WOUND VAC machines. ?? Surgical times are estimates and can vary depending on numerous factors. ?? Expect a minimum post-op recovery of 1 hour. The medical staff will provide updates to family and/or friends as appropriate. ?? For surgical procedures, patient may be allowed two adult visitors. Special considerations may be allowed for pediatric patients under the age of 18 years. ?? Patient and any permitted visitor should arrive to the facility with a mask. If arriving to the facility without a mask, one will be provided. Special considerations may be allowed for pediatric patients under 2 years of age. ?? Patient will wear a mask from the time they enter the facility and will remain in a mask until they leave the facility. During your hospital stay you will receive a personal passcode to help protect your health information. This will be a number that you may share with anyone you choose to receive your protected health information (PHI). Family and friends will need to ask for you by name and use the passcode beforeyour care team can share information, either in person or by phone. Please ask those who have your passcode to protect it. ADVANCED PLANNING FOR MEDICATION USE CURRENT MEDICATION LIST Pre-Surgery Instructions Medication Instructions ??? rizatriptan (MAXALT) 5 mg Tablet, prn Continue taking as prescribed ??? erenumab-aooe (AIMOVIG) 70 mg/mL Auto-Injector, given x1 month Continue taking as prescribed ??? HYDROcodone-acetaminophen (NORCO) 5-325 mg tablet, 1 tab bid May take if necessary with sip of water morning of surgeryMay take if necessary with sip of water morning of surgery ??? ibuprofen (MOTRIN) 800 mg tablet Stop taking 1 week prior to surgery ??? lamoTRIgine (LaMICtal) 100 mg tablet, 350 mg bid Take morning of surgery with sip of water ??? calcium carbonate (TUMS ORAL) Do not take day of surgery ??? levETIRAcetam (KEPPRA) 2,000 mg tablet, bid Take morning of surgery with sip of water ??? primidone (MYSOLINE) 250 mg tablet bid Take morning of surgery with sip of water ??? traZODone (DESYREL) 100 mg Oral tablet, hs Take morning of surgery with sip of water ??? gabapentin (NEURONTIN) 600 mg Oral tablet, 61619 tid Take morning of surgery with sip of water ??? buPROPion SR 12 hour (WELLBUTRIN-SR) 150 mg Oral tablet Take morning of surgery with sip of water * Sabrina-OP - Annie Campos RN - 10/03/2021 12:50 PM CDT Images from the original note were not included. [facility] Routine Orders Protocol [facility] Approved by: [facility] - Medical Executive Committee Approval Date: 10/04/2020 ORDERS ARE ENTERED ???PER PROTOCOL?? Enter the protocol in the patient's electronic health record using smart phrase: .paceroutineordersprotocol [facility]/Anesthesiology Care Screening for Procedures ??? Laboratory exams obtained within 3 months prior to surgery are acceptable if normal, or at baseline. ??? Hematocrit/Hemoglobin (Pud3268) ??? Cases of expected major blood loss in patients of any age as evidenced by an order for Type andCross or Type and Screen. ??? PT/INR (Lab 320) should be drawn day of surgery ??? Patients taking Warfarin (Coumadin) or who have had Warfarin (Coumadin) discontinued within prior 7 days ??? BMP (Lab15) ??? Patients with: ??? Diabetes ??? Renal disease ??? Dialysis patients: Day of Surgery; If dialysis on day of surgery, Post-dialysis ??? Patients taking the following medications: - Digoxin - Diuretics - Steroids ??? BUN (Gpt546)/ Serum Cr (Lab66) ??? When use of intravenous contrast dye is planned ??? Liver function panel (Lab20) in any patient with: ??? Jaundice, or active liver disease ??? HgbA1c: If result not available from within 3 months of [facility] phone or in- person contact, for patients that meet the following conditions: ??? Planned operation is an orthopedic or neurosurgical implant, AND ? ? Either a hx of diabetes or a BMI >35 ??? EKG (EKG) 12 lead EKG- obtained within the last 3 months for the following: ??? Known cardiac disease (CAD, CHF, moderate or worse valvular disease ??? Patients undergoing cardiac, thoracic, or vascular surgery ??? CIED ??? Cardiac Symptoms: Angina, dysrhythmia, palpitations, SOB, PND, S3 ??? Moderate or greater risk surgery with any of the following: Stroke/TIA/CVD, PAD/PVD, CKD (Cr>2), DM, or Drugs or toxins that alter conduction (e.g., digoxin, cocaine, MAOIs, antiarrhythmics, antipsychotics, TCAs) Blood Bank ? For surgical procedures, prepare blood per surgical Blood Bank process unless additional blood orblood products have been ordered by the provider, then follow provider order. *Additional testing maybe indicated based upon patient co-morbidities and planned procedure. Medication Orders ??? Unless otherwise ordered by a member of the [facility] Anesthesiology Staff. 1. STOP a. Seven (7) DAYS PRIOR TO SURGERY: the use of all vitamins, herbal supplements, and other alternative substances. b. Seven (7) DAYS PRIOR TO SURGERY: the use of any UNPRESCRIBED Aspirin, Excedrin and NSAIDs which include Motrin, Ibuprofen, Aleve, and Naprosyn. c. 24 HOURS PRIOR TO PLANNED ARRIVAL AT [facility]: use of angiotensin-converting enzyme (BEN) inhibitorand angiotensin receptor moise (ARB). 2. CONTINUE - on usual schedule and take medication day of surgery with sips of water to swallow a. Aspirin and NSAIDS unless specifically instructed by surgeon to discontinue. b. All prescription medicines on routine schedule as prescribed, unless instructed otherwise. documented in this encounter Miscellaneous Notes * Care Plan - Nettie Maguire - 11/28/2021 6:12 PM CDT Knowledge deficit related to post-discharge care Interventions: Assess learning needs and willingness to learn; give clear, concise explanations of the care required post-discharge; address patient/family questions and concerns; provide teaching asindicated Expected Outcome: Patient and/or family/significant other demonstrate(s) behaviors required for performance of activities enhancing recovery post-discharge Outcome Met: questions addressed * Care Plan - Madai Bunch RN - 11/28/2021 5:55 PM CDT Potential for pain related to surgical/procedural intervention Interventions: Assess level of pain/comfort utilizing verbal/nonverbal pain scales; assess culturalor spiritism indicators attached to pain; administer pain medications as prescribed; utilize non-pharmacologic pain control and comfort measures Expected Outcome: Patient demonstrates and reports adequate pain control Outcome Met: prn meds available, pain well controlled Potential for alteration in thermoregulatory, circulatory, respiratory fluid & electrolyte status Interventions: Perform ongoing physical assessment; maintenance of airway or mechanical ventilation; monitor level of consciousness; initiate safety measures; observe patient???s respiratory status and oxygen saturation; obtain measurements of ongoing hemodynamic parameters, cardiac rhythm, and temperature; monitor intake and output; inspect wound dressings and/or drain output; perform prescribedtherapeutic regimens, treatments and tests; document and/or communicate care given Expected Outcome: Patient will maintain functional status compatible with preoperative status Outcome Met: vss, normothermic, patient able to maintain O2 sats, no bleeding or hematoma from surgical site documented in this encounter Plan of Treatment Not on file documented as of this encounter Procedures Procedure Name Priority Date/Time Associated Diagnosis Comments CA OPEN TREATMENT TEMPOROMANDIBULAR DISLOCATION 11/28/2021 2:32 PM CDT [facility] [employer]. CLAIM # [id number] DENTAL IMPLANT INSERTION 11/28/2021 2:32 PM CDT [facility] [employer]. CLAIM # [id number] TEETH MULTIPLE EXTRACTION 11/28/2021 2:32 PM CDT [facility] [employer]. CLAIM # [id number] POC , URINE Routine 11/28/2021 1:10 PM CDT documented in this encounter Results * POC , URINE (11/28/2021 1:10 PM CDT) Pathologist [facility] HCG QUAL URINE Negative Negative 11/28/2021 1:10 PM CDT [facility] Urine 11/28/2021 1:10 PM CDT 11/29/2021 1:26 PM CDT Dylon Fung MD POINT OF CARE TESTIN G [facility]# [id number] [address] [place] [address] * (ABNORMAL) 2019 NOVEL CORONAVIRUS (COVID-19) PCR DETECTION (08/17/2021 10:18 AM TRAY ROOM WORKER) Pathologist [facility] COVID-19 PCR DETECTED( A) Not Detected 08/17/2021 5:07 PM TRAY ROOM WORKER [facility] PERFORMING LAB [facility] 08/17/2021 5:07 PM TRAY ROOM WORKER [facility] Upper Respiratory ENTIRE NASOPHARYNX / Unknown Collection / Unknown 08/17/2021 10:18 AM TRAY ROOM WORKER 08/17/2021 1:15 PM TRAY ROOM WORKER Narrative [facility] SERVICES - [facility] - 08/17/2021 5:07 PM TRAY ROOM WORKER This test has been authorized by the FDA under an Emergency Use Authorization for use by authorized laboratories.?? This test has been validated in accordance with the FDA's guidance regarding Coronavirus Disease-2019 testing.?? Optimum specimen types and timing for peak viral levels during infection have not been determined.?? A negative RT-PCR result does not rule out infection with the 2019-Novel Coronavirus. Dylon Fung MD MICROBIOLOGY - [facility] AL ORDERABLES [facility] - [facility] CLIA# [id number] [place] [address] documented in this encounter Visit Diagnoses Diagnosis Preop testing- Primary Preoperative examination, unspecified documented in this encounter Administered Medications Inactive Administered Medications - up to 3 most recent administrations Medication Order MAR Action Action Date Dose Rate Site fentaNYL PF (SUBLIMAZE) 50 mcg/mL injection 50 mcg 50 mcg, IV, POST-PROCEDURE Q 3 MINUTES PRN, 5 doses, Starting on Dhara 11/28/21 at 1644, Until Dhara 11/28/21 at 2140, Pain, Routine, PACU lactated ringers infusion IV, at 150 mL/hr, PRE-PROCEDURE CONTINUOUS, Starting on Dhara 11/28/21 at 1230, Until Dhara 11/28/21 at 2140, Routine Restarted 11/28/2021 5:51 PM CDT Continue from Pre-Op 11/28/2021 5:05 PM CDT 150 mL/hr New Bag 11/28/2021 1:02 PM CDT 150 mL/hr 150 mL/hr lactated ringers infusion IV, at 30 mL/hr, POST-PROCEDURE CONTINUOUS, Starting on Dhara 11/28/21 at 1700, Until Dhara 11/28/21 at 2140, Routine, PACU lidocaine 2 % (XYLOCAINE) injection 0.3 mL 0.3 mL, Infiltration, PRE-PROCEDURE ONCE, Starting on Dhara 11/28/21 at 1225, Until Dhara 11/28/21 at 2140, Routine morphine 4 mg/mL injection 2 mg 2 mg, IV, POST-PROCEDURE Q 5 MINUTES PRN, 10 doses, Starting on Dhara 11/28/21 at 1644, Until Dhara 11/28/21 at 2140, Pain, Routine, PACU naloxone (NARCAN) 0.4 mg/mL injection 0.1 mg 0.1 mg, IV, SEE ADMIN INSTRUCTIONS, Starting on Dhara 11/28/21 at 1644, Until Dhara 11/28/21 at 2140, Routine, PACU ondansetron (ZOFRAN) 4 mg/2 mL injection 4 mg 4 mg, IV, POST-PROCEDURE ONCE PRN, 1 dose, Starting on Dhara 11/28/21 at 1644, Until Dhara 11/28/21 at 1803, Nausea/Emesis, Routine, PACU Given 11/28/2021 6:03 PM CDT 4 mg oxyCODONE-acetaminophen (PERCOCET) 5-325 mg per tablet 1 Tablet 1 Tablet, Oral, ONE TIME PRN, 1 dose, Starting on Dhara 11/28/21 at 1637, Until Dhara 11/28/21 at 2140, Pain, Routine prochlorperazine (COMPAZINE) injection 5 mg 5 mg, IV, POST-PROCEDURE ONCE PRN, 1 dose, Starting on Dhara 11/28/21 at 1644, Until Dhara 11/28/21 at 2140, Nausea/Emesis, Routine, PACU documented in this encounter Active and Recently Administered Medications Times are shown in CDT. Scheduled Medication Order 11/26/2021 11/27/2021 11/28/2021 ceFAZolin in sterile water (ANCEF) 2 gram/20 mL IV Syringe (PREMIX) 2,000 mg (COMPLETED) 2,000 mg, IV, PRE-PROCEDURE ONCE, 1 dose, Starting on Dhara 11/28/21 at 1225, Until Dhara 11/28/21 at 1726, Routine, Antibiotic Indication: Surgical prophylaxis 172 (Given - Provid er: ABRAN Seaman)172 (Stopped - Provider: ABRAN Seaman) lidocaine 2 % (XYLOCAINE) injection 0.3 mL 0.3 mL, Infiltration, PRE-PROCEDURE ONCE, Starting on Dhara 11/28/21 at 1225, Until Dhara 11/28/21 at 2140, Routine naloxone (NARCAN) 0.4 mg/mL injection 0.1 mg 0.1 mg, IV, SEE ADMIN INSTRUCTIONS, Starting on Dhara 11/28/21 at 1644, Until Dhara 11/28/21 at 2140, Routine, PACU Continuous Medication Order 11/26/2021 11/27/2021 11/28/2021 lactated ringers infusion IV, at 150 mL/hr, PRE-PROCEDURE CONTINUOUS, Starting on Dhara 11/28/21 at 1230, Until Dhara 11/28/21 at 2140, Routine 1302 (New Bag - Prov ider: Cassie Dao RN)1705 (Continue from Pre-Op - Provider: ABRAN Seaman)1750 (Paused - Provider: ABRAN Seaman - Comment: Switch to gravity)1751 (Restarted - Provider: ABRAN Seaman) lactated ringers infusion IV, at 30 mL/hr, POST-PROCEDURE CONTINUOUS, Starting on Dhara 11/28/21 at 1700, Until Dhara 11/28/21 at 2140, Routine, PACU 1700 (Due) PRN Medication Order 11/26/2021 11/27/2021 11/28/2021 fentaNYL PF (SUBLIMAZE) 50 mcg/mL injection 50 mcg 50 mcg, IV, POST-PROCEDURE Q 3 MINUTES PRN, 5 doses, Starting on Dhara 11/28/21 at 1644, Until Dhara 11/28/21 at 2140, Pain, Routine, PACU lidocaine-EPINEPHrine (XYLOCAINE-EPI) 1 %-1:100,000 injection (CANCELED) INTRA-PROCEDURE PRN, Starting on Dhara 11/28/21 at 1742, Until Dhara 11/28/21 at 1751, Routine, Intra-op 1742 (Given - Provid er: Dylon Fung MD) morphine 4 mg/mL injection 2 mg 2 mg, IV, POST-PROCEDURE Q 5 MINUTES PRN, 10 doses, Starting on Dhara 11/28/21 at 1644, Until Dhara 11/28/21 at 2140, Pain, Routine, PACU ondansetron (ZOFRAN) 4 mg/2 mL injection 4 mg (COMPLETED) 4 mg, IV, POST-PROCEDURE ONCE PRN, 1 dose, Starting on Dhara 11/28/21 at 1644, Until Dhara 11/28/21 at 1803, Nausea/Emesis, Routine, PACU 1803 (Given - Provid er: Madai Bunch RN) oxyCODONE-acetaminophen (PERCOCET) 5-325 mg per tablet 1 Tablet 1 Tablet, Oral, ONE TIME PRN, 1 dose, Starting on Dhara 11/28/21 at 1637, Until Dhara 11/28/21 at 2140, Pain, Routine prochlorperazine (COMPAZINE) injection 5 mg 5 mg, IV, POST-PROCEDURE ONCE PRN, 1 dose, Starting on Dhara 11/28/21 at 1644, Until Dhara 11/28/21 at 2140, Nausea/Emesis, Routine, PACU sodium chloride 0.9 % irrigation solution (CANCELED) INTRA-PROCEDURE PRN, Starting on Dhara 11/28/21 at 1730, Until Dhara 11/28/21 at 1751, Routine, Intra-op 1730 (Given - Provid er: Dylon Fung MD - Comment: prn irrigation) documented in this encounter Care Teams Flatbed Driver Relationship Specialty Start Date End Date Davi Georges MD [address] [place], [place] [address] [address] PCP - General Family Practice 08/14/21 documented as of this encounter
--- OUTSIDE RECORDS SUMMARY | 2024-07-16 13:00 | XMS_ITS | Encounter Summary ---
Author Organization [facility] Address [address] [place] [address] Care Team Providers Care Remote Medical Coder Name Role Phone Davi Georges MD Primary Care Provider [phone] Encounter Details Date Type Department Care Team (Latest Contact Info) Description 08/14/2021 10:39 AM AREA COORDINATOR - 08/14/2021 11:59 PM [facility] Hospital Encounter [facility] [address] [place] [id number] Dylon Fung MD [address] [address] Discharge Disposition: Home or Self Care Anesthesia Record Procedure Summary Procedure Name Responsible Anesthesiologist Anesthesia Start Time Anesthesia Stop Time TEETH MULTIPLE EXTRACTION (Mouth) Mohit Muñoz MD 11/28/21 1705 11/28/21 1755 Events Date Time Event Comment 11/28/2021 1620 AN Equip Check Anesthesia eq uipment and materials checked in accordance with local policy. 1642 Intended Opioids 1643 1705 An Start 1709 In Room This event disp lays the In Room time documented in the Surgical Log. Deleting this event will not remove it from the log but will remove it from the Grid and Graph timeline. 1710 An Start Data 1710 Pre-Induction Immediate pre- induction anesthetic assessment performed. Vital signs as noted on graphic. 1714 An Induction 1716 An Intubation 1717 Anesthesia Ready 1724 Procedure Start This event d isplays the Procedure Start time documented in the Surgical Log. Deleting this event will not remove it from the log but will remove it from the Grid and Graph timeline. 1740 Throat Pack Removed 174 Procedure Stop This event di splays the Procedure Stop time documented in the Surgical Log. Deleting this event will not remove it from the log but will remove it from the Grid and Graph timeline. 1747 An Extubation Emergence unev entful Awake, spontaneous respirations. Adequate muscle strength demonstrated Adequate tidal volume. Orapharynx suctioned. Extubated with positive pressure ventilation. 1749 an stop data 175 Out of Room This event disp lays the Out of Room time documented in the Surgical Log. Deleting this event will not remove it from the log but will remove it from the Grid and Graph timeline. 1755 An Stop 175 Hand-off to [facility] Post-Anesthetic transfer of care report elements to appropriate post-anesthesia recovery environment completed in accordance with procedure. 1755 Patient Comfortable Meds * Agents No agents on file. * Blood No blood administrations on file. Lines, Drains, and Airways Type Details Placement Removal Wound 08/13/12; No; 1; Lef t:; ear; surgical wound; 11/28/21; 193208/13/12 0000 by Serafin Rodriguez RN 11/28/211932 by Nettie Maguire Wound 11/03/12; 1238; No; 1; Left:; ear; surgical wound; 11/28/21; 193311/03/12 1238 by Heather Bashir RN 11/28/211933 by Nettie Maguire Wound 11/03/12; 1402; No; 2; Left:; face; surgical wound; 11/28/21; 193311/03/12 1402 by Heather Bashir RN 11/28/211933 by Nettie Maguire Peripheral IV Pre-Hospital Start: No; Orientation: Left; Location: Hand; Device: Angiocath; Gauge: 20 gauge; Insertion Attempts: 1; Patient Tolerance: tolerated well; Pain Prevention: intradermal injection 11/28/21 1301 by Cassie Dao RN 11/28/211932 by Nettie Maguire Endotracheal Airway Type: ETT; Size: 7; Attempts: 1; Verification: Auscultated bilateral breath sounds, Equal chest movement, Continuous waveform capnography 11/28/21 1716 by Ash Campbell AA-C 11/28/21 1747 by Ash Campbell AA-C Incision 11/28/21; 1732; surgical incision; other (comment); gum; 11/29/21; 0739 11/28/21 1732 by Kenji Santizo RN 11/29/21 0739 by PROVIDER, DISCHARGE PATIENT documented in this encounter Social History Tobacco [...] have Coronavirus / COVID-19? No / Unsure 08/14/2021 10:35 AM AREA COORDINATOR documented as of this encounter Last Filed Vital Signs Vital Sign Reading Time Taken Comments Blood Pressure 112/80 08/14/2021 11:29 AM AREA COORDINATOR Pulse 75 08/14/2021 11:29 AM AREA COORDINATOR Temperature - - Respiratory Rate - - Oxygen Saturation 95% 08/14/2021 11:29 AM AREA COORDINATOR Inhaled Oxygen Concentration - - Weight 105.7 kg (233 lb) 08/14/2021 11:29 AM AREA COORDINATOR Height 163.2 cm (5' 4.25 ) 08/14/2021 11:29 AM C Body Mass Index 39.68 08/14/2021 11:29 AM AREA COORDINATOR documented in this encounter Medications at Time of Discharge Medication Sig Dispensed Refills Start Date End Date rizatriptan (MAXALT) 5 mg Tablet Take 5 mg by mouth every 2 hours as needed for Migraine. may repeat in 2 hours; max dose 30mg in 24 hours erenumab-aooe (AIMOVIG) 70 mg/mL Auto-Injector Inject 70 mg by subcutaneous injection one time only. 1st- (one of these days) of each month [...] 150 mg by mouth 2 times daily. HYDROcodone-acetamino phen (NORCO) 5-325 mg tablet Take 1 Tablet by mouth 2 times daily. TAKES 1 EXTRA ONE DAILY ON OCCASION 11/28/2021 documented as of this encounter OR Notes * Anesthesia PAT Evaluation - Lamine Paez MD - 08/14/2021 11:30 AM AREA COORDINATOR Pre-Procedure Anesthesiology Consultation and Evaluation (PACE) Service 08/14/2021 12:00 PM Name: Kalya Avila Age: 46 y.o. Sex: female CSN: [id number] Case: [id number] Date/Time: 08/21/21 1348 Procedures: ?TEETH MULTIPLE EXTRACTION (N/A Mouth) [44919 CPT(R)] - TEETH EXTRACTION #'S 15, 19 ?DENTAL IMPLANT INSERTION (N/A Mouth) [94923 CPT(R)] - # 19 ?MANDIBULAR OPEN REDUCTION INTERNAL FIXATION (N/A Face) [47619 CPT(R)] - ACTUAL: MOBILIZATIONUNDER ANESTHESIA, REQ 12PM-AFTER, *DENNYS* Anesthesia type: General Pre-op diagnosis: TRISMUS Location: [facility] OR ADD ON 1 / [facility] OR MAIN Surgeons: Dylon Fung MD Allergies Allergen Reactions ??? Adhesive Tape-Silicones Hives ??? Erythromycin Seizure, Hallucination and Other (See Comments) Neuro problems Seizure as a baby Reaction: Neuro problems, , ??? Silicone Hives ??? Unclassified Drug Swelling ALLERGY TO URINARY CATHETERS Current Outpatient Medications Medication Sig Dispense Refill ??? erenumab-aooe (AIMOVIG) 70 mg/mL Auto-Injector Inject 70 mg by subcutaneous injection one time only. - (one of these days) of each month ??? HYDROcodone-acetaminophen (NORCO) 5-325 mg tablet Take 1 Tablet by mouth 2 times daily. TAKES 1EXTRA ONE DAILY ON OCCASION ??? lamoTRIgine (LaMICtal) 100 mg tablet Take 350 mg by mouth 2 times daily . ??? calcium carbonate (TUMS ORAL) Take by mouth 1 time daily as needed. ??? levETIRAcetam (KEPPRA) 1,000 mg tablet Take 2,000 mg by mouth 2 times daily . ??? primidone (MYSOLINE) 50 mg tablet Take 50 mg by mouth daily at bedtime. ??? pantoprazole (PROTONIX) 40 mg Tablet, Delayed Release (E.C.) Take 40 mg by mouth daily. ??? traZODone (DESYREL) 100 mg Oral tablet Take 100 mg by mouth daily at bedtime. ??? gabapentin (NEURONTIN) 600 mg Oral tablet Take 1,200 mg by mouth 3 times daily. ??? docusate sodium (COLACE) 100 mg capsule Take 1 Capsule (100 mg) by mouth 2 times daily. 20 Capsule 0 ??? ibuprofen (MOTRIN) 800 mg tablet Take 1 Tablet (800 mg) by mouth every 8 hours. 30 Tablet 0 ??? buPROPion SR 12 hour (WELLBUTRIN-SR) 150 mg Oral tablet Take 150 mg by mouth 2 times daily. No current facility-administered medications for this encounter. Advised pt to take the following medications AM DOS: Advised pt to stop the following medications on : Medication Instructions ??? erenumab-aooe (AIMOVIG) 70 mg/mL Auto-Injector Do not take day of surgery ? HYDROcodone-acetaminophen (NORCO) 5-325 mg tablet Continue taking as prescribed ? lamoTRIgine (LaMICtal) 100 mg tablet Continue taking as prescribed ? calcium carbonate (TUMS ORAL) Stop taking 1 week prior to surgery ? levETIRAcetam (KEPPRA) 1,000 mg tablet Continue taking as prescribed ? primidone (MYSOLINE) 50 mg tablet Continue taking as prescribed ? pantoprazole (PROTONIX) 40 mg Tablet, Delayed Release (E.C.) Continue taking as prescribed ? traZODone (DESYREL) 100 mg Oral tablet Continue taking as prescribed ? gabapentin (NEURONTIN) 600 mg Oral tablet Continue taking as prescribed Patient Active Problem List Diagnosis Date Noted ??? Acute cholecystitis 11/27/2018 ??? Seizure disorder ??? Major depressive disorder ??? TMJ disease Past Medical History: Diagnosis Date ??? Anxiety ??? Arthritis left jaw ??? CAD (coronary artery disease) ??? Depression ??? Difficult intravenous access ??? Difficult intubation small mouth opening, hx jaw surgery ??? Disorder of jaw JAWS WIRED SHUT ??? Endometriosis 2013 ??? GERD (gastroesophageal reflux disease) ??? Headache(784.0) Migraines related to left jaw ??? Heart attack 2010 MD ??? History of complications due to general [...] LEFT SIDE ??? Seizure disorder DX 04/2014 FAINTING SEIZURE, GRAND MAL - LAST SEIZURE 05/2014, PETIT MAL , MUSCLE TWITCHING - TOTAL 80-90 SEIZURES DAILY ??? Temporomandibular joint disorder LEFT SIDE ??? Temporomandibular joint disorders, unspecified ??? Unspecified adverse effect of anesthesia Wakes during surgery, reports cardiac arrest 2007 - MANDIBLE ARTHPOPLATY SURGERY ??? Vertigo Past Surgical History: Procedure Laterality Date ??? DILATION AND CURETTAGE 04/10/15 ??? HX CRANIOFACIAL RECONSTRUCTION Left 06/17/2018 ORALMAXILLOFACIAL DEVICE REMOVAL performed by Dylon Fung MD at [facility] OR [facility] ??? HX CRANIOFACIAL RECONSTRUCTION N/A 08/11/2018 ORALMAXILLOFACIAL DEVICE REMOVAL LT. MANDIBLE HARDWARE performed by Dylon Fung MD at [facility] OR [facility] ??? HX CRANIOFACIAL RECONSTRUCTION N/A 01/12/2019 ORALMAXILLOFACIAL DEVICE REMOVAL performed by Dylon Fung MD at [facility] OR [facility] ??? HX TUBAL LIGATION 04/10/15 ??? HX VAGINAL DELIVERY 09/19/1993 ??? HX WISDOM TEETH EXTRACTION TEEN ??? WV ARTHROPLASTY TMJ+PROSTHESIS N/A 11/03/2018 TEMPOROMANDIBULAR JOINT PROSTHETIC PLACEMENT performed by Dylon Fung MD at [facility] OR [facility] ??? WV EXC SKIN BENIG 0.6-1CM TRUNK,ARM,LEG 08/13/2012 CYST LESION MASS EXCISION performed by Kraig Gabriel MD at [facility] OR [facility] ??? [place] EXC SKIN BENIG 0.6-1CM TRUNK,ARM,LEG 09/15/2012 CYST LESION MASS EXCISION performed by Kraig Gabriel MD at [facility] OR [facility] ??? [place] EXC SKIN BENIG 0.6-1CM TRUNK,ARM,LEG Left 06/17/2018 CYST LESION MASS EXCISION performed by Kraig Gabriel MD at [facility] OR [facility] ??? WV LAP,CHOLECYSTECTOMY N/A 11/27/2018 CHOLECYSTECTOMY LAPAROSCOPIC POSS OPEN performed by Ignacio Frost MD at [facility] OR [facility] ??? WV MYRINGOPLASTY Left 06/17/2018 MYRINGOPLASTY performed by Kraig Gabriel MD at [facility] OR [facility] ??? WV NERVOUS SYSTEM SURGERY UNLISTED N/A 11/03/2018 STEROID INJECTION performed by Dylon Fung MD at [facility] OR [facility] ??? WV PREP FACE/ORAL PROST UNLISTED 06/17/2018 TEMPOROMANDIBULAR JOINT PROSTHETIC REMOVAL performed by Dylon Fung MD at [facility] OR [facility] ??? W[place] RECONSTR JAW,FULL,ENDO IMPLNT from 2000 to 2019 total of [address] Dylon Fung ??? [place] REMOVAL SUPERFICIAL IMPLANT 11/03/2012 HARDWARE REMOVAL performed by Dylon Fung MD at [facility] OR [facility] ??? [place] REMV EXT CANAL SOFT TISSUE LESN 11/03/2012 AURICULAR CYST LESION MASS EXCISION performed by Dylon Fung MD at [facility] OR [facility] Social History Tobacco Use ??? Smoking status: Former Smoker Packs/day: 0.25 Years: 15.00 Pack years: 3.75 Types: Cigarettes Quit date: 06/08/2018 Years since quittin.1 ??? Smokeless tobacco: Never Used ??? Tobacco comment: OFF AND ON Substance Use Topics ??? Alcohol use: No Alcohol/week: 0.0 standard drinks No family history on file. Previous Anesthesia Problems/Concerns: Wakes during surgery, reports cardiac arrest 2007. states she flatlined x 2 in 2007 d/t bleeding intra-op; Has had >40 surgeries - MANDIBLE ARTHPOPLATY SURGERY H/O difficult intubation History of PONV No Multiple procedures here and has done well. Patient will tell you where to put an IV. Difficult IV access Anes record Dr. Barrow January 12, 2019 Type: ETT, Oral (easy MV); Cuff Pressure: minimal leak technique, minimal occluding volume, cuff inflated; Size: 6; Site: mouth; Attempts: 2 (1st look with mil 2- able to visualize epiglottis but notable to lift; 2nd look with glidescope 3- successful); cm: 20; Device: Straight Blade, Video Laryngoscope; Blade: 3 (glidescope cover size 3); Secured: secured with tape; Verification: Auscultated bilateral breath sounds, Equal chest movement, Continuous waveform capnography Review of Systems Cardiovascular: Patient relates had an EKG done in 2008, It showed I had a heart attack. . They was no interventions, no cardiac cath, no treatment. No CP No SOB EKG 2019 was NSR Followed by PMD Respiratory: negative,Snoring - No, DENNYS -Yes Gastrointestinal: GERD Genitourinary:negative. Musculoskeletal: negative Neurological: Seizures Gran Mals, last one 2013. Has daily, staring spells Patient does not drive 2/2 seizures Migraines Patient moves right side of face better than left 2/2 hardware in left mandible Endocrine negative Hepatic negative Exercise tolerance able to go up two flights of stairs w/o cp Tobacco negative TRISMUS PHYSICAL EXAM BP 112/80 (BP Location: Right arm, Patient Position (BP): Sitting) Pulse 75 Ht 5' 4.25 (1.632 m) Wt 105.7 kg (233 lb) LMP 07/20/2021 SpO2 95% BMI 39.68 kg/m?? Weight: Weight: 105.7 kg (233 lb) (08/14/21 1129) Height: Ht Readings from Last 1 Encounters: 08/14/21 5' 4.25 (1.632 m) BMI: Body mass index is 39.68 kg/m??. General Appearance: Alert, oriented, no acute distress Airway: normal range of motion; Airway Class: III (soft palate, base of uvula visible); Special Considerations None Dentition: chipped/cracked teeth, loose teeth and missing teeth Lungs: clear to auscultation bilaterally, normal respiratory effort Heart: regular rate and rhythm, S1, S2 normal, no murmur, click, rub or gallop Neuro: alert, oriented x 3, Moves right side of face better than the left Extremities: extremities normal, atraumatic, no cyanosis or edema LABS Lab Results Component Value Date WBC 4.9 11/27/2018 HGB 11.8 11/27/2018 HCT 34.6 (L) 11/27/2018 PLT 201 11/27/2018 MCV 97.7 11/27/2018 Lab Results Component Value Date NA 138 11/27/2018 K 3.5 11/27/2018 CL 103 11/27/2018 CO2 24 11/27/2018 CA 8.7 11/27/2018 BUN 3 (L) 11/27/2018 CREAT 0.70 06/04/2021 CREAT 0.55 11/27/2018 GLUCOSE 90 11/27/2018 ANIONGAP 11 11/27/2018 No results found for: INR, PT, PROTIMEPOC Lab Results Component Value Date HCGURPOC Negative 11/03/2012 HCGQUALUR Negative 01/12/2019 EKG November 25, 2018 Normal EKG Other Studies/Considerations: None Risks/Alternatives discussed. Questions solicited and answered. Yes Postop pain management discussed no Smoking/Tobacco Counseling: None Recommendations:DENNYS precautions, Potential difficult intubation or Potential difficult intravenous access ATTESTATIONS (Not in a hospital admission) I obtained, updated or reviewed the patient's current medications including dosage, frequency, and route of administration. This information was obtained directly from the patient or risk control representative or caregiver or another available healthcare resource and updated in [employer] EMR. Social History Tobacco Use Smoking Status Former Smoker ??? Packs/day: 0.25 ??? Years: 15.00 ??? Pack years: 3.75 ??? Types: Cigarettes ??? Quit date: 06/08/2018 ??? Years since quittin.1 Smokeless Tobacco Never Used Tobacco Comment OFF AND ON Patient screened for tobacco use and identified as a Non-User of tobacco. REPORT AND NECESSARY FOLLOW-UP History and physical performed in PACE; tests (ECG, blood work) reviewed. Abnormal Results Found: no Further Testing or Evaluation Required: no Final [facility] Center Review: May proceed with procedure/surgery: yes MADONNA Barrios, 08/14/2021 12:13 PM I, Lamine Paez MD, attest that I have reviewed the Advanced Practitioner's note - including the history, documented findings, assessment, and plan. I agree with the plan as documented except where noted. Lamine Paez MD COORDINATOR * Sabrina-OP - Steph Gomez RN - 08/14/2021 11:30 AM CST Images from the original note were not included. [facility]ACE Routine Orders Protocol [facility] Approved by: [facility] - Medical Executive Committee Approval Date: 10/04/2020 ORDERS ARE ENTERED ???PER PROTOCOL?? Enter the protocol in the patient's electronic health record using smart phrase: .paceroutineordersprotocol PACE/Anesthesiology Care Screening for Procedures ??? Laboratory exams obtained within 3 months prior to surgery are acceptable if normal, or at baseline. ??? Hematocrit/Hemoglobin ([id number]) ??? Cases of expected major blood loss [...] Digoxin - Diuretics - Steroids ??? BUN (Xrl969)/ Serum Cr (Lab66) ??? When use of [...] otherwise ordered by a member of the [facility] Anesthesiology Staff. 1. STOP a. Seven (7) DAYS PRIOR TO SURGERY: the use of all vitamins, herbal supplements, and other alternative substances. b. Seven (7) DAYS PRIOR TO SURGERY: the use of any UNPRESCRIBED Aspirin, Excedrin and NSAIDs which include Motrin, Ibuprofen, Aleve, and Naprosyn. c. 24 HOURS PRIOR TO PLANNED ARRIVAL AT [facility]: use of angiotensin-converting enzyme (BEN) inhibitorand angiotensin receptor moise (ARB). 2. CONTINUE - on usual schedule and take medication day of surgery with sips of water to swallow a. Aspirin and NSAIDS unless specifically instructed by surgeon to discontinue. b. All prescription medicines on routine schedule as prescribed, unless instructed otherwise. COORDINATOR * Sabrina-OP - Steph Gomez RN - 08/14/2021 11:30 AM CST [facility] Pre-Procedure Instructions PACE PACE Name: Kayla Avila Age: 46 y.o. Please report to the: [facility] Date of Procedure: 08/21/2021 Date of COVID Test: [facility] [address] [place] [address] ([phone]) Arrive at the time your surgeon's office [...] surgery. ?? 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 DO NOT BRING [...] For surgical procedures, patient may be allowed ONE adult visitors. Special considerations may be allowed for pediatric patients under the age of 18 years. ?? Patient and any permitted visitor should arrive to the facility with a mask. If arriving to the facility without a mask, one will be provided. Special considerations may be allowed for pediatric patients under 2 years of age. ?? Patient and visitor will go through facility entry screening. ?? Patient will wear a mask from [...] who have your passcode to protect it. Obstructive Sleep Apnea Obstructive sleep apnea is a common and serious sleep disorder that causes you to stop breathing during sleep. The airway repeatedly becomes blocked, limiting the amount of air that reaches your lungs. When this happens, you may snore loudly or make choking noises as you try to breathe. Your brain and body becomes oxygen deprived and you may wake up. This may happen a few times a night, or in more severe cases, several hundred times a night. Sleep apnea can make you wake up in the morning feeling tired or unrefreshed even though you have had a full night of sleep. During the day, you may feel fatigued, have difficulty concentrating or you may even unintentionally fall asleep. This is because your body is waking up numerous times throughout the night, even though you might not be conscious of each awakening. The lack of oxygen your body receives can have negative long-term consequences for your health. This includes: ?? High blood pressure ?? Heart disease including heart attack, abnormal heart rhythms and heart failure ?? Stroke ?? Pre-diabetes and diabetes ?? Depression, memory problems ?? Drowsy driving and car accidents You were screened for Obstructive Sleep Apnea (DENNYS) using the STOP-BANG scale. Sleep Apnea may impact your health during and after your anesthesia. Just as importantly, undiagnosed or untreated DENNYS can have a negative impact on your overall health. Your screening indicates that you are: History of DENNYS. Based on your history we will use best practices to ensure your safety during and after your procedure.??If you use a CPAP or BiPAP please bring it with you the day of surgery. ADVANCED PLANNING FOR MEDICATION USE STOP unprescribed NSAIDS and ASPIRIN 1 week prior to surgery. Ok to take Tylenol as needed for mildpain up to day of surgery. STOP unprescribed vitamins and supplements 1 week prior to surgery. CURRENT MEDICATION LIST Pre-Surgery Instructions Medication Instructions ??? erenumab-aooe (AIMOVIG) 70 mg/mL Auto-Injector Do not take day of surgery ??? HYDROcodone-acetaminophen (NORCO) 5-325 mg tablet Continue taking as prescribed ??? lamoTRIgine (LaMICtal) 100 mg tablet Continue taking as prescribed ??? calcium carbonate (TUMS ORAL) Stop taking 1 week prior to surgery ??? levETIRAcetam (KEPPRA) 1,000 mg tablet Continue taking as prescribed ??? primidone (MYSOLINE) 50 mg tablet Continue taking as prescribed ??? pantoprazole (PROTONIX) 40 mg Tablet, Delayed Release (E.C.) Continue taking as prescribed ??? traZODone (DESYREL) 100 mg Oral tablet Continue taking as prescribed ??? gabapentin (NEURONTIN) 600 mg Oral tablet Continue taking as prescribed COORDINATOR documented in this encounter Plan of Treatment Not on file documented as of this encounter Procedures Procedure Name Priority Date/Time Associated Diagnosis Comments BASIC METABOLIC PANEL Routine 08/14/2021 11:58 AM AREA COORDINATOR documented in this encounter Results * BASIC METABOLIC PANEL (08/14/2021 11:58 AM AREA COORDINATOR) SODIUM 136 136 - 145 mmol/L 08/14/2021 12:55 PM AREA COORDINATOR [employer] LABORATORY [facility] - . [facility] POTASSIUM 4.4 3.5 - 5.0 mmol/L 08/14/2021 12:55 PM AREA COORDINATOR [employer] [facility]ATORY [facility] - . [facility] CHLORIDE 104 98 - 107 mmol/L 08/14/2021 12:55 PM AREA COORDINATOR [employer] [facility] - [facility] CO2 24 22 - 29 mmol/L 08/14/2021 12:55 PM AREA COORDINATOR [employer] [facility] - . [facility] CALCIUM 8.7 8.6 - 10.2 mg/dL 08/14/2021 12:55 PM AREA COORDINATOR [employer] [facility] - [facility] BUN 8 6 - 20 mg/dL 08/14/2021 12:55 PM AREA COORDINATOR [employer] LABORATORY SERVICES - . [facility] CREATININE 0.69 0.51 - 0.95 mg/dL 08/14/2021 12:55 PM AREA COORDINATOR [employer] [facility] - . [facility] GLUCOSE 87 74 - 99 mg/dL 08/14/2021 12:55 PM AREA COORDINATOR [employer] [facility]ATORY [facility] - . [facility] GFR >60 >=60 mL/min/1.7 3 sq meter 08/14/2021 12:55 PM AREA COORDINATOR [employer] [facility]ORATORY SERVICES - [facility] Comment: eGFR calculated with 2020 CKD-EPI equation. ??Vegetarian diet, extremely high or low muscle mass, and may affect results. ??Cystatin C with Glomerular Filtration Rate is a suitable alternative for these patients. The National Kidney Foundation and the [place] Society of Nephrology (NKF-ASN) recommends using the 202 CKD Epidemiology Collaboration (CKD-EPI) equation to calculate estimated glomerular filtration rate (eGFR). This equation is only applicable to [place] adult patients and removes race as a variable. ??Due to the variation of creatinine in different conditions, they recommend use of confirmatory tests such as eGFR from cystatin C or creatinine-cystatin GFR estimating equations, or direct measurement of clearance of an exogenous filtration marker in critical clinical decisions including but not limited to drug dosing, surgery, chemotherapy, and transplant referral. ANION GAP 8 8 - 16 mmol/L 08/14/2021 12:55 PM AREA COORDINATOR [facility] LABORATORY [facility] Blood Venipuncture / Unknown 08/14/2021 11:58 AM AREA COORDINATOR 08/14/2021 12:20 PM AREA COORDINATOR [place] CHEMISTRY O RDERABLES [facility] CLIA# [id number] [address] [place] [address] documented in this encounter Visit Diagnoses Not on filedocumented in this encounter Care Teams Remote Medical Coder Relationship Specialty Start Date End Date Davi Georges MD [address] [place] [phone] PCP - General Family Practice 08/14/21 documented as of this encounter
--- OUTSIDE RECORDS SUMMARY | 2024-07-16 13:00 | XMS_ITS | Encounter Summary ---
Author Organization [facility] Address [address] [place]: Epic Prelude ADT [place] GR[place]OM [id number] Care Team Providers Care Fund Development Manager Name Role Phone Davi Georges MD Primary Care Provider [phone] Encounter Details Date Type Department Care Team (Latest Contact Info) Description 10/03/2021 Travel Social History Tobacco Use Types Packs/Day [...] have Coronavirus / COVID-19? No / Unsure 10/03/2021 12:13 PM CDT documented as of this encounter Plan of Treatment Not on file documented as of this encounter Visit Diagnoses Not on filedocumented in this encounter Care Teams Fund Development Manager Relationship Specialty Start Date End Date Davi Georges MD [facility] [place] [phone] PCP - General Family Practice 08/14/21 documented as of this encounter
--- OUTSIDE RECORDS SUMMARY | 2024-07-16 13:00 | XMS_ITS | Encounter Summary ---
Author Organization [facility] Address [address] [place] [address] Care Team Providers Care Psychologist Counseling Name Role Phone Davi Georges MD Primary Care Provider [phone] Reason for Visit * Auth/Cert Specialty Diagnoses / Procedures Referred By Contac t Referred To Contact Diagnoses TRISMUS Procedures DC OPEN REDUCTN TEM-MANDIBLE DISLOC DC OPEN REDUCTN TEM-MANDIBLE DISLOC DC REM IMP TOOTH W MUCOPER FLP DC ODONTICS ENDOSTEAL IMPLANT Dylon Fung MD [address] [place] [address] [address] [place] [address] Referral ID Status Reason Start Date Expiration Date Visits Re quested Visits Authorized [id number] 07/11/2021 1 1 Encounter Details Date Type Department Care Team (Late st Contact Info) Description 11/28/2021 5:05 PM CDT Anesthesia Event [facility] Operating Room [address] [place] [address] Mohit Muñoz MD [address] [place] [address] Everett Lion PA [address] [place] [address] Anesthesia Record Procedure Summary Procedure Name Responsible [...] and Graph timeline. 1740 Throat Pack Removed 1741 Procedure Stop This event di splays the Procedure Stop time documented in the Surgical Log. Deleting this event will not remove it from the log but will remove it from the Grid and Graph timeline. 1747 An Extubation Emergence unev entful Awake, spontaneous respirations. Adequate muscle strength demonstrated Adequate tidal volume. Orapharynx suctioned. Extubated with positive pressure ventilation. 1749 an stop data 1751 Out of Room This event disp lays the Out of Room time documented in the Surgical Log. Deleting this event will not remove it from the log but will remove it from the Grid and Graph timeline. 1755 An Stop 1755 Hand-off to Receiving [facility] fletcher Post-Anesthetic transfer of care report elements to appropriate post-anesthesia recovery environment completed in accordance with procedure. 1755 Patient Comfortable Meds Name Total midazolam PF (VERSED) 5 mg/mL injection 2.5 mg succinylcholine(PF)200 mg/10 mL(20 mg/mL )-NaCl,iso intravenous syringe 120 mg ceFAZolin in sterile water ( ANCEF) 2 gram/20 mL IV Syringe (PREMIX) 2,000 mg 2,000 mg propofol (DIPRIVAN) 10??mg/mL injection 259.78 mg fentaNYL (SUBLIMAZE) PF 50??mcg/mL injec tion 50 mcg dexamethasone (DECADRON) 4 mg/mL injecti on 8 mg famotidine (pf) (PEPCID) 20 mg/2 mL inje ction 20 mg ondansetron (ZOFRAN) 4??mg/2 mL injectio n 4 mg diphenhydrAMINE (BENADRYL) 50 mg/mL inje ction 12.5 mg HYDROmorphone (DILAUDID) 2 mg/mL injecti on 0.4 mg lactated ringers infusion 800 mL * Agents Name Sevoflurane % Sevoflurane O2 N2O Inspired N2O O2 * Blood No blood administrations on file. [...] PM CDT documented as of this encounter OR Notes * Anesthesia Postprocedure Evaluation - Jered Bailey MD - 11/28/2021 5:55 PM CDT Post Anesthesia Evaluation Vitals: Vitals Value Taken Time BP 114/64 11/28/211752 Temp 37 ??C 11/28/211752 Resp 21 11/28/211753 SpO2 100 % 11/28/211753 Pulse 78 11/28/211753 Heart Rate 77 bpm 11/28/211753 Vitals shown include unvalidated device data. Pain Rating: Anesthesia Post Evaluation No complications documented. Mohit Bailey MD Phase I Postanesthesia Evaluation Including Modified Archie Score Patient seen and evaluated: Modified Archie Score: Score: 8 (11/28/211753) COMMENTS: No apparent Anesthesia related complications RESPIRATORY FUNCTION: Respiration: able to breath and cough freely (11/28/211753) [2=able to breathe and cough freely, 1=dyspnea, limited breathing or tachypnea, 0=apnea or mechanicventilator] O2 Saturation: needs O2 inhalation to maintain O2 saturation greater than 90% (11/28/211753) [2=able to maintain O2 saturation greater than 92% on room air, 1=needs O2 inhalation to maintain O2 saturation greater than 90%, 0=O2 saturation less than 90% even with O2 supplement] Resp: 22 (11/28/211752)SpO2: 100 % (11/28/211752) CARDIOVASCULAR FUNCTION: Heart Rate: 79 bpm (11/28/211752) BP: 114/64 (11/28/211752) Circulation: BP within 20% of preanesthetic level (11/28/211753) [2=BP within 20% of preanesthetic level, 1=BP within 20-49% of preanesthetic level, 0=BP within 50%of preanesthetic level] MENTAL STATUS, NEURO, ACTIVITY: PATIENT PARTICIPATION IN EVALUATION:yes Consciousness: arousable on calling (11/28/211753) [2=fully awake, 1=arousable on calling, 0=not responding] Activity: able to move 4 extremities voluntarily or on command (11/28/211753) [2=able to move 4 extremities voluntarily or on command, 1=able to move 2 extremities voluntarily or on command, 0=unable to move extremities voluntarily or on command] TEMPERATURE: Temp: 37 ??C (11/28/211752) PAIN: NAUSEA AND VOMITING: no nausea and no vomiting POSTOPERATIVE HYDRATION: well hydrated Intake/Output Summary (Last 24 hours) at 11/28/20211754 Last data filed at 11/28/20211750 Gross per 24 hour Intake 800 ml Output -- Net 800 ml Mohit Bailey MD 11/28/2021 5:55 PM * Anesthesia Handoff - Ash Campbell, AA-C - 11/28/2021 5:55 PM CDT Post-Anesthetic transfer of care report elements to appropriate post-anesthesia recovery environment completed in accordance with procedure. I completed my handoff to the receiving nurse during which we: 1. Identified the patient 2. Identified the responsible provider 3. Reviewed the pertinent medical history 4. Discussed the surgical course 5. Reviewed intra-op anesthesia management and issues during anesthesia 6. Set expectations for post-procedure period 7. Orders as necessary and appropriate for continuation of care are present in Epic. 8. Allowed opportunity for questions and acknowledgement of understanding. Vital Signs: BP: 114/64 (11/28/2021 5:53 PM) Pulse: 79 (11/28/2021 5:53 PM) Heart Rate: 79 bpm (11/28/2021 5:53 PM) Temp: 37 ??C (11/28/2021 5:53 PM) Resp: 22 (11/28/2021 5:53 PM) SpO2: 100 % (11/28/2021 5:53 PM) 5:55 PM ABRAN Seaman * Anesthesia Procedure Notes - Mohit Muñoz MD - 11/28/2021 5:29 PM CDT Associated Order(s): Airway Airway Date/Time: 11/28/2021 5:16 PM Location: OR Plan: routine intubation Patient Identity Confirmed by: Verbally with patient and armband Airway: not difficult Performed by: AA: Ash Campbell AA-C Indications and Patient Condition: Indications for Airway Management: Anesthesia Preoxygenated: Yes Patient Position: Appropriate position w/cervical spine immobilization maintained throughout the procedure and sniffing Mask Difficulty Assessment: 1 - vent by mask Plan to extubate at end of case: Yes Final Airway Details: Final Airway Type: Endotracheal airway Final Endotracheal Airway: ETT Cuffed: Yes Technique Used for Successful ETT Placement: Video laryngoscopy Devices/Methods Used in Placement: Curved blade and video laryngoscope Insertion Site: Oral Laryngoscope Blade/Videolaryngoscope Blade Size: 3 ETT Size (mm): 7.0 Reason for advanced technique: Intraoperative decision Measured from: Lips ETT to Lips (cm): 21 Tube secured with: Tape Placement Verified by: auscultation, end tidal CO2 and chest rise Cormack-Lehane Classification: Grade I - full view of glottis Number of Attempts at Approach: 1 Additional Comments: Atraumatic ETT insertion * Anesthesia Procedure Notes - Mohit Muñoz MD - 11/28/2021 5:28 PM CDT Associated Order(s): Airway Airway Date/Time: 11/28/2021 5:18 PM Location: OR Plan: routine intubation Patient Identity Confirmed by: Verbally with patient and armband Airway: not difficult Performed by: Anesthesiologist: Mohit Muñoz MD AA: Ash Campbell AA-C Indications and Patient Condition: Indications for Airway Management: Anesthesia Preoxygenated: Yes Patient Position: Sniffing Mask Difficulty Assessment: 2 - vent by mask + OA or adjuvant +/- NMBA Plan to extubate at end of case: Yes Final Airway Details: Final Airway Type: Endotracheal airway Final Endotracheal Airway: ETT Cuffed: Yes Cuff Volume (mL): 3 Technique Used for Successful ETT Placement: Video laryngoscopy Devices/Methods Used in Placement: Curved blade and intubating stylet Insertion Site: Oral Laryngoscope Blade/Videolaryngoscope Blade Size: 4 ETT Size (mm): 7.0 Measured from: Teeth ETT to Teeth (cm): 21 Tube secured with: Tape Placement Verified by: auscultation, end tidal CO2 and chest rise Cormack-Lehane Classification: Grade I - full view of glottis Number of Attempts at Approach: 1 Additional Comments: Trismus and limited mouth opening resolved with propofol and succ * Anesthesia Preprocedure Evaluation - Mohit Muñoz MD - 11/28/2021 4:12 PM CDT Relevant Problems No relevant active problems Anesthesia Evaluation Airway Mallampati: III TM distance: >3 FB Neck ROM: full Dental - normal exam Pulmonary (+) sleep apnea, Cardiovascular (+) valvular problems/murmurs, CAD, Neuro/Psych (+) seizures, neuromuscular disease, headaches, psychiatric history GI/Hepatic/Renal (+) GERD, Endo/Other (+) arthritis Comments: Seizure disorder Major depressive disorder TMJ disease Acute cholecystitis Abdominal Anesthesia History History of anesthetic complications and history of difficult intubation.No history of malignant hyperthermia, no history of PONV and no pseudocholinesterase deficiency. Comments: Wakes during surgery, reports cardiac arrest 2007 - MANDIBLE ARTHPOPLATY SURGERY, unable to urinate after surgery, no catheter will wear cotton panties and pad, WOKE UP DURING SURGERY, FLATLINED X2, HARD TO PUT OUT, slow to wake up. PACE NOte reviewed Pre-Procedure Anesthesiology Consultation and Evaluation (PACE) Service ?? 08/14/2021 12:00 PM ?? Name: Kayla Avila Age: 46 y.o. Sex: female CSN: [id number] ?? Case: [id number] Date/Time: 08/21/21 1348 Procedures: ?TEETH MULTIPLE EXTRACTION (N/A Mouth) [24061 CPT(R)] - TEETH EXTRACTION #'S 15, 19 ?DENTAL IMPLANT INSERTION (N/A Mouth) [86290 CPT(R)] - # 19 ?MANDIBULAR OPEN REDUCTION INTERNAL FIXATION (N/A Face) [14599 CPT(R)] - ACTUAL: MOBILIZATIONUNDER ANESTHESIA, REQ 12PM-AFTER, *[place]* Anesthesia type: General Pre-op diagnosis: TRISMUS Location: [facility] OR ADD ON 1 / [facility] OR MAIN Surgeons: Dylon Fung MD ? Allergies Allergen Reactions ??? Adhesive Tape-Silicones Hives ??? Erythromycin Seizure, Hallucination and Other (See Comments) ? Neuro problems Seizure as a baby Reaction: Neuro problems, , ? Silicone Hives ??? Unclassified Drug Swelling ? ALLERGY TO URINARY CATHETERS Current Medications Current Outpatient Medications Medication Sig Dispense Refill ??? erenumab-aooe (AIMOVIG) 70 mg/mL Auto-Injector Inject 70 mg by subcutaneous injection one time only. - (one of these days) of each month ? HYDROcodone-acetaminophen (NORCO) 5-325 mg tablet Take 1 Tablet by mouth 2 times daily. TAKES 1EXTRA ONE DAILY ON OCCASION ? lamoTRIgine (LaMICtal) 100 mg tablet Take 350 mg by mouth 2 times daily . ? calcium carbonate (TUMS ORAL) Take by mouth 1 time daily as needed. ? levETIRAcetam (KEPPRA) 1,000 mg tablet Take 2,000 mg by mouth 2 times daily . ? primidone (MYSOLINE) 50 mg tablet Take 50 mg by mouth daily at bedtime. ? pantoprazole (PROTONIX) 40 mg Tablet, Delayed Release (E.C.) Take 40 mg by mouth daily. ? traZODone (DESYREL) 100 mg Oral tablet Take 100 mg by mouth daily at bedtime. ? gabapentin (NEURONTIN) 600 mg Oral tablet Take 1,200 mg by mouth 3 times daily. ? docusate sodium (COLACE) 100 mg capsule Take 1 Capsule (100 mg) by mouth 2 times daily. 20 Capsule 0 ??? ibuprofen (MOTRIN) 800 mg tablet Take 1 Tablet (800 mg) by mouth every 8 hours. 30 Tablet 0 ??? buPROPion SR 12 hour (WELLBUTRIN-SR) 150 mg Oral tablet Take 150 mg by mouth 2 times daily. ? No current facility-administered medications for this encounter. ?? Advised pt to take the following medications AM DOS: Advised pt to stop the following medications on : ?? Medication Instructions ??? erenumab-aooe (AIMOVIG) 70 mg/mL Auto-Injector Do not take day of surgery? HYDROcodone-acetaminophen (NORCO) 5-325 mg tablet Continue taking as prescribed? lamoTRIgine (LaMICtal) 100 mg tablet Continue taking as prescribed? calcium carbonate (TUMS ORAL) Stop taking 1 week prior to surgery? levETIRAcetam (KEPPRA) 1,000 mg tablet Continue taking as prescribed? primidone (MYSOLINE) 50 mg tablet Continue taking as prescribed? pantoprazole (PROTONIX) 40 mg Tablet, Delayed Release (E.C.) Continue taking as prescribed? traZODone (DESYREL) 100 mg Oral tablet Continue taking as prescribed? gabapentin (NEURONTIN) 600 mg Oral tablet Continue taking as prescribed ? Patient Active Problem List ?? Diagnosis Date Noted ??? Acute cholecystitis 11/27/2018 ??? Seizure disorder ? Major depressive disorder ? TMJ disease ? Past Medical History: Diagnosis Date ??? Anxiety ? Arthritis ? left jaw ??? CAD (coronary artery disease) ? Depression ? Difficult intravenous access ? Difficult intubation ? small mouth opening, hx jaw surgery ??? Disorder of jaw ? JAWS WIRED SHUT ??? Endometriosis 2012 ??? GERD (gastroesophageal reflux disease) ? Headache(784.0) ? Migraines related to left jaw ??? Heart attack 2009 ?? [place] ??? History of complications due to general anesthesia ? WOKE UP DURING SURGERY, FLAT LINED X2, HARD TO PUT OUT, slow to wake up ??? Hx of mitral valve prolapse ? Murmur ? Neuropathy ? FROM MEDICATION ??? Obstructive sleep apnea ? no cpap ??? Obstructive sleep apnea (adult) (pediatric) ? NO MACHINE - NEVER USED MACHINE ??? Polyps of both external auditory canals ? LEFT SIDE ??? Seizure disorder DX 04/2014 ?? FAINTING SEIZURE, GRAND MAL - LAST SEIZURE 05/2014, PETIT MAL , MUSCLE TWITCHING - TOTAL 80-90SEIZURES DAILY ??? 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 Temporomandibular joint disorders, unspecified ? Unspecified adverse effect of anesthesia ? Wakes during surgery, reports cardiac arrest 2007 - MANDIBLE ARTHPOPLATY SURGERY ??? Vertigo ?? Past Surgical History Past Surgical History: Procedure Laterality Date ??? DILATION AND CURETTAGE ?? 04/10/15 ??? HX CRANIOFACIAL RECONSTRUCTION Left 06/17/2018 ?? ORALMAXILLOFACIAL DEVICE REMOVAL performed by Dylon Fung MD at [facility] OR [facility] ??? HX CRANIOFACIAL RECONSTRUCTION N/A 08/11/2018 ?? ORALMAXILLOFACIAL DEVICE REMOVAL LT. MANDIBLE HARDWARE performed by Dylon Fung MD at [facility] OR [facility] ??? HX CRANIOFACIAL RECONSTRUCTION N/A 01/12/2019 ?? ORALMAXILLOFACIAL DEVICE REMOVAL performed by Dylon Fung MD at [facility] OR [facility] ??? HX TUBAL LIGATION ?? 04/10/15 ??? HX VAGINAL DELIVERY ?? 09/19/1993 ??? HX WISDOM TEETH EXTRACTION ?? TEEN ??? DC ARTHROPLASTY TMJ+PROSTHESIS N/A 11/03/2018 ?? TEMPOROMANDIBULAR JOINT PROSTHETIC PLACEMENT performed by Dylon Fung MD at [facility] OR [facility] ??? DC EXC SKIN BENIG 0.6-1CM TRUNK,ARM,LEG ?? 08/13/2012 ?? CYST LESION MASS EXCISION performed by Kraig Gabriel MD at [facility] OR [facility] ??? DC EXC SKIN BENIG 0.6-1CM TRUNK,ARM,LEG ?? 09/15/2012 ?? CYST LESION MASS EXCISION performed by Kraig Gabriel MD at [facility] OR [facility] ??? DC EXC SKIN BENIG 0.6-1CM TRUNK,ARM,LEG Left 06/17/2018 ?? CYST LESION MASS EXCISION performed by Kraig Gabriel MD at [facility] OR [facility] ??? DC LAP,CHOLECYSTECTOMY N/A 11/27/2018 ?? CHOLECYSTECTOMY LAPAROSCOPIC POSS OPEN performed by Ignacio Frost MD at [facility] OR [facility] ??? DC MYRINGOPLASTY Left 06/17/2018 ?? MYRINGOPLASTY performed by Kraig Gabriel MD at [facility] OR [facility] ??? DC NERVOUS SYSTEM SURGERY UNLISTED N/A 11/03/2018 ?? STEROID INJECTION performed by Dylon Fung MD at [facility] OR [facility] ??? DC PREP FACE/ORAL PROST UNLISTED ?? 06/17/2018 ?? TEMPOROMANDIBULAR JOINT PROSTHETIC REMOVAL performed by Dylon Fung MD at [facility] OR [facility] ??? DC RECONSTR JAW,FULL,ENDO IMPLNT ? from 2000 to 2018 total of [address] Dylon Fung ??? DC REMOVAL SUPERFICIAL IMPLANT ?? 11/03/2012 ?? HARDWARE REMOVAL performed by Dylon Fung MD at [facility] OR [facility] ??? DC REMV EXT CANAL SOFT TISSUE LESN ?? 11/03/2012 ?? AURICULAR CYST LESION MASS EXCISION performed by Dylon Fung MD at [facility] OR [facility] Social History ?? Tobacco Use ??? Smoking status: Former Smoker ? Packs/day: 0.25 ? Years: 15.00 ? Pack years: 3.75 ? Types: Cigarettes ? Quit date: 06/08/2018 ? Years since quittin.1 ??? Smokeless tobacco: Never Used ??? Tobacco comment: OFF AND ON Substance Use Topics ??? Alcohol use: No ? Alcohol/week: 0.0 standard drinks Family History No family history on file. ?? Previous Anesthesia Problems/Concerns: Wakes during surgery, reports cardiac arrest 2007. states??she flatlined x 2 in 2008 d/t bleeding intra-op; Has had >40 surgeries - MANDIBLE ARTHPOPLATY SURGERY ?? H/O difficult intubation ?? History of PONV No ?? Multiple procedures here and has done well. ?? Patient will tell you where to put an IV. Difficult IV access ? Anes record Dr. Barrow January 12, 2019 [...] sounds, Equal chest movement, Continuous waveform capnography ? Review of Systems ?? Cardiovascular: Patient relates had an EKG done [...] of stairs w/o cp Tobacco negative TRISMUS ?? PHYSICAL EXAM BP 112/80 (BP Location: Right [...] edema LABS Lab Results Component Value Date ?? WBC 4.9 11/27/2018 ?? HGB 11.8 11/27/2018 ?? HCT 34.6 (L) 11/27/2018 ?? PLT 201 11/27/2018 ?? MCV 97.7 11/27/2018 Lab Results Component Value Date ?? NA 138 11/27/2018 ?? K 3.5 11/27/2018 ?? CL 103 11/27/2018 ?? CO2 24 11/27/2018 ?? CA 8.7 11/27/2018 ?? BUN 3 (L) 11/27/2018 ?? CREAT 0.70 06/04/2021 ?? CREAT 0.55 11/27/2018 ?? GLUCOSE 90 11/27/2018 ?? ANIONGAP 11 11/27/2018 No results found for: INR, PT, PROTIMEPOC Lab Results Component Value Date ?? HCGURPOC Negative 11/03/2012 ?? HCGQUALUR Negative 01/12/2019 ? EKG November 25, 2018 Normal EKG Other Studies/Considerations: None ?? Risks/Alternatives discussed. Questions solicited and answered. Yes Postop pain management discussed no Smoking/Tobacco Counseling: None Recommendations:[place] precautions, Potential difficult intubation or Potential difficult intravenous access ? ATTESTATIONS Prescriptions Prior to Admission (Not in a hospital admission) ? I obtained, updated or reviewed the patient's current medications including dosage, frequency, and route of administration. This information was obtained directly from the patient or veterans contact representative or caregiver or another available healthcare resource and updated in [employer] EMR. Social History ?? Tobacco Use Smoking Status Former Smoker ??? Packs/day: 0.25 ??? Years: 15.00 ??? Pack years: 3.75 ??? Types: Cigarettes ??? Quit date: 06/08/2018 ??? Years since quittin.1 Smokeless Tobacco Never Used Tobacco Comment ?? OFF AND ON ? Patient screened for tobacco use and identified as a Non-User of tobacco. ? REPORT AND NECESSARY FOLLOW-UP History and physical performed in [facility]; tests (ECG, blood work) reviewed. Abnormal Results Found: no Further Testing or Evaluation Required: no Final [facility] Center Review: May proceed with procedure/surgery: yes ? MADONNA Barrios, 08/14/2021 12:13 PM ? I, Lamine Paez MD, attest that I have reviewed the Advanced Practitioner's note - including the history, documented findings, assessment, and plan. I agree with the plan as documented except where noted. ?? Lamine Paez MD Anesthesia Plan ASA Final: 3 General Intravenous induction Oral ETT airway maintenance NPO status > 8 hours Anesthetic plan and risks discussed with Patient and Patient Designated [employer] Plant Supervisor. Use of blood products: consented to blood products. Plan discussed with Anesthesiologist. Post-op Pain Control Plan to use IV or IM medication, Oral medication and Per surgeon for post-op pain control. Plan for postoperative opioid use Smoking Compliance Patient did not smoke on day of surgery documented in this encounter Miscellaneous Notes * Addendum Note - Rema Frank AA-C - 11/29/2021 6:50 AM CDT Addendum created 11/29/21 0650 by Rema Frank AA-C Intraprocedure Meds edited documented in this encounter Plan of Treatment Not on file documented as of this encounter Procedures Procedure Name Priority Date/Time Associated Diagnosis Comments DC ANES INSERT ENDOTRACHEAL AIRWAY Routine 11/28/2021 5:18 PM CDT DC ANES INSERT ENDOTRACHEAL AIRWAY Routine 11/28/2021 5:16 PM CDT documented in this encounter Results * DC ANES INSERT ENDOTRACHEAL AIRWAY (11/28/2021 5:18 PM CDT) Narrative Mohit Muñoz MD - 11/28/2021 5:18 PM CDT Mohit Muñoz MD ? 11/28/2021 ??5:30 PM Airway Date/Time: 11/28/2021 5:18 PM Location: OR Plan: routine intubation Patient Identity Confirmed by: ??Verbally with patient and armband Airway: not difficult Performed by: Anesthesiologist: ??Mohit Muñoz MD AA: ??Ash Campbell, DEEPTIC Indications and Patient Condition: ??Indications for Airway Management: ??Anesthesia ??Preoxygenated: Yes ?Patient Position: ??Sniffing ??Mask Difficulty Assessment: ??2 - vent by mask + OA or adjuvant +/- NMBA ??Plan to extubate at end of case: Yes ?? Final Airway Details: ??Final Airway Type: ??Endotracheal airway ??Final Endotracheal Airway: ??ETT ??Cuffed: Yes ?Cuff Volume (mL): ??3 ??Technique Used for Successful ETT Placement: ??Video laryngoscopy ??Devices/Methods Used in Placement: ??Curved blade and intubating stylet ??Insertion Site: ??Oral ??Laryngoscope Blade/Videolaryngoscope Blade Size: ??4 ??ETT Size (mm): ??7.0 ??Measured from: ??Teeth ??ETT to Teeth (cm): ??21 ??Tube secured with: ??Tape ??Placement Verified by: auscultation, end tidal CO2 and chest rise ?Cormack-Lehane Classification: ??Grade I - full view of glottis ??Number of Attempts at Approach: ??1 Additional Comments: ?? Trismus and limited mouth opening resolved with propofol and succ Mohit Muñoz MD PROCEDURE/MINOR S URGICAL ORDERABLES * DC ANES INSERT ENDOTRACHEAL AIRWAY (11/28/2021 5:16 PM CDT) Narrative Mohit Muñoz MD - 11/28/2021 5:16 PM CDT Mohit Muñoz MD ? 11/28/2021 ??5:30 PM Airway Date/Time: 11/28/2021 5:16 PM Location: OR Plan: routine intubation Patient Identity Confirmed by: ??Verbally with patient and armband Airway: not difficult Performed by: AA: ??Ash Campbell AA-C Indications and Patient Condition: ??Indications for Airway Management: ??Anesthesia ??Preoxygenated: Yes ?Patient Position: ??Appropriate position w/cervical spine immobilization maintained throughout the procedure and sniffing ??Mask Difficulty Assessment: ??1 - vent by mask ??Plan to extubate at end of case: Yes ?? Final Airway Details: ??Final Airway Type: ??Endotracheal airway ??Final Endotracheal Airway: ??ETT ??Cuffed: Yes ?Technique Used for Successful ETT Placement: ??Video laryngoscopy ??Devices/Methods Used in Placement: ??Curved blade and video laryngoscope ??Insertion Site: ??Oral ??Laryngoscope Blade/Videolaryngoscope Blade Size: ??3 ??ETT Size (mm): ??7.0 Reason for advanced technique: Intraoperative decision ??Measured from: ??Lips ??ETT to Lips (cm): ??21 ??Tube secured with: ??Tape ??Placement Verified by: auscultation, end tidal CO2 and chest rise ?Cormack-Lehane Classification: ??Grade I - full view of glottis ??Number of Attempts at Approach: ??1 Additional Comments: ?? Atraumatic ETT insertion Mohit Muñoz MD PROCEDURE/MINOR S URGICAL ORDERABLES documented in this encounter Visit Diagnoses Not on filedocumented in this encounter Administered Medications Inactive Administered Medications - up to 3 most recent administrations Medication Order MAR Action Action Date Dose Rate Site ceFAZolin in sterile water (ANCEF) 2 gram/20 mL IV Syringe (PREMIX) 2,000 mg 2,000 mg, IV, PRE-PROCEDURE ONCE, 1 dose, Starting on Dhara 11/28/21 at 1225, Until Dhara 11/28/21 at 1726, Routine, Antibiotic Indication: Surgical prophylaxis Given 11/28/2021 5:21 PM CDT 2,000 mg dexamethasone (DECADRON) 4 mg/mL injection IV, INTRA-PROCEDURE PRN, Starting on Dhara 11/28/21 at 1730, Until Dhara 11/28/21 at 1755, Routine, Anesthesia Intra-op Given 11/28/2021 5:30 PM CDT 8 mg diphenhydrAMINE (BENADRYL) injection IV, INTRA-PROCEDURE PRN, Starting on Dhara 11/28/21 at 1730, Until Dhara 11/28/21 at 1755, Routine, Anesthesia Intra-op Given 11/28/2021 5:30 PM CDT 12.5 mg famotidine PF (PEPCID) 20 mg/2 mL injection IV, INTRA-PROCEDURE PRN, Starting on Dhara 11/28/21 at 1730, Until Dhara 11/28/21 at 1755, Routine, Anesthesia Intra-op Given 11/28/2021 5:30 PM CDT 20 mg fentaNYL PF (SUBLIMAZE) 50 mcg/mL injection IV, INTRA-PROCEDURE PRN, Starting on Dhara 11/28/21 at 1724, Until Dhara 11/28/21 at 1755, Routine, Anesthesia Intra-op Given 11/28/2021 5:24 PM CDT 50 mcg HYDROmorphone (DILAUDID) 2 mg/mL injection IV, INTRA-PROCEDURE PRN, Starting on Dhara 11/28/21 at 1740, Until Dhara 11/28/21 at 1755, Routine, Anesthesia Intra-op Given 11/28/2021 5:40 PM CDT 0.4 mg lactated ringers infusion IV, at 150 mL/hr, PRE-PROCEDURE CONTINUOUS, Starting on Dhara 11/28/21 at 1230, Until Dhara 11/28/21 at 2140, Routine Restarted 11/28/2021 5:51 PM CDT Continue from Pre-Op 11/28/2021 5:05 PM CDT 150 mL/hr New Bag 11/28/2021 1:02 PM CDT 150 mL/hr 150 mL/hr midazolam (PF) (VERSED) injection IV, INTRA-PROCEDURE PRN, Starting on Dhara 11/28/21 at 1705, Until Dhara 11/28/21 at 1755, Routine, Anesthesia Intra-op Given 11/28/2021 5:05 PM CDT 2.5 mg ondansetron (ZOFRAN) 4 mg/2 mL injection IV, INTRA-PROCEDURE PRN, Starting on Dhara 11/28/21 at 1730, Until Dhara 11/28/21 at 1755, Routine, Anesthesia Intra-op Given 11/28/2021 5:30 PM CDT 4 mg propofoL (DIPRIVAN) injection IV, INTRA-PROCEDURE PRN, Starting on Dhara 11/28/21 at 1714, Until Dhara 11/28/21 at 1755, Anesthesia Intra-op New Bag 11/28/2021 5:19 PM CDT 50 mcg/kg/min 29.94 mL/hr Given 11/28/2021 5:14 PM CDT 150 mg succinylcholine-sod Cl,iso(PF) 200 mg/10 mL (20 mg/mL) syringe IV, INTRA-PROCEDURE PRN, Starting on Dhara 11/28/21 at 1715, Until Dhara 11/28/21 at 1755, Routine, Anesthesia Intra-op Given 11/28/2021 5:15 PM CDT 120 mg documented in this encounter Care Teams Psychologist Counseling Relationship Specialty Start Date End Date Davi Georges MD [facility] [place] [id number] PCP - General Family Practice 08/14/21 documented as of this encounter
--- OUTSIDE RECORDS SUMMARY | 2024-07-16 13:00 | XMS_ITS | Encounter Summary ---
Author Organization [facility] Address [address] [place] [address] Care Team Providers Care Zipper Repairer Name Role Phone Sg Richards MD Primary Care Provider Reason for Visit * Auth/Cert Specialty Diagnoses / Procedures Referred By Contac t Referred To Contact Multi Specialty Diagnoses cholecystitis [facility] [address] [place] [address] Referral ID Status Reason Start Date Expiration Date Visits Re quested Visits Authorized [id number] 1 1 Encounter Details Date Type Department Care Team (Latest Contact Info) Description 11/26/2018 7:06 PM CDT - 11/28/2018 12:22 PM CDT Hospital Encounter [facility] Medicine [address] [place] [address] Ignacio Frost MD NO ADDRESS ON FILE Acute cholecystitis Discharge Disposition: Home or Self Care Social History Tobacco Use Types Packs/Day Years Used Date Smoking Tobacco: Former Cigarettes 0.3 3 Smokeless Tobacco: Never Alcohol Use Standard Drinks/Week Comments No 0 (1 standard drink = 0.6 oz pur e alcohol) Sex and Gender Information Value Date Recorded Sex Assigned at Not on file Gender Identity Not on file Sexual Orientation Not on file documented as of this encounter Last Filed Vital Signs Vital Sign Reading Time Taken Comments Blood Pressure 98/66 11/28/2018 8:39 AM CDT Pulse 56 11/28/2018 8:39 AM CDT Temperature 36.3 ??C (97.3 ??F) 11/28/2018 8:39 AM CD T Respiratory Rate 16 11/28/2018 8:39 AM CDT Oxygen Saturation 98% 11/28/2018 8:39 AM CDT Inhaled Oxygen Concentration - - Weight 80.4 kg (177 lb 3.2 oz) 11/26/2018 7:41 P M CDT Height 162.6 cm (5' 4 ) 11/26/2018 7:41 PM CDT Body Mass Index 30.42 11/26/2018 7:41 PM CDT documented in this encounter Discharge Summaries * Ignacio Frost MD - 11/28/2018 8:03 AM CDT Physician Discharge Summary Patient: Kayla Ellis Lievers / 43 y.o. / female : 1975 CSN: [id number] Today's Date: 11/28/2018 Admitting Physician: Ignacio Frost MD Consults: none Admit date: 11/26/2018 Discharge date: 11/28/2018 Admitting Diagnoses: Active Problems: Acute cholecystitis Discharge Diagnoses: Active Hospital Problems Diagnosis ??? Acute cholecystitis Resolved Hospital Problems No resolved problems to display. Hospital Course: The patient was admitted to [facility] with acute cholecystitis. She underwent uneventful laparoscopic cholecystectomy. Physical Exam 11/28/2018: Vitals: 11/27/18 1721 11/27/18 2001 11/28/18 0051 11/28/18 0443 BP: 121/71 109/72 106/70 101/67 BP Location: Right arm Right arm Right arm Right arm Patient Position (BP): Supine Supine Supine Supine Pulse: 67 64 (!) 51 (!) 55 Resp: 15 13 15 16 Temp: 97.4 ??F (36.3 ??C) 97.5 ??F (36.4 ??C) 97.8 ??F (36.6 ??C) TempSrc: Axillary Axillary Axillary SpO2: 98% 97% 95% 97% Weight: Height: General appearance: alert, in no distress Lungs: clear to auscultation bilaterally, normal respiratory effort Heart: regular rate and rhythm, S1, S2 normal, no murmur, click, rub or gallop Abdomen: Soft, non-tender. Bowel sounds normal. No masses, no organomegaly. Extremities: intact distal pulses, moves all extremities equally, no edema, redness or tenderness in the calves or thighs Skin: Skin color, texture, turgor normal. No rashes or lesions Neurologic: Grossly normal Discharging Physician: Ignacio Frost MD/ Discharge Condition: improving. Disposition: home. MEDICATIONS Prior to admission: No current facility-administered medications on file prior to encounter. Current Outpatient Medications on File Prior to Encounter Medication Sig Dispense Refill ??? docusate sodium (COLACE) 100 mg capsule Take 1 Capsule (100 mg) by mouth 2 times daily. 20 Capsule 0 ??? ibuprofen (MOTRIN) 800 mg tablet Take 1 Tablet (800 mg) by mouth every 8 hours. 30 Tablet 0 ??? [DISCONTINUED] oxyCODONE-acetaminophen (PERCOCET) 7.5-325 mg Tablet Take 1 Tablet by mouth every 4 hours as needed for moderate pain. Max Daily Amount: 6 Tablets 30 Tablet 0 ??? ondansetron (ZOFRAN) 4 mg Tablet Take 1 tablet by mouth every 8 hours as needed for nausea or vomiting. 10 Tablet 0 ??? lamoTRIgine (LaMICtal) 100 mg [...] 150 mg by mouth 2 times daily. Discharge medications and new prescriptions: Medication List CONTINUE taking these medications buPROPion HCl 150 mg Sustained Release 12 hour tablet Commonly known as: WELLBUTRIN SR Take 150 mg by mouth 2 times daily. Refills: 0 DOK 100 mg capsule Take 1 Capsule (100 mg) by mouth 2 times daily. Signed by: Demetri Rowe DMD Quantity: 20 Capsule Refills: 0 Generic drug: docusate sodium gabapentin 600 mg tablet Commonly known as: NEURONTIN Take 1,200 mg by mouth 3 times daily. Refills: 0 ibuprofen 800 mg tablet Commonly known as: MOTRIN Take 1 Tablet (800 mg) by mouth every 8 hours. Signed by: Demetri Rowe DMD Quantity: 30 Tablet Refills: 0 lamoTRIgine 100 mg tablet Commonly known as: LaMICtal Take 350 mg by mouth 2 times daily . Refills: 0 levETIRAcetam 1,000 mg tablet Commonly known as: KEPPRA Take 2,000 mg by mouth 2 times daily . Refills: 0 ondansetron 4 mg Tablet Commonly known as: ZOFRAN Take 1 tablet by mouth every 8 hours as needed for nausea or vomiting. Signed by: Wanda Peres DDS Quantity: 10 Tablet Refills: 0 oxyCODONE-acetaminophen 7.5-325 mg Tablet Commonly known as: PERCOCET Take 1 Tablet by mouth every 4 hours as needed for moderate pain. Max Daily Amount: 6 Tablets Signed by: Ignacio Frost MD Quantity: 30 Tablet Refills: 0 pantoprazole 40 mg Tablet, Delayed Release (E.C.) Commonly known as: PROTONIX Take 40 mg by mouth daily. Refills: 0 primidone 50 mg tablet Commonly known as: MYSOLINE Take 50 mg by mouth daily at bedtime. Refills: 0 Indications of Use: 1 1/2 at bedtime traZODone 100 mg tablet Commonly known as: DESYREL Take 100 mg by mouth daily at bedtime. Refills: 0 TUMS ORAL Take by mouth 1 time daily as needed. Refills: 0 Where to Get Your Medications Information about where to get these medications is not yet available Ask your nurse or doctor about these medications ?? oxyCODONE-acetaminophen 7.5-325 mg Tablet Patient instructions: Activity: no lifting, Driving, or Strenuous exercise for 6 weeks. Diet: Low fat, Low cholesterol. Wound Care: Ice to area for comfort. Follow-up with Ignacio Frost MD in 3 week(s). Ignacio Frost MD, 11/28/2018 8:05 AM Pager # [phone] I certify that I have spent >30 minutes within patient care. If you have any questions and are not able to get a hold of myself, please contact the trauma/general surgeon director content marketing. documented in this encounter Discharge Instructions * Discharge Instructions* Ignacio Frost MD - 11/27/2018 2:40 PM CDT [facility] GENERAL/TRAUMA SURGERY INSTRUCTIONS: This is to certify that Kayla Avila was hospitalized from 11/27/2018 to 11/28/[address] a car or return to work until further notice. It is expected for the patient to return in follow up with the department within the next 1-2 weeks. You can not drive a car or work around hazardous machinery while you are taking narcotics. You may shower on today You may place ice on the wound (ice bag not direct contact) for 20 minutes and take the ice off for20 minutes and repeat as often as needed for pain control. Keep your wound(s) clean and dry. Avoid your clothes from rubbing on your incisions. Pat your incisions dry after showering. Do not go into swimming pools, oceans, [place], or streams during the first month after surgery. You should take gentle dpak-uqe-vqsmwpz stool softeners twice a day until you get back into your normal diet and activity. You may need to add uxuk-lmn-peeerul milk of magnesia, magnesium citrate, dulcolax suppository, or an enema. You may not lift, pull, push, or shove greater than 5 lbs per arm for the first two weeks after surgery. You will then be able to increase what you lift, pull, push, or shove by 5 lbs per arm per week - so that by the eighth week after surgery, you should be able to lift up to 40 lbs per arm. Aftereight weeks, advance your activity as tolerated. Your wound will be at its maximal strength, which is only 80% of the original strength. Wound infections generally do not show up for 7-10 days post operatively. If you have a wound infection, the wound is generally red and warm. There may be white or green drainage, and it may be more tender to touch. Sometimes the wound is just more tender and has no redness (this is particularly true for appendectomy incisions). You need to go to the ED if you develop any issues and it is after hours or the office is closed --temperature of 101F by mouth, protracted nausea or vomiting, worsening of pain not related to increase in your activities, progressive abdominal distention, chest pain, swelling or tenderness in yourlegs. Your pain medications are expected to last you about two weeks. Pain medications are not able to becalled into any pharmacy, so if you are having increased pain and feel that you need to be taking more pain medication than you have been prescribed, you will need to be seen in the office earlier. Lost or stolen pain medications will not be replaced. Your primary care physician will need to assume pain medication management/refill pain medications if they are necessary beyond the two weeks worth of medication written for at discharge. Please establish an appointment with your primary care physician immediately. If you do not have a primary care provider go to: [email or web address] and you will be instructed on how to find a primary care provider near you. Follow up with Dr. Frost in approximately 2 weeks - call for appointment. Please go to [email or web address] and establish an account and send me (Dr. Frost) a message/email inthe next 48-72 hours to let me know how you are doing and whether there were any unanswered questions. documented in this encounter Medications at Time of Discharge Medication Sig Dispensed Refills Start Date End Date ibuprofen (MOTRIN) 800 mg tablet Take 1 [...] 150 mg by mouth 2 times daily. oxyCODONE-acetaminophen (PERCOCET) 7.5-325 mg TabletIndications:Arthralg ia of left temporomandibular joint Take 1 Tablet by mouth every 4 hours as needed for moderate pain. Max Daily Amount: 6 Tablets 30 Tablet 11/28/2018 01/12/2019 documented as of this encounter H&P Notes * Wisam Salazar MD - 11/27/2018 2:40 AM CDT Images from the original note were not included. DATE: 11/27/2018 NAME: Kayla Avila : 1975 CSN: [id number] [facility] Surgery H&P/Consult ASSESSMENT/PLAN: 1) Acute cholecystitis - Zosyn resumed (started on at OSH) - NPO. IVF - Pain control - OSH CT reviewed - Consent for laparoscopic versus open cholecystectomy in the AM - Risks and benefits disscused 2) Hx of multiple oral/jaw procedures by [facility] - Reportedly on prophylactic augmentin per Dr. Porras? - Will re consult ID at some point to determine if Augmentin in necessary 3) Hx of seizures - resume home keppra See orders. I have reviewed this patient's history and physical, family history, acute and chronic diagnoses, all pertinent notes, vitals, labs, medications and images during my development of the above assessment and plan. I discussed case with Dr. Servin. Wisam Salazar MD, 11/27/2018 2:40 AM *If unable to reach me, please call the On-Call Trauma Surgeon* Subjective: No chief complaint on file. Active Hospital Problems Diagnosis ??? Acute cholecystitis Resolved Hospital Problems No resolved problems to display. HPI: Kayla Avila is a 43 y.o. female who presents as OSH transfer for management of epigastric and RUQ abdominal pain. Patient reportedly ate fried mushrooms on Thursday night (~3 days ago) which was followed by epigastric/RUQ abdominal pain the next day. Associated symptoms of nausea. Believes she has had previous history of similar presentation, but pain did not last this long. She went to [facility] where diagnostic workup included normal WBC, mildly elevated LFTS (ALT 105, AST 112), Tbili (0.9) and CT scan showing distended GB with small stones and trace pericholecystic fluidconcerning for cholecystitis. Patient transferred to [facility] given concerns for airway management given multiple jaw surgeries. Specifically, patient reportedly has undergone multiple maxillofacial surgeries due to injuries and complications sustained after being attacked by dog (2002). Her most recent surgery was on 11/03/[address] Fung when he performed L TMJ prosthetic placement. Of note, patient denies previous history of biliary colic. Patient is on narcotics at home for chronic jaw pain. In addition, patient reports being on jail augmentin presumably as prophylaxis as per ID (Dr. Porras) given multiple maxillofacial infections. Allergies Allergen Reactions ??? Adhesive Tape-Silicones Hives ??? Erythromycin Seizure ??? Other Drug [Unclassified Drug] Other (See Comments) ALLERGY TO CATHETERS Medications Prior to Admission Medication Sig Dispense Refill Last Dose ??? docusate sodium (COLACE) 100 mg capsule Take 1 Capsule (100 mg) by mouth 2 times daily. 20 Capsule 0 ??? oxyCODONE-acetaminophen (PERCOCET) 7.5-325 mg Tablet Take 1 Tablet by mouth every 4 hours as needed for moderate pain. Max Daily Amount: 6 Tablets 30 Tablet 0 ??? ibuprofen (MOTRIN) 800 mg tablet Take 1 Tablet (800 mg) by mouth every 8 hours. 30 Tablet 0 ??? ondansetron (ZOFRAN) 4 mg Tablet Take 1 tablet by mouth every 8 hours as needed for nausea or vomiting. 10 Tablet 0 11/26/2018 at 0900 ??? lamoTRIgine (LaMICtal) 100 mg tablet Take 350 mg by mouth 2 times daily . 11/02/2018 at Unknown time ??? calcium carbonate (TUMS ORAL) Take by mouth 1 time daily as needed. 11/01/2018 ??? levETIRAcetam (KEPPRA) 1,000 mg tablet Take 2,000 mg by mouth 2 times daily . 11/26/2018 at 0900 ??? primidone (MYSOLINE) 50 mg tablet Take 50 mg by mouth daily at bedtime. 11/25/2018 ??? pantoprazole (PROTONIX) 40 mg Tablet, Delayed Release (E.C.) Take 40 mg by mouth daily. 11/02/2018 at Unknown time ??? traZODone (DESYREL) 100 mg Oral tablet Take 100 mg by mouth daily at bedtime. 11/02/2018 at Unknown time ??? gabapentin (NEURONTIN) 600 mg Oral tablet Take 1,200 mg by mouth 3 times daily. 11/25/2018 at 2200 ??? buPROPion SR 12 hour (WELLBUTRIN-SR) 150 mg Oral tablet Take 150 mg by mouth 2 times daily. 11/02/2018 at Unknown time Past Medical History: Diagnosis Date ??? Anxiety ??? Arthritis left jaw ??? CAD (coronary artery disease) ??? Depression ??? Difficult intravenous access ??? Difficult intubation small mouth opening ??? Disorder of jaw JAWS WIRED SHUT ??? Endometriosis 2013 ??? GERD (gastroesophageal reflux disease) ??? Headache(784.0) Migraines related to left jaw ??? Heart attack 2010 [place] ??? 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 Obstructive sleep [...] REMOVAL performed by Dylon Fung MD at [facility] ??? HX CRANIOFACIAL RECONSTRUCTION N/A 08/11/2018 ORALMAXILLOFACIAL DEVICE REMOVAL LT. MANDIBLE HARDWARE performed by Dylon Fung MD at [facility] OR [facility] ??? HX TUBAL LIGATION 04/10/15 ??? HX VAGINAL DELIVERY 09/19/1993 ??? HX WISDOM TEETH EXTRACTION TEEN ??? LA ARTHROPLASTY TMJ+PROSTHESIS N/A 11/03/2018 TEMPOROMANDIBULAR JOINT PROSTHETIC PLACEMENT performed by Dylon Fung MD at [facility] OR [facility] ??? LA EXC SKIN BENIG 0.6-1CM TRUNK,ARM,LEG 08/13/2012 CYST LESION MASS EXCISION performed by Kraig Gabriel MD at [facility] OR [facility] ??? LA EXC SKIN BENIG 0.6-1CM TRUNK,ARM,LEG 09/15/2012 CYST LESION MASS EXCISION performed by Kraig Gabriel MD at [facility] OR [facility] ??? LA EXC SKIN BENIG 0.6-1CM TRUNK,ARM,LEG Left 06/17/2018 CYST LESION MASS EXCISION performed by Kraig Gabriel MD at [facility] OR [facility] ??? LA MYRINGOPLASTY Left 06/17/2018 MYRINGOPLASTY performed by Kraig Gabriel MD at [facility] OR [facility] ??? LA NERVOUS SYSTEM SURGERY UNLISTED N/A 11/03/2018 STEROID INJECTION performed by Dylon Fung MD at [facility] OR [facility] ??? LA PREP FACE/ORAL PROST UNLISTED 06/17/2018 TEMPOROMANDIBULAR JOINT PROSTHETIC REMOVAL performed by Dylon Fung MD at [facility] OR [facility] ??? LA RECONSTR JAW,FULL,ENDO IMPLNT from 2000 to 2008 total of [address] Dylon Fung ??? LA REMOVAL SUPERFICIAL IMPLANT 11/03/2012 HARDWARE REMOVAL performed by Dylon Fung MD at [facility] OR [facility] ??? LA REMV EXT CANAL SOFT TISSUE LESN 11/03/2012 AURICULAR CYST LESION MASS EXCISION performed by Dylon Fung MD at [facility] OR [facility] No family history on file. Social History Socioeconomic History ??? Marital status: Spouse name: Not on file ??? Number of children: Not on file ??? Years of education: Not on file ??? Highest education level: Not on file Occupational History Employer: NOT EMPLOYED Social Needs ??? Financial resource strain: Not on file ??? Food insecurity: Worry: Not on file Inability: Not on file ??? Transportation needs: Medical: Not on file Non-medical: Not on file Tobacco Use ??? Smoking status: Former Smoker Packs/day: 0.25 Years: 3.00 Pack years: 0.75 Types: Cigarettes ??? Smokeless tobacco: Never Used Substance and Sexual Activity ??? Alcohol use: No Alcohol/week: 0.0 oz ??? Drug use: No ??? Sexual activity: Yes Partners: Male control/protection: Tubal Occlusion Comment: LMP-07/08/18 Lifestyle ??? Physical activity: Days per week: Not on file Minutes per session: Not on file ??? Stress: Not on file Relationships ??? Social connections: Talks on phone: Not on file Gets together: Not on file Attends taoist service: Not on file Active member of club or organization: Not on file Attends meetings of clubs or organizations: Not on file Relationship status: Not on file ??? Intimate partner violence: Fear of current or ex partner: Not on file Emotionally abused: Not on file Physically abused: Not on file Forced sexual activity: Not on file Other Topics Concern ??? Not on file Social History Narrative ??? Not on file TOBACCO COUNSELING She is not a tobacco user. Review of Systems: ROS As above Objective: Patient Vitals for the past 8 hrs: BP Temp Temp src Pulse Resp SpO2 Height Weight 11/26/18 2336 103/65 98.2 ??F (36.8 ??C) Oral 64 16 99 % -- -- 11/26/18 1941 110/67 98.9 ??F (37.2 ??C) Oral (!) 54 18 99 % 5' 4 (1.626 m) 80.4 kg (177 lb 3.2 oz) BP 103/65 (BP Location: Right arm, Patient Position (BP): Supine) Pulse 64 Temp 98.2 ??F (36.8 ??C) (Oral) Resp 16 Ht 5' 4 (1.626 m) Wt 80.4 kg (177 lb 3.2 oz) SpO2 99% BMI 30.42 kg/m?? Physical Exam: Gen: NAD Neuro: AxOx3 HEENT: NC/AT, EOMI CV: Regular Resp: Non labored Abd: soft, ND, TTP in epigastrium and RUQ : deferred Ext: moves all four Skin: wwp Psych: appropriate Pulses: 2+ 4x Labs/Imaging: Results for orders placed or performed during the hospital encounter of 11/26/18 (from the past 24 hour(s)) CBC WITH DIFFERENTIAL Result Value Ref Range WBC 5.5 4.0 - 9.8 K/uL RBC 3.42 (L) 3.90 - 4.90 M/uL HEMOGLOBIN 11.2 (L) 11.8 - 14.8 g/dL HEMATOCRIT 33.8 (L) 35.5 - 44.0 % MCV 98.8 82.0 - 99.0 fL MCH 32.7 (H) 27.2 - 32.6 pg MCHC 33.1 31.5 - 35.5 g/dL RDW 13.0 11.5 - 14.5 % RDW-STDEV 46.9 37.1 - 48.7 fL PLATELETS 187 140 - 350 K/uL MPV 11.2 9.3 - 12.4 fL NEUTROPHILS 60 % LYMPHOCYTES 29 % MONOCYTES 10 % EOSINOPHILS 2 % BASOPHILS 0 % IMMATURE GRANULOCYTES 0 % NEUTROPHIL ABSOLUTE 3.27 1.90 - 7.00 K/uL LYMPHOCYTE ABSOLUTE 1.56 0.70 - 4.50 K/uL MONOCYTE ABSOLUTE 0.52 0.10 - 1.30 K/uL EOSINOPHIL ABSOLUTE 0.09 0.00 - 0.70 K/uL BASOPHILS ABSOLUTE 0.02 0.00 - 0.20 K/uL IMMATURE GRANULOCYTES ABSOLUTE 0.01 0.00 - 0.03 K/uL COMPREHENSIVE METABOLIC PANEL Result Value Ref Range SODIUM 139 136 - 145 mmol/L POTASSIUM 3.4 (L) 3.5 - 5.0 mmol/L CHLORIDE 105 98 - 107 mmol/L CO2 24 22 - 29 mmol/L CALCIUM 8.9 8.6 - 10.2 mg/dL BUN 4 (L) 6 - 20 mg/dL CREATININE 0.56 0.51 - 0.95 mg/dL GLUCOSE 94 74 - 99 mg/dL TOTAL PROTEIN 6.2 (L) 6.7 - 8.6 g/dL ALBUMIN 3.4 (L) 3.5 - 5.2 g/dL BILIRUBIN TOTAL 0.5 0.3 - 1.2 mg/dL ALKALINE PHOSPHATASE 136 (H) 35 - 104 U/L AST 53 (H) <33 U/L ALT 80 (H) <34 U/L GFR >60 >=60 mL/min/1.73 sq meter GFR, >60 >=60 mL/min/1.73 sq meter ANION GAP 10 8 - 16 mmol/L LIPASE Result Value Ref Range LIPASE 18 13 - 60 U/L Imaging: OSH CT A/P: - distended gallbladder with tiny calculi, minimal wall thickening and trace pericholecystic fluid;suggestive of acute cholecystitis - 3mm parenchymal calcification upper pole of left kidney - 1.8 cm left ovarian cyst - dislodged right tubal ligation band Wisam Salazar 11/27/18 2:53 AM I personally reviewed all images. Wisam Salazar MD Associated attestation - Ignacio Frost MD - 11/27/2018 11:57 AM CDT Agree with below as noted by the Resident. In addition I note: 43 yo female with symptomatic cholelithiasis and cholecystitis Proceed to OR for cholecystectomy I certify that I have independently seen and examined this patient reviewed the labs, xrays, and evaluated the j2ee consultant's notes and agree with the above assessment. I have spent no less than 45 minutes involved in the care and evaluation of the patient. Ignacio Frost MD, 11/27/2018 11:56 AM Pager # [phone] *If unable to reach me, please call the hole digger operator and ask for the On-Call Trauma Surgeon* documented in this encounter OR Notes * Sabrina-OP - Arin Sy RN - 11/27/2018 5:01 PM CDT Potential for pain related to surgical/procedural intervention Interventions: Assess level of pain/comfort utilizing verbal/nonverbal pain scales; assess culturalor taoist indicators attached to pain; administer pain medications as prescribed; utilize non-pharmacologic pain control and comfort measures Expected Outcome: Patient demonstrates and reports adequate pain control Outcome Met: Resting quietly with eyes closed after pain rx. * Sabrina-OP - Arin Sy RN - 11/27/2018 3:35 PM CDT Benadryl given at 1522 per PRN order for nausea. Does not complain of nausea, but has belched numerous times. Is also pale. * Operative Report - Ignacio Frost MD - 11/27/2018 2:38 PM CDT Images from the original note were not included. NAME: Kayla Avila : 1975 CSN: [id number] Laparoscopic Cholecystectomy Procedure Note Indications: This patient presents with a symptomatic gallbladder disease. Pre-operative Diagnosis: Cholelithiasis with cholecystitis Post-operative Diagnosis: Cholelithiasis with cholecystitis Date of Procedure: 11/27/2018 Surgeon: Ignacio Frsot MD Anesthesia: General endotracheal anesthesia ASA Class: 3 Procedure Details The patient was seen in the Holding Room. The risks, benefits, complications, treatment options, and expected outcomes were discussed with the patient. The possibilities of reaction to medication, pulmonary aspiration, perforation of viscus, bleeding, recurrent infection, finding a normal gallbladder, the need for additional procedures, failure to diagnose a condition, the possible need to convert to an open procedure, and creating a complication requiring transfusion or operation were discussed with the patient. The patient concurred with the proposed plan, giving informed consent. The site of surgery properly noted/marked. The patient was taken to Operating Room # 20, identified as Kayla Avila and the procedure verified as Laparoscopic Cholecystectomy. A Time Out was held and the above information confirmed. Prior to the induction of general anesthesia, perioperative thromboprophylaxis and antibiotic prophylaxis was utilized. General endotracheal was then administered and tolerated well. After the induction, the abdomen was prepped widely as a sterile field. The positioning was supine with the both arms extended comfortably. Local anesthetic agent was injected into the skin near the umbilicus and an incision made. A 5 mm optiview trocar was used to gain intra-abdominal access under direct vision. Pneumoperitoneum was then created and tolerated well. The underlying small bowel was inspected and no injuries identified. Additional trocars were introduced under direct vision with an 11 mm trocar in the subxiphoid position and two 5 mm trocars in the right upper quadrant. All skin incisions and peritoneum were infiltrated with a local anesthetic agent before making the incision. The gallbladder was identified, the fundus grasped and retracted cephalad. Adhesions were lysed with electrocautery. The infundibulum was grasped and retracted laterally, exposing the peritoneum overlying the triangle of Calot. The cystic duct was clearly identified and bluntly dissected circumferentially. The junctions of the gallbladder, cystic duct and common bile duct were clearly identified prior to the division of any linear structure. The cystic duct was then doubly ligated with surgical clips and divided. The cystic artery was identified, dissected free, ligated with clips and divided. The gallbladder was dissected from the liver bed in retrograde fashion with the electrocautery. Theliver bed was irrigated and inspected. Hemostasis was achieved with the electrocautery. Copious irrigation was utilized and was repeatedly aspirated until clear all particulate matter.The gallbladderwas removed in an endocatch bag through the subxiphoid port site. The fascia was not enlarged to allow removal of the gallbladder. Pneumoperitoneum was completely reduced. The incisions were thoroughly irrigated and the skin was then closed with running absorbable suture and a sterile dressing was applied. Instrument, sponge, and needle counts were correct prior to closure and at the conclusion of the case. Findings: Adhesions Estimated Blood Loss: Minimal Drains: none Specimens: Gallbladder Complications: None; patient tolerated the procedure well. Attending Attestation: I performed the procedure. Patient transferred to PACU in stable condition Ignacio Frost MD, 11/27/2018 2:39 PM Pager # [phone] documented in this encounter Miscellaneous Notes * Care Plan - Meme Paniagua GN - 11/28/2018 11:38 AM CDT Pt discharged to home via private vehicle. Discharge paperwork discussed with pt, all questions answered. Prescription given for percocet. Pt showed no signs of distress at discharge. * Care Plan - Nettie Nathan RN - 11/28/2018 5:08 AM CDT Morphine & norco given for pain per MAR. Tolerating diet. IVF continued. Ambulating independently in room. * Care Plan - Deisy Johnston RN - 11/27/2018 7:15 PM CDT Pt complains of pain after procedure. meds given per mar. Pt ambulated to the bathroom with 's help. O2 level has been good; no further questions or concerns at this time. * Care Plan - Soledad Fox RN - 11/27/2018 10:00 AM CDT Knowledge deficit related to procedure/environment Interventions: Assess learning needs and willingness to learn; give clear, concise explanations of the environment and sequence of events surrounding the periop experience; address patient/family questions and concerns; provide teaching as indicated, provide teaching related to postoperative pain assessment utilizing pain scales Expected Outcome: Patient verbalizes or demonstrates awareness/understanding of surgery and perioperative experience Outcome Met: preop teaching done, pt & spouse verbalize understanding * Care Plan - Nettie Nathan RN - 11/27/2018 6:20 AM CDT NPO @ midnight for procedure today. IVF initiated. Morphine given for pain, zofran given for nausea-pt verbalized relief. documented in this encounter Plan of Treatment Not on file documented as of this encounter Procedures Procedure Name Priority Date/Time Associated Diagnosis Comments PATHOLOGY Pathology 11/27/2018 2:41 PM CDT CHOLECYSTECTOMY LAPAROSCOPIC 11/27/2018 1:20 PM CDT VERIFICATION BLOOD GROUP Stat 11/27/2018 8:19 AM CDT Acute cholecystitis HCG QUALITATIVE, URINE Routine 9 7:09 AM CDT CBC WITH DIFFERENTIAL Routine 11/27/2018 7:05 AM CDT TYPE AND SCREEN Routine 11/27/2018 7:05 AM CDT PHOSPHORUS Routine 11/27/2018 7:05 AM CDT MAGNESIUM LEVEL Routine 11/27/2018 7:05 AM CDT COMPREHENSIVE METABOLIC PANEL Routine 11/27/2018 7:05 AM CDT CBC WITH DIFFERENTIAL Stat 11/26/2018 11:13 PM CDT LIPASE Routine 11/26/2018 11:13 PM CDT COMPREHENSIVE METABOLIC PANEL Stat 11/26/2018 11:13 PM CDT documented in this encounter Results * PATHOLOGY (11/27/2018 2:41 PM CDT) CASE REPORT Surgical Pathology Report ? Case: [id number] ? Authorizing Provider: ??Ignacio Frost MD ? Collected: ? 11/27/2018 02:41 PM ? Ordering Location: ? [facility] ?Received: ?11/29/2018 07:25 AM ? Operating Room ? Pathologist: ? Kirstin Chen MD ? Specimen: ?Gallbladder ? 12/01/2018 8:30 AM [facility] [employer] [facility] FINAL DIAGNOSIS Gallbladder, cholecystectomy: - Cholelithiasis. - Moderate chronic inflammation. - Cholesterolosis. 12/01/2018 8:30 AM [facility] [employer] [facility] IMEN DESCRIPTION Gallbladder. 12/01/2018 8:30 AM [facility] [employer] [facility] OPERATIVE PROCEDURE Cholecystectomy laparoscopic, possible open. 12/01/2018 8:30 AM [facility] [employer] [facility] CLINICAL DIAGNOSIS Not provided. 12/01/2018 8:30 AM [facility] [employer] [facility] GROSS DESCRIPTION Received in a single container labeled Kayla Avila and gallbladder is a slightly disrupted gallbladder measuring 7.8 x 2.7 x 1.5 cm. The clamped cystic duct margin appears patent with a diameter of 0.1 cm. The serosa is smooth, yip-green. The mucosa is bile-stained green and appears velvety with faint yellow stippling. The wall thickness measures up to 0.4 cm. The lumen is filled with abundant viscous, yellow-green bile and contains multiple irregular, yellow-green stones measuring up to 0.6 cm in greatest dimension. A discrete pericystic lymph node is not identified. Definitive lesions are not identified within the gallbladder. Snap Attacher sections, to include the cystic duct margin, are submitted labeled A1. ALG/pjs 12/01/2018 8:30 AM [facility] [employer] [facility] MICROSCOPIC DESCRIPTION The slide is labeled [id number] and Kayla Avila. Microscopic examination substantiates the above diagnosis. 12/01/2018 8:30 AM CDT [facility] COMMENT Special stain and/or immunohistochemical results are interpreted with controls that demonstrate appropriate staining reactions. Note on use of immunocytochemistry reagents: This test was developed and its performance characteristic determined by [facility], Department of Laboratory Medicine. It has not been cleared or approved by the U.S. Food and Drug Administration. The FDA has determined that such clearance or approval is not necessary. The test is used for clinical purpose. It should not be regarded as investigational or for research. This laboratory is certified to perform high complexity testing. Case types starting with WS, WF, WB and WH are performed by [address], [address]. All other case types are performed by [address], [address]. 12/01/2018 8:30 AM CDT [facility] Tissue ENTIRE GALLBLADDER / Unknown Collection / Unknown 11/27/2018 2:41 PM CDT 11/29/2018 7:25 AM CDT Ignacio Frost MD PATHOLOGY/CYTOLOGY O HITESH Performing Organization Address City/[facility]/ZIP Co de Phone Number [facility] CLIA# [id number] [address] [place], [place] [address] [address] * VERIFICATION BLOOD GROUP (11/27/2018 8:19 AM CDT) ABO GROUP O 11/27/2018 11:[address] [facility] RH (D) TYPE Negative 11/27/2018 11:[address] [facility] Blood Collection / Unknown 11/27/2018 8:19 AM CDT 11/27/2018 8:23 AM CDT Meme Guan MD BLOOD BANK [facility]EB [facility]# [id number] [address] [place] [address] * HCG QUALITATIVE, URINE (11/27/2018 7:09 AM CDT) Pathologist [facility] HCG QUAL URINE Negative Negative 11/27/2018 7:33 AM CDT [facility] LABORATORY SERVICES - [facility] COLOR UA Yellow Pale to Dark Yellow 11/27/2018 7:33 AM CDT [facility] LAB[facility]ORY SERVICES - [facility] CLARITY UA Clear Clear 11/27/2018 7:33 AM CDT [facility]ORY SERVICES - [facility] Urine URINE SPECIMEN OBTAINED BY CLEAN CATCH PROCEDURE / Unknown Collection / Unknown 11/27/2018 7:09 AM CDT 11/27/2018 7:17 AM CDT Ignacio Frost MD URINE ORDERABLES [facility] [employer] SERVICES - [facility]# [id number] [address] [place], [place] [address] * TYPE AND SCREEN (11/27/2018 7:05 AM CDT) Pathologist [facility] ABO GROUP O 11/27/2018 8:08 AM CDT [facility] LABOR[facility]ORY SERVICES -- [facility] RH (D) TYPE Negative 11/27/2018 8:08 AM CDT [facility]ORY SERVICES -- [facility] ANTIBODY SCREEN Negative 11/27/2018 8:08 AM CDT [facility]ORY SERVICES -- [facility] Blood Venipuncture / Unknown 11/27/2018 7:05 AM CDT 11/27/2018 7:12 AM CDT Ignacio Frost MD BLOOD BANK ORDERABLE S [facility] [employer] [facility]# [id number] [address] [place] [address] * (ABNORMAL) COMPREHENSIVE METABOLIC PANEL (11/27/2018 7:05 AM CDT) Pathologist [facility] SODIUM 138 136 - 145 mmol/L 11/27/2018 7:53 AM [facility] [employer] LABORATORY SERVICES - [facility] POTASSIUM 3.5 3.5 - 5.0 mmol/L 11/27/2018 7:53 AM [facility] [employer] LABORATORY SERVICES - [facility] CHLORIDE 103 98 - 107 mmol/L 11/27/2018 7:53 AM [facility] [employer] LAB[facility]ATORY SERVICES - [facility] CO2 24 22 - 29 mmol/L 11/27/2018 7:53 AM [facility] [employer] LAB[facility]ATORY SERVICES - [facility] CALCIUM 8.7 8.6 - 10.2 mg/dL 11/27/2018 7:53 AM [facility] [employer] [facility]ATORY SERVICES - [facility] BUN 3(L) 6 - 20 mg/dL 11/27/2018 7:53 AM [facility] [employer] LABORATORY SERVICES - [facility] CREATININE 0.55 0.51 - 0.95 mg/dL 11/27/2018 7:53 AM [facility] [employer] LABORATORY SERVICES - [facility] GLUCOSE 90 74 - 99 mg/dL 11/27/2018 7:53 AM [facility] [employer] LAB[facility]ATORY SERVICES - [facility] TOTAL PROTEIN 6.2(L) 6.7 - 8.6 g/dL 11/27/2018 7:53 AM [facility] [employer] LABORATORY SERVICES - [facility] ALBUMIN 3.4(L) 3.5 - 5.2 g/dL 11/27/2018 7:53 AM [facility] [employer] LABORATORY SERVICES - [facility] BILIRUBIN TOTAL 0.6 0.3 - 1.2 mg/dL 11/27/2018 7:53 AM [facility] [employer] LABORATORY SERVICES - [facility] ALKALINE PHOSPHATASE 135(H) 35 - 104 U/L 11/27/2018 7:53 AM [facility] [employer] [facility] AST 56(H) <33 U/L 11/27/2018 7:53 AM [employer] LABORATORY [facility] ALT 80(H) <34 U/L 11/27/2018 7:53 AM [facility] [employer] LABORATORY [facility] GFR >60 >=60 mL/min/1.7 3 sq meter 11/27/2018 7:53 AM [facility] [employer] SERVICES - [facility] Comment: eGFR has not been validated for use in the elderly (> 70 years of age), women, patients with serious co-morbid conditions, or persons with extremes of body size or muscle mass and should also be interpreted with caution in patients with acute kidney failure, dialysis dependent patients, patients reporting exceptional dietary intake (e.g. vegetarian diet, high protein diets, creatine supplementation), and patients with severe liver disease. Based on National Kidney Disease Education Program If patient is , please refer to the GFR result. GFR, >60 >=60 mL/min/1.7 3 sq meter 11/27/2018 7:53 AM T [facility] [employer] [facility] ANION GAP 11 8 - 16 mmol/L 11/27/2018 7:53 AM [facility] [employer] [facility] Blood Venipuncture / Unknown 11/27/2018 7:05 AM CDT 11/27/2018 7:11 AM T [facility] LABORATORY [facility] - 11/27/2018 7:53 AM CDT Samples containing indocyanine green cause interferences on Total and/or Direct Bilirubin and must not be measured. Ignacio Frost MD CHEMISTRY ORDERABLES [facility]# [id number] [address] [place] [address] [place] [address] * (ABNORMAL) CBC WITH DIFFERENTIAL (11/27/2018 7:05 AM CDT) WBC 4.9 4.0 - 9.8 K/uL 11/27/2018 7:24 AM [facility] RBC 3.54(L) 3.90 - 4.90 M/uL 11/27/2018 7:24 AM [facility] [employer] [facility] HEMOGLOBIN 11.8 11.8 - 14.8 g/dL 11/27/2018 7:24 AM [facility] HEMATOCRIT 34.6(L) 35.5 - 44.0 % 11/27/2018 7:24 AM [facility] [employer] [facility] MCV 97.7 82.0 - 99.0 fL 11/27/2018 7:24 AM [facility] [employer] [facility] MCH 33.3(H) 27.2 - 32.6 pg 11/27/2018 7:24 AM CDT [employer] LABORATORY SERVICES - [facility] MCHC 34.1 31.5 - 35.5 g/dL 11/27/2018 7:24 AM CDT [employer] LABORATORY SERVICES - [facility] RDW 13.1 11.5 - 14.5 % 11/27/2018 7:24 AM CDT [employer] LABORATORY SERVICES - [facility] RDW-STDEV 47.4 37.1 - 48.7 fL 11/27/2018 7:24 AM CDT [employer] LABORATORY SERVICES - [facility] PLATELETS 201 140 - 350 K/uL 11/27/2018 7:24 AM CDT [employer] LABORATORY SERVICES - [facility] MPV 11.2 9.3 - 12.4 fL 11/27/2018 7:24 AM CDT [facility] LABORATORY SERVICES - . [facility] NEUTROPHILS 58 % 11/27/2018 7:24 AM CDT [facility]ATORY SERVICES - [facility] LYMPHOCYTES 30 % 11/27/2018 7:24 AM CDT [facility]AT[facility] SERVICES - [facility] MONOCYTES 10 % 11/27/2018 7:24 AM CDT [facility]ATORY SERVICES - [facility] EOSINOPHILS 2 % 11/27/2018 7:24 AM CDT [facility] LABORATORY SERVICES - . [facility] BASOPHILS 1 % 11/27/2018 7:24 AM CDT [facility] LAB[facility]ATORY SERVICES - . [facility] IMMATURE GRANULOCYTES 0 % 11/27/2018 7:24 AM CDT [facility] LABORATORY SERVICES - . [facility] NEUTROPHIL ABSOLUTE 2.83 1.90 - 7.00 K/uL 11/27/2018 7:24 AM CDT [employer] LABORATORY SERVICES - . [facility] LYMPHOCYTE ABSOLUTE 1.45 0.70 - 4.50 K/uL 11/27/2018 7:24 AM CDT [employer] LABORATORY SERVICES - . [facility] MONOCYTE ABSOLUTE 0.50 0.10 - 1.30 K/uL 11/27/2018 7:24 AM CDT [facility] LABORATORY SERVICES - [facility] EOSINOPHIL ABSOLUTE 0.09 0.00 - 0.70 K/uL 11/27/2018 7:24 AM CDT [facility] LAB[facility]ATORY SERVICES - [facility] BASOPHILS ABSOLUTE 0.03 0.00 - 0.20 K/uL 11/27/2018 7:24 AM CDT [facility] LABORATORY SERVICES - . [facility] IMMATURE GRANULOCYTES ABSOLUTE 0.01 0.00 - 0.03 K/uL 11/27/2018 7:24 AM CDT [facility] Blood Venipuncture / Unknown 11/27/2018 7:05 AM CDT 11/27/2018 7:11 AM CDT Ignacio Frost MD HEMATOLOGY ORDERABLE S [facility]# [id number] [address] [place] [address] * PHOSPHORUS (11/27/2018 7:05 AM CDT) PHOSPHORUS 3.1 2.5 - 4.5 mg/dL 11/27/2018 7:53 AM CDT [facility] Blood Venipuncture / Unknown 11/27/2018 7:05 AM CDT 11/27/2018 7:11 AM CDT Ignacio Frost MD CHEMISTRY ORDERABLES Performing Organization Address [facility]/ZIP Co de Phone Number [facility]# [id number] [address] [place] [address] * MAGNESIUM LEVEL (11/27/2018 7:05 AM CDT) MAGNESIUM 1.7 1.6 - 2.6 mg/dL 11/27/2018 7:53 AM CDT [facility] Blood Venipuncture / Unknown 11/27/2018 7:05 AM CDT 11/27/2018 7:11 AM CDT Ignacio Frost MD CHEMISTRY ORDERABLES [facility]# [id number] [address] [place] [address] * LIPASE (11/26/2018 11:13 PM CDT) LIPASE 18 13 - 60 U/L 11/27/2018 2:10 AM T [facility] LABORATORY SERVICES - [facility] Blood Venipuncture / Unknown 11/26/2018 11:13 PM CDT 11/26/2018 11:17 PM CDT Ignacio Frost MD CHEMISTRY ORDERABLES [facility] LABORATORY SERVICES - [facility]# [id number] [address] [facility] [place] [address] * (ABNORMAL) COMPREHENSIVE METABOLIC PANEL (11/26/2018 11:13 PM CDT) SODIUM 139 136 - 145 mmol/L 11/26/2018 11:45 PM [facility] [employer] LABORATORY SERVICES - [facility] POTASSIUM 3.4(L) 3.5 - 5.0 mmol/L 11/26/2018 11:45 PM [facility] [employer] LABORATORY SERVICES - [facility] CHLORIDE 105 98 - 107 mmol/L 11/26/2018 11:45 PM [facility] LABORATORY SERVICES - [facility] CO2 24 22 - 29 mmol/L 11/26/2018 11:45 PM [facility] LABORATORY SERVICES - [facility] CALCIUM 8.9 8.6 - 10.2 mg/dL 11/26/2018 11:45 PM [facility] LABORATORY SERVICES - [facility] BUN 4(L) 6 - 20 mg/dL 11/26/2018 11:45 PM [facility] LABORATORY SERVICES - [facility] CREATININE 0.56 0.51 - 0.95 mg/dL 11/26/2018 11:45 PM T [facility] LABORATORY SERVICES - [facility] GLUCOSE 94 74 - 99 mg/dL 11/26/2018 11:45 PM [facility] [employer] LABORATORY SERVICES - [facility] TOTAL PROTEIN 6.2(L) 6.7 - 8.6 g/dL 11/26/2018 11:45 PM [facility] LABORATORY SERVICES - [facility] ALBUMIN 3.4(L) 3.5 - 5.2 g/dL 11/26/2018 11:45 PM [facility] [employer] LABORATORY SERVICES - [facility] BILIRUBIN TOTAL 0.5 0.3 - 1.2 mg/dL 11/26/2018 11:45 PM CDT [facility] ALKALINE PHOSPHATASE 136(H) 35 - 104 U/L 11/26/2018 11:45 PM T [facility] AST 53(H) <33 U/L 11/26/2018 11:45 PM T [facility] ALT 80(H) <34 U/L 11/26/2018 11:45 PM [facility] GFR >60 >=60 mL/min/1.7 3 sq meter 11/26/2018 11:45 PM T [facility] Comment: eGFR has not been validated for use in the elderly (> 70 years of age), women, patients with serious co-morbid conditions, or persons with extremes of body size or muscle mass and should also be interpreted with caution in patients with acute kidney failure, dialysis dependent patients, patients reporting exceptional dietary intake (e.g. vegetarian diet, high protein diets, creatine supplementation), and patients with severe liver disease. Based on National Kidney Disease Education Program If patient is , please refer to the GFR result. GFR, >60 >=60 mL/min/1.7 3 sq meter 11/26/2018 11:45 PM CDT [facility] ANION GAP 10 8 - 16 mmol/L 11/26/2018 11:45 PM [facility] Blood Venipuncture / Unknown 11/26/2018 11:13 PM CDT 11/26/2018 11:17 PM CDT Narrative [facility] - 11/26/2018 11:45 PM CDT Samples containing indocyanine green cause interferences on Total and/or Direct Bilirubin and must not be measured. Ignacio Frost MD CHEMISTRY ORDERABLES [facility]# [id number] [address] [facility] [place] [address] * (ABNORMAL) CBC WITH DIFFERENTIAL (11/26/2018 11:13 PM CDT) WBC 5.5 4.0 - 9.8 K/uL 11/26/2018 11:23 PM CDT [facility] LABORATORY SERVICES - [facility] RBC 3.42(L) 3.90 - 4.90 M/uL 11/26/2018 11:23 PM CDT [facility] LABORATORY SERVICES - [facility] HEMOGLOBIN 11.2(L) 11.8 - 14.8 g/dL 11/26/2018 11:23 PM CDT [facility] LABORATORY SERVICES - [facility] HEMATOCRIT 33.8(L) 35.5 - 44.0 % 11/26/2018 11:23 PM CDT [facility] LABORATORY SERVICES - [facility] MCV 98.8 82.0 - 99.0 fL 11/26/2018 11:23 PM CDT [facility] LABORATORY SERVICES - [facility] MCH 32.7(H) 27.2 - 32.6 pg 11/26/2018 11:23 PM CDT [facility] LABORATORY SERVICES - [facility] MCHC 33.1 31.5 - 35.5 g/dL 11/26/2018 11:23 PM CDT [facility] LABORATORY SERVICES - [facility] RDW 13.0 11.5 - 14.5 % 11/26/2018 11:23 PM CDT [facility] LABORATORY SERVICES - [facility] RDW-STDEV 46.9 37.1 - 48.7 fL 11/26/2018 11:23 PM CDT [facility] LABORATORY SERVICES - [facility] PLATELETS 187 140 - 350 K/uL 11/26/2018 11:23 PM CDT [facility] LABORATORY SERVICES - [facility] MPV 11.2 9.3 - 12.4 fL 11/26/2018 11:23 PM CDT [facility] LABORATORY SERVICES - [facility] NEUTROPHILS 60 % 11/26/2018 11:23 PM CDT [facility] LABORATORY SERVICES - . [facility] LYMPHOCYTES 29 % 11/26/2018 11:23 PM CDT [facility] LABORATORY SERVICES - . [facility] MONOCYTES 10 % 11/26/2018 11:23 PM CDT [facility] LABORATORY SERVICES - . [place] EOSINOPHILS 2 % 11/26/2018 11:23 PM CDT [facility] LABORATORY SERVICES - . [place] BASOPHILS 0 % 11/26/2018 11:23 PM CDT [facility] LABORATORY SERVICES - . [facility] IMMATURE GRANULOCYTES 0 % 11/26/2018 11:23 PM CDT [facility] LABORATORY SERVICES - [facility] NEUTROPHIL ABSOLUTE 3.27 1.90 - 7.00 K/uL 11/26/2018 11:23 PM CDT [facility] LABORATORY SERVICES - . [facility] LYMPHOCYTE ABSOLUTE 1.56 0.70 - 4.50 K/uL 11/26/2018 11:23 PM CDT [facility] LABORATORY SERVICES - [facility] MONOCYTE ABSOLUTE 0.52 0.10 - 1.30 K/uL 11/26/2018 11:23 PM CDT [facility] LABORATORY SERVICES - [facility] EOSINOPHIL ABSOLUTE 0.09 0.00 - 0.70 K/uL 11/26/2018 11:23 PM CDT [facility] LABORATORY SERVICES - . [place] BASOPHILS ABSOLUTE 0.02 0.00 - 0.20 K/uL 11/26/2018 11:23 PM CDT [facility] LABORATORY SERVICES - . [facility] IMMATURE GRANULOCYTES ABSOLUTE 0.01 0.00 - 0.03 K/uL 11/26/2018 11:23 PM CDT [facility] LABORATORY SERVICES - . [facility] Blood Venipuncture / Unknown 11/26/2018 11:13 PM CDT 11/26/2018 11:17 PM CDT Ignacio Frost MD HEMATOLOGY ORDERABLE S [facility] LABORATORY SERVICES [facility]# [id number] [address] [place] [address] documented in this encounter Visit Diagnoses Diagnosis Acute cholecystitis- Primary Acute cholecystitis Arthralgia of left temporomandibular joint Arthralgia of temporomandibular joint documented in this encounter Administered Medications Inactive Administered Medications - up to 3 most recent administrations Medication Order MAR Action Action Date Dose Rate Site diphenhydrAMINE (BENADRYL) injection 12.5 mg 12.5 mg, IV, POST-PROCEDURE ONCE PRN, 2 doses, Starting on 11/27/18 at 1334, Until 11/27/18 at 1603, Nausea/Emesis, Routine, PACU Given 11/27/2018 3:22 PM CDT 12.5 mg fentaNYL PF (SUBLIMAZE) 50 mcg/mL injection 25 mcg 25 mcg, IV, POST-PROCEDURE Q 3 MINUTES PRN, Starting on 11/27/18 at 1334, Until 11/27/18 at 1603, Pain, For pain 1-3, Routine, PACU Given 11/27/2018 3:43 PM CDT 25 mcg Given 11/27/2018 3:30 PM CDT 25 mcg fentaNYL PF (SUBLIMAZE) 50 mcg/mL injection 50 mcg 50 mcg, IV, POST-PROCEDURE Q 3 MINUTES PRN, Starting on 11/27/18 at 1334, Until 11/27/18 at 1603, Pain, Severe, For pain scale 7-10, Routine, PACU Given 11/27/2018 3:20 PM CDT 50 mcg gabapentin (NEURONTIN) capsule 1,200 mg 1,200 mg, Oral, THREE TIMES DAILY, First dose on 11/27/18 at 0900, Until Discontinued, Routine Given 11/28/2018 8:50 AM CDT 1,200 mg Given 11/27/2018 6:03 PM CDT 1,200 mg Given 11/27/2018 9:00 AM CDT 1,200 mg HYDROcodone-acetaminophen (NORCO) 10-325 mg per tablet 1 Tablet 1 Tablet, Oral, EVERY 4 HOURS PRN, Starting on 11/27/18 at 1556, Until 11/28/18 at 1441, Pain (See admin instructions), Routine HYDROcodone-acetaminophen (NORCO) 5-325 mg per tablet 1 Tablet 1 Tablet, Oral, EVERY 4 HOURS PRN, Starting on 11/27/18 at 1556, Until 11/28/18 at 1441, Pain (See admin instructions), Routine Given 11/28/2018 6:51 AM CDT 1 Tablet Given 11/27/2018 10:54 PM CDT 1 Tablet Given 11/27/2018 5:19 PM CDT 1 Tablet lactated ringers infusion IV, at 125 mL/hr, CONTINUOUS, Starting on Thu11/26/18 at 2315, Until 11/28/18 at 1441, Routine New Bag 11/28/2018 1:07 AM CDT 125 mL /hr New Bag 11/27/2018 9:59 AM CDT 125 mL/hr New Bag 11/27/2018 6:40 AM CDT 125 mL/hr lamoTRIgine (LaMICtal) tablet 300 mg 300 mg, Oral, TWO TIMES DAILY, First dose on Thu11/26/18 at 2330, Until Discontinued, Routine lamoTRIgine (LaMICtal) tablet 50 mg 50 mg, Oral, TWO TIMES DAILY, First dose on Thu11/26/18 at 2330, Until Discontinued, Routine levETIRAcetam (KEPPRA) tablet 2,000 mg 2,000 mg, Oral, TWO TIMES DAILY, First dose on Thu11/26/18 at 2315, Until Discontinued, Routine Given 11/28/2018 8:49 AM CDT 2,000 mg Given 11/28/2018 1:02 AM CDT 2,000 mg Given 11/27/2018 9:00 AM CDT 2,000 mg morphine 4 mg/mL injection 2 mg 2 mg, IV, EVERY 4 HOURS PRN, Starting on Thu11/26/18 at 2303, Until Thu11/28/18 at 1441, Pain (See admin instructions), Routine Given 11/28/2018 9:07 AM CDT 2 mg Given 11/28/2018 1:03 AM CDT 2 mg Given 11/27/2018 8:40 PM CDT 2 mg naloxone (NARCAN) 0.4 mg/mL injection 0.1 mg 0.1 mg, IV, SEE ADMIN INSTRUCTIONS, Starting on Thu11/26/18 at 2303, Until Thu11/28/18 at 1441, Routine ondansetron (ZOFRAN) 4 mg/2 mL injection 4 mg 4 mg, IV, EVERY 6 HOURS PRN, Starting on Thu11/26/18 at 2303, Until Thu11/28/18 at 1441, Nausea/Emesis, Routine Given 11/27/2018 8:40 PM CDT 4 mg Given 11/27/2018 6:43 AM CDT 4 mg Given 11/26/2018 11:51 PM CDT 4 mg piperacillin-tazobactam (ZOSYN) 3.375 gram in dextrose (iso-osmotic) 50 mL IVPB 3.375 Gram, IV, EVERY 6 HOURS, First dose on Thu11/27/18 at 0300, Until Discontinued, Routine, Antibiotic Indication: Intra-abdominal infection / Fecal Contamination New Bag 11/28/2018 8:55 AM CDT 3.375 Grams 100 mL/hr New Bag 11/28/2018 3:20 AM CDT 3.375 Grams 100 mL/hr New Bag 11/27/2018 8:45 PM CDT 3.375 Grams 100 mL/hr documented in this encounter Active and Recently Administered Medications Times are shown in CDT. Scheduled Medication Order 11/26/2018 11/27/2018 11/28/2018 gabapentin (NEURONTIN) capsule 1,200 mg 1,200 mg, Oral, THREE TIMES DAILY, First dose on Thu11/27/18 at 0900, Until Discontinued, Routine 0900 (Given - Provider: Deisy Johnston RN - Comment: NPO strict for procedure)1300 (Not Given - Provider: Deisy Johnston RN - Reason: Patient off unit)1803 (Given - Provider: Deisy Johnston RN) 0850 (Given - Provider: KYLE Ayala) lamoTRIgine (LaMICtal) tablet 300 mg(Linked Group 1) 300 mg, Oral, TWO TIMES DAILY, First dose on Thu11/26/18 at 2330, Until Discontinued, Routine 2330 (Refused - Provider: Nettie Nathan RN) 0900 (Not Given - Provider: Deisy Johnston RN - Reason: Patient NPO - Comment: NPO strict for procedure)2100 (Refused - Provider: Nettie Nathan RN) 0900 (Refused - Provider: KYLE Ayala - Comment: said she is working up to taking these pills) lamoTRIgine (LaMICtal) tablet 50 mg(Linked Group 1) 50 mg, Oral, TWO TIMES DAILY, First dose on Thu11/26/18 at 2330, Until Discontinued, Routine 2330 (Refused - Provider: Nettie Nathan RN) 0900 (Not Given - Provider: Deisy Johnston RN - Reason: Patient NPO - Comment: NPO strict for procedure)2100 (Refused - Provider: Nettie Nathan RN) 0900 (Refused - Provider: KYLE Ayala - Comment: said she is working up to taking these) levETIRAcetam (KEPPRA) tablet 2,000 mg 2,000 mg, Oral, TWO TIMES DAILY, First dose on Thu11/26/18 at 2315, Until Discontinued, Routine 0049 (Given - Provider: Nettie Nathan RN)0900 (Given - Provider: Deisy Johnston RN - Comment: NPO strict for procedure) 0102 (Given - Provider: Nettie Nathan RN)0849 (Given - Provider: KYLE Ayala) naloxone (NARCAN) 0.4 mg/mL injection 0.1 mg 0.1 mg, IV, SEE ADMIN INSTRUCTIONS, Starting on Thu11/26/18 at 2303, Until 11/28/18 at 1441, Routine piperacillin-tazobactam (ZOSYN) 3.375 gram in dextrose (iso-osmotic) 50 mL IVPB 3.375 Gram, IV, EVERY 6 HOURS, First dose on 11/27/18 at 0300, Until Discontinued, Routine, Antibiotic Indication: Intra-abdominal infection / Fecal Contamination 0330 (New Bag - Provider: Nettie Nathan RN)0400 (Stopped - Provider: Nettie Nathan RN)0905 (New Bag - Provider: Deisy Johnston RN)0935 (Stopped - Provider: Deisy Johnston RN)1643 (New Bag - Provider: Deisy Johnston RN)1713 (Stopped - Provider: Deisy Johnston RN)2045 (New Bag - Provider: Nettie Nathan RN)2115 (Stopped - Provider: Nettie Nathan RN) 0320 (New Bag - Provider: Nettie Nathan RN)0350 (Stopped - Provider: Nettie Nathan RN)0855 (New Bag - Provider: KYLE Ayala)0925 (Stopped - Provider: KYLE Ayaal) traZODone (DESYREL) tablet 100 mg 100 mg, Oral, DAILY AT BEDTIME, First dose on Thu11/26/18 at 2315, Until Discontinued, Routine 2315 (Refused - Provider: Nettie Nathan RN) 2100 (Refused - Provider: Nettie Nathan RN) Continuous Medication Order 11/26/2018 11/27/2018 11/28/2018 lactated ringers infusion IV, at 125 mL/hr, CONTINUOUS, Starting on Thu11/26/18 at 2315, Until 11/28/18 at 1441, Routine 2357 (New Bag - Provider: Nettie Nathan RN) 0640 (New Bag - Provider: Nettie Nathan RN)0959 (New Bag - Provider: Soledad Fox RN)1451 (Fluid Volume - Provider: ABRAN Fernandes) 0107 (New Bag - Provider: Nettie Nathan RN) PRN Medication Order 11/26/2018 11/27/2018 11/28/2018 bupivacaine-EPINEPHri ne (PF) (SENSORCAINE MPF WITH EPI) 0.5 %-1:200,000 injection (CANCELED) INTRA-PROCEDURE PRN, Starting on 11/27/18 at 1439, Until 11/27/18 at 1457, Routine, Intra-op 1439 (Given - Provider: Ignacio Frost MD) diphenhydrAMINE (BENADRYL) injection 12.5 mg (CANCELED) 12.5 mg, IV, POST-PROCEDURE ONCE PRN, 2 doses, Starting on 11/27/18 at 1334, Until 11/27/18 at 1603, Nausea/Emesis, Routine, PACU 1522 (Given - Provider: Arin Sy RN) fentaNYL PF (SUBLIMAZE) 50 mcg/mL injection 25 mcg (CANCELED) 25 mcg, IV, POST-PROCEDURE Q 3 MINUTES PRN, Starting on 11/27/18 at 1334, Until 11/27/18 at 1603, Pain, For pain 1-3, Routine, PACU 1530 (Given - Provider: Arin Sy RN)1543 (Given - Provider: Arin Sy RN) fentaNYL PF (SUBLIMAZE) 50 mcg/mL injection 50 mcg (CANCELED) 50 mcg, IV, POST-PROCEDURE Q 3 MINUTES PRN, Starting on 11/27/18 at 1334, Until 11/27/18 at 1603, Pain, Severe, For pain scale 7-10, Routine, PACU 1520 (Given - Provider: Arin Sy, CHIN) HYDROcodone-acetamino phen (NORCO) 10-325 mg per tablet 1 Tablet(Linked Group 2) 1 Tablet, Oral, EVERY 4 HOURS PRN, Starting on 11/27/18 at 1556, Until 11/28/18 at 1441, Pain (See admin instructions), Routine 1719 (See Alternative - Provider: Deisy Johnston RN)2254 (See Alternative - Provider: Nettie Nathan RN) 0651 (See Alternative - Provider: Nettie Nathan RN) HYDROcodone-acetamino phen (NORCO) 5-325 mg per tablet 1 Tablet(Linked Group 2) 1 Tablet, Oral, EVERY 4 HOURS PRN, Starting on 11/27/18 at 1556, Until 11/28/18 at 1441, Pain (See admin instructions), Routine 1719 (Given - Provider: Deisy Johnston RN)2254 (Given - Provider: Nettie Nathan RN) 0651 (Given - Provider: Nettie Nathan RN) morphine 4 mg/mL injection 2 mg 2 mg, IV, EVERY 4 HOURS PRN, Starting on 11/26/18 at 2303, Until 11/28/18 at 1441, Pain (See admin instructions), Routine 2350 (Given - Provider: Nettie Nathan RN) 0354 (Given - Provider: Nettie Nathan RN)0816 (Given - Provider: Deisy Johnston RN)1338 (Given - Provider: Soledad Fox RN - Comment: per orders from Dr Day)2040 (Given - Provider: Nettie Nathan RN) 0103 (Given - Provider: Nettie Nathan RN)0907 (Given - Provider: KYLE Ayala) ondansetron (ZOFRAN) 4 mg/2 mL injection 4 mg 4 mg, IV, EVERY 6 HOURS PRN, Starting on 11/26/18 at 2303, Until 11/28/18 at 1441, Nausea/Emesis, Routine 2351 (Given - Provider: Nettie Nathan RN) 0643 (Given - Provider: Nettie Nathan RN)2040 (Given - Provider: Nettie Nathan RN) sodium chloride 0.9 % irrigation solution (CANCELED) INTRA-PROCEDURE PRN, Starting on 11/27/18 at 1440, Until 11/27/18 at 1457, Routine, Intra-op 1440 (Given - Provider: Ignacio Frost MD - Comment: on sterile field for prn irrigation) Linked Groups Order Group 1: lamoTRIgine (LaMICtal) tablet 300 mgJump to med 300 mg, Oral, TWO TIMES DAILY, First dose on Thu11/26/18 at 2330, Until Discontinued, Routine And lamoTRIgine (LaMICtal) tablet 50 mgJump to med 50 mg, Oral, TWO TIMES DAILY, First dose on Thu11/26/18 at 2330, Until Discontinued, Routine Group 2: HYDROcodone-acetaminophen (NORCO) 5-325 mg per tablet 1 TabletJump to med 1 Tablet, Oral, EVERY 4 HOURS PRN, Starting on 11/27/18 at 1556, Until 11/28/18 at 1441, Pain (See admin instructions), Routine Or HYDROcodone-acetaminophen (NORCO) 10-325 mg per tablet 1 TabletJump to med 1 Tablet, Oral, EVERY 4 HOURS PRN, Starting on 11/27/18 at 1556, Until 11/28/18 at 1441, Pain (See admin instructions), Routine documented in this encounter Care Teams Zipper Repairer Relationship Specialty Start Date End Date Sg Richards MD [address] [place] [id number] PCP - General Internal Medicine 06/10/17 08/13/21 documented as of this encounter
--- OUTSIDE RECORDS SUMMARY | 2024-07-16 13:00 | XMS_ITS | Encounter Summary ---
Author Organization [facility] Address [address] [place]: Epic Prelude ADT [place] [address] Care Team Providers Care Staffing Executive Name Role Phone Sg Richards MD Primary Care Provider [phone] Encounter Details Date Type Department Care Team (Latest Contact Info) Description 06/04/2021 Travel Social History Tobacco Use Types Packs/Day [...] have Coronavirus / COVID-19? 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
--- OUTSIDE RECORDS SUMMARY | 2024-07-16 13:00 | XMS_ITS | Encounter Summary ---
Author Organization [facility] Address [address] [place]: Epic Prelude ADT [place] [address] Care Team Providers Care Coal Sample Tester Name Role Phone Davi Georges MD Primary Care Provider [phone] Encounter Details Date Type Department Care Team (Latest Contact Info) Description 08/14/2021 Travel Social History Tobacco Use Types Packs/Day [...] COVID-19? 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
--- OUTSIDE RECORDS SUMMARY | 2024-07-16 13:00 | XMS_ITS | Encounter Summary ---
Author Organization [facility] Address [address] [place] [address] Care Team Providers Care Chief Nursing Officer Name Role Phone Sg Richards MD Primary Care Provider [phone] Reason for Visit * Auth/Cert Specialty Diagnoses / Procedures Referred By Contac t Referred To Contact Diagnoses LEFT TMJ ANKYLOSIS Dylon Fung MD [address] [address] Referral ID Status Reason Start Date Expiration Date Visits Re quested Visits Authorized [id number] 12/17/2018 1 1 Encounter Details Date Type Department Care Team (Latest Contact Info) Description 01/12/2019 10:39 AM CDT - 01/12/2019 3:43 PM CDT Hospital Encounter [facility] [address] [place] [id number] Dylon Fung MD [address] [address] Discharge Disposition: Home or Self Care Social [...] Sign Reading Time Taken Comments Blood Pressure 106/59 01/12/2019 3:35 PM CDT Pulse 87 01/12/2019 3:35 PM CDT Temperature 36.9 ??C (98.5 ??F) 01/12/2019 3:35 PM CD T Respiratory Rate 16 01/12/2019 3:35 PM CDT Oxygen Saturation 97% 01/12/2019 3:35 PM CDT Inhaled Oxygen Concentration - - Weight 81.5 kg (179 lb 9.6 oz) 01/12/2019 10:52 AM CDT Height 163.2 cm (5' 4.25 ) 01/12/2019 10:52 AM C DT Body Mass Index 30.59 01/12/2019 10:52 AM CDT documented in this encounter Discharge Instructions * Discharge Instructions* Kristi Almaraz, RN - 01/12/2019 3:06 PM CDT SAFETY For the next 24 hours, you may feel sleepy due to medicines used during your procedure. For this 24hour period or while you are on pain medication, DO NOT make any important decisions or sign any important papers. DO NOT drink any alcoholic beverages, including beer. DO NOT drive a car or operate machinery and power tools. For your safety and protection, we strongly recommend that a responsible adult be with you today and throughout the night. ACTIVITY Keep activities to a minimum (no sports or strenuous activities) for 2 days. May return to work/school in 3 days. Avoid smoking and using drinking straws. Oral Hygiene: It is important to maintain good oral hygiene postoperatively to prevent postoperative infection as well as dental decay and/or gum disease. ?? Perform warm salt water rinses regularly after eating, 1/4 tsp salt to a full cup of water afterevery meal or drink but water. ?? Tyndall your teeth regularly, do not brush the site of surgery. ?? Mechanical and manual toothbrushes alike are acceptable for postoperative dental care. ??Do not use a water pik. MEDICATIONS Headache remedies if necessary (Motrin, Advil, Nuprin, Ibuprofen, Aspirin, Tylenol, etc)-Please check with your physician before taking any of these medications. Your lips should be kept moist with a cream or ointment such as Vaseline. Prescriptions given. DIET ?? Do not eat anything hot or hard today. Resume a normal diet tomorrow. Soft food and liquids may be indicated for several days. ?? If nausea is experienced, the diet should consist of clear liquids. ?? Drink plenty of fluids. Avoid liquids with lots of acid (examples are orange and tomato juice). Apple and grape juice usually do not burn the throat. Icy, cold fluids usually are more pleasant to the throat. ?? Avoid hot coffee or hot beverages, they may lead to dry socket. ?? Signs of dehydration are: dry mouth and lips, infrequent urination, strong odor to the urine, dark urine, dry skin, fever, or listlessness. Dehydration can dry out the scab and cause bleeding. It is important to drink to prevent dehydration. ?? No straws. WOUND CARE The following conditions may occur, all of which are normal. Swelling at surgical site, stiffness of the muscles which may cause difficulty in opening the mouth, slight earache or sore throat, your other teeth may ache temporarily, slight elevation in temperature for 24-48 hours, numbness above the corners of the mouth on the side from which the tooth was removed-lasting anywhere from a few days to a few weeks, black and blue discoloration on the outside of the face near the area of surgery. It is not uncommon to have blood tinged saliva, unless socket site is actively filling up with blood apply firm pressure with gauze. If this does not resolve in 30 minutes of hard biting, replace gauze with BLACK tea bag and bite for an additional 20 minutes of FIRM biting. ?? Apply ice bag to face on operative side, 30 minutes on and 30 minutes off until bedtime and the next day. The third day, you may stop ice and start with moist heat. ?? After 48 hours, you should rinse following meals with warm salt water (Mix 1 teaspoon of salt johny 1 glass of warm water) or mouth wash. DO NOT SMOKE. Smoking postoperatively may lead to the following: -Malunion of reduced bone and/or intraoral wounds -Delayed wound healing -Necrosis of the bone, leading to: -Resection or removal of bone -Bone Grafts -Additional surgeries -Infection -Increased postoperative pain FOLLOW-UP Call the office at [phone] to make an appointment [address] Fung. Once you are home, if you develop any of the following symptoms, call your physician. Difficulty in breathing, persistent nausea or vomiting, profuse bleeding at incision site, pain that is unusual, temperature greater than 101 degrees. If you cannot contact your physician, call or come to the Emergency Room at [facility] ([phone]) or the nearest Emergency Room. In an emergency, Call 911 documented in this encounter Medications at Time [...] 150 mg by mouth 2 times daily. HYDROcodone-acetaminoph en (NORCO) 5-325 mg tablet Take 1 Tablet by mouth 2 times daily. TAKES 1 EXTRA ONE DAILY ON OCCASION 11/28/2021 documented as of this encounter H&P Notes * Wanda Peres DDS - 01/12/2019 12:23 PM CDT I have reviewed the last H&P and examined the patient today and there are no changes. Wanda Peres DDS documented in this encounter OR Notes * Operative Report - Wanda Peres DDS - 01/12/2019 1:29 PM CDT Operative Report Kayla Avila [id number] Pre-operative Diagnosis: LEFT TMJ ANKYLOSIS Post-operative Diagnosis: Same Procedure(s) and Anesthesia Type: * ORALMAXILLOFACIAL DEVICE REMOVAL - General Surgeon(s) and Role: * Dylon Fung MD - Primary * Wanda Peres DDS - Fellow Indications: Patient is a 43 year olf female S/P TMJ replacement X 2. Patient had archbars in May 2018. Patient is stable now and she is able to open her mouth upto 35mm without any tightness, hence she is ready for hardware removal. Procedure Start: 1316 Procedure End: 1325 Description of Procedure: Patient transported to OR by anesthesia service. General anesthesia induced and oral endotracheal tube placed and secured. Patient prepped and draped in standard fashion. Timeout performed. Oropharynx suctioned dry and throat pack placed. Local anesthetic consisting of 1% l idocaine with 1:100,000 epi injected 8cc in maxilla and mandible at surgical sites. Removed circumferential wires and Usman archbars. Oral cavity thoroughly irrigated with Normal Saline. Areas were hemostatic. Posterior oropharynx suctioned dry and throat pack removed. Patient turned back over to anesthesia for emergence, extubation and transport to PACU with out complication. Sponge and needle counts correct. Findings: Maximum mouth opening was up to 35-40mm. Archbars were intact with circumferential wires Specimens: * No specimens in log * Implants: * No implants in log * Estimated Blood Loss: Minimal Disposition: PACU Wanda Peres DDS * Sabrina-OP - Annie Martinez RN - 12/30/2018 3:46 PM CDT Images from the original note were not included. [facility] Pre-Procedure Instructions PACE PACE Name: Kayla Avila Age: 43 y.o. Please report to the: [x] Surgery Center [] [facility] (2nd Floor) [] Other: Date of Procedure: 01/12/19 Arrive at the time your surgeon's office has instructed. If you are unsure of the arrival time, please call your surgeon's office 24-48 hours before your surgery to confirm. PLEASE NOTIFY your surgeon promptly if you begin to feel ill prior to your surgery. A cold, sore throat, fever, or flu may require postponing the surgery to another date for your safety. Please follow these important instructions PRE-PROCEDURE DIETARY INSTRUCTIONS Follow your surgeon's instructions regarding oral intake prior to your scheduled procedure. If no specific instructions were given from your surgeon's office; below are the guidelines from the anesthesia department: NOTHING TO EAT OR DRINK AFTER MIDNIGHT EXCEPT FOR MEDICATIONS WITH A SIP OF WATER WITHIN 24 HOURS PRIOR TO SURGERY ?? SHOWER AND SHAMPOO before bed and the morning of surgery (using provided soap if instructed or using anti-bacterial soap on operative site). ?? DO NOT SHAVE near the surgical area for 24 hours prior. ?? After showering the morning of surgery, DO NOT APPLY body lotions, deodorants, colognes, lipstick, make-up, hairspray, mousse, gel, or powder. ?? DO NOT WEAR JEWELRY (rings, earrings, and body piercings), wigs, or hair pieces to the hospital. ?? SMOKING AND USE OF TOBACCO PRODUCTS We recommend patients abstain from smoking for as long as possible before and after surgery, but even quitting for a brief period is still beneficial. DO NOT SMOKE OR USE TOBACCO PRODUCTS 12 hours before arrival to hospital. ?? PLEASE DO NOT EAT anything--including GUM, CANDY, or MINTS--after midnight. You may BRUSH YOUR TEETH but do not swallow water. DAY OF SURGERY INSTRUCTIONS ?? YOU WILL NEED A RESPONSIBLE ADULT FAMILY MEMBER or FRIEND with YOU UPON DISCHARGE. YOUR SURGERY MAY BE CANCELLED IF YOU DO NOT HAVE A RESPONSIBLE ADULT WITH YOU AT DISCHARGE TO TAKE YOU HOME. It is highly suggested you have a responsible adult with you over night after receiving anesthesia agents. ?? BRING PRESCRIBED INHALERS to the hospital with you but DO NOT BRING ANY OTHER MEDICATIONS to thespital (unless otherwise instructed). ?? WEAR comfortable, loose fitting clothes to the hospital that will fit over dressings after your surgery. ?? WEAR GLASSES instead of contact lenses to the hospital; bring a case if possible for glasses, dentures, and hearing aids as you will be asked to remove these items before your surgery. ?? 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 DO NOT BRING VALUABLES or large amounts of donald with you to the hospital. ?? BRING any medical devices you need to the hospital, including CPAP, BIPAP, or WOUND VAC machines. ?? Surgical times are estimates and can vary depending on numerous factors. ?? Expect a minimum post-op recovery of 1 hour. The medical staff will provide updates to family and/or friends as appropriate. During your hospital stay you will receive [...] protect it. ADVANCED PLANNING FOR MEDICATION USE STOP Seven- fourteen (7-) DAYS PRIOR TO SURGERY the use of all vitamins, herbal supplements, and other alternative substances. STOP Seven (7) DAYS PRIOR TO SURGERY the use of any UNPRESCRIBED Aspirin, Excedrin and NSAIDs whichinclude Motrin, Ibuprofen, Aleve, and Naprosyn. CURRENT MEDICATION LIST Pre-Surgery Instructions: Medication Instructions ??? HYDROcodone-acetaminophen (NORCO) 5-325 mg tablet May take if necessary with sip of water morning of surgery ??? amoxicillin-clavulanate (AUGMENTIN) 250-125 mg tablet Take morning of surgery with sip of water ??? ondansetron (ZOFRAN) 4 mg Tablet May take if necessary with sip of water morning of surgery ??? lamoTRIgine (LaMICtal) 100 mg tablet Take morning of surgery with sip of water ??? levETIRAcetam (KEPPRA) 1,000 mg tablet Take morning of surgery with sip of water ??? primidone (MYSOLINE) 50 mg tablet CONTINUE TO TAKE USUAL ??? pantoprazole (PROTONIX) 40 mg Tablet, Delayed Release (E.C.) Take morning of surgery with sip of water ??? traZODone (DESYREL) 100 mg Oral tablet Continue taking as prescribed ??? gabapentin (NEURONTIN) 600 mg Oral tablet Take morning of surgery with sip of water ??? buPROPion SR 12 hour (WELLBUTRIN-SR) 150 mg Oral tablet Take morning of surgery with sip of water * Sabrina-OP - Annie Martinez RN - 12/30/2018 3:39 PM CDT Patient instructed to stop taking vitamins and herbal supplements 7 days prior to scheduled surgerydate. Patient also instructed to stop taking aspirin and NSAIDs (unless instructed otherwise by surgeon) 7 days prior to their scheduled surgery date.Patient was instructed to avoid shaving the surgical site for 24 hours prior to surgery. Patient instructed to not use/wear lotion, oils, cream or deodorant day of surgery. documented in this encounter Miscellaneous Notes * Care Plan - Kristi Almaraz RN - 01/12/2019 2:33 PM CDT Knowledge deficit related to post-discharge care Interventions: Assess learning needs and willingness to learn; give clear, concise explanations of the care required post-discharge; address patient/family questions and concerns; provide teaching asindicated Expected Outcome: Patient and/or family/significant other demonstrate(s) behaviors required for performance of activities enhancing recovery post-discharge Outcome Met: Questions answered. * Care Plan - Kassie Valencia RN - 01/12/2019 2:12 PM CDT Potential for pain related to surgical/procedural intervention Interventions: Assess level of pain/comfort utilizing verbal/nonverbal pain scales; assess culturalor mosque indicators attached to pain; administer pain medications as prescribed; utilize non-pharmacologic pain control and comfort measures Expected Outcome: Patient demonstrates and reports adequate pain control Outcome Met: denies pain Potential for alteration in thermoregulatory, circulatory, respiratory [...] status compatible with preoperative status Outcome Met: VSS, WNL * Care Plan - Kim Lemus RN - 01/12/2019 11:11 AM CDT Knowledge deficit related to procedure/environment Interventions: Assess learning needs and willingness to learn; give clear, concise explanations of the environment and sequence of events surrounding the periop experience; address patient/family questions and concerns; provide teaching as indicated, provide teaching related to postoperative pain assessment utilizing pain scales Expected Outcome: Patient verbalizes or demonstrates awareness/understanding of surgery and perioperative experience Outcome Met: Pt and family verbalized understanding of surgical procedure. And understanding pre opteaching. All questions answered.Knowledge deficit related to procedure/environment Interventions: Assess learning needs and willingness to learn; give clear, concise explanations of the environment and sequence of events surrounding the periop experience; address patient/family questions and concerns; provide teaching as indicated, provide teaching related to postoperative pain assessment utilizing pain scales Expected Outcome: Patient verbalizes or demonstrates awareness/understanding of surgery and perioperative experience Outcome Met: Pt and family verbalized understanding of surgical procedure. And understanding pre opteaching. All questions answered. documented in this encounter Plan of Treatment Not on file documented as of this encounter Procedures Procedure Name Priority Date/Time Associated Diagnosis Comments ORALMAXILLOFACIAL DEVICE REMOVAL 01/12/2019 11:50 AM CDT LEFT TMJ ANKYLOSIS Case Notes WORKS COMP CLAIM # [id number] CPT 23952 POC , URINE Routine 01/12/2019 11:50 AM CDT documented in this encounter Results * POC , URINE (01/12/2019 11:50 AM CDT) HCG QUAL URINE Negative Negative 01/12/2019 11:50 AM CDT [facility] Gravie [facility] [employer] WORKER NAME POC KIM LEMUS (YSABEL) 01/12/2019 11:50 AM CDT [facility] Gravie [facility] Urine 01/12/2019 11:5 0 AM CDT 01/12/2019 1:47 PM CDT Dylon Fung MD POINT OF CARE JORDIIN Cele Shah Organization Address City/State/[facility] Co de Phone Number [facility]# [id number] [address] [place] [address] documented in this encounter Visit Diagnoses Diagnosis TMJ disease- Primary Temporomandibular joint disorders, unspecified documented in this encounter Administered Medications Inactive Administered Medications - up to 3 most recent administrations Medication Order MAR Action Action Date Dose Rate Site diphenhydrAMINE (BENADRYL) injection 12.5 mg 12.5 mg, IV, POST-PROCEDURE Q 6 HOURS PRN, Starting on Thu01/12/19 at 1134, Until Thu01/12/19 at 1744, Itching, Routine, PACU diphenhydrAMINE (BENADRYL) injection 12.5 mg 12.5 mg, IV, POST-PROCEDURE ONCE PRN, 1 dose, Starting on Thu01/12/19 at 1134, Until Thu01/12/19 at 1744, Nausea/Emesis, Routine, PACU fentaNYL PF (SUBLIMAZE) 50 mcg/mL injection 25 mcg 25 mcg, IV, POST-PROCEDURE Q 3 MINUTES PRN, 5 doses, Starting on Thu01/12/19 at 1134, Until Thu01/12/19 at 1744, Pain, Routine, PACU lactated ringers infusion IV, at 150 mL/hr, PRE-PROCEDURE CONTINUOUS, Starting on Thu01/12/19 at 1115, Until Thu01/12/19 at 1744, Routine New Bag 01/12/2019 1:23 PM CDT New Bag 01/12/2019 11:49 AM CDT 150 mL/hr lactated ringers infusion IV, at 125 mL/hr, POST-PROCEDURE CONTINUOUS, Starting on Thu01/12/19 at 1145, Until Thu01/12/19 at 1744, Routine, PACU lidocaine 2 % (XYLOCAINE) injection 0.3 mL 0.3 mL, Infiltration, SEE ADMIN INSTRUCTIONS, Starting on Thu01/12/19 at 1108, Until Thu01/12/19 at 1744, Routine Given 01/12/2019 11:49 AM CDT 0.3 mL Hand, Left morphine 4 mg/mL injection 2 mg 2 mg, IV, POST-PROCEDURE Q 5 MINUTES PRN, 5 doses, Starting on Thu01/12/19 at 1134, Until Thu01/12/19 at 1744, Pain, Routine, PACU ondansetron (ZOFRAN) 4 mg/2 mL injection 4 mg 4 mg, IV, POST-PROCEDURE ONCE PRN, 1 dose, Starting on Thu01/12/19 at 1134, Until Thu01/12/19 at 1744, Nausea/Emesis, Routine, PACU documented in this encounter Active and Recently Administered Medications Times are shown in CDT. Scheduled Medication Order 01/10/2019 01/11/2019 01/12/2019 ceFAZolin in sterile water (ANCEF) 2 gram/20 mL IV Syringe (PREMIX) 2,000 mg (COMPLETED) 2,000 mg, IV, PRE-PROCEDURE ONCE, 1 dose, Starting on Thu01/12/19 at 1108, Until Thu01/12/19 at 1313, Routine, Antibiotic Indication: Surgical prophylaxis 1308 (Given - Provid er: Erma Yarbrough CRNA)1313 (Stopped - Provider: Erma Yarbrough CRNA) lidocaine 2 % (XYLOCAINE) injection 0.3 mL 0.3 mL, Infiltration, SEE ADMIN INSTRUCTIONS, Starting on Thu01/12/19 at 1108, Until Thu01/12/19 at 1744, Routine 1149 (Given - Provid er: Kim Lemus RN) lidocaine-EPINEPHrine (XYLOCAINE-EPI) 1 %-1:100,000 injection 50 mL 50 mL, Infiltration, ONE TIME ONLY, 1 dose, On Thu01/12/19 at 1115, Routine 1115 (Due) Continuous Medication Order 01/10/2019 01/11/2019 01/12/2019 lactated ringers infusion IV, at 150 mL/hr, PRE-PROCEDURE CONTINUOUS, Starting on Thu01/12/19 at 1115, Until Thu01/12/19 at 1744, Routine 1149 (New Bag - Prov ider: Kim Lemus RN)1323 (New Bag - Provider: Erma Yarbrough CRNA)1338 (Fluid Volume - Provider: Erma Yarbrough CRNA) lactated ringers infusion IV, at 125 mL/hr, POST-PROCEDURE CONTINUOUS, Starting on Thu01/12/19 at 1145, Until Thu01/12/19 at 1744, Routine, PACU 1145 (Due) PRN Medication Order 01/10/2019 01/11/2019 01/12/2019 diphenhydrAMINE (BENADRYL) injection 12.5 mg 12.5 mg, IV, POST-PROCEDURE Q 6 HOURS PRN, Starting on Thu01/12/19 at 1134, Until Thu01/12/19 at 1744, Itching, Routine, PACU diphenhydrAMINE (BENADRYL) injection 12.5 mg 12.5 mg, IV, POST-PROCEDURE ONCE PRN, 1 dose, Starting on Thu01/12/19 at 1134, Until Thu01/12/19 at 1744, Nausea/Emesis, Routine, PACU fentaNYL PF (SUBLIMAZE) 50 mcg/mL injection 25 mcg 25 mcg, IV, POST-PROCEDURE Q 3 MINUTES PRN, 5 doses, Starting on Thu01/12/19 at 1134, Until Thu01/12/19 at 1744, Pain, Routine, PACU lidocaine-EPINEPHrine (XYLOCAINE-EPI) 1 %-1:100,000 injection (CANCELED) INTRA-PROCEDURE PRN, Starting on Thu01/12/19 at 1315, Until Thu01/12/19 at 1333, Routine, Intra-op 1315 (Given - Provid er: Wanda Peres DDS) morphine 4 mg/mL injection 2 mg 2 mg, IV, POST-PROCEDURE Q 5 MINUTES PRN, 5 doses, Starting on Thu01/12/19 at 1134, Until Thu01/12/19 at 1744, Pain, Routine, PACU ondansetron (ZOFRAN) 4 mg/2 mL injection 4 mg 4 mg, IV, POST-PROCEDURE ONCE PRN, 1 dose, Starting on Thu01/12/19 at 1134, Until Thu01/12/19 at 1744, Nausea/Emesis, Routine, PACU sodium chloride 0.9 % irrigation solution (CANCELED) INTRA-PROCEDURE PRN, Starting on Thu01/12/19 at 1316, Until Thu01/12/19 at 1333, Routine, Intra-op 1323 (Given - Provid er: Wanda Peres DDS - Comment: PRN) documented in this encounter Care Teams Chief Nursing Officer Relationship Specialty Start Date End Date Sg Richards MD [address] [place] [address] PCP - General Internal Medicine 06/10/17 08/13/21 documented as of this encounter
--- OUTSIDE RECORDS SUMMARY | 2024-07-16 13:00 | XMS_ITS | Encounter Summary ---
Author Organization [facility] Address [address] [place] [address] Care Team Providers Care Cordwood Cutter Name Role Phone Sg Richards MD Primary Care Provider [phone] Reason for Visit * Reason Comments Post-op Visit * Eval and Treat (Routine) - Closed Specialty Diagnoses / Procedures Referred By Contac t Referred To Contact Surgery / General Surgery Diagnoses Acute cholecystitis Referral Requested 01/14-pb PO-1-LAP LEMUEL 11/27 MM Procedures POST OP Sg Richards MD [address] [place] [address] Ignacio Frost MD NO ADDRESS ON FILE Referral ID Status Reason Start Date Expiration Date Visits Re quested Visits Authorized [id number] Closed 01/18/2019 02/18/2020 12 12 Encounter Details Date Type Department Care Team (Latest Contact Info) Description 01/18/2019 1:45 PM CDT Office Visit [facility] Trauma and General Surgery [address] [address] Ignacio Frost MD NO ADDRESS ON FILE Postoperative visit (Primary Dx) Social History Tobacco Use Types [...] Sign Reading Time Taken Comments Blood Pressure 114/78 01/18/2019 2:12 PM CDT Pulse - - Temperature - - Respiratory Rate - - Oxygen Saturation - - Inhaled Oxygen Concentration - - Weight 81.2 kg (179 lb) 01/18/2019 2:12 PM CDT Height 162.6 cm (5' 4 ) 01/18/2019 2:12 PM CDT Body Mass Index 30.73 01/18/2019 2:12 PM CDT documented in this encounter Progress Notes * Ignacio Frost MD - 01/18/2019 2:36 PM CDT 1975 43 y.o. Kayla Avila presents for follow-up s/p laparoscopic cholecystectomy on 11/27. She has no complaints. She did mention that she had heard that Augmentin can cause cholelithiasis. We discussed that there is no association between the two that I am aware of. A/P: Pathology reviewed and benign Activity restrictions and progression reviewed F/U prn Review of Systems Constitutional: Weight stable, - fatigue Eyes: - loss of peripheral vision Ear, Nose, Mouth, Throat: No complaints Cardiovascular: - palpitations; denies chest pain; denies calf pain Respiratory: - shortness of breath on exertion Gastrointestinal: Appetite good, denies heartburn and indigestion. - episodes of nausea Urinary: Denies incontinence, frequency, urgency Skin: - clammy, moist skin Neurological: - fainting; denies numbness, tingling, and tremors Psychiatric: Denies memory loss or depression Blood pressure 114/78, height 5' 4 (1.626 m), weight 81.2 kg (179 lb), last menstrual period 12/24/2018, not currently . Exam: General: A&O x3 Head: normocephalic Eyes: anicteric sclerae Chest: CTAB Heart: RRR, no m/g/r Abdomen: soft, NT, ND, no masses Incision: Well-healed, no hernias Ext: no pitting edema, warm TOBACCO COUNSELING She is not a tobacco user. Social, family and past medical history reviewed as well as pertinent labs and imaging in the development of my assessment and plan Patient Active Problem List Diagnosis Code ??? Seizure disorder G40.909 ??? Major depressive disorder F32.9 ??? 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 Acute cholecystitis K81.0 15 min > 50% counseling or coordinating care Ignacio Frost MD, 01/18/2019 2:36 PM Pager # [phone] * Shikha Sharif - 01/18/2019 2:13 PM CDT Pt is here for a post op visit. S/p lap lemuel 11/27. No surgical pain from gallbladder surgery. No nausea, vomiting or fevers. She states that she has not been taking the Augmentin and has been feeling much better since stopping it. She states that she needs in her chart to say that the Augmentin that she had to be on for 6 months straight for her jaw surgeries is what called all her gallbladder problems. She states that her work comp people told her they need this so they can pay us. documented in this encounter Plan of Treatment Not on file documented as of this encounter Visit Diagnoses Diagnosis Postoperative visit- Primary documented in this encounter Care Teams Cordwood Cutter Relationship Specialty Start Date End Date Sg Richards MD [address] [place] [id number] PCP - General Internal Medicine 06/10/17 08/13/21 documented as of this encounter
--- OUTSIDE RECORDS SUMMARY | 2024-07-16 13:00 | XMS_ITS | Encounter Summary ---
Author Organization [facility] Address [address] [place] [address] Care Team Providers Care Hvac Design Engineer Name Role Phone Sg Richards MD Primary Care Provider Reason for Visit * Auth/Cert Specialty Diagnoses / Procedures Referred By Contac t Referred To Contact Multi Specialty Diagnoses cholecystitis [facility] Surgical [address] [place] [address] Referral ID Status Reason Start Date Expiration Date Visits Re quested Visits Authorized [id number] 1 1 Encounter Details Date Type Department Care Team (Late st Contact Info) Description 11/27/2018 1:58 PM CDT Anesthesia Event [facility] Operating Room [address] [place] [address] Kian Day MD [address] [place] [address] Anesthesia Record Procedure Summary Procedure Name Responsible Anesthesiologist Anesthesia Start Time Anesthesia Stop Time CHOLECYSTECTOMY LAPAROSCOPIC POSS OPEN (Abdomen) Kian Day MD 11/27/18 1358 11/27/18 1506 Events Date Time Event Comment 11/27/2018 1326 AN Equip Check Anesthesia eq uipment and materials checked in accordance with local policy. 1334 1358 In Room This event disp lays the In Room time documented in the Surgical Log. Deleting this event will not remove it from the log but will remove it from the Grid and Graph timeline. 1358 An Start 1359 An Start Data 1402 Pre-Induction Immediate pre- induction anesthetic assessment performed. Vital signs as noted on graphic. 1409 An Induction 1410 An Intubation 1412 Anesthesia Ready 1421 Quick Note Timeout perform ed. 3.375 g of Zosyn, IV, given at 0905 q 6 hours. No additional antibiotics needed psr. 1423 Procedure Start This event d isplays the Procedure Start time documented in the Surgical Log. Deleting this event will not remove it from the log but will remove it from the Grid and Graph timeline. 1447 An Emergence 1455 An Extubation Emergence unev entful Awake, spontaneous respirations. Adequate muscle strength demonstrated Adequate tidal volume. Orapharynx suctioned. Extubated with positive pressure ventilation. 1457 an stop data 1506 An Stop 11/28/2018 0838 Follow-up Complete Meds Name Total midazolam PF (VERSED) 1 mg/mL injection 2 mg rocuronium (ZEMURON) 10 mg/mL 5 mL injec tion 20 mg fentaNYL (SUBLIMAZE) PF 50??mcg/mL injec tion 250 mcg lidocaine PF (XYLOCAINE MPF) 20 mg/mL sy ringe 60 mg propofol (DIPRIVAN) 10??mg/mL injection 230 mg succinycholine (ANECTINE) 140 mg/7 mL iv syringe 100 mg glycopyrrolate (ROBINUL) 0.2 mg/ mL inje ction 0.4 mg neostigmine (PROSTIGMINE) 4 mg/4 mL (1 m g/mL) injection 1.5 mg dexamethasone (DECADRON) 4 mg/mL injecti on 6 mg ondansetron (ZOFRAN) 4??mg/2 mL injectio n 4 mg diphenhydrAMINE (BENADRYL) 50 mg/mL inje ction 15 mg propofol 10 mg/mL infusion 44.22 mg lactated ringers infusion 800 mL * Agents Name Air Sevoflurane % Sevoflurane O2 N2O Inspired N2O O2 * Blood No blood administrations on file. Lines, Drains, and Airways Type Details Placement Removal Wound 08/13/12; No; 1; Lef t:; ear; surgical wound; 11/28/21; 19308/13/12 0000 by Serafin Rodriguez RN 11/28/211932 by Nettie Maguire Wound 11/03/12; 1238; No; 1; Left:; ear; surgical wound; 11/28/21; 193311/03/12 1238 by Heather Bashir RN 11/28/21 193 by Nettie Magurie Wound 11/03/12; 1402; No; 2; Left:; face; surgical wound; 11/28/21; 193311/03/12 1402 by Heather Bashir RN 11/28/211933 by Nettie Maguire PICC Single Lumen Present on Admission : No; Orientation: Left:; Location: basilic vein; Size: 4 Fr; PICC Length: 36; PICC Line Lot #: [id number]; PICC Line Family And Marriage Counsellor: Corefino; Insertion Attempts: 1; Patient Tolerance: tolerated well; Pain Prevention: intradermal injection; Power Injectable Compatible: Yes 06/19/18 0951 by Madai Curtis RN 11/27/18 1510 by Arin Sy RN Peripheral IV Pre-Hospital Start: No; Orientation: Left; Location: Hand; Gauge: 22 gauge; Removal Indication: no longer indicated; Removal Interventions: direct pressure, pressure dressing, catheter intact 11/26/18 2300 by Nettie Nathan RN 11/28/18 1129 by Meme Paniagua RN Endotracheal Airway Type: ETT, Oral (Eas y mask ventilation. Atraumatic intubation. ); Cuff Pressure: minimal leak technique, minimal occluding volume, cuff inflated; Size: 7 (Cale Flex ETT); Site: mouth; Attempts: 1 (Elective Flexible fiberoptic used with a Glidescope 3 blade to assist.); FOV: I; cm: 21; Device: FO-Flex, Video Laryngoscope; Blade: 3; Secured: secured with tape (ETT taped to the left side. Plastic tape used.); Verification: Auscultated bilateral breath sounds, Equal chest movement, Continuous waveform capnography 11/27/18 1410 by John Vinson AA-C 11/27/18 1457 by John Vinson AA-C NG/OG Tube Present on Admission : No; Type: [place] sump, orogastric; Size: 18 Fr; Location: right mouth 11/27/18 1412 by John Vinson AA-C 11/27/18 1450 by John Vinson AA-C Incision 11/27/18; 1442; surgical incision; other (comment); abdomen; 11/29/18; 0041 11/27/18 1442 by Arelis Tolbert RN 11/29/18 0041 by PROVIDER, DISCHARGE PATIENT documented in this [...] of this encounter OR Notes * Anesthesia Post-Op Follow-up Note - Baltazar Garay AA-C - 11/28/2018 8:38 AM CDT No apparent anesthesia related complications. Daria OSULLIVAN * Anesthesia Postprocedure Evaluation - Kian Day MD - 11/27/2018 3:51 PM CDT Post Anesthesia Evaluation Phase I Postanesthesia Evaluation Including Modified Archei Score Patient seen and evaluated: Modified Archie Score: COMMENTS: No apparent Anesthesia related complications RESPIRATORY FUNCTION: [2=able to breathe and cough freely, 1=dyspnea, limited breathing or tachypnea, 0=apnea or mechanicventilator] [2=able to maintain O2 saturation greater than 92% on room air, 1=needs O2 inhalation to maintain O2 saturation greater than 90%, 0=O2 saturation less than 90% even with O2 supplement] Resp: 18 (11/27/18 1520)SpO2: 97 % (11/27/18 1520) CARDIOVASCULAR FUNCTION: Heart Rate: 69 bpm (11/27/18 1520) BP: 115/62 (11/27/18 1520) [2=BP within 20% of preanesthetic level, 1=BP within 20-49% of preanesthetic level, 0=BP within 50%of preanesthetic level] MENTAL STATUS, NEURO, ACTIVITY: PATIENT PARTICIPATION IN EVALUATION:yes [2=fully awake, 1=arousable on calling, 0=not responding] [2=able to move 4 extremities voluntarily or on command, 1=able to move 2 extremities voluntarily or on command, 0=unable to move extremities voluntarily or on command] TEMPERATURE: Temp: 36.9 ??C (11/27/18 1459) PAIN: Pain Rating: Rest: 10 (11/27/18 1520) Presence of Pain: complains of pain/discomfort (11/27/18 1520) NAUSEA AND VOMITING: no nausea and no vomiting POSTOPERATIVE HYDRATION: well hydrated Intake/Output Summary (Last 24 hours) at 11/27/2018 1551 Last data filed at 11/27/2018 1451 Gross per 24 hour Intake 1050 ml Output 652 ml Net 398 ml Kian Day MD 11/27/2018 3:51 PM Vitals: Vitals Value Taken Time BP 115/62 11/27/2018 3:20 PM Temp 36.9 ??C 11/27/2018 2:59 PM Resp 18 11/27/2018 3:20 PM SpO2 97 % 11/27/2018 3:20 PM Pulse Heart Rate 69 bpm 11/27/2018 3:20 PM Pain Rating: Pain Rating: Rest: 10 (11/27/18 1520) Nausea/Vomiting: no nausea and no vomiting Post-Op hydration: well hydrated Respiratory function: no respiratory symptoms Airway patency: normal Cardiovascular function: Normal - Regular rate and rhythm Mental status, LOC: 0=alert; keenly responsive Patient participated in evaluation: yes Unanticipated Events: no Kian Day MD * Anesthesia Handoff - John Lopez AA-Rose - 11/27/2018 3:06 PM CDT Post-Anesthetic transfer of care report [...] questions and acknowledgement of understanding. Vital Signs: VSS, patient arousable, report given to CAR BUILDER. BP: 122/65 (11/27/2018 2:59 PM) Pulse: 71 (11/27/2018 9:50 AM) Heart Rate: 81 bpm (11/27/2018 2:59 PM) Temp: 36.9 ??C (11/27/2018 2:59 PM) Resp: 20 (11/27/2018 2:59 PM) SpO2: 100 % (11/27/2018 2:59 PM) 3:06 PM ABRAN Fernandes * Anesthesia Preprocedure Evaluation - Kian Day MD - 11/27/2018 1:30 PM CDT Relevant Problems No relevant active problems Anesthesia Evaluation Anesthesia Plan ASA Final: 3 General Intravenous induction Oral ETT airway maintenance NPO status > 8 hours Anesthetic plan and risks discussed with Patient. Plan discussed with Anesthesiologist Lockstitch Binder. Plan for postoperative opioid use Smoking Compliance Patient did not smoke on day of surgery Pre-Anesthesia Evaluation - Long Form 11/27/2018 1:30 PM Name: Kayla Avila Age: 43 y.o. Sex: female CSN: [id number] Procedure: Procedure(s): CHOLECYSTECTOMY LAPAROSCOPIC POSS OPEN Surgeons/Assistants: Surgeon(s) and Role: * Ignacio Frost MD - Primary Allergies Allergen Reactions ??? Adhesive Tape-Silicones Hives [...] 2 times daily. 11/02/2018 at Unknown time Patient Active Problem List Diagnosis Date Noted [...] to left jaw ??? Heart attack 2010 [place] ??? 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 Obstructive sleep [...] REMOVAL performed by Dylon Fung MD at [facility] OR [facility] ??? HX CRANIOFACIAL RECONSTRUCTION N/A 08/11/2018 ORALMAXILLOFACIAL DEVICE REMOVAL LT. MANDIBLE HARDWARE performed by Dylon Fung MD at [facility] OR [facility] ??? HX TUBAL LIGATION 04/10/15 ??? HX VAGINAL DELIVERY 09/19/1993 ??? HX WISDOM TEETH EXTRACTION TEEN ??? PA ARTHROPLASTY TMJ+PROSTHESIS N/A 11/03/2018 TEMPOROMANDIBULAR JOINT PROSTHETIC PLACEMENT performed by Dylon Fung MD at [facility] OR [facility] ??? PA EXC SKIN BENIG 0.6-1CM TRUNK,ARM,LEG 08/13/2012 CYST LESION MASS EXCISION performed by Kraig Gabriel MD at [facility] OR [facility] ??? PA EXC SKIN BENIG 0.6-1CM TRUNK,ARM,LEG 09/15/2012 CYST LESION MASS EXCISION performed by Kraig Gabriel MD at [facility] OR [facility] ??? PA EXC SKIN BENIG 0.6-1CM TRUNK,ARM,LEG Left 06/17/2018 CYST LESION MASS EXCISION performed by Kraig Gabriel MD at [facility] OR [facility] ??? PA MYRINGOPLASTY Left 06/17/2018 MYRINGOPLASTY performed by Kraig Gabriel MD at [facility] OR [facility] ??? PA NERVOUS SYSTEM SURGERY UNLISTED N/A 11/03/2018 STEROID INJECTION performed by Dylon Fung MD at [facility] OR [facility] ??? PA PREP FACE/ORAL PROST UNLISTED 06/17/2018 TEMPOROMANDIBULAR JOINT PROSTHETIC REMOVAL performed by Dylon Fung MD at [facility] OR [facility] ??? PA RECONSTR JAW,FULL,ENDO IMPLNT from 2000 to 2008 total of [address] Dylon Fung ??? PA REMOVAL SUPERFICIAL IMPLANT 11/03/2012 HARDWARE REMOVAL performed by Dylon Fung MD at [facility] OR [facility] ??? PA REMV EXT CANAL SOFT TISSUE LESN 11/03/2012 AURICULAR CYST LESION MASS EXCISION performed by Dylon Fung MD at [facility] OR [facility] Social History Tobacco Use ??? Smoking status: Former Smoker Packs/day: 0.25 Years: 3.00 Pack years: 0.75 Types: Cigarettes ??? Smokeless tobacco: Never Used Substance Use Topics ??? Alcohol use: No Alcohol/week: 0.0 oz No family history on file. Previous Anesthesia Problems/Concerns:h/o difficult intubations History of PONV No Review of Systems Cardiovascular: +CAD ? [place] Respiratory: +[place] Gastroenterology: negative, +seizure d/o: last over 12mo ago PHYSICAL EXAM BP 112/71 (BP Location: Right arm, Patient Position (BP): Supine) Pulse 71 Temp 36.7 ??C (Temporal) Resp 14 Ht 5' 4 (1.626 m) Wt 80.4 kg (177 lb 3.2 oz) LMP 11/17/2018 SpO2 100% BMI 30.42 kg/m?? Weight: Weight: 80.4 kg (177 lb 3.2 oz) (11/26/181940) Height: Ht Readings from Last 1 Encounters: 11/26/18 5' 4 (1.626 m) BMI: Body mass index is 30.42 kg/m??. Airway: normal range of motion: Airway Class: IV (only hard palate visible); Mouth Opening 2 FingerBreadth Lungs: clear to auscultation bilaterally, normal respiratory effort Heart: regular rate and rhythm, S1, S2 normal, no murmur, click, rub or gallop Neuro: alert, oriented x 3, no defects noted in general exam. Vascular Access: Peripheral Line LABS Lab Results Component Value Date/Time WBC 4.9 11/27/2018 07:05 AM HEMOGLOBIN 11.8 11/27/2018 07:05 AM HEMATOCRIT 34.6 (L) 11/27/2018 07:05 AM PLATELETS 201 11/27/2018 07:05 AM MCV 97.7 11/27/2018 07:05 AM Lab Results Component Value Date/Time SODIUM 138 11/27/2018 07:05 AM POTASSIUM 3.5 11/27/2018 07:05 AM CHLORIDE 103 11/27/2018 07:05 AM CO2 24 11/27/2018 07:05 AM CALCIUM 8.7 11/27/2018 07:05 AM BUN 3 (L) 11/27/2018 07:05 AM CREATININE 0.55 11/27/2018 07:05 AM GLUCOSE 90 11/27/2018 07:05 AM ANION GAP 11 11/27/2018 07:05 AM No results found for: INR, PT, PROTIMEPOC Lab Results Component Value Date/Time POC , URINE Negative 11/03/2012 10:53 AM HCG QUAL URINE Negative 11/27/2018 07:09 AM No results found for: GLUCPOC EKG: Other Studies/Considerations: None ASA Physical Status: ASA 3 - Patient with moderate systemic disease with functional limitations I have seen and examined this patient and confirm that all data is current and accurate. Yes Choice of Anesthesia/Anesthesia Plan: Proceed and General I have discussed the anesthetic options and the risks/benefits with the patient/family. Questions have been solicited and answered. Yes Kian Day MD documented in this encounter Plan of Treatment Not on file documented as of this encounter Visit Diagnoses Not on filedocumented in this encounter Administered Medications Inactive Administered Medications - up to 3 most recent administrations Medication Order MAR Action Action Date Dose Rate Site dexamethasone (DECADRON) injection INTRA-PROCEDURE PRN, Starting on 11/27/18 at 1428, Until 11/27/18 at 1506, Routine, Anesthesia Intra-op Given 11/27/2018 2:28 PM CDT 6 mg diphenhydrAMINE (BENADRYL) injection INTRA-PROCEDURE PRN, Starting on 11/27/18 at 1430, Until 11/27/18 at 1506, Routine, Anesthesia Intra-op Given 11/27/2018 2:30 PM CDT 15 mg fentaNYL PF (SUBLIMAZE) 50 mcg/mL injection INTRA-PROCEDURE PRN, Starting on 11/27/18 at 1423, Until 11/27/18 at 1506, Routine, Anesthesia Intra-op Given 11/27/2018 2:28 PM CDT 50 mcg Given 11/27/2018 2:23 PM CDT 100 mcg Given 11/27/2018 2:07 PM CDT 100 mcg glycopyrrolate (ROBINUL) injection INTRA-PROCEDURE PRN, Starting on 11/27/18 at 1406, Until 11/27/18 at 1506, Routine, Anesthesia Intra-op Given 11/27/2018 2:47 PM CDT 0.2 mg Given 11/27/2018 2:06 PM CDT 0.2 mg lidocaine PF (XYLOCAINE MPF) 100 mg/5 mL (2 %) injection INTRA-PROCEDURE PRN, Starting on 11/27/18 at 1407, Until 11/27/18 at 1506, Routine, Anesthesia Intra-op Given 11/27/2018 2:07 PM CDT 60 mg midazolam (PF) (VERSED) injection INTRA-PROCEDURE PRN, Starting on 11/27/18 at 1358, Until 11/27/18 at 1506, Routine, Anesthesia Intra-op Given 11/27/2018 1:58 PM CDT 2 mg neostigmine (PROSTIGMINE) 4 mg/4 mL (1 mg/mL) injection INTRA-PROCEDURE PRN, Starting on 11/27/18 at 1447, Until 11/27/18 at 1506, Routine, Anesthesia Intra-op Given 11/27/2018 2:47 PM CDT 1.5 mg ondansetron (ZOFRAN) 4 mg/2 mL injection INTRA-PROCEDURE PRN, Starting on 11/27/18 at 1428, Until 11/27/18 at 1506, Routine, Anesthesia Intra-op Given 11/27/2018 2:28 PM CDT 4 mg propofol (DIPRIVAN) 10 mg/mL continuous infusion INTRA-PROCEDURE CONTINUOUS PRN, Starting on 11/27/18 at 1434, Until 11/27/18 at 1506, Anesthesia Intra-op New Bag 11/27/2018 2:34 PM CDT 50 mcg/kg/min 24.12 mL/hr propofol (DIPRIVAN) injection INTRA-PROCEDURE PRN, Starting on 11/27/18 at 1409, Until 11/27/18 at 1506, Anesthesia Intra-op Given 11/27/2018 2:24 PM CDT 30 mg Given 11/27/2018 2:09 PM CDT 200 mg rocuronium (ZEMURON) injection INTRA-PROCEDURE PRN, Starting on 11/27/18 at 1417, Until 11/27/18 at 1506, Routine, Anesthesia Intra-op Given 11/27/2018 2:17 PM CDT 20 mg succinylcholine Chloride (ANECTINE) 140 mg/7 mL (20 mg/mL) injection INTRA-PROCEDURE PRN, Starting on 11/27/18 at 1409, Until 11/27/18 at 1506, Routine, Anesthesia Intra-op Given 11/27/2018 2:09 PM CDT 100 mg documented in this encounter Care Teams Hvac Design Engineer Relationship Specialty Start Date End Date Sg Richards MD [address] [place] [id number] PCP - General Internal Medicine 06/10/17 08/13/21 documented as of this encounter
--- OUTSIDE RECORDS SUMMARY | 2024-07-16 13:00 | XMS_ITS | Clinical Summary ---
Author Organization [facility] Administrative Offices Address [address] [place] [address] Care Team Providers Care Livestock Showman Name Role Phone Davi Georges MD Primary Care Provider [phone] Allergies Active Allergy Reactions Criticality Noted Date Comments Adhesive Tape-Silicones Hives High 07/25/2014 Erythromycin Seizure,Hallucinatio n,Other (See Comments) High 07/16/2012 Neuro problems Seizure as a baby Reaction: Neuro problems, ??, Silicone Hives High 07/25/2014 Unclassified Drug Swelling Medium 08/13/2012 ALLERGY TO URINARY CATHETERS Medications Medication Sig Dispensed Refills Start Date End Date Status gabapentin (NEURONTIN) 600 mg Oral tablet Take 1,200 mg by mouth 3 times daily. Active buPROPion SR 12 hour (WELLBUTRIN-SR) 150 mg Oral tablet Take 150 mg by mouth 2 times daily. Active traZODone (DESYREL) 100 mg Oral tablet Take 100 mg by mouth daily at bedtime. Active levETIRAcetam (KEPPRA) 1,000 mg tablet Take 2,000 mg by mouth 2 times daily . Active primidone (MYSOLINE) 50 mg tabletIndications: 1 1/2 at bedtime Take 250 mg by mouth 2 times daily. Active calcium carbonate (TUMS ORAL) Take by mouth 1 time daily as needed. Active lamoTRIgine (LaMICtal) 100 mg tablet Take 350 mg by mouth 2 times daily . 06/23/2016 Active ibuprofen (MOTRIN) 800 mg tablet Take 1 Tablet (800 mg) by mouth every 8 hours. 30 Tablet 11/04/2018 Active erenumab-aooe (AIMOVIG) 70 mg/mL Auto-Injector Inject 70 mg by subcutaneous injection one time only. 1st-5th (one of these days) of each month TAKEN X1 PER MONTH Active rizatriptan (MAXALT) 5 mg Tablet Take 5 mg by mouth every 2 hours as needed for Migraine. may repeat in 2 hours; max dose 30mg in 24 hours Active Active Problems Problem Noted Date Diagnosed Date Acute cholecystitis 11/27/2018 Seizure disorder Major depressive disorder TMJ disease Immunizations Name Administration Dates Next Due (ADACEL/BOOSTRIX)(10 YR UP) TDAP VACCINE, 0.5ML, IM 06/22/2018(),06/22/2018(),06/18/2018() INFLUENZA VACCINE QUADRIVALE NT 6 MOS UP PF IM 06/22/2018(),06/22/2018(),06/18/2018() Social History Tobacco Use Types Packs/Day Years [...] Mass Index 37.47 10/03/2021 12:31 PM CDT Plan of Treatment Health Maintenance Due Date Last Done Comments HEPATITIS B VACCINES (1 of 3 - 19+ 3-dose series) 1994 CERVICAL CANCER SCREENING 2005 BREAST CANCER SCREENING 2015 COLORECTAL SCREENING 2020 Colorectal Cancer Screening 2020 FIT-DNA Q 3 years 2020 FIT/FOBT Q 1 year 2020 Flex Sig/CT Colonography Q 5 years 2020 INFLUENZA VACCINE (#1) 2024 DTAP/TDAP/TD VACCINES (2 - T d or Tdap) 07/09/2025 07/09/2015 PNEUMOCOCCAL VACCINE 0-64 YEARS Aged Out 8 No longer eligible based on patient's age to complete this topic Medical Devices Implanted Type Area Restaurant Assistant Manager Device Identifier Shelf Expiration Date Model / Serial / Lot Dbm Osteowrap Xl [id number] - [id number] Implanted:Qt y: 1 on 11/03/2012 by Dylon Fung MD at [facility] Biological BACTERIN 04/30/2013 [id number] / [id number] / Alloderm Thick 2x4cm [id number] - [id number] Implanted:Qt y: 1 on 11/03/2012 by Dylon Fung MD at [facility] Biological LIFECELL ANTONINA 01/03/2013 [id number] / / [id number] Cement Martin G-Hv 40g [id number] - [id number] Implanted:Qt y: 1 on 06/17/2018 by Dylon Fung MD at [facility] Cement Left: Face [employer] infection prevention coordinator [employer]O SURGICAL 12/03/2019 600-15-100 / / [id number] Screw Tmj 2.0x10mm [id number] Implanted:Qt y: 2 on 11/03/2018 by Dylon Fung MD at [facility] Screw Left: Mandible TMJ CONCEPTS / LOAD 16 STERILIZED 10/22/2018 Screw Tmj 2.0x12mm [id number] Implanted:Qt y: 5 on 11/03/2018 by Dylon Fung MD at [facility] Screw Left: Mandible TMJ CONCEPTS / LOAD 16 STERILIZED 10/22/2018 Screw Tmj 2.0x6mm [id number] Implanted:Qt y: 4 on 11/03/2018 by Dylon Fung MD at [facility] Screw Left: Mandible TMJ CONCEPTS / LOAD 16 STERILIZED 10/22/2018 Putty Dbx Dbm 1ml 90004 - [id number] Implanted:Qt y: 1 on 06/17/2018 by Dylon Fung MD at [facility] Tissue Left: Face MUSCULOSKELETAL TRANSPLANT FOU [id number] 10/20/2019 [id number] / [id number] / Putty Dbx Dbm 1ml 36764 - [id number] Implanted:Qt y: 1 on 08/11/2018 by Dylon Fung MD at [facility] Tissue N/A: Mandible MUSCULOSKELETAL TRANSPLANT FOU [id number] 03/19/2020 [id number] / [id number] / Patient Fitted Tmj Implant, Mandibular Component Implanted:Qt y: 1 on 11/03/2018 by Dylon Fung MD at [facility] Left: Mandible TMJ CONCEPTS 06/19/2020 [id number] / / [id number] Patient Fitted Tmj Implant, Glenoid Fossa Component Implanted:Qt y: 1 on 11/03/2018 by Dylon Fung MD at [facility] Left: Mandible TMJ CONCEPTS 06/19/2020 [id number] / / [id number] Tmj Unilat Bndl Comp Cde701 - [id number] Implanted:Qt y: 1 on 11/03/2018 by Dylon Fung MD at [facility] N/A: Mandible TMJ CONCEPTS [id number] / / Description:All TMJ Concepts bundled facial components are processed on purchase order [id number] Straumann Standard Plus Implant Implanted:Qt y: 1 on 11/28/2021 by Dylon Fung MD at [facility] N/A: Maxilla [id number] 08/29/2026 043.657S / 043.657S / [id number] Description:No charge to pat ient, was brought from surgeon's office. Straumann Standard Plus Implant Implanted:Qt y: 1 on 11/28/2021 by Dylon Fung MD at [facility] N/A: Maxilla [id number] 09/24/2026 033.613S / 033.613S / [id number] Description:No charge to pat ient, was brought in from surgeon's office. Explanted Type Area Restaurant Assistant Manager Device Identifier Shelf Expiration Date Model / Serial / Lot Cement Martin G-Hv 40g [id number] - [id number] Implanted:Qty : 1 on 08/11/2018 by Dylon Fung MD at [facility] Explanted:Qty : 1 on 11/03/2018 at [facility] Cement N/A: Mandible [employer] infection prevention coordinator [employer] SURGICAL 12/03/2019 600-15-100 / / [id number] Fossa Abtmnt Tmj Lt Med - [id number] Explanted:Qty : 1 on 06/17/2018 at [facility] Face BIOMET [id number] - JEFRY MELECIO / / Plate Tmj Mndbl 7h Lt 45mm - [id number] Explanted:Qty : 1 on 06/17/2018 at [facility] Plate BIOMET [facility] - JEFRY MELECIO / / Screw Mmf Maxdrv 2.0x12mm [id number] - [id number] Implanted:Qty : 5 on 06/17/2018 by Dylon Fung MD at [facility] Explanted:Qty : 5 on 08/11/2018 by Dylon Fung MD at [facility] Screw N/A: Mouth KLS MARI LP 25-092-38-0 5 / / Kls Mmf Mandible Screws Implanted:Qty : 5 on 06/17/2018 by Dylon Fung MD at [facility] Explanted:Qty : 5 on 08/11/2018 by Dylon Fung MD at [facility] Screw N/A: Mouth KLS MARI LP 25-092-38-0 5- / STERILIZED JUN 04 / LOAD 23 Screw Tmj 2.0x12mm - [id number] Implanted:Dylon Casillas MD (Quantity not on file) Explanted:Qty : 1 on 11/03/2018 by Dylon Fung MD at [facility] Screw N/A: Mandible TMJ CONCEPTS / / LOAD 16 STERILIZED 10/22/2018 Mandibular Prosthesis Plate Explanted:Qty : 1 on 08/11/2018 by Dylon Fung MD at [facility] Left: Mandible Advance Directives For more information, please contact: [phone] * Full Code (Latest Code Status on File) Date Activated Date Inactivated Comments 11/28/2021 12:25 PM 11/28/2021 9:40 PM * Full Code Date Activated Date Inactivated Comments 01/12/2019 11:35 AM 01/12/2019 5:44 PM * Full Code Date Activated Date Inactivated Comments 01/12/2019 11:08 AM 01/12/2019 11:35 AM * Full Code Date Activated Date Inactivated Comments 11/26/2018 11:04 PM 11/28/2018 2:46 PM * Full Code Date Activated Date Inactivated Comments 11/03/2018 3:56 PM 11/04/2018 3:31 PM Care Teams Livestock Showman Relationship Specialty Start Date End Date Davi Georges MD [address] [place] [address] PCP - General Family Practice 08/14/21
--- OUTSIDE RECORDS SUMMARY | 2024-07-16 13:00 | XMS_ITS | Encounter Summary ---
Author Organization [facility] Address [address] [place] [address] Care Team Providers Care Golf Club Weighter Name Role Phone Davi Georges MD Primary Care Provider [phone] Encounter Details Date Type Department Care Team (Latest Contact Info) Description 08/17/2021 10:20 AM [facility]ERS[facility] HELPER - 08/17/2021 11:59 PM [facility] Hospital Encounter [facility] Pre Procedure Viral Testing [address] [place] [address] Dylon Fung MD [facility] [address] [address] Discharge Disposition: Home or Self Care Social [...] or suspected to have Coronavirus / COVID-19? Unable to assess 08/17/2021 10:19 AM HAMMERSMITH HELPER documented as of this encounter Medications at [...] OCCASION 11/28/2021 documented as of this encounter Plan of Treatment Not on file documented as of this encounter Visit Diagnoses Not on filedocumented in this encounter Additional Health Concerns Infection Onset Date Last Indicated Resolved Time COVID-19 08/17/2021 08/17/2021 09/16/2021 1:16 AM HAMMERSM[facility] HELPER documented as of this encounter Care Teams Golf Club Weighter Relationship Specialty Start Date End Date Davi Georges MD [facility] [place] [phone] PCP - General Family Practice 08/14/21 documented as of this encounter
--- OUTSIDE RECORDS SUMMARY | 2024-07-16 13:00 | XMS_ITS | Encounter Summary ---
Author Organization [facility] Address [address] [place] [address] Care Team Providers Care Powertrain Engineer Name Role Phone Sg Richards MD Primary Care Provider Reason for Referral * CT Scan (Routine) - Closed Specialty Diagnoses / Procedures Referred By Suman perdue Referred To Contact Radiology Diagnoses Temporomandibular joint sounds on opening and/or closing the jaw Procedures CT SINUS FACIAL BONES W WO Dylon Colbert MD [address] [place] [id number] Scan [address] [place] [address] Referral ID Status Reason Start Date Expiration Date Visits Re quested Visits Authorized [id number] Closed 05/10/2021 06/10/[address]BE BUILDER Reason for Visit * CT Scan (Routine) - Closed Specialty Diagnoses / Procedures Referred By Suman perdue Referred To Contact Radiology Diagnoses Temporomandibular joint sounds on opening and/or closing the jaw Procedures CT SINUS FACIAL BONES W WO Dylon Colbert MD [address] Scan [address] [place] [address] Referral ID Status Reason Start Date Expiration Date Visits Re quested Visits Authorized [id number] Closed 05/10/2021 06/10/2022 1 1 Encounter Details Date Type Department Care Team (Latest Contact Info) Description 06/04/2021 8:46 AM AIRPLANE TUBE BUILDER - 06/04/2021 11:59 PM AIRPLANE TUBE BUILDER Hospital Encounter Luisa CT Scan S [facility] [address] [place] [id number] Dylon Fung MD [address] [facility] [address] [address] Discharge Disposition: Home or Self Care Social [...] COVID-19? No / Unsure 06/04/2021 8:40 AM AIRPLANE TUBE BUILDER documented as of this encounter Medications at [...] OCCASION 11/28/2021 documented as of this encounter Miscellaneous Notes * Treatment Plan - Mei Farr, RN - 06/04/2021 9:20 AM CST Images from the original note were not included. ? [facility] CT MRI Medication and Flush Protocol [facility] Approved by: [facility] - Medical Executive Committee Approval Date: 09/06/2020 ORDERS ARE ENTERED ???PER PROTOCOL?? Enter the protocol in the patient's electronic health record using smartphrase: .imagingctmriprotocol Communication Orders: o For ordered imaging procedures requiring intravenous access: ??? Initiate a peripheral IV, if not already in place, and discontinue IV prior to discharge (if outpatient). ??? Enter order if needed: Insert Peripheral IV o Bariatric Oral Contrast: Post-surgical bariatric patients will have markedly reduced ability to drink normal quantities of liquid. ??? Four ounces will be the maximum amount or less if the patient cannot comfortably tolerate. ??? Cancel oral contrast if patient is nauseated or vomiting. ??? Water based contrast only Medication Orders: o Local Anesthetic for use to initiate IV ADULT ??? Lidocaine 4% (L.M.X.4) applied topically ONE TIME prior to IV catheter insertion PRN (L.M.X.4 %should be applied 15 minutes prior to procedure) PEDIATRIC ??? Lidocaine 4% (L.M.X.4) applied topically ONE TIME prior to IV catheter insertion PRN (apply 30 minutes prior to procedure) ??? Sucrose 24% (Squirts) given PO prior to IV catheter insertion (administer 1 - 2 minutes prior to procedure) OR ??? Sucrose 24% (Tootsweet; Sweet-Ease) oral solution 0.2 mL oral (apply to tongue on pacifier or clean, gloved finger), ONE TIME 2 minutes prior to painful procedure. May repeat dose x1 PRN to complete procedure. o Sodium chloride 0.9% (normal saline) flush 10 mL PRN for saline lock or medication administration. o For respiratory distress, initiate oxygen and/or increase O2 to maintain saturation greater than 90% o For all invasive procedures: obtain Lidocaine 1% for intra-procedure administration. If Lidocaine1% unavailable, may substitute Lidocaine 2%. PROCEDURE SPECIFIC CT MEDICATIONS Any exceptions to these contrast protocols must be approved by a Radiologist and documented in the EHR Progress Notes. Cystogram (CT Pelvis): Iopamidol (Isovue 300) 61%, 50mL, diluted with 250mL of sterile NS. Inject Isovue into 250mL bag ofNS. Clamp avila catheter prior to instilling solution via catheter. o Instill up to 300mL of Isovue and NS solution into bladder via catheter, one time. CT ORAL CONTRAST PROTOCOLS FOR ADULTS ??? Use Iohexol (Omnipaque) 240 mg/mL for CT scan unless patient has a documented allergy to contrast dye. ??? If allergy present, use Barium Sulfate (EZ Paque) for procedure. o Iohexol (Omnipaque) 240 mg/mL: 50ml added to 960mL of clear liquid of patient's choice. Preferredroute is oral. May use nasoenteric tube if needed. ??? Administer 900mL of the diluted Omnipaque 240, orally, one time only. o Barium Sulfate (EZ Paque /Vanilla Silq) 96% oral suspension: Preferred route is oral. May use nasoenteric tube if needed. ??? Administer 900mL of barium sulfate, orally, one time only. CT ORAL CONTRAST PROTOCOLS FOR PEDIATRICS Pediatrics = up to age 18 o Pediatric Radiologist will approve of one of the following products selected for procedure. ??? Barium Sulfate (EZ Paque) 96% oral suspension: preferred route is oral. May use nasoenteric tube if needed. to 3 months Administer up to 90mL of Barium sulfate, orally, one time only 4 months to 1 year old Administer up to 240mL of Barium sulfate, Orally, One Time Only 1 year old to 5 years old Administer up to 360mL of Barium sulfate, Orally, One Time Only 5 years old to 10 years old Administer up to 480mL of Barium sulfate, Orally, One Time Only Over 10 years old Administer up to 600mL of Barium sulfate, Orally, One Time Only Iohexol (Omnipaque) 240 mg/mL oral solution ; Dilute 25mL of Iohexol with 480mL of clear liquid of patient's choice. Administer the diluted solution per age as follows: Preferred route is orally. May use nasoenteric tube if needed. ; Send any remaining diluted Iohexol solution with the patient's nurse to CT ; ; ; Administer 45mL of diluted Iohexol oral solution, orally every 30 minutes x 2 doses. ; 1 month to 1 year old ; Administer 120mL of diluted Iohexol oral solution, orally every 30 min x 2 doses. ; 1 year old to 5 years old ; Administer 180mL of Iohexol orally every 30 min x 2 doses. ; 5 years old to 10 years old ; Administer 240mL of Iohexol orally every 30 min x 2 doses. ; Over 10 years old ; Administer 300mL of Iohexol orally every 30 min x 2 doses. ; ; CT RECTAL CONTRAST PROTOCOLS ADULTS: o Iohexol (Omnipaque) 240 mg/mL: Dilute 50mL of Omnipaque with 900mL of warm water in an enema bag.Administer the diluted solution rectally via gravity per patient's tolerance, up to 950mLs, one time only. ; CT IV CONTRAST PROTOCOLS for ADULT ; ADULTS: (If patient is less than 55kg and confirm dose with radiologist) o Iopadmidol (Isovue-300): Administer 2.2mL/kg of Iopamidol 61%, intravenously, one time only. o See table below for maximum dose, unless otherwise authorized by radiologist. If exam has been completed before the entire dose has been administered, stop the injection. o Multiple doses of iodine contrast within a 24-hour period are a risk factor for ASIM and should beavoided if possible. Emergent or other unusual circumstances where multiple doses of contrast are required in a short interval time should prompt consideration by the referring professional and radiologist to discuss the risks and benefits of contrast media administration. o If exam not included in table below, contact radiologist for orders. Procedure Maximum Dose CT Head with Contrast Up to [address] Chest with Contrast Up to [address] Maxillofacial with Contrast Up to [address] Soft Tissue Neck with Contrast CT Chest Abdomen Pelvis with Contrast CT Chest Abdomen with Contrast CT Abdomen Pelvis with Contrast CT Pelvis with Contrast CT Angiogram Examinations (all) CT Soft Tissue Neck and Chest Abdomen Pelvis with Contrast Up to [address] Soft Tissue Neck and Chest with Contrast CT Urogram with Contrast CT IV CONTRAST PROTOCOLS for PEDIATRICS PEDIATRICS: Use weight-based dosing if patient is less than 55kg and confirm dose with radiologist. to 15 years old Administer 2.2mL/kg (to MAX of 80 mL) of Iopamidol (Isovue-300) 61%, intravenously, one time only 15 years old and older Administer 2.2mL/kg (to MAX of 150mL) of Iopamidol (Isovue-300) 61%, intravenously, one time only PROCEDURE SPECIFIC MRI MEDICATIONS: MRI ENTEROGRAPHY: GLUGACON ADMINISTRATION ADULTS: (patient 18 years or older) o Patient will receive 2 doses of Glucagon one dose 0.5mg IM administered by RN prior to the MRI exam beginning 2nd dose 0.5mg IV prior to the IV contrast being administered. (If the patient is diabetic call the radiologist to verify administration of Glucagon) PEDIATRICS: If the patient is diabetic call the radiologist to verify administration of Glucagon o Pediatric patient weighing 24.9 kg or less should have one dose of Glucagon 0.5mg IM administeredby RN prior to MRI exam beginning. o Pediatric patient weighing 25 kg or greater should have one dose of Glucagon 1 mg IM administeredby RN prior to the MRI exam beginning. MRI UROGRAM: LASIX ADMINISTRATION ADULTS: Call radiologist with any questions regarding administration of Lasix o Lasix 0.1mg per kg with a minimum dose of Lasix 5mg IV being given up to a max dose of Lasix 10mgIV being given. The Lasix should be administered by RN prior to the IV contrast being administered. ??? (Hold Lasix if: obstruction, anuria and hypersensitivity to furosemide, and electrolyte imbalance or hypotension should be corrected by RN before administering) MRI IV CONTRAST PROTOCOLS ADULTS: Multihance and Prohance can be used for most MRI scans Prohance should be used primarily. Multihance is useful in specific circumstances as directed by the radiologist or per the appropriate sections established protocols. Group I gadolinium contrast agents shall not be administered. Generally, multiple doses of gadolinium contrast should not be administered within a 24-hour period. In emergent or other unusual circumstances where this is necessary, only Group II agents should beadministered. For Liver Studies: Contact radiologist to determine use of one of the following: ??? Gadobenate Dimeglumine (Multihance) (0.1mmol/0.2mL), Administer 0.1mmol/kg = 0.2mL/kg up to MAXof 20 mL, intravenously, one time only ??? Gadoteridol (Prohance) (0.1mmol/0.2mL), Administer 0.1mmol/kg = 0.2mL/kg up to MAX of 20mL, intravenously, one time only ??? Gadoxetate (Eovist) (2.5 mmol/10mL), Administer 0.025mmol/kg = 0.1mL/kg up to MAX of 10mL, intravenously, one time only PEDIATRICS: Radiologist to determine need for contrast Term neonates up to 2 years: Gadobuterol (Gadavist) (1mmol/mL injection), Administer 0.1mmol/kg = 0.1mL/kg up to MAX of 14mmol=14mL, intravenously, one time only OR Gadobenate Dimeglumine (Multihance) (0.1mmol/mL), Administer 0.1mmol/kg = 0.1mL/kg up to MAX of 14mmol = 14mL, intravenously, one time only 2 years and older Gadobenate Dimeglumine (Multihance) (0.1mmol/0.2mL), Administer 0.1mmol/kg = 0.2mL/kg up to MAX of 20mL, intravenously, one time only OR Gadoteridol (Prohance) (0.1mmol/0.2mL), Administer 0.1mmol/kg = 0.2mL/kg up to MAX of 20mL, intravenously, one time only TABLE 1. ACR Manual Classification of Gadolinium-Based Agents Relative to Nephrogenic Systemic Fibrosis Group I: Agents associated with the greatest number of NSF cases: o Gadodiamide (Omniscan?? - Sovex) o Gadopentetate dimeglumine (Magnevist?? - [employer]) o Gadoversetamide (OptiMARK?? - Guerbet) Group II: Agents associated with few, if any, unconfounded cases of NSF: o Gadobenate dimeglumine (MultiHance?? - Liquid Scenarios) o Gadobutrol (Gadavist?? - [employer]; Gadovist in many countries) o Gadoteric acid (Dotarem?? - Guerbet, Clariscan - Sovex) Gadoteridol (ProHance?? - Liquid Scenarios) Group III: Agents for which data remains limited regarding NSF risk, but for which few, if any unconfounded cases of NSF have been reported: Gadoxetate disodium (Eovist - [employer]; Primovist in many countries) LANE TUBE BUILDER documented in this encounter Plan of Treatment Not on file documented as of this encounter Procedures Procedure Name Priority Date/Time Associated Diagnosis Comments CT SINUS FACIAL BONES W WO CONT Routine 06/04/2021 9:37 AM AIRPLANE TUBE BUILDER Temporomandibular joint sounds on opening and/or closing the jaw POC CREATININE Routine 06/04/2021 9:16 AM AIRPLANE TUBE BUILDER documented in this encounter Results * CT SINUS FACIAL BONES W WO CONT (06/04/2021 9:37 AM AIRPLANE TUBE BUILDER) Anatomical Region Laterality Modality Head Computed Tomogra phy 06/04/2021 10:0 4 AM AIRPLANE TUBE BUILDER Impressions 06/04/2021 10:23 AM AIRPLANE TUBE BUILDER IMPRESSION: ?? 1. ??Degenerative changes noted in the right TMJ with joint space narrowing and osteophyte formation. There is flattening of the mandibular condyle. 2. 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 Condylar head prosthesis appears somewhat laterally positioned with respect to the center of the condylar fossa prosthesis. 3. 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 This likely reflects sclerosis from prior infection. Clinical and laboratory correlation for patient's current signs and symptoms of infection recommended. ?? The examination was performed with the adjustment of mA according to the patient size and/or the use of Iterative Reconstruction Technique. ?? DICTATION LOCATION: Location [address] [facility] 06/04/2021 10:23 [address]DER CT MAXILLOFACIAL WITHOUT AND WITH IV CONTRAST DATE: 06/04/2021 9:37 AM ?? CLINICAL INDICATION: ?? Abnormal joint sounds when opening and closing jaw. ?? TECHNIQUE: ?? Multiple contiguous axial CT images were obtained through the maxillofacial ??region without and with the use of IV contrast material. Sagittal and coronal reformations were rendered utilizing the axial image data set. ?? IV CONTRAST: 90 mL Isovue 300. GFR: Greater than 60 mL/m per 1.73 sq m COMPARISON: August 12, 2018. FINDINGS: Degenerative change in the right TMJ with osteophyte formation. Prior left mandibulectomy noted with mandibular prosthesis and left TMJ arthroplasty. The condylar head prosthesis appears somewhat laterally positioned with respect to the center of the condylar fossa. Persistent underlying chronic sclerosis involving the left temporal bone. Irregular soft tissue thickening noted adjacent to the left TMJ likely reflecting postsurgical scarring. There is atrophy of the muscles of the farm management supervisor space on the left. There also appears to be mild fatty atrophy of the left parotid. Scattered subcentimeter cervical lymph nodes are noted bilaterally. These are more pronounced on the left. The visualized intracranial structures are unremarkable. ??The globes, extraocular musculature, and retro-orbital fat is unremarkable. The visualized mastoid air cells are clear. ??Paranasal sinuses are clear. Retained cerumen or other debris is present in the external auditory canal. ?? INCIDENTAL FINDINGS: ??None. Procedure Note Mohit Amezquita MD - 06/04/2021 CT MAXILLOFACIAL WITHOUT AND WITH IV CONTRAST DATE: 06/04/2021 9:37 AM CLINICAL INDICATION: Abnormal joint sounds when opening and closing jaw. TECHNIQUE: Multiple contiguous axial CT images were obtained through the maxillofacial region without and with the use of IV contrast material. Sagittal and coronal reformations were rendered utilizing the axial image data set. IV CONTRAST: 90 mL Isovue 300. GFR: Greater than 60 mL/m per 1.73 sq m COMPARISON: August 12, 2018. FINDINGS: Degenerative change in the right TMJ with osteophyte formation. Prior left mandibulectomy noted with mandibular prosthesis and left TMJ arthroplasty. The condylar head prosthesis appears somewhat laterally positioned with respect to the center of the condylar fossa. Persistent underlying chronic sclerosis involving the left temporal bone. Irregular soft tissue thickening noted adjacent to the left TMJ likely reflecting postsurgical scarring. There is atrophy of the muscles of the farm management supervisor space on the left. There also appears to be mild fatty atrophy of the left parotid. Scattered subcentimeter cervical lymph nodes are noted bilaterally. These are more pronounced on the left. The visualized intracranial structures are unremarkable. The globes, extraocular musculature, and retro-orbital fat is unremarkable. The visualized mastoid air cells are clear. Paranasal sinuses are clear. Retained cerumen or other debris is present in the external auditory canal. INCIDENTAL FINDINGS: None. IMPRESSION: 1. Degenerative changes noted in the right TMJ with joint space narrowing and osteophyte formation. There is flattening of the mandibular condyle. 2. 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 Condylar head prosthesis appears somewhat laterally positioned with respect to the center of the condylar fossa prosthesis. 3. 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 This likely reflects sclerosis from prior infection. Clinical and laboratory correlation for patient's current signs and symptoms of infection recommended. The examination was performed with the adjustment of mA according to the patient size and/or the use of Iterative Reconstruction Technique. DICTATION LOCATION: Location - [facility] Dylon Fung MD CT ORDERABLES * POC CREATININE (06/04/2021 9:16 AM AIRPLANE TUBE BUILDER) CREATININE POC 0.70 0.50 - 1.00 mg/dL 06/04/2021 9:16 AM AIRPLANE TUBE BUILDER [facility] GFR >60 mL/min/1. 73 sq meter 06/04/2021 9:16 AM AIRPLANE TUBE BUILDER [facility] [employer] [facility] Comment: eGFR has not been validated [...] refer to the GFR result. GFR, >60 mL/min/1. 73 sq meter 06/04/2021 9:16 AM AIRPLANE TUBE BUILDER [facility] MANAGER NIGHT NAME POC MEI FARR 06/04/2021 9:16 AM AIRPLANE TUBE BUILDER [facility] CRITICALTO POC 06/04/2021 9:16 AM AIRPLANE TUBE BUILDER [facility] Blood, whole 06/04/2021 9:16 AM AIRPLANE TUBE BUILDER 06/04/2021 9:21 AM AIRPLANE TUBE BUILDER Dylon Fung MD POINT OF CARE TESTIN G Performing Organization Address City/State/[facility] [[email or web address]] Co de Phone Number [facility] [id number] [address] [facility] [place] [address] documented in this encounter Visit Diagnoses Diagnosis Temporomandibular joint sounds on opening and/or closing the jaw documented in this encounter Administered Medications Inactive Administered Medications - up to 3 most recent administrations Medication Order MAR Action Action Date Dose Rate Site iopamidoL (ISOVUE-300) 61 % injection (drawn from multi-use bulk pack) 90 mL 90 mL, IV, INTRA-PROCEDURE ONCE, 1 dose, Starting on Thu06/04/21 at 0926, Until Thu06/04/21 at 0938, Routine Contrast Given 06/04/2021 9:38 AM AIRPLANE TUBE BUILDER 90 mL sodium chloride flush injection 0-20 mL 0-20 mL, IV, SEE ADMIN INSTRUCTIONS, Starting on Thu06/04/21 at 0926, Until Thu06/04/21 at 1325, Routine Given 06/04/2021 9:38 AM AIRPLANE TUBE BUILDER 10 mL sodium chloride flush injection 10 mL 10 mL, IV, SEE ADMIN INSTRUCTIONS, 1 dose, Starting on Thu06/04/21 at 0926, Until Thu06/04/21 at 0928, Routine Given 06/04/2021 9:28 AM AIRPLANE TUBE BUILDER 10 mL documented in this encounter Care Teams Powertrain Engineer Relationship Specialty Start Date End Date Sg Richards MD [address] [place] [address] PCP - General Internal Medicine 06/10/17 08/13/21 documented as of this encounter
--- OUTSIDE RECORDS SUMMARY | 2024-07-16 13:00 | XMS_ITS | Encounter Summary ---
Author Organization [facility] Address [address] [place]: Epic Prelude ADT [place] [address] Care Team Providers Care Vaccine Customer Representative Name Role Phone Sg Richards MD Primary Care Provider [phone] Encounter Details Date Type Department Care Team (Latest Contact Info) Description 06/03/2021 Travel Social History Tobacco Use Types Packs/Day [...] have Coronavirus / COVID-19? No / Unsure 06/03/2021 11:37 AM TEST CAR DRIVER documented as of this encounter Plan of Treatment Not on file documented as of this encounter Visit Diagnoses Not on filedocumented in this encounter Care Teams Vaccine Customer Representative Relationship Specialty Start Date End Date Sg Richards MD [address] [place] [id number] PCP - General Internal Medicine 06/10/17 08/13/21 documented as of this encounter
--- OUTSIDE RECORDS SUMMARY | 2024-07-16 13:00 | XMS_ITS | Encounter Summary ---
Author Organization [facility] Address [address] [place]: Epic Prelude ADT [place] [address] Care Team Providers Care Supervisor Cleaning And Annealing Name Role Phone Davi Georges MD Primary Care Provider Encounter Details Date Type Department Care Team (Latest Contact Info) Description 11/25/2021 Travel Social History Tobacco Use Types Packs/Day [...] on filedocumented in this encounter Care Teams Supervisor Cleaning And Annealing Relationship Specialty Start Date End Date Davi Georges MD [facility] [place] [address] PCP - General Family Practice 08/14/21 documented as of this encounter
--- OUTSIDE RECORDS SUMMARY | 2024-07-16 13:00 | XMS_ITS | Encounter Summary ---
Author Organization [facility] Address [address] [place]: Epic Prelude ADT [place] [address] Care Team Providers Care Trumpet Teacher Name Role Phone Davi Georges MD Primary Care Provider [phone] Encounter Details Date Type Department Care Team (Latest Contact Info) Description 08/17/2021 Travel Social History Tobacco Use Types Packs/Day [...] COVID-19? Unable to assess 08/17/2021 10:19 AM GLASS CUT OFF TENDER documented as of this encounter Plan of Treatment Not on file documented as of this encounter Visit Diagnoses Not on filedocumented in this encounter Additional Health Concerns Infection Onset Date Last Indicated Resolved Time COVID-19 08/17/2021 08/17/2021 09/16/2021 1:16 AM GLASS CUT OFF TENDER documented as of this encounter Care Teams Trumpet Teacher Relationship Specialty Start Date End Date Davi Georges MD [facility] [place] [id number] PCP - General Family Practice 08/14/21 documented as of this encounter
--- OUTSIDE RECORDS SUMMARY | 2024-07-16 13:00 | XMS_ITS | Encounter Summary ---
Author Organization [facility] Address [address] [place] [address] Care Team Providers Care Aboriginal Ceremonial Celebrant Name Role Phone Sg Richards MD Primary Care Provider [phone]- [phone] Reason for Visit * Auth/Cert Specialty Diagnoses / Procedures Referred By Contac t Referred To Contact Diagnoses LEFT TMJ ANKYLOSIS Dylon Fung MD [address] [facility] [address] [place] [address] Referral ID Status Reason Start Date Expiration Date Visits Re quested Visits Authorized [id number] 12/17/2018 1 1 Encounter Details Date Type Department Care Team (Late st Contact Info) Description 01/12/2019 12:53 PM CDT Anesthesia Event [facility] Operating Room [address] [place] [address] Annie Barrow MD [address] [place] [address] Anesthesia Record Procedure Summary Procedure Name Responsible Anesthesiologist Anesthesia Start Time Anesthesia Stop Time ORALMAXILLOFACIAL DEVICE REMOVAL (Mouth) Annie Barrow MD 01/12/19 1253 01/12/19 1338 Events Date Time Event Comment 01/12/2019 1140 1143 AN Equip Check Anesthesia eq uipment and materials checked in accordance with local policy. 1253 An Start 1254 In Room This event disp lays the In Room time documented in the Surgical Log. Deleting this event will not remove it from the log but will remove it from the Grid and Graph timeline. 1255 An Start Data 1255 Pre-Induction Immediate pre- induction anesthetic assessment performed. Vital signs as noted on graphic. 1259 An Induction 1306 An Intubation 1308 Anesthesia Ready 1314 Throat Pack Placed 1317 Procedure Start This event d isplays the Procedure Start time documented in the Surgical Log. Deleting this event will not remove it from the log but will remove it from the Grid and Graph timeline. 1325 Throat Pack Removed 1325 Procedure Stop This event di splays the Procedure Stop time documented in the Surgical Log. Deleting this event will not remove it from the log but will remove it from the Grid and Graph timeline. 1329 An Extubation Emergence unev entful Awake, spontaneous respirations. Adequate muscle strength demonstrated Adequate tidal volume. Orapharynx suctioned. Extubated with positive pressure ventilation. 1332 an stop data 1333 Out of Room This event disp lays the Out of Room time documented in the Surgical Log. Deleting this event will not remove it from the log but will remove it from the Grid and Graph timeline. 1338 An Stop Meds Name Total ceFAZolin in sterile water (ANCEF) 2 gra m/20 mL IV Syringe (PREMIX) 2,000 mg 2,000 mg midazolam PF (VERSED) 1 mg/mL injection 2 mg fentaNYL (SUBLIMAZE) PF 50??mcg/mL injec tion 100 mcg lidocaine PF (XYLOCAINE MPF) 20 mg/mL sy ringe 50 mg propofol (DIPRIVAN) 10??mg/mL injection 200 mg succinycholine (ANECTINE) 140 mg/7 mL iv syringe 100 mg dexamethasone (DECADRON) 4 mg/mL injecti on 8 mg ondansetron (ZOFRAN) 4??mg/2 mL injectio n 4 mg lactated ringers infusion 1,200 mL * Agents Name Sevoflurane % Sevoflurane [...] 193311/03/12 1238 by Heather Bashir RN 11/28/21 1934 by Nettie Maguire Wound 11/03/12; 1402; No; 2; Left:; face; surgical wound; 11/28/21; 193311/03/12 1402 by Heather Bashir RN 11/28/21 1934 by Nettie Maguire Peripheral IV Pre-Hospital Start: No; Orientation: Anterior, Right; Location: Hand; Device: Angiocath; Gauge: 20 gauge; Needle Length: 1 in length; Insertion Attempts: 2; Patient Tolerance: tolerated well, appears to be in pain; Pain Prevention: intradermal injection 01/12/19 1148 by Brenda Lemus RN 01/12/19 1543 by Kristi Almaraz RN Endotracheal Airway Type: ETT, Oral (eas y MV); Cuff Pressure: minimal leak technique, minimal occluding volume, cuff inflated; Size: 6; Site: mouth; Attempts: 2 (1st look with mil 2- able to visualize epiglottis but not able to lift; 2nd look with glidescope 3- successful); cm: 20; Device: Straight Blade, Video Laryngoscope; Blade: 3 (glidescope cover size 3); Secured: secured with tape; Verification: Auscultated bilateral breath sounds, Equal chest movement, Continuous waveform capnography 01/12/19 1306 by Erma Yarbrough, OPTO MECHANICAL TECHNICIAN 01/12/19 1329 by Erma Yarbrough, OPTO MECHANICAL TECHNICIAN Incision 01/12/19; 1331; surgical incision; gum; 01/13/19; 0344 01/12/19 1331 by Vanessa Gomez RN 01/13/19 0344 by PROVIDER, DISCHARGE PATIENT documented in this [...] OR Notes * Anesthesia Postprocedure Evaluation - Kathleen Panda MD - 01/12/2019 1:44 PM CDT Post Anesthesia Evaluation Vitals: Vitals Value Taken Time BP 108/51 01/12/2019 1:35 PM Temp 36.4 ??C 01/12/2019 1:35 PM Resp 16 01/12/2019 1:35 PM SpO2 100 % 01/12/2019 1:35 PM Pulse Heart Rate 84 bpm 01/12/2019 1:35 PM Pain Rating: Pain Rating: Rest: 5 (01/12/19 1130) Anesthesia Post Evaluation Patient location during evaluation: PACU Patient participation: patient was able to participate in the post op evaluation Level of consciousness: 1 = not alert but arousable by minor stimulation to obey, answer or respond Pain management: adequate Airway patency: patent Nausea or Vomiting: none Anesthetic complications: no Cardiovascular status: regular rate and rhythm Respiratory status: no respiratory symptoms Hydration status: well hydrated Kathleen Panda MD * Anesthesia Handoff - Erma Yarbrough CRNA - 01/12/2019 1:38 PM CDT Post-Anesthetic transfer of care report [...] and acknowledgement of understanding. Vital Signs: BP: 108/51 (01/12/2019 1:35 PM) Pulse: 74 (01/12/2019 10:52 AM) Heart Rate: 84 bpm (01/12/2019 1:35 PM) Temp: 36.4 ??C (01/12/2019 1:35 PM) Resp: 16 (01/12/2019 1:35 PM) SpO2: 100 % (01/12/2019 1:35 PM) 1:38 PM Erma Yarbrough CRNA * Anesthesia Preprocedure Evaluation - Annie Barrow MD - 01/12/2019 11:35 AM CDT Relevant Problems No relevant active problems Anesthesia Evaluation Anesthesia Plan ASA Final: 3 General Intravenous induction Oral ETT airway maintenance NPO status > 8 hours Anesthetic plan and risks discussed with Patient and Spouse. Plan discussed with Nurse Staffing Executive and Surgeon. Post-op Pain Control Plan to use IV or IM medication for post-op pain control. Plan for postoperative opioid use Smoking Compliance Patient did not smoke on day of surgery Pre-Anesthesia Evaluation - Long Form 01/12/2019 11:36 AM Name: Kayla Avila Age: 43 y.o. Sex: female CSN: [id number] Allergies Allergen Reactions ??? Adhesive Tape-Silicones Hives ??? Erythromycin Seizure ??? Other Drug [Unclassified Drug] Swelling ALLERGY TO CATHETERS Medications Prior to Admission Medication Sig Dispense Refill Last Dose ??? HYDROcodone-acetaminophen (NORCO) 5-325 mg tablet Take 1 Tablet by mouth 2 times daily TAKES 1 EXTRA ONE DAILY ON OCCASION . 01/12/2019 at 0700 ??? amoxicillin-clavulanate (AUGMENTIN) 250-125 mg tablet Take 1 Tablet by mouth every 12 hours. 12/29/2018 at Unknown time ??? ondansetron (ZOFRAN) 4 mg Tablet Take 1 tablet by mouth every 8 hours as needed for nausea or vomiting. 10 Tablet 0 01/11/2019 at 1999 ??? lamoTRIgine (LaMICtal) 100 mg tablet Take 350 mg by mouth 2 times daily . 01/12/2019 at 0700 ??? levETIRAcetam (KEPPRA) 1,000 mg tablet Take 2,000 mg by mouth 2 times daily . 01/12/2019 at 0700 ??? primidone (MYSOLINE) 50 mg tablet Take 50 mg by mouth daily at bedtime. 01/12/2019 at 0700 ??? pantoprazole (PROTONIX) 40 mg Tablet, Delayed Release (E.C.) Take 40 mg by mouth daily. 01/12/2019 at 0700 ??? traZODone (DESYREL) 100 mg Oral tablet Take 100 mg by mouth daily at bedtime. 01/11/2019 at 2000 ??? gabapentin (NEURONTIN) 600 mg Oral tablet Take 1,200 mg by mouth 3 times daily. 01/12/2019 at 0700 ??? buPROPion SR 12 hour (WELLBUTRIN-SR) 150 mg Oral tablet Take 150 mg by mouth 2 times daily. 01/11/2019 at 2000 ??? oxyCODONE-acetaminophen (PERCOCET) 7.5-325 mg Tablet Take 1 Tablet by mouth every 4 hours as needed for moderate pain. Max Daily Amount: 6 Tablets 30 Tablet 0 not taking ??? docusate sodium (COLACE) 100 mg capsule Take 1 Capsule (100 mg) by mouth 2 times daily. 20 Capsule 0 not taking ??? ibuprofen (MOTRIN) 800 mg tablet Take 1 Tablet (800 mg) by mouth every 8 hours. 30 Tablet 0 12/29/2018 ??? calcium carbonate (TUMS ORAL) Take by mouth 1 time daily as needed. not taking Current Facility-Administered Medications Medication Dose Route Frequency Provider Last Rate Last Dose ??? ceFAZolin in sterile water (ANCEF) 2 gram/20 mL IV Syringe (PREMIX) 2,000 mg 2,000 mg IV Pre-Proc Once Dylon Fung MD ??? lactated ringers infusion IV Pre-Proc Continuous Dylon Fung MD ??? lidocaine 2 % (XYLOCAINE) injection 0.3 mL 0.3 mL Infiltration See Admin Notes Dylon Fung MD ??? lidocaine-EPINEPHrine (XYLOCAINE-EPI) 1 %-1:100,000 injection 50 mL 50 mL Infiltration ONCE Dylon Fung MD ??? diphenhydrAMINE (BENADRYL) injection 12.5 mg 12.5 mg IV Post-Proc q 6 hours PRN Annie Barrow MD ??? lactated ringers infusion IV Post-Proc Continuous Annie Barrow MD ??? morphine 4 mg/mL injection 2 mg 2 mg IV Post-Proc q 5 min PRN Annie Barrow MD ??? fentaNYL PF (SUBLIMAZE) 50 mcg/mL injection 25 mcg 25 mcg IV Post-Proc q 3 min PRN Annie Barrow MD ??? ondansetron (ZOFRAN) 4 mg/2 mL injection 4 mg 4 mg IV Post-Proc Once PRN Annie Barrow MD ??? diphenhydrAMINE (BENADRYL) injection 12.5 mg 12.5 mg IV Post-Proc Once PRN Annie Barrow MD Patient Active Problem List Diagnosis Date Noted [...] to left jaw ??? Heart attack 2010 [place] ??? History of complications due to general anesthesia WOKE UP DURING SURGERY, FLAT LINED X2, HARD TO PUT OUT ??? Murmur ??? 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 [...] REMOVAL performed by Dylon Fung MD at [facility] OR [facility] ??? HX CRANIOFACIAL RECONSTRUCTION N/A 08/11/2018 ORALMAXILLOFACIAL DEVICE REMOVAL LT. MANDIBLE HARDWARE performed by Dylon Fung MD at [facility] OR [facility] ??? HX TUBAL LIGATION 04/10/15 ??? HX VAGINAL DELIVERY 09/19/1993 ??? HX WISDOM TEETH EXTRACTION TEEN ??? SC ARTHROPLASTY TMJ+PROSTHESIS N/A 11/03/2018 TEMPOROMANDIBULAR JOINT PROSTHETIC PLACEMENT performed by Dylon Fung MD at [facility] ??? SC EXC SKIN BENIG 0.6-1CM TRUNK,ARM,LEG 08/13/2012 CYST LESION MASS EXCISION performed by Kraig Gabriel MD at [facility] ??? SC EXC SKIN BENIG 0.6-1CM TRUNK,ARM,LEG 09/15/2012 CYST LESION MASS EXCISION performed by Kraig Gabriel MD at [facility] ??? SC EXC SKIN BENIG 0.6-1CM TRUNK,ARM,LEG Left 06/17/2018 CYST LESION MASS EXCISION performed by Kraig Gabriel MD at [facility] ??? SC LAP,CHOLECYSTECTOMY N/A 11/27/2018 CHOLECYSTECTOMY LAPAROSCOPIC POSS OPEN performed by Ignacio Frost MD at [facility] ??? SC MYRINGOPLASTY Left 06/17/2018 MYRINGOPLASTY performed by Kraig Gabriel MD at [facility] ??? SC NERVOUS SYSTEM SURGERY UNLISTED N/A 11/03/2018 STEROID INJECTION performed by Dylon Fung MD at [facility] ??? SC PREP FACE/ORAL PROST UNLISTED 06/17/2018 TEMPOROMANDIBULAR JOINT PROSTHETIC REMOVAL performed by Dylon Fung MD at [facility] ??? SC RECONSTR JAW,FULL,ENDO IMPLNT from 2000 to 2018 total of [address] Dylon Fung ??? SC REMOVAL SUPERFICIAL IMPLANT 11/03/2012 HARDWARE REMOVAL performed by Dylon Fung MD at [facility] ??? SC REMV EXT CANAL SOFT TISSUE LESN 11/03/2012 AURICULAR CYST LESION MASS EXCISION performed by Dylon Fung MD at [facility] Social History Tobacco Use ??? Smoking status: Former Smoker Packs/day: 0.25 Years: 15.00 Pack years: 3.75 Types: Cigarettes Last attempt to quit: 06/08/2018 Years since quittin.5 ??? Smokeless tobacco: Never Used ??? Tobacco comment: OFF AND ON Substance Use Topics ??? Alcohol use: No Alcohol/week: 0.0 oz No family history on file. Previous Anesthesia Problems/Concerns:Known difficult intubation; woke up; flat lined in 2011 History of PONV No Review of Systems Cardiovascular: CAD GA 2012 flat lined in 2007 in 12 hour surgery Respiratory: former smoker david unable to wear cpap Gastroenterology: negative PHYSICAL EXAM BP 113/69 (BP Location: Left arm, Patient Position (BP): Sitting) Pulse 74 Temp 36.5 ??C (Temporal) Resp 18 Ht 5' 4.25 (1.632 m) Wt 81.5 kg (179 lb 9.6 oz) LMP 12/24/2018 SpO2 96% BMI 30.59 kg/m?? Weight: Weight: 81.5 kg (179 lb 9.6 oz) (01/12/19 1052) Height: Ht Readings from Last 1 Encounters: 01/12/19 5' 4.25 (1.632 m) BMI: Body mass index is 30.59 kg/m??. Airway: normal range of motion: Airway Class: III (soft palate, base of uvula visible); limited oral opening tmj disease Lungs: clear to auscultation bilaterally, normal respiratory effort Heart: regular rate and rhythm, S1, S2 normal, no murmur, click, rub or gallop Neuro: alert, oriented x 3, no defects noted in general exam. Vascular Access: None LABS Lab Results Component Value Date/Time WBC [...] 07:09 AM No results found for: GLUCPOC EK sinus rhythm Other Studies/Considerations: None Postop pain management discussed yes Smoking/Tobacco Counseling: None Recommendations: None [facility] report reviewed. No interval changes in patient's history or review of systems. No none ASA Physical Status: ASA 3 - Patient with moderate systemic disease with functional limitations I have seen and examined this patient and confirm that all data is current and accurate. Yes Choice of Anesthesia/Anesthesia Plan: Proceed and General I have discussed the anesthetic options and the risks/benefits with the patient/family. Questions have been solicited and answered. Yes Annie Barrow MD documented in this encounter Plan of [...] at 1313, Routine, Antibiotic Indication: Surgical prophylaxis Given 01/12/2019 1:08 PM CDT 2,000 mg dexamethasone (DECADRON) injection INTRA-PROCEDURE PRN, Starting on Thu01/12/19 at 1311, Until Thu01/12/19 at 1338, Routine, Anesthesia Intra-op Given 01/12/2019 1:11 PM CDT 8 mg fentaNYL PF (SUBLIMAZE) 50 mcg/mL injection INTRA-PROCEDURE PRN, Starting on Thu01/12/19 at 1256, Until Thu01/12/19 at 1338, Routine, Anesthesia Intra-op Given 01/12/2019 12:56 PM CDT 100 mcg lactated ringers infusion IV, at 150 mL/hr, PRE-PROCEDURE CONTINUOUS, Starting on Thu01/12/19 at 1115, Until Thu01/12/19 at 1744, Routine New Bag 01/12/2019 1:23 PM CDT New Bag 01/12/2019 11:49 AM CDT 150 mL/hr lidocaine PF (XYLOCAINE MPF) 100 mg/5 mL (2 %) injection INTRA-PROCEDURE PRN, Starting on Thu01/12/19 at 1259, Until Thu01/12/19 at 1338, Routine, Anesthesia Intra-op Given 01/12/2019 12:59 PM CDT 50 mg midazolam (PF) (VERSED) injection INTRA-PROCEDURE PRN, Starting on Thu01/12/19 at 1253, Until Thu01/12/19 at 1338, Routine, Anesthesia Intra-op Given 01/12/2019 12:53 PM CDT 2 mg ondansetron (ZOFRAN) 4 mg/2 mL injection INTRA-PROCEDURE PRN, Starting on Thu01/12/19 at 1322, Until Thu01/12/19 at 1338, Routine, Anesthesia Intra-op Given 01/12/2019 1:22 PM CDT 4 mg propofol (DIPRIVAN) injection INTRA-PROCEDURE PRN, Starting on Thu01/12/19 at 1300, Until Thu01/12/19 at 1338, Anesthesia Intra-op Given 01/12/2019 1:04 PM CDT 40 mg Given 01/12/2019 1:00 PM CDT 160 mg succinylcholine Chloride (ANECTINE) 140 mg/7 mL (20 mg/mL) injection INTRA-PROCEDURE PRN, Starting on Thu01/12/19 at 1301, Until Thu01/12/19 at 1338, Routine, Anesthesia Intra-op Given 01/12/2019 1:01 PM CDT 100 mg documented in this encounter Care Teams Aboriginal Ceremonial Celebrant Relationship Specialty Start Date End Date Sg Richards MD [address] [place] [address] PCP - General Internal Medicine 06/10/17 08/13/21 documented as of this encounter
--- OUTSIDE RECORDS SUMMARY | 2024-07-16 13:00 | XMS_ITS | Encounter Summary ---
Author Organization [facility] Address [address] [place]: Epic Prelude ADT [place] [address] Care Team Providers Care Accounts Payable Processor Name Role Phone Sg Richards MD Primary Care Provider [phone]- [phone] Encounter Details Date Type Department Care Team (Latest Contact Info) Description 05/13/2021 Travel Social History Tobacco Use Types Packs/Day [...] have Coronavirus / COVID-19? No / Unsure 05/13/2021 10:13 AM CDT documented as of this encounter Plan of Treatment Not on file documented as of this encounter Visit Diagnoses Not on filedocumented in this encounter Care Teams Accounts Payable Processor Relationship Specialty Start Date End Date Sg Richards MD [address] [place] [address] PCP - General Internal Medicine 06/10/17 08/13/21 documented as of this encounter
--- OUTSIDE RECORDS SUMMARY | 2024-07-16 13:00 | XMS_ITS | Encounter Summary ---
Author Organization [facility] Address [address] [place]: Epic Prelude ADT [place] [address] Care Team Providers Care Instrumentation Technologist Name Role Phone Sg Richards MD Primary Care Provider [phone]- [phone] Encounter Details Date Type Department Care Team (Latest Contact Info) Description 08/13/2021 Travel Social History Tobacco Use Types Packs/Day [...] have Coronavirus / COVID-19? No / Unsure 08/13/2021 12:10 PM VEIN ACCESS TECHNICIAN documented as of this encounter Plan of Treatment Not on file documented as of this encounter Visit Diagnoses Not on filedocumented in this encounter Care Teams Instrumentation Technologist Relationship Specialty Start Date End Date Sg Richards MD [address] [place] [address] PCP - General Internal Medicine 06/10/17 08/13/21 documented as of this encounter
--- OUTSIDE RECORDS SUMMARY | 2024-07-16 13:00 | XMS_ITS | Encounter Summary ---
Author Organization [facility] Address [address] [place] [address] Care Team Providers Care Criminal Investigative Agent Name Role Phone Sg Richards MD Primary Care Provider [phone]- [phone] Reason for Visit * Auth/Cert Specialty Diagnoses / Procedures Referred By Suman t Referred To Contact Diagnoses LEFT TMJ ANKYLOSIS Dylon Fung MD [address] [address] Referral ID Status Reason Start Date Expiration Date Visits Re quested Visits Authorized [id number] 12/17/2018 1 1 Encounter Details Date Type Department Care Team (Late st Contact Info) Description 01/12/2019 11:45 AM CDT - 01/12/2019 12:30 PM CDT Surgery [facility] Operating Room [address] [place] [address] Dylon Fung MD [address] [address] ORALMAXILLOFACIAL DEVICE REMOVAL Surgery Details Date/Time Status Location OR Service Patient Class Case Class Case Type Trauma Case? 01/12/2019 11:45 AM Posted [facility] OR MAIN OR 26 Oralmaxillofacial Surgical OP/Extende d Care Elective No Panel 1 Procedure LRB Anes Op Region Wound Class Comments ORALMAXILLOFACIAL DEVICE REMOVAL N/A General Mouth Clean Contaminated-II REMOVE ARCH BARS FROM MAXILLA & MANDIBLE Surgeon Surgeon Role Service Panel Dylon Fung MD Primary Oralmaxillofacial 1 Gowducheruvu, Wanda, DDS Fellow Oralmaxzeina al 1 Case Notes WORKS COMP CLAIM # [id number] CPT 16929 documented in this encounter Social History Tobacco [...] Sign Reading Time Taken Comments Blood Pressure 113/69 01/12/2019 10:52 AM CDT Pulse 74 01/12/2019 10:52 AM CDT Temperature 36.5 ??C (97.7 ??F) 01/12/2019 10:52 AM C DT Respiratory Rate 18 01/12/2019 10:52 AM CDT Oxygen Saturation 96% 01/12/2019 10:52 AM CDT Inhaled Oxygen Concentration - - Weight 81.5 kg (179 lb 9.6 oz) 01/12/2019 10:52 AM CDT Height 163.2 cm (5' 4.25 ) 01/12/2019 10:52 AM C DT Body Mass Index 30.59 01/12/2019 10:52 AM CDT documented in this encounter Discharge Instructions * Discharge Instructions* Kristi Almaraz, CHIN - 01/12/2019 3:06 PM CDT SAFETY For [...] afterevery meal or drink but water. ?? [place] your teeth regularly, do not brush the [...] postoperative pain FOLLOW-UP Call the office at [phone] to make an appointment 1 week after surgery [address] Dr[address] Fung. Once you are home, if you develop any of the following symptoms, call your physician. Difficulty in breathing, persistent nausea or vomiting, profuse bleeding at incision site, pain that is unusual, temperature greater than 101 degrees. If you cannot contact your physician, call or come to the Emergency Room at [place] ([phone]) or the nearest Emergency Room. In an [...] of this encounter H&P Notes * Wanda Peres, MORELIA - 01/12/2019 12:23 PM CDT I have reviewed the last H&P and examined the patient today and there are no changes. Wanda Peres DDS documented in this encounter OR Notes * Operative Report - Wanda Peres DDS - 01/12/2019 1:29 PM CDT Operative Report Kayla Avila [id number] Pre-operative Diagnosis: LEFT TMJ ANKYLOSIS Post-operative Diagnosis: [...] is ready for hardware removal. Procedure Start: 1317 Procedure End: 1325 Description of Procedure: Patient [...] from the original note were not included. [facility] Pre-Procedure Instructions PACE PACE Name: Kayla Avila Age: 43 y.o. Please report to the: [x] Surgery Center [] [facility] (2nd Floor) [] Other: Date of Procedure: [...] DO NOT [facility] (unless otherwise instructed). ?? WEAR comfortable, loose fitting clothes to the hospital that will fit over dressings after your surgery. ?? WEAR GLASSES instead of contact lenses to the hospital; bring a case if possible for glasses, dentures, and hearing aids as you will be asked to remove these items before your surgery. ?? BRING your insurance cards and mobile lounge driver's license or photo ID. DO NOT [...] pain/comfort utilizing verbal/nonverbal pain scales; assess culturalor synagogue indicators attached to pain; administer pain medications [...] ANKYLOSIS Case Notes WORKS COMP CLAIM # [id number] CPT 51654 POC , URINE Routine 01/12/2019 11:50 AM CDT documented in this encounter Results * POC , URINE (01/12/2019 11:50 AM CDT) HCG QUAL URINE Negative Negative 01/12/2019 11:50 AM CDT [facility] TAX MANAGER PUBLIC NAME POC KIM LEMUS (YSABEL) 01/12/2019 11:50 AM CDT [facility] [employer] [facility] Urine 01/12/2019 11:5 0 AM CDT 01/12/2019 1:47 PM CDT Dylon Fung MD POINT OF CARE TESTIN G [facility] [employer] [facility] CLIA# [id number] [address] [place] [address] documented in this encounter Visit Diagnoses Not [...] 11:49 AM CDT 0.3 mL Hand, Left lidocaine-EPINEPHrine (XYLOCAINE-EPI) 1 %-1:100,000 injection INTRA-PROCEDURE PRN, Starting on Thu01/12/19 at 1315, Until Thu01/12/19 at 1333, Routine, Intra-op Given 01/12/2019 1:15 PM CDT 8 mL morphine 4 mg/mL injection 2 mg 2 mg, IV, POST-PROCEDURE Q 5 MINUTES PRN, 5 doses, Starting on Thu01/12/19 at 1134, Until Thu01/12/19 at 1744, Pain, Routine, PACU ondansetron (ZOFRAN) 4 mg/2 mL injection 4 mg 4 mg, IV, POST-PROCEDURE ONCE PRN, 1 dose, Starting on Thu01/12/19 at 1134, Until Thu01/12/19 at 1744, Nausea/Emesis, Routine, PACU sodium chloride 0.9 % irrigation solution INTRA-PROCEDURE PRN, Starting on Thu01/12/19 at 1316, Until Thu01/12/19 at 1333, Routine, Intra-op Given 01/12/2019 1:23 PM CDT 1,000 mL Opera tive Site documented in this encounter Active and Recently [...] PRN) documented in this encounter Care Teams Criminal Investigative Agent Relationship Specialty Start Date End Date Sg Richards MD [address] [place] [id number] PCP - General Internal Medicine 06/10/17 08/13/21 documented as of this encounter
--- OUTSIDE RECORDS SUMMARY | 2024-07-16 13:00 | XMS_ITS | Encounter Summary ---
Author Organization [facility] Address [address] [place] [address] Care Team Providers Care Raw Juice Weigher Name Role Phone Sg Richards MD Primary Care Provider [phone] Encounter Details Date Type Department Care Team (Late st Contact Info) Description 01/19/2019 Abstract [facility] Trauma and General Surgery [address] [id number] Ignacio Frost MD NO ADDRESS ON FILE Social History Tobacco Use Types Packs/Day Years [...] on filedocumented in this encounter Care Teams Raw Juice Weigher Relationship Specialty Start Date End Date Sg Richards MD [address] [place] [id number] PCP - General Internal Medicine 06/10/17 08/13/21 documented as of this encounter
--- OUTSIDE RECORDS SUMMARY | 2024-07-16 13:00 | XMS_ITS | Encounter Summary ---
Author Organization [facility] Address [address] [place] [address] Care Team Providers Care Deck Mate Name Role Phone Davi Georges MD Primary Care Provider [phone] Reason for Visit * Auth/Cert Specialty Diagnoses / Procedures Referred By Contac t Referred To Contact Diagnoses [facility] Procedures [place] OPEN REDUCTN TEM-MANDIBLE DISLOC NY OPEN REDUCTN TEM-MANDIBLE DISLOC [place] REM IMP TOOTH W MUCOPER FLP [place] ODONTICS ENDOSTEAL IMPLANT Dylon Fung MD [address] [address] Referral ID Status Reason Start Date Expiration Date Visits Re quested Visits Authorized [id number] 07/11/2021 1 1 Encounter Details Date Type Department Care Team (Late st Contact Info) Description 11/28/2021 2:32 PM CDT - 11/28/2021 3:52 PM CDT Surgery [facility] Operating Room [address] [place] [address] Dylon Fung MD [address] [address] TEETH MULTIPLE EXTRACTION Surgery Details Date/Time Status Location OR Service Patient Class Case Class Case Type Trauma Case? 11/28/2021 2:32 PM Posted [facility] OR MAIN OR 21 Oralmaxillofacial Surgical OP/Extende d Care Elective No Panel 1 Procedure LRB Anes Op Region Wound Class Comments TEETH MULTIPLE EXTRACTION N/A General Mouth Clean Contaminated-II TEETH EXTRACTION #'S 15, 19,20 DENTAL IMPLANT INSERTION N/A General Mouth Clean Contaminated-II # 19 and 20. ACTUAL: MOBILIZATION UNDER ANESTHESIA. N/A General Face Clean Contaminated-II ACTUAL: MOBILIZATION UNDER ANESTHESIA. Surgeon Surgeon Role Service Panel Dylon Fung MD Primary Oralmaxillofacial 1 Case Notes WORKERS COMP. CLAIM # [id number] documented in this encounter Social History Tobacco [...] Sign Reading Time Taken Comments Blood Pressure 106/62 11/28/2021 12:28 PM CDT Pulse 78 11/28/2021 12:28 PM CDT Temperature 36.6 ??C (97.8 ??F) 11/28/2021 12:28 PM C DT Respiratory Rate 16 11/28/2021 12:28 PM CDT Oxygen Saturation 97% 11/28/2021 12:28 PM CDT Inhaled Oxygen Concentration - - Weight 99.8 kg (220 lb) 10/03/2021 12:31 PM CDT Height 163.2 cm (5' 4.25 ) 10/03/2021 12:31 PM C DT Body Mass Index 37.47 10/03/2021 12:31 PM CDT documented in this encounter Discharge Instructions * Discharge Instructions* Nettie Maguire - 11/28/2021 6:07 PM CDT [facility] Discharge Instructions ACTIVITY: ??? No strenuous activity [...] MD, DDS in approximately 2 weeks. Call [phone] to schedule day and time ofthe appointment [...] or come to the Emergency Room at [facility] ([phone]) or the nearest Emergency Room. In an [...] Physician: Dylon Fung MD 11/28/21 4:44 PM OMFS History and Physical Patient name: Amita Simpson Date of : 1975 Today's Date: 11/28/21 HPI: Amita Simpson is a 46 y.o. 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 Patient presents for scheduled procedure. No significant changes to health since last seen by OMFS. REVIEW OF SYMPTOMS: Within normal limits except [...] REMOVAL performed by Dylon Fung MD at [facility] OR [facility] ??? HX CRANIOFACIAL RECONSTRUCTION N/A 08/11/2018 ORALMAXILLOFACIAL DEVICE REMOVAL LT. MANDIBLE HARDWARE performed by Dylon Fung MD at [facility] OR [facility] ??? HX CRANIOFACIAL RECONSTRUCTION N/A 01/12/2019 ORALMAXILLOFACIAL DEVICE REMOVAL performed by Dylon Fung MD at [facility] OR [facility] ??? HX TUBAL LIGATION 04/10/15 ??? HX VAGINAL DELIVERY 09/19/1993 ??? HX WISDOM TEETH EXTRACTION TEEN ??? [place] ARTHROPLASTY TMJ+PROSTHESIS N/A 11/03/2018 TEMPOROMANDIBULAR JOINT PROSTHETIC PLACEMENT performed by Dylon Fung MD at [facility] OR [facility] ??? NY EXC SKIN BENIG 0.6-1CM TRUNK,ARM,LEG 08/13/2012 CYST LESION MASS EXCISION performed by Kraig Gabriel MD at [facility] OR [facility] ??? NY EXC SKIN BENIG 0.6-1CM TRUNK,ARM,LEG 09/15/2012 CYST LESION MASS EXCISION performed by Kraig Gabriel MD at [facility] ??? NY EXC SKIN BENIG 0.6-1CM TRUNK,ARM,LEG Left 06/17/2018 CYST LESION MASS EXCISION performed by Kraig Gabriel MD at [facility] OR [facility] ??? NY LAP,CHOLECYSTECTOMY N/A 11/27/2018 CHOLECYSTECTOMY LAPAROSCOPIC POSS OPEN performed by Ignacio Frost MD at [facility] ??? NY MYRINGOPLASTY Left 06/17/2018 MYRINGOPLASTY performed by Kraig Gabriel MD at [facility] OR [facility] ??? NY NERVOUS SYSTEM SURGERY UNLISTED N/A 11/03/2018 STEROID INJECTION performed by Dylon Fung MD at [facility] OR [facility] ??? NY PREP FACE/ORAL PROST UNLISTED 06/17/2018 TEMPOROMANDIBULAR JOINT PROSTHETIC REMOVAL performed by Dylon Fung MD at [facility] OR [facility] ??? NY RECONSTR JAW,FULL,ENDO IMPLNT from 2000 to 2018 total of [address] Dylon Fung ??? [place] REMOVAL SUPERFICIAL IMPLANT 11/03/2012 HARDWARE REMOVAL performed by Dylon Fung MD at [facility] ??? NY REMV EXT CANAL SOFT TISSUE LESN 11/03/2012 AURICULAR CYST LESION MASS EXCISION performed by Dylon Fung MD at [facility] Past Medical History: Diagnosis Date ??? [...] to left jaw ??? Heart attack 2010 [place] ??? History of complications due to general [...] Fung MD - 11/29/2021 4:35 AM CDT [place], [place] Patient: AMITA SIMPSON CSN: [id number] : 1975 Provider: Dylon Fung DDS, MD [...] condition. Dylon Fung DDS, MD MMODL D: [id number] V: [id number] CC Dylon Fung DDS, MD * Sabrina-OP - Carla Villatoro RN - 11/14/2021 12:32 PM CDT Images from the original note were not included. MARTHA FERGUSON PACE Routine Orders Protocol [facility] Approved by: [facility] - Medical Executive Committee Approval Date: 10/03/2021 ORDERS ARE ENTERED ???PER PROTOCOL?? Enter the protocol in the patient's electronic health record using smart phrase: .paceroutineordersprotocol Laboratory Orders: PACE/Anesthesiology Care Screening for Procedures ??? Laboratory exams obtained within 3 months prior to surgery are acceptable if normal, or at baseline. ??? Hematocrit/Hemoglobin (Snf7391) o Cases of expected major blood loss [...] Digoxin - Diuretics - Steroids ??? BUN (Wue912)/ Serum Cr (Lab66) o When use of intravenous contrast dye is planned ??? Liver function panel (Lab20) in any patient with: o Jaundice, or active liver disease ??? HgbA1c: If result not available from within 3 months of [facility] phone or in- person contact, for patients [...] otherwise ordered by a member of the [facility] Anesthesiology Staff. 1. STOP a. Seven (7) DAYS PRIOR TO SURGERY: the use of all vitamins, herbal supplements, and other alternative substances. b. Seven (7) DAYS PRIOR TO SURGERY: the use of any UNPRESCRIBED Aspirin, Excedrin and NSAIDs which include Motrin, Ibuprofen, Aleve, and Naprosyn. c. 24 HOURS PRIOR TO PLANNED ARRIVAL AT [facility]: use of angiotensin-converting enzyme (BEN) inhibitorand angiotensin receptor moise (ARB). 2. Continue- on usual schedule and take medication day of surgery with sips of water to swallow a. Aspirin and NSAIDS unless specifically instructed by surgeon to discontinue. b. All prescription medicines on routine schedule as prescribed, unless instructed otherwise Blood Bank: ??? For surgical procedures, prepare blood per [facility] Blood Bank Orders and Patient Identification for Blood Products unless additional blood or blood products have been ordered by a provider, then follow provider order * Sabrina-OP - Carla Villatoro RN - 11/14/2021 12:28 PM CDT [facility] Pre-Procedure Instructions PACE PACE Name: Amita Simpson Age: 46 y.o. Please report to the: Surgery Center [facility] Date of Procedure: 11/27/2021 ??? Limit time [...] surgery. ?? 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 DO NOT BRING [...] patient, she verbalized understanding. * Sabrina-OP - Annie Campos RN - 10/03/2021 12:51 PM CDT [facility] Pre-Procedure Instructions PACE PACE Name: Amita Simpson Age: 46 y.o. Please report to the: Surgery Center - [facility] Date of Procedure: 10/09/2021 ??? Limit time [...] surgery. ?? 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 DO NOT BRING [...] ??? gabapentin (NEURONTIN) 600 mg Oral tablet, 36106 tid Take morning of surgery with sip of water ??? buPROPion SR 12 hour (WELLBUTRIN-SR) 150 mg Oral tablet Take morning of surgery with sip of water * Sabrina-OP - Andres, Annie White RN - 10/03/2021 12:50 PM CDT Images from the original note were not included. [facility]ACE Routine Orders Protocol [facility] Approved by: [facility] - Medical Executive Committee Approval Date: 10/04/2020 ORDERS ARE ENTERED ???PER PROTOCOL?? Enter the protocol in the patient's electronic health record using smart phrase: .paceroutineordersprotocol PACE/Anesthesiology Care Screening for Procedures ??? Laboratory exams obtained within 3 months prior to surgery are acceptable if normal, or at baseline. ??? Hematocrit/Hemoglobin (Evx8670) ??? Cases of expected major blood loss [...] Digoxin - Diuretics - Steroids ??? BUN (Gpe607)/ Serum Cr (Lab66) ??? When use of [...] otherwise ordered by a member of the [facility] Anesthesiology Staff. 1. STOP a. Seven (7) DAYS PRIOR TO SURGERY: the use of all vitamins, herbal supplements, and other alternative substances. b. Seven (7) DAYS PRIOR TO SURGERY: the use of any UNPRESCRIBED Aspirin, Excedrin and NSAIDs which include Motrin, Ibuprofen, Aleve, and Naprosyn. c. 24 HOURS PRIOR TO PLANNED ARRIVAL AT [facility]: use of angiotensin-converting enzyme (BEN) [...] Procedure Name Priority Date/Time Associated Diagnosis Comments [place] OPEN TREATMENT TEMPOROMANDIBULAR DISLOCATION 11/28/2021 2:32 PM CDT [facility] Case Notes WORKERS COMP. CLAIM # [id number] DENTAL IMPLANT INSERTION 11/28/2021 2:32 PM CDT [facility] Case Notes WORKERS COMP. CLAIM # [id number] TEETH MULTIPLE EXTRACTION 11/28/2021 2:32 PM CDT [facility] Case Notes WORKERS COMP. CLAIM # [id number] POC , URINE Routine 11/28/2021 1:10 PM CDT documented in this encounter Results * POC , URINE (11/28/2021 1:10 PM CDT) HCG QUAL URINE Negative Negative 11/28/2021 1:10 PM CDT [facility] [employer] [facility] Urine 11/28/2021 1:10 PM CDT 11/29/2021 1:26 PM CDT Dylon Fung MD POINT OF CARE TESTIN G [facility] [employer] [facility] CLIA# [id number] [address] [place] [address] * (ABNORMAL) 2019 NOVEL CORONAVIRUS (COVID-19) PCR DETECTION (08/17/2021 10:18 AM SECONDARY ENGLISH TEACHER) COVID-19 PCR DETECTED( A) Not Detected 08/17/2021 5:07 PM SECONDARY ENGLISH TEACHER [facility] LABORATORY [facility] PERFORMING LAB [facility] 08/17/2021 5:07 PM SECONDARY ENGLISH TEACHER [facility] Upper Respiratory ENTIRE NASOPHARYNX / Unknown Collection / Unknown 08/17/2021 10:18 AM SECONDARY ENGLISH TEACHER 08/17/2021 1:15 PM SECONDARY ENGLISH TEACHER Narrative [facility] - 08/17/2021 5:07 PM SECONDARY ENGLISH TEACHER This test has been authorized by the [...] 2019-Novel Coronavirus. Dylon Fung MD MICROBIOLOGY - [facility] AL ORDERABLES [facility]# [id number] [place] [address] documented in this encounter Visit Diagnoses Not [...] 1225, Until Dhara 11/28/21 at 2140, Routine lidocaine-EPINEPHrine (XYLOCAINE-EPI) 1 %-1:100,000 injection INTRA-PROCEDURE PRN, Starting on Dhara 11/28/21 at 1742, Until Dhara 11/28/21 at 1751, Routine, Intra-op Given 11/28/2021 5:42 PM CDT 3 mL Opera tive Site morphine 4 mg/mL injection 2 mg 2 [...] Starting on Dhara 11/28/21 at 1644, Until [facility] 11/28/21 at 1803, Nausea/Emesis, Routine, PACU Given [...] % irrigation solution INTRA-PROCEDURE PRN, Starting on Dhara 11/28/21 at 1730, Until Dhara 11/28/21 at 1751, Routine, Intra-op Given 11/28/2021 5:30 PM CDT 1,000 mL Opera tive Site [...] er: Dylon Fung MD - Comment: prn avis) documented in this encounter Care Teams Deck Mate Relationship Specialty Start Date End Date Davi Georges MD [address] [place] [address] PCP - General Family Practice 08/14/21 documented as of this encounter
--- OUTSIDE RECORDS SUMMARY | 2024-07-16 13:00 | XMS_ITS | Encounter Summary ---
Author Organization [facility] Address [address] [place] [address] Care Team Providers Care Furniture Decals Inspector Name Role Phone Davi Georges MD Primary Care Provider [phone] Encounter Details Date Type Department Care Team ([facility] st Contact Info) Description 08/17/2021 Orders Only [facility] Pre Procedure Viral Testing [address] [place] [address] Jenifer Ortiz Preop testing Social History Tobacco Use Types Packs/Day Years [...] COVID-19? Unable to assess 08/17/2021 10:19 AM CUFFING MACHINE OPERATOR documented as of this encounter Plan of Treatment Not on file documented as of this encounter Procedures Procedure Name Priority Date/Time Associated Diagnosis Comments 2019 NOVEL CORONAVIRUS (COVID-19) PCR DETECTION Routine 08/17/2021 10:18 AM CUFFING MACHINE OPERATOR Preop testing documented in this encounter Results * (ABNORMAL) 2019 NOVEL CORONAVIRUS (COVID-19) PCR DETECTION (08/17/2021 10:18 AM CUFFING MACHINE OPERATOR) COVID-19 PCR DETECTED( A) Not Detected 08/17/2021 5:07 PM CUFFING MACHINE OPERATOR [facility] PERFORMING LAB [facility] 08/17/2021 5:07 PM CUFFING MACHINE OPERATOR [facility] Upper Respiratory ENTIRE NASOPHARYNX / Unknown Collection / Unknown 08/17/2021 10:18 AM CUFFING MACHINE OPERATOR 08/17/2021 1:15 PM CUFFING MACHINE OPERATOR Narrative [facility] - 08/17/2021 5:07 PM CUFFING MACHINE OPERATOR This test has been authorized by the [...] 2019-Novel Coronavirus. Dylon Fung MD MICROBIOLOGY - GENER AL ORDERABLES [facility] CLIA# [id number] [address] [place] [address] documented in this encounter Visit Diagnoses Diagnosis Preop testing Preoperative examination, unspecified documented in this encounter Additional Health Concerns Infection Onset Date Last Indicated Resolved Time COVID-19 08/17/2021 08/17/2021 09/16/2021 1:16 AM CUFFING MACHINE OPERATOR documented as of this encounter Care Teams Furniture Decals Inspector Relationship Specialty Start Date End Date Davi Georges MD [address] [place], [place] [address] [address] PCP - General Family Practice 08/14/21 documented as of this encounter
--- OUTSIDE RECORDS SUMMARY | 2024-07-16 13:00 | XMS_ITS | Encounter Summary ---
Author Organization [facility] Address [address] [place]: Epic Prelude ADT [address] [address] [address] Care Team Providers Care Microbiology Technologist Name Role Phone Davi Georges MD Primary Care Provider [phone] Encounter Details Date Type Department Care Team (Latest Contact Info) Description 11/14/2021 Travel Social History Tobacco Use Types Packs/Day [...] suspected to have Coronavirus/COVID-19? No / Unsure 11/14/2021 12:23 PM CDT documented as of this encounter Plan of Treatment Not on file documented as of this encounter Visit Diagnoses Not on filedocumented in this encounter Care Teams Microbiology Technologist Relationship Specialty Start Date End Date Davi Georges MD [facility] [place] [address] PCP - General Family Practice 08/14/21 documented as of this encounter
--- OUTSIDE RECORDS SUMMARY | 2024-07-16 13:01 | XMS_ITS | Encounter Summary ---
Author Organization [facility] Address [address] [place] [address] Care Team Providers Care Pickle Processor Name Role Phone Sg Richards MD Primary Care Provider Reason for Visit * Auth/Cert Specialty Diagnoses / Procedures Referred By Contac t Referred To Contact Diagnoses LT. EAR MASS Procedures [place] ARTHROPLASTY TMJ+PROSTHESIS Dylon Fung MD [address] [address] Referral ID Status Reason Start Date Expiration Date Visits Re quested Visits Authorized [id number] 04/13/2018 1 1 Encounter Details Date Type Department Care Team (Late st Contact Info) Description 06/17/2018 12:45 PM SENIOR CLINICAL CONSULTANT - 06/17/2018 3:45 PM SENIOR CLINICAL CONSULTANT Surgery [facility] Operating Room [address] [place] [id number] Dylon Fung MD [address] [address] ORALMAXILLOFACIAL DEVICE REMOVAL Surgery Details Date/Time Status Location OR Service Patient Class Case Class Case Type Trauma Case? 06/17/2018 12:45 PM Posted [facility] OR MAIN OR 28 Oralmaxillofacial Surgical OP/Extende d Care Elective No Panel 1 Procedure LRB Anes Op Region Wound Class Comments ORALMAXILLOFACIAL DEVICE REMOVAL Left General Face Clean-I LT. TMJ HARDWARE REMOVAL TEMPOROMANDIBULAR JOINT PROSTHETIC REMOVAL General Face Clean-I MOUTH WIRED SHUT Panel 2 Procedure LRB Anes Op Region Wound Class Comments CYST LESION MASS EXCISION Left General Ear Clean Contaminated-II ACTUAL EXAM UNDER ANESTHESIA, EXCISION OF LEFT EAR CANAL LESION MYRINGOPLASTY Left General Ear Clean Contaminated-II Surgeon Surgeon Role Service Panel Kraig Gabriel MD Primary Otorhinolaryngology 2 Demetri Rowe DMD Fellow Oralmaxillofa cial 1 Wanda Peres DDS Fellow Oralmaxillofaci al 1 Dylon Fung MD Primary Oralmaxillofacial 1 Case Notes WORK COMP, APPROVED, CPT 46603, 62435 documented in this encounter Social History Tobacco Use Types Packs/Day Years Used Date Smoking Tobacco: Every Day Cigarettes Smokeless Tobacco: Never Alcohol Use Standard Drinks/Week Comments No 0 (1 standard drink = 0.6 oz pur e alcohol) Sex and Gender Information Value Date Recorded Sex Assigned at Not on file Gender Identity Not on file Sexual Orientation Not on file documented as of this encounter Last Filed Vital Signs Vital Sign Reading Time Taken Comments Blood Pressure 109/69 06/17/2018 11:12 AM SENIOR CLINICAL CONSULTANT Pulse 80 06/17/2018 11:12 AM SENIOR CLINICAL CONSULTANT Temperature 36.7 ??C (98 ??F) 06/17/2018 11:12 AM SENIOR CLINICAL CONSULTANT Respiratory Rate 16 06/17/2018 11:12 AM SENIOR CLINICAL CONSULTANT Oxygen Saturation 99% 06/17/2018 11:12 AM SENIOR CLINICAL CONSULTANT Inhaled Oxygen Concentration - - Weight 95.3 kg (210 lb) 06/17/2018 11:12 AM SENIOR CLINICAL CONSULTANT Height 162.6 cm (5' 4 ) 06/17/2018 11:12 AM SENIOR CLINICAL CONSULTANT Body Mass Index 36.05 06/17/2018 11:12 AM SENIOR CLINICAL CONSULTANT documented in this encounter Discharge Summaries * Demetri Rowe DMD - 06/22/2018 3:16 PM CST Patient: Kayla Ellis Lievers / 43 y.o. / female : 1975 CSN: [id number] Admission date: 06/17/2018 Discharge date: 11/03/12 Admitting Diagnoses: LT. EAR MASS Problem List: Active Hospital Problems Diagnosis ??? Seizure disorder ??? Major depressive disorder ??? TMJ disease Resolved Hospital Problems Diagnosis Date Resolved No resolved problems to display. Consults: none. Procedures: Treatments: PICC line inserted. Significant Diagnostic Studies: microbiology: wound culture: positive for MSSA, Prevotella, Cutibacterium. Hospital Course: Patient was taken to OR. Removal of fossa part of left TMJ prosthesis. Her jaws were wired shut. Cultures were positive. A PICC line was inserted. She is tolerating PO, voiding, ambulating. She is ready for discharge Disposition: home. MEDICATIONS Prior to admission: Prescriptions Prior to Admission Medication Sig Dispense Refill Last Dose ??? lamoTRIgine (LaMICtal) 100 mg tablet Take 350 mg by mouth 2 times daily . ??? calcium carbonate (TUMS ORAL) Take by mouth 1 time daily as needed. ??? levETIRAcetam (KEPPRA) 1,000 mg tablet Take 2,000 mg by mouth 2 times daily . 06/17/2018 at 630 ??? primidone (MYSOLINE) 50 mg tablet Take 50 mg by mouth daily at bedtime. 06/16/2018 at 630 ??? pantoprazole (PROTONIX) 40 mg Tablet, Delayed Release (E.C.) Take 40 mg by mouth daily. 06/17/2018 at 630 ??? traZODone (DESYREL) 100 mg Oral tablet Take 100 mg by mouth daily at bedtime. 06/16/2018 at Unknown time ??? gabapentin (NEURONTIN) 600 mg Oral tablet Take 1,200 mg by mouth 3 times daily. 06/17/2018 at 630 ??? [DISCONTINUED] lacosamide (VIMPAT) 200 mg tablet Take 200 mg by mouth 2 times daily . Unknown at Unknown time ??? [DISCONTINUED] eslicarbazepine (APTIOM) 800 mg Tablet Take 800 mg by mouth. Unknown at Unknown time ??? [DISCONTINUED] oxyCODONE-acetaminophen (PERCOCET) 5-325 mg Oral tablet Take 1 Tab by mouth every 4 hours as needed for Pain, Moderate. 30 Tab 0 Unknown at Unknown time ??? [DISCONTINUED] HYDROcodone-acetaminophen (NORCO) 5-325 mg Oral tablet Take 1 Tab by mouth every4 hours as needed for Pain, Moderate. 30 Tab 0 06/17/2018 at 630 ??? [DISCONTINUED] amoxicillin-clavulanate (AUGMENTIN) 875-125 mg Oral tablet Take 1 Tab by mouth every 12 hours. 28 Tab 0 Unknown at Unknown time ??? buPROPion SR 12 hour (WELLBUTRIN-SR) 150 mg Oral tablet Take 150 mg by mouth 2 times daily. Unknown at Unknown time ??? [DISCONTINUED] meclizine (ANTIVERT) 12.5 mg Oral tablet Take 25 mg by mouth every 6 hours. Unknown at Unknown time ??? [DISCONTINUED] amitriptyline (ELAVIL) 10 mg Oral tablet Take 10 mg by mouth daily at bedtime. Takes six tablets every every evening for sleep ??? [DISCONTINUED] piroxicam (FELDENE) 20 mg Oral capsule Take 20 mg by mouth daily. 06/10/2018 Discharge medications and new prescriptions: Medication List START taking these medications ciprofloxacin-dexamethasone 0.3-0.1 % Drops, Suspension Commonly known as: CIPRODEX Administer 4 Drops in left ear 2 times daily for 7 days. Signed by: Demetri Rowe DMD Quantity: 7.5 mL Refills: 0 oxyCODONE-acetaminophen 7.5-325 mg Tablet Commonly known as: PERCOCET Take 1 Tablet by mouth every 4 hours as needed for Pain, Moderate May crush tablet and mix to liquid. Max Daily Amount: 6 Tablets Signed by: Demetri Rowe DMD Quantity: 20 Tablet Refills: 0 CONTINUE taking these medications buPROPion HCl 150 mg Sustained Release 12 hour tablet Commonly known as: WELLBUTRIN SR Take 150 mg by mouth 2 times daily. Refills: 0 gabapentin 600 mg tablet Commonly known as: NEURONTIN Take 1,200 mg by mouth 3 times daily. Refills: 0 lamoTRIgine 100 mg tablet Commonly known as: LaMICtal Take 350 mg by mouth 2 times daily . Refills: 0 levETIRAcetam 1,000 mg tablet Commonly known as: KEPPRA Take 2,000 mg by mouth 2 times daily . Refills: 0 pantoprazole 40 mg Tablet, Delayed [...] 1 time daily as needed. Refills: 0 STOP taking these medications HYDROcodone-acetaminophen 5-325 mg tablet Commonly known as: NORCO Where to Get Your Medications Information about where to get these medications is not yet available Ask your nurse or doctor about these medications ?? ciprofloxacin-dexamethasone 0.3-0.1 % Drops, Suspension ?? oxyCODONE-acetaminophen 7.5-325 mg Tablet Patient instructions: Activity, Diet, Wound Care, and Follow-up have been documented in the discharge instructions and will not be repeated here. Signed: Demetri Rowe DMD 06/22/2018, 3:17 PM OR CLINICAL CONSULTANT documented in this encounter Discharge Instructions * Discharge Instructions* Angela Dodd MSW - 06/23/2018 4:11 PM SENIOR CLINICAL CONSULTANT Home Health Arrangements: - [facility] ([phone]) will provide nursing visits - [facility] will provide your IV antibiotics. Please call [phone] for any questions regarding IV antibiotics [facility] Patient Instructions Care for Your Peripherally Inserted Central Catheter: What is a Peripherally Inserted Central (PICC)? A PICC or peripherally Inserted catheter is a thin, flexible tube. It is also called a central line. Central lines are used when you need to receive medicine, fluids, nutrients, or blood products forseveral weeks or more. The fluids are put through the central line so that they move quickly into the bloodstream. The line can be used many times, so you are not stuck with a needle every time. A PICC line is put through the skin into a vein in the upper arm, and threaded through the vein until the tip of the catheter reaches a large vein near the heart called the Superior Vena Cava. The point where the central line leaves the skin is called the exit site. Usually about 6 inches of the line stay outside of the body. Sometimes the line has two or three ends so that you can get more than one medicine at a time. These ends are called lumens. The end of each lumen is covered with a cap. You will feel a little pain when the doctor/RN numbs the area. You will not feel any pain when the central line is put in, maybe a little pressure. You may be a little sore for a day or two. You can take ppms-fig-[id number] pain medicine, such as Tylenol or Advil, for relief. Follow-up care is a [place] part of your treatment and safety. Be sure to make and go to all appointments, and call your doctor if you are having problems. It is also a good idea to know your test results and keep a list of the medicines you take. General guidelines Try to keep the exit site dry. When you shower, cover the site with waterproof material, such as plastic wrap. Be sure you cover both the exit site and the PICC line cap(s). Never touch the open end of the central line if the cap is off. Never use scissors, knives, pins, or other sharp objects near the PICC line or other tubing. If your central line has a clamp, keep it clamped when you are not using it. Fasten or tape the PICC line to your body to prevent pulling or dangling. Avoid clothing that rubs or pulls on your PICC line. Avoid bending or crimping your PICC line. Always wash your hands before you touch your PICC line. Check the PICC every day for signs of infection. These include pain, tenderness, swelling, drainage, pus, redness, or warmth at or near the exit site. When to change the dressing If you have a gauze dressing, change it every 24 hours. If you have a clear plastic dressing, change it every 7 days. Also change your dressing if it is damp, bloody, loose, or dirty. Your doctor mayalso give you directions for when to change the dressing. This should be done by a healthcare provider under sterile technique. How to flush the PICC line A PICC line must be flushed every day to keep it clear of blood and prevent clotting. If it ends inmore than one line (lumen), flush them in the same order each time. Depending on the type of central line you have, you will flush it with either heparin or saline solution. Your doctor or nurse willprobably give you supplies and instructions on how to flush it. A nurse may come to your home to help you at first. You will usually lie down when you flush the line. This helps prevent air from getting into your vein. Preparing the syringe or cannula 1. Be sure you have all your supplies ready. These may include the heparin or saline solution, syringes, needleless injection cannulas, alcohol swabs, and a disposal box. What you need will vary withthe type of central line you have. You may have syringes that are already filled with the solution (preloaded). 2. Wash your hands with liquid antibiotic soap for 15 seconds. Dry them with paper towels. 3. Wipe the stopper of the heparin or saline solution bottle with an alcohol swab for 5 seconds. 4. Remove the cover from the syringe, and twist the needle or cannula on to it. (It may already be attached.) 5. Remove the cover from the needle or cannula. Note: If you have a preloaded syringe, skip to the next section, Flushing the central line. 6. Pull back the plunger of the syringe, and draw air into the syringe equal to the amount of heparin or saline solution you are using. 7. Push the needle or cannula through the rubber lid of the solution bottle. 8. Push the plunger of the syringe to force air into the bottle. 9. Turn the bottle and syringe upside down. Position the tip of the needle or cannula so that it isbelow the surface of fluid in the bottle. Pull back the plunger to fill the syringe with the amountof solution you need. 10. Before you take the needle or cannula out of the bottle, check for air bubbles in liquid in thesyringe. If there are bubbles, push the plunger back in and then pull back on it again. 11. Remove the needle or cannula from the bottle. 12. Fill other syringes if you need to flush more than one lumen. Flushing the PICC line 1. Use an alcohol swab to rub the cap of the lumen you want to flush. Rub for 5 seconds, and then let the cap dry. 2. Hold the end of the central line so it does not touch anything. 3. If you have a clamp on the lumen, open it. 4. Slowly inject heparin, or quickly inject saline solution. If there is resistance, stop. Do not force it. Call your doctor. 5. If your central line has a clamp, clamp the lumen as you are finishing the injection and then remove the syringe. If your central line has a positive pressure cap, remove the syringe and then clamp the catheter. 6. Put the syringe in the disposal box. 7. Repeat the above steps for each lumen you are flushing. 8. Wash your hands with liquid antibacterial soap. PICC Line Care: After Your Visit How can you care for yourself at home? To help prevent infection, take a shower instead of a bath. Do not go swimming with a PICC line. Talk to your doctor about what activities you can do. You may not be able to do sports or exercisesthat use the upper body, such as tennis or weight lifting. Clamp or tie off the line if it breaks. Then, go see a doctor as soon as possible. Go to all appointments to flush the line. This keeps it open. A nurse or other health professional will flush the line. When should you call for help? Call 911 anytime you think you may need emergency care. For example, call if: You have severe trouble breathing. You have sudden chest pain and shortness of breath, or you cough up blood. You have a fast or uneven pulse. Call your doctor now or seek immediate medical care if: You have signs of infection, such as: Increased pain, swelling, warmth, or redness. Red streaks leading from the exit site. Pus or blood draining from the exit site. Swollen lymph nodes in your neck, armpits, or groin. A fever. You have a fever over 100?F, or you have chills. You have swelling in your face, chest, neck, or arm on the side where the central line is. You have signs of a blood clot, such as bulging veins near the catheter. Your PICC line is leaking. You feel resistance when you inject medicine or fluids into your line. Watch closely for changes in your health, and be sure to contact your doctor if: You have any concerns about your line. This document includes your current and historical medications prescribed by your physician(s). Continue to take your current medicines and any new medications exactly as prescribed. Call your doctorwho prescribed the medication if you have any questions or if you think you are having a problem with your medicine. SAFETY For the next 24 hours, you [...] minimum (no sports or strenuous activities) for 14 days. May return to work/school in 5 days. Avoid smoking and using drinking straws. MEDICATIONS Headache remedies if necessary (Motrin, Advil, Nuprin, Ibuprofen, Aspirin, Tylenol, etc)-Please check with your physician before taking any of these medications. Your lips should be kept moist with a cream or ointment such as Vaseline. Prescriptions given. DIET Full liquids. If nausea is experienced, the diet should consist of clear liquids. Drink plenty of fluids. Avoid liquids with lots of acid (examples are orange and tomato juice). Apple and grape juice usually do not burn the throat. Icy, cold fluids usually are more pleasant to thethroat. Signs of dehydration are: dry mouth and lips, infrequent urination, strong odor to the urine, dark urine, dry skin, fever, or listlessness. Dehydration can dry out the scab and cause bleeding. It is important to drink to prevent dehydration. WOUND CARE The following conditions may occur, all of which are normal. Swelling at surgical site, stiffness of the muscles which may cause difficulty in opening the mouth, slight earache or sore throat, your other teeth may ache temporarily, slight elevation in temperature for 24-48 hours, black and blue discoloration on the outside of the face near the area of surgery. Pressure dressing in place for 48 hours, then remove. Apply ice bag to face on operative side, 30 minutes on and 30 minutes off until bedtime and the next day. The third day, you may stop ice and start with moist heat. Wash wound with warm soapy water and pad dry three times per day past pressure dressing removal, then apply antibiotic ointment. OK to shower; no direct stream to wound; no wound immersion. Pat dry. FOLLOW-UP Call the office at [phone] to make an appointment for 7 days after surgery. Once you are home, if you develop any of the following symptoms, call your physician. Difficulty in breathing, persistent nausea or vomiting, profuse bleeding at incision site, pain that is unusual, temperature greater than 101 degrees. If you cannot contact your physician, call or come to the Emergency Room at [facility] ([phone]) or the nearest Emergency Room. In an emergency, Call 911 OR CLINICAL CONSULTANT documented in this encounter Medications at Time of Discharge Medication Sig Dispensed Refills Start Date End Date lamoTRIgine (LaMICtal) 100 mg tablet Take 350 [...] 150 mg by mouth 2 times daily. ondansetron (ZOFRAN) 4 mg Tablet Take 1 Tablet (4 mg) by mouth every 8 hours as needed for Nausea/Emesis. 40 Tablet 06/23/2018 08/13/2018 ciprofloxacin-dexameth asone (CIPRODEX) 0.3-0.1 % Drops, Suspension Administer 4 Drops in left ear 2 times daily for 7 days. 7.5 mL 06/22/2018 06/29/2018 oxyCODONE-acetaminophe n (PERCOCET) 7.5-325 mg Tablet Take 1 Tablet by mouth every 4 hours as needed for Pain, Moderate May crush tablet and mix to liquid. Max Daily Amount: 6 Tablets 20 Tablet 06/22/2018 08/13/2018 documented as of this encounter Progress Notes * Demetri Rowe, DMD - 06/22/2018 3:03 PM CST DOA: 06/17/2018 Date: 06/22/2018 Post op day: 5 S/P exploration/debridement and removal of fossa component of prosthetic TMJ and excision of left ear canal lesion. Subjective: New Events/Complaints: Feeling much better Current vital signs Blood pressure (!) 94/53, pulse (!) 58, temperature 98.4 ??F (36.9 ??C), temperature source Axillary, resp. rate 16, height 5' 4 (1.626 m), weight 95.3 kg (210 lb), last menstrual period 06/10/2018,SpO2 96 %. Current Medications: Current Facility-Administered Medications Ordered in [facility] Medication Dose Route Frequency Provider Last Rate Last Dose ??? flu vaccine quadrivalent 2017- (6 mo+)(PF) (FLULAVAL/FLUARIX QUAD) 60 mcg/0.5 mL syringe 60 mcg 0.5 mL IM ONCE Soto Porras MD ??? tetanus and diphtheria toxoids and acellular pertussis vaccine PF (adult) (Tdap) (ADACEL) injection syringe 0.5 mL 0.5 mL IM ONCE Soto Porras MD ??? flu vaccine quadrivalent (6 mo+)(PF) (FLULAVAL/FLUARIX QUAD) 60 mcg/0.5 mL syringe 60 mcg 0.5 mL IM ONCE Soto Porras MD ??? tetanus and diphtheria toxoids and acellular pertussis vaccine PF (adult) (Tdap) (ADACEL) injection syringe 0.5 mL 0.5 mL IM ONCE Soto Porras MD ??? Neomycin-Bacitracin Zn-Polymyxin (NEOSPORIN) topical ointment 1 Packet 1 Packet Topical BID Wanda Peres DDS 1 Packet at 06/22/18 0900 ??? ertapenem (INVanz) 1,000 mg in sodium chloride 0.9% 50 mL IVPB 1,000 mg IV q 24 hour Soto Porras MD Stopped at 06/22/18 1117 ??? heparin, porcine (pf) 10 unit/mL IV syringe 50-150 Units 50-150 Units IV q 12 hour Sukhdev Ayala MD 50 Units at 06/21/18 2138 ??? heparin, porcine (pf) 10 unit/mL IV syringe 50-150 Units 50-150 Units IV See Admin Notes Chi Ayala MD 50 Units at 06/22/18 0510 ??? sodium chloride flush injection 10-30 mL 10-30 mL IV q 12 hour Chi Ayala MD 10 mL at 06/21/18 2139 ??? sodium chloride flush injection 10-30 mL 10-30 mL IV See Admin Notes Chi Ayala MD ??? sodium chloride 0.9 % 250 mL flush bag 25 mL 25 mL IV See Admin Notes Chi Ayala MD 0 mL/hr at 06/20/18 2204 25 mL at 06/21/18 1519 ??? dextrose 5 % in water 250 mL flush bag 25 mL 25 mL IV See Admin Notes Chi Ayala MD ??? heparin injection 5,000 Units 5,000 Units subCUT q 8 hour Rohith Quiroz MD ??? ondansetron (ZOFRAN) 4 mg/2 mL injection 4 mg 4 mg IV q 4 hour PRN Rohith Quiroz MD 4 mg at 06/22/18 0808 ??? ofloxacin (OCUFLOX) 0.3 % ophthalmic solution 1 Drop 1 Drop Left Ear QID Dylon Fung MD 1 Drop at 06/22/18 1235 ??? lactated Ringers solution IV Post-Proc Continuous Lisette Ruiz MD 125 mL/hr at 06/17/18 1245 ??? dexamethasone (MAXIDEX) 0.1 % ophthalmic suspension 1 Drop 1 Drop Left Ear ONCE Larry Fung MD ??? naloxone (NARCAN) 0.4 mg/mL injection 0.1 mg 0.1 mg IV See Admin Notes Romero-Schwarz, Demetri, DMD ??? ibuprofen (ADVIL;MOTRIN) 100 mg/5 mL oral suspension 600 mg 600 mg Oral q 6 hour PRN Romero-Schwarz, Demetri, DMD ??? oxyCODONE (ROXICODONE) oral solution 7.5 mg 7.5 mg Oral q 4 hour PRN Romero- Schwarz, Demetri, DMD 7.5 mg at 06/22/18 1234 ??? morphine 4 mg/mL injection 4 mg 4 mg IV q 2 hour PRN Romero-Schwarz, Demetri, DMD 4 mg at 06/18/18 0750 ??? prochlorperazine maleate (COMPAZINE) tablet 10 mg 10 mg Oral q 6 hour PRN Romero-Schwarz, Demetri, DMD 10 mg at 06/21/18 1056 ??? traZODone (DESYREL) tablet 100 mg 100 mg Oral Daily BEDTIME GoWanda thayer, DDS 100 mg at108/22/17 2139 ??? levETIRAcetam (KEPPRA) tablet 1,000 mg 1,000 mg Oral BID GoWanda thayer, DDS 1,000 mg at 06/22/18 0902 ??? pantoprazole (PROTONIX) tablet 40 mg 40 mg Oral AC Daily Breakfast Wanda Peres, DDS 40mg at 06/21/18 0509 ??? gabapentin (NEURONTIN) capsule 600 mg 600 mg Oral BID Wanda Peres, DDS 600 mg at 06/22/18 0858 ??? lamoTRIgine (LaMICtal) tablet 100 mg 100 mg Oral BID Wanda Peres, DDS 100 mg at 06/22/18 0902 Objective: Patient Vitals for the past 8 hrs: BP Temp Temp src Pulse Resp SpO2 12/04/18 1147 (!) 94/53 98.4 ??F (36.9 ??C) Axillary (!) 58 16 96 % Intake/Output Summary (Last 24 hours) at 06/22/18 1503 Last data filed at 06/22/18 1319 Gross per 24 hour Intake 1550.07 ml Output 13 ml Net 1537.07 ml Date 06/22/18 0700 - 06/23/18 0659 Shift [id number] 5884-3343 1942-7215 24 Hour Total I N T A K E P.O. 698 698 I.V. 50 50 Shift Total 748 748 O U T P U T Urine 1 1 Emesis 0 0 Other 0 0 Shift Total 1 1 Exam: Gen: AAOx3, NAD HEENT: MMF tigh, sutures intact, mild Lt sided CN VII weakness, Mild Lt facial edema c/w procedure CV: RRR Pulm: CTABL Impression: Active Problems: Seizure disorder Major depressive disorder TMJ disease 43 year old female s/p removal of Fossa component of TMJ and excision of left ear canal lesion. Doing well Plan: Ready for DC per OMFS Waiting for home IV abx per SW F/U tomorrow in office. Demetri Rowe DMD OR CLINICAL CONSULTANT * Soto Porras MD - 06/22/2018 1:13 PM CST [place], [place] [address] ID Progress Note CSN: [id number] DATE OF SERVICE: 06/22/2018 SUBJECTIVE Kalpana looks/feels a lot better today. She is anxious to get home. OBJECTIVE VITAL SIGNS: Temperature 98.7, other vitals stable; O2 saturations 98% (room air). GENERAL: Pleasant, well developed, in no distress; she is awake/alert; she is in much better spirits. HEENT: Normocephalic and atraumatic. NECK: Soft and supple; she can actually talk a bit today; surgical incisions doing well; left facial swelling about the same (but no erythema). CARDIAC: Regular rate and rhythm, normal S1/S2. PULMONARY: Clear to auscultation bilaterally. ABDOMEN: Positive bowel sounds, soft, nontender; no organomegaly or mass. EXTREMITIES: No cyanosis or clubbing; no new/unusual skin rashes or lesions; PICC exit site benign (no phlebitis). PERTINENT DATA A. WBC-7.1, hemoglobin-12.0, platelets-178,000. B. BUN and creatinine: 11/0.71. C. LFTs today: Benign. IMPRESSION 1. Left prosthetic TMJ, chronic pyogenic arthritis and associated osteo: a. Hx began > 10 yrs ago when she had a prosthetic L TMJ implanted; b. Hx over the last several yrs (? longer) of recurrent L external auditory canal pain, swelling, drainage; c. Suspected chronic infection confirmed during surgery 06/[address] Fung and Harvey....; d. Sinus tract (ext auditory canal-TMJ; chronic TMJ infection (prosthesis partially removed; OR Cx grew MSSA, Prevotella, Cutibacterium; e. To give her a chance of cure (let alone a chance for implantation of a new joint).....; f. She needs further debridement and complete removal of any remaining prosthesis components. 2. ? Hx of CAD (including [place]). 3. GERD; DENNYS; seizure disorder. 4. Multiple L jaw surgeries (distant past; includes prosthetic L TMJ). 5. Anxiety/depression. 6. Immunizations. RECOMMENDATIONS 1. Flu, Tdap shots ordered again. 2. Invanz 1 g IV q.24. 3. HH orders written from my perspective--on her paper chart. 4. RTC in 2 wks or so [place]. 5. Disposition--per OMFS and Hospitalists. DAJ:MEDQ DID: [id number] Dictated by: Soto Porras MD OR CLINICAL CONSULTANT * Soto Porras MD - 06/21/2018 6:51 PM CST [place], [place] [address] ID Progress Note CSN: [id number] DATE OF SERVICE: 06/21/2018 RADHA Acuna was doing well--until last 24 hours when she developed nausea. She denies fever or chills. Her incisions are not draining. PHYSICAL EXAMINATION VITALS: Temp 97.9, other vitals stable; O2 sats 95% (room air). GENERAL: Pleasant, she is awake/alert; she follows all my simple commands. HEENT: Normocephalic and atraumatic, neck soft and supple; oral mucosa and posterior pharynx not visualized; left-sided surgical incisions clean/dry (no fluctuance, no drainage). CARDIAC: Regular rate and rhythm, normal S1/S2. PULMONARY: Clear to auscultation bilaterally. ABDOMEN: Positive bowel sounds, soft, nontender; no organomegaly or mass. EXTREMITIES: No cyanosis or clubbing; no new/unusual skin rashes or lesions; PICC exit site benign (no phlebitis). PERTINENT DATA 1. OR Cxs 06/17: MSSA, Prevotella, Cutibacterium;. 2. OR path 06/17: Pedunculated skin, marked acute/chronic inflammation. IMPRESSIONS 1. Left prosthetic TMJ, chronic pyogenic arthritis and associated osteo: a. Hx began > 10 yrs ago when she had a prosthetic L TMJ implanted; b. Hx over the last several yrs (? longer) of recurrent L external auditory canal pain, swelling, drainage...; c. Suspected chronic infection confirmed during surgery 06/[address] Fung and Harvey...; d. Sinus tract from the external auditory canal - TMJ; chronic TMJ infection (prosthesis partially removed); OR Cxs grew MSSA, Prevotella, Cutibacterium; e. To give her any chance of cure (let alone a chance for implantation of a new joint)...; f. She needs further debridement and complete removal of any remaining prosthesis components. 2. ? Hx of CAD (including [place]). 3. Seizure disorder; DENNYS; GERD. 4. Multiple L jaw surgeries (distant past; includes prosthetic L TMJ). 5. Anxiety/depression. RECOMMENDATIONS 1. Flu and Tdap shots ordered again. 2. Invanz 1 g IV q.24. 3. CBC, CMP tomorrow. 4. HH orders written from my perspective--on her paper chart. 5. I suspect she may be with us for at least another 24 hrs....disposition per OMFS and the Hospitalists. DAJ:MEDQ DID: [id number] Dictated by: Soto Porras MD OR CLINICAL CONSULTANT * Kraig Gabriel MD - 06/21/2018 5:45 PM CST Left otowick removed. Continue drops. RTC 7-10 days for recheck of the left ear. 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 POD #3 ?? Patient was examined at bedside. She was resting comfortably on bed. Patient is currently on Zosyn. ?? Vitals Vitals: ?? 06/19/18 1200 06/19/18 2100 06/20/18 0534 06/20/18 1306 BP: 107/60 102/59 99/60 (!) 94/68 BP Location: Right arm Right arm Right arm Right arm Patient Position (BP): Supine Supine Supine Supine Pulse: 68 (!) 55 (!) 54 (!) 51 Resp: 20 16 18 ?? Temp: 98.3 ??F (36.8 ??C) 97.4 ??F (36.3 ??C) 98.2 ??F (36.8 ??C) 96.9 ??F (36.1 ??C) TempSrc: Axillary Axillary Axillary Axillary SpO2: 97% 97% 97% 97% Weight: ? Height: ? P/E: Pressure dressing intact Sutures C/D/I MMF intact with stable reproducible occlusion Moderate left facial edema Mild leftsided CN VII weakness ?? A/P: 43 year old female s/p removal of Fossa component of TMJ and excision of left ear canal lesion ?? 1. Continue current management 2. Contact social science manager for antibiotics upon discharge 3. Monitor her HR and BP ?? Wanda Peres DDS ? OR CLINICAL CONSULTANT * Wanda Peres DDS - 06/20/2018 9:30 AM CST Patient was examined this morning. POD #3. She is NAD. P/E: Mild left facial edema Situres C/D/I MMF stable/occlusion reproducible Mild leftsided CN VII weakness A/P: 43 year old female s/p removal of ??Fossa component of TMJ and excision of left ear canal lesion ?? 1. Continue current management 2. Contact social science manager for administration of Zosyn upon discharge 3. Encourage ambulation 4. Possible discharge on 06/21/18 ?? Wanda Peres DDS ?? OR CLINICAL CONSULTANT * Rohith Quiroz MD - 06/20/2018 9:25 AM CST [facility] Adult Hospitalist Progress Note Admit Date: 06/17/2018 Date of Note: 06/20/2018, 9:25 AM PCP: Sg Richards MD LOS: 3 days Previous history of present illness, review of systems, medications, labs, studies, notes, orders and consults have been reviewed today. Subjective: Uneventful night Objective: BP 99/60 (BP Location: Right arm, Patient Position (BP): Supine) Pulse (!) 54 Temp 98.2 ??F (36.8 ??C) (Axillary) Resp 18 Ht 5' 4 (1.626 m) Wt 95.3 kg (210 lb) LMP 06/10/2018 SpO2 97% BMI 36.05 kg/m?? Exam: General: Not in any distress HEENT : Swollen left jaw Chest: Bilateral air entry CV: S1 and S2 regular Abd: Positive bowel sounds, nontender Ext: No edema Data Base: I have reviewed today's labs, if any. Assessment/Plan: 1. Hx of TMJ prosthesis, now with fistula development - s/p prosthetic removal . Cx from OR specimen - MSSA . Currently on Vanc + Zosyn . ID on consult 2. Seizure disorder . Continue Keppra 3. Depression . Continue MEDICAL SCHEDULER meds ?? DVT Prophylaxis -start subcu heparin Current Diet DIET FULL LIQUID Smith: None IV: Peripheral IV line ? Current Planned Disposition -to be determined Plan discussed with patient; questions answered; patient agrees with current plan. Current Code Status -Full Code ?? Approx 25 min were spent in the care of this patient today; this may include family conference, nursing conference and discussion with any legal nurse consultant. ?? 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 POD #2 Patient was examined at bedside. She was resting comfortably on bed. PICC line was placed. Vancomycin discontinued. Vitals: 06/19/ 1200 06/19/18 2100 06/20/18 0534 06/20/18 1306 BP: 107/60 102/59 99/60 (!) 94/68 BP Location: Right arm Right arm Right arm Right arm Patient Position (BP): Supine Supine Supine Supine Pulse: 68 (!) 55 (!) 54 (!) 51 Resp: Temp: 98.3 ??F (36.8 ??C) 97.4 ??F (36.3 ??C) 98.2 ??F (36.8 ??C) 96.9 ??F (36.1 ??C) TempSrc: Axillary Axillary Axillary Axillary SpO2: 97% 97% 97% 97% Weight: Height: P/E: Pressure dressing intact (removed today) Sutures C/D/I MMF intact with stable reproducible occlusion Moderate left facial edema Mild leftsided CN VII weakness A/P: 43 year old female s/p removal of Fossa component of TMJ and excision of left ear canal lesion 1. Continue current management 2. Contact social science manager for antibiotics upon discharge Wanda Peres DDS ?? OR CLINICAL CONSULTANT * Madai Curtis RN - 06/19/2018 9:50 AM CST Procedure, risks & benefits explained to patient, consent signed. Patient assessed for PICC placement including patient preference of left versus right upper extremity. Hand hygeine completed prior to procedure, site prepped with chlorhexidine, draped utilizing maximal sterile barrier precautions. PICC placed using lidocaine and utilizing US and MST. Confirmed tip of PICC line in SVC with ECGtechnology. Good blood return noted, flushes easily. Occlusive chlorhexidine sterile dressing applied. Tolerated procedure well. PICC placed by Kelsey Curtis RN OR CLINICAL CONSULTANT * Rohith Quiroz MD - 06/19/2018 9:03 AM CST [facility] Adult Hospitalist Progress Note Admit Date: 06/17/2018 Date of Note: 06/19/2018, 9:03 AM PCP: Sg Richards MD LOS: 2 days Previous history of present illness, review of systems, medications, labs, studies, notes, orders and consults have been reviewed today. Subjective: Nausea is better We discussed plan of care Objective: BP 111/56 (BP Location: Right arm, Patient Position (BP): Supine) Pulse 94 Temp 97.7 ??F (36.5 ??C) (Axillary) Resp 16 Ht 5' 4 (1.626 m) Wt 95.3 kg (210 lb) LMP 06/10/2018 SpO2 94% BMI 36.05 kg/m?? Exam: General: Not in acute distress HEENT: Clean dressing on the left jaw area Chest: Bilateral air entry CV: S1 and S2 regular Abd: Positive bowel sounds, nontender Ext: No edema Data Base: I have reviewed today's labs, if any. Assessment/Plan: 1. Hx of TMJ prosthesis, now with fistula development - s/p prosthetic removal . Cx from OR specimen - staph aureus . Currently on Vanc + Zosyn 2. Seizure disorder . Continue Keppra 3. Depression . Continue MEDICAL SCHEDULER meds DVT Prophylaxis -start subcu heparin Current Diet DIET FULL LIQUID Smith: None IV: Peripheral IV line Current Planned Disposition -to be determined Plan discussed with patient; questions answered; patient agrees with current plan. Current Code Status -Full Code Approx 25 min were spent in the care of this patient today; this may include family conference, nursing conference and discussion with any legal nurse consultant. 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 Patient tolerated the procedure well in the OR. POD# 1 Patient was examined at bedside. She was resting comfortably on bed. She wanted to know why her jawwas wired shut. I reiterated the reason why we decided to proceed with MMF intraoperatively. Vitals: 06/18/18 1334 06/18/18 1411 06/18/18 1600 06/18/18 2135 BP: 108/62 111/78 110/65 107/56 BP Location: Right arm Left arm Right arm Right arm Patient Position (BP): Sitting Sitting Supine Supine Pulse: 77 63 64 60 Resp: 16 16 16 16 Temp: 97.6 ??F (36.4 ??C) 98.1 ??F (36.7 ??C) 97.8 ??F (36.6 ??C) 97.6 ??F (36.4 ??C) TempSrc: Axillary Oral Axillary Axillary SpO2: 100% 98% 93% 92% Weight: Height: CRP,WBC in normal range P/E: Mild leftsided CN VII weakness Pressure dressing intact Sutures C/D/I MMF intact with stable reproducible occlusion A/P: 43 year old female s/p removal of Fossa component of TMJ and excision of left ear canal lesion. Patient was seen by Drs. Porras and Gabriella, appreciate their recommendations. 1. Continue Zosyn and Vancomycin 2. F/U wound cultures 3. PICC line 4. Contact social science manager for antibiotics upon discharge 5. SCD'S and encourage ambulation 6. Tdap and Flu shots Wanda Peres DDS OR CLINICAL CONSULTANT * Kelin Werner RN - 06/18/2018 2:27 AM CST C/O left facial pain Alternated Prn Roxicodone po and IV Morphine Left facial swelling. Gauze/Kerlix intact to left face. IV Ancef given as ordered Tolerating full liquid diet Spouse at bedside OR CLINICAL CONSULTANT documented in this encounter H&P Notes * Demetri Rowe DMD - 06/17/2018 1:04 PM CST I have reviewed the last H&P and examined the patient today and there are no changes. Demetri Romero DMD OR CLINICAL CONSULTANT documented in this encounter Consult Notes * Amaris Qiu NP - 06/23/2018 10:28 AM CST [facility] Adult Hospitalist Progress Note Admit Date: 06/17/2018 Date of Note: 06/23/2018, 10:28 AM LOS: 6 days Previous history of present illness and review of systems have been reviewed today as documented inthe H&P on 06/17/2018; medications, labs, studies, notes, orders and consults have been reviewed. I have reviewed the notes from yesterday. Subjective: Patient is resting in bed. No acute issues overnight. Reports she had some issues with jaw pain yesterday which is now improved today. Objective: BP 110/67 (BP Location: Right arm, Patient Position (BP): Lying right side) Pulse 60 Temp 98.4 ??F (36.9 ??C) (Axillary) Resp 18 Ht 5' 4 (1.626 m) Wt 95.3 kg (210 lb) LMP 06/10/2018 SpO2 96% BMI 36.05 kg/m?? Temp (24hrs), Av.2 ??F (36.8 ??C), Min:97.8 ??F (36.6 ??C), Max:98.4 ??F (36.9 ??C) Moderate amount stool (06/21/182039) Exam: Gen Head alert, cooperative, no distress, appears stated age Normocephalic, atraumatic, jaw wired shut, moderate left sided facial swelling Lungs clear to auscultation bilaterally, respirations even nonlabored Heart regular rate and rhythm, S1, S2 normal, no murmur, click, rub or gallop Abdomen soft, non-tender. Bowel sounds normal. No masses, No organomegaly Extremities extremities normal, atraumatic, no cyanosis or edema Pulses Radial and DP 2+ and symmetric Neuro Skin Alert and oriented x 3 No rash or lesions noted, pink warm and dry Data Base: I have reviewed all new labs and studies resulted and pertinent ones are noted below Assessment/Plan of Actively Managed Problems 1. 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 OR culture scant growth staph aureus, cutibacterium acnes. ID consulted, Dr. Porras has patient on ertapenem. Management per OMF and ENT. Will need IV Invanz 1 gm daily at discharge. Dr. Porras has written home health orders. 2. Hx Siezure Disorder: Continue MEDICAL SCHEDULER Lamictal and Keppra 3. Gerd: Continue PPI 4. Insomnia: Continue Trazodone DVT Prophylaxis - Heparin Smith catheter:absent Lines: Peripheral IV PT/OT:yes Current Code Status -Full Code Plan discussed with patient and spouse, questions answered. Current Planned Disposition - home once medically stable per primary team. Awaiting home health arrangements. Stable/Resolved Issues/Follow Up Needs This patient was discussed with Dr Benítez and she agrees with the above plan. Cande Qiu [facility] Hospitalist [phone] OR CLINICAL CONSULTANT Associated attestation - Joelle Benítez MD - 06/23/2018 4:56 PM SENIOR CLINICAL CONSULTANT [facility]ENDING [facility] I have seen and examined the patient. I have confirmed the [place] elements of the history and physicalexam, and have discussed the plan in detail with the MULTIFOCAL LENS INSPECTOR. I agree with the MULTIFOCAL LENS INSPECTOR's documentation with the following additions and exceptions. S: Patient wanting anti-nausea meds on discharge Physical exam: Vitals: 06/23/18 1600 BP: 109/67 Pulse: 61 Resp: 18 Temp: SpO2: 96% General: NAD CV: RRR Resp: CTAB Abd: soft, non tender, non distended Ext: no edema HEENT- unable to open jaw much Labs reviewed and noted A/P: ?? Hx of Seizure disorder: Continue MEDICAL SCHEDULER Lamictal and Keppra ?? 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 Continue InVanz for now per Dr. Porras --> will need to RTCin 2 weeks upon discharge. Cx with scant growth staph aureus, cutibacterium acnes. ?? Nausea- discharged with script for zofran Remaining per MULTIFOCAL LENS INSPECTOR 's note. * Amaris Qiu, MULTIFOCAL LENS INSPECTOR - 06/22/2018 1:06 PM CST [facility] Adult Hospitalist Progress Note Admit Date: 06/17/2018 Date of Note: 06/22/2018, 1:06 PM LOS: 5 days Previous history of present illness and review of systems have been reviewed today as documented inthe H&P on 06/17/2018; medications, labs, studies, notes, orders and consults have been reviewed. I have reviewed the notes from yesterday. Subjective: Patient is resting in bed. No acute issues overnight. She is eager to DC home. Objective: BP (!) 94/53 (BP Location: Right arm, Patient Position (BP): Supine) Pulse (!) 58 Temp 98.4 ??F(36.9 ??C) (Axillary) Resp 16 Ht 5' 4 (1.626 m) Wt 95.3 kg (210 lb) LMP 06/10/2018 SpO2 96% BMI 36.05 kg/m?? Temp (24hrs), Av.5 ??F (36.9 ??C), Min:98.2 ??F (36.8 ??C), Max:98.7 ??F (37.1 ??C) Moderate amount stool (06/21/182039) Exam: Gen Head alert, cooperative, no distress, appears stated age Normocephalic, atraumatic, jaw wired shut, moderate left sided facial swelling Lungs clear to auscultation bilaterally, respirations even nonlabored Heart regular rate and rhythm, S1, S2 normal, no murmur, click, rub or gallop Abdomen soft, non-tender. Bowel sounds normal. No masses, No organomegaly Extremities extremities normal, atraumatic, no cyanosis or edema Pulses Radial and DP 2+ and symmetric Neuro Skin Alert and oriented x 3 No rash or lesions noted, pink warm and dry Data Base: I have reviewed all new labs and studies resulted and pertinent ones are noted below Assessment/Plan of Actively Managed Problems 1. 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 OR culture scant growth staph aureus, cutibacterium acnes. ID consulted, Dr. Porras has patient on ertapenem. Management per OMF and ENT. 2. Hx Siezure Disorder: Continue MEDICAL SCHEDULER Lamictal and Keppra 3. Gerd: Continue PPI 4. Insomnia: Continue Trazodone DVT Prophylaxis - Heparin Smith catheter:absent Lines: Peripheral IV PT/OT:yes Current Code Status -Full Code Plan discussed with patient and spouse, questions answered. Current Planned Disposition - home once medically stable per primary team Stable/Resolved Issues/Follow Up Needs This patient was discussed with Dr Benítez and she agrees with the above plan. Cande CHAPARRO [facility] Hospitalist [phone] OR CLINICAL CONSULTANT Associated attestation - Joelle Benítez MD - 06/22/2018 3:56 PM SENIOR CLINICAL CONSULTANT [facility] ATTEND[facility] I have seen and examined the patient. I have confirmed the mun[place] elements of the history and physicalexam, and have discussed the plan in detail with the MULTIFOCAL LENS INSPECTOR. I agree with the MULTIFOCAL LENS INSPECTOR's documentation with the following additions and exceptions. S: Patient laying in bed- denies complaints. Physical exam: Vitals: 06/22/18 1147 BP: (!) 94/53 Pulse: (!) 58 Resp: 16 Temp: 98.4 ??F (36.9 ??C) SpO2: 96% General: NAD CV: RRR Resp: CTAB Abd: soft, non tender, non distended Ext: no edema Labs reviewed and noted A/P: ?? Hx of Seizure disorder: Continue MEDICAL SCHEDULER Lamictal and Keppra ?? 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 Continue InVanz for now per Dr. Porras. Cx with scant growth staph aureus, cutibacterium acnes Remaining per MULTIFOCAL LENS INSPECTOR 's note. * Amaris Qiu, MULTIFOCAL LENS INSPECTOR - 06/21/2018 2:19 PM CST [facility] Adult Hospitalist Progress Note Admit Date: 06/17/2018 Date of Note: 06/21/2018, 2:19 PM LOS: 4 days Previous history of present illness and review of systems have been reviewed today as documented inthe H&P on 06/17/2018; medications, labs, studies, notes, orders and consults have been reviewed. I have reviewed the notes from yesterday. Subjective: Patient is resting in bed. Reports BM this am. Has had some nausea but improved with zofran. Objective: BP 106/66 (BP Location: Right arm, Patient Position (BP): Supine) Pulse (!) 57 Temp 98.3 ??F (36.8 ??C) (Axillary) Resp 16 Ht 5' 4 (1.626 m) Wt 95.3 kg (210 lb) LMP 06/10/2018 SpO2 97% BMI 36.05 kg/m?? Temp (24hrs), Av ??F (36.7 ??C), Min:97.8 ??F (36.6 ??C), Max:98.3 ??F (36.8??C) Moderate amount stool (06/21/18 0441) Exam: Gen Head alert, cooperative, no distress, appears stated age Normocephalic, atraumatic Lungs clear to auscultation bilaterally, respirations even nonlabored Heart regular rate and rhythm, S1, S2 normal, no murmur, click, rub or gallop Abdomen soft, non-tender. Bowel sounds normal. No masses, No organomegaly Extremities extremities normal, atraumatic, no cyanosis or edema Pulses Radial and DP 2+ and symmetric Neuro Skin Alert and oriented x 3 No rash or lesions noted, pink warm and dry Data Base: I have reviewed all new labs and studies resulted and pertinent ones are noted below Assessment/Plan of Actively Managed Problems 1. 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 OR culture scant growth staph aureus, cutibacterium acnes. ID consulted, Dr. Porras has patient on ertapenem. 2. Hx Siezure Disorder: Continue MEDICAL SCHEDULER Lamictal and Keppra 3. Gerd: Continue PPI 4. Insomnia: Continue Trazodone DVT Prophylaxis - Heparin Smith catheter:absent Lines: Peripheral IV PT/OT:yes Current Code Status -Full Code Plan discussed with patient and spouse, questions answered. Current Planned Disposition - home once medically stable per primary team Stable/Resolved Issues/Follow Up Needs This patient was discussed with Dr Quiroz and he agrees with the above plan. Cande MARQUEZ-C [facility] [phone] OR CLINICAL CONSULTANT Associated attestation - Rohith Quiroz MD - 06/21/2018 3:25 PM SENIOR CLINICAL CONSULTANT I discussed this pt with Amaris Qiu NP and I agree with her plan as outlined. I also examined pt independently. 1. 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 Cx from OR specimen - MSSA . ABX simplified to Ivanz per ID . OMFS managing as well 2. Seizure disorder . Continue Keppra 3. Depression . 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 Kalpana's history actually begins back in 2002, when she was attacked by a dog. Her injuries includedextensive left-sided facial injuries. One of her subsequent surgeries was implantation of a left TMJ prosthesis. She tolerated this implant well. Apparently for years (at least 3, maybe extending back more), Kalpana has had problems with drainage,pain, and swelling of her left external auditory canal. In the past, she has been followed by an ENT in [place]. More recently, she has been followed by Dr. Kraig Gabriel here in [place]. Yesterday, Kalpana was taken to the OR by Dr. Fung and Dr. Gabriel. Dr. Gabriel examined Kalpana's left external auditory canal via microscope and found a polypoid lesion; once this lesion was debrided, he encountered a sinus tract that led to her left TMJ joint. Dr. Fung and his team then performed a debridement of her left TMJ, which included partial removal of the prosthesis (the cup component). Clearly, her joint had chronic infection (and osteo given the sinus tract to her ipsilateral external auditory canal and the loose prosthesis). I spoke at length with Dr. Fung yesterday afternoon after Kalpana's surgery. ALLERGIES Adhesive tape (hives) and erythromycin (seizures). CURRENT MEDICATIONS Vicodin, Trazodone, Ciprodex, Gabapentin, and Pantoprazole. ILLNESSES/HOSPITALIZATIONS/SURGERIES A. Excision of left external auditory canal lesion (multiple procedures). B. Numerous left jaw surgeries (including TMJ replacement probably greater than 10 years ago). C. DENNYS. D. Anxiety/depression. E. Seizure/epilepsy. F. CAD (? [place]). PHYSICAL EXAMINATION VITAL SIGNS: Temperature 97.9, BP 104/62, heart rate 62, respiratory rate 16, and O2 sats 95% (roomair). GENERAL: She is awake/alert; her jaws wired shut -- she communicates with pen/paper. I interviewed/examined her in the presence of her (who was at bedside). HEENT: Normocephalic; jaw wired shut; bulky bandages over the left side of her face. CARDIAC: Regular rate and rhythm. Normal S1/S2. PULMONARY: Clear to auscultation bilaterally. ABDOMEN: Positive bowel sounds, soft, nontender; no organomegaly or mass. EXTREMITIES: No cyanosis or clubbing; no new/unusual skin rashes or lesions. PERTINENT DATA A. WBC - 9.2, hemoglobin - 13.3, platelets - 226,000. B. BUN and creatinine: 9/0.69. C. LFTs: Benign. D. OR Cxs 06/17: 2/3 specimens growing Staph aureus. IMPRESSIONS 1. 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 Kalpana's Hx actually begins > 10 yrs ago when she had a prosthetic L TMJ implanted; b. Hx over the last several yrs (probably longer) of recurrent L external auditory canal pain, swelling, and drainage...; c. Suspected chronic infection confirmed during surgery 06/[address] Fung and Harvey...; d. 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 To give her any chance of cure (let alone the chance for implantation of a new joint)--she'll need further debridement and complete removal of any remaining prosthesis components 2. ? Hx of CAD (including [place]). 3. Seizure disorder; DENNYS; GERD 4. Multiple L jaw surgeries (distant past; includes prosthetic L TMJ). 5. Anxiety/depression. 6. Immunizations. RECOMMENDATIONS 1. Flu shot. 2. Tdap. 3. Check baseline CRP--on blood in lab. 4. Involve Cardiac Nurse Specialist--as she will need IV ATBs at [place]. 5. PICC. 6. Zosyn 3.375 g IV q.6. 7. Vanco 1.5 g IV q.12. 8. Consolidate IV ATBs based on yesterday's OR Cxs. 9. Timing of her next debridement (and removal of remaining L TMJ arthroplasty components)--per . Thank you for allowing us to participate in the care of this interesting patient. DAJ:MEDQ DID: [id number] Dictated by: Soto Porras MD OR CLINICAL CONSULTANT * Rohith Quiroz MD - 06/18/2018 8:06 AM CST [facility] Adult Hospitalist Consultation Consult requested by Dylon Bullock MD Patient Name: Kayla Avila Primary Care Physician: Sg Richards MD Date of admission: 06/17/2018 Date of Service: 06/18/2018 Reason for consultation: routine medical consult Impression and Recommendations: 1. Hx of TMJ prosthesis, now with fistula development - s/p prosthetic removal . ID consulted by primary team . OMFS managing 2. Seizure disorder . Continue Keppra 3. Depression . Continue MEDICAL SCHEDULER meds 4. DVT prophylaxis - SQ Lovenox if okay with primary team Thank you for allowing me to participate in the care of this patient. [facility] will continue to follow as needed. HPI: 43 y/o F with past medical history of seizure disorder, depression . She is now s/p TMJ prosthetic removal after she developed fistula tract. She complains nausea and pain over surgical site. Past Medical History: Diagnosis Date ??? Anxiety ??? Arthritis left jaw ??? CAD (coronary artery disease) December 2011 [place] ??? Chest pain FOR PAST 2-3 MONTHS - HEAVY FEELING IN CHEST(OCCAS RADIATES DOWN LT ARM, SOB , ALWAYS RELATED TO STRESS. PT HAS NOT HAD IT EVALUATED. ??? Depression ??? Difficult intravenous access ??? Difficult intubation small mouth opening ??? Endometriosis 2012 ??? GERD (gastroesophageal reflux disease) ??? Headache(784.0) Migraines related to left jaw ??? Heart attack 2009 ??? Obstructive sleep apnea no cpap ??? Obstructive sleep apnea (adult) (pediatric) NO MACHINE - NEVER USED MACHINE ??? Seizure disorder DX 04/2014 FAINTING SEIZURE, GRAND MAL - LAST SEIZURE 05/2014, PETIT MAL , MUSCLE TWITCHING - TOTAL 80-90 SEIZURES DAILY ??? Temporomandibular joint disorder ??? Temporomandibular joint disorders, unspecified ??? Unspecified adverse effect of anesthesia Wakes during surgery, reports cardiac arrest 2007 - MANDIBLE ARTHPOPLATY SURGERY ??? Vertigo Past Surgical History: Procedure Laterality Date ??? DILATION AND CURETTAGE 04/10/15 ??? HX TUBAL LIGATION 04/10/15 ??? HX VAGINAL DELIVERY 09/19/1993 ??? MN EXC SKIN BENIG 0.6-1CM TRUNK,ARM,LEG 08/13/2012 CYST LESION MASS EXCISION performed by Kraig Gabriel MD at [facility] OR [facility] ??? MN EXC SKIN BENIG 0.6-1CM TRUNK,ARM,LEG 09/15/2012 CYST LESION MASS EXCISION performed by Kraig Gabriel MD at [facility] OR [facility] ??? MN RECONSTR JAW,FULL,ENDO IMPLNT from 2000 to 2008 total of [address] Dylon Fung ??? MN REMOVAL SUPERFICIAL IMPLANT 11/03/2012 HARDWARE REMOVAL performed by Dylon Fung MD at [facility] OR [facility] ??? MN REMV EXT CANAL SOFT TISSUE LESN 11/03/2012 AURICULAR CYST LESION MASS EXCISION performed by Dylon Fung MD at [facility] OR [facility] Current Medications: Prescriptions Prior to Admission Medication Sig Dispense Refill Last Dose ??? lamoTRIgine (LaMICtal) 100 mg tablet Take 300 mg by mouth 2 times daily. ??? calcium carbonate (TUMS ORAL) Take by mouth 1 time daily as needed. ??? levETIRAcetam (KEPPRA) 1,000 mg tablet Take 2,000 mg by mouth 2 times daily . 06/17/2018 at 630 ??? primidone (MYSOLINE) 50 mg tablet Take 50 mg by mouth daily at bedtime. 06/16/2018 at 630 ??? pantoprazole (PROTONIX) 40 mg Tablet, Delayed Release (E.C.) Take 40 mg by mouth daily. 06/17/2018 at 630 ??? traZODone (DESYREL) 100 mg Oral tablet Take 100 mg by mouth daily at bedtime. 06/16/2018 at Unknown time ??? HYDROcodone-acetaminophen (NORCO) 5-325 mg Oral tablet Take 1 Tab by mouth every 4 hours as needed for Pain, Moderate. 30 Tab 0 06/17/2018 at 630 ??? gabapentin (NEURONTIN) 600 mg Oral tablet Take 1,200 mg by mouth 3 times daily. 06/17/2018 at 630 ??? lacosamide (VIMPAT) 200 mg tablet Take 200 mg by mouth 2 times daily . Unknown at Unknown time ??? eslicarbazepine (APTIOM) 800 mg Tablet Take 800 mg by mouth. Unknown at Unknown time ??? oxyCODONE-acetaminophen (PERCOCET) 5-325 mg Oral tablet Take 1 Tab by mouth every 4 hours as needed for Pain, Moderate. 30 Tab 0 Unknown at Unknown time ??? amoxicillin-clavulanate (AUGMENTIN) 875-125 mg Oral tablet Take 1 Tab by mouth every 12 hours. 28 Tab 0 Unknown at Unknown time ??? buPROPion SR 12 hour (WELLBUTRIN-SR) 150 mg Oral tablet Take 150 mg by mouth 2 times daily. Unknown at Unknown time ??? meclizine (ANTIVERT) 12.5 mg Oral tablet Take 25 mg by mouth every 6 hours. Unknown at Unknown time ??? amitriptyline (ELAVIL) 10 mg Oral tablet Take 10 mg by mouth daily at bedtime. Takes six tablets every every evening for sleep ??? piroxicam (FELDENE) 20 mg Oral capsule Take 20 mg by mouth daily. 06/10/2018 Medication Allergies: Allergies Allergen Reactions ??? Adhesive Tape-Silicones Hives ??? Erythromycin Seizure No family history on file. Social History: Social History Substance Use Topics ??? Smoking status: Current Every Day Smoker Packs/day: 0.25 Types: Cigarettes ??? Smokeless tobacco: Never Used ??? Alcohol use No ROS: Constitutional: no fever, chills, appetite changes, weight loss Eyes: no eye pain, visual loss, blurry vision Ears: no hearing loss, or tinnitus Mouth: no oral ulcers, sore throat Endocrine: no polyuria, polydipsia Pulm: no shortness of breath, cough, hemoptysis CV: no chest pain, PND, orthopnea, lower extremity edema GI: no abdominal pain, n/v, BRBPR, melena, diarrhea, or constipation : no hematuria, dysuria, frequency Musc: see HPI Skin: no new skin rashes Neuro: no focal motor or sensory changes. Physical Exam: Patient Vitals for the past 8 hrs: BP Temp Temp src Pulse Resp SpO2 06/18/18 0604 104/62 97.9 ??F (36.6 ??C) Axillary 62 16 95 % Intake/Output Summary (Last 24 hours) at 06/18/18 0806 Last data filed at 06/18/18 0700 Gross per 24 hour Intake 2068.29 ml Output 5 ml Net 2064.29 ml General: no obvious distress HEENT: Left jaw area clean dressing Neck: supple, carotids are + and symmetric, no significant adenopathy Lungs: CTA bilaterally CV: RRR, nl S1, S2, no significant murmur, rubs, or gallops Abd: Positive BS, soft, NT, ND, no organomegaly, no palpable masses Ext: no clubbing, cyanosis, or edema Skin: no obvious rashes Neuro: alert and oriented and answers questions appropriately. DATA BASE: Results for orders placed or performed during the hospital encounter of 06/17/18 (from the past 24 hour(s)) POC , URINE Result Value Ref Range HCG QUAL URINE Negative Negative ANAEROBIC/AEROBIC CULTURE W GRAM STAIN Result Value Ref Range GRAM STAIN No organisms observed GRAM STAIN No WBC ANAEROBIC/AEROBIC CULTURE W GRAM STAIN Result Value Ref Range GRAM STAIN No organisms observed GRAM STAIN 1+ (Rare or Occasional) WBC Rohith Quiroz MD [phone] (p) OR CLINICAL CONSULTANT documented in this encounter OR Notes * Operative Report - Kraig Gabriel MD - 06/18/2018 2:46 AM CST [place], [place] [address] Operative Report CSN: [id number] DATE OF SERVICE: 06/17/2018 PREOPERATIVE DIAGNOSIS Left ear canal lesion. POSTOPERATIVE DIAGNOSIS Left ear canal lesion. OPERATION NAME Microscopic ear exam under anesthesia, left side with excision of left external auditory canal polypoid lesion. ANESTHESIA General. COMPLICATIONS None. BLOOD LOSS Minimal. INDICATIONS Kayla is a 43-year-old female with a history of recurrent external meatal canal polyp on the left side. This was felt to be related to infection of the TMJ prosthesis on the left side. Dr. Ca planning to perform wound exploration of the TMJ, and he will dictate that portion separately. The external auditory canal lesion, we discussed removal, and she wished to go ahead. PROCEDURE IN DETAIL The patient was brought to the operating room and placed in supine position. Following induction ofgeneral anesthesia, her airway secured through a nasal tracheal intubation. She was positioned for oral surgery. After she was positioned for the oral surgical component of this, the microscope was brought in. The left ear canal was examined. Betadine prep was performed in the area. Under the operative microscope, an approximately 1 cm external auditory canal meatal polyp that was pedicled on theanterior inferior portion of the external auditory canal, was noted. The ear canal itself was edematous, but the polypoid lesion was removed with a straight Eaton blade. Bleeding was controlled with topical adrenaline. Using a lacrimal probe, very gentle probing of the base of the area yielded a fistula tract that seemed to extend down into the temporomandibular joint space. This was through theanterior external auditory canal. Following this, this was sutured in position, and she was preppedand draped by standard fashion for exploration of the TMJ, and Dr. Fung will dictate this separately. SHH:MEDQ DID: [id number] Dictated by: Kraig Gabriel MD OR CLINICAL CONSULTANT * Sabrina-OP - Esther Velasco, CHIN - 06/17/2018 4:46 PM CST Patient extremely up set and demanding to be unwired. The residents to speak to patient/she is still insisting and crying to be unwired OR CLINICAL CONSULTANT * Operative Report - Demetri Rowe DMD - 06/17/2018 4:06 PM SENIOR CLINICAL CONSULTANT Operative Report Kayla Avila [id number] DOS 06/17/2018 Pre-operative Diagnosis: LT. EAR MASS Post-operative Diagnosis: Same Procedure(s) and Anesthesia Type: Panel 1: * ORALMAXILLOFACIAL DEVICE REMOVAL * MYRINGOPLASTY - General * TEMPOROMANDIBULAR JOINT PROSTHETIC REMOVAL - General Panel 2: * CYST LESION MASS EXCISION - General Surgeon(s) and Role: Panel 1: * Dylon Fung MD - Primary * Demetri Rowe DMD - Fellow, educational assistant * Wanda Peres DDS - Assisting Panel 2: * Kraig Gabriel MD - Primary Indications: This is a 43 y.o. F. She developed a fistula tract in her left external ear canal. It was determined that the source was the left TMJ prosthesis which was done 10+ years ago. The anesthesia service transported patient to OR.?? General anesthesia was induced and a nasal endotracheal tube was secured in the standard fashion, taking care to avoid pressure on the ala of the nose.??The patient was properly padded, relieving all pressure points. Dr. Gabriel part of the procedure was performed first. Excision of ear canal lesion was performed and sent for pahtology review. Please refer to his diction for further details. A lacrimal probe wasplaced in the fistula and lead to the fossa component of the TMJ prosthesis. The patient prepped and draped in the usual fashion and the oral cavity was isolated from the surgical site.?? A formal time-out was executed.?? 1:100,000 epinephrine was infiltrated into the proposed extra-oral surgical sites. Attention was directed to the left pre-auricular region.?? A standard pre- auricular incision was marked.?? Incision was made through skin and subcutaneous tissue to the level of the SMAS. Using a hemostat with blunt dissection and the nerve stimulator dissection was carried out at the superior aspect of the incision down to the temporalis fascia.?? Attention was then directed to the middle portion of the incision.?? Using hemostat, the dissection proceeded anterior to the tragus in a supraperichondrial plane.?? The intervening tissue was then bluntly dissected while carefully using a nerve monitor to ensure protection of the facial nerve until the temporalis fascia was encountered.?? The root of the zygomatic arch was then palpated and incised with cautery after nerve testing.?? The fossa, anterior eminence and zygomatic arch were then exposed in a subperiosteal plane.?? The fossa component was identified and note to have granulation coming from underneath it. All fossa screws and thefossa itself were removed. The site was debrided of the granulation tissue. The head of the condylar prosthesis was identified and noted to have granulation tissue around it as well. However, it was determined that the patient would need long- term antibiotic and further procedures. The site was irrigated copiously with Bacitracin irrigation. A PMMA spacer mixed with Gentamycin was placed between t he prosthetic condylar head and the [place] osseous glenoid fossa. ? The pre-auricular incision was then closed in a similar fashion in layers with 4-0 Vicryl for the deep layers and a 5-0 Prolene for skin. Attention was directed intra-orally. A throat pack was placed. A total of 10 IMF screws were placedoff the field. The throat pack was removed and the patient was placed in IMF using 24G SS wire. An ear wick was placed and oxifloxacin and dexamethasone drops were placed. Bacitracin was applied to the wounds. They were covered with Telfa and a pressure dressing was applied. Sponge and needle counts were correct x 2.?? Care of the patient was turned over to the Anesthesia team for uneventful extubation and delivery of the patient to the PACU in stable condition. Findings: Granulation tissue around prosthetic condylar head and fossa. Specimens: ID Type Source Tests Collected by Time 1 : Left ear canal fluid for aerobic and anaerobic Lesion/Drainage Fluid Ear, left ANAEROBIC/AEROBIC CULTURE W GRAM STAIN Kraig Gabriel MD 06/17/2018 1415 2 : Left ear canal afb culture Lesion/Drainage Fluid Ear, left AFB CULTURE WITH STAIN Kraig Gabriel MD 06/17/2018 1416 3 : Left ear canal for fungus culture Lesion/Drainage Fluid Ear, left FUNGUS CULTURE, OTHER Kraig Gabriel MD 06/17/2018 1417 4 : TMJ SCREW & CONDYLE Hardware/Foreign Body/Implant Other, specify FUNGUS STAIN, ANAEROBIC/AEROBIC CULTURE W GRAM STAIN Dylon Fung MD 06/17/2018 1443 5 : LEFT TMJ Tissue Face ANAEROBIC/AEROBIC CULTURE W GRAM STAIN, AFB CULTURE WITH STAIN Dylon Fung MD 06/17/2018 1449 A : Left external auditory canal Tissue Ear, left PATHOLOGY Dylon Fung MD 06/17/2018 1409 Implants: Implant Name Type Inv. Item Serial No. Erp Pm Lot No. LRB No. 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 Demetri Rowe DMD OR CLINICAL CONSULTANT * Sabrina-OP - Nickie Peterson RN - 06/11/2018 3:04 PM CST Images from the original note were not included. [facility] Pre-Procedure Instructions PACE PACE Name: Kayla Avila Age: 43 y.o. Please report to the: [x] Surgery Center [] [facility] (2nd Floor) [] Other: Date of Procedure: 06/17/2018 Arrive at the time your surgeon's office [...] are the guidelines from the anesthesia department: ?? Do not eat solid food after midnight prior to your procedure. This includes but not limited to any milk product, puddings, and applesauce. ?? Do not consume energy drinks containing high levels of caffeine after midnight prior to your procedure. WITHIN 24 HOURS PRIOR TO SURGERY [...] YOU AT DISCHARGE TO TAKE YOU HOME. ?? BRING PRESCRIBED INHALERS to the hospital [...] surgery. ?? BRING your insurance cards and driver starting gate's license or photo ID. DO NOT BRING [...] updates to family and/or friends as appropriate. ADVANCED PLANNING FOR MEDICATION USE STOP Seven- fourteen (7-14) DAYS PRIOR TO SURGERY the use of all vitamins, herbal supplements, and other alternative substances. STOP Seven (7) DAYS PRIOR TO SURGERY the use of any UNPRESCRIBED Aspirin, Excedrin and NSAIDs whichinclude Motrin, Ibuprofen, Aleve, and Naprosyn. CURRENT MEDICATION LIST Pre-Surgery Instructions: Medication Instructions ??? calcium carbonate (TUMS ORAL) Continue taking as prescribed May Take the am Of Surgery If Needed , Pt gets nauseated with her Seizure meds without it ??? levETIRAcetam (KEPPRA) 1,000 mg tablet Take morning of surgery with sip of water ??? eslicarbazepine (APTIOM) 800 mg Tablet Take morning of surgery with sip of water ??? primidone (MYSOLINE) 50 mg tablet Continue taking as prescribed take the night before ??? pantoprazole (PROTONIX) 40 mg Tablet, Delayed Release (E.C.) Take morning of surgery with sip of water ??? traZODone (DESYREL) 100 mg Oral tablet Continue taking as prescribed take the night before ??? HYDROcodone-acetaminophen (NORCO) 5-325 mg Oral tablet Continue taking as prescribed may take if needed am of Surgery ??? gabapentin (NEURONTIN) 600 mg Oral tablet Take morning of surgery with sip of water ??? buPROPion SR 12 hour (WELLBUTRIN-SR) 150 mg Oral tablet Take morning of surgery with sip of water OR CLINICAL CONSULTANT documented in this encounter Miscellaneous Notes * Care Plan - Shasta Linton RN - 06/23/2018 5:12 PM CST Kayla Avila will be discharged via ambulatory to home. Kayla Avila is accompanied by spouse and will be transported via private vehicle. Discharge instructions given along with prescription. PICC in place, c/d/i. Family at bedside. Painmanageable. Denies needs. Verbalized understanding. OR CLINICAL CONSULTANT * Care Plan - Angela Dodd MSW - 06/23/2018 4:26 PM CST HOME HEALTH SERVICES [facility]ered with [facility] called. Patient can discharge. RN will see the pt at 8 AM tomorrow. CLAUDIA Hernandez, [facility] Home Health Liaison [phone] [place] [facility]: Adult and Obstetrics Day 1 ??? Patient, family, or healthcare designee is participating in individual care plan process Met Discharge Planning ??? Identify discharge needs upon admission and through discharge Progressing OR CLINICAL CONSULTANT * Care Plan - Angela Dodd MSW - 06/23/2018 3:50 PM CST Home Health Services Jered from [facility] informed this SW that [facility] is working to confirm what time the RNwill see the patient tomorrow. [facility] - [phone] The IV abx will be delivered to the home prior to nursing visit (8 AM). SW provided evening AGUILAR Doran's phone number to Jered in case he calls with an update after hours. [place] updated. Patient can discharge when Jered confirms RN visit time. CLAUDIA Hernandez, [facility] Home Health Liaison [phone] [place]: Adult and Obstetrics Day 1 ??? Patient, family, or healthcare designee is participating in individual care plan process Met Discharge Planning ??? Identify discharge needs upon admission and through discharge Progressing OR CLINICAL CONSULTANT * Care Plan - Liudmila Warner - 06/23/2018 3:47 PM CST Problem: Spiritual/Cultural Goal: Identify spiritual/cultural needs to support beliefs and values throughout hospitalization Outcome: Progressing Reason for Encounter Grieving Patient Spiritual Issues Identified Needs/hopes/resources Family cynthia/values/dynamics Level of spiritual distress (none, mild, moderate, severe) Pt got word that her father was put on hospice. Her , Lc is supportive. Family is waiting for discharge Spiritual Interventions Prayer, supportive listening and comfort Outcomes of Care Level of spiritual distress after intervention moderate Goals of Spiritual Care Help with discharge Clinical Data Associate Plan Follow up with accounting manager controller Recommendations for Healthcare Team Call crossword puzzle maker as needed Sister Liudmila Warner, SSSWAPNA, BCC, DMin Clinical Data Associate [facility] Zone: [phone] Office: [phone] OR CLINICAL CONSULTANT * Care Plan - Angela Dodd MSW - 06/23/2018 3:01 PM CST HOME HEALTH SERVICES AGUILAR spoke with Jered at [facility]. Per Jered, [facility] is seeing if they have an RN to see the patient tomorrow. Jered will call AGUILAR back within the next half hour. CLAUDIA Hernandez, [facility] Health Liaison [phone] [place]: Adult and Obstetrics Day 1 ??? Patient, family, or healthcare designee is participating in individual care plan process Met Discharge Planning ??? Identify discharge needs upon admission and through discharge Progressing OR CLINICAL CONSULTANT * Care Plan - Angela Dodd MSW - 06/23/2018 2:06 PM CST HOME HEALTH SERVICES SW called [facility] and left a voicemail for Jered. SW wanting an update on home health progress. Waiting for return call. [facility] [phone] [place]: Adult and Obstetrics Day 1 ??? Patient, family, or healthcare designee is participating in individual care plan process Met Discharge Planning ??? Identify discharge needs upon admission and through discharge Progressing OR CLINICAL CONSULTANT * Care Plan - Angela Dodd MSW - 06/23/2018 9:21 AM CST [facility] received call from Jered Carmen with [facility]. Per Jered, he is working to locate a agency tosee patient tomorrow. Jered will call once an agency is located. Patient cannot d/c until these arrangements are finalized. [facility] [phone] [place]: Adult and Obstetrics Day 1 ??? Patient, family, or healthcare designee is participating in individual care plan process Met Discharge Planning ??? Identify discharge needs upon admission and through discharge Progressing OR CLINICAL CONSULTANT * Care Plan - Demetris Rosenbaum RN - 06/23/2018 4:14 AM CST Kayla rested well throughout the shift. Pain was well controlled with pain medications. Adequate UP. Had BM and passing flatus. Turned and repositioned self often. Refused heparin and SCD's. Educated on risks and benefits of SCD's and heparin. at bedside and active in care. Discussed and agrees with POC. OR CLINICAL CONSULTANT * Care Plan - Soledad Muñiz RN - 06/22/2018 4:28 PM CST AxOX4, at bedside. Pt up independently Voiding in bathoom. BM 06/21 Tolerating full liquid diet, Zofran given before AM meds d/t nausea. Denies vomiting PICC line infusing w/o difficulty Sutures intact, neosporin applied. Payton managing pain Refused Tdap/flu/Heparin shots. OR CLINICAL CONSULTANT * Care Plan - Angela Dodd MSW - 06/22/2018 11:01 AM CST HOME HEALTH SERVICES AGUILAR spoke with Xi work comp navigzain. Xi has the order and will refer to [facility]. Per Xi, [facility] will call this worker when arrangements are finalized. SW also informed Xi pt willneed a home care agency as well. AGUILAR spoke with Jacqui at [facility]. Per Violetta, AGUILAR will get a call once the arrangements are made. CLAUDIA Hernandez, [facility] Home Health Liaison [phone] [place] [facility]: Adult and Obstetrics Day 1 ??? Patient, family, or healthcare designee is participating in individual care plan process Met Discharge Planning ??? Identify discharge needs upon admission and through discharge Progressing OR CLINICAL CONSULTANT * Care Plan - Angela Dodd MSW - 06/22/2018 9:01 AM CST HOME HEALTH SERVICES SW called work comp navigator Xi and left a voicemail. AGUILAR asked Xi to call back RAMANDEEP, as this worker is unsure if she has referred to [facility] yet. Order faxed yesterday. CLAUDIA Hernandez, [facility] Home Health Liaison [phone] [place] [facility]: Adult and Obstetrics Day 1 ??? Patient, family, or healthcare designee is participating in individual care plan process Met Discharge Planning ??? Identify discharge needs upon admission and through discharge Progressing OR CLINICAL CONSULTANT * Care Plan - Demetris Rosenbaum RN - 06/22/2018 3:41 AM CST Kayla rested well between care this shift. is at bedside and involved in care. Discussed and agreed on POC. Tolerating full liquids well. Adequate UO. Had BM and passing flatus. Turns andrepositions self often. Refused heparin injections. Explained the risks and benefits of having the heparin injections. Refused SCD's, stated she ambulates during the day. Pain controlled with pain meds. OR CLINICAL CONSULTANT * Care Plan - Shannon Avila, CHIN - 06/21/2018 4:47 PM CST Pt complains of moderate pain controlled with PO payton Complains of nausea controlled with IV zofran and PO compazine Up x1 assist to restroom Adequate UOP this shift Multiple BMs per pt All meds crushed and mixed with water to give through jaw Jaws wired shut, wire cutters at bedside at bedside helping with pt care Pt tolerated a full liquid diet Safety precautions maintained OR CLINICAL CONSULTANT * Care Plan - Angela Dodd MSW - 06/21/2018 2:32 PM CST HOME HEALTH SERVICES SW received voicemail from work comp navigatorXi. AGUILAR called Xi back and left a voicemail.AGUILAR left her direct line for a return call. IV abx order faxed to Xi as well. CLAUDIA Hernandez, [facility] Home Health Liaison [phone] [place] [facility]: Adult and Obstetrics Day 1 ??? Patient, family, or healthcare designee is participating in individual care plan process Met Discharge Planning ??? Identify discharge needs upon admission and through discharge Progressing OR CLINICAL CONSULTANT * Care Plan - Angela Dodd MSW - 06/21/2018 10:20 AM CST HOME HEALTH SERVICES SW faxed Dr. Porras's note to Xi Whyte, work comp contact for this pt. SW also left a voicemail for Xi. SW asked Xi to call this SW back if regards to home health arrangements. Waiting return call. HOME HEALTH SERVICES - CONSULT Home Health Liaison spoke with Kayla Avila regarding recommended in home services. Review of current clinical status demonstrates that patient is eligible for in home services based on current Medicare regulations/commercial insurance guidelines. Patient/POA in agreement and accepting of services. Demographics, insurance and secondary contacts as listed in EPIC have been verified. Agency choice has been provided, disclosure signature obtained and filed in paper chart. Work Comp will arrange in home services. Skilled Disciplines: Zelda TURK to sign Home Care Orders: Dr. Porras Please notify the Home Health Burnishing Machine Operator with any changes to discharge plan. Additional Comments: CLAUDIA Hernandez, [facility] Home Health Liaison [phone] [place] [facility]: Adult and Obstetrics Day 1 ??? Patient, family, or healthcare designee is participating in individual care plan process Met Discharge Planning ??? Identify discharge needs upon admission and through discharge Progressing OR CLINICAL CONSULTANT * Care Plan - Demetris Rosenbaum RN - 06/21/2018 2:51 AM CST Kayla rested between care. Turned and repositioned herself often. Passing flatus and has adequate UO. Pain was controlled with payton. Complains of nausea when taking meds and is relieved with zofran. Discussed and agrees with POC. at bedside and involved in care. OR CLINICAL CONSULTANT * Care Plan - Soledad Muñiz RN - 06/20/2018 3:48 PM CST AxOx4, at bedside. Pt up to bathroom w/ SBA Voiding per BSC. BM 06/20 VSS, edgar and low BP, MD aware, pt asymptomatic. Incision c/d/i, ear drops given per MAR. PICC line infusing w/o difficulty. Jack full liquid diet, fair appetite. Encouraging Ensures. Payton managing pain. Seizure and fall precautions maintained at all times. OR CLINICAL CONSULTANT * Care Plan - Meme Flannery RN - 06/20/2018 7:53 AM CST Pt remains AOx4 through the night, sleeping between care. Pain managed with oral Roxicodone. Pt tolerating full liquid diet and crushed meds. VSS. Lc remains at bedside. OR CLINICAL CONSULTANT * Care Plan - Soledad Muñiz RN - 06/19/2018 3:21 PM CST A&O x4 VSS SBA Pt jaw wired shut, able to use a straw to drink liquid Medications crushed and given through straw Pain managed with liquid Yudelka Nausea managed with Zofran Voids per bathroom, Last BM MEDICAL SCHEDULER PICC line place in left arml in radiology Personal items and call light within reach at bedside Full liquid diet, fair appetite. Dressing removed by , sutures intact Written by SN Yonny Co-Signed by Phyllis Liriano RN OR CLINICAL CONSULTANT * Treatment Plan - Madai uCrtis RN - 06/19/2018 8:54 AM CST DIAGNOSTIC TESTS Protocol (X-RAYS) for Placement Verification of Enteral Tubes; Central Venous Lines AND pH PROBE [facility] ORDERS ARE ENTERED ???PER PROTOCOL?? Enter the protocol in the patient???s electronic health record using [employer]: .diagnostictestsprotocol Nursing Orders: CENTRAL VENOUS LINE PLACEMENT o Following insertion of a central intravenous line, obtain a chest x-ray to confirm tip location. NOTE - NO chest x-ray is required if ECG technology or fluoroscopy is utilized to confirm tip location during PICC line insertion. ??? However, if the ECG technology is utilized and there is any question about the location of the catheter tip, a chest x-ray may be obtained to confirm tip location. ENTERAL FEEDING o Unless enteral feeding tube placed by endoscopy with tip verification, obtain an ???X-ray of abdomen for feeding tube?? placement upon insertion of an oral or nasogastric enteral tube into the stomach or small bowel for the purpose of enteral feeding, medication administration, decompression or aspiration. AND - FOR GENERAL CARE UNITS - notify the Radiologist, when the ???X-ray of abdomen for feeding tube?? placement has been obtained for prompt interpretation. - IN CRITIICAL CARE UNITS - notify the attending physician when the ???X-ray of abdomen for feedingtube?? placement has been obtained for prompt interpretation o Verify correct tube placement and a nutrition order is in the health record prior to the initiation or resumption of enteral feedings. pH PROBE o Following insertion of a pH probe, obtain a chest x-ray, unless otherwise ordered by provider. Diagnostic Test Orders: CENTRAL VENOUS LINE o Enter order for XR Chest PA or AP (can be done portable) (XR 1060) and indication for x-ray ENTERAL FEEDING (for enteral feeding, medication administration, decompression, or aspiration) o Enter order XR ABDOMEN FOR FEEDING TUBE (XR 1004) STAT. ADD the nurse call- back number to the EHRorder AND indication for x-ray pH PROBE o Enter order for XR Chest PA or AP (can be done portable) (XR 1060) and indication for x-ray Initiating Department(s): Date: 10/2014 Department(s) Nursing Reviewed: 05/2016; 01/2017; 01/2018 Revised: 05/2016; 01/2017; 01/2018 Approved by: Medical Executive Committee, Nursing Leadership, Pharmacy & Therapeutics Date: 01/2018 OR CLINICAL CONSULTANT * Care Plan - Livia Roman RN - 06/18/2018 3:48 PM CST Kayla complained of 30/10 pain in AM; multiple medications provided; decreased in the afternoon; advised to try ibuprofen to help with inflammation refused to try Complained of continuous nausea; multiple medications provided per MAR; verbalized small amounts ofrelief Eating a small amount of full liquid diet Ambulating with standby [place] [facility] Dressing on L ear c/d/i Refused turned team multiple times; repositioning self in bed Resting quietly between care Phone, call light and personal items within reach OR CLINICAL CONSULTANT * Care Plan - Kathleen Puri RN - 06/18/2018 2:34 PM CST Problem: Discharge Planning Goal: Identify discharge needs upon admission and through discharge Outcome: Progressing Clinical documentation reviewed. Comprehensive Discharge Planning Risk Assessment was completed. Readmission Risk (patient becomes high risk with a score of 8 or greater) 0 Total Score Total Score of 9 or below does not identify immediate needs for discharge. Age Score: 0 Disability Score: 0 Prior Living Status Score: {0 Mobility Limitation Score: 0 TOTAL SCORE: 0 I met with patient and spouse to discuss discharge planning. Dr Porras is indicating a plan for home infusion / antibiotics. Patient is agreeable to home care. Have contacted Xi Whyte / [email or web address] for [employer] (work comp) / ph:[phone] /// F: [phone].She stated she would need clinical to support the need for infusion. She stated she will be out of the office at 1530 EST and not back until Thursday. She states the process would be that once approved, she would referr to [facility] to arrange home infusion. I faxed the available clinical ( Dr Porras's note not available) for her review. I left a voice message for Xi at [phone]. I have had no respo nse. Please place consult if needs for discharge are identified. Care Management will continue to follow for discharge planning. Kathleen Puri R.N. / [facility] [phone] OR CLINICAL CONSULTANT * Care Plan - Akosua Damon RN - 06/17/2018 8:31 PM CST Undress and Assess performed by: Akosua White Admission or upon transfer to: [facility] from PACU ~~~~~~~~~~~~~~~~~~~~~~~~~~~~ Is the patient a paraplegic/quadriplegic? no Does the patient have new purple/lee ann/dark red over bony prominences? no Does the patient have an ostomy? No Is the length of stay >2 weeks? ~If ANY answer 'yes'- please consult~ Patient does not have skin breakdown. Wound care consult was not initiated. Location/ Description of breakdown: Apply Protective Dressings to Sacrum and Heels (Mepilex) as per Pathway Patient arrived to this room with the following belongings/valuables:(ie:dentures, hearing aids, glasses): Patient arrived to this room with the following medical equipment/devices (ie: insulin pump, home CPAP, walker): All Jewelry removed from patient none Disposition of belongings/valuables: Patient arrived to floor w/ and sister at bedside. Jaw is wired shut, bandage to left ear w/netting over face. Patient arrived very anxious and in pain. Oral pain med given & patient tolerated. Swallowing good using feeding tube, and patient is feeling more comfortable using it. Patient remains in bed w/ at bedside and call light w/in reach. OR CLINICAL CONSULTANT * Care Plan - Lelo Chua RN - 06/17/2018 12:28 PM CST Knowledge deficit related to procedure/environment Interventions: Assess learning needs and willingness to learn; give clear, concise explanations of the environment and sequence of events surrounding the periop experience; address patient/family questions and concerns; provide teaching as indicated, provide teaching related to postoperative pain assessment utilizing pain scales Expected Outcome: Patient verbalizes or demonstrates awareness/understanding of surgery and perioperative experience Outcome Met: Patient/Family verbalizes understanding of pre op procedures. OR CLINICAL CONSULTANT documented in this encounter Plan of Treatment Not on file documented as of this encounter Procedures Procedure Name Priority Date/Time Associated Diagnosis Comments TELEMETRY REPORT 06/24/2018 3:33 PM SENIOR CLINICAL CONSULTANT CBC WITH DIFFERENTIAL Routine 06/22/2018 5:10 AM SENIOR CLINICAL CONSULTANT COMPREHENSIVE METABOLIC PANEL Routine 06/22/2018 5:10 AM SENIOR CLINICAL CONSULTANT IR VENOUS ACCESS Routine 06/19/2018 10:00 AM SENIOR CLINICAL CONSULTANT CBC WITH DIFFERENTIAL Routine 06/18/2018 11:14 AM SENIOR CLINICAL CONSULTANT C-REACTIVE PROTEIN Routine 06/18/2018 11:14 AM SENIOR CLINICAL CONSULTANT COMPREHENSIVE METABOLIC PANEL Routine 06/18/2018 11:14 AM SENIOR CLINICAL CONSULTANT AFB CULTURE WITH STAIN Routine 8 2:49 PM SENIOR CLINICAL CONSULTANT ANAEROBIC/AEROBIC CULTURE W GRAM STAIN Routine 06/17/2018 2:49 PM SENIOR CLINICAL CONSULTANT ANAEROBIC/AEROBIC CULTURE W GRAM STAIN Routine 06/17/2018 2:43 PM SENIOR CLINICAL CONSULTANT FUNGUS CULTURE, OTHER Routine 06/17/2018 2:17 PM SENIOR CLINICAL CONSULTANT AFB CULTURE WITH STAIN Routine 8 2:16 PM SENIOR CLINICAL CONSULTANT ANAEROBIC/AEROBIC CULTURE W GRAM STAIN Routine 06/17/2018 2:15 PM SENIOR CLINICAL CONSULTANT PATHOLOGY Pathology 06/17/2018 2:09 PM SENIOR CLINICAL CONSULTANT POC , URINE Routine 06/17/2018 12:52 PM SENIOR CLINICAL CONSULTANT MYRINGOPLASTY 06/17/2018 12:10 PM SENIOR CLINICAL CONSULTANT LT. EAR MASS Case Notes WORK COMP, APPROVED, CPT 79906, 67749 TEMPOROMANDIBULAR JOINT PROSTHETIC REMOVAL 06/17/2018 12:10 PM SENIOR CLINICAL CONSULTANT LT. EAR [place]ASS Case Notes WORK COMP, APPROVED, CPT 42483, 08648 CYST LESION MASS EXCISION 06/17/2018 12:10 PM SENIOR CLINICAL CONSULTANT LT. [place]AR [place] Case Notes WORK COMP, APPROVED, CPT 65351, 42923 ORALMAXILLOFACIAL DEVICE REMOVAL 06/17/2018 12:10 PM SENIOR CLINICAL CONSULTANT LT. EAR [place] Case Notes WORK COMP, APPROVED, CPT 91421, 37921 EDUCATION ANESTHESIA (ADULT) Routine 06/11/2018 3:18 PM SENIOR CLINICAL CONSULTANT documented in this encounter Results * TELEMETRY REPORT (06/24/2018 3:33 PM SENIOR CLINICAL CONSULTANT) Provider Scanning ECG ORDERABLES * (ABNORMAL) CBC WITH DIFFERENTIAL (06/22/2018 5:10 AM SENIOR CLINICAL CONSULTANT) WBC 7.1 4.0 - 9.8 K/uL 06/22/2018 5:36 AM [facility] RBC 3.58(L) 3.90 - 4.90 M/uL 06/22/2018 5:36 AM [facility] HEMOGLOBIN 12.0 11.8 - 14.8 g/dL 06/22/2018 5:36 AM [facility] HEMATOCRIT 35.3(L) 35.5 - 44.0 % 06/22/2018 5:36 AM [facility] MCV 98.6 82.0 - 99.0 fL 06/22/2018 5:36 AM [facility] MCH 33.5(H) 27.2 - 32.6 pg 06/22/2018 5:36 AM [facility] MCHC 34.0 31.5 - 35.5 g/dL 06/22/2018 5:36 AM [facility] RDW 11.9 11.5 - 14.5 % 06/22/2018 5:36 AM [facility] RDW-STDEV 43.8 37.1 - 48.7 fL 06/22/2018 5:36 AM [facility] PLATELETS 178 140 - 350 K/uL 06/22/2018 5:36 AM [facility] MPV 11.1 9.3 - 12.4 fL 06/22/2018 5:36 AM [facility] NEUTROPHILS 62 % 06/22/2018 5:36 AM SENIOR CLINICAL CONSULTANT [employer] [facility] - [facility] LYMPHOCYTES 25 % 06/22/2018 5:36 AM SENIOR CLINICAL CONSULTANT [employer] [facility] MONOCYTES 9 % 06/22/2018 5:36 AM SENIOR CLINICAL CONSULTANT [employer] [facility] EOSINOPHILS 3 % 06/22/2018 5:36 AM SENIOR CLINICAL CONSULTANT [employer] [facility] BASOPHILS 0 % 06/22/2018 5:36 AM SENIOR CLINICAL CONSULTANT [employer] [facility] IMMATURE GRANULOCYTES 1 % 06/22/2018 5:36 AM [facility] - [facility] Comment:IG (Immature Granulo cyte) count includes Metamyelocytes, Myelocytes, and Promyelocytes NEUTROPHIL ABSOLUTE 4.37 1.90 - 7.00 K/uL 06/22/2018 5:36 AM [facility] [employer] [facility] LYMPHOCYTE ABSOLUTE 1.77 0.70 - 4.50 K/uL 06/22/2018 5:36 AM [facility] [employer] [facility] - . [place] MONOCYTE ABSOLUTE 0.65 0.10 - 1.30 K/uL 06/22/2018 5:36 AM [facility] [employer] SERVICES - [facility] EOSINOPHIL ABSOLUTE 0.22 0.00 - 0.70 K/uL 06/22/2018 5:36 AM [facility] [employer] [facility] BASOPHILS ABSOLUTE 0.02 0.00 - 0.20 K/uL 06/22/2018 5:36 AM [facility] [employer] [facility] IMMATURE GRANULOCYTES ABSOLUTE 0.04(H) 0.00 - 0.03 K/uL 06/22/2018 5:36 AM [facility] [employer] [facility] Blood Collection / Unknown 06/22/2018 5:10 AM SENIOR CLINICAL CONSULTANT 06/22/2018 5:20 AM SENIOR CLINICAL CONSULTANT Soto Porras MD HEMATOLOGY ORDERAB LES [facility] [employer] [facility]# [id number] [address] [place] [id number] * (ABNORMAL) COMPREHENSIVE METABOLIC PANEL (06/22/2018 5:10 AM SENIOR CLINICAL CONSULTANT) SODIUM 139 136 - 145 mmol/L 06/22/2018 5:54 AM [facility] [employer] SERVICES [facility]. [place] POTASSIUM 3.8 3.5 - 5.0 mmol/L 06/22/2018 5:54 AM [facility] [employer] [facility]. [facility] CHLORIDE 102 98 - 107 mmol/L 06/22/2018 5:54 AM [facility] [employer] SERVICES - . [facility] CO2 25 22 - 29 mmol/L 06/22/2018 5:54 AM [facility] [employer] [facility] . [facility] CALCIUM 8.9 8.6 - 10.2 mg/dL 06/22/2018 5:54 AM [facility] BUN 11 6 - 20 mg/dL 06/22/2018 5:54 AM [facility] CREATININE 0.71 0.51 - 0.95 mg/dL 06/22/2018 5:54 AM [facility] GLUCOSE 84 74 - 99 mg/dL 06/22/2018 5:54 AM [facility] TOTAL PROTEIN 6.3(L) 6.7 - 8.6 g/dL 06/22/2018 5:54 AM [facility] ALBUMIN 3.5 3.5 - 5.2 g/dL 06/22/2018 5:54 AM [facility] BILIRUBIN TOTAL 0.6 0.3 - 1.2 mg/dL 06/22/2018 5:54 AM [facility] ALKALINE PHOSPHATASE 90 35 - 104 U/L 06/22/2018 5:54 AM [facility] AST 31 <33 U/L 06/22/2018 5:54 AM [facility] ALT 28 <34 U/L 06/22/2018 5:54 AM [facility] [place] GFR >60 >=60 mL/min/1.7 3 sq meter 06/22/2018 5:54 AM [facility] [place] Comment: eGFR has not been validated [...] GFR, >60 >=60 mL/min/1.7 3 sq meter 06/22/2018 5:54 AM [facility] . [place] ANION GAP 12 8 - 16 mmol/L 06/22/2018 5:54 AM [facility] - [facility] Blood Collection / Unknown 06/22/2018 5:10 AM SENIOR CLINICAL CONSULTANT 06/22/2018 5:20 AM SENIOR CLINICAL CONSULTANT Narrative [facility] - 06/22/2018 5:54 AM SENIOR CLINICAL CONSULTANT Samples containing indocyanine green cause interferences on Total and/or Direct Bilirubin and must not be measured. Soto Porras MD CHEMISTRY ORDERABL ES Performing Organization Address [facility] Number [facility] [employer] [facility]# [id number] [address] [place] [address] * IR VENOUS ACCESS (06/19/2018 10:00 AM SENIOR CLINICAL CONSULTANT) Narrative 06/19/2018 10:01 AM SENIOR CLINICAL CONSULTANT Order information only. ??Exam was auto-finalized. ?? Soto Porras MD IR ORDERABLES * C-REACTIVE PROTEIN (06/18/2018 11:14 AM SENIOR CLINICAL CONSULTANT) CRP 2.0 <5.0 mg/L 06/18/2018 7:38 PM [facility] [employer] [facility] Blood Venipuncture / Unknown 06/18/2018 11:14 AM SENIOR CLINICAL CONSULTANT 06/18/2018 11:26 AM SENIOR CLINICAL CONSULTANT Soto Porras MD CHEMISTRY ORDERABL ES Performing Organization Address [facility] Phone Number [facility] [employer] [facility]# [id number] [facility] [place] [address] * (ABNORMAL) COMPREHENSIVE METABOLIC PANEL (06/18/2018 11:14 AM SENIOR CLINICAL CONSULTANT) SODIUM 138 136 - 145 mmol/L 06/18/2018 12:07 PM [facility] POTASSIUM 4.0 3.5 - 5.0 mmol/L 06/18/2018 12:07 PM SENIOR CLINICAL CONSULTANT [facility] LABORATORY SERVICES [facility] CHLORIDE 102 98 - 107 mmol/L 06/18/2018 12:07 PM [facility] [employer] LABORATORY SERVICES [facility] CO2 25 22 - 29 mmol/L 06/18/2018 12:07 PM [facility] CALCIUM 9.4 8.6 - 10.2 mg/dL 06/18/2018 12:07 PM [facility] BUN 9 6 - 20 mg/dL 06/18/2018 12:07 PM SENIOR CLINICAL CONSULTANT [facility] [facility] - [facility] CREATININE 0.69 0.51 - 0.95 mg/dL 06/18/2018 12:07 PM [facility] GLUCOSE 157(H) 74 - 99 mg/dL 06/18/2018 12:07 PM [facility] TOTAL PROTEIN 7.4 6.7 - 8.6 g/dL 06/18/2018 12:07 PM [facility] ALBUMIN 4.1 3.5 - 5.2 g/dL 06/18/2018 12:07 PM [facility] BILIRUBIN TOTAL 0.3 0.3 - 1.2 mg/dL 06/18/2018 12:07 PM [facility] ALKALINE PHOSPHATASE 84 35 - 104 U/L 06/18/2018 12:07 PM [facility] AST 11 <33 U/L 06/18/2018 12:07 PM [facility] ALT 6 <34 U/L 06/18/2018 12:07 PM [facility] GFR >60 >=60 mL/min/1.7 3 sq meter 06/18/2018 12:07 PM [facility] - . [place] Comment: eGFR has not been validated [...] GFR, >60 >=60 mL/min/1.7 3 sq meter 06/18/2018 12:07 PM [facility] - . [place] ANION GAP 11 8 - 16 mmol/L 06/18/2018 12:07 PM [facility] [employer] [facility] Blood Venipuncture / Unknown 06/18/2018 11:14 AM SENIOR CLINICAL CONSULTANT 06/18/2018 11:26 AM [facility] [employer] [facility] - 06/18/2018 12:07 PM SENIOR CLINICAL CONSULTANT Samples containing indocyanine green cause interferences on Total and/or Direct Bilirubin and must not be measured. Soto Porras MD CHEMISTRY ORDERABL ES [facility] [employer] CLIA# [id number] 5 [facility] [place] [address] * (ABNORMAL) CBC WITH DIFFERENTIAL (06/18/2018 11:14 AM SENIOR CLINICAL CONSULTANT) WBC 9.2 4.0 - 9.8 K/uL 06/18/2018 11:36 AM [facility] [employer] [facility] RBC 3.95 3.90 - 4.90 M/uL 06/18/2018 11:36 AM [facility] [employer] [facility] HEMOGLOBIN 13.3 11.8 - 14.8 g/dL 06/18/2018 11:36 AM [facility] quickhuddle [facility] [place] HEMATOCRIT 39.1 35.5 - 44.0 % 06/18/2018 11:36 AM [facility] quickhuddle [facility] MCV 99.0 82.0 - 99.0 fL 06/18/2018 11:36 AM [facility] quickhuddle [facility] MCH 33.7(H) 27.2 - 32.6 pg 06/18/2018 11:36 AM [facility] quick[employer]uddle [facility] MCHC 34.0 31.5 - 35.5 g/dL 06/18/2018 11:36 AM [facility] SocialDefender quickhuddle [facility] RDW 12.2 11.5 - 14.5 % 06/18/2018 11:36 AM [facility] quick[employer]uddle [facility] RDW-STDEV 44.7 37.1 - 48.7 fL 06/18/2018 11:36 AM [facility] quick[employer]uddle [facility] PLATELETS 226 140 - 350 K/uL 06/18/2018 11:36 AM [facility] quick[employer]uddle [facility] MPV 10.8 9.3 - 12.4 fL 06/18/2018 11:36 AM [facility] quickhuddle [facility] [place] NEUTROPHILS 91 % 06/18/2018 11:36 AM [facility] [place] LYMPHOCYTES 8 % 06/18/2018 11:36 AM [facility] quick[facility]uddle [facility] [place] MONOCYTES 1 % 06/18/2018 11:36 AM [facility] quick[employer]uddle [facility] [place] EOSINOPHILS 0 % 06/18/2018 11:36 AM [facility] [place] BASOPHILS 0 % 06/18/2018 11:36 AM [facility] quickhuddle [facility] [place] IMMATURE GRANULOCYTES 1 % 06/18/2018 11:36 AM [facility] quickhuddle [facility] [place] Comment:IG (Immature Granulo cyte) count includes Metamyelocytes, Myelocytes, and Promyelocytes NEUTROPHIL ABSOLUTE 8.35(H) 1.90 - 7.00 K/uL 06/18/2018 11:36 AM [facility] quickhuddle [facility] [place] LYMPHOCYTE ABSOLUTE 0.71 0.70 - 4.50 K/uL 06/18/2018 11:36 AM [facility] quickhuddle [facility] [place] MONOCYTE ABSOLUTE 0.09(L) 0.10 - 1.30 K/uL 06/18/2018 11:36 AM [facility] quickhuddle [facility] [place] EOSINOPHIL ABSOLUTE 0.00 0.00 - 0.70 K/uL 06/18/2018 11:36 AM [facility] quickhuddle [facility] [place] BASOPHILS ABSOLUTE 0.01 0.00 - 0.20 K/uL 06/18/2018 11:36 AM [facility] quickhuddle [facility] IMMATURE GRANULOCYTES ABSOLUTE 0.06(H) 0.00 - 0.03 K/uL 06/18/2018 11:36 AM [facility] quickhuddle [facility] [place] Blood Venipuncture / Unknown 06/18/2018 11:14 AM SENIOR CLINICAL CONSULTANT 06/18/2018 11:26 AM SENIOR CLINICAL CONSULTANT Soto Porras MD HEMATOLOGY ORDERAB LES [facility] quickhuddle [facility] CLIA# [id number] [address] [place] [address] * AFB CULTURE WITH STAIN (06/17/2018 2:49 PM SENIOR CLINICAL CONSULTANT) CULTURE No acid fast bacilli isolated. 08/03/2018 9:44 AM SENIOR CLINICAL CONSULTANT [facility] AFB STAIN No acid fast bacilli observed 08/03/2018 9:44 AM [facility] Tissue (Face) Collection / Unknown 06/17/2018 2:49 PM SENIOR CLINICAL CONSULTANT 06/17/2018 4:52 PM SENIOR CLINICAL CONSULTANT Narrative [facility] - 08/03/2018 9:44 AM SENIOR CLINICAL CONSULTANT Culture is held for a minimum of 6 weeks. Dylon Fung MD MICROBIOLOGY - [facility] AL ORDERABLES [facility]# [id number] [address] [place] [address] * (ABNORMAL) ANAEROBIC/AEROBIC CULTURE W GRAM STAIN (06/17/2018 2:49 PM SENIOR CLINICAL CONSULTANT) CULTURE STAPHYLOCOCCUS AUREUS(A) SUMA MCG/ML 06/22/2018 7:48 AM [facility] CULTURE Scant growth Normal skin senia SUMA MCG/ML 06/22/2018 7:48 AM [facility] CULTURE 1+ or few Cutibacterium acnes(A) 06/22/2018 7:48 AM [facility] Comment:Anaerobe therapy rec ommendation:?? metronidazole.?? Alternatively:?? ampicillin/sulbactam or clindamycin. GRAM STAIN No organisms observed 06/22/2018 7:48 AM [facility] GRAM STAIN 1+ (Rare or Occasional) WBC 06/22/2018 7:48 AM [facility] quickhuddle [facility] Tissue (Face) Collection / Unknown 06/17/2018 2:49 PM SENIOR CLINICAL CONSULTANT 06/17/2018 4:52 PM SENIOR CLINICAL CONSULTANT Narrative Organism Antibiotic Method Susceptibility Staphylococcus aureus CLINDAMYCIN SUMA MCG/ML 0.25 mcg/mL: Resistant Staphylococcus aureus OXACILLIN (Nafcillin) SUMA MCG/ML 0.5 mcg/mL: Susceptible Comment:Oxacillin guajardo sceptible S.aureus (MSSA) is predictably susceptible to cefazolin and ceftriaxone. Staphylococcus aureus TRIMETHOPRIM/ SULFAMETHOXAZOLE SUMA MCG/ML <=10 mcg/mL: Susceptible Staphylococcus aureus VANCOMYCIN SUMA MCG/ML <=0.5 mcg/mL: Susceptible Staphylococcus aureus RIFAMPIN SUMA MCG/ML <=0.5 mcg/mL: Susceptible Comment:Rifampin leoncio uld NOT be used alone for antimicrobial therapy. Staphylococcus aureus CLINDAMYCIN (INDUCIBLE) SUMA MCG/ ML POSITIVE Comment:This isolate is presumed to be clindamycin resistant based on detection of inducible clindamycin resistance, but may still lead to clinical cure in less severe patients. Staphylococcus aureus DOXYCYCLINE SUMA MCG/ML <=0.5 mcg/mL: Susceptible Dylon Fung MD MICROBIOLOGY - [facility] AL ORDERABLES [facility]# [id number] [address] [place] [address] * (ABNORMAL) ANAEROBIC/AEROBIC CULTURE W GRAM STAIN (06/17/2018 2:43 PM SENIOR CLINICAL CONSULTANT) CULTURE STAPHYLOCOCCUS AUREUS(A) SUMA MCG/ML 06/23/2018 8:17 AM [facility] CULTURE STAPHYLOCOCCUS EPIDERMIDIS(A) SUMA MCG/ML 06/23/2018 8:17 AM [facility] GRAM STAIN Gram stain not performed; Quantity not sufficient 06/23/2018 8:17 AM [facility] Comment:Cannot preform gram stain on Device; Gram Stain credited. Hardware/Foreign Body/Implant (Other, specify) Collection / Unknown 06/17/2018 2:43 PM SENIOR CLINICAL CONSULTANT 06/17/2018 4:52 PM SENIOR CLINICAL CONSULTANT Comment:RUN AF[employer] WTH FUNGUS S TAIN IF POSSIBLE - WOULD NOT ALLOW THIS TEST TO BE SELECTED [facility] - 06/23/2018 8:17 AM SENIOR CLINICAL CONSULTANT Unable to preform AFB Culture and Fungus Stain from Hardware/Devices Organism Antibiotic Method Susceptibility Staphylococcus aureus CLINDAMYCIN SUMA MCG/ML 0.25 mcg/mL: Resistant Staphylococcus aureus OXACILLIN (Nafcillin) SUMA MCG/ML 0.5 mcg/mL: Susceptible Comment:Oxacillin guajardo sceptible S.aureus (MSSA) is predictably susceptible to cefazolin and ceftriaxone. Staphylococcus aureus TRIMETHOPRIM/ SULFAMETHOXAZOLE SUMA MCG/ML <=10 mcg/mL: Susceptible Staphylococcus aureus VANCOMYCIN SUMA MCG/ML 1 mcg/mL: Susceptible Staphylococcus aureus RIFAMPIN SUMA MCG/ML <=0.5 mcg/mL: Susceptible Comment:Rifampin leoncio uld NOT be used alone for antimicrobial therapy. Staphylococcus aureus CLINDAMYCIN (INDUCIBLE) SUMA MCG/ ML POSITIVE Comment:This isolate is presumed to be clindamycin resistant based on detection of inducible clindamycin resistance, but may still lead to clinical cure in less severe patients. Staphylococcus aureus DOXYCYCLINE SUMA MCG/ML <=0.5 mcg/mL: Susceptible Dylon Fung MD MICROBIOLOGY - GENER AL ORDERABLES Performing Organization Address City/[facility]/ZIP Co de Phone Number [facility] quickhuddle [facility] [id number] [address] [place] [address] * FUNGUS CULTURE, OTHER (06/17/2018 2:17 PM SENIOR CLINICAL CONSULTANT) CULTURE No fungus isolated. 07/15/2018 8:30 AM SENIOR CLINICAL CONSULTANT [facility] quickhuddle [facility] Lesion/Drainage Fluid (Ear, left) Collection / Unknown 06/17/2018 2:17 PM SENIOR CLINICAL CONSULTANT 06/17/2018 2:51 PM SENIOR CLINICAL CONSULTANT Narrative [facility] quickhuddle [facility] - 07/15/2018 8:30 AM SENIOR CLINICAL CONSULTANT Culture is held for a minimum of 4 weeks. Dylon Fung MD MICROBIOLOGY - GENER AL ORDERABLES Performing Organization Address City/[facility]/ZIP Co de Phone Number [facility] quickhuddle [facility] CLIA# [id number] [address] [place] [address] * AFB CULTURE WITH STAIN (06/17/2018 2:16 PM SENIOR CLINICAL CONSULTANT) CULTURE No acid fast bacilli isolated. 08/03/2018 9:44 AM [facility] AFB STAIN No acid fast bacilli observed 08/03/2018 9:44 AM [facility] Lesion/Drainage Fluid (Ear, left) Collection / Unknown 06/17/2018 2:16 PM SENIOR CLINICAL CONSULTANT 06/17/2018 2:51 PM SENIOR CLINICAL CONSULTANT Narrative [facility] - 08/03/2018 9:44 AM SENIOR CLINICAL CONSULTANT Culture is held for a minimum of 6 weeks. Dylon Fung MD MICROBIOLOGY - [facility] AL ORDERABLES [facility] [id number] [address] [facility] [place] [address] * (ABNORMAL) ANAEROBIC/AEROBIC CULTURE W GRAM STAIN (06/17/2018 2:15 PM SENIOR CLINICAL CONSULTANT) CULTURE STAPHYLOCOCCUS AUREUS(A) SUMA MCG/ML 06/22/2018 2:34 PM [facility] CULTURE 3 to 4+ or numerous Normal skin senia 06/22/2018 2:34 PM [facility] CULTURE PREVOTELLA BIVIA(A) SUMA MCG/ML 06/22/2018 2:34 PM [facility] Comment:Anaerobe therapy rec ommendation:?? metronidazole.?? Alternatively:?? ampicillin/sulbactam or clindamycin. GRAM STAIN No organisms observed 06/22/2018 2:34 PM [facility] GRAM STAIN No WBC 06/22/2018 2:34 PM [facility] Lesion/Drainage Fluid (Ear, left) Collection / Unknown 06/17/2018 2:15 PM SENIOR CLINICAL CONSULTANT 06/17/2018 2:51 PM SENIOR CLINICAL CONSULTANT Narrative Organism Antibiotic Method Susceptibility Staphylococcus aureus CLINDAMYCIN SUMA MCG/ML 0.25 mcg/mL: Resistant Staphylococcus aureus OXACILLIN (Nafcillin) SUMA MCG/ML 0.5 mcg/mL: Susceptible Comment:Oxacillin guajardo sceptible S.aureus (MSSA) is predictably susceptible to cefazolin and ceftriaxone. Staphylococcus aureus TRIMETHOPRIM/ SULFAMETHOXAZOLE SUMA MCG/ML <=10 mcg/mL: Susceptible Staphylococcus aureus VANCOMYCIN SUMA MCG/ML <=0.5 mcg/mL: Susceptible Staphylococcus aureus RIFAMPIN SUMA MCG/ML <=0.5 mcg/mL: Susceptible Comment:Rifampin leoncio uld NOT be used alone for antimicrobial therapy. Staphylococcus aureus CLINDAMYCIN (INDUCIBLE) SUMA MCG/ ML POSITIVE Comment:This isolate is presumed to be clindamycin resistant based on detection of inducible clindamycin resistance, but may still lead to clinical cure in less severe patients. Staphylococcus aureus DOXYCYCLINE SUMA MCG/ML <=0.5 mcg/mL: Susceptible Dylon Fung MD MICROBIOLOGY - GENER AL ORDERABLES Performing Organization Address [facility]/State/ZIP Co de Phone Number [facility]# [id number] [address] [place] [address] * PATHOLOGY (06/17/2018 2:09 PM SENIOR CLINICAL CONSULTANT) CASE REPORT Surgical Pathology Report ? Case: [id number] ? Authorizing Provider: ??Dylon Fung MD ?Collected: ? 06/17/2018 02:09 PM ? Ordering Location: ? [facility] ?Received: ?06/17/2018 02:57 PM ? Operating Room ? Pathologist: ? Melinda Gomez MD ? Specimen: ?Ear, left, Left external auditory canal ? 06/21/2018 1:47 PM [facility] quickhuddle [facility] FINAL DIAGNOSIS Skin, left external auditory canal, excisional biopsy: - Pedunculated skin with marked acute and chronic inflammation, consistent with polypoid granulation tissue. 06/21/2018 1:47 PM [facility] IMEN DESCRIPTION Left external auditory canal. 06/21/2018 1:47 PM [facility] OPERATIVE PROCEDURE Oromaxillofacial device removal left, left TMJ hardware removal, myringoplasty, temporomandibular joint prosthetic removal, cyst lesion mass excision-excision left ear canal lesion. 06/21/2018 1:47 PM [facility] CLINICAL DIAGNOSIS Left ear mass. 06/21/2018 1:47 PM [facility] CLINICAL INFORMATION 06/21/2018 1:47 PM [facility] GROSS DESCRIPTION Received in one container labeled Kayla Avila, left external auditory canal are two pieces of red to pink-griggs tissue measuring 0.4 and 0.7 cm in greatest dimension. The larger piece is bisected. The tissue is entirely submitted in cassette A1. TOSHIA/dinorah 06/21/2018 1:47 PM [facility] MICROSCOPIC DESCRIPTION Received is one slide labeled [id number] and Kayla Avila. The specimen consists of a pedunculated structure lined by mild hyperkeratosis and an acanthotic epidermis with hypergranulosis. There is no epithelial atypia. Throughout the stroma, there is marked acute and chronic inflammation and borderline abscess formation. There are interspersed dilated vessels lined by flattened endothelium. A cystic structure is not seen. No polarizable foreign material is identified. The histologic features are compatible with polypoid granulation tissue. 06/21/2018 1:47 PM SENIOR CLINICAL CONSULTANT [facility] COMMENT Special stain and/or immunohistochemical results are interpreted with controls that demonstrate appropriate staining reactions. Note on use of immunocytochemistry reagents: This test was developed and its performance characteristic determined by [facility], Department of Laboratory Medicine. It has [...] WF, WB and WH are performed by [address], [address]. All other case types are performed by [place] [address] [facility] [address]. 06/21/2018 1:47 PM SENIOR CLINICAL CONSULTANT [facility] Tissue (Ear, left) Collection / Unknown 06/17/2018 2:09 PM SENIOR CLINICAL CONSULTANT 06/17/2018 2:57 PM SENIOR CLINICAL CONSULTANT Dylon Fung MD PATHOLOGY/CYTOLOGY O RDERABLES [facility] CLIA# [id number] [address] [place] [address] [place] [address] * POC , URINE (06/17/2018 12:52 PM SENIOR CLINICAL CONSULTANT) HCG QUAL URINE Negative Negative 06/17/2018 3:25 PM SENIOR CLINICAL CONSULTANT [facility] Urine 06/17/2018 12:5 2 PM SENIOR CLINICAL CONSULTANT 06/17/2018 3:25 PM SENIOR CLINICAL CONSULTANT Dylon Fung MD POINT OF CARE TESTIN G Performing Organization Address [facility]/ZIP Co de Phone Number [facility] CLIA# [id number] [address] [place] [address] [place] [address] * EDUCATION ANESTHESIA (ADULT) - DARRELL (06/11/2018 3:18 PM SENIOR CLINICAL CONSULTANT) Education Name ANESTHESIA (ADULT) DARRELL EDUCATION INTERFACE Education URL [email or web address] DARRELL EDUCATION INTERFACE EDUCATION ACCESS CODE [id number] DARRELL EDUCATION INTERFACE EDUCATION ISSUE DATE Jun 11, 2018 DARRELL EDUCATION INTERFACE EDUCATION START DATE DARRELL EDUCATION INTERFACE EDUCATION COMPLETED DATE This program was not started and flagged as on: Jul 12, 2018 DARRELL EDUCATION INTERFACE EDUCATION EXPIRATION DATE Jul 11, 2018 DARRELL EDUCATION INTERFACE EDUCATION MESSAGE EVENT DARRELL EDUCATION INTERFACE 06/11/2018 3:18 PM SENIOR CLINICAL CONSULTANT Dylon Fung MD EXTERNAL EDUCATION O RDERABLES DARRELL EDUCATION INTERFACE documented in this encounter Visit Diagnoses Not on filedocumented in this encounter Administered Medications Inactive Administered Medications - up to 3 most recent administrations Medication Order MAR Action Action Date Dose Rate Site bacitracin (BACI-IM) 50,000 Units in sodium chloride 0.9 % irrigation 1,000 mL IRRIGATION INTRA-PROCEDURE PRN, Starting on Dhara 06/17/18 at 1425, Until Dhara 06/17/18 at 1625, Routine, Intra-op Given 06/17/2018 2:25 PM SENIOR CLINICAL CONSULTANT 300 mL Operative Site bacitracin-polymyxin B (POLYSPORIN) 500-10,000 unit/gram topical ointment INTRA-PROCEDURE PRN, Starting on Dhara 06/17/18 at 1500, Until Dhara 06/17/18 at 1625, Routine, Intra-op Given 06/17/2018 3:00 PM SENIOR CLINICAL CONSULTANT 0.9 Grams Face dexamethasone (MAXIDEX) 0.1 % ophthalmic suspension INTRA-PROCEDURE PRN, Starting on Thu06/17/18 at 1610, Until Dhara 06/17/18 at 1626, Routine, Intra-op Given 06/17/2018 4:10 PM SENIOR CLINICAL CONSULTANT 2 Drops Operative Site dextrose 5 % in water 250 mL flush bag 25 mL 25 mL, IV, SEE ADMIN INSTRUCTIONS, Starting on 06/19/18 at 0854, Until 06/23/18 at 1927, Routine EPINEPHrine (ADRENALIN) 1 mg/mL injection INTRA-PROCEDURE PRN, Starting on Dhara 06/17/18 at 1410, Until Dhara 06/17/18 at 1625, Routine, Intra-op Given 06/17/2018 2:10 PM SENIOR CLINICAL CONSULTANT 1 mg Operative Site ertapenem (INVanz) 1,000 mg in sodium chloride 0.9% 50 mL IVPB 1,000 mg, IV, EVERY 24 HOURS, First dose on 06/21/18 at 0900, Until Discontinued, Routine, Antibiotic Indication: Osteomyelitis / Septic Arthritis New Bag 06/23/2018 8:03 AM SENIOR CLINICAL CONSULTANT 1,000 mg 100 mL/hr New Bag 06/22/2018 10:47 AM SENIOR CLINICAL CONSULTANT 1,000 mg 100 mL/hr New Bag 06/21/2018 9:39 AM SENIOR CLINICAL CONSULTANT 1,000 mg 100 mL/hr gabapentin (NEURONTIN) capsule 600 mg 600 mg, Oral, TWO TIMES DAILY, First dose on Thu06/18/18 at 0000, Until Discontinued, Routine Given 06/23/2018 8:01 AM SENIOR CLINICAL CONSULTANT 600 mg Given 06/22/2018 8:23 PM SENIOR CLINICAL CONSULTANT 600 mg Given 06/22/2018 8:58 AM SENIOR CLINICAL CONSULTANT 600 mg heparin injection 5,000 Units 5,000 Units, subCUT, EVERY 8 HOURS, First dose on 06/19/18 at 1430, Until Discontinued, Routine heparin, porcine (pf) 10 unit/mL IV syringe 50-150 Units 50-150 Units, IV, EVERY 12 HOURS, First dose on 06/19/18 at 0900, Until Discontinued, Routine Given 06/22/2018 8:22 PM SENIOR CLINICAL CONSULTANT 50 Units Given 06/21/2018 9:38 PM SENIOR CLINICAL CONSULTANT 50 Units Given 06/21/2018 8:34 AM SENIOR CLINICAL CONSULTANT 50 Units heparin, porcine (pf) 10 unit/mL IV syringe 50-150 Units 50-150 Units, IV, SEE ADMIN INSTRUCTIONS, Starting on 06/19/18 at 0854, Until Thu06/23/18 at 1927, Routine Given 06/22/2018 5:10 AM SENIOR CLINICAL CONSULTANT 50 Units ibuprofen (ADVIL;MOTRIN) 100 mg/5 mL oral suspension 600 mg 600 mg, Oral, EVERY 6 HOURS PRN, Starting on Dhara 06/17/18 at 1551, Until Thu06/23/18 at 1927, Other (See Comment), For pain secondary to inflammation, Routine lactated Ringers solution IV, at 125 mL/hr, POST-PROCEDURE CONTINUOUS, Starting on Dhara 06/17/18 at 1245, Until Thu06/23/18 at 1927, Routine, PACU New Bag 06/17/2018 12:45 PM SENIOR CLINICAL CONSULTANT 125 mL/hr lamoTRIgine (LaMICtal) tablet 100 mg 100 mg, Oral, TWO TIMES DAILY, First dose on Thu06/18/18 at 0000, Until Discontinued, Routine Given 06/23/2018 8:01 AM SENIOR CLINICAL CONSULTANT 100 mg Given 06/22/2018 8:24 PM SENIOR CLINICAL CONSULTANT 100 mg Given 06/22/2018 9:02 AM SENIOR CLINICAL CONSULTANT 100 mg levETIRAcetam (KEPPRA) tablet 1,000 mg 1,000 mg, Oral, TWO TIMES DAILY, First dose on Thu06/18/18 at 0000, Until Discontinued, Routine Given 06/23/2018 8:01 AM SENIOR CLINICAL CONSULTANT 1,000 mg Given 06/22/2018 8:24 PM SENIOR CLINICAL CONSULTANT 1,000 mg Given 06/22/2018 9:02 AM SENIOR CLINICAL CONSULTANT 1,000 mg lidocaine-EPINEPHrine (XYLOCAINE-EPI) 1 %-1:100,000 injection INTRA-PROCEDURE PRN, Starting on Dhara 06/17/18 at 1411, Until Thu06/17/18 at 1625, Routine, Intra-op Given 06/17/2018 2:23 PM SENIOR CLINICAL CONSULTANT 2 mL Given 06/17/2018 2:11 PM SENIOR CLINICAL CONSULTANT 0.5 mL morphine 4 mg/mL injection 4 mg 4 mg, IV, EVERY 2 HOURS PRN, 6 doses, Starting on Dhara 06/17/18 at 1552, Until Thu06/23/18 at 1927, Pain (See admin instructions), Pain, Severe, Routine Given 06/18/2018 7:50 AM SENIOR CLINICAL CONSULTANT 4 mg Given 06/18/2018 1:35 AM SENIOR CLINICAL CONSULTANT 4 mg Given 06/17/2018 11:15 PM SENIOR CLINICAL CONSULTANT 4 mg naloxone (NARCAN) 0.4 mg/mL injection 0.1 mg 0.1 mg, IV, SEE ADMIN INSTRUCTIONS, Starting on Dhara 06/17/18 at 1549, Until Thu06/23/18 at 1927, Routine Neomycin-Bacitracin Zn-Polymyxin (NEOSPORIN) topical ointment 1 Packet Topical, TWO TIMES DAILY, First dose on 06/20/18 at 2100, Until Discontinued, Routine Given 06/23/2018 8:14 AM SENIOR CLINICAL CONSULTANT 1 Packet Face Given 06/22/2018 8:18 PM SENIOR CLINICAL CONSULTANT 1 Packet Ot her (Comment) Given 06/22/2018 9:00 AM SENIOR CLINICAL CONSULTANT 1 Packet Fa ce ofloxacin (OCUFLOX) 0.3 % ophthalmic solution 1 Drop 1 Drop, Left Ear, FOUR TIMES DAILY, First dose on Thu06/17/18 at 1300, Until Discontinued, Routine Given 06/23/2018 12:07 PM SENIOR CLINICAL CONSULTANT 1 Drop Given 06/23/2018 8:07 AM SENIOR CLINICAL CONSULTANT 1 Drop Given 06/22/2018 8:19 PM SENIOR CLINICAL CONSULTANT 1 Drop ofloxacin (OCUFLOX) 0.3 % ophthalmic solution INTRA-PROCEDURE PRN, Starting on Thu06/17/18 at 1624, Until Thu06/17/18 at 1625, Routine, Intra-op Given 06/17/2018 4:10 PM SENIOR CLINICAL CONSULTANT 2 Drops Opera tive Site ondansetron (ZOFRAN) 4 mg/2 mL injection 4 mg 4 mg, IV, EVERY 4 HOURS PRN, Starting on Thu06/18/18 at 1045, Until Thu06/23/18 at 1927, Nausea/Emesis, Routine Given 06/23/2018 8:07 AM SENIOR CLINICAL CONSULTANT 4 mg Given 06/22/2018 8:14 PM SENIOR CLINICAL CONSULTANT 4 mg Given 06/22/2018 8:08 AM SENIOR CLINICAL CONSULTANT 4 mg oxyCODONE (ROXICODONE) oral solution 7.5 mg 7.5 mg, Oral, EVERY 4 HOURS PRN, Starting on Thu06/17/18 at 1551, Until Thu06/23/18 at 1927, Pain (See admin instructions), Routine Given 06/23/2018 4:58 PM SENIOR CLINICAL CONSULTANT 7.5 mg Given 06/23/2018 1:05 PM SENIOR CLINICAL CONSULTANT 7.5 mg Given 06/23/2018 9:08 AM SENIOR CLINICAL CONSULTANT 7.5 mg pantoprazole (PROTONIX) tablet 40 mg 40 mg, Oral, DAILY BEFORE BREAKFAST, First dose on Thu06/18/18 at 0600, Until Discontinued, Routine Given 06/23/2018 8:10 AM SENIOR CLINICAL CONSULTANT 40 mg Given 06/21/2018 5:09 AM SENIOR CLINICAL CONSULTANT 40 mg Given 06/20/2018 6:39 AM SENIOR CLINICAL CONSULTANT 40 mg prochlorperazine maleate (COMPAZINE) tablet 10 mg 10 mg, Oral, EVERY 6 HOURS PRN, Starting on Thu06/17/18 at 1554, Until Thu06/23/18 at 1927, Nausea/Emesis, Routine Given 06/21/2018 10:56 AM SENIOR CLINICAL CONSULTANT 10 mg sodium chloride 0.9 % 250 mL flush bag 25 mL 25 mL, IV, SEE ADMIN INSTRUCTIONS, Starting on 06/19/18 at 0854, Until Thu06/23/18 at 1927, Routine New Bag 06/21/2018 3:19 PM SENIOR CLINICAL CONSULTANT 25 mL Rate Change 06/20/2018 10:03 PM SENIOR CLINICAL CONSULTANT 20 mL/hr Bag Switched 06/20/2018 10:03 PM SENIOR CLINICAL CONSULTANT 25 mL 10 mL/hr sodium chloride 0.9 % irrigation solution INTRA-PROCEDURE PRN, Starting on Dhara 06/17/18 at 1427, Until Dhara 06/17/18 at 1625, Routine, Intra-op Given 06/17/2018 2:27 PM SENIOR CLINICAL CONSULTANT 1,000 mL Opera tive Site sodium chloride flush injection 10-30 mL 10-30 mL, IV, EVERY 12 HOURS, First dose on 06/19/18 at 0900, Until Discontinued, Routine Given 06/22/2018 8:25 PM SENIOR CLINICAL CONSULTANT 10 mL Given 06/21/2018 9:39 PM SENIOR CLINICAL CONSULTANT 10 mL Given 06/21/2018 9:00 AM SENIOR CLINICAL CONSULTANT 30 mL sodium chloride flush injection 10-30 mL 10-30 mL, IV, SEE ADMIN INSTRUCTIONS, Starting on 06/19/18 at 0854, Until Thu06/23/18 at 1927, Routine traZODone (DESYREL) tablet 100 mg 100 mg, Oral, DAILY AT BEDTIME, First dose on Dhara 06/17/18 at 2115, Until Discontinued, Routine Given 06/22/2018 8:25 PM SENIOR CLINICAL CONSULTANT 100 mg Given 06/21/2018 9:39 PM SENIOR CLINICAL CONSULTANT 100 mg Given 06/20/2018 9:52 PM SENIOR CLINICAL CONSULTANT 100 mg documented in this encounter Active and Recently Administered Medications Times are shown in SENIOR CLINICAL CONSULTANT. Scheduled Medication Order 06/21/2018 06/22/2018 06/23/2018 dexamethasone (MAXIDEX) 0.1 % ophthalmic suspension 1 Drop 1 Drop, Left Ear, ONE TIME ONLY, 1 dose, On Dhara 06/17/18 at 1430, Routine dextrose 5 % in water 250 mL flush bag 25 mL 25 mL, IV, SEE ADMIN INSTRUCTIONS, Starting on 06/19/18 at 0854, Until Thu06/23/18 at 1927, Routine ertapenem (INVanz) 1,000 mg in sodium chloride 0.9% 50 mL IVPB 1,000 mg, IV, EVERY 24 HOURS, First dose on Thu06/21/18 at 0900, Until Discontinued, Routine, Antibiotic Indication: Osteomyelitis / Septic Arthritis 0939 (New Bag - Provider: Shannon Avila RN)1009 (Stopped - Provider: Shannon Avila RN) 1047 (New Bag - Provider: Soledad Muñiz, CHIN)1117 (Stopped - Provider: Soledad Muñiz RN) 0803 (New Bag - Provider: Shasta Linton, CHIN)0833 (Stopped - Provider: Shasta Linton, RN) flu vaccine quadrivalent 2017- (6 mo+)(PF) (FLULAVAL/FLUARIX QUAD) 60 mcg/0.5 mL syringe 60 mcg 60 mcg (0.5 mL), IM, ONE TIME ONLY, 1 dose, On Thu06/21/18 at 1900, Routine 0800 (Refused - Provider: Soledad Muñiz RN) flu vaccine quadrivalent (6 mo+)(PF) (FLULAVAL/FLUARIX QUAD) 60 mcg/0.5 mL syringe 60 mcg 60 mcg (0.5 mL), IM, ONE TIME ONLY, 1 dose, On Thu06/22/18 at 1330, Routine 1330 (Refused - Provider: Soledad Muñiz RN) gabapentin (NEURONTIN) capsule 600 mg 600 mg, Oral, TWO TIMES DAILY, First dose on Thu06/18/18 at 0000, Until Discontinued, Routine 0824 (Given - Provider: Shannon Avila RN)2137 (Given - Provider: Demetris Rosenbaum RN) 0858 (Given - Provider: Soledad Muñiz RN)2023 (Given - Provider: Demetris Rosenbaum RN) 0801 (Given - Provider: Shasta Linton, CHIN) heparin injection 5,000 Units 5,000 Units, subCUT, EVERY 8 HOURS, First dose on Thu06/19/18 at 1430, Until Discontinued, Routine 0500 (Refused - Provider: Demetris Rosenbaum RN)1300 (Refused - Provider: Shannon Avila RN)2100 (Refused - Provider: Demetris Rosenbaum RN) 0500 (Refused - Provider: Elesha M Robi, RN)1300 (Refused - Provider: Soledad Muñiz RN)2100 (Refused - Provider: Demetris Rosenbaum RN) 0500 (Refused - Provider: Shasta Linton RN)1300 (Refused - Provider: Shasta Linton RN) heparin, porcine (pf) 10 unit/mL IV syringe 50-150 Units 50-150 Units, IV, EVERY 12 HOURS, First dose on 06/19/18 at 0900, Until Discontinued, Routine 0834 (Given - Provider: Shannon Avila RN)2137 (Given - Provider: Demetris Rosenbaum RN) 09 (Not Given - Provider: Soledad Muñiz RN - Reason: Clarify-Other (Comment) - Comment: given at 0510)2021 (Given - Provider: Demetris Rosenbaum RN) 09 (Not Given - Provider: Shasta Linton RN - Reason: Route not available) heparin, porcine (pf) 10 unit/mL IV syringe 50-150 Units 50-150 Units, IV, SEE ADMIN INSTRUCTIONS, Starting on 06/19/18 at 0854, Until 06/23/18 at 1927, Routine 0510 (Given - Provider: Demetris Rosenbaum RN) lamoTRIgine (LaMICtal) tablet 100 mg 100 mg, Oral, TWO TIMES DAILY, First dose on Thu06/18/18 at 0000, Until Discontinued, Routine 0824 (Given - Provider: Shannon Avila RN)2143 (Given - Provider: Demetris Rosenbaum RN) 09 (Given - Provider: Soledad Muñiz RN)2023 (Given - Provider: Demetris Rosenbaum RN) 08 (Given - Provider: Shasta Linton RN) levETIRAcetam (KEPPRA) tablet 1,000 mg 1,000 mg, Oral, TWO TIMES DAILY, First dose on Thu06/18/18 at 0000, Until Discontinued, Routine 0824 (Given - Provider: Shannon Avila RN) 004 (Given - Provider: Demetris Rosenbaum RN)09 (Given - Provider: Soledad Muñiz RN)2023 (Given - Provider: Demetris Rosenbaum RN) 08 (Given - Provider: Shasta Linton RN) naloxone (NARCAN) 0.4 mg/mL injection 0.1 mg 0.1 mg, IV, SEE ADMIN INSTRUCTIONS, Starting on Thu06/17/18 at 1549, Until Thu06/23/18 at 1927, Routine Neomycin-Bacitracin Zn-Polymyxin (NEOSPORIN) topical ointment 1 Packet Topical, TWO TIMES DAILY, First dose on Thu06/20/18 at 2100, Until Discontinued, Routine 0900 (Given - Provider: Shannon Avila RN)2144 (Given - Provider: Demetris Rosenbaum RN - Comment: as ordered) 0900 (Given - Provider: Soledad Muñiz, CHIN)2018 (Given - Provider: Demetris Rosenbaum RN - Comment: As ordered) 0814 (Given - Provider: Shasta Linton RN) ofloxacin (OCUFLOX) 0.3 % ophthalmic solution 1 Drop 1 Drop, Left Ear, FOUR TIMES DAILY, First dose on Thu06/17/18 at 1300, Until Discontinued, Routine 0831 (Given - Provider: Shannon Avila RN)1206 (Given - Provider: Shannon Avila RN)1709 (Given - Provider: Shannon Avila RN)2138 (Given - Provider: Demetris Rosenbaum RN) 0900 (Given - Provider: Soledad Muñiz RN)1235 (Given - Provider: Soledad Muñiz RN)1740 (Given - Provider: Soledad Muñiz RN)2019 (Given - Provider: Demetris Rosenbaum RN) 0807 (Given - Provider: Shasta Linton, CHIN)1207 (Given - Provider: Shasta Linton RN) pantoprazole (PROTONIX) tablet 40 mg 40 mg, Oral, DAILY BEFORE BREAKFAST, First dose on Thu06/18/18 at 0600, Until Discontinued, Routine 0509 (Given - Provider: Demetris Rosenbaum RN) 0900 (Not Given - Provider: Soledad Muñiz RN - Reason: Clarify-Other (Comment) - Comment: Cannot be crushed, paged) 0810 (Given - Provider: Shasta Linton, CHIN) piperacillin-tazobactam (ZOSYN) 3.375 gram in dextrose (iso-osmotic) 50 mL IVPB (COMPLETED) 3.375 Gram, IV, EVERY 6 HOURS, 12 doses, First dose on 06/18/18 at 1200, Last dose on Thu06/21/18 at 0600, Routine, Antibiotic Indication: Osteomyelitis / Septic Arthritis 0020 (Stopped - Provider: Demetris Rosenbaum RN)0517 (New Bag - Provider: Demetris Rosenbaum RN)0547 (Stopped - Provider: Raquel Farfan RN) sodium chloride 0.9 % 250 mL flush bag 25 mL 25 mL, IV, SEE ADMIN INSTRUCTIONS, Starting on 06/19/18 at 0854, Until Thu06/23/18 at 1927, Routine 1519 (New Bag - Provider: Shannon Avila RN) sodium chloride flush injection 10-30 mL 10-30 mL, IV, EVERY 12 HOURS, First dose on 06/19/18 at 0900, Until Discontinued, Routine 09 (Given - Provider: Shannon Avila RN)2138 (Given - Provider: Demetris Rosenbaum RN) 0900 (Canceled Entry - Provider: Soledad Muñiz RN - Comment: IV FL RUNNING KVO)2024 (Given - Provider: Demetris Rosenbaum RN) 0900 (Not Given - Provider: Shasta Linton RN - Reason: Route not available) sodium chloride flush injection 10-30 mL 10-30 mL, IV, SEE ADMIN INSTRUCTIONS, Starting on 06/19/18 at 0854, Until Thu06/23/18 at 1927, Routine tetanus and diphtheria toxoids and acellular pertussis vaccine PF (adult) (Tdap) (ADACEL) injection syringe 0.5 mL 0.5 mL, IM, ONE TIME ONLY, 1 dose, On Thu06/21/18 at 1900, Routine 0800 (Refused - Provider: Soledad Muñiz RN) tetanus and diphtheria toxoids and acellular pertussis vaccine PF (adult) (Tdap) (ADACEL) injection syringe 0.5 mL 0.5 mL, IM, ONE TIME ONLY, 1 dose, On Tu06/22/18 at 1330, Routine 1330 (Refused - Provider: Soledad Muñiz, CHIN) traZODone (DESYREL) tablet 100 mg 100 mg, Oral, DAILY AT BEDTIME, First dose on Dhara 06/17/18 at 2115, Until Discontinued, Routine 2138 (Given - Provider: Demetris Rosenbaum RN) 2024 (Given - Provider: Demetris Rosenbaum RN) Continuous Medication Order 06/21/2018 06/22/2018 06/23/2018 lactated Ringers solution IV, at 125 mL/hr, POST-PROCEDURE CONTINUOUS, Starting on Dhara 06/17/18 at 1245, Until Thu06/23/18 at 1927, Routine, PACU PRN Medication Order 06/21/2018 06/22/2018 06/23/2018 ibuprofen (ADVIL;MOTRIN) 100 mg/5 mL oral suspension 600 mg 600 mg, Oral, EVERY 6 HOURS PRN, Starting on Dhara 06/17/18 at 1551, Until Thu06/23/18 at 1927, Other (See Comment), For pain secondary to inflammation, Routine morphine 4 mg/mL injection 4 mg 4 mg, IV, EVERY 2 HOURS PRN, 6 doses, Starting on Dhara 06/17/18 at 1552, Until 06/23/18 at 1927, Pain (See admin instructions), Pain, Severe, Routine ondansetron (ZOFRAN) 4 mg/2 mL injection 4 mg 4 mg, IV, EVERY 4 HOURS PRN, Starting on 06/18/18 at 1045, Until Thu06/23/18 at 1927, Nausea/Emesis, Routine 0511 (Given - Provider: Demetris Rosenbaum RN)09 (Given - Provider: Shannon Avila RN)2026 (Given - Provider: Demetris Rosenbaum RN) 19 (Given - Provider: Demetris Rosenbaum RN)0808 (Given - Provider: Soledad Muñiz RN)2013 (Given - Provider: Demetris Rosenbaum RN) 0807 (Given - Provider: Shasta Linton RN) oxyCODONE (ROXICODONE) oral solution 7.5 mg 7.5 mg, Oral, EVERY 4 HOURS PRN, Starting on Dhara 06/17/18 at 1551, Until Thu06/23/18 at 1927, Pain (See admin instructions), Routine 0510 (Given - Provider: Demetris Rosenbaum RN)0909 (Given - Provider: Shannon Avila RN)151 (Given - Provider: Shannon Horn, RN)2139 (Given - Provider: Demetris Rosenbaum RN) 0042 (Given - Provider: Demetris Rosenbaum RN)0508 (Given - Provider: Demetris Rosenbaum RN)0900 (Given - Provider: Soledad Muñiz RN)1234 (Given - Provider: Soledad Muñiz RN)1613 (Given - Provider: Soledad Muñiz, RN)2019 (Given - Provider: Demetris Rosenbaum RN) 0022 (Given - Provider: Demetris Rosenbaum RN)0459 (Given - Provider: Demetris Rosenbaum RN)0908 (Given - Provider: Shasta Linton, CHIN)1305 (Given - Provider: Shasta Linton RN)1658 (Given - Provider: Shasta Linton RN) prochlorperazine maleate (COMPAZINE) tablet 10 mg 10 mg, Oral, EVERY 6 HOURS PRN, Starting on Dhara 06/17/18 at 1554, Until 06/23/18 at 1927, Nausea/Emesis, Routine 1056 (Given - Provider: Shannon Avila, CHIN) documented in this encounter Care Teams Pickle Processor Relationship Specialty Start Date End Date Sg Richards MD [address] [place] [address] PCP - General Internal Medicine 06/10/17 08/13/21 documented as of this encounter
--- OUTSIDE RECORDS SUMMARY | 2024-07-16 13:01 | XMS_ITS | Encounter Summary ---
Author Organization [facility] Address [address] [place] [address] Care Team Providers Care Carburetor Rebuilder Name Role Phone Sg Richards MD Primary Care Provider Reason for Referral * Outpatient Services (Routine) - Closed Specialty Diagnoses / Procedures Referred By Suman perdue Referred To Contact CT Scan Diagnoses Temporomandibular joint sounds on opening and/or closing the jaw Procedures CT SINUS FACIAL BONES WO CONTRAST CT SINUS FACIAL BONES W WO Dylon Colbert MD [address] [place] [id number] Referral ID Status Reason Start Date Expiration Date V isits Requested Visits Authorized [id number] Closed [facility] CTS 06/23/2017 07/19/2017 1 1 TEST ANALYST Reason for Visit * Outpatient Services (Routine) - Closed Specialty Diagnoses / Procedures Referred By Suman perdue Referred To Contact CT Scan Diagnoses Temporomandibular joint sounds on opening and/or closing the jaw Procedures CT SINUS FACIAL BONES WO CONTRAST CT SINUS FACIAL BONES W WO Dylon Colbert MD [address] [place] [id number] Referral ID Status Reason Start Date Expiration Date V isits Requested Visits Authorized [id number] Closed [facility] CTS 06/23/2017 07/19/2017 1 1 Encounter Details Date Type Department Care Team (Latest Contact Info) Description 06/24/2017 8:24 AM QA TEST ANALYST - 06/24/2017 11:59 PM [facility] Hospital Encounter [facility] [address] [place] [id number] Dylon Fung MD [address] [facility] [address] [address] Discharge Disposition: Home or Self Care Social History Tobacco Use Types Packs/Day Years Used Date Smoking Tobacco: Former Cigarettes Q uit: 07/09/2012 Smokeless Tobacco: Never Alcohol Use Standard Drinks/Week [...] by mouth 2 times daily . 06/23/2016 levETIRAcetam (KEPPRA) 1,000 mg tablet Take 2,000 [...] 150 mg by mouth 2 times daily. lacosamide (VIMPAT) 200 mg tablet Take 200 mg by mouth 2 times daily . 06/21/2018 eslicarbazepine (APTIOM) 800 mg Tablet Take 800 mg by mouth. 06/21 oxyCODONE-acetaminophen (PERCOCET) 5-325 mg Oral tablet Take 1 Tab by mouth every 4 hours as needed for Pain, Moderate. 30 Tab 0 11/03/2012 06/21/2018 HYDROcodone-acetaminophe n (NORCO) 5-325 mg Oral tablet Take 1 Tab by mouth every 4 hours as needed for Pain, Moderate. 30 Tab 0 11/03/2012 06/22/2018 amoxicillin-clavulanate (AUGMENTIN) 875-125 mg Oral tablet Take 1 Tab by mouth every 12 hours. 28 Tab 0 09/15/2012 06/21/2018 meclizine (ANTIVERT) 12.5 mg Oral tablet Take 25 mg by mouth every 6 hours. 06/21/2018 amitriptyline (ELAVIL) 10 mg Oral tablet Take 10 mg by mouth daily at bedtime. Takes six tablets every every evening for sleep 06/21/2018 piroxicam (FELDENE) 20 mg Oral capsule Take 20 mg by mouth daily. 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 DICTATION LOCATION: ??Location 1: ??[facility] Narrative 06/24/2017 4:57 PM QA TEST ANALYST EXAM : CT SINUS FACIAL BONES WITHOUT CONTRAST WITH REFORMATTED IMAGES DATE: 06/24/2017 8:41 AM INDICATION: Temporomandibular joint sounds on opening and/or closing the jaw TECHNIQUE: Multiple axial CT images were acquired. Coronal and sagittal reformats were created. FINDINGS: Comparison is made to prior exam performed on 11/20/2014. 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 Findings are similar to the prior exam. Condylar hardware is stable. Surgical fixation screws are stable within the zygoma. There is slightly less swelling of the soft tissues of the external auditory canal. Acute fracture or osseous abnormality is not seen. There is good aeration of the paranasal sinuses and mastoid air cells. Nasopharyngeal soft tissues are normal. Marine Engine Machinist Apprentice space muscles are normal. Small scattered lymph nodes in the neck and face are not enlarged. Procedure Note Lane Kothari MD - 06/24/2017 EXAM : CT SINUS FACIAL BONES WITHOUT CONTRAST WITH REFORMATTED IMAGES DATE: 06/24/2017 8:41 AM INDICATION: Temporomandibular joint sounds on opening and/or closing the jaw TECHNIQUE: Multiple axial CT images were acquired. Coronal and sagittal reformats were created. FINDINGS: Comparison is made to prior exam performed on 11/20/2014. 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 Findings are similar to the prior exam. Condylar hardware is stable. Surgical fixation screws are stable within the zygoma. There is slightly less swelling of the soft tissues of the external auditory canal. Acute fracture or osseous abnormality is not seen. There is good aeration of the paranasal sinuses and mastoid air cells. Nasopharyngeal soft tissues are normal. Marine Engine Machinist Apprentice space muscles are normal. Small scattered lymph nodes in the neck and face are not enlarged. 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 DICTATION LOCATION: Location 1: [facility] Dylon Fung MD CT ORDERABLES documented in this encounter Visit Diagnoses Diagnosis Temporomandibular joint sounds on opening and/or closing the jaw documented in this encounter Care Teams Carburetor Rebuilder Relationship Specialty Start Date End Date Sg Richards MD [address] [place] [id number] PCP - General Internal Medicine 06/10/17 08/13/21 documented as of this encounter
--- OUTSIDE RECORDS SUMMARY | 2024-07-16 13:01 | XMS_ITS | Encounter Summary ---
Author Organization [facility] Address [address] [place] [address] Care Team Providers Care Dredge Runner Name Role Phone Kyle Rodríguez MD Primary Care Provider [phone] Encounter Details Date Type Department Care Team (Late st Contact Info) Description 05/12/2014 Abstract [facility] [place] [address] [place] [id number] Lamine Latham MD [address] [place] [id number] Social History Tobacco Use Types Packs/Day Years Used Date Smoking Tobacco: Former Cigarettes Q uit: 07/09/2012 Alcohol Use Standard Drinks/Week Comments No 0 [...] on filedocumented in this encounter Care Teams Dredge Runner Relationship Specialty Start Date End Date Kyle Rodríguez MD [address] [place] [address] PCP - General Internal Medicine 09/10/12 06/09/17 documented as of this encounter
--- OUTSIDE RECORDS SUMMARY | 2024-07-16 13:01 | XMS_ITS | Encounter Summary ---
Author Organization [facility] Address [address] [place] [address] Care Team Providers Care Staff Field Engineer Name Role Phone Sg Richards MD Primary Care Provider [phone] Reason for Visit * Auth/Cert Specialty Diagnoses / Procedures Referred By Suman t Referred To Contact Procedures WA ARTHROPLASTY TMJ+PROSTHESIS STEROID INJECTION TEMPOROMANDIBULAR JOINT PROSTHETIC PLACEMENT Dylon Fung MD [address] [place] [id number] Referral ID Status Reason Start Date Expiration Date Visits Re quested Visits Authorized [id number] 09/14/2018 1 1 Encounter Details Date Type Department Care Team (Latest Contact Info) Description 11/03/2018 10:24 AM CDT - 11/04/2018 1:25 PM CDT Hospital Encounter [facility] [place] [address] [place] [id number] Dylon Fung MD [address] [place] [address] [phone] Discharge Disposition: Home or Self Care Social [...] Sign Reading Time Taken Comments Blood Pressure 99/58 11/04/2018 8:05 AM CDT Pulse 60 11/04/2018 8:05 AM CDT Temperature 37.2 ??C (98.9 ??F) 11/04/2018 8:05 AM CD T Respiratory Rate 20 11/04/2018 8:05 AM CDT Oxygen Saturation 96% 11/04/2018 8:05 AM CDT Inhaled Oxygen Concentration - - Weight 79.8 kg (176 lb) 11/03/2018 10:38 AM CDT Height 162.6 cm (5' 4 ) 11/03/2018 10:38 AM CDT Body Mass Index 30.21 11/03/2018 10:38 AM CDT documented in this encounter Discharge Summaries * Demetri Rowe DMD - 11/04/2018 10:08 AM CDT Patient: Kayla Lamavers / 43 y.o. 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 Procedures: Left TMJ joint replacement Treatments: . Significant Diagnostic Studies: . Hospital Course: The patient was taken to the operating room for the above mentioned procedure. Shetolerated anesthesia and procedure well. She is ambulating, voiding, and her pain is well controlled with PO pain medications. She is ready for discharge. Disposition: home. MEDICATIONS Prior to admission: Medications Prior to Admission Medication Sig Dispense Refill Last Dose ??? ondansetron (ZOFRAN) 4 mg Tablet Take 1 tablet by mouth every 8 hours as needed for nausea or vomiting. 10 Tablet 0 11/02/2018 at Unknown time ??? lamoTRIgine (LaMICtal) 100 mg tablet Take 350 mg by mouth 2 times daily . 11/02/2018 at Unknown time ??? calcium carbonate (TUMS ORAL) Take by mouth 1 time daily as needed. 11/01/2018 ??? levETIRAcetam (KEPPRA) 1,000 mg tablet Take 2,000 mg by mouth 2 times daily . 11/02/2018 at Unknown time ??? primidone (MYSOLINE) 50 mg tablet Take 50 mg by mouth daily at bedtime. 11/02/2018 at Unknown time ??? pantoprazole (PROTONIX) 40 mg Tablet, Delayed Release (E.C.) Take 40 mg by mouth daily. 11/02/2018 at Unknown time ??? traZODone (DESYREL) 100 mg Oral tablet Take 100 mg by mouth daily at bedtime. 11/02/2018 at Unknown time ??? gabapentin (NEURONTIN) 600 mg Oral tablet Take 1,200 mg by mouth 3 times daily. 11/02/2018 at Unknown time ??? buPROPion SR 12 hour (WELLBUTRIN-SR) 150 mg Oral tablet Take 150 mg by mouth 2 times daily. 11/02/2018 at Unknown time ??? [DISCONTINUED] HYDROcodone-acetaminophen (NORCO) 5-325 mg tablet Take 1 Tablet by mouth every 4hours as needed for Pain, Moderate. 11/02/2018 at Unknown time ??? [DISCONTINUED] amoxicillin-clavulanate (AUGMENTIN) 875-125 mg tablet Take 1 Tablet by mouth every 12 hours. 11/02/2018 at Unknown time Discharge medications and new prescriptions: Medication List START taking these medications clindamycin HCl 300 mg Capsule Commonly known as: CLEOCIN Take 1 Capsule (300 mg) by mouth 4 times daily for 10 days. Signed by: Demetri Rowe DMD Quantity: 40 Capsule Refills: 0 docusate sodium 100 mg capsule Commonly known as: COLACE Take 1 Capsule (100 mg) by mouth 2 times daily. Signed by: Demetri Rowe DMD Quantity: 20 Capsule Refills: 0 ibuprofen 800 mg tablet Commonly known as: MOTRIN Take 1 Tablet (800 mg) by mouth every 8 hours. Signed by: Demetri Rowe DMD Quantity: 30 Tablet Refills: 0 oxyCODONE-acetaminophen 7.5-325 mg Tablet Commonly known as: PERCOCET Take 1 Tablet by mouth every 4 hours as needed for Pain, Moderate. Max Daily Amount: 6 Tablets Signed by: Demetri Rowe DMD Quantity: 30 Tablet Refills: 0 CONTINUE taking these medications [...] Peres DDS Quantity: 10 Tablet Refills: 0 pantoprazole 40 mg Tablet, [...] needed. Refills: 0 STOP taking these medications amoxicillin-clavulanate 875-125 mg tablet Commonly known as: AUGMENTIN HYDROcodone-acetaminophen 5-325 mg tablet Commonly known as: NORCO Where to Get Your Medications These medications [id number] [address] AT [place] [address], [place] [address] ?? ibuprofen 800 mg tablet Information about where to get these medications is not yet available Ask your nurse or doctor about these medications ?? clindamycin HCl 300 mg Capsule ?? docusate sodium 100 mg capsule ?? oxyCODONE-acetaminophen 7.5-325 mg Tablet Patient instructions: Activity, Diet, Wound Care, and Follow-up have been documented in the discharge instructions and will not be repeated here. Signed: Demetri Rowe DMD 11/04/2018, 10:08 AM documented in this encounter Discharge Instructions * Discharge Instructions* Demetri Rowe DMD - 11/04/2018 10:04 AM CDT SAFETY For the next 24 hours, [...] ointment such as Vaseline. Prescriptions given. DIET Clear liquids, advance to soft mechanical/minimal chew as tolerated. If nausea is experienced, the diet should [...] Pat dry. FOLLOW-UP Call the office at [phone] to make an appointment for 7 days after surgery. Once you are home, if you develop any of the following symptoms, call your physician. Difficulty in breathing, persistent nausea or vomiting, profuse bleeding at incision site, pain that is unusual, temperature greater than 101 degrees. If you cannot contact your physician, call or come to the Emergency Room at [place] ([phone]) or the nearest Emergency Room. In an [...] 150 mg by mouth 2 times daily. clindamycin HCl (CLEOCIN) 300 mg Capsule Take 1 Capsule (300 mg) by mouth 4 times daily for 10 days. 40 Capsule 11/04/2018 11/14/2018 oxyCODONE-acetaminophen (PERCOCET) 7.5-325 mg TabletIndications:Arthralg ia of left temporomandibular joint Take 1 Tablet by mouth every 4 hours as needed for moderate pain. Max Daily Amount: 6 Tablets 30 Tablet 11/04/2018 11/28/2018 documented as of this encounter Progress Notes * Enid Jackson RN - 11/04/2018 10:14 AM CDT Discharge instruction given all questions answered. Awaiting dr. Rehman to be picked up. Will continue to monitor patient until transport arrives. documented in this encounter H&P Notes * Demetri Rowe DMD - 11/03/2018 11:38 AM CDT I have reviewed the last H&P and examined the patient today and there are no changes. Demetri Romero DMD documented in this encounter OR Notes * Operative Report - Demetri Rowe DMD - 11/03/2018 4:13 PM CDT Operative Report Kayla Ellis Austin [id number] DOS: 11/03/2018 Pre-operative Diagnosis: * INFECTED LEFT TOTAL TMJ PROSTHESIS * LEFT TMJ DISEASE Post-operative Diagnosis: Same Procedure(s) and Anesthesia Type: * TEMPOROMANDIBULAR JOINT PROSTHETIC PLACEMENT - General * STEROID INJECTION - General * TRIGEMINAL NERVE BLOCK * ABDOMINAL FAT HARVEST Surgeon(s) and Role: * Dylon Fung MD - Primary * Demetri Rowe DMD - Fellow, rn first assistant * Wanda Peres DDS - Fellow Procedure Start: 133 Procedure End: 1538 CAROLINA: The anesthesia service transported patient to OR.?? General anesthesia was induced and a nasal endotracheal tube was secured with 2-0 silk to nasal septum, taking care to avoid pressure on the ala ofthe nose.??Ear wick was placed in left ear with ciprofloxacin drops. A throat pack was placed. The previously placed arch bars were re-tightened. The patient was properly padded, relieving all pressure points. The patient prepped and draped in the usual fashion and the oral cavity was isolated from the surgical site.?? A formal time-out was executed.??Lido 1% epi 1:100,000 was infiltrated into the proposed extra-oral surgical [...] then exposed in a subperiosteal plane.?? The previously placed PMMA spacer was identified and dissected out. The site was packed with gauze. ?? A standard retromandibular approach was then performed on the left side, incising through skin, subcutaneous tissues.?? A subcutaneous flap was created for about 1 cm in all directions.?? Next the platysma was divided to expose the superficial layer of the deep cervical fascia.?? Taking care to avoid the marginal mandibular branch of the facial nerve the superficial layer of deep cervical fascia was bluntly dissected. The marginal mandibular branch of the facial nerve was retracted out of the field.? A nerve stimulator was used throughout the dissection.?? The pterygo-masseteric sling was then cut with cautery to exposed the inferior border of the mandible.?? The ramus was then dissectedand exposed in a subperiosteal plane to connect with the superior dissection from the pre-auricularapproach. The ramus portion of PMMA was identified and removed. Gauze was packed in the incision. The oral cavity was then isolated from the surgical incisions with new drapes. The oral cavity was entered. MMF was established with 24 gauge stainless steel fish wires. The oralcavity was re-covered and dirty over drapes were removed. The surgeons re-scrubbed. The left fossa component was placed according to TMJ Concept planning and found to be sable. It wassecured in place with bicortical screws. ?? The condylar prosthesis was placed and found to be stable with appropriate relationship of the condylar head to the fossa. It was stabilized to the mandible and secured in place with bicortical screws.?? The oral cavity was again re-isolated and exposed. MMF was released and revealed a stable and repeatable occlusion. The oral cavity was recovered and the extra- oral wounds were again exposed.?? The surgeons re-scrubbed.? The surgical sites were irrigated with copious NS. ? Attention was directed to the abdomen.?? A 4 cm infraumbilical incision was made through skin and subcutaneous tissue.?? About 5 cc of fat was then dissected from the abdomen taking care to avoid penetration through the abdominal musculature.?? Hemostasis was achieved and the wound was then closed in layers with 3-0 Vicryl deep sutures and a 4-0 Prolene suture for the skin. Bacitracin ointment and Tegapad was placed.? Attention was directed back to the head. The harvested fat was placed around the prosthetic condylar head.?? The submandibular incisions were closed in layers with 4-0 Vicryl for the deep layers and a 5-0 Prolene for skin.?? The pre-auricular incisions were then closed in a similar fashion in layers with 4-0 Vicryl for the deep layers. Next about 1 cc of Kennalog (40mg/ml), 1cc of Duramorph and 1 cc of 0.5% marcaine with 1:200,000 was injected into the joint space and posterior to the neck of the condyle for a trigeminal nerve block. 5-0 Prolene running suture for skin closure was used. The ear wick was removed. Bacitracin was applied to the wounds. They were covered with Telfa and a pressure dressing was applied. Attention was directed intra-orally. The occlusion was found to be stable and repeatable. The oral cavity was suctioned free of all debris and secretions. Throat pack was removed.?? Sponge and needlecounts were correct x 2.?? Care of the patient was turned over to the Anesthesia team for uneventful extubation and delivery of the patient to the PACU in stable condition. Specimens: * No specimens in log * Implants: Implant Name Type Inv. Item Serial No. Assistant Purchasing Manager Lot No. LRB No. Used Action CEMENT COBALT G-HV 40G [id number] - [id number] Cement CEMENT COBALT G-HV 40G [id number] [facility] DJO SURGICAL [id number] N/A 1 Explanted PATIENT FITTED TMJ IMPLANT, MANDIBULAR COMPONENT TMJ CONCEPTS [id number] Left 1 Implanted PATIENT FITTED TMJ IMPLANT, GLENOID FOSSA COMPONENT TMJ CONCEPTS [id number] Left 1 Implanted SCREW TMJ 2.0X6MM 61-2005 - [id number] Screw SCREW TMJ 2.0X6MM 61-2005 TMJ CONCEPTS LOAD 16 STERILIZED 10/22/2018 Left 4 Implanted SCREW TMJ 2.0X10MM - [id number] Screw SCREW TMJ 2.0X10MM -2009 TMJ CONCEPTS LOAD 16 STERILIZED 10/22/2018 Left 2 Implanted SCREW TMJ 2.0X12MM - [id number] Screw SCREW TMJ 2.0X12MM -2011 TMJ CONCEPTS LOAD 16 STERILIZED 10/22/2018 Left 5 Implanted Estimated Blood Loss: 150 mL Disposition: extubated, stable to PACU Demetri Rowe DMD * Sabrina-OP - Carla Villatoro RN - 10/25/2018 4:16 PM CDT Images from the original note were not included. [facility] Pre-Procedure Instructions PACE PACE Name: Kayla Avila Age: 43 y.o. Please report to the: [x] Surgery Center [] [facility] (2nd Floor) [] Other: Date of Procedure: 11/03/18 Arrive at the time your surgeon's office [...] anesthesia department: Based on your health history or instructed by your surgeon's office do not eat food,consume dairy products or drink liquids after midnight prior to your procedure. You may brush your teeth or use mouth wash as long as you rinse and spit on morning of surgery Do not chew gum, mints or candy on the morning of surgery WITHIN 24 HOURS PRIOR TO SURGERY ?? [...] [facility] ?? WEAR comfortable, loose fitting clothes to the hospital that will fit over dressings after your surgery. ?? WEAR GLASSES instead of contact lenses to the hospital; bring a case if possible for glasses, dentures, and hearing aids as you will be asked to remove these items before your surgery. ?? 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 DO NOT BRING [...] MEDICATION LIST Pre-Surgery Instructions: Medication Instructions ??? amoxicillin-clavulanate (AUGMENTIN) 875-125 mg tablet Take morning of surgery with sip of water ??? oxyCODONE (ROXICODONE) 5 mg tablet May take if necessary with sip of water morning of surgery ??? ondansetron (ZOFRAN) 4 mg Tablet May take if necessary with sip of water morning of surgery ??? lamoTRIgine (LaMICtal) 100 mg tablet Take morning of surgery with sip of water ??? calcium carbonate (TUMS ORAL) Do not take day of surgery ??? levETIRAcetam (KEPPRA) 1,000 mg tablet Take morning of surgery with sip of water ??? primidone (MYSOLINE) 50 mg tablet Take the evening before surgery. ??? pantoprazole (PROTONIX) 40 mg Tablet, Delayed Release (E.C.) Take morning of surgery with sip of water ??? traZODone (DESYREL) 100 mg Oral tablet Take the evening before surgery. ??? gabapentin (NEURONTIN) 600 mg Oral tablet Take morning of surgery with sip of water ??? buPROPion SR 12 hour (WELLBUTRIN-SR) 150 mg Oral tablet Take morning of surgery with sip of water documented in this encounter Miscellaneous Notes * Care Plan - Emili Alvarez RN - 11/04/2018 4:03 AM CDT Pain tolerable with oxycodone and ice packs. Patient refusing to take liquid motrin and tylenol as scheduled as it rae my throat. IV dilaudid given once for breakthrough pain at 0037 with relief.VSS on room air. DENNYS monitoring through the night. Swelling to L face. Patient states she feels like she can open her mouth and talk better since surgery. Tolerating diet. Up with standby assist. Voiding without difficulty. IV fluids infusing. SCD to BLE. No new symptoms or complaints at this time.Spouse at bedside. * Care Plan - Lubna Walsh RN - 11/03/2018 4:05 PM CDT Potential for pain related to surgical/procedural intervention Interventions: Assess level of pain/comfort utilizing verbal/nonverbal pain scales; assess culturalor islam indicators attached to pain; administer pain medications as prescribed; utilize non-pharmacologic pain control and comfort measures Expected Outcome: Patient demonstrates and reports adequate pain control Outcome Met: pain addressed Potential for alteration in thermoregulatory, circulatory, respiratory [...] status compatible with preoperative status Outcome Met: vss. Scant drainage on abdominal dressing. * Care Plan - Doreen Kaminski RN - 11/03/2018 10:49 AM CDT Knowledge deficit related to procedure/environment Interventions: Assess learning needs and willingness to learn; give clear, concise explanations of the environment and sequence of events surrounding the periop experience; address patient/family questions and concerns; provide teaching as indicated, provide teaching related to postoperative pain assessment utilizing pain scales Expected Outcome: Patient verbalizes or demonstrates awareness/understanding of surgery and perioperative experience Outcome Met: yes documented in this encounter Plan of Treatment Not on file documented as of this encounter Procedures Procedure Name Priority Date/Time Associated Diagnosis Comments TEMPOROMANDIBULAR JOINT ARTHROPLASTY PROSTHESIS INSERTION 11/03/2018 11:25 AM CDT Case Notes [facility] [id number] [facility] [id number] STEROID INJECTION 11/03/2018 11:25 AM CDT Case Notes [facility] [id number] [facility] [id number] POC , URINE Routine 11/03/2018 11:00 AM CDT documented in this encounter Results * POC , URINE (11/03/2018 11:00 AM CDT) HCG QUAL URINE Negative Negative 11/03/2018 11:00 AM CDT [facility] [employer] [facility] Urine 11/03/2018 11:0 0 AM CDT 11/03/2018 12:54 PM CDT Dylon Fung MD POINT OF CARE TESTIN G [facility] [employer] [facility] CLIA# [id number] [address] [place] [address] documented in this encounter Visit Diagnoses Diagnosis Arthralgia of left temporomandibular joint- Primary Arthralgia of temporomandibular joint documented in this encounter Administered Medications Inactive Administered Medications - up to 3 most recent administrations Medication Order MAR Action Action Date Dose Rate Site acetaminophen (TYLENOL) 325 mg/10.15 mL oral solution 650 mg 650 mg, Oral, EVERY 6 HOURS, First dose on Thu11/03/18 at 1800, Until Discontinued, Routine Given 11/03/2018 6:48 PM CDT 650 mg buPROPion HCl (WELLBUTRIN SR) SR 12 hour tablet 150 mg 150 mg, Oral, TWO TIMES DAILY, First dose on Thu11/04/18 at 0130, Until Discontinued, Routine Given 11/04/2018 8:55 AM CDT 150 mg Given 11/04/2018 1:34 AM CDT 150 mg ceFAZolin (ANCEF) 2,000 mg in dextrose (iso-osmotic) 100 mL IVPB (PREMIX) 2,000 mg, IV, POST-PROCEDURE Q 8 HOURS, 3 doses, First dose (after last reorder) on Thu11/03/18 at 2100, Last dose on Thu11/04/18 at 1300, Routine, Antibiotic Indication: Surgical prophylaxis Rate Verify 11/04/2018 5:50 AM CDT 200 mL/hr Rate Verify 11/04/2018 5:32 AM CDT 200 mL/hr New Bag 11/04/2018 5:30 AM CDT 2,000 mg 200 mL/hr dexamethasone (DECADRON) injection 8 mg 8 mg, IV, EVERY 8 HOURS, 3 doses, First dose on Thu11/03/18 at 1600, Last dose on Thu11/04/18 at 0900, Routine Given 11/04/2018 8:55 AM CDT 8 mg Given 11/04/2018 12:38 AM CDT 8 mg Given 11/03/2018 5:33 PM CDT 8 mg docusate sodium (COLACE) capsule 100 mg 100 mg, Oral, TWO TIMES DAILY, First dose on Thu11/03/18 at 2100, Until Discontinued, Routine fentaNYL PF (SUBLIMAZE) 50 mcg/mL injection 25 mcg 25 mcg, IV, POST-PROCEDURE Q 3 MINUTES PRN, Starting on Thu11/03/18 at 1334, Until Thu11/03/18 at 1651, Pain, For pain 1-3, Routine, PACU Given 11/03/2018 4:27 PM CDT 25 mcg Given 11/03/2018 4:22 PM CDT 25 mcg Given 11/03/2018 4:18 PM CDT 25 mcg gabapentin (NEURONTIN) capsule 1,200 mg 1,200 mg, Oral, EVERY 8 HOURS, First dose on Thu11/04/18 at 0130, Until Discontinued, Routine Given 11/04/2018 1:36 AM CDT 1,200 mg HYDROmorphone (DILAUDID) 2 mg/mL injection 1 mg 1 mg, IV, EVERY 2 HOURS PRN, 4 doses, Starting on Thu11/03/18 at 1554, Until Thu11/04/18 at 1531, Pain (See admin instructions), Routine Given 11/04/2018 12:37 AM CDT 1 mg ibuprofen (ADVIL;MOTRIN) 100 mg/5 mL oral suspension 800 mg 800 mg, Oral, EVERY 8 HOURS, First dose on Thu11/03/18 at 1600, Until Discontinued, Routine Given 11/03/2018 8:20 PM CDT 200 mg lactated ringers infusion IV, at 150 mL/hr, PRE-PROCEDURE CONTINUOUS, Starting on Thu11/03/18 at 1100, Until Thu11/03/18 at 1651, Routine New Bag 11/03/2018 1:37 PM CDT New Bag 11/03/2018 11:17 AM CDT 150 mL/hr lactated ringers infusion IV, at 125 mL/hr, POST-PROCEDURE CONTINUOUS, Starting on Thu11/03/18 at 1345, Until Thu11/04/18 at 1531, Routine, PACU New Bag 11/03/2018 4:14 PM CDT 125 mL/hr lactated ringers infusion IV, at 125 mL/hr, CONTINUOUS, Starting on Thu11/03/18 at 1600, Until Thu11/04/18 at 1531, Routine Rate Verify 11/04/2018 6:38 AM CDT 125 mL/hr Rate Verify 11/04/2018 6:02 AM CDT 125 mL/hr Restarted 11/04/2018 6:00 AM CDT 125 mL/hr lamoTRIgine (LaMICtal) tablet 350 mg 350 mg, Oral, TWO TIMES DAILY, First dose on Thu11/04/18 at 0130, Until Discontinued, Routine Given 11/04/2018 8:55 AM CDT 350 mg Given 11/04/2018 1:35 AM CDT 350 mg levETIRAcetam (KEPPRA) tablet 2,000 mg 2,000 mg, Oral, TWO TIMES DAILY, First dose on Thu11/04/18 at 0130, Until Discontinued, Routine Given 11/04/2018 8:55 AM CDT 2,000 mg Given 11/04/2018 1:35 AM CDT 2,000 mg lidocaine PF 2 % (XYLOCAINE MPF) injection 0.3 mL 0.3 mL, Infiltration, ONE TIME ONLY, 1 dose, On Thu11/03/18 at 1100, Routine Given 11/03/2018 11:17 AM CDT 0.3 mL [place], Right naloxone (NARCAN) 0.4 mg/mL injection 0.1 mg 0.1 mg, IV, SEE ADMIN INSTRUCTIONS, Starting on Thu11/03/18 at 1549, Until Thu11/04/18 at 1531, Routine ondansetron (ZOFRAN) 4 mg/2 mL injection 4 mg 4 mg, IV, EVERY 6 HOURS PRN, Starting on Thu11/03/18 at 1555, Until Thu11/04/18 at 1531, Nausea/Emesis, Routine ondansetron (ZOFRAN) 4 mg/2 mL injection 4 mg 4 mg, IV, EVERY 6 HOURS PRN, Starting on Thu11/03/18 at 1555, Until Thu11/04/18 at 1531, Nausea/Emesis, Routine Given 11/04/2018 8:17 AM CDT 4 mg Given 11/04/2018 1:34 AM CDT 4 mg Given 11/03/2018 7:07 PM CDT 4 mg oxyCODONE (ROXICODONE) oral solution 5 mg 5 mg, Oral, EVERY 4 HOURS PRN, Starting on Thu11/03/18 at 1554, Until Thu11/04/18 at 1531, Pain (See admin instructions), Routine oxyCODONE (ROXICODONE) oral solution 7.5 mg 7.5 mg, Oral, EVERY 4 HOURS PRN, Starting on Thu11/03/18 at 1554, Until Thu11/04/18 at 1531, Pain (See admin instructions), Routine Given 11/04/2018 12:1 0 PM CDT 7.5 mg Given 11/04/2018 8:18 AM CDT 7.5 mg Given 11/04/2018 3:49 AM CDT 7.5 mg pantoprazole (PROTONIX) tablet 40 mg 40 mg, Oral, DAILY BEFORE BREAKFAST, First dose on Thu11/04/18 at 0600, Until Discontinued, Routine Given 11/04/2018 5:30 AM CDT 40 mg primidone (MYSOLINE) tablet 50 mg 50 mg, Oral, DAILY AT BEDTIME, First dose (after last modification) on Thu11/04/18 at 0115, Until Discontinued, Routine prochlorperazine maleate (COMPAZINE) tablet 10 mg 10 mg, Oral, EVERY 6 HOURS PRN, Starting on Thu11/03/18 at 1555, Until Thu11/04/18 at 1531, Nausea/Emesis, Routine documented in this encounter Active and Recently Administered Medications Times are shown in CDT. Scheduled Medication Order 11/02/2018 11/03/2018 11/04/2018 acetaminophen (TYLENOL) 325 mg/10.15 mL oral solution 650 mg 650 mg, Oral, EVERY 6 HOURS, First dose on Thu11/03/18 at 1800, Until Discontinued, Routine 1848 (Given - Provider: Yarelis Puri RN) 0038 (Refused - Provider: Emili Alvarez, CHIN)0600 (Refused - Provider: Emili Alvarez, CHIN)1200 (Refused - Provider: Enid Jackson, CHIN) bupivacaine-EPINEPHrine (PF) (SENSORCAINE MPF WITH EPI) 5 mg, triamcinolone acetonide (KENALOG-40) 40 mg, morphine PF (ASTRAMORPH,DURAMORPH) 1 mg (COMPLETED) See Admin Instructions, INTRA-PROCEDURE ONCE, 1 dose, Starting on Thu11/03/18 at 1149, Until Thu11/03/18 at 1508, Routine, Intra-op 1508 (Given - Provider: Dylon Fung MD) buPROPion HCl (WELLBUTRIN SR) SR 12 hour tablet 150 mg 150 mg, Oral, TWO TIMES DAILY, First dose on Thu11/04/18 at 0130, Until Discontinued, Routine 0134 (Given - Provid er: Emili Alvarez RN)0855 (Given - Provider: Enid Jackson, RN) ceFAZolin (ANCEF) 2,000 mg in dextrose (iso-osmotic) 100 mL IVPB (PREMIX) 2,000 mg, IV, POST-PROCEDURE Q 8 HOURS, 3 doses, First dose (after last reorder) on Thu11/03/18 at 2100, Last dose on Thu11/04/18 at 1300, Routine, Antibiotic Indication: Surgical prophylaxis 2106 (New Bag - Provider: Emili Alvarez RN)2108 (Rate Verify - Provider: Emili Alvarez RN)2125 (Rate Verify - Provider: Emili Alvarez RN)2131 (Rate Verify - Provider: Emili Alvarez RN)2136 (Stopped - Provider: Emili Alvarez RN)213 (Rate Verify - Provider: Emili Alvarez, CHIN)213 (Stopped - Provider: Emili Alvarez RN) 0530 (New Bag - Provider: Emili Alvarez RN)0532 (Rate Verify - Provider: Emili Alvarez RN)0550 (Rate Verify - Provider: Emili Alvarez RN)0600 (Stopped - Provider: Emili Alvarez RN)1300 (Canceled Entry - Provider: Enid Jackson RN - Comment: pt discharged) ceFAZolin in sterile water (ANCEF) 2 gram/20 mL IV Syringe (PREMIX) 2,000 mg (CANCELED) 2,000 mg, IV, EVERY 8 HOURS, First dose on Thu11/03/18 at 1145, Until Discontinued, Routine, Antibiotic Indication: Surgical prophylaxis 1145 (Canceled Entry - Provider: Yarelis Puri RN)1307 (Given - Provider: Erma Yarbrough CRNA) dexamethasone (DECADRON) injection 8 mg (COMPLETED) 8 mg, IV, EVERY 8 HOURS, 3 doses, First dose on Thu11/03/18 at 1600, Last dose on Thu11/04/18 at 0900, Routine 1733 (Given - Provider: Yarelis Puri RN) 0038 (Given - Provider: Emili Alvarez RN)0855 (Given - Provider: Enid Jackson RN) docusate sodium (COLACE) capsule 100 mg 100 mg, Oral, TWO TIMES DAILY, First dose on Thu11/03/18 at 2100, Until Discontinued, Routine 2020 (Refused - Provider: Emili Alvarez RN) 0902 (Refused - Provider: Enid Jackson RN) gabapentin (NEURONTIN) capsule 1,200 mg 1,200 mg, Oral, EVERY 8 HOURS, First dose on Dhara 11/04/18 at 0130, Until Discontinued, Routine 0136 (Given - Provid er: Emili Alvarez RN)1300 (Canceled Entry - Provider: Enid Jackson RN) ibuprofen (ADVIL;MOTRIN) 100 mg/5 mL oral suspension 800 mg 800 mg, Oral, EVERY 8 HOURS, First dose on Thu11/03/18 at 1600, Until Discontinued, Routine 1600 (Not Given - Provider: Yarelis Puri RN - Reason: Clarify-Dose)2019 (Given - Provider: Emili Alvarez RN - Comment: unable to swallow medicine.. states it rae) 0500 (Refused - Provider: Emili Alvarez RN)1300 (Refused - Provider: Enid Jackson RN) lamoTRIgine (LaMICtal) tablet 350 mg 350 mg, Oral, TWO TIMES DAILY, First dose on Thu11/04/18 at 0130, Until Discontinued, Routine 0135 (Given - Provid er: Emili Alvarez RN)0855 (Given - Provider: Enid Jackson RN) levETIRAcetam (KEPPRA) tablet 2,000 mg 2,000 mg, Oral, TWO TIMES DAILY, First dose on Dhara 11/04/18 at 0130, Until Discontinued, Routine 0135 (Given - Provid er: Emili Alvarez RN)0855 (Given - Provider: Enid Jackson RN) lidocaine PF 2 % (XYLOCAINE MPF) injection 0.3 mL (COMPLETED) 0.3 mL, Infiltration, ONE TIME ONLY, 1 dose, On Thu11/03/18 at 1100, Routine 1117 (Given - Provider: Doreen Kaminski RN - Comment: for IV start) lidocaine-EPINEPHrine (XYLOCAINE-EPI) 1 %-1:100,000 injection 50 mL 50 mL, Infiltration, ONE TIME ONLY, 1 dose, On Thu11/03/18 at 1200, Routine, Intra-op 1200 (Canceled Entry - Provider: Yarelis Puri, RN) naloxone (NARCAN) 0.4 mg/mL injection 0.1 mg 0.1 mg, IV, SEE ADMIN INSTRUCTIONS, Starting on Thu11/03/18 at 1549, Until Thu11/04/18 at 1531, Routine pantoprazole (PROTONIX) tablet 40 mg 40 mg, Oral, DAILY BEFORE BREAKFAST, First dose on Thu11/04/18 at 0600, Until Discontinued, Routine 0530 (Given - Provid er: Emili Alvarez, CHIN) primidone (MYSOLINE) tablet 50 mg 50 mg, Oral, DAILY AT BEDTIME, First dose (after last modification) on Thu11/04/18 at 0115, Until Discontinued, Routine 0115 (Refused - Provider: Emili Alvarez, CHIN) Continuous Medication Order 11/02/2018 11/03/2018 11/04/2018 lactated ringers infusion (CANCELED) IV, at 150 mL/hr, PRE-PROCEDURE CONTINUOUS, Starting on Thu11/03/18 at 1100, Until Thu11/03/18 at 1651, Routine 1117 (New Bag - Provider: Doreen Kaminski RN)1337 (New Bag - Provider: Erma Yarbrough CRNA)1604 (Fluid Volume - Provider: Erma Yarbrough CRNA) lactated ringers infusion IV, at 125 mL/hr, POST-PROCEDURE CONTINUOUS, Starting on Thu11/03/18 at 1345, Until Thu11/04/18 at 1531, Routine, PACU 1614 (New Bag - Provider: Lubna Walsh RN) lactated ringers infusion IV, at 125 mL/hr, CONTINUOUS, Starting on Thu11/03/18 at 1600, Until Dhara 11/04/18 at 1531, Routine 1716 (Paused - Provider: Emili Alvarez RN)1716 (New Bag - Provider: Yarelis Puri RN)194 (Rate Verify - Provider: Emili Alvarez, CHIN)2108 (Stopped - Provider: Emili Alvarez, CHIN)2138 (Restarted - Provider: Emili Alvarez RN)2237 (Rate Verify - Provider: Emili Alvarez RN) 0000 (Rate Verify - Provider: Emili Alvarez RN)0108 (New Bag - Provider: Emili Alvarez RN)0125 (Rate Verify - Provider: Emili Alvarez RN)0343 (Rate Verify - Provider: Emili Alvarez, CHIN)0530 (Stopped - Provider: Emili Alvarez RN)0600 (Restarted - Provider: Emili Alvarez RN)0602 (Rate Verify - Provider: Emili Alvarez RN)0638 (Rate Verify - Provider: Emili Alvarez RN) PRN Medication Order 11/02/2018 11/03/2018 11/04/2018 ciprofloxacin HCl (CILOXAN) 0.3 % ophthalmic solution (CANCELED) INTRA-PROCEDURE PRN, Starting on Thu11/03/18 at 1457, Until Thu11/03/18 at 1558, Routine, Intra-op 1457 (Given - Provider: Demetri Rowe DMD) fentaNYL PF (SUBLIMAZE) 50 mcg/mL injection 25 mcg (CANCELED) 25 mcg, IV, POST-PROCEDURE Q 3 MINUTES PRN, Starting on Thu11/03/18 at 1334, Until Thu11/03/18 at 1651, Pain, For pain 1-3, Routine, PACU 1613 (Given - Provider: Lubna Walsh RN)1618 (Given - Provider: Lubna Walsh RN)1622 (Given - Provider: Lubna Walsh RN)1627 (Given - Provider: Lubna Walsh RN) HYDROmorphone (DILAUDID) 2 mg/mL injection 1 mg 1 mg, IV, EVERY 2 HOURS PRN, 4 doses, Starting on 11/03/18 at 1554, Until Dhara 11/04/18 at 1531, Pain (See admin instructions), Routine 0037 (Given - Provid er: Emili Alvarez RN) lidocaine-EPINEPHrine (XYLOCAINE-EPI) 1 %-1:100,000 injection (CANCELED) INTRA-PROCEDURE PRN, Starting on Thu11/03/18 at 1332, Until Thu11/03/18 at 1558, Routine, Intra-op 1332 (Given - Provider: Dylon Fung MD) ondansetron (ZOFRAN) 4 mg/2 mL injection 4 mg 4 mg, IV, EVERY 6 HOURS PRN, Starting on Thu11/03/18 at 1555, Until Dhara 11/04/18 at 1531, Nausea/Emesis, Routine ondansetron (ZOFRAN) 4 mg/2 mL injection 4 mg 4 mg, IV, EVERY 6 HOURS PRN, Starting on Thu11/03/18 at 1555, Until Dhara 11/04/18 at 1531, Nausea/Emesis, Routine 1907 (Given - Provider: Yarelis Puri, RN) 0134 (Given - Provider: Emili Alvarez, CHIN)0817 (Given - Provider: Enid Jackson, CHIN) oxyCODONE (ROXICODONE) oral solution 5 mg 5 mg, Oral, EVERY 4 HOURS PRN, Starting on Thu11/03/18 at 1554, Until Dhara 11/04/18 at 1531, Pain (See admin instructions), Routine oxyCODONE (ROXICODONE) oral solution 7.5 mg 7.5 mg, Oral, EVERY 4 HOURS PRN, Starting on Thu11/03/18 at 1554, Until Dhara 11/04/18 at 1531, Pain (See admin instructions), Routine 1724 (Given - Provider: Yarelis Puri, RN)2110 (Given - Provider: Emili Alvarez, RN) 0349 (Given - Provider: Emili Alvarez, RN)0818 (Given - Provider: Enid Jackson, CHIN)1210 (Given - Provider: Enid Jackson, CHIN) prochlorperazine maleate (COMPAZINE) tablet 10 mg 10 mg, Oral, EVERY 6 HOURS PRN, Starting on Thu11/03/18 at 1555, Until Dhara 11/04/18 at 1531, Nausea/Emesis, Routine sodium chloride 0.9 % irrigation solution (CANCELED) INTRA-PROCEDURE PRN, Starting on Thu11/03/18 at 1357, Until Thu11/03/18 at 1558, Routine, Intra-op 1357 (Given - Provider: Dylon Fung MD - Comment: PRN ON FIELD) documented in this encounter Care Teams Staff Field Engineer Relationship Specialty Start Date End Date Sg Richards MD [address] [place] [address] PCP - General Internal Medicine 06/10/17 08/13/21 documented as of this encounter
--- OUTSIDE RECORDS SUMMARY | 2024-07-16 13:01 | XMS_ITS | Encounter Summary ---
Author Organization [facility] Address [address] [place] [address] Care Team Providers Care Cable Tv Installer Name Role Phone Kyle Rodríguez MD Primary Care Provider [phone] Reason for Visit * Reason Comments Pelvic Pain new pt - previous me dical record scanned into media; last pap: 08/22/14 - states no h/o abnormal paps; s/p d&c and tubal ligation in 03/2015, having severe and constant pelvic and vaginal pain Encounter Details Date Type Department Care Team (Late st Contact Info) Description 05/25/2015 1:15 PM SENIOR CYBER SECURITY ANALYST Office Visit [facility] ASSEM[employer] - [facility] [place] [facility] [phone] [facility] [address] [address] Serafin Owens MD NO ADDRESS ON FILE Pelvic pain in female (Primary Dx) Social History Tobacco Use Types [...] Sign Reading Time Taken Comments Blood Pressure 120/72 05/25/2015 12:58 PM SENIOR CYBER SECURITY ANALYST Pulse - - Temperature - - Respiratory Rate - - Oxygen Saturation - - Inhaled Oxygen Concentration - - Weight 95.7 kg (211 lb) 05/25/2015 12:58 PM SENIOR CYBER SECURITY ANALYST Height 162.6 cm (5' 4 ) 05/25/2015 12:58 PM SENIOR CYBER SECURITY ANALYST Body Mass Index 36.22 05/25/2015 12:58 PM SENIOR CYBER SECURITY ANALYST documented in this encounter Progress Notes * Serafin Owens MD - 05/25/2015 12:56 PM CST RADHA Avila is a 40 y.o. female presenting for annual Well Woman exam. Last pap smear: 2014 Last mammogram: never had one General health is stable except for lower abdominal and pelvic pain since hysteroscopy and curettage and laparoscopic tubal ligation performed 04-03-15 Had been having continuous vaginal bleeding for 6 mos before surgery a3 Denies gu or gi symptoms U/s was negative No LMP recorded. GynHx: dub recently Had hysteroscopy and curettage History Social History ??? Marital Status: Spouse Name: N/A Number of Children: N/A ??? Years of Education: N/A Occupational History ??? Not Employed Social History Main Topics ??? Smoking status: Former Smoker Types: Cigarettes Quit date: 07/09/2012 ??? Smokeless tobacco: Not on file ??? Alcohol Use: No ??? Drug Use: No ??? Sexual Activity: Not on file Comment: LMP - 07/18/14 NO PREG Other Topics Concern ??? Not on file Social History Narrative ??? No narrative on file ROS Feeling well. No dyspnea or chest pain on exertion. No abdominal pain, change in bowel habits. No excessive fatigue or significant changes in weight. No urinary tract symptoms. DEFENSIVE LINE COACH ROS: no breast pain or new or enlarging lumps on self exam. OBJECTIVE There were no vitals taken for this visit. General: The patient appears well, alert, and in no distress. HEENT: normocephalic. No thyromegaly palpated. Resp: Lungs are clear to auscultation bilaterally. CV: regular rate and rhythm, no murmurs auscultated Abdomen: soft without tenderness, guarding, mass or organomegaly. Extremities: no edema, nontender VULVA: Normal vulva VAGINA: Normal mucosa, scant blood no cystocele, rectocele or prolapse noted CERVIX: cervical motion tenderness UTERUS: anteverted, tender on motion ADNEXA: tenderness RECTAL: BREAST EXAM: breasts appear normal, no suspicious masses, no skin or nipple changes or axillary nodes, not examined ASSESSMENT well woman Pelvic congestion syndrome PLAN Pelvic rest Percocet 10-325 May refer to david dubose No orders of the defined types were placed in this encounter. mammogram pap smear return annually or prn OR CYBER SECURITY ANALYST documented in this encounter Plan of Treatment Not on file documented as of this encounter Visit Diagnoses Diagnosis Pelvic pain in female- Primary Unspecified symptom associated with female genital organs documented in this encounter Care Teams Cable Tv Installer Relationship Specialty Start Date End Date Kyle Rodríguez MD [address] [place] [address] PCP - General Internal Medicine 09/10/12 06/09/17 documented as of this encounter
--- OUTSIDE RECORDS SUMMARY | 2024-07-16 13:01 | XMS_ITS | Encounter Summary ---
Author Organization [facility] Address [address] [place] [address] Care Team Providers Care Telegraph Repeater Technician Name Role Phone Sg Richards MD Primary Care Provider [phone] Reason for Visit * Auth/Cert Specialty Diagnoses / Procedures Referred By Contac t Referred To Contact Procedures NE ARTHROPLASTY TMJ+PROSTHESIS STEROID INJECTION TEMPOROMANDIBULAR JOINT PROSTHETIC PLACEMENT Dylon Fung MD [address] [place] [address] Referral ID Status Reason Start Date Expiration Date Visits Re quested Visits Authorized [id number] 09/14/2018 1 1 Encounter Details Date Type Department Care Team (Late st Contact Info) Description 11/03/2018 12:22 PM CDT Anesthesia Event [facility] Operating Room [address] [place] [address] Lisette Ruiz MD [address] [place] [address] Anesthesia Record Procedure Summary Procedure Name Responsible Anesthesiologist Anesthesia Start Time Anesthesia Stop Time STEROID INJECTION (Face) Lisette Ruiz MD 11/03/18 1222 11/03/18 1605 Events Date Time Event Comment 11/03/2018 1211 AN Equip Check Anesthesia eq uipment and materials checked in accordance with local policy. 1222 An Start 1224 An Start Data 1224 Pre-Induction Immediate pre- induction anesthetic assessment performed. Vital signs as noted on graphic. 1225 In Room This event disp lays the In Room time documented in the Surgical Log. Deleting this event will not remove it from the log but will remove it from the Grid and Graph timeline. 1236 An Induction 1248 An Intubation 1248 Quick Note Pt mouth wired. Wires cut by OMF after some sedation. Pt then induced without incident. Easy MV. Afrin to bilat nares. Right nare dilated with 7.5 nasal airway. Right nasal SAMEERA inserted via right nare without incident. Unable to open mouth enough to insert glidescope size 3. Flexible FO inserted via nasal SAMEERA. Dr. Fung at bedside offering to open jaw further. Mouth opened by Dr. Fung with crank. Able to easily insert glidescope size 3. Able to visualize epiglottis but not able to lift effectively. Slightly bloody. Flexible FO re-inserted back through tube to use like a stylet. Nasal SAMEERA inserted easily after that. Flex FO confirmed tracheal rings. +BBS= Tube sutured to nasal septum by surgeon. 1304 Anesthesia Ready 1310 Throat Pack Placed 1333 Procedure Start This event d isplays the Procedure Start time documented in the Surgical Log. Deleting this event will not remove it from the log but will remove it from the Grid and Graph timeline. 1334 1439 An Surgeon on Cuff 1536 Throat Pack Removed 1555 An Extubation Emergence unev entful Awake, spontaneous respirations. Adequate muscle strength demonstrated Adequate tidal volume. Orapharynx suctioned. Extubated with positive pressure ventilation. 1555 an stop data 1605 An Stop 11/04/2018 0845 Follow-up Complete Meds Name Total ceFAZolin in sterile water (ANCEF) 2 gra m/20 mL IV Syringe (PREMIX) 2,000 mg 2,000 mg glycopyrrolate (ROBINUL) 0.2 mg/ mL inje ction 0.4 mg dexmedetomidine (PRECEDEX) 100 mcg/mL IV solution 52 mcg lidocaine PF (XYLOCAINE MPF) 20 mg/mL sy ringe 40 mg propofol (DIPRIVAN) 10??mg/mL injection 200 mg succinycholine (ANECTINE) 140 mg/7 mL iv syringe 100 mg midazolam PF (VERSED) 1 mg/mL injection 4 mg fentaNYL (SUBLIMAZE) PF 50??mcg/mL injec tion 250 mcg oxymetazoline (AFRIN) 0.05% nasal spray 2 [place] dexamethasone (DECADRON) 4 mg/mL injecti on 8 mg esmolol (BREVIBLOC) 10??mg/mL injection 45 mg ketamine (KETALAR) 50??mg/mL injection 2 0 mg HYDROmorphone PF (DILAUDID) 2 mg/mL inje ction 1.5 mg ondansetron (ZOFRAN) 4??mg/2 mL injectio n 4 mg lactated ringers infusion 2,000 mL * Agents Name Air Sevoflurane % Sevoflurane O2 N2O Inspired N2O O2 * Blood No blood administrations on file. Lines, Drains, and Airways Type Details Placement Removal Wound 08/13/12; No; 1; Left:; ear; surgical wound; 11/28/21; 193208/13/12 0000 by [...] PICC Length: 36; PICC Line Lot #: [id number]; PICC Line Petrologist: Bard; Insertion Attempts: 1; Patient Tolerance: tolerated well; Pain Prevention: intradermal injection; Power Injectable Compatible: Yes 06/19/18 0951 by Madai Curtis RN 11/27/18 1510 by Arin Sy RN Peripheral IV Pre-Hospital Start: No; Orientation: Right; Location: Hand; Device: Angiocath; Gauge: 20 gauge; Needle Length: 1.5 in length; Insertion Attempts: 1; Patient Tolerance: tolerated well; Pain Prevention: intradermal injection 11/03/18 1115 by Doreen Kaminski RN 11/04/18 1357 by Enid Jackson RN Endotracheal Airway Type: NT Tube (easy MV); Cuff Pressure: minimal leak technique, minimal occluding volume, cuff inflated; Size: 7; Site: right nostril; Attempts: 2 (see quick note); cm: 28; Device: Video Laryngoscope, FO-Flex; Blade: 3; Secured: secured with tape; Verification: Auscultated bilateral breath sounds, Equal chest movement, Continuous waveform capnography 11/03/18 1248 by Erma Yarbrough CRNA 11/03/18 1555 by Erma Yarbrough CRNA Peripheral IV Pre-Hospital Start: No; Orientation: Left; Location: Hand; Device: Angiocath; Gauge: 18 gauge; Insertion Attempts: 1; Patient Tolerance: tolerated well; Removal Indication: site symptomatic; Removal Interventions: catheter intact, direct pressure 11/03/18 1259 by Erma Yarbrough CRNA 11/03/18 1850 by Yarelis Puri RN Indwelling Urethral Catheter 11/03/18; 1310; No; Indwelling double lumen catheter; 100% silicone; 16 Fr; inserted (BY JOSELYN PULIDO RN); 1; 5; 10; 11/03/18; 1541 11/03/18 1310 by Crystal Donis RN 11/03/18 1541 by Ana Alvarez RN Incision 11/03/18; 1456; surgical incision; Left; face; 11/05/18; 0131 11/03/18 1456 by Ana Alvarez RN 11/05/18 0131 by PROVIDER, DISCHARGE PATIENT Incision 11/03/18; 1516; surgical incision; Right; abdomen; 11/05/18; 0131 11/03/18 1516 by Ana Alvarez RN 11/05/18 0131 by PROVIDER, DISCHARGE PATIENT documented in this [...] Notes * Anesthesia Post-Op Follow-up Note - Everett Lion PA - 11/04/2018 8:44 AM CDT 11/04/2018 8:45 AM Kayla Avila No apparent Anesthesia related complications MADONNA Barrios * Anesthesia Postprocedure Evaluation - Juan Calle MD - 11/03/2018 4:23 PM CDT Post Anesthesia Evaluation Vitals: Vitals Value Taken Time BP 109/58 11/03/2018 4:15 PM Temp 36.3 ??C 11/03/2018 3:58 PM Resp 17 11/03/2018 4:23 PM SpO2 100 % 11/03/2018 4:23 PM Pulse 74 11/03/2018 4:23 PM Heart Rate 73 bpm 11/03/2018 4:23 PM Vitals shown include unvalidated device data. Pain Rating: Pain Rating: Rest: 7 (11/03/18 1613) Nausea/Vomiting: no nausea and no vomiting Post-Op hydration: well hydrated Respiratory function: no respiratory symptoms Airway patency: normal Cardiovascular function: Normal - Regular rate and rhythm Mental status, LOC: 0=alert; keenly responsive Patient participated in evaluation: yes Unanticipated Events: no Juan Calle MD * Anesthesia Handoff - Erma Yarbrough CRNA - 11/03/2018 4:04 PM CDT Post-Anesthetic transfer of care report [...] and acknowledgement of understanding. Vital Signs: BP: 97/60 (11/03/2018 3:58 PM) Pulse: 69 (11/03/2018 3:58 PM) Heart Rate: 62 bpm (11/03/2018 3:58 PM) Temp: 36.3 ??C (11/03/2018 3:58 PM) Resp: 16 (11/03/2018 3:58 PM) SpO2: 100 % (11/03/2018 3:58 PM) 4:04 PM Erma Yarbrough CRNA * Anesthesia Preprocedure Evaluation - Lisette Ruiz MD - 11/03/2018 1:30 PM CDT Relevant Problems No relevant active problems Anesthesia Evaluation Airway Mallampati: IV TM distance: <3 FB Neck ROM: full Comment: TMJ, mouth currently wired shut Dental Comment: No loose teeth Pulmonary breath sounds clear to auscultation (+) sleep apnea, (-) asthma, shortness of breath, recent URI ROS comment: Has not smoked since May Pt has had jaw wired shut since surgery in may Cardiovascular Exercise tolerance: good (-) murmur Rhythm: regular Rate: normal Neuro/Psych (+) seizures (epilepsy, last seizure 12 months ago, did not take AM dose of medication today), psychiatric history (depression, axiety) GI/Hepatic/Renal (+) GERD well controlled, Endo/Other (+) arthritis (-) diabetes mellitus, hypothyroidism Abdominal - normal exam Anesthesia History History of difficult intubation (very limited mouth opening). Anesthesia Plan ASA 3 General Intravenous induction Nasal ETT airway maintenance NPO status > 8 hours Anesthetic plan and risks discussed with Patient and Spouse. Use of blood products: consented to blood products. Plan discussed with Nurse Vault Maker and Surgeon. Smoking Compliance Patient did not smoke on day of surgery documented in this encounter Plan of Treatment Not on file documented as of this encounter Visit Diagnoses Not on filedocumented in this encounter Administered Medications Inactive Administered Medications - up to 3 most recent administrations Medication Order MAR Action Action Date Dose Rate Site ceFAZolin in sterile water (ANCEF) 2 gram/20 mL IV Syringe (PREMIX) 2,000 mg 2,000 mg, IV, EVERY 8 HOURS, First dose on Thu11/03/18 at 1145, Until Discontinued, Routine, Antibiotic Indication: Surgical prophylaxis Given 11/03/2018 1:07 PM CDT 2,000 mg dexamethasone (DECADRON) injection INTRA-PROCEDURE PRN, Starting on Thu11/03/18 at 1304, Until Thu11/03/18 at 1605, Routine, Anesthesia Intra-op Given 11/03/2018 1:04 PM CDT 8 mg dexmedetomidine (PRECEDEX) 100 mcg/mL infusion INTRA-PROCEDURE PRN, Starting on Thu11/03/18 at 1227, Until Thu11/03/18 at 1605, Routine, Anesthesia Intra-op Given 11/03/2018 12:33 PM CDT 12 mcg Given 11/03/2018 12:30 PM CDT 20 mcg Given 11/03/2018 12:27 PM CDT 20 mcg esmolol (BREVIBLOC) 100 mg/10 mL (10 mg/mL) injection INTRA-PROCEDURE PRN, Starting on Thu11/03/18 at 1357, Until Thu11/03/18 at 1605, Routine, Anesthesia Intra-op Given 11/03/2018 2:01 PM CDT 20 mg Given 11/03/2018 1:57 PM CDT 25 mg fentaNYL PF (SUBLIMAZE) 50 mcg/mL injection INTRA-PROCEDURE PRN, Starting on Thu11/03/18 at 1236, Until Thu11/03/18 at 1605, Routine, Anesthesia Intra-op Given 11/03/2018 2:03 PM CDT 50 mcg Given 11/03/2018 1:52 PM CDT 50 mcg Given 11/03/2018 1:37 PM CDT 100 mcg glycopyrrolate (ROBINUL) injection INTRA-PROCEDURE PRN, Starting on Thu11/03/18 at 1226, Until Thu11/03/18 at 1605, Routine, Anesthesia Intra-op Given 11/03/2018 12:29 PM CDT 0.2 mg Given 11/03/2018 12:26 PM CDT 0.2 mg HYDROmorphone (PF) (DILAUDID) injection INTRA-PROCEDURE PRN, Starting on Thu11/03/18 at 1416, Until Thu11/03/18 at 1605, Routine, Anesthesia Intra-op Given 11/03/2018 3:08 PM CDT 0.5 mg Given 11/03/2018 2:52 PM CDT 0.5 mg Given 11/03/2018 2:16 PM CDT 0.5 mg ketamine (KETALAR) 50 mg/mL injection INTRA-PROCEDURE PRN, Starting on Thu11/03/18 at 1413, Until Thu11/03/18 at 1605, Routine, Anesthesia Intra-op Given 11/03/2018 2:51 PM CDT 10 mg Given 11/03/2018 2:13 PM CDT 10 mg lactated ringers infusion IV, at 150 mL/hr, PRE-PROCEDURE CONTINUOUS, Starting on Thu11/03/18 at 1100, Until Thu11/03/18 at 1651, Routine New Bag 11/03/2018 1:37 PM CDT New Bag 11/03/2018 11:17 AM CDT 150 mL/hr lidocaine PF (XYLOCAINE MPF) 100 mg/5 mL (2 %) injection INTRA-PROCEDURE PRN, Starting on Thu11/03/18 at 1236, Until Thu11/03/18 at 1605, Routine, Anesthesia Intra-op Given 11/03/2018 12:36 PM CDT 40 mg midazolam (PF) (VERSED) injection INTRA-PROCEDURE PRN, Starting on Thu11/03/18 at 1222, Until Thu11/03/18 at 1605, Routine, Anesthesia Intra-op Given 11/03/2018 12:22 PM CDT 4 mg ondansetron (ZOFRAN) 4 mg/2 mL injection INTRA-PROCEDURE PRN, Starting on Thu11/03/18 at 1508, Until Thu11/03/18 at 1605, Routine, Anesthesia Intra-op Given 11/03/2018 3:08 PM CDT 4 mg oxymetazoline (AFRIN) 0.05 % nasal spray INTRA-PROCEDURE PRN, Starting on Thu11/03/18 at 1246, Until Thu11/03/18 at 1605, Routine, Anesthesia Intra-op Given 11/03/2018 12:46 PM CDT 2 Sprays propofol (DIPRIVAN) injection INTRA-PROCEDURE PRN, Starting on Thu11/03/18 at 1236, Until Thu11/03/18 at 1605, Anesthesia Intra-op Given 11/03/2018 12:45 PM CDT 50 mg Given 11/03/2018 12:42 PM CDT 50 mg Given 11/03/2018 12:36 PM CDT 100 mg succinylcholine Chloride (ANECTINE) 140 mg/7 mL (20 mg/mL) injection INTRA-PROCEDURE PRN, Starting on Thu11/03/18 at 1237, Until Thu11/03/18 at 1605, Routine, Anesthesia Intra-op Given 11/03/2018 12:37 PM CDT 100 mg documented in this encounter Care Teams Telegraph Repeater Technician Relationship Specialty Start Date End Date Sg Richards MD [address] [place] [address] PCP - General Internal Medicine 06/10/17 08/13/21 documented as of this encounter
--- OUTSIDE RECORDS SUMMARY | 2024-07-16 13:01 | XMS_ITS | Encounter Summary ---
Author Organization [facility] Address [address] [place] [address] Care Team Providers Care Baseball Coach Name Role Phone Kyle Rodríguez MD Primary Care Provider [phone] Encounter Details Date Type Department Care Team (Late st Contact Info) Description 01/31/2013 Orders Only [facility] Internal Medicine [address] [address] Provider, Abstract NO ADDRESS ON FILE Social History Tobacco [...] Name Priority Date/Time Associated Diagnosis Comments PATHOLOGY REPORT Routine 01/03/2013 documented in this encounter Results * PATHOLOGY REPORT (01/03/2013) Abstract Provider PATHOLOGY/CYTOLOGY O RDERABLES [facility] [employer] SERVICES [facility]# [id number] [address] [place] [address] documented in this encounter Visit Diagnoses Not on filedocumented in this encounter Care Teams Baseball Coach Relationship Specialty Start Date End Date Kyle Rodríguez MD [address] [place] [address] PCP - General Internal Medicine 09/10/12 06/09/17 documented as of this encounter
--- OUTSIDE RECORDS SUMMARY | 2024-07-16 13:01 | XMS_ITS | Encounter Summary ---
Author Organization [facility] Address [address] [place] [address] Care Team Providers Care Department Clerk Name Role Phone Sg Richards MD Primary Care Provider Encounter Details Date Type Department Care Team (Late st Contact Info) Description 07/06/2018 Orders Only [facility] Non Integrated Provider [address] [place] [address] Soto Porras MD NO ADDRESS ON FILE Social History [...] Procedure Name Priority Date/Time Associated Diagnosis Comments C. DIFFICILE DETECTION Routine 07/06/2018 12:00 AM PERSONAL INVESTMENT ADVISER documented in this encounter Results * C. DIFFICILE DETECTION (07/06/2018 12:00 AM PERSONAL INVESTMENT ADVISER) C DIFFICILE TOXIN Negative Negative [facility] 07/06/2018 07/06/2018 Narrative [facility] - 07/09/2018 7:13 AM PERSONAL INVESTMENT ADVISER Performed at: ??01 - [facility] [address], [place], [place] [id number] [employer] Architect: Wood Sun PhD, Phone: ??[phone] Soto Porras MD MICROBIOLOGY - GEN ERAL ORDERABLES [facility] documented in this encounter Visit Diagnoses Not on filedocumented in this encounter Care Teams Department Clerk Relationship Specialty Start Date End Date Sg Richards MD [address] [place] [address] PCP - General Internal Medicine 06/10/17 08/13/21 documented as of this encounter
--- OUTSIDE RECORDS SUMMARY | 2024-07-16 13:01 | XMS_ITS | Encounter Summary ---
Author Organization [facility] Address [address] [place] [address] Care Team Providers Care Fluid Dynamicist Name Role Phone Kyle Rodríguez MD Primary Care Provider [phone] Encounter Details Date Type Department Care Team (Late st Contact Info) Description 05/24/2015 Abstract [facility] PIPE LINE MAINTENANCE SUPERVISOR - Medical [facility] [address] [facility] [place] [address] [id number] Serafin Owens MD NO ADDRESS ON FILE Social History [...] on filedocumented in this encounter Care Teams Fluid Dynamicist Relationship Specialty Start Date End Date Kyle Rodríguez MD [address] [place] [address] PCP - General Internal Medicine 09/10/12 06/09/17 documented as of this encounter
--- OUTSIDE RECORDS SUMMARY | 2024-07-16 13:01 | XMS_ITS | Encounter Summary ---
Author Organization [facility] Address [address] [place] [address] Care Team Providers Care Garment Alteration Examiner Name Role Phone Kyle Rodríguez MD Primary Care Provider [phone] Reason for Visit * Reason Comments Ultrasound Encounter Details Date Type Department Care Team (Late st Contact Info) Description 05/25/2015 1:50 PM REFRIGERATION UNIT REPAIRER Office Visit [facility] ORACLE BUSINESS ANALYST - Medical [facility] [phone] [facility] [address] [address] Gwen Mondragon DUB (dysfunctional uterine bleeding) (Primary Dx); Pelvic pain in female Social History Tobacco Use Types Packs/Day Years [...] as of this encounter Progress Notes * Yesenia Hand RDMS - 05/25/2015 1:47 PM CST Patient seen in office today and ultrasound performed IGERATION UNIT REPAIRER documented in this encounter Plan of Treatment Not on file documented as of this encounter Procedures Procedure Name Priority Date/Time Associated Diagnosis Comments US PELVIC TRANSVAGINAL Routine 05/25/2015 DUB (dysfunctional uterine bleeding) Pelvic pain in female documented in this encounter Results * US PELVIC TRANSVAGINAL (05/25/2015) Anatomical Region Laterality Modality Pelvis Other Impressions 05/25/2015 Kayla Avila is a 40 y.o. female Presents for USN to evaluate DUB. Today's USN reveals a/an homogeneous uterus. ??Endometrium measures 7.83 mm. No intracavitary lesions are seen. There are NO uterine nodules identified. ??The left ovary appears normal(tender). ??The right ovary appears normal. Free fluid is NOT seen in the cul-de-sac. ??Clinical correlation is recommended. Serafin Owens MD US ORDERABLES documented in this encounter Visit Diagnoses Diagnosis DUB (dysfunctional uterine bleeding)- Primary Other disorder of menstruation and other abnormal bleeding from female genital tract Pelvic pain in female Unspecified symptom associated with female genital organs documented in this encounter Care Teams Garment Alteration Examiner Relationship Specialty Start Date End Date Kyle Rodríguez MD [address] [place] [address] PCP - General Internal Medicine 09/10/12 06/09/17 documented as of this encounter
--- OUTSIDE RECORDS SUMMARY | 2024-07-16 13:01 | XMS_ITS | Encounter Summary ---
Author Organization [facility] Address [address] [place] [address] Care Team Providers Care Cable Maintainer Name Role Phone Kyle Rodríguez MD Primary Care Provider [phone] Reason for Visit * Reason Onset Date Comments Other 05/15/2014 Encounter Details Date Type Department Care Team ([facility] Contact Info) Description 05/15/2014 Telephone [facility] [place] [address] [place] [address] [address] [place] [address] Lamine Latham MD [address] [place] [address] Other Social History Tobacco Use Types Packs/Day Years [...] encounter Miscellaneous Notes * Telephone Encounter - Soledad Hyman - 05/15/2014 11:18 AM CDT Called patient to schedule a VNS consult per [facility]. Spoke with patient. At this time the patient does not wish to schedule a consult with Dr Latham. Patient is trying a medication and states it is currently working. Patient states she has undergone so many surgeries and does not wantto have any more . Patient states the VNS would be her last option . Patient states she is workingwith her doctor, Dr Ray and is hopeful the medication continues to work. documented in this encounter Plan of Treatment Not on file documented as of this encounter Visit Diagnoses Not on filedocumented in this encounter Care Teams Cable Maintainer Relationship Specialty Start Date End Date Kyle Rodríguez MD [address] [place] [address] PCP - General Internal Medicine 09/10/12 06/09/17 documented as of this encounter
--- OUTSIDE RECORDS SUMMARY | 2024-07-16 13:01 | XMS_ITS | Encounter Summary ---
Author Organization [facility] Address [address] [place] [address] Care Team Providers Care Newspaper Illustrator Name Role Phone Kyle Rodríguez MD Primary Care Provider [phone] Encounter Details Date Type Department Care Team (Late st Contact Info) Description 01/31/2013 Abstract [facility] Internal Medicine [address] [address] Provider, Abstract NO ADDRESS ON [...] on filedocumented in this encounter Care Teams Newspaper Illustrator Relationship Specialty Start Date End Date Kyle Rodríguez MD [address] [place] [phone] PCP - General Internal Medicine 09/10/12 06/09/17 documented as of this encounter
--- OUTSIDE RECORDS SUMMARY | 2024-07-16 13:01 | XMS_ITS | Encounter Summary ---
Author Organization [facility] Address [address] [place] [address] Care Team Providers Care Director Of Radio Services Name Role Phone Kyle Rodríguez MD Primary Care Provider [phone] Reason for Visit * Reason Onset Date Comments General 03/26/2016 Encounter Details Date Type Department Care Team (Late st Contact Info) Description 03/26/2016 Patient Outreach [facility] LIBRARY SERVICES COORDINATOR - Medical [facility] [phone] [facility] [address] [address] Serafin Owens MD NO ADDRESS ON FILE General Social History Tobacco Use Types Packs/Day Years [...] encounter Miscellaneous Notes * Telephone Encounter - Frieda Dykes - 03/26/2016 11:30 AM CDT RECALL LETTER SENT TO REMIND PATIENT IT IS TIME FOR A WELL WOMAN APPOINTMENT. documented in this encounter Plan of Treatment Not on file documented as of this encounter Visit Diagnoses Not on filedocumented in this encounter Care Teams Director Of Radio Services Relationship Specialty Start Date End Date Kyle Rodríguez MD [address] [place] [phone] PCP - General Internal Medicine 09/10/12 06/09/17 documented as of this encounter
--- OUTSIDE RECORDS SUMMARY | 2024-07-16 13:01 | XMS_ITS | Encounter Summary ---
Author Organization [facility] Address [address] [place] [address] Care Team Providers Care Boot Maker Name Role Phone Sg Richards MD Primary Care Provider [phone] Reason for Visit * Auth/Cert Specialty Diagnoses / Procedures Referred By Contac t Referred To Contact Diagnoses LT. EAR MASS Procedures [place] ARTHROPLASTY TMJ+PROSTHESIS Dylon Fung MD [address] [address] Referral ID Status Reason Start Date Expiration Date Visits Re quested Visits Authorized [id number] 04/13/2018 1 1 Encounter Details Date Type Department Care Team (Latest Contact Info) Description 06/17/2018 10:50 AM DIRECTOR OF TEENAGE ACTIVITIES - 06/23/2018 5:27 PM [facility] Hospital Encounter [facility] Trauma and Surgery [address] [place] [address] Dylon Fung MD [address] [address] Seizure disorder Discharge Disposition: Home Health Care Svc Social History Tobacco Use Types Packs/Day Years [...] Sign Reading Time Taken Comments Blood Pressure 109/67 06/23/2018 4:00 PM DIRECTOR OF TEENAGE ACTIVITIES Pulse 61 06/23/2018 4:00 PM DIRECTOR OF TEENAGE ACTIVITIES Temperature 36.9 ??C (98.4 ??F) 06/23/2018 4:00 AM CS T Respiratory Rate 18 06/23/2018 4:00 PM DIRECTOR OF TEENAGE ACTIVITIES Oxygen Saturation 96% 06/23/2018 4:00 PM DIRECTOR OF TEENAGE ACTIVITIES Inhaled Oxygen Concentration - - Weight 95.3 kg (210 lb) 06/17/2018 11:12 AM DIRECTOR OF TEENAGE ACTIVITIES Height 162.6 cm (5' 4 ) 06/17/2018 11:12 AM DIRECTOR OF TEENAGE ACTIVITIES Body Mass Index 36.05 06/17/2018 11:12 AM DIRECTOR OF TEENAGE ACTIVITIES documented in this encounter Discharge Summaries * Nick-Demetri Schwarz, DMD - 06/22/2018 3:16 PM CST Patient: Kayla Lamavers / 43 y.o. / female : 1975 CSN: [id number] Admission date: 06/17/2018 Discharge date: 11/03/12 Admitting [...] Take 800 mg by mouth. Unknown at Unknowntime ??? [DISCONTINUED] oxyCODONE-acetaminophen (PERCOCET) 5-325 mg Oral [...] Signed: Demetri Rowe DMD 06/22/2018, 3:17 PM CTOR OF TEENAGE ACTIVITIES documented in this encounter Discharge Instructions * Discharge Instructions* Angela Dodd MSW - 06/23/2018 4:11 PM DIRECTOR OF TEENAGE ACTIVITIES Home Health Arrangements: - [facility] ([phone]) will provide nursing visits - [facility] will provide your IV antibiotics. Please call [phone] for any questions regarding IV antibiotics [facility] Patient Instructions Care for Your Peripherally Inserted [...] a day or two. You can take eilh-foa-zldidrz pain medicine, such as Tylenol or Advil, [...] Pat dry. FOLLOW-UP Call the office at [phone] to make an appointment for 7 days after surgery. Once you are home, if you develop any of the following symptoms, call your physician. Difficulty in breathing, persistent nausea or vomiting, profuse bleeding at incision site, pain that is unusual, temperature greater than 101 degrees. If you cannot contact your physician, call or come to the Emergency Room at [place] ([phone]) or the nearest Emergency Room. In an emergency, Call 911 CTOR OF TEENAGE ACTIVITIES documented in this encounter Medications at Time [...] this encounter Progress Notes * Demetri Rowe, MATILDE - 06/22/2018 3:03 PM CST DOA: 06/17/2018 [...] Current Medications: Current Facility-Administered Medications Ordered in [facility] Medication Dose Route Frequency Provider Last Rate Last Dose ??? flu vaccine quadrivalent (6 mo+)(PF) (FLULAVAL/FLUARIX [...] ??? lactated Ringers solution IV Post-Proc Continuous PessLisette lyman MD 125 mL/hr at 06/17/18 1245 ??? [...] 10 mg Oral q 6 hour PRN Romero-Schwarz Demetri, DMD 10 mg at 06/21/18 1056 ??? traZODone (DESYREL) tablet 100 mg 100 mg Oral Daily BEDTIME GowdWanda galeas, DDS 100 mg at108/22/17 2139 ??? levETIRAcetam (KEPPRA) tablet 1,000 mg 1,000 mg Oral BID GowdWanda galeas, DDS 1,000 mg at 06/22/18 0902 ??? pantoprazole (PROTONIX) tablet 40 mg 40 mg Oral AC Daily Breakfast GoWanda thayer, DDS 40mg at 06/21/18 0509 ??? gabapentin (NEURONTIN) capsule 600 mg 600 mg Oral BID GoWanda thayer, DDS 600 mg at 06/22/18 0858 ??? lamoTRIgine (LaMICtal) tablet 100 mg 100 mg Oral BID GoWanda thayer, DDS 100 mg at 06/22/18 0902 Objective: Patient Vitals for the past 8 hrs: BP Temp Temp src Pulse Resp SpO2 06/22/18 1147 (!) 94/53 98.4 ??F (36.9 ??C) Axillary (!) 58 16 96 % Intake/Output Summary (Last 24 hours) at 06/22/18 1503 Last data filed at 06/22/18 1319 Gross per 24 hour Intake 1550.07 ml Output 13 ml Net 1537.07 ml Date 06/22/18 0700 - 06/23/18 0659 Shift 1646-6064 5276-5638 5588-8641 24 Hour Total I N T A [...] F/U tomorrow in office. Demetri Rowe DMD CTOR OF TEENAGE ACTIVITIES * Soto Porras MD - 06/22/2018 1:13 PM CST [place], [place] [address] ID Progress Note CSN: [id number] DATE OF SERVICE: 06/22/2018 SUBJECTIVE Kalpana looks/feels [...] components. 2. ? Hx of CAD (including CA). 3. GERD; DENNYS; seizure disorder. 4. Multiple L jaw surgeries (distant past; includes prosthetic L TMJ). 5. Anxiety/depression. 6. Immunizations. RECOMMENDATIONS 1. Flu, Tdap shots ordered again. 2. Invanz 1 g IV q.24. 3. HH orders written from my perspective--on her paper chart. 4. RTC in 2 wks or so following at [place]. 5. Disposition--per OMFS and Hospitalists. DAJ:MEDQ DID: [id number] Dictated by: Soto Porras MD CTOR OF TEENAGE ACTIVITIES * Soto Porras MD - 06/21/2018 6:51 PM CST [place], [place] [address] ID Progress Note CSN: [id number] DATE OF SERVICE: 06/21/2018 RADHA Acuna was [...] components. 2. ? Hx of CAD (including CA). 3. Seizure disorder; DENNYS; GERD. 4. Multiple [...] per OMFS and the Hospitalists. DAJ:MEDQ DID: [id number] Dictated by: Soto Porras MD CTOR OF TEENAGE ACTIVITIES * Kraig Gabriel MD - 06/21/2018 5:45 PM CST Left otowick removed. Continue drops. RTC 7-10 days for recheck of the left ear. CTOR OF TEENAGE ACTIVITIES * Wanda Peres DDS - 06/20/2018 9:30 [...] ?? 1. Continue current management 2. Contact clinical social work therapist for antibiotics upon discharge 3. Monitor her HR and BP ?? Wanda Peres DDS ? CTOR OF TEENAGE ACTIVITIES * Wanda Peres DDS - 06/20/2018 9:30 AM CST Patient was examined this morning. POD #3. She is NAD. P/E: Mild left facial edema Situres C/D/I MMF stable/occlusion reproducible Mild leftsided CN VII weakness A/P: 43 year old female s/p removal of ??Fossa component of TMJ and excision of left ear canal lesion ?? 1. Continue current management 2. Contact clinical social work therapist for administration of Zosyn upon discharge 3. Encourage ambulation 4. Possible discharge on 06/21/18 ?? Wanda Peres DDS ?? CTOR OF TEENAGE ACTIVITIES * Rohith Quiroz MD - 06/20/2018 9:25 AM CST [facility] Adult Hospitalist Progress Note Admit [...] . Continue Keppra 3. Depression . Continue VEGETABLE FARMING SUPERVISOR meds ?? DVT Prophylaxis -start subcu heparin [...] conference, nursing conference and discussion with any project consultant. ?? Rohith Quiroz MD [facility] Hospitalist [phone] (p) CTOR OF TEENAGE ACTIVITIES * Wanda Peres DDS - 06/19/2018 12:30 PM CST Kayla [...] PICC line was placed. Vancomycin discontinued. Vitals: 06/19/18 1200 06/19/18 2100 06/20/18 0534 06/20/18 [...] lesion 1. Continue current management 2. Contact clinical social work therapist for antibiotics upon discharge Wanda Peres DDS ?? CTOR OF TEENAGE ACTIVITIES * Madai Curtis RN - 06/19/2018 9:50 [...] well. PICC placed by Kelsey Curtis RN CTOR OF TEENAGE ACTIVITIES * Rohith Quiroz MD - 06/19/2018 9:03 AM CST [facility] Adult Hospitalist Progress Note Admit [...] . Continue Keppra 3. Depression . Continue VEGETABLE FARMING SUPERVISOR meds DVT Prophylaxis -start subcu heparin Current Diet DIET FULL LIQUID Smith: None IV: Peripheral IV line Current Planned Disposition -to be determined Plan discussed with patient; questions answered; patient agrees with current plan. Current Code Status -Full Code Approx 25 min were spent in the care of this patient today; this may include family conference, nursing conference and discussion with any project consultant. Rohith Quiroz MD [facility] Hospitalist [phone] (p) CTOR OF TEENAGE ACTIVITIES * Wanda Peres, DDS - 06/18/2018 7:15 [...] wound cultures 3. PICC line 4. Contact clinical social work therapist for antibiotics upon discharge 5. SCD'S and encourage ambulation 6. Tdap and Flu shots Wanda Peres DDS CTOR OF TEENAGE ACTIVITIES * Kelin Werner RN - 06/18/2018 2:27 AM CST C/O left facial pain Alternated Prn Roxicodone po and IV Morphine Left facial swelling. Gauze/Kerlix intact to left face. IV Ancef given as ordered Tolerating full liquid diet Spouse at bedside CTOR OF TEENAGE ACTIVITIES documented in this encounter H&P Notes * Demetri Rowe DMD - 06/17/2018 1:04 PM CST I have reviewed the last H&P and examined the patient today and there are no changes. Demetri Romero DMD CTOR OF TEENAGE ACTIVITIES documented in this encounter Consult Notes * Amaris Qiu NP - 06/23/2018 10:28 AM CST [facility] Adult Hospitalist Progress Note Admit [...] health orders. 2. Hx Siezure Disorder: Continue VEGETABLE FARMING SUPERVISOR Lamictal and Keppra 3. Gerd: Continue PPI [...] agrees with the above plan. Cande CHAPARRO [facility] Hospitalist [phone] CTOR OF TEENAGE ACTIVITIES Associated attestation - Joelle Benítez MD - 06/23/2018 4:56 PM DIRECTOR OF TEENAGE ACTIVITIES [facility] I have seen and examined the patient. I have confirmed the munroe elements of the history and physicalexam, and have discussed the plan in detail with the CINETECHNICIAN. I agree with the CINETECHNICIAN's documentation with the following additions and exceptions. S: Patient wanting anti-nausea meds on discharge Physical exam: Vitals: 06/23/18 1600 BP: 109/67 Pulse: 61 Resp: 18 Temp: SpO2: 96% General: NAD CV: RRR Resp: CTAB Abd: soft, non tender, non distended Ext: no edema HEENT- unable to open jaw much Labs reviewed and noted A/P: ?? Hx of Seizure disorder: Continue VEGETABLE FARMING SUPERVISOR Lamictal and Keppra ?? 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 Continue InVanz for now per Dr. Porras --> will need to RTCin 2 weeks upon discharge. Cx with scant growth staph aureus, cutibacterium acnes. ?? Nausea- discharged with script for zofran Remaining per CINETECHNICIAN 's note. * Lazarus Amaris E, CINETECHNICIAN - 06/22/2018 1:06 PM CST [facility] Adult Hospitalist Progress Note Admit [...] and ENT. 2. Hx Siezure Disorder: Continue VEGETABLE FARMING SUPERVISOR Lamictal and Keppra 3. Gerd: Continue PPI [...] agrees with the above plan. Cande CHAPARRO [facility] Hospitalist [phone] CTOR OF TEENAGE ACTIVITIES Associated attestation - Joelle Benítez MD - 06/22/2018 3:56 PM DIRECTOR OF TEENAGE ACTIVITIES [facility] I have seen and examined the patient. I have confirmed the munroe elements of the history and physicalexam, and have discussed the plan in detail with the CINETECHNICIAN. I agree with the CINETECHNICIAN's documentation with the following additions and exceptions. S: Patient laying in bed- denies complaints. Physical exam: Vitals: 06/22/18 1147 BP: (!) 94/53 Pulse: (!) 58 Resp: 16 Temp: 98.4 ??F (36.9 ??C) SpO2: 96% General: NAD CV: RRR Resp: CTAB Abd: soft, non tender, non distended Ext: no edema Labs reviewed and noted A/P: ?? Hx of Seizure disorder: Continue VEGETABLE FARMING SUPERVISOR Lamictal and Keppra ?? 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 Continue InVanz for now per Dr. Porras. Cx with scant growth staph aureus, cutibacterium acnes Remaining per CINETECHNICIAN 's note. * Amaris Qiu, CINETECHNICIAN - 06/21/2018 2:19 PM CST [facility] Adult Hospitalist Progress Note Admit [...] on ertapenem. 2. Hx Siezure Disorder: Continue VEGETABLE FARMING SUPERVISOR Lamictal and Keppra 3. Gerd: Continue PPI [...] he agrees with the above plan. Cande Qiu [facility] [phone] CTOR OF TEENAGE ACTIVITIES Associated attestation - Rohith Quiroz MD - 06/21/2018 3:25 PM DIRECTOR OF TEENAGE ACTIVITIES I discussed this pt with Amaris Qiu NP and I agree with her plan as outlined. I also examined pt independently. 1. 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 Cx from OR specimen - MSSA . ABX simplified to Ivanz per ID . OMFS managing as well 2. Seizure disorder . Continue Keppra 3. Depression . Continue VEGETABLE FARMING SUPERVISOR meds * Soto Porras MD - 06/18/2018 6:29 PM CST [place], [place] [address] Infectious Diseases Consultation CSN: [id number] DATE OF SERVICE: 06/18/2018 HISTORY OF PRESENT [...] has been followed by an ENT in [place]. More recently, she has been followed by Dr. Kraig Gabriel here in [place]. Yesterday, Kalpana was taken to the OR [...] D. Anxiety/depression. E. Seizure/epilepsy. F. CAD (? CA). PHYSICAL EXAMINATION VITAL SIGNS: Temperature 97.9, BP [...] components 2. ? Hx of CAD (including CA). 3. Seizure disorder; DENNYS; GERD 4. Multiple L jaw surgeries (distant past; includes prosthetic L TMJ). 5. Anxiety/depression. 6. Immunizations. RECOMMENDATIONS 1. Flu shot. 2. Tdap. 3. Check baseline CRP--on blood in lab. 4. Involve Quality Lab Technician--as she will need IV ATBs at [facility]. 5. PICC. 6. Zosyn 3.375 g IV q.6. 7. Vanco 1.5 g IV q.12. 8. Consolidate IV ATBs based on yesterday's OR Cxs. 9. Timing of her next debridement (and removal of remaining L TMJ arthroplasty components)--per . Thank you for allowing us to participate in the care of this interesting patient. DAJ:MEDQ DID: [id number] Dictated by: Soto Porras MD CTOR OF TEENAGE ACTIVITIES * Rohith Quiroz MD - 06/18/2018 8:06 AM CST [facility] Adult Hospitalist Consultation Consult requested [...] . Continue Keppra 3. Depression . Continue VEGETABLE FARMING SUPERVISOR meds 4. DVT prophylaxis - SQ Lovenox if okay with primary team Thank you for allowing me to participate in the care of this patient. The [facility] Hospitalist will continue to follow as needed. HPI: 43 y/o F with past medical history of seizure disorder, depression . She is now s/p TMJ prosthetic removal after she developed fistula tract. She complains nausea and pain over surgical site. Past Medical History: Diagnosis Date ??? Anxiety ??? Arthritis left jaw ??? CAD (coronary artery disease) December 2011 CA ??? Chest pain FOR PAST 2-3 MONTHS [...] 04/10/15 ??? HX VAGINAL DELIVERY 09/19/1993 ??? TX EXC SKIN BENIG 0.6-1CM TRUNK,ARM,LEG 08/13/2012 CYST LESION MASS EXCISION performed by Kraig Gabriel MD at [facility] OR [facility] ??? TX EXC SKIN BENIG 0.6-1CM TRUNK,ARM,LEG 09/15/2012 CYST LESION MASS EXCISION performed by Kraig Gabriel MD at [facility] OR [facility] ??? TX RECONSTR JAW,FULL,ENDO IMPLNT from 2000 to 2008 total of [address] Dylon Fung ??? TX REMOVAL SUPERFICIAL IMPLANT 11/03/2012 HARDWARE REMOVAL performed by Dylon Fung MD at [facility] OR [facility] ??? TX REMV EXT CANAL SOFT TISSUE LESN 11/03/2012 AURICULAR CYST LESION MASS EXCISION performed by Dylon Fung MD at [facility] OR [facility] Current Medications: Prescriptions Prior to Admission Medication [...] 06/18/18 0700 Gross per 24 hour Intake 2069.29 ml Output 5 ml Net 2064.29 ml [...] (Rare or Occasional) WBC Rohith Quiroz MD [phone] (p) CTOR OF TEENAGE ACTIVITIES documented in this encounter OR Notes * Operative Report - Kraig Gabriel MD - 06/18/2018 2:46 AM CST [place], [place] [address] Operative Report CSN: [id number] DATE OF SERVICE: 06/17/2018 PREOPERATIVE DIAGNOSIS Left [...] TMJ prosthesis on the left side. Dr. Fungwas planning to perform wound exploration of the [...] polypoid lesion was removed with a straight Bishop blade. Bleeding was controlled with topical adrenaline. [...] Fung will dictate this separately. SHH:MEDQ DID: [id number] Dictated by: Kraig Gabriel MD CTOR OF TEENAGE ACTIVITIES * Sabrina-OP - Esther Velasco RN - 06/17/2018 4:46 PM CST Patient extremely up set and demanding to be unwired. The residents to speak to patient/she is still insisting and crying to be unwired CTOR OF TEENAGE ACTIVITIES * Operative Report - Demetri Rowe DMD - 06/17/2018 4:06 PM DIRECTOR OF TEENAGE ACTIVITIES Operative Report Kayla Avila [id number] DOS 06/17/2018 Pre-operative Diagnosis: LT. EAR MASS Post-operative Diagnosis: Same Procedure(s) and Anesthesia Type: Panel 1: * ORALMAXILLOFACIAL DEVICE REMOVAL * MYRINGOPLASTY - General * TEMPOROMANDIBULAR JOINT PROSTHETIC REMOVAL - General Panel 2: * CYST LESION MASS EXCISION - General Surgeon(s) and Role: Panel 1: * Dylon Fung MD - Primary * Demetri Rowe DMD - Fellow, training program assistant * Wanda Peres DDS - Assisting [...] t he prosthetic condylar head and the kenaitze osseous glenoid fossa. ? The pre-auricular incision [...] Fluid Ear, left AFB CULTURE WITH STAIN Karig Gabriel MD 06/17/2018 1416 3 : Left [...] Implant Name Type Inv. Item Serial No. Track Repair Person Lot No. LRB No. Used Action [employer]EMENT [employer] G-HV 40G [id number] - [id number] Cement CEMENT [employer] G-HV 40G [id number] [employer] mobility manager [employer] [id number] Left 1 Implanted PUTTY DBX DBM 1ML [id number] - [id number] Tissue PUTTY DBX DBM 1ML [id number] MUSCULOSKELETAL TRANSPLANT FOU Left 1 Implanted SCREW MMF MAXDRV 2.0X12MM [id number] - [id number] Screw SCREW MMF MAXDRV 2.0X12MM -05 KLSMARTIN LP N/A 5 Implanted KLS MMF MANDIBLE SCREWS Screw KLS MARI LP N/A 5 Implanted Estimated Blood Loss: 50 mL Disposition: extubated, stable to PACU. Demetri Rowe DMD CTOR OF TEENAGE ACTIVITIES * Sabrina-OP - Nickie Peterson RN - 06/11/2018 3:04 PM CST Images from the original note were not included. [facility] Pre-Procedure Instructions PACE PACE Name: Kayla Avila Age: 43 y.o. Please report to the: [x] Surgery Center [] [facility] (2nd Floor) [] Other: Date of [...] DO NOT BRING ANY OTHER MEDICATIONS to thehospital (unless otherwise instructed). ?? WEAR comfortable, loose fitting clothes to the hospital that will fit over dressings after your surgery. ?? WEAR GLASSES instead of contact lenses to the hospital; bring a case if possible for glasses, dentures, and hearing aids as you will be asked to remove these items before your surgery. ?? BRING your insurance cards and laborer driver's license or photo ID. DO NOT [...] morning of surgery with sip of water CTOR OF TEENAGE ACTIVITIES documented in this encounter Miscellaneous Notes * Care Plan - Shasta Linton RN - 06/23/2018 5:12 PM CST Kayla Avila will be discharged via ambulatory to home. Kayla Avila is accompanied by spouse and will be transported via private vehicle. Discharge instructions given along with prescription. PICC in place, c/d/i. Family at bedside. Painmanageable. Denies needs. Verbalized understanding. CTOR OF TEENAGE ACTIVITIES * Care Plan - Angela Dodd MSW - 06/23/2018 4:26 PM CST HOME HEALTH SERVICES [facility]ered with [facility] called. Patient can discharge. RN will see the pt at 8 AM tomorrow. CLAUDIA Hernandez, [facility] Health Liaison [phone] [place] [facility]: Adult and Obstetrics Day 1 ??? Patient, family, or healthcare designee is participating in individual care plan process Met Discharge Planning ??? Identify discharge needs upon admission and through discharge Progressing CTOR OF TEENAGE ACTIVITIES * Care Plan - Angela Dodd MSW - 06/23/2018 3:50 PM CST Home Health Services Jered from [facility] informed this SW that [facility] is working to confirm what time the RNwill see the patient tomorrow. [facility] - [phone] The IV abx will be delivered to the home prior to nursing visit (8 AM). provided evening AGUILAR Doran's phone number to Jered in case he calls with an update after hours. [place] updated. Patient can discharge when Jered confirms RN visit time. CLAUDIA Hernandez, [facility] Health Liaison [phone] [place] [facility]: Adult and Obstetrics Day 1 ??? Patient, family, or healthcare designee is participating in individual care plan process Met Discharge Planning ??? Identify discharge needs upon admission and through discharge Progressing CTOR OF TEENAGE ACTIVITIES * Care Plan - Liudmila Warner - [...] Goals of Spiritual Care Help with discharge [place] [facility] Plan Follow up with manager med surg Recommendations for Healthcare Team Call skate boarder as needed Sister Liudmila Warner, SSND, BCC, DMin [facility] Zone: [phone] Office: [phone] CTOR OF TEENAGE ACTIVITIES * Care Plan - Angela Dodd MSW - 06/23/2018 3:01 PM CST HOME HEALTH SERVICES SW spoke with Jered at [facility]. Per Jered, [facility] is seeing if they have an RN to see the patient tomorrow. Jered will call SW back within the next half hour. CLAUDIA Hernandez, [facility] Home Health Liaison [phone] [place] [facility]: Adult and Obstetrics Day 1 ??? Patient, family, or healthcare designee is participating in individual care plan process Met Discharge Planning ??? Identify discharge needs upon admission and through discharge Progressing CTOR OF TEENAGE ACTIVITIES * Care Plan - Angela Dodd MSW - 06/23/2018 2:06 PM CST HOME HEALTH SERVICES SW called [facility] and left a voicemail for Jered. SW wanting an update on home health progress. Waiting for return call. CLAUDIA Hernandez, [facility] Home Health Liaison [phone] [place] [facility]: Adult and Obstetrics Day 1 ??? Patient, family, or healthcare designee is participating in individual care plan process Met Discharge Planning ??? Identify discharge needs upon admission and through discharge Progressing CTOR OF TEENAGE ACTIVITIES * Care Plan - Angela Dodd MSW - 06/23/2018 9:21 AM CST HOME HEALTH SERVICES SW received call from Jered Carmen with [facility]. Per Jered, he is working to locate a agency tosee patient tomorrow. Jered will call SW once an agency is located. Patient cannot d/c until these arrangements are finalized. CLAUDIA Hernandez, [facility] Home Health Liaison [phone] [place] [facility]: Adult and Obstetrics Day 1 ??? Patient, family, or healthcare designee is participating in individual care plan process Met Discharge Planning ??? Identify discharge needs upon admission and through discharge Progressing CTOR OF TEENAGE ACTIVITIES * Care Plan - Demetris Rosenbaum RN - 06/23/2018 4:14 AM CST Kayla rested well throughout the shift. Pain was well controlled with pain medications. Adequate UP. Had BM and passing flatus. Turned and repositioned self often. Refused heparin and SCD's. Educated on risks and benefits of SCD's and heparin. at bedside and active in care. Discussed and agrees with POC. CTOR OF TEENAGE ACTIVITIES * Care Plan - Soledad Muñiz RN - 06/22/2018 4:28 PM CST [facility], at bedside. Pt up independently Voiding in bathoom. BM 12/3 Tolerating full liquid diet, Zofran given before AM meds d/t nausea. Denies vomiting PICC line infusing w/o difficulty Sutures intact, neosporin applied. Payton managing pain Refused Tdap/flu/Heparin shots. CTOR OF TEENAGE ACTIVITIES * Care Plan - Angela Dodd MSW - 06/22/2018 11:01 AM CST HOME HEALTH SERVICES SW spoke with [facility] work comp navigator. Xi has the order and will refer to [facility]. Per Xi, [facility] will call this worker when arrangements are finalized. SW also informed Xi pt willneed a home care agency as well. AGUILAR spoke with Jacqui at [facility]. Per Violetta, SW will get a call once the arrangements are made. CLAUDIA Hernandez, [facility] Home Health Liaison [phone] [place] [facility]: Adult and Obstetrics Day 1 ??? Patient, family, or healthcare designee is participating in individual care plan process Met Discharge Planning ??? Identify discharge needs upon admission and through discharge Progressing CTOR OF TEENAGE ACTIVITIES * Care Plan - Angela Dodd MSW - 06/22/2018 9:01 AM CST HOME HEALTH SERVICES SW called work comp navigator Xi and left a voicemail. SW asked Xi to call back RAMANDEEP, as this worker is unsure if she has referred to [facility] yet. Order faxed yesterday. CLAUDIA Hernandez, [facility] Home Health Liaison [phone] [place] [facility]: Adult and Obstetrics Day 1 ??? Patient, family, or healthcare designee is participating in individual care plan process Met Discharge Planning ??? Identify discharge needs upon admission and through discharge Progressing CTOR OF TEENAGE ACTIVITIES * Care Plan - Demetris Rosenbaum RN [...] the day. Pain controlled with pain meds. CTOR OF TEENAGE ACTIVITIES * Care Plan - Shannon Avila RN - 06/21/2018 4:47 PM CST Pt complains [...] a full liquid diet Safety precautions maintained CTOR OF TEENAGE ACTIVITIES * Care Plan - Angela Dodd MSW - 06/21/2018 2:32 PM CST HOME HEALTH SERVICES SW received voicemail from work comp navigator, Xi. AGUILAR called Xi back and left a voicemail.AGUILAR left her direct line for a return call. IV abx order faxed to Xi as well. CLAUDIA Hernandez, [facility] Home Health Liaison [phone] [place] [facility]: Adult and Obstetrics Day 1 ??? Patient, family, or healthcare designee is participating in individual care plan process Met Discharge Planning ??? Identify discharge needs upon admission and through discharge Progressing CTOR OF TEENAGE ACTIVITIES * Care Plan - Angela Dodd MSW - 06/21/2018 10:20 AM CST HOME HEALTH SERVICES SW faxed Dr. Porras's note to Xi Whyte, work comp contact for this pt. AGUILAR also left a voicemail for Xi. AGUILAR asked Xi to call this AGUILAR back if regards to home health arrangements. [...] will arrange in home services. Skilled Disciplines: Infusion MD to sign Home Care Orders: Dr. Porras Please notify the Home Health Commercial Real [employer] Paralegal with any changes to discharge plan. Additional Comments: CLAUDIA Hernandez, [facility] Home Health Liaison [phone] [place] [facility]: Adult and Obstetrics Day 1 ??? Patient, family, or healthcare designee is participating in individual care plan process Met Discharge Planning ??? Identify discharge needs upon admission and through discharge Progressing CTOR OF TEENAGE ACTIVITIES * Care Plan - Demetris Rosenbaum RN - 06/21/2018 2:51 AM CST Kayla rested between care. Turned and repositioned herself often. Passing flatus and has adequate UO. Pain was controlled with payton. Complains of nausea when taking meds and is relieved with zofran. Discussed and agrees with POC. at bedside and involved in care. CTOR OF TEENAGE ACTIVITIES * Care Plan - Soledad Muñiz RN - 06/20/2018 3:48 PM CST AxOx4, at bedside. Pt up to bathroom w/ SBA Voiding per BSC. BM 06/20 VSS, edgar and low BP, MD aware, pt asymptomatic. Incision c/d/i, ear drops given per SEP. PICC line infusing w/o difficulty. Jack full liquid diet, fair appetite. Encouraging Ensures. Payton managing pain. Seizure and fall precautions maintained at all times. CTOR OF TEENAGE ACTIVITIES * Care Plan - Meme Flannery RN - 06/20/2018 7:53 AM CST Pt remains AOx4 through the night, sleeping between care. Pain managed with oral Roxicodone. Pt tolerating full liquid diet and crushed meds. VSS. Lc remains at bedside. CTOR OF TEENAGE ACTIVITIES * Care Plan - Soledad Muñiz RN - 06/19/2018 3:21 PM CST A&O x4 VSS SBA Pt jaw wired shut, able to use a straw to drink liquid Medications crushed and given through straw Pain managed with liquid Yudelka Nausea managed with Zofran Voids per bathroom, Last BM [employer] PICC line place in left arml in radiology Personal items and call light within reach at bedside Full liquid diet, fair appetite. Dressing removed by , sutures intact Written by SN Yonny Co-Signed by Phyllis Liriano RN CTOR OF TEENAGE ACTIVITIES * Treatment Plan - Madai Curtis RN - 06/19/2018 8:54 AM CST DIAGNOSTIC TESTS Protocol (X-RAYS) for Placement Verification of Enteral Tubes; Central Venous Lines AND pH PROBE [facility] ORDERS ARE ENTERED ???PER PROTOCOL?? Enter the protocol in the patient???s electronic health record using HomeStay: .diagnostictestsprotocol Nursing Orders: CENTRAL VENOUS LINE PLACEMENT [...] Nursing Leadership, Pharmacy & Therapeutics Date: 01/2018 CTOR OF TEENAGE ACTIVITIES * Care Plan - Livia Roman RN - 06/18/2018 3:48 PM CST Kayla complained of 30/10 pain in AM; multiple medications provided; decreased in the afternoon; advised to try ibuprofen to help with inflammation refused to try Complained of continuous nausea; multiple medications provided per MAR; verbalized small amounts ofrelief Eating a small amount of full liquid diet Ambulating with standby assistance to BSC Dressing on L ear c/d/i Refused turned team multiple times; repositioning self in bed Resting quietly between care Phone, call light and personal items within reach CTOR OF TEENAGE ACTIVITIES * Care Plan - Kathleen Puri RN [...] home care. Have contacted Xi Whyte / [employer] (work comp) / ph:[phone] /// F: [phone].She stated she would need clinical to support [...] left a voice message for Xi at [phone]. I have had no respo nse. Please place consult if needs for discharge are identified. Care Management will continue to follow for discharge planning. Kathleen Puri R.N. / [facility] Management [phone] CTOR OF TEENAGE ACTIVITIES * Care Plan - Akosua Damon RN - 06/17/2018 8:31 PM CST Undress and Assess performed by: Akosua White Admission or upon transfer to: [facility] from PACU ~~~~~~~~~~~~~~~~~~~~~~~~~~~~ Is the patient a [...] at bedside and call light w/in reach. CTOR OF TEENAGE ACTIVITIES * Care Plan - Lelo Chua RN [...] Patient/Family verbalizes understanding of pre op procedures. CTOR OF TEENAGE ACTIVITIES documented in this encounter Plan of Treatment Not on file documented as of this encounter Procedures Procedure Name Priority Date/Time Associated Diagnosis Comments TELEMETRY REPORT 06/24/2018 3:33 PM DIRECTOR OF TEENAGE ACTIVITIES CBC WITH DIFFERENTIAL Routine 06/22/2018 5:10 AM DIRECTOR OF TEENAGE ACTIVITIES COMPREHENSIVE METABOLIC PANEL Routine 06/22/2018 5:10 AM DIRECTOR OF TEENAGE ACTIVITIES IR VENOUS ACCESS Routine 06/19/2018 10:00 AM DIRECTOR OF TEENAGE ACTIVITIES CBC WITH DIFFERENTIAL Routine 06/18/2018 11:14 AM DIRECTOR OF TEENAGE ACTIVITIES C-REACTIVE PROTEIN Routine 06/18/2018 11:14 AM DIRECTOR OF TEENAGE ACTIVITIES COMPREHENSIVE METABOLIC PANEL Routine 06/18/2018 11:14 AM DIRECTOR OF TEENAGE ACTIVITIES AFB CULTURE WITH STAIN Routine 8 2:49 PM DIRECTOR OF TEENAGE ACTIVITIES ANAEROBIC/AEROBIC CULTURE W GRAM STAIN Routine 06/17/2018 2:49 PM DIRECTOR OF TEENAGE ACTIVITIES ANAEROBIC/AEROBIC CULTURE W GRAM STAIN Routine 06/17/2018 2:43 PM DIRECTOR OF TEENAGE ACTIVITIES FUNGUS CULTURE, OTHER Routine 06/17/2018 2:17 PM DIRECTOR OF TEENAGE ACTIVITIES AFB CULTURE WITH STAIN Routine 8 2:16 PM DIRECTOR OF TEENAGE ACTIVITIES ANAEROBIC/AEROBIC CULTURE W GRAM STAIN Routine 06/17/2018 2:15 PM DIRECTOR OF TEENAGE ACTIVITIES PATHOLOGY Pathology 06/17/2018 2:09 PM DIRECTOR OF TEENAGE ACTIVITIES POC , URINE Routine 06/17/2018 12:52 PM DIRECTOR OF TEENAGE ACTIVITIES MYRINGOPLASTY 06/17/2018 12:10 PM DIRECTOR OF TEENAGE ACTIVITIES LT. EAR MASS Case Notes WORK COMP, APPROVED, CPT 53022, 12448 TEMPOROMANDIBULAR JOINT PROSTHETIC REMOVAL 06/17/2018 12:10 PM DIRECTOR OF TEENAGE ACTIVITIES LT. EAR MASS Case Notes WORK COMP, APPROVED, CPT 64598, 82403 CYST LESION MASS EXCISION 06/17/2018 12:10 PM DIRECTOR OF TEENAGE ACTIVITIES LT. EAR MASS Case Notes WORK COMP, APPROVED, CPT 01253, 49067 ORALMAXILLOFACIAL DEVICE REMOVAL 06/17/2018 12:10 PM DIRECTOR OF TEENAGE ACTIVITIES LT. EAR [place]ASS Case Notes WORK COMP, APPROVED, CPT 37467, 50348 EDUCATION ANESTHESIA (ADULT) Routine 06/11/2018 3:18 PM DIRECTOR OF TEENAGE ACTIVITIES documented in this encounter Results * TELEMETRY REPORT (06/24/2018 3:33 PM DIRECTOR OF TEENAGE ACTIVITIES) Provider Scanning ECG ORDERABLES * (ABNORMAL) CBC WITH DIFFERENTIAL (06/22/2018 5:10 AM DIRECTOR OF TEENAGE ACTIVITIES) WBC 7.1 4.0 - 9.8 K/uL 06/22/2018 5:36 AM DIRECTOR OF TEENAGE ACTIVITIES [facility] RBC 3.58(L) 3.90 - 4.90 M/uL 06/22/2018 5:36 AM DIRECTOR OF TEENAGE ACTIVITIES [facility] HEMOGLOBIN 12.0 11.8 - 14.8 g/dL 06/22/2018 5:36 AM DIRECTOR OF TEENAGE ACTIVITIES [facility] HEMATOCRIT 35.3(L) 35.5 - 44.0 % 06/22/2018 5:36 AM DIRECTOR OF TEENAGE ACTIVITIES [facility] MCV 98.6 82.0 - 99.0 fL 06/22/2018 5:36 AM DIRECTOR OF TEENAGE ACTIVITIES [facility] MCH 33.5(H) 27.2 - 32.6 pg 06/22/2018 5:36 AM DIRECTOR OF TEENAGE ACTIVITIES [facility] MCHC 34.0 31.5 - 35.5 g/dL 06/22/2018 5:36 AM DIRECTOR OF TEENAGE ACTIVITIES [facility] RDW 11.9 11.5 - 14.5 % 06/22/2018 5:36 AM DIRECTOR OF TEENAGE ACTIVITIES [facility] RDW-STDEV 43.8 37.1 - 48.7 fL 06/22/2018 5:36 AM DIRECTOR OF TEENAGE ACTIVITIES [facility] PLATELETS 178 140 - 350 K/uL 06/22/2018 5:36 AM DIRECTOR OF TEENAGE ACTIVITIES [facility] MPV 11.1 9.3 - 12.4 fL 06/22/2018 5:36 AM DIRECTOR OF TEENAGE ACTIVITIES [facility] NEUTROPHILS 62 % 06/22/2018 5:36 AM [facility] LYMPHOCYTES 25 % 06/22/2018 5:36 AM [facility] MONOCYTES 9 % 06/22/2018 5:36 AM [facility] EOSINOPHILS 3 % 06/22/2018 5:36 AM [facility] BASOPHILS 0 % 06/22/2018 5:36 AM [facility] IMMATURE GRANULOCYTES 1 % 06/22/2018 5:36 AM [facility] Comment:IG (Immature Granulo cyte) count includes Metamyelocytes, Myelocytes, and Promyelocytes NEUTROPHIL ABSOLUTE 4.37 1.90 - 7.00 K/uL 06/22/2018 5:36 AM [facility] LYMPHOCYTE ABSOLUTE 1.77 0.70 - 4.50 K/uL 06/22/2018 5:36 AM [facility] MONOCYTE ABSOLUTE 0.65 0.10 - 1.30 K/uL 06/22/2018 5:36 AM DIRECTOR OF TEENAGE ACTIVITIES [facility] EOSINOPHIL ABSOLUTE 0.22 0.00 - 0.70 K/uL 06/22/2018 5:36 AM [facility] BASOPHILS ABSOLUTE 0.02 0.00 - 0.20 K/uL 06/22/2018 5:36 AM DIRECTOR OF TEENAGE ACTIVITIES [facility] IMMATURE GRANULOCYTES ABSOLUTE 0.04(H) 0.00 - 0.03 K/uL 06/22/2018 5:36 AM [facility] Blood Collection / Unknown 06/22/2018 5:10 AM DIRECTOR OF TEENAGE ACTIVITIES 06/22/2018 5:20 AM DIRECTOR OF TEENAGE ACTIVITIES Soto Porras MD HEMATOLOGY ORDERAB LES [facility] - [facility] CLIA# [id number] 5 [facility] [address] * (ABNORMAL) COMPREHENSIVE METABOLIC PANEL (06/22/2018 5:10 AM DIRECTOR OF TEENAGE ACTIVITIES) SODIUM 139 136 - 145 mmol/L 06/22/2018 5:54 AM [facility] POTASSIUM 3.8 3.5 - 5.0 mmol/L 06/22/2018 5:54 AM DIRECTOR OF TEENAGE ACTIVITIES [facility] CHLORIDE 102 98 - 107 mmol/L 06/22/2018 5:54 AM DIRECTOR OF TEENAGE ACTIVITIES [facility] CO2 25 22 - 29 mmol/L 06/22/2018 5:54 AM [facility] CALCIUM 8.9 8.6 - 10.2 mg/dL 06/22/2018 5:54 AM [facility] BUN 11 6 - 20 mg/dL 06/22/2018 5:54 AM DIRECTOR OF TEENAGE ACTIVITIES [facility] CREATININE 0.71 0.51 - 0.95 mg/dL 06/22/2018 5:54 AM [facility] GLUCOSE 84 74 - 99 mg/dL 06/22/2018 5:54 AM DIRECTOR OF TEENAGE ACTIVITIES [facility] TOTAL PROTEIN 6.3(L) 6.7 - 8.6 g/dL 06/22/2018 5:54 AM DIRECTOR OF TEENAGE ACTIVITIES [facility] ALBUMIN 3.5 3.5 - 5.2 g/dL 06/22/2018 5:54 AM DIRECT[facility] OF TEENAGE ACTIVITIES [facility] BILIRUBIN TOTAL 0.6 0.3 - 1.2 mg/dL 06/22/2018 5:54 AM [facility] ALKALINE PHOSPHATASE 90 35 - 104 U/L 06/22/2018 5:54 AM [facility] AST 31 <33 U/L 06/22/2018 5:54 AM [facility] ALT 28 <34 U/L 06/22/2018 5:54 AM [facility] GFR >60 >=60 mL/min/1.7 3 sq meter 06/22/2018 5:54 AM [facility] Comment: eGFR has not been validated for [...] mL/min/1.7 3 sq meter 06/22/2018 5:54 AM [facility] [employer] [facility] ANION GAP 12 8 - 16 mmol/L 06/22/2018 5:54 AM [facility] [employer] [facility] Blood Collection / Unknown 06/22/2018 5:10 AM DIRECTOR OF TEENAGE ACTIVITIES 06/22/2018 5:20 AM DIRECTOR OF TEENAGE ACTIVITIES [facility] - 06/22/2018 5:54 AM DIRECTOR OF TEENAGE ACTIVITIES Samples containing indocyanine green cause interferences on Total and/or Direct Bilirubin and must not be measured. Soto Porras MD CHEMISTRY ORDERABL ES [facility] [employer] [facility]# [id number] 5 [facility] [address] [place] [address] * IR VENOUS ACCESS (06/19/2018 10:00 AM DIRECTOR OF TEENAGE ACTIVITIES) Narrative 06/19/2018 10:01 AM DIRECTOR OF TEENAGE ACTIVITIES Order information only. ??Exam was auto-finalized. ?? Soto Porras MD IR ORDERABLES * C-REACTIVE PROTEIN (06/18/2018 11:14 AM DIRECTOR OF TEENAGE ACTIVITIES) CRP 2.0 <5.0 mg/L 06/18/2018 7:38 PM [facility] Blood Venipuncture / Unknown 06/18/2018 11:14 AM DIRECTOR OF TEENAGE ACTIVITIES 06/18/2018 11:26 AM DIRECTOR OF TEENAGE ACTIVITIES Soto Porras MD CHEMISTRY ORDERABL ES [facility] [employer] SERVICES [facility] CLIA# [id number] 5 [facility] [place] [address] * (ABNORMAL) COMPREHENSIVE METABOLIC PANEL (06/18/2018 11:14 AM DIRECTOR OF TEENAGE ACTIVITIES) SODIUM 138 136 - 145 mmol/L 06/18/2018 12:07 PM [facility] POTASSIUM 4.0 3.5 - 5.0 mmol/L 06/18/2018 12:07 PM [facility] - [facility] CHLORIDE 102 98 - 107 mmol/L 06/18/2018 12:07 PM DIRECTOR OF TEENAGE ACTIVITIES [facility] CO2 25 22 - 29 mmol/L 06/18/2018 12:07 PM [facility] - [facility] CALCIUM 9.4 8.6 - 10.2 mg/dL 06/18/2018 12:07 PM [facility] - [facility] BUN 9 6 - 20 mg/dL 06/18/2018 12:07 PM [facility] - [facility] CREATININE 0.69 0.51 - 0.95 mg/dL 06/18/2018 12:07 PM [facility] - [facility] GLUCOSE 157(H) 74 - 99 mg/dL 06/18/2018 12:07 PM DIRECTOR OF TEENAGE ACTIVITIES [facility] TOTAL PROTEIN 7.4 6.7 - 8.6 g/dL 06/18/2018 12:07 PM DIRECTOR OF TEENAGE ACTIVITIES [employer] - [facility] ALBUMIN 4.1 3.5 - 5.2 g/dL 06/18/2018 12:07 PM DIRECTOR OF TEENAGE ACTIVITIES [facility] BILIRUBIN TOTAL 0.3 0.3 - 1.2 mg/dL 06/18/2018 12:07 PM [facility] ALKALINE PHOSPHATASE 84 35 - 104 U/L 06/18/2018 12:07 PM [facility] AST 11 <33 U/L 06/18/2018 12:07 PM [facility] ALT 6 <34 U/L 06/18/2018 12:07 PM [facility] GFR >60 >=60 mL/min/1.7 3 sq meter 06/18/2018 12:07 PM [facility] Comment: eGFR has not been validated for [...] mL/min/1.7 3 sq meter 06/18/2018 12:07 PM [facility] ANION GAP 11 8 - 16 mmol/L 06/18/2018 12:07 PM [facility] Blood Venipuncture / Unknown 06/18/2018 11:14 AM DIRECTOR OF TEENAGE ACTIVITIES 06/18/2018 11:26 AM [facility] - 06/18/2018 12:07 PM [facility] Samples containing indocyanine green cause interferences on Total and/or Direct Bilirubin and must not be measured. Soto Porras MD CHEMISTRY ORDERABL ES [facility]# [id number] [address] [place] [address] * (ABNORMAL) CBC WITH DIFFERENTIAL (06/18/2018 11:14 AM DIRECTOR OF TEENAGE ACTIVITIES) WBC 9.2 4.0 - 9.8 K/uL 06/18/2018 11:36 AM [facility] RBC 3.95 3.90 - 4.90 M/uL 06/18/2018 11:36 AM [facility] HEMOGLOBIN 13.3 11.8 - 14.8 g/dL 06/18/2018 11:36 AM [facility] HEMATOCRIT 39.1 35.5 - 44.0 % 06/18/2018 11:36 AM [facility] MCV 99.0 82.0 - 99.0 fL 06/18/2018 11:36 AM [facility] [employer] [facility] MCH 33.7(H) 27.2 - 32.6 pg 06/18/2018 11:36 AM [facility] [employer] [facility] - [facility] MCHC 34.0 31.5 - 35.5 g/dL 06/18/2018 11:36 AM [facility] [facility] RDW 12.2 11.5 - 14.5 % 06/18/2018 11:36 AM [facility] RDW-STDEV 44.7 37.1 - 48.7 fL 06/18/2018 11:36 AM [facility] OF TEENAGE ACTIVITIES [facility] PLATELETS 226 140 - 350 K/uL 06/18/2018 11:36 AM [facility] [facility] - [facility] MPV 10.8 9.3 - 12.4 fL 06/18/2018 11:36 AM [facility] [employer] LAB[facility] [employer] - [facility] NEUTROPHILS 91 % 06/18/2018 11:36 AM [facility] - [facility] LYMPHOCYTES 8 % 06/18/2018 11:36 AM [facility] MONOCYTES 1 % 06/18/2018 11:36 AM [facility] EOSINOPHILS 0 % 06/18/2018 11:36 AM [facility] [employer] - [facility] BASOPHILS 0 % 06/18/2018 11:36 AM DIRECTOR OF TEENAGE ACTIVITIES [facility] [employer] - [facility] IMMATURE GRANULOCYTES 1 % 06/18/2018 11:36 AM DIRECTOR OF TEENAGE ACTIVITIES [facility] Comment:IG (Immature Granulo cyte) count includes Metamyelocytes, Myelocytes, and Promyelocytes NEUTROPHIL ABSOLUTE 8.35(H) 1.90 - 7.00 K/uL 06/18/2018 11:36 AM [facility] - [facility] LYMPHOCYTE ABSOLUTE 0.71 0.70 - 4.50 K/uL 06/18/2018 11:36 AM [facility] MONOCYTE ABSOLUTE 0.09(L) 0.10 - 1.30 K/uL 06/18/2018 11:36 AM [facility] LABORATORY [facility] EOSINOPHIL ABSOLUTE 0.00 0.00 - 0.70 K/uL 06/18/2018 11:36 AM [facility] BASOPHILS ABSOLUTE 0.01 0.00 - 0.20 K/uL 06/18/2018 11:36 AM [facility] - [facility] [place] IMMATURE GRANULOCYTES ABSOLUTE 0.06(H) 0.00 - 0.03 K/uL 06/18/2018 11:36 AM [facility] LABORATORY [facility] Blood Venipuncture / Unknown 06/18/2018 11:14 AM [facility] OF TEENAGE ACTIVITIES 06/18/2018 11:26 AM DIRECTOR OF TEENAGE ACTIVITIES Soto Porras MD HEMATOLOGY ORDERAB LES [facility] [employer] [facility] CLIA# [id number] [address] [place] [address] * AFB CULTURE WITH STAIN (06/17/2018 2:49 PM DIRECTOR OF TEENAGE ACTIVITIES) CULTURE No acid fast bacilli isolated. 08/03/2018 9:44 AM [facility] [employer] [facility] AFB STAIN No acid fast bacilli observed 08/03/2018 9:44 AM [facility] [employer] [facility] Tissue (Face) Collection / Unknown 06/17/2018 2:49 PM DIRECTOR OF TEENAGE ACTIVITIES 06/17/2018 4:52 PM DIRECTOR OF TEENAGE ACTIVITIES Narrative [facility] - 08/03/2018 9:44 AM DIRECTOR OF TEENAGE ACTIVITIES Culture is held for a minimum of 6 weeks. Dylon Fung MD MICROBIOLOGY - GENER AL ORDERABLES [facility] CLIA# [id number] [address] [place] [address] * (ABNORMAL) ANAEROBIC/AEROBIC CULTURE W GRAM STAIN (06/17/2018 2:49 PM DIRECTOR OF TEENAGE ACTIVITIES) CULTURE STAPHYLOCOCCUS AUREUS(A) SUMA MCG/ML 06/22/2018 7:48 AM [facility] CULTURE Scant growth Normal skin senia SUMA MCG/ML 06/22/2018 7:48 AM [facility] CULTURE 1+ or few Cutibacterium acnes(A) 06/22/2018 7:48 AM [facility] Comment:Anaerobe therapy rec ommendation:?? metronidazole.?? Alternatively:?? ampicillin/sulbactam or clindamycin. GRAM STAIN No organisms observed 06/22/2018 7:48 AM [facility] GRAM STAIN 1+ (Rare or Occasional) WBC 06/22/2018 7:48 AM [facility] Tissue (Face) Collection / Unknown 06/17/2018 2:49 PM DIRECTOR OF TEENAGE ACTIVITIES 06/17/2018 4:52 PM [facility]OR OF TEENAGE ACTIVITIES Narrative Organism Antibiotic Method Susceptibility Staphylococcus aureus [...] Fung MD MICROBIOLOGY - GENER AL ORDERABLES [facility]# [id number] [address] [place] [address] * (ABNORMAL) ANAEROBIC/AEROBIC CULTURE W GRAM STAIN (06/17/2018 2:43 PM DIRECTOR OF TEENAGE ACTIVITIES) CULTURE STAPHYLOCOCCUS AUREUS(A) SUMA MCG/ML 06/23/2018 8:17 AM DIRECTOR OF TEENAGE ACTIVITIES [facility] CULTURE STAPHYLOCOCCUS EPIDERMIDIS(A) SUMA MCG/ML 06/23/2018 8:17 AM [facility] GRAM STAIN Gram stain not performed; Quantity not sufficient 06/23/2018 8:17 AM [facility] Comment:Cannot preform gram stain on Device; Gram Stain credited. Hardware/Foreign Body/Implant (Other, specify) Collection / Unknown 06/17/2018 2:43 PM [facility] OF TEENAGE ACTIVITIES 06/17/2018 4:52 PM [facility] ACTIVITIES Comment:[employer] WT FUNGUS S TAIN IF POSSIBLE - WOULD NOT ALLOW THIS TEST TO BE SELECTED [facility] - 06/23/2018 8:17 AM DIRECTOR OF TEENAGE ACTIVITIES Unable to preform AFB Culture and Fungus [...] Fung MD MICROBIOLOGY - GENER AL ORDERABLES [facility]# [id number] [address] [place] [address] * FUNGUS CULTURE, OTHER (06/17/2018 2:17 PM DIRECTOR OF TEENAGE ACTIVITIES) CULTURE No fungus isolated. 07/15/2018 8:30 AM DIRECTOR OF TEENAGE ACTIVITIES [facility] Lesion/Drainage Fluid (Ear, left) Collection / Unknown 06/17/2018 2:17 PM [facility] OF TEENAGE ACTIVITIES 06/17/2018 2:51 PM DIRECTOR OF TEENAGE ACTIVITIES [facility] - 07/15/2018 8:30 AM DIRECTOR OF TEENAGE ACTIVITIES Culture is held for a minimum of 4 weeks. Dylon Fung MD MICROBIOLOGY - GENER AL ORDERABLES Performing Organization Address City/[facility]/ZIP Co de Phone Number [facility]# [id number] [address] [place] [address] * AFB CULTURE WITH STAIN (06/17/2018 2:16 PM DIRECTOR OF TEENAGE ACTIVITIES) CULTURE No acid fast bacilli isolated. 08/03/2018 9:44 AM DIRECTOR OF TEENAGE ACTIVITIES [facility] AFB STAIN No acid fast bacilli observed 08/03/2018 9:44 AM [facility] Lesion/Drainage Fluid (Ear, left) Collection / Unknown 06/17/2018 2:16 PM DIRECT[employer] TEENAGE ACTIVITIES 06/17/2018 2:51 PM DIRECTOR OF TEENAGE ACTIVITIES [facility] [employer] [facility] - 08/03/2018 9:44 AM DIRECTOR OF TEENAGE ACTIVITIES Culture is held for a minimum of 6 weeks. Dylon Fung MD MICROBIOLOGY - GENER AL ORDERABLES [facility]# [id number] [address] [place] [address] * (ABNORMAL) ANAEROBIC/AEROBIC CULTURE W GRAM STAIN (06/17/2018 2:15 PM DIRECTOR OF TEENAGE ACTIVITIES) CULTURE STAPHYLOCOCCUS AUREUS(A) SUMA MCG/ML 06/22/2018 2:34 PM [facility] CULTURE 3 to 4+ or numerous Normal skin senia 06/22/2018 2:34 PM [facility] CULTURE PREVOTELLA BIVIA(A) SUMA MCG/ML 06/22/2018 2:34 PM DIRECTOR OF TEENAGE ACTIVITIES [facility] Comment:Anaerobe therapy rec ommendation:?? metronidazole.?? Alternatively:?? ampicillin/sulbactam or clindamycin. GRAM STAIN No organisms observed 06/22/2018 2:34 PM DIRECTOR OF TEENAGE ACTIVITIES [facility] GRAM STAIN No WBC 06/22/2018 2:34 PM [facility] Lesion/Drainage Fluid (Ear, left) Collection / Unknown 06/17/2018 2:15 PM [employer]OR OF TEENAGE ACTIVITIES 06/17/2018 2:51 PM DIRECTOR OF TEENAGE ACTIVITIES Narrative Organism Antibiotic Method Susceptibility Staphylococcus aureus [...] Fung MD MICROBIOLOGY - GENER AL ORDERABLES [facility] CLIA# [id number] [address] [place] [address] * PATHOLOGY (06/17/2018 2:09 PM DIRECTOR OF TEENAGE ACTIVITIES) CASE REPORT Surgical Pathology Report ? Case: [id number] ? Authorizing Provider: ??Dylon Fung MD ?Collected: ? 06/17/2018 02:09 PM ? Ordering Location: ? [facility] ?Received: ?06/17/2018 02:57 PM ? Operating Room ? Pathologist: ? Melinda Gomez MD ? Specimen: ?Ear, left, Left external auditory canal ? 06/21/2018 1:47 PM [facility] FINAL DIAGNOSIS Skin, left external auditory canal, excisional biopsy: - Pedunculated skin with marked acute and chronic inflammation, consistent with polypoid granulation tissue. 06/21/2018 1:47 PM [facility] IMEN DESCRIPTION Left external auditory canal. 06/21/2018 1:47 PM [facility] OPERATIVE PROCEDURE Oromaxillofacial device removal left, left TMJ hardware removal, myringoplasty, temporomandibular joint prosthetic removal, cyst lesion mass excision-excision left ear canal lesion. 06/21/2018 1:47 PM [facility] CLINICAL DIAGNOSIS Left ear mass. 06/21/2018 1:47 PM [facility] CLINICAL INFORMATION 06/21/2018 1:47 PM [facility] GROSS DESCRIPTION Received in one container labeled Austin Kayla, left external auditory canal are two pieces of red to pink-griggs tissue measuring 0.4 and 0.7 cm in greatest dimension. The larger piece is bisected. The tissue is entirely submitted in cassette A1. TOSHIA/dinorah 06/21/2018 1:47 PM [facility] MICROSCOPIC DESCRIPTION Received is one slide labeled [id number] and Dainaalice Kayla. The specimen consists of a pedunculated structure [...] with polypoid granulation tissue. 06/21/2018 1:47 PM [facility] COMMENT Special stain and/or immunohistochemical results are interpreted with controls that demonstrate appropriate staining reactions. Note on use of immunocytochemistry reagents: This test was developed and its performance characteristic determined by [facility], Department of Laboratory Medicine. It has not [...] WF, WB and WH are performed by [address], [address]. All other case types are performed by [address] [facility], [address]. 06/21/2018 1:47 PM [facility] Tissue (Ear, left) Collection / Unknown 06/17/2018 2:09 PM DIRECTOR OF TEENAGE ACTIVITIES 06/17/2018 2:57 PM DIRECTOR OF TEENAGE ACTIVITIES Dylon Fung MD PATHOLOGY/CYTOLOGY O HITESH Performing Organization Address [facility]/ZIP Co de Phone Number [facility]# [id number] [address] [place] [address] * POC , URINE (06/17/2018 12:52 PM DIRECTOR OF TEENAGE ACTIVITIES) HCG QUAL URINE Negative Negative 06/17/2018 3:25 PM DIRECTOR OF TEENAGE ACTIVITIES [facility] Urine 06/17/2018 12:5 2 PM DIRECTOR OF TEENAGE ACTIVITIES 06/17/2018 3:25 PM DIRECTOR OF TEENAGE ACTIVITIES Dylon Fung MD POINT OF CARE TESTIN G Performing Organization Address [facility] Co de Phone Number [facility]# [id number] [address] [place] [address] * EDUCATION ANESTHESIA (ADULT) - DARRELL (06/11/2018 3:18 PM DIRECTOR OF TEENAGE ACTIVITIES) Education Name ANESTHESIA (ADULT) DARRELL EDUCATION INTERFACE Education URL [email or web address] DARRELL EDUCATION INTERFACE EDUCATION ACCESS CODE [id number] DARRELL EDUCATION INTERFACE EDUCATION ISSUE DATE Jun 11, 2018 DARRELL EDUCATION INTERFACE EDUCATION START DATE DARRELL EDUCATION INTERFACE EDUCATION COMPLETED DATE This program was not started and flagged as on: Jul 12, 2018 DARRELL EDUCATION INTERFACE EDUCATION EXPIRATION DATE Jul 11, 2018 DARRELL EDUCATION INTERFACE EDUCATION MESSAGE EVENT DARRELL EDUCATION INTERFACE 06/11/2018 3:18 PM DIRECTOR OF TEENAGE ACTIVITIES Dylon Fung MD EXTERNAL EDUCATION O HITESH Performing Organization Address [facility] Co de Phone Number DARRELL EDUCATION INTERFACE documented in this encounter Visit Diagnoses Diagnosis Seizure disorder Unspecified epilepsy without mention of intractable epilepsy Major depressive disorder Major depressive disorder, single episode, unspecified TMJ disease Temporomandibular joint disorders, unspecified documented in this encounter Administered Medications Inactive Administered Medications - up to 3 most recent administrations Medication Order MAR Action Action Date Dose Rate Site ceFAZolin (ANCEF) 2,000 mg in dextrose (iso-osmotic) 100 mL IVPB (PREMIX) 2,000 mg, IV, EVERY 8 HOURS, First dose on Dhara 06/17/18 at 2100, Until Discontinued, Routine, Antibiotic Indication: Surgical prophylaxis Restarted 06/18/2018 5:59 AM DIRECTOR OF TEENAGE ACTIVITIES 200 mL/hr Rate Verify 06/18/2018 5:55 AM DIRECTOR OF TEENAGE ACTIVITIES 200 mL/hr New Bag 06/18/2018 5:54 AM DIRECTOR OF TEENAGE ACTIVITIES 2,000 mg 200 mL/hr dexamethasone (DECADRON) injection 8 mg 8 mg, IV, EVERY 8 HOURS, 3 doses, First dose on Dhara 06/17/18 at 2200, Last dose on Thu06/18/18 at 1400, Routine Given 06/18/2018 2:20 PM [employer] OF TEENAGE ACTIVITIES 8 mg Given 06/18/2018 5:55 AM DIRECTOR OF TEENAGE ACTIVITIES 8 mg Given 06/17/2018 11:32 PM DIRECTOR OF TEENAGE ACTIVITIES 8 mg dextrose 5 % in water 250 mL [...] Septic Arthritis New Bag 06/23/2018 8:03 AM DIRECTOR OF TEENAGE ACTIVITIES 1,000 mg 100 mL/hr New Bag 06/22/2018 10:47 AM DIRECTOR OF TEENAGE ACTIVITIES 1,000 mg 100 mL/hr New Bag 06/21/2018 9:39 AM DIRECTOR OF TEENAGE ACTIVITIES 1,000 mg 100 mL/hr fentaNYL PF (SUBLIMAZE) 50 mcg/mL injection 25 mcg 25 mcg, IV, POST-PROCEDURE Q 3 MINUTES PRN, Starting on Dhara 06/17/18 at 1236, Until Dhara 06/17/18 at 1819, Pain, For pain 1-3, Routine, PACU Given 06/17/2018 5:15 PM [employer] OF TEENAGE ACTIVITIES 25 mcg Given 06/17/2018 5:09 PM DIRECTOR OF TEENAGE ACTIVITIES 25 mcg Given 06/17/2018 5:00 PM DIRECTOR OF TEENAGE ACTIVITIES 25 mcg gabapentin (NEURONTIN) capsule 600 mg 600 mg, Oral, TWO TIMES DAILY, First dose on Thu06/18/18 at 0000, Until Discontinued, Routine Given 06/23/2018 8:01 AM DIRECTOR OF TEENAGE ACTIVITIES 600 mg Given 06/22/2018 8:23 PM DIRECTOR OF TEENAGE ACTIVITIES 600 mg Given 06/22/2018 8:58 AM DIRECTOR OF TEENAGE ACTIVITIES 600 mg heparin injection 5,000 Units 5,000 Units, subCUT, EVERY 8 HOURS, First dose on 06/19/18 at 1430, Until Discontinued, Routine heparin, porcine (pf) 10 unit/mL IV syringe 50-150 Units 50-150 Units, IV, EVERY 12 HOURS, First dose on 06/19/18 at 0900, Until Discontinued, Routine Given 06/22/2018 8:22 PM DIRECTOR OF TEENAGE ACTIVITIES 50 Units Given 06/21/2018 9:38 PM DIRECTOR OF TEENAGE ACTIVITIES 50 Units Given 06/21/2018 8:34 AM DIRECTOR OF TEENAGE ACTIVITIES 50 Units heparin, porcine (pf) 10 unit/mL IV syringe 50-150 Units 50-150 Units, IV, SEE ADMIN INSTRUCTIONS, Starting on 06/19/18 at 0854, Until Thu06/23/18 at 1927, Routine Given 06/22/2018 5:10 AM DIRECTOR OF TEENAGE ACTIVITIES 50 Units HYDROmorphone (DILAUDID) 2 mg/mL injection 0.5 mg 0.5 mg, IV, POST-PROCEDURE Q 5 MINUTES PRN, Starting on Dhara 06/17/18 at 1655, Until Dhara 06/17/18 at 1819, Pain, Moderate, For pain scale 4-6, Routine, PACU Given 06/17/2018 5:29 PM [employer] OF TEENAGE ACTIVITIES 0.5 mg Given 06/17/2018 5:25 PM DIRECTOR OF TEENAGE ACTIVITIES 0.5 mg Given 06/17/2018 5:21 PM DIRECTOR OF TEENAGE ACTIVITIES 0.5 mg HYDROmorphone (DILAUDID) 2 mg/mL injection 0.8 mg 0.8 mg, IV, POST-PROCEDURE Q 5 MINUTES PRN, Starting on Dhara 06/17/18 at 1655, Until Dhara 06/17/18 at 1819, Pain, Severe, For pain scale 7-10, Routine, PACU Given 06/17/2018 5:57 PM DIRECTOR OF TEENAGE ACTIVITIES 0.8 mg ibuprofen (ADVIL;MOTRIN) 100 mg/5 mL oral suspension 600 mg 600 mg, Oral, EVERY 6 HOURS PRN, Starting on Dhara 06/17/18 at 1551, Until Thu06/23/18 at 1927, Other (See Comment), For pain secondary to inflammation, Routine lactated Ringers solution IV, at 125 mL/hr, POST-PROCEDURE CONTINUOUS, Starting on Dhara 06/17/18 at 1245, Until Thu06/23/18 at 1927, Routine, PACU [facility] 06/17/2018 12:45 PM DIRECTOR OF TEENAGE ACTIVITIES 125 mL/hr lamoTRIgine (LaMICtal) tablet 100 mg 100 mg, Oral, TWO TIMES DAILY, First dose on Thu06/18/18 at 0000, Until Discontinued, Routine Given 06/23/2018 8:01 AM DIRECTOR OF TEENAGE ACTIVITIES 100 mg Given 06/22/2018 8:24 PM DIRECTOR OF TEENAGE ACTIVITIES 100 mg Given 06/22/2018 9:02 AM DIRECTOR OF TEENAGE ACTIVITIES 100 mg levETIRAcetam (KEPPRA) tablet 1,000 mg 1,000 mg, Oral, TWO TIMES DAILY, First dose on Thu06/18/18 at 0000, Until Discontinued, Routine Given 06/23/2018 8:01 AM DIRECTOR OF TEENAGE ACTIVITIES 1,000 mg Given 06/22/2018 8:24 PM [employer]OR OF TEENAGE ACTIVITIES 1,000 mg Given 06/22/2018 9:02 AM DIRECTOR OF TEENAGE ACTIVITIES 1,000 mg morphine 4 mg/mL injection 4 mg 4 mg, IV, EVERY 2 HOURS PRN, 6 doses, Starting on Dhara 06/17/18 at 1552, Until Thu06/23/18 at 1927, Pain (See admin instructions), Pain, Severe, Routine Given 06/18/2018 7:50 AM DIRECTOR OF TEENAGE ACTIVITIES 4 mg Given 06/18/2018 1:35 AM DIRECTOR OF TEENAGE ACTIVITIES 4 mg Given 06/17/2018 11:15 PM DIRECTOR OF TEENAGE ACTIVITIES 4 mg naloxone (NARCAN) 0.4 mg/mL injection 0.1 mg 0.1 mg, IV, SEE ADMIN INSTRUCTIONS, Starting on Dhara 06/17/18 at 1549, Until Thu06/23/18 at 1927, Routine Neomycin-Bacitracin Zn-Polymyxin (NEOSPORIN) topical ointment 1 Packet Topical, TWO TIMES DAILY, First dose on Thu06/20/18 at 2100, Until Discontinued, Routine Given 06/23/2018 8:14 AM DIRECTOR OF TEENAGE ACTIVITIES 1 Packet Face Given 06/22/2018 8:18 PM [employer] OF TEENAGE ACTIVITIES 1 Packet Ot her (Comment) Given 06/22/2018 9:00 AM DIRECTOR OF TEENAGE ACTIVITIES 1 Packet Fa ce ofloxacin (OCUFLOX) 0.3 % ophthalmic solution 1 Drop 1 Drop, Left Ear, FOUR TIMES DAILY, First dose on Thu06/17/18 at 1300, Until Discontinued, Routine Given 06/23/2018 12:07 PM DIRECTOR OF TEENAGE ACTIVITIES 1 Drop Given 06/23/2018 8:07 AM DIRECTOR OF TEENAGE ACTIVITIES 1 Drop Given 06/22/2018 8:19 PM DIRECTOR OF TEENAGE ACTIVITIES 1 Drop ondansetron (ZOFRAN) 4 mg/2 mL injection 4 mg 4 mg, IV, EVERY 6 HOURS PRN, Starting on Thu06/17/18 at 1554, Until Thu06/18/18 at 1036, Nausea/Emesis, Routine Given 06/18/2018 6:49 AM DIRECTOR OF TEENAGE ACTIVITIES 4 mg Given 06/17/2018 10:57 PM DIRECTOR OF TEENAGE ACTIVITIES 4 mg ondansetron (ZOFRAN) 4 mg/2 mL injection 4 mg 4 mg, IV, POST-PROCEDURE Q 5 MINUTES PRN, 2 doses, Starting on Thu06/17/18 at 1654, Until Thu06/17/18 at 1819, Nausea/Emesis, Routine, PACU Given 06/17/2018 5:55 PM DIRECTOR OF TEENAGE ACTIVITIES 4 mg ondansetron (ZOFRAN) 4 mg/2 mL injection 4 mg 4 mg, IV, EVERY 4 HOURS PRN, Starting on Thu06/18/18 at 1045, Until Thu06/23/18 at 1927, Nausea/Emesis, Routine Given 06/23/2018 8:07 AM [employer]OR OF TEENAGE ACTIVITIES 4 mg Given 06/22/2018 8:14 PM [employer]OR OF TEENAGE ACTIVITIES 4 mg Given 06/22/2018 8:08 AM DIRECTOR OF TEENAGE ACTIVITIES 4 mg oxyCODONE (ROXICODONE) oral solution 7.5 mg 7.5 mg, Oral, EVERY 4 HOURS PRN, Starting on Thu06/17/18 at 1551, Until Thu06/23/18 at 1927, Pain (See admin instructions), Routine Given 06/23/2018 4:58 PM [employer] OF TEENAGE ACTIVITIES 7.5 mg Given 06/23/2018 1:05 PM DIRECTOR OF TEENAGE ACTIVITIES 7.5 mg Given 06/23/2018 9:08 AM DIRECTOR OF TEENAGE ACTIVITIES 7.5 mg pantoprazole (PROTONIX) tablet 40 mg 40 mg, Oral, DAILY BEFORE BREAKFAST, First dose on Thu06/18/18 at 0600, Until Discontinued, Routine Given 06/23/2018 8:10 AM DIRECTOR OF TEENAGE ACTIVITIES 40 mg Given 06/21/2018 5:09 AM DIRECTOR OF TEENAGE ACTIVITIES 40 mg Given 06/20/2018 6:39 AM DIRECTOR OF TEENAGE ACTIVITIES 40 mg piperacillin-tazobactam (ZOSYN) 3.375 gram in dextrose (iso-osmotic) 50 mL IVPB 3.375 Gram, IV, EVERY 6 HOURS, 12 doses, First dose on Thu06/18/18 at 1200, Last dose on 06/21/18 at 0600, Routine, Antibiotic Indication: Osteomyelitis / Septic Arthritis New Bag 06/21/2018 5:17 AM [employer] OF TEENAGE ACTIVITIES 3.375 Grams 100 mL/hr New Bag 06/20/2018 11:50 PM DIRECTOR OF TEENAGE ACTIVITIES 3.375 Grams 100 mL/hr Rate Verify 06/20/2018 5:04 PM DIRECTOR OF TEENAGE ACTIVITIES 100 mL/hr primidone (MYSOLINE) tablet 50 mg 50 mg, Oral, EVERY 12 HOURS (BlD), 1 dose, First dose on Thu06/18/18 at 0000, Routine Given 06/17/2018 11:47 PM DIRECTOR OF TEENAGE ACTIVITIES 50 mg prochlorperazine (COMPAZINE) injection 5 mg 5 mg, IV, ONE TIME ONLY, 1 dose, On Thu06/18/18 at 0930, Routine Given 06/18/2018 9:37 AM [employer] OF TEENAGE ACTIVITIES 5 mg prochlorperazine maleate (COMPAZINE) tablet 10 mg 10 mg, Oral, EVERY 6 HOURS PRN, Starting on Dhara 06/17/18 at 1554, Until Thu06/23/18 at 1927, Nausea/Emesis, Routine Given 06/21/2018 10:56 AM DIRECTOR OF TEENAGE ACTIVITIES 10 mg sodium chloride 0.9 % 250 mL flush bag 25 mL 25 mL, IV, SEE ADMIN INSTRUCTIONS, Starting on 06/19/18 at 0854, Until Thu06/23/18 at 1927, Routine New Bag 06/21/2018 3:19 PM [employer] OF TEENAGE ACTIVITIES 25 mL Rate Change 06/20/2018 10:03 PM [employer] OF TEENAGE ACTIVITIES 20 mL/hr Bag Switched 06/20/2018 10:03 PM DIRECTOR OF TEENAGE ACTIVITIES 25 mL 10 mL/hr sodium chloride flush injection 10-30 mL 10-30 mL, IV, EVERY 12 HOURS, First dose on 06/19/18 at 0900, Until Discontinued, Routine Given 06/22/2018 8:25 PM [employer] OF TEENAGE ACTIVITIES 10 mL Given 06/21/2018 9:39 PM DIRECTOR OF TEENAGE ACTIVITIES 10 mL Given 06/21/2018 9:00 AM DIRECTOR OF TEENAGE ACTIVITIES 30 mL sodium chloride flush injection 10-30 mL 10-30 mL, IV, SEE ADMIN INSTRUCTIONS, Starting on 06/19/18 at 0854, Until 06/23/18 at 1927, Routine traZODone (DESYREL) tablet 100 mg 100 mg, Oral, DAILY AT BEDTIME, First dose on Dhara 06/17/18 at 2115, Until Discontinued, Routine Given 06/22/2018 8:25 PM [employer] TEENAGE ACTIVITIES 100 mg Given 06/21/2018 9:39 PM [employer] OF TEENAGE ACTIVITIES 100 mg Given 06/20/2018 9:52 PM DIRECTOR OF TEENAGE ACTIVITIES 100 mg vancomycin 1500 mg in sodium chloride 0.9% 300 mL IVPB 1,500 mg, IV, EVERY 12 HOURS, First dose on Thu06/18/18 at 1700, Until Discontinued, Routine, Antibiotic Indication: Osteomyelitis / Septic Arthritis New Bag 06/19/2018 4:19 AM [employer] OF TEENAGE ACTIVITIES 1,500 mg 200 mL/hr Restarted 06/18/2018 5:17 PM DIRECTOR OF TEENAGE ACTIVITIES 200 mL/hr Restarted 06/18/2018 5:15 PM DIRECT[employer] OF TEENAGE ACTIVITIES 200 mL/hr documented in this encounter Active and Recently Administered Medications Times are shown in DIRECTOR OF TEENAGE ACTIVITIES. Scheduled Medication Order 06/21/2018 06/22/2018 06/23/2018 dexamethasone [...] RN) 1047 (New Bag - Provider: Soledad Muñiz RN)1117 (Stopped - Provider: Soledad Muñiz RN) 0803 (New Bag - Provider: Shasta Linton, CHIN)0833 (Stopped - Provider: Shasta Linton, RN) flu vaccine quadrivalent 2018- (6 mo+)(PF) (FLULAVAL/FLUARIX QUAD) 60 mcg/0.5 mL syringe 60 mcg 60 mcg (0.5 mL), IM, ONE TIME ONLY, 1 dose, On 06/21/18 at 1900, Routine 0800 (Refused - Provider: Soledad Muñiz, CHIN) flu vaccine quadrivalent 2017- (6 mo+)(PF) (FLULAVAL/FLUARIX QUAD) 60 mcg/0.5 mL syringe 60 mcg 60 mcg (0.5 mL), IM, ONE TIME ONLY, 1 dose, On Thu06/22/18 at 1330, Routine 1330 (Refused - Provider: Soledad Muñiz, RN) gabapentin (NEURONTIN) capsule 600 mg 600 mg, Oral, TWO TIMES DAILY, First dose on Thu06/18/18 at 0000, Until Discontinued, Routine 0824 (Given - Provider: Shannon Avila RN)2136 (Given - Provider: Demetris Rosenbaum RN) 0858 (Given - Provider: Soledad Muñiz, CHIN)2022 (Given - Provider: Demetris Rosenbaum RN) 0801 (Given - Provider: Shasta Linton, CHIN) heparin injection 5,000 Units 5,000 Units, subCUT, EVERY 8 HOURS, First dose on 06/19/18 at 1430, Until Discontinued, Routine 0500 (Refused - Provider: Demetris Rosenbaum RN)1300 (Refused - Provider: Shannon Avila RN)2100 (Refused - Provider: Demetris Rosenbaum RN) 0500 (Refused - Provider: Demetris Rosenbaum, CHIN)1300 (Refused - Provider: Soledad Muñiz RN)2100 (Refused - Provider: Demetris Rosenbaum RN) 0500 (Refused - Provider: Shasta Linton, CHIN)1300 (Refused - Provider: Shasta Linton, RN) heparin, porcine (pf) 10 unit/mL IV syringe 50-150 Units 50-150 Units, IV, EVERY 12 HOURS, First dose on 06/19/18 at 0900, Until Discontinued, Routine 0834 (Given - Provider: Shannon Avila RN)213 (Given - Provider: Demetris Rosenbaum RN) 0900 [...] RN)2143 (Given - Provider: Demetris Rosenbaum RN) 901 (Given - Provider: Soledad Muñiz RN)2023 (Given - Provider: Demetris Rosenbaum RN) 08 (Given - Provider: Shasta Linton RN) levETIRAcetam (KEPPRA) tablet 1,000 mg 1,000 mg, Oral, TWO TIMES DAILY, First dose on Thu06/18/18 at 0000, Until Discontinued, Routine 0824 (Given - Provider: Shannon Avila RN) 40 (Given - Provider: Demetris Rosenbaum RN)901 (Given - Provider: Soledad Muñiz RN)2023 (Given - Provider: Demetris Rosenbaum RN) 08 (Given - Provider: Shasta Linton RN) naloxone (NARCAN) 0.4 mg/mL injection 0.1 mg 0.1 mg, IV, SEE ADMIN INSTRUCTIONS, Starting on Dhara 06/17/18 at 1549, Until Thu06/23/18 at 1927, Routine Neomycin-Bacitracin Zn-Polymyxin (NEOSPORIN) topical ointment 1 Packet Topical, TWO TIMES DAILY, First dose on Thu06/20/18 at 2100, Until Discontinued, Routine 09 (Given - Provider: Shannon Avila RN)2143 (Given - Provider: Demetris Rosenbaum RN - Comment: as ordered) 09 (Given - Provider: Soledad Muñiz RN)2017 (Given - Provider: Demetris Rosenbaum RN - Comment: As ordered) 08 (Given - Provider: Shasta Linton CHIN) ofloxacin (OCUFLOX) 0.3 % ophthalmic solution 1 Drop 1 Drop, Left Ear, FOUR TIMES DAILY, First dose on Dhara 06/17/18 at 1300, Until Discontinued, Routine 0831 (Given - Provider: Shannon Avila RN)1206 (Given - Provider: Shannon Avila RN)1709 (Given - Provider: Shannon Avila RN)2138 (Given - Provider: Demetris Rosenbaum RN) 0900 (Given - Provider: Soledad Muñiz RN)1235 (Given - Provider: Soledad Muñiz RN)1740 (Given - Provider: Soledad Muñiz, RN)2019 (Given - Provider: Demetris Rosenbaum RN) 0807 (Given - Provider: Shasta Linton RN)1207 (Given - Provider: Shasta Linton RN) pantoprazole (PROTONIX) tablet 40 mg 40 mg, Oral, DAILY BEFORE BREAKFAST, First dose on Thu06/18/18 at 0600, Until Discontinued, Routine 0509 (Given - Provider: Demetris Rosenbaum RN) 0900 (Not Given - Provider: Soledad Muñiz RN - Reason: Clarify-Other (Comment) - Comment: Cannot be crushed, paged) 0810 (Given - Provider: Shasta Linton RN) piperacillin-tazobactam (ZOSYN) 3.375 gram in dextrose (iso-osmotic) 50 mL IVPB (COMPLETED) 3.375 Gram, IV, EVERY 6 HOURS, 12 doses, First dose on Thu06/18/18 at 1200, Last dose on Thu06/21/18 at 0600, Routine, Antibiotic Indication: Osteomyelitis / Septic Arthritis 0020 (Stopped - Provider: Demetris Rosenbaum RN)0517 (New Bag - Provider: Demetris Rosenbaum RN)0547 (Stopped - Provider: Raquel Farfan RN) sodium chloride 0.9 % 250 mL flush bag 25 mL 25 mL, IV, SEE ADMIN INSTRUCTIONS, Starting on 06/19/18 at 0854, Until 06/23/18 at 1927, Routine 1519 (New Bag - [...] 1330 (Refused - Provider: Soledad Muñiz RN) traZODone (DESYREL) tablet 100 mg 100 mg, [...] Routine 0511 (Given - Provider: Demetris Rosenbaum RN)0907 (Given - Provider: Shannon Avila RN)202 (Given - Provider: Demetris Rosenbaum RN) 002 (Given - Provider: Demetris Rosenbaum RN)0808 (Given [...] Rosenbaum RN)0909 (Given - Provider: Shannon Avila RN)1517 (Given - Provider: Shannon Avila RN)2139 (Given - Provider: Demetris Rosenbaum RN) 0042 (Given - Provider: Demetris Rosenbaum RN)0508 (Given - Provider: Demetris Rosenbaum RN)0900 (Given - Provider: Soledad Muñiz RN)1234 (Given - Provider: Soledad Muñiz RN)1613 (Given - Provider: Soledad Muñiz RN)2019 (Given - Provider: Demetris Rosenbaum RN) 0022 (Given - Provider: Demetris Rosenbaum RN)0459 (Given - Provider: Demetris Rosenbaum RN)0908 (Given - Provider: Shasta Linton RN)1305 (Given - Provider: Shasta Linton RN)1658 (Given - Provider: Shasta Linton RN) prochlorperazine maleate (COMPAZINE) tablet 10 mg 10 mg, Oral, EVERY 6 HOURS PRN, Starting on Dhara 06/17/18 at 1554, Until 06/23/18 at 1927, Nausea/Emesis, Routine 1056 (Given - Provider: Shannon Avila RN) documented in this encounter Care Teams Boot Maker Relationship Specialty Start Date End Date Sg Richards MD [address] [place] [address] PCP - General Internal Medicine 06/10/17 08/13/21 documented as of this encounter
--- OUTSIDE RECORDS SUMMARY | 2024-07-16 13:01 | XMS_ITS | Encounter Summary ---
Author Organization [facility] Address [address] [place] [address] Care Team Providers Care Printing Supplies Sales Representative Name Role Phone Kyle Rodríguez MD Primary Care Provider [phone] Encounter Details Date Type Department Care Team (Late st Contact Info) Description 11/03/2012 11:45 AM CDT - 11/03/2012 2:15 PM CDT Surgery [facility] Operating Room [address] [place] [address] [phone] Dylon Fung MD [address] [facility] [address] [place] [address] RETIRED AURICULAR CYST LESION MASS EXCISION Surgery Details Date/Time Status Location OR Service Patient Class Case Class Case Type Trauma Case? 11/03/2012 11:45 AM Posted [facility] OR MAIN OR 22 Oralmaxillofacial Surgical OP/Extende d Care Elective No Panel 1 Procedure LRB Anes Op Region Wound Class Comments RETIRED AURICULAR CYST LESION MASS EXCISION Left Monitored Anesthetic Care Clean Contaminated-II HARDWARE REMOVAL General Clean-I BONE GRAFT N/A General Clean-I Panel 2 Procedure LRB Anes Op Region Wound Class Comments CYST LESION MASS EXCISION N/A General Shannan n-I Surgeon Surgeon Role Service Panel Haroon Dumont, MATILDE Fellow Oralmaxillofac ial 1 Lucía Gabriel MD Primary Otorhinolaryngology 2 Dylon Fung MD Primary Oralmaxillofacial 1 Case Notes WORK COMP, APPROVE BY HERNESTO, CPT: 61294,14198 documented in this encounter Social History Tobacco [...] Sign Reading Time Taken Comments Blood Pressure 121/70 11/03/2012 11:21 AM CDT Pulse 50 11/03/2012 11:21 AM CDT Temperature 37.4 ??C (99.4 ??F) 11/03/2012 11:21 AM C DT Respiratory Rate 16 11/03/2012 11:21 AM CDT Oxygen Saturation - - Inhaled Oxygen Concentration - - Weight 97.5 kg (215 lb) 11/03/2012 11:21 AM CDT Height 162.6 cm (5' 4 ) 10/26/2012 11:07 AM CDT Body Mass Index 36.9 10/26/2012 11:07 AM CDT documented in this encounter Discharge Instructions * Discharge Instructions* Madeline Almanzar, RN - 11/03/2012 7:24 PM CDT SAFETY For the next 24 [...] or ointment such as Vaseline. Prescriptions given. Pain medication Percocet given @ 7:40pm. Maybe taken again @ 11:40pm, if needed. DIET Clear liquids, advance to soft mechanical/minimal [...] direct stream to wound; no wound immersion. FOLLOW-UP Call the office at [phone] to make an appointment for 7 days after surgery. Once you are home, if you develop any of the following symptoms, call your physician. Difficulty in breathing, persistent nausea or vomiting, profuse bleeding at incision site, pain that is unusual, temperature greater than 101 degrees. If you cannot contact your physician, call or come to the Emergency Room at [place] ([phone]) or the nearest Emergency Room. In an emergency, Call 911 documented in this encounter Medications at Time of Discharge Medication Sig Dispensed Refills Start Date End Date traZODone (DESYREL) 100 mg Oral tablet Take 100 mg by mouth daily at bedtime. gabapentin (NEURONTIN) 600 mg Oral tablet Take 1,200 mg by mouth 3 times daily. buPROPion SR 12 hour (WELLBUTRIN-SR) 150 mg Oral tablet Take 150 mg by mouth 2 times daily. cephALEXin (KEFLEX) 500 mg Oral capsule Take 1 Cap by mouth 4 times daily for 7 days. 28 Cap 0 11/03/2012 11/10/2012 clindamycin HCl (CLEOCIN) 300 mg Oral Cap Take 1 Cap by mouth 4 times daily for 21 days. 84 Cap 0 11/03/2012 11/24/2012 ciprofloxacin-dexametha sone (CIPROFLOXACIN-DEXAMETH ASONE) 0.3-0.1 % OT DrpS Administer 4 Drops in left ear 2 times daily for 10 days. 7.5 mL 0 11/03/2012 11/13/2012 oxyCODONE-acetaminophen (PERCOCET) 5-325 mg Oral tablet Take 1 Tab by mouth every 4 hours as needed for Pain, Moderate. 30 Tab 0 11/03/2012 06/21/2018 HYDROcodone-acetaminoph en (NORCO) 5-325 mg Oral tablet Take 1 [...] Take 20 mg by mouth daily. 06/21/2018 HYDROcodone-acetaminoph en (NORCO) 7.5-325 mg Oral Tab Take 2 Tabs by mouth every 4 hours as needed. 05/25/2015 documented as of this encounter H&P Notes * Shelly Lombardi - 11/12/2012 4:53 AM CDT * Haroon Dumont DMD - 11/03/2012 11:57 AM CDT I have reviewed the last H&P and examined the patient today and there are no changes. * Lucía Gabriel MD - 11/03/2012 11:56 AM CDT I have reviewed the last H&P and assessed the patient today and there are no changes. CV-RRR PULM-CTA ABD-SOFT NEURO-INTACT GROSSLY Plan from me is to remove the EAC lesion on the left. documented in this encounter Consult Notes * Scanning, Stl - 11/10/2012 3:09 PM CDT Electronically signed by Interface, [facility] Pipelines Superintendent Incoming at 11/10/2012 3:09 PM CDT documented in this encounter OR Notes * OR Anesthesia - Scanning, Stl - 11/10/2012 3:09 PM CDT Electronically signed by Interface, [facility] Pipelines Superintendent Incoming at 11/10/2012 3:09 PM CDT * Operative Report - Haroon Dumont DMD - 11/04/2012 1:26 AM CDT [place], [place] [address] Operative Report CSN: [id number] DATE OF SERVICE: 11/03/2012 SURGEON Dylon Fung DDS, PREOPERATIVE DIAGNOSIS Left auricular fistula. POSTOPERATIVE DIAGNOSIS Left auricular fistula. OPERATION NAME 1. Left auricular fistula excision. 2. Hardware removal. 3. Cadaver bone, Dermagraft. ANESTHESIA General. PERMASTONE MECHANIC Haroon Dumont DMD ESTIMATED BLOOD LOSS 20 mL. FLUIDS 1 L crystalloid. COMPLICATIONS None. SPECIMEN Left auricle lesion. DISPOSITION Stable to PACU. INDICATIONS This is a 37-year-old female, well known to Dr. Fung with a history of TMJ reconstruction status post dog molding with multiple surgical interventions. The patient has had chronic fistula formationwith excessive granulation tissue working with Dr. Gabriel from ENT and recommended exploration with potential removal of hardware. All risks, benefits, and alternatives were discussed with the patient and elected for surgical intervention. Dr. Gabriel will dictate his portion of the surgery, which was first in this case. PROCEDURE The patient was deemed fit for general anesthesia in the preoperative holding area. The patient wasbrought back to the operative room and placed in supine position. Following induction of general anesthesia via nasoendotracheal intubation, the patient was prepped and draped in typical oral maxillofacial surgical fashion for TMJ surgery. 3 mL of 1% lidocaine with 1:100,000 epinephrine was infiltrated in the area of surgery. Antibiotic ointment and cotton was placed in the left external auditorycanal after Dr. Gabriel performed his excision of granulation tissue. After adequate amount of time, 15 blade was used for skin and subcutaneous tissue incision through the prior preauricular incision. Hemostasis was obtained with judicious use of Bovie tip cautery. Sharp and blunt dissection through scar tissue down to the pseudocapsule and TMJ glenoid prosthesis was performed. Of note, the lacrimal probe from the external auditory canal. Fistula tract to the posterior portion of the high molecular weight polyethylene glenoid component. At this point, it is noted that there were 2 nonrestorable sutures, which were removed with DeBakey pickup. Excess granulation tissue was debrided and removed and assessment of the glenoid component noted that one loose gold alloy screw was present and removed. All other screws were stable without any mobility. Copious amounts of irrigation with Bacitracin solution was used. Isolation of the postauricular fistulous tract, after being excised was placed with reconstituted lamellar bone deep to the fistula and AlloDerm was placed over this bone between the fistulous tract and the lamellar bone. Once in place, it was placed passively over the glenoid fossa component and attention was turned to closure where reapproximation of the deep wound edges with 4-0 Vicryl suture in a layered fashion was performed. Subcuticular 4-0 Vicryl sutures were reapp roximated the skin edges and cutaneous 5-0 Prolene continuous suture reapproximated the superficiallayer. Hemostasis was obtained. The wound was cleaned and dried and bacitracin was applied. The patient was then cleaned and dried and turned over to Anesthesia where she was extubated successfully and brought to recovery room in stable condition. JM:SAMI DID: [id number] Dictated by: Haroon Dumont DMD * Sabrina-OP - Madeline Almanzar RN - 11/03/2012 6:39 PM CDT Prescriptions called into [facility] pharmacy . Verified with pharmacist. * Sabrina-OP - Lexi Hutchison RN - 11/03/2012 4:46 PM CDT Percocet script destroyed due to pt stating percocet does not work for her and new script for norcoprovided by . * OR Anesthesia - Soto Jamil MD - 11/03/2012 4:01 PM CDT Phase I Postanesthesia Evaluation Including Modified Archie Score Patient seen and evaluated: Modified Archie Score: Score: 10 (11/03/121444) COMMENTS: No apparent Anesthesia related complications RESPIRATORY FUNCTION: Respiration: able to breath and cough freely (11/03/121444) [2=able to breathe and cough freely, 1=dyspnea, limited breathing or tachypnea, 0=apnea or mechanicventilator] O2 Saturation: able to maintain O2 saturation greater than 92% on room air (11/03/121444) [2=able to maintain O2 saturation greater than 92% on room air, 1=needs O2 inhalation to maintain O2 saturation greater than 90%, 0=O2 saturation less than 90% even with O2 supplement] Resp: 12 (11/03/121544)SpO2: 98 % (11/03/121544) CARDIOVASCULAR FUNCTION: Heart Rate (Monitored): 77 bpm (11/03/121544) BP: 112/68 mmHg (11/03/121544) Circulation: BP within 20% of preanesthetic level (11/03/121444) [2=BP within 20% of preanesthetic level, 1=BP within 20-49% of preanesthetic level, 0=BP within 50%of preanesthetic level] MENTAL STATUS, NEURO, ACTIVITY: Consciousness: fully awake (11/03/12 1445) [2=fully awake, 1=arousable on calling, 0=not responding] Activity: able to move 4 extremities voluntarily or on command (11/03/12 1445) [2=able to move 4 extremities voluntarily or on command, 1=able to move 2 extremities voluntarily or on command, 0=unable to move extremities voluntarily or on command] TEMPERATURE: Temp: 99.9 ??F (37.7 ??C) (11/03/12 1420) PAIN: Pain Rating: Rest: 10 (11/03/12 1551) NAUSEA AND VOMITING: POSTOPERATIVE HYDRATION: Intake/Output Summary (Last 24 hours) at 11/03/12 1601 Last data filed at 11/03/12 1503 Gross per 24 hour Intake 100 ml Output 0 ml Net 100 ml Soto Jamil MD 11/03/2012 4:01 PM * Sabrina-OP - Lexi Hutchison RN - 11/03/2012 3:47 PM CDT Offered pt oral narcotics for pain earlier. Pt stated that Percocet does not work for her. NotifiedDr. Fung. Verbal order received from Dr. Dumont for Empire 2 tablets PO. * Sabrina-OP - Lexi Hutchison RN - 11/03/2012 2:[address] Lin updated that pt is still c/o pain at a 9. Orders received for toradol 30 mg IV. No further narcotics ordered. * Sabrina-OP - Lexi Hutchison RN - 11/03/2012 2:[address] Lin at bedside and orders received for DENNYS protocol. Pt to remain in PACU for one hour after last IV narcotic and to remain in Phase II for 3 hours. * Operative Report - Lucía Gabriel MD - 11/03/2012 2:26 PM CDT [place], [place] [address] Operative Report CSN: [id number] DATE OF SERVICE: 11/03/2012 SURGEON Lucía Gabriel MD PREOPERATIVE DIAGNOSIS Left ear canal lesion. POSTOPERATIVE DIAGNOSIS Left ear canal lesion. OPERATION NAME Excision left ear canal lesion under operative microscope. ANESTHESIA General. COMPLICATIONS None. ESTIMATED BLOOD LOSS Nil. 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 This has been excised twice previously and recurred. It was selected to removethis again. Dr. Fung will also be dictating a separate procedure of exploration of the joint. Therisk of pain, lesion, need for further surgery, infection, fail to control her symptoms, damage to the ear canal and damage to tympanic membrane were reviewed. She wished to go ahead. PROCEDURE IN DETAIL The patient was brought to the operating room and positioned in supine position. Following induction of general anesthesia, she was intubated nasally. The ear was prepped and draped in usual fashion on the left side. The base of the granulation type lesion was injected with 1% lidocaine and 100:000 epinephrine. Lesion was excised with a streak Jenn blade under the operative microscope and approximately 7 mm base of this was cauterized with a insulator bipolar cautery. Minimum bleeding was noted. Lacrimal probe was used to recannulate what appeared to be a fistula tract. The lacrimal probe was removed and the antibiotic ointment was placed after visualization down the ear canal revealed no evidence of injury to the tympanic membrane or other ear canal structures. She was then turned over to the Oral Surgery Team which will dictate the op note. SHH:MEDQ DID: [id number] Dictated by: Lucía Gabriel MD * Sabrina-OP - Heather Bashir RN - 11/03/2012 1:01 PM CDT 2% lidocaine with epinephrene 1 : 100,000 4 mls used for local injection at operative site. * OR Anesthesia - Katiuska Lin MD - 11/03/2012 12:09 PM CDT Pre-Anesthesia Evaluation - Long Form 11/03/2012 12:09 PM Name: Amita Avila Age: 37 y.o. Sex: female CSN: [id number] Procedure: Procedure(s): ORAL CYST LESION MASS EXCISION CYST LESION MASS EXCISION Surgeons/Assistants: Surgeon(s) and Role: Panel 1: * Dylon Fung MD - Primary Panel 2: * Lucía Gabriel MD - Primary Allergies Allergen Reactions ??? Erythromycin Seizure ??? Other Drug (Unclassified Drug) Other (See Comments) States ilozone caused eyes to roll back in head & stopped breathing Prescriptions prior to admission Medication Sig Dispense Refill ??? traZODone (DESYREL) 100 mg Oral tablet Take 100 mg by mouth daily at bedtime. ??? gabapentin (NEURONTIN) 600 mg Oral tablet Take 1,200 mg by mouth 3 times daily. ??? buPROPion SR 12 hour (WELLBUTRIN-SR) 150 mg Oral tablet Take 150 mg by mouth 2 times daily. ??? meclizine (ANTIVERT) 12.5 mg Oral tablet Take 25 mg by mouth every 6 hours. ??? piroxicam (FELDENE) 20 mg Oral capsule Take 20 mg by mouth daily. ??? amoxicillin-clavulanate (AUGMENTIN) 875-125 mg Oral tablet Take 1 Tab by mouth every 12 hours. 28 Tab 0 ??? amitriptyline (ELAVIL) 10 mg Oral tablet Take 10 mg by mouth daily at bedtime. Takes six tablets every every evening for sleep ??? HYDROcodone-acetaminophen (NORCO) 7.5-325 mg Oral Tab Take 2 Tabs by mouth every 4 hours as needed. Current Facility-Administered Medications Medication Dose Route Frequency Provider Last Rate Last Dose ??? lactated ringers solution IV Pre-Proc Continuous Patrice Rodriguez MD 150 mL/hr at 11/03/12 1150 1,000 mL at 11/03/12 1150 ??? ceFAZolin (ANCEF) IVPB 2,000 mg 2,000 mg IV Pre-Proc Once Patrice Rodriguez MD 2,000 mg at 11/03/12 1203 ??? morphine injection 4 mg 4 mg IV q 3 hour PRN Haroon Dumont DMD ??? oxyCODONE-acetaminophen (PERCOCET) 5-325 mg per tablet 1 Tab 1 Tab Oral q 4 hour PRN Haroon Dumont DMD There are no active problems to display for this patient. Past Medical History Diagnosis Date ??? Anxiety ??? Arthritis left jaw ??? Depression ??? 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 Difficult intubation small mouth opening ??? Temporomandibular joint disorders, unspecified ??? Vertigo ??? CAD (coronary artery disease) December 2011 MS ??? Unspecified adverse effect of anesthesia Wakes during surgery, reports cardiac arrest ??? Obstructive sleep apnea (adult) (pediatric) unable to tolerate Past Surgical History Procedure Date ??? Pr reconstr jaw,full,endo implnt from 2000 to 2008 total of [address] Dylon Fung ??? Pr exc skin benig 0.6-1cm trunk,arm,leg 08/13/2012 CYST LESION MASS EXCISION performed by Lucía Gabriel MD at [facility] ??? Pr exc skin benig 0.6-1cm trunk,arm,leg 09/15/2012 CYST LESION MASS EXCISION performed by Lucía Gabriel MD at [facility] History Substance Use Topics ??? Smoking status: Former Smoker Types: Cigarettes Quit date: 07/09/2012 ??? Smokeless tobacco: Not on file ??? Alcohol Use: No No family history on file. Previous Anesthesia Problems/Concerns: No anesthesia problems/complications History of PONV No Review of Systems Cardiovascular: h/o MS, no sequela. Respiratory: negative Gastroenterology: negative DENNYS, refuses CPAP. Severe TMJ. PHYSICAL EXAM BP 121/70 Pulse 50 Temp(Src) 99.4 ??F (37.4 ??C) (Temporal) Resp 16 Ht 5' 4 (1.626 m) Wt215 lb (97.523 kg) BMI 36.90 kg/m2 Weight: Weight: 215 lb (97.523 kg) (11/03/12 1121) Height: Ht Readings from Last 1 Encounters: 10/26/12 5' 4 (1.626 m) BMI: Body mass index is 36.90 kg/(m^2). Airway: supple: Airway Class: IV (only hard palate visible); Mouth Opening 1 Finger Breadth Lungs: clear to auscultation bilaterally, normal respiratory effort Heart: regular rate and rhythm, S1, S2 normal, no murmur, click, rub or gallop Neuro: alert, oriented x 3, no defects noted in general exam. Vascular Access: Peripheral Line LABS Lab Results Component Value Date WBC 7.0 07/23/2012 HEMOGLOBIN 13.1 10/26/2012 HEMOGLOBIN 13.9 08/09/2012 HEMATOCRIT 40.2 10/26/2012 HEMATOCRIT 41.4 08/09/2012 PLATELETS 224 07/23/2012 MCV 97.0 07/23/2012 Lab Results Component Value Date SODIUM 139 07/23/2012 POTASSIUM 4.1 07/23/2012 CHLORIDE 106 07/23/2012 CO2 23 07/23/2012 CALCIUM 9.1 07/23/2012 BUN 12 07/23/2012 CREATININE 0.75 07/23/2012 GLUCOSE 86 07/23/2012 No results found for this basename: INR, PT, PROTIMEPOC Lab Results Component Value Date POC , URINE Negative 09/15/2012 No results found for this basename: glucpoc EKG: normal sinus rhythm Other Studies/Considerations: None Postop pain management discussed yes Smoking/Tobacco Counseling: None Recommendations: None [facility] report reviewed. No interval changes in patient's history or review of systems.Yes ASA Physical Status: ASA 3 - Patient with moderate systemic disease with functional limitations I have seen and examined this patient and confirm that all data is current and accurate. Yes Choice of Anesthesia/Anesthesia Plan: Proceed and General I have discussed the anesthetic options and the risks/benefits with the patient/family. Questions have been solicited and answered. Yes Katiuska Lin MD * Operative Report - Haroon Dumont DMD - 11/03/2012 11:58 AM CDT Operative Report : [facility] Patient: Amita Avila / 37 y.o. / female : 1975 Date: 11/03/2012 CSN: [id number] Preoperative Diagnosis: Left auricular fistula Postoperative Diagnosis: Same Procedure Performed: Left auricle fistual excision Hardware removal Cadaver bone/dermal graft Surgeon: Dylon Fung MD Industrial Controls Technician: Haroon Dumont DMD Surgical Staff: Transportation Dispatcher Scrub Computer Aided Design Technician Anesthesia: General Estimated Blood Loss: 20cc Fluids: 1L Complications: None Specimen: Left auricle lesion Disposition: Stable to PACU Implants: * No implants in log * documented in this encounter Miscellaneous Notes * Scanned Form - Scanning, St - 11/20/2012 10:39 AM CDT Electronically signed by [employer] [facility] Pipelines Superintendent Incoming at 11/20/2012 10:39 AM CDT * Scanned Form - Scanning, St - 11/10/2012 3:09 PM CDT Electronically signed by [employer], [facility] Pipelines Superintendent Incoming at 11/10/2012 3:09 PM CDT * Scanned Form - Scanning, St - 11/10/2012 3:09 PM CDT Electronically signed by [employer], [facility] Pipelines Superintendent Incoming at 11/10/2012 3:09 PM CDT * Scanned Form - Scanning, St - 11/10/2012 3:09 PM CDT Electronically signed by [employer], [facility] Pipelines Superintendent Incoming at 11/10/2012 3:09 PM CDT * Scanned Form - Scanning, St 11/10/2012 3:09 PM CDT Electronically signed by [employer], [facility] Pipelines Superintendent Incoming at 11/10/2012 3:09 PM CDT * Patient Instructions - Scanning, St - 11/10/2012 3:09 PM CDT * Care Plan - Madeline Almanzar RN - 11/03/2012 5:08 PM CDT Potential for pain related to surgical/procedural intervention Interventions: Assess level of pain/comfort utilizing verbal/nonverbal pain scales; assess culturalor rastafarian indicators attached to pain; administer pain medications as prescribed; utilize non-pharmacologic pain control and comfort measures Expected Outcome: Patient demonstrates and reports adequate pain control Outcome Met: Pain addressed. Knowledge deficit related to post-discharge care Interventions: Assess learning needs and willingness to learn; give clear, concise explanations of the care required post-discharge; address patient/family questions and concerns; provide teaching asindicated Expected Outcome: Patient and/or family/significant other demonstrate(s) behaviors required for performance of activities enhancing recovery post-discharge Outcome Met: Pt's questions addressed and answered. * Care Plan - Lexi Hutchison RN - 11/03/2012 4:44 PM CDT Potential for pain related to surgical/procedural intervention Interventions: Assess level of pain/comfort utilizing verbal/nonverbal pain scales; assess culturalor rastafarian indicators attached to pain; administer pain medications as prescribed; utilize non-pharmacologic pain control and comfort measures Expected Outcome: Patient demonstrates and reports adequate pain control Outcome Met: yes, pts pain is a 7/10 but pt states pain is getting to be tolerable and pt is able to rest and smiles with conversation. Potential for alteration in thermoregulatory, circulatory, respiratory [...] status compatible with preoperative status Outcome Met: yes, pt vss. Pt has had no episodes of desaturation while in PACU. * Care Plan - Liudmila Diaz RN - 11/03/2012 11:25 AM CDT Potential for anxiety related to surgical intervention Interventions: convey caring/supportive attitude; offer emotional support as needed; provide comfort measures (warm blanket, pillow, quiet environment); allow patient opportunity to verbalize concerns/fears/questions; explore coping behaviors; allow age-specific/special needs family support Expected Outcome: Patient will demonstrate decreased anxiety or adaptive coping strategies Outcome Met: comfort measures offered Knowledge deficit related to procedure/environment Interventions: Assess learning needs and willingness to learn; give clear, concise explanations of the environment and sequence of events surrounding the periop experience; address patient/family questions and concerns; provide teaching as indicated, provide teaching related to postoperative pain assessment utilizing pain scales Expected Outcome: Patient verbalizes or demonstrates awareness/understanding of surgery and perioperative experience Outcome Met: pre op protocols discussed questions answered pt understands documented in this encounter Plan of Treatment Not on file documented as of this encounter Procedures Procedure Name Priority Date/Time Associated Diagnosis Comments PATHOLOGY Routine 11/03/2012 3:08 PM CDT BONE GRAFT 11/03/2012 11:30 AM CDT LEFT AURICLE FASTULA Case Notes WORK COMP, APPROVE BY HERNESTO, CPT: 08505,59066 HARDWARE REMOVAL 11/03/2012 11:3 0 AM CDT LEFT AURICLE FASTULA Case Notes WORK COMP, APPROVE BY HERNESTO, CPT: 13707,28806 RETIRED AURICULAR CYST LESION MASS EXCISION 11/03/2012 11:30 AM CDT LEFT AURICLE FASTULA Case Notes WORK COMP, APPROVE BY HERNESTO, CPT: 06060,71631 CYST LESION MASS EXCISION 11/03/2012 11:30 AM CDT LEFT AURICLE FASTULA Case Notes WORK COMP, APPROVE BY HERNESTO, CPT: 59091,55508 POC , URINE Routine 11/03/2012 10:53 AM CDT documented in this encounter Results * PATHOLOGY (11/03/2012 3:08 PM CDT) SURGICAL PATHOLOGY ?[facility] ?[address] ? [place], [place] ??[address] ? Patient: ??CALVIN, AMITA F ? : ??1975 ? Procedure Date: ??11/03/2012 ? Accession Date: ??11/03/2012 ? Case No: ??[id number]- [id number] ? Ordering Dr: ??LUCÍA GABRIEL ? Case type SW is performed by [facility], [address] [place] [address], ? [place], [place] ??[address]; all other case types are performed by [facility] ? [facility], [address], [place] ??[address] ?SURGICAL PATHOLOGY & NON-GYNECOLOGIC CYTOPATHOLOGY REPORT ? DIAGNOSIS ? SKIN AND SOFT TISSUE, LEFT EAR CANAL, EXCISION: ? - GRANULATION TISSUE WITH ACUTE AND CHRONIC INFLAMMATION AND REACTIVE ? CHANGES, CONSISTENT WITH AN ULCER. ? - FUNGAL YEAST PRESENT (SEE DESCRIPTION). ? Specimen Description: ? Left ear canal lesion. ? Operative Procedure: ? Excision lesion. ? Patient Information/History/ Diagnosis: ? Left ear lesion. ? Gross: ? The specimen is received in a single container labeled Amita F. ? Lievers, left ear canal lesion and consists of two pieces of white skin ? and subcutaneous tissue that are 0.7 x 0.5 x 0.2 cm and 1.0 x 0.6 x 0.3 cm. ? The larger piece has a sliver of attached white skin that is 1 x 0.2 cm. No ? discrete lesions are identified. The entire specimen is submitted in ? cassette A1. ? LLH/VIVI 11.03.2012 06:24 pm ? Microscopic: ? The slides are labeled Amita Avila and [id number]. ? The tissue consists predominantly of pieces of loose fibrovascular ? granulation tissue containing numerous neutrophils mixed with chronic ? inflammatory cells and foamy histiocytes. There is also a piece of ? keratinizing squamous epithelium showing areas of parakeratosis and areas ? of reactive changes associated with multiple intraepithelial neutrophils. ? The inflammatory fibrovascular granulation tissue appears to extend to the ? surface of the squamous epithelium, consistent with an ulcer. The ? epithelium shows no significant cytologic atypia. A GMS stain highlights ? multiple small budding yeast along the surface and in the keratin layer of ? the squamous epithelium; accurate identification of the yeast requires ? microbiologic culture. 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 ? This case has been reviewed at the pathology intradepartmental review ? conference. ? JCL/LKP 11.05.2012 07:22 am ? Staging Form: ? No. ? ELECTRONIC SIGNATURE FOR EVA VALDEZ M.D.- 11/07/12 02:43 pm [facility] Specimen of unknown material (specimen) 11/03/2012 3:08 PM CDT Lucía Gabriel MD PATHOLOGY/CYTOLOGY O DARWINERAC[facility]RICK [facility] [employer] [facility] CLIA# [id number] [facility] [address] [place] [address] * POC , URINE (11/03/2012 10:53 AM CDT) , URINE POC Negative Negative [facility] CLIA LICENSE [id number] [facility] 11/03/2012 10:5 3 AM CDT 11/03/2012 10:53 AM CDT Comment:URINE Dylon Fung MD POINT OF CARE TESTIN G [facility]# [id number] [address] [address] documented in this encounter Visit Diagnoses Not on filedocumented in this encounter Administered Medications Inactive Administered Medications - up to 3 most recent administrations Medication Order MAR Action Action Date Dose Rate Site ceFAZolin (ANCEF) IVPB 2,000 mg 2,000 mg, IV, PRE-PROCEDURE ONCE, 1 dose, Starting on Thu11/03/12 at 1151, Until Thu11/03/12 at 1233, Routine New Bag 11/03/2012 12:03 PM CDT 2,000 mg mL/hr fentaNYL PF (SUBLIMAZE) 50 mcg/mL injection 25 mcg 25 mcg, IV, POST-PROCEDURE Q 3 MINUTES PRN, Starting on Thu11/03/12 at 1210, Until Thu11/03/12 at 2223, Pain, Routine, PACU Given 11/03/2012 2:55 PM CDT 25 mcg Given 11/03/2012 2:52 PM CDT 25 mcg Given 11/03/2012 2:47 PM CDT 25 mcg HYDROcodone-acetaminophen (NORCO) 5-325 mg per tablet 2 Tab 2 Tablet, Oral, EVERY 4 HOURS PRN, Starting on Thu11/03/12 at 1540, Until Thu11/03/12 at 2223, Pain, Moderate, Routine Given 11/03/2012 7:36 PM CDT 2 Tablets Given 11/03/2012 3:51 PM CDT 2 Tablets ketorolac (TORADOL) injection 30 mg 30 mg, IV, POST-PROCEDURE ONCE PRN, 1 dose, Starting on Thu11/03/12 at 1457, Until Thu11/03/12 at 2223, Pain, Routine Given 11/03/2012 3:01 PM CDT 30 mg lactated ringers solution IV, at 150 mL/hr, PRE-PROCEDURE CONTINUOUS, Starting on Thu11/03/12 at 1200, Until Thu11/03/12 at 2223, Routine New Bag 11/03/2012 3:03 PM CDT 150 mL/hr New Bag 11/03/2012 11:50 AM CDT 1,000 mL 150 mL/hr H and, Left morphine injection 2 mg 2 mg, IV, POST-PROCEDURE Q 5 MINUTES PRN, 5 doses, Starting on Thu11/03/12 at 1210, Until Thu11/03/12 at 2223, Pain, May give up to a maximum of 8mg in 1 hour., Routine, PACU Given 11/03/2012 2:49 PM CDT 2 m g Given 11/03/2012 2:44 PM CDT 2 mg Given 11/03/2012 2:38 PM CDT 2 mg ondansetron (ZOFRAN) 4 mg/2 mL injection 4 mg 4 mg, IV, POST-PROCEDURE Q 5 MINUTES PRN, 2 doses, Starting on Thu11/03/12 at 1210, Until Thu11/03/12 at 2223, Nausea/Emesis, Routine, PACU Given 11/03/2012 2:30 PM CDT 4 mg documented in this encounter Active and Recently Administered Medications Times are shown in CDT. Scheduled Medication Order 11/01/2012 11/02/2012 11/03/2012 ceFAZolin (ANCEF) IVPB 2,000 mg (COMPLETED) 2,000 mg, IV, PRE-PROCEDURE ONCE, 1 dose, Starting on Thu11/03/12 at 1151, Until Thu11/03/12 at 1233, Routine 1203 (New Bag - Prov ider: Walter Glass CRNA) Continuous Medication Order 11/01/2012 11/02/2012 11/03/2012 lactated ringers solution (CANCELED) IV, at 150 mL/hr, PRE-PROCEDURE CONTINUOUS, Starting on Thu11/03/12 at 1200, Until Thu11/03/12 at 2223, Routine 1150 (New Bag - Prov ider: Liudmila Diaz RN)1503 (New Bag - Provider: Lexi Hutchison RN) PRN Medication Order 11/01/2012 11/02/2012 11/03/2012 fentaNYL PF (SUBLIMAZE) 50 mcg/mL injection 25 mcg (CANCELED) 25 mcg, IV, POST-PROCEDURE Q 3 MINUTES PRN, Starting on Thu11/03/12 at 1210, Until Thu11/03/12 at 2223, Pain, Routine, PACU 1442 (Given - Provid er: Lexi Hutchison RN)1447 (Given - Provider: Lexi Hutcihson RN)1452 (Given - Provider: Lexi Hutchison RN)1455 (Given - Provider: Lexi Hutchison RN) HYDROcodone-acetaminophen (NORCO) 5-325 mg per tablet 2 Tab (CANCELED) 2 Tablet, Oral, EVERY 4 HOURS PRN, Starting on Thu11/03/12 at 1540, Until Thu11/03/12 at 2223, Pain, Moderate, Routine 1551 (Given - Provid er: Lexi Hutchison RN)1936 (Given - Provider: Madeline Almanzar RN) ketorolac (TORADOL) injection 30 mg (CANCELED) 30 mg, IV, POST-PROCEDURE ONCE PRN, 1 dose, Starting on Thu11/03/12 at 1457, Until Thu11/03/12 at 2223, Pain, Routine 1501 (Given - Provid er: Lexi Hutchison RN) morphine injection 2 mg (CANCELED) 2 mg, IV, POST-PROCEDURE Q 5 MINUTES PRN, 5 doses, Starting on Thu11/03/12 at 1210, Until Thu11/03/12 at 2223, Pain, May give up to a maximum of 8mg in 1 hour., Routine, PACU 1430 (Given - Provid er: Lexi Hutchison RN)1438 (Given - Provider: Lexi Hutchison RN)1444 (Given - Provider: Lexi Hutchison RN)1449 (Given - Provider: Lexi Hutchison RN) ondansetron (ZOFRAN) 4 mg/2 mL injection 4 mg (CANCELED) 4 mg, IV, POST-PROCEDURE Q 5 MINUTES PRN, 2 doses, Starting on Thu11/03/12 at 1210, Until Thu11/03/12 at 2223, Nausea/Emesis, Routine, PACU 1430 (Given - Provid er: Lexi Hutchison RN) documented in this encounter Care Teams Printing Supplies Sales Representative Relationship Specialty Start Date End Date Kyle Rodríguez MD [address] [place] [id number] PCP - General Internal Medicine 09/10/12 06/09/17 documented as of this encounter
--- OUTSIDE RECORDS SUMMARY | 2024-07-16 13:01 | XMS_ITS | Encounter Summary ---
Author Organization [facility] Address [address] [place]: [place] [address] Care Team Providers Care Cone Baker Machine Name Role Phone Sg Richards MD Primary Care Provider [phone] Encounter Details Date Type Department Care Team (Late st Contact Info) Description 07/06/2018 Orders Only Initial Department [address] [place]: [place] [address] Provider, Historical Social History Tobacco Use Types Packs/Day Years [...] Procedure Name Priority Date/Time Associated Diagnosis Comments TEST IN QUESTION Routine 07/06/2018 12:0 0 AM CALCULATOR OPERATOR documented in this encounter Results * TEST IN QUESTION (07/06/2018 12:00 AM CALCULATOR OPERATOR) TEST INFORMATION Comment [facility] Comment: Ambiguous Test Order Ambiguous Test Order A specimen was received for microbiology/virology testing with either an incorrect test number or without a written test number. The specimen has been processed according to the default policy listed in the Microbiology Appendix of the Directory of Services. Please use the correct test numbers to assure optimum processing of the specimens. One Specimen Identifier One Specimen Identifier The specimen received included only one patient identifier on the primary collection container. ??Our laboratory accrediting agency states All primary specimen containers must be labeled with 2 identifiers at the time of collection. 07/06/2018 07/06/2018 Narrative [facility] - 07/08/2018 7:12 AM CALCULATOR OPERATOR Performed at: ??01 - [facility] [address] ??[id number] Yard Driver: Wood Sun PhD, Phone: ??[phone] Historical Provider CHEMISTRY ORDERABLES [facility] documented in this encounter Visit Diagnoses Not on filedocumented in this encounter Care Teams Cone Baker Machine Relationship Specialty Start Date End Date Sg Richards MD [address] [place] [phone] PCP - General Internal Medicine 06/10/17 08/13/21 documented as of this encounter
--- OUTSIDE RECORDS SUMMARY | 2024-07-16 13:01 | XMS_ITS | Encounter Summary ---
Author Organization [facility] Address [address] [place] [address] Care Team Providers Care Check Services Clerk Name Role Phone Kyle Rodríguez MD Primary Care Provider [phone] Reason for Visit * Outpatient Services (Routine) - Closed Specialty Diagnoses / Procedures Referred By Contac t Referred To Contact Radiology Diagnoses Temporomandibular joint pain Procedures XR ARTHROGRAM TMJ RIGHT XR ARTHROGRAM TMJ LEFT Dylon Fung MD [address] [address] Referral ID Status Reason Start Date Expiration Date Visits Re quested Visits Authorized [id number] Closed 12/28/2015 01/27/2017 1 1 Encounter Details Date Type Department Care Team (Latest Contact Info) Description 12/28/2015 7:06 AM CDT - 12/28/2015 11:59 PM T Hospital Encounter [facility] [address] [place] [id number] Dylon Fung MD [address] [address] Discharge Disposition: Home or Self [...] Sig Dispensed Refills Start Date End Date levETIRAcetam (KEPPRA) 1,000 mg tablet Take 2,000 [...] Name Priority Date/Time Associated Diagnosis Comments XR ARTHROGRAM TMJ RIGHT Routine 12/28/2015 8:35 AM CDT Temporomandibular joint pain documented in this encounter Results * XR ARTHROGRAM TMJ RIGHT (12/28/2015 8:35 AM CDT) Anatomical Region Laterality Modality Head Computed Radiogr aphy 12/28/2015 8:37 AM CDT Impressions 12/31/2015 9:30 AM CDT IMPRESSION: The TMJ disc is in place and shows no evidence of tear. Severely reduced anterior range of motion of the mandibular condyle with mouth opening. 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 It is not clear if these changes contribute to the decreased anterior range of motion. Narrative 12/31/2015 9:30 AM CDT EXAM: TMJ ARTHROGRAM RIGHT DATE: ??12/28/2015 8:35 AM HISTORY: Temporomandibular joint pain. ??History of prior left TMJ arthroplasty with subsequent overuse and developing pain and limited motion of the right TMJ. TECHNIQUE: After informed consent was obtained, the patient was placed on the fluoroscopic table in the lateral decubitus position, with the head slightly tilted down. Sanitary Engineering Teacher imaging was performed to evaluate mandibular condyle excursion on mouth opening and closing, and to determine ??appropriate needle positioning. The skin in this area was then cleaned and draped in a sterile manner. Following local anesthesia with 1% lidocaine, a 23 gauge needle was placed into the inferior temporomandibular joint space using direct fluoroscopic guidance. About 0.5 cc of contrast was then injected into the joint. A fluoroscopic image was obtained before the needle was removed, then multiple images were obtained during the range of motion of mouth opening and closing. FINDINGS: Preinjection images show normal joint alignment. There is normal bony contour of the mandibular condyle head. Pre and postcontrast images show slight deformity of the joint involving the articular eminence of the temporal bone which shows an atypically vertical orientation. On dynamic imaging with mouth opening this vertically oriented temporal bone appears to inhibit anterior motion. The articular disc is outlined and appears to be in a normal position with the mouth closed. There is a markedly reduced anterior range of motion which somewhat limits visualization of the disc. There is no evidence of extravasation of contrast to suggest a disc tear. Procedure Note Ja Larson MD - 12/31/2015 EXAM: TMJ ARTHROGRAM RIGHT DATE: 12/28/2015 8:35 AM HISTORY: Temporomandibular joint pain. History of prior left TMJ arthroplasty with subsequent overuse and developing pain and limited motion of the right TMJ. TECHNIQUE: After informed consent was obtained, the patient was placed on the fluoroscopic table in the lateral decubitus position, with the head slightly tilted down. Sanitary Engineering Teacher imaging was performed to evaluate mandibular condyle excursion on mouth opening and closing, and to determine appropriate needle positioning. The skin in this area was then cleaned and draped in a sterile manner. Following local anesthesia with 1% lidocaine, a 23 gauge needle was placed into the inferior temporomandibular joint space using direct fluoroscopic guidance. About 0.5 cc of contrast was then injected into the joint. A fluoroscopic image was obtained before the needle was removed, then multiple images were obtained during the range of motion of mouth opening and closing. FINDINGS: Preinjection images show normal joint alignment. There is normal bony contour of the mandibular condyle head. Pre and postcontrast images show slight deformity of the joint involving the articular eminence of the temporal bone which shows an atypically vertical orientation. On dynamic imaging with mouth opening this vertically oriented temporal bone appears to inhibit anterior motion. The articular disc is outlined and appears to be in a normal position with the mouth closed. There is a markedly reduced anterior range of motion which somewhat limits visualization of the disc. There is no evidence of extravasation of contrast to suggest a disc tear. IMPRESSION IMPRESSION: The TMJ disc is in place and shows no evidence of tear. Severely reduced anterior range of motion of the mandibular condyle with mouth opening. 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 It is not clear if these changes contribute to the decreased anterior range of motion. Dylon Fung MD DIAGNOSTIC IMAGING O [facility]IT[facility] documented in this encounter Visit Diagnoses Diagnosis Temporomandibular joint pain Arthralgia of temporomandibular joint documented in this encounter Administered Medications Inactive Administered Medications - up to 3 most recent administrations Medication Order MAR Action Action Date Dose Rate Site iohexol (OMNIPAQUE) 300 mg iodine/mL injection 30 mL 30 mL, See Admin Instructions, INTRA-PROCEDURE ONCE, 1 dose, Starting on Thu12/28/15 at 0836, Until Thu12/28/15 at 0836, Routine Given 12/28/2015 8:36 AM CDT 3 mL Operative Site documented in this encounter Care Teams Check Services Clerk Relationship Specialty Start Date End Date Kyle Rodríguez MD [address] [place] [address] PCP - General Internal Medicine 09/10/12 06/09/17 documented as of this encounter
--- OUTSIDE RECORDS SUMMARY | 2024-07-16 13:01 | XMS_ITS | Encounter Summary ---
Author Organization [facility] Address [address] [place] [address] Care Team Providers Care Fuel Buyer Name Role Phone Sg Richards MD Primary Care Provider [phone] Reason for Visit * Auth/Cert Specialty Diagnoses / Procedures Referred By Contelif t Referred To Contact Procedures DE ARTHROPLASTY TMJ+PROSTHESIS STEROID INJECTION TEMPOROMANDIBULAR JOINT PROSTHETIC PLACEMENT Dylon Fung MD [address] [place] [id number] Referral ID Status Reason Start Date Expiration Date Visits Re quested Visits Authorized [id number] 09/14/2018 1 1 Encounter Details Date Type Department Care Team (Late st Contact Info) Description 11/03/2018 11:45 AM CDT - 11/03/2018 2:15 PM CDT Surgery [facility] Operating Room [address] [place] [id number] Dylon Fung MD [address] [address] STEROID INJECTION Surgery Details Date/Time Status Location OR Service Patient Class Case Class Case Type Trauma Case? 11/03/2018 11:45 AM Posted [facility] OR MAIN OR 23 Oralmaxillofacial Surgical OP/Extende d Care Elective No Panel 1 Procedure LRB Anes Op Region Wound Class Comments STEROID INJECTION N/A General Face Clean-I TEMPOROMANDIBULAR JOINT PROSTHETIC PLACEMENT N/A General Face Clean-I MOBILIZATION, TRIGEMINAL NERVE BLOCK, ABDOMINAL FAT GRAFT NEEDS: TMJ CONCEPT, W DENNYS Surgeon Surgeon Role Service Panel Demetri Rowe DMD Fellow Charlyjeddogilda brown 1 Wanda Peres DDS Fellow Charlymaxsusanamikki elliott 1 Dylon Fung MD Primary Oralmaxillofacial 1 Case Notes [facility] [id number] [facility] [id number] [phone] documented in this encounter Social History Tobacco [...] Sign Reading Time Taken Comments Blood Pressure 115/70 11/03/2018 10:38 AM CDT Pulse 84 11/03/2018 10:38 AM CDT Temperature 36.3 ??C (97.4 ??F) 11/03/2018 10:38 AM C DT Respiratory Rate 18 11/03/2018 10:38 AM CDT Oxygen Saturation 97% 11/03/2018 10:38 AM CDT Inhaled Oxygen Concentration - - Weight 79.8 kg (176 lb) 11/03/2018 10:38 AM CDT Height 162.6 cm (5' 4 ) 11/03/2018 10:38 AM CDT Body Mass Index 30.21 11/03/2018 10:38 AM CDT documented in this encounter Discharge Summaries * Demetri Rowe DMD - 11/04/2018 10:08 AM CDT Patient: Kayla Lamavers / 43 y.o. / female : 1975 CSN: [id number] Admission date: 11/03/2018 Discharge date: 08/13/18 Admitting [...] Your Medications These medications were sent to [id number] - [facility] [address] AT [place] [address] [address], [facility] [address] ?? ibuprofen 800 mg tablet Information about [...] Pat dry. FOLLOW-UP Call the office at [phone] to make an appointment for 7 days after surgery. Once you are home, if you develop any of the following symptoms, call your physician. Difficulty in breathing, persistent nausea or vomiting, profuse bleeding at incision site, pain that is unusual, temperature greater than 101 degrees. If you cannot contact your physician, call or come to the Emergency Room at [facility] ([phone]) or the nearest Emergency Room. In an [...] encounter OR Notes * Operative Report - Demteri Rowe DMD - 11/03/2018 4:13 PM CDT Operative Report Kayla Avila [id number] DOS: 11/03/2018 Pre-operative Diagnosis: * INFECTED LEFT TOTAL TMJ PROSTHESIS * LEFT TMJ DISEASE Post-operative Diagnosis: Same Procedure(s) and Anesthesia Type: * TEMPOROMANDIBULAR JOINT PROSTHETIC PLACEMENT - General * STEROID INJECTION - General * TRIGEMINAL NERVE BLOCK * ABDOMINAL FAT HARVEST Surgeon(s) and Role: * Dylon Fung MD - Primary * Demetri Rowe DMD - Fellow, underwriting assistant * Wanda Peres DDS - Fellow Procedure Start: 1333 Procedure End: 1539 [place]: The anesthesia service transported patient to [...] Implant Name Type Inv. Item Serial No. Boilermaker Lot No. LRB No. Used Action [employer] G-HV [id number] - [id number] Cement [employer] G-HV 40G [id number] [facility] [employer] SURGICAL [id number] N/A 1 Explanted PATIENT FITTED TMJ IMPLANT, MANDIBULAR COMPONENT TMJ CONCEPTS [id number] Left 1 Implanted PATIENT FITTED TMJ IMPLANT, GLENOID FOSSA COMPONENT TMJ CONCEPTS [id number] Left 1 Implanted SCREW TMJ 2.0X6MM - [id number] Screw SCREW TMJ 2.0X6MM -2005 TMJ CONCEPTS LOAD 16 STERILIZED 10/22/2018 Left 4 Implanted SCREW TMJ 2.0X10MM -2009 - [id number] Screw SCREW TMJ 2.0X10MM -2009 TMJ CONCEPTS LOAD 16 STERILIZED 10/22/2018 Left 2 Implanted SCREW TMJ 2.0X12MM - [id number] Screw SCREW TMJ 2.0X12MM -2011 TMJ CONCEPTS LOAD 16 STERILIZED 10/22/2018 Left 5 Implanted Estimated Blood Loss: 150 mL Disposition: extubated, stable to PACU Demetri Rowe DMD * Sabrina-OP - Carla Villatoro RN - 10/25/2018 4:16 PM CDT Images from the original note were not included. [facility] Pre-Procedure Instructions PACE PACE Name: Kayla Avila Age: 43 y.o. Please report to the: [x] Surgery Center [] [facility] (2nd Floor) [] Other: Date [...] surgery. ?? BRING your insurance cards and em[place] driver's license or photo ID. DO NOT [...] pain/comfort utilizing verbal/nonverbal pain scales; assess culturalor amish indicators attached to pain; administer pain medications [...] INSERTION 11/03/2018 11:25 AM CDT Case Notes [facility] [id number] [facility] [phone] [id number] [phone] STEROID INJECTION 11/03/2018 11:25 AM CDT Case Notes [facility] [id number] [facility] [phone] [id number] [phone] [id number] POC , URINE Routine 11/03/2018 11:00 AM CDT documented in this encounter Results * POC , URINE (11/03/2018 11:00 AM CDT) HCG QUAL URINE Negative Negative 11/03/2018 11:00 AM CDT [facility] Urine 11/03/2018 11:0 0 AM CDT 11/03/2018 12:54 PM CDT Dylon Fung MD POINT OF CARE TESTIN G [facility] CLIA# [id number] [address] [place] [address] documented in this encounter Visit Diagnoses Not [...] Given 11/03/2018 6:48 PM CDT 650 mg bupivacaine-EPINEPHrine (PF) (SENSORCAINE MPF WITH EPI) 5 mg, triamcinolone acetonide (KENALOG-40) 40 mg, morphine PF (ASTRAMORPH,DURAMORPH) 1 mg See Admin Instructions, INTRA-PROCEDURE ONCE, 1 dose, Starting on Thu11/03/18 at 1149, Until Thu11/03/18 at 1508, Routine, Intra-op Given 11/03/2018 3:08 PM CDT 3 mL Operative Site buPROPion HCl (WELLBUTRIN SR) SR 12 hour [...] 5:30 AM CDT 2,000 mg 200 mL/hr ciprofloxacin HCl (CILOXAN) 0.3 % ophthalmic solution INTRA-PROCEDURE PRN, Starting on Thu11/03/18 at 1457, Until Thu11/03/18 at 1558, Routine, Intra-op Given 11/03/2018 2:57 PM CDT 1 Drop Opera tive Site dexamethasone (DECADRON) injection 8 mg 8 mg, [...] Dhara 11/04/18 at 0130, Until Discontinued, Routine Given 11/04/2018 8:55 AM CDT 2,000 mg Given 11/04/2018 1:35 AM CDT 2,000 mg lidocaine PF 2 % (XYLOCAINE MPF) injection 0.3 mL 0.3 mL, Infiltration, ONE TIME ONLY, 1 dose, On Thu11/03/18 at 1100, Routine Given 11/03/2018 11:17 AM CDT 0.3 mL [place], Right lidocaine-EPINEPHrine (XYLOCAINE-EPI) 1 %-1:100,000 injection INTRA-PROCEDURE PRN, Starting on Thu11/03/18 at 1332, Until Thu11/03/18 at 1558, Routine, Intra-op Given 11/03/2018 1:32 PM CDT 9 mL Opera tive Site naloxone (NARCAN) 0.4 mg/mL injection 0.1 mg [...] 1555, Until Thu11/04/18 at 1531, Nausea/Emesis, Routine sodium chloride 0.9 % irrigation solution INTRA-PROCEDURE PRN, Starting on Thu11/03/18 at 1357, Until Thu11/03/18 at 1558, Routine, Intra-op Given 11/03/2018 1:57 PM CDT 1,000 mL Opera tive Site [...] Routine 0134 (Given - Provid er: Emili Alvarez, CHIN)0855 (Given - Provider: Enid Jackson, CHIN) ceFAZolin (ANCEF) 2,000 mg in dextrose (iso-osmotic) [...] Alvarez RN)2131 (Rate Verify - Provider: Emili Alvarez, CHIN)2136 (Stopped - Provider: Emili Alvarez, CHIN)213 (Rate Verify - Provider: Emili Alvarez RN)213 (Stopped - Provider: Emili Alvarez RN) 0530 [...] Puri RN) 0038 (Given - Provider: Emili Alvarez, CHIN)0855 (Given - Provider: Enid Jackson, CHIN) docusate sodium (COLACE) capsule 100 mg 100 mg, Oral, TWO TIMES DAILY, First dose on Thu11/03/18 at 2100, Until Discontinued, Routine 2020 (Refused - Provider: Emili Alvarez RN) 0902 (Refused - Provider: Enid Jackson, CHIN) gabapentin (NEURONTIN) capsule 1,200 mg 1,200 mg, [...] Intra-op 1200 (Canceled Entry - Provider: Yarelis Puri RN) naloxone (NARCAN) 0.4 mg/mL injection 0.1 mg 0.1 mg, IV, SEE ADMIN INSTRUCTIONS, Starting on Thu11/03/18 at 1549, Until Thu11/04/18 at 1531, Routine pantoprazole (PROTONIX) tablet 40 mg 40 mg, Oral, DAILY BEFORE BREAKFAST, First dose on Thu11/04/18 at 0600, Until Discontinued, Routine 0530 (Given - Provid er: Emili Alvarez RN) primidone (MYSOLINE) tablet 50 mg 50 mg, Oral, DAILY AT BEDTIME, First dose (after last modification) on Thu11/04/18 at 0115, Until Discontinued, Routine 0115 (Refused - Provider: Emili Alvarez RN) Continuous Medication Order 11/02/2018 11/03/2018 11/04/2018 lactated ringers infusion (CANCELED) IV, at 150 mL/hr, PRE-PROCEDURE CONTINUOUS, Starting on Thu11/03/18 at 1100, Until Thu11/03/18 at 1651, Routine 1117 (New Bag - Provider: Doreen Kaminski RN)1337 (New Bag - Provider: Erma Yarbrough CRNA)1604 (Fluid Volume - Provider: Erma Yarbrough CRNA) lactated ringers infusion IV, at 125 mL/hr, POST-PROCEDURE CONTINUOUS, Starting on Thu11/03/18 at 1345, Until Dhara 11/04/18 at 1531, Routine, PACU 1614 (New Bag - Provider: Lubna Walsh RN) lactated ringers infusion IV, at 125 mL/hr, CONTINUOUS, Starting on Thu11/03/18 at 1600, Until Dhara 11/04/18 at 1531, Routine 1716 (Paused - Provider: Emili Alvarez RN)1716 (New Bag - Provider: Yarelis Puri RN)1949 (Rate Verify - Provider: Emili Alvarez RN)210 (Stopped - Provider: Emili Alvarez RN)213 (Restarted - Provider: Emili Alvarez, CHIN)2237 (Rate Verify - Provider: Emili Alvarez, CHIN) 0000 (Rate Verify - Provider: Emili Alvarez RN)0108 (New Bag - Provider: Emili Alvarez RN)0125 (Rate Verify - Provider: Emili Alvarez RN)0343 (Rate Verify - Provider: Emili Alvarez RN)0530 (Stopped - Provider: Emili Alvarez RN)0600 (Restarted [...] doses, Starting on Thu11/03/18 at 1554, Until Dhara [...] Nausea/Emesis, Routine 1907 (Given - Provider: Yarelis Puri RN) 0134 (Given - Provider: Emili Alvarez, CHIN)0817 (Given - Provider: Enid Jackson, RN) oxyCODONE (ROXICODONE) oral solution 5 mg 5 mg, Oral, EVERY 4 HOURS PRN, Starting on Thu11/03/18 at 1554, Until Dhara 11/04/18 at 1531, Pain (See admin instructions), Routine oxyCODONE (ROXICODONE) oral solution 7.5 mg 7.5 mg, Oral, EVERY 4 HOURS PRN, Starting on Thu11/03/18 at 1554, Until Dhara 11/04/18 at 1531, Pain (See admin instructions), Routine 1724 (Given - Provider: Yarelis Puri RN)2110 (Given - Provider: Emili Alvarez, CHIN) 0349 (Given - Provider: Emili Alvarez, CHIN)0818 (Given - Provider: Enid Jackson, RN)1210 (Given - Provider: Enid Jackson, RN) prochlorperazine maleate (COMPAZINE) tablet 10 mg 10 mg, Oral, EVERY 6 HOURS PRN, Starting on Thu11/03/18 at 1555, Until Dhara 11/04/18 at 1531, Nausea/Emesis, Routine sodium chloride 0.9 % irrigation solution (CANCELED) INTRA-PROCEDURE PRN, Starting on Thu11/03/18 at 1357, Until Thu11/03/18 at 1558, Routine, Intra-op 1357 (Given - Provider: Dylon uFng MD - Comment: PRN ON FIELD) documented in this encounter Care Teams Fuel Buyer Relationship Specialty Start Date End Date Sg Richards MD [address] [place] [address] PCP - General Internal Medicine 06/10/17 08/13/21 documented as of this encounter
--- OUTSIDE RECORDS SUMMARY | 2024-07-16 13:01 | XMS_ITS | Encounter Summary ---
Author Organization [facility] Address [address] [place] [address] Care Team Providers Care R&D Lab Technician Name Role Phone Sg Richards MD Primary Care Provider Reason for Visit * Auth/Cert Specialty Diagnoses / Procedures Referred By Contac t Referred To Contact Diagnoses LT. FACIAL CELLULITIS Dylon Figueroa MD [address] [address] Referral ID Status Reason Start Date Expiration Date Visits Re quested Visits Authorized [id number] 08/04/2018 1 1 Encounter Details Date Type Department Care Team (Late st Contact Info) Description 08/11/2018 2:01 PM DAIRY FEED WORKER - 08/11/2018 3:16 PM DAIRY FEED WORKER Surgery [facility] Operating Room [address] [place] [id number] Dylon Figueroa MD [address] [address] ORALMAXILLOFACIAL DEVICE REMOVAL LT. MANDIBLE HARDWARE Surgery Details Date/Time Status Location OR Service Patient Class Case Class Case Type Trauma Case? 08/11/2018 2:01 PM Posted [facility] OR MAIN OR 27 Oralmaxillofacial Surgical OP/Extende d Care Elective No Panel 1 Procedure LRB Anes Op Region Wound Class Comments ORALMAXILLOFACIAL DEVICE REM OVAL LT. MANDIBLE HARDWARE N/A General Mouth Clean Contaminated- II Surgeon Surgeon Role Service Panel Dylon Figueroa MD Primary Oralmaxillofacial 1 Gowducheruvu, Wanda, DDS Oralmaxillofaci al 1 Case Notes WORK COMP--APPROVED PER SYLVESTER-- CPT 71985 documented in this encounter Social History Tobacco [...] Sign Reading Time Taken Comments Blood Pressure 100/52 08/11/2018 11:51 AM DAIRY FEED WORKER Pulse 83 08/11/2018 11:51 AM DAIRY FEED WORKER Temperature 36.9 ??C (98.4 ??F) 08/11/2018 1 1:51 AM DAIRY FEED WORKER Respiratory Rate 16 08/11/2018 11:5 1 AM DAIRY FEED WORKER Oxygen Saturation 97% 08/11/2018 11: 51 AM DAIRY FEED WORKER Inhaled Oxygen Concentration - - Weight 89.3 kg (196 lb 12.8 oz) 019 11:51 AM DAIRY FEED WORKER Height 160 cm (5' 3 ) 08/11/2018 11:51 AM DAIRY FEED WORKER Body Mass Index 34.86 08/11/2018 11:51 AM DAIRY FEED WORKER documented in this encounter Discharge Summaries * Wanda Peres DDS - 08/13/2018 12:05 PM CST Surgical Discharge Summary Patient Name aKyla Avila Age 43 y.o. Gender female Date of 1975 [facility] [phone] Attending Physician Dylon Figueroa MD Discharging Physician Wanda Peres DDS PCP Sg Richards MD Admit Date 08/11/2018 Discharge Date Length of Stay LOS: 0 days Follow-up & Outstanding Issues/Tests: Follow-up with Dr. Figueroa next week. Hospital Course: Kayla Avila is a 43 y.o. female who was admitted to (Insert hospital name)on 08/11/2018 and found to have a principle diagnosis of infected hardware left side Problems Addressed (Secondary Diagnoses): There are no hospital problems to display for this patient. Procedures performed: Procedure(s) (LRB): ORALMAXILLOFACIAL DEVICE REMOVAL LT. MANDIBLE HARDWARE (N/A) MEDICATIONS Prior to admission: Prescriptions Prior to Admission Medication Sig Dispense Refill Last Dose ??? HYDROcodone-acetaminophen (NORCO) 5-325 mg tablet Take 1 Tablet by mouth every 8 hours as needed for Pain, Moderate. 08/11/2018 at 0630 ??? lamoTRIgine (LaMICtal) 100 mg tablet Take 350 mg by mouth 2 times daily . 08/10/2018 at Unknown time ??? levETIRAcetam (KEPPRA) 1,000 mg tablet Take 2,000 mg by mouth 2 times daily . 08/11/2018 at 0630 ??? primidone (MYSOLINE) 50 mg tablet Take 50 mg by mouth daily at bedtime. 08/10/2018 at Unknown time ??? pantoprazole (PROTONIX) 40 mg Tablet, Delayed Release (E.C.) Take 40 mg by mouth daily. 08/10/2018 at Unknown time ??? traZODone (DESYREL) 100 mg Oral tablet Take 100 mg by mouth daily at bedtime. 08/10/2018 at Unknown time ??? gabapentin (NEURONTIN) 600 mg Oral tablet Take 1,200 mg by mouth 3 times daily. 08/10/2018 at Unknown time ??? buPROPion SR 12 hour (WELLBUTRIN-SR) 150 mg Oral tablet Take 150 mg by mouth 2 times daily. 08/10/2018 at Unknown time ??? ondansetron (ZOFRAN) 4 mg Tablet Take 1 Tablet (4 mg) by mouth every 8 hours as needed for Nausea/Emesis. 40 Tablet 0 Unknown at Unknown time ??? oxyCODONE-acetaminophen (PERCOCET) 7.5-325 mg Tablet Take 1 Tablet by mouth every 4 hours as needed for Pain, Moderate May crush tablet and mix to liquid. Max Daily Amount: 6 Tablets 20 Tablet 0 Unknown at Unknown time ??? calcium carbonate (TUMS ORAL) Take by mouth 1 time daily as needed. Unknown at Unknown time Discharge medications and new prescriptions: Medication List CONTINUE taking these medications buPROPion HCl 150 mg Sustained Release 12 hour tablet Commonly known as: WELLBUTRIN SR Take 150 mg by mouth 2 times daily. Refills: 0 gabapentin 600 mg tablet Commonly known as: NEURONTIN Take 1,200 mg by mouth 3 times daily. Refills: 0 HYDROcodone-acetaminophen 5-325 mg tablet Commonly known as: NORCO Take 1 Tablet by mouth every 8 hours as needed for Pain, Moderate. Refills: 0 lamoTRIgine 100 mg tablet Commonly known as: LaMICtal Take 350 mg by mouth 2 times daily . Refills: 0 levETIRAcetam 1,000 mg tablet Commonly known as: KEPPRA Take 2,000 mg by mouth 2 times daily . Refills: 0 ondansetron 4 mg Tablet Commonly known as: ZOFRAN Take 1 Tablet (4 mg) by mouth every 8 hours as needed for Nausea/Emesis. Signed by: MACKENZIE KANG MD Quantity: 40 Tablet Refills: 0 oxyCODONE-acetaminophen 7.5-325 mg Tablet Commonly known as: PERCOCET Take 1 Tablet by mouth every 4 hours as needed for Pain, Moderate May crush tablet and mix to liquid. Max Daily Amount: 6 Tablets Signed by: Demetri Rowe DMD Quantity: 20 Tablet Refills: 0 pantoprazole 40 mg Tablet, [...] 1 time daily as needed. Refills: 0 Discharged Condition: Stable Disposition: HOME Patient Instructions: Activity: activity as tolerated Diet is: DIET FULL LIQUID Wound Care: Pressure dressing for 48 hours, wash with mild soap and pat dry, apply bacitracin ointment BID Signed: Wanda Peres DDS 08/13/2018, 12:05 PM This discharge took 10 minutes Y FEED WORKER documented in this encounter Discharge Instructions * Discharge Instructions* Wanda Peres DDS - 08/13/2018 12:07 AM DAIRY FEED WORKER SAFETY For the next 24 hours, you [...] Prescriptions given. DIET Clear liquids, advance to full liquids as tolerated. If nausea is experienced, the [...] wound immersion. FOLLOW-UP Call the office at [phone] to make an appointment for 7 days after surgery. Once you are home, if you develop any of the following symptoms, call your physician. Difficulty in breathing, persistent nausea or vomiting, profuse bleeding at incision site, pain that is unusual, temperature greater than 101 degrees. If you cannot contact your physician, call or come to the Emergency Room at [facility] ([phone]) or the nearest Emergency Room. 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 Patient is doing better today. 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 Continue Rocephin at home as per ID recommendation 2. Ambulation at home 3. Wound care explained to patient 3. D/C home today and F/U with Dr. Figueroa next week ?? 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 Patient is tolerating PO diet, ambulating and pain under controlled with Morphine and Haylie.Maxface CT and 3D recons done today per TMJ concepts protocol for new prosthetic joint replacement Vitals: 08/12/18 1319 08/12/18 1515 08/12/18 1913 08/12/182002 BP: 104/76 112/70 115/76 BP Location: Right arm Right arm Right arm Patient Position (BP): Supine Supine Supine Pulse: 63 65 72 76 Resp: 12 8 13 15 Temp: 97.9 ??F (36.6 ??C) 97.7 ??F (36.5 ??C) 98.9 ??F (37.2 ??C) TempSrc: Axillary Axillary Axillary SpO2: 96% 99% 96% 96% Weight: Height: P/E: Dressing intact Wound hemostatic MMF intact with stable occlusion Moderate left facial edema No CN VII weakness noted A/P: Kayla is a 43-year-old female S/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 Continue Rocephin 2. Ambulation 3. Switch to PO pain meds 4. D/C home tomorrow Wanda Peres DDS Y FEED WORKER * Va Quinones, RT - 08/12/2018 1:[address] facial bones (TMJ concept) protocol was completed. Y FEED WORKER * Joan Ibrahim RN - 08/11/2018 11:00 PM CST Undress and Assess performed by: maksim Admission or upon transfer to: pacu to [facility] ~~~~~~~~~~~~~~~~~~~~~~~~~~~~ Is the patient a paraplegic/quadriplegic? Does the patient have new purple/lee ann/dark red over bony prominences? Does the patient have an ostomy? Is the length of stay >2 weeks? [...] CPAP, walker): All Jewelry removed from patient Patient refused Disposition of belongings/valuables: Y FEED WORKER documented in this encounter H&P Notes * Wanda Peres DDS - 08/11/2018 3:14 PM CST I have reviewed the last H&P and examined the patient today and there are no changes. Wanda Peres DDS Y FEED WORKER documented in this encounter OR Notes * Sabrina-OP - Dave Gomez RN - 08/11/2018 7:35 PM CST Potential for pain related to surgical/procedural intervention Interventions: Assess level of pain/comfort utilizing verbal/nonverbal pain scales; assess culturalor mosque indicators attached to pain; administer pain medications as prescribed; utilize non-pharmacologic pain control and comfort measures Expected Outcome: Patient demonstrates and reports adequate pain control Outcome Met Potential for alteration in thermoregulatory, circulatory, respiratory [...] functional status compatible with preoperative status Outcome Met Y FEED WORKER * Sabrina-OP - Carla Villatoro RN - 08/05/2018 9:08 AM CST SURGERY ORDERS UNAVAILABLE DURING PACE PHONE INTERVIEW. CALLED DR FIGUEROA'S OFFICE AND SPOKE TO SAMIRA, REQUESTING ORDERS FOR DOS. Y FEED WORKER * Sabrina-OP - Carla Villatoro RN - 08/05/2018 9:04 AM CST CALLED PATIENT REGARDING DOS, 08/11/18. PATIENT STATES SHE HAS NO CHANGES IN HER HISTORY OR MEDICATIONS SINCE LAST SURGERY DATE, 08/04/18. STATES SURGERY WAS CANCELLED ON 08/04/18 DUE TO NOT HAVING THEINSTRUMENT NEEDED . PATIENT STATES SHE HAS NO QUESTIONS ABOUT PRE PROCEDURAL INSTRUCTIONS, STATES SHE UNDERSTANDS ALL PRE PROCEDURAL INSTRUCTIONS. Y FEED WORKER * Operative Report - Wanda Peres DDS - 08/04/2018 6:36 PM DAIRY FEED WORKER Operative Report Kayla [place] [id number] Pre-operative Diagnosis: LT. FACIAL CELLULITIS Post-operative Diagnosis: Same Procedure(s) and Anesthesia Type: * ORALMAXILLOFACIAL DEVICE REMOVAL LT. MANDIBLE HARDWARE - General Surgeon(s) and Role: * Wanda Peres DDS * Dylon Figueroa MD - Primary Indications: Infected joint, recurrent facial swelling Procedure Start: 1548 Procedure End: 1825 Description of Procedure: Patient transported to OR by anesthesia service. IMF was released. General anesthesia induced and nasal endotracheal tube placed and secured. Oropharynx suctioned dry and throat pack placed. Local anesthetic consisting of 1% lidocaine with 1:100,000 epi 6cc injected in maxilla and mandible. IMF screws removed. Usman archbars placed in maxilla and mandible and secured with 24 gauge wires.Patient was placed in maxillo- mandibular fixation after removal of throat pack was removed. Patientprepped and draped in standard fashion. Timeout performed. An incision was placed over the previous scar, 2 cm inferior to the mandible, the incision carried through skin and subcutaneous tissues to the level of the platysma. The skin was undermined with scissor dissection in all directions to facilitate closure. Hemostasis was achieved with eletrocoagulation of bleeding subdermal vessels. Division of platysma fibers was performed sharply.. After undermining the platysma muscle over the superficial layer of deep cervical fascia. After exposing the underlying superficial layer of deep cervical fascia. The submandibular salivary gland was visualized through the fascia. Dissection through the superficial layer of deep cervical fascia is accomplished by nicking it with a scalpel and bluntly undermining with a Metzenbaum scissors. At all times a electronic nerve monitor was used. The dissection through the fascia at the level of the initial skin incision was performed, followed by dissection superiorly to the level of the pterygomasseteric sling of the mandible exposing the mandible. Dissection was continued superiorly until the condylar prosthesis and the screw were exposed. Removed all 7 screws and condylar prosthesis, sent them for pathology along with heterotopic bone grown over the condylar prosthesis. Copious normal saline irrigations used. Coronoidectomy performed. Demineralized allogenic bone was placed over the screw holes. PMMA resin cement/spacer was mixed in todesired consistency and adapted over the glenoid fossa and normal saline used to cool down the heatreleased by exothermic reaction of the resin. Layered closure achieved with 3-O vicryl sutures for m uscle, subdermal sutures with 4-O vicryl sutures. A 5-O prolene suture was used for skin. Non adhesive bandage placed after bacitracin ointment was applied. Patient turned back over to anesthesia for emergence, extubation and patient was transported to PACU in stable condition. Sponge andneedle counts correct. Findings: Hyperostotic bone noted over condylar prosthesis Specimens: ID Type Source Tests Collected by Time 1 : Left temporomandibular joint prosthesis Lesion/Drainage Fluid Jaw FUNGUS CULTURE, OTHER, ANAEROBIC/AEROBIC CULTURE W GRAM STAIN, AFB CULTURE WITH STAIN Dylon Figueroa MD 08/11/2018 1752 A : Left Mandible Hyperaesthetic Bone Tissue Mandible PATHOLOGY Dylon Figueroa MD 08/11/2018 1712 B : Left mandible coronoid process Tissue Mandible PATHOLOGY Dylon Figueroa MD 08/11/2018 1754 Implants: Implant Name Type Inv. Item Serial No. Quality Control Projectionist Lot No. LRB No. Used Action KLS MMF MANDIBLE SCREWS Screw STERILIZED JUN 04 KLS MARI LP LOAD 23 N/A 5 Explanted SCREW MMF MAXDRV [id number] - [id number] Screw SCREW MMF MAXDRV 2.0X12MM [id number] KLSMARTIN LP N/A 2 Explanted PUTTY DBX DBM 1ML 26023 - [id number] Tissue PUTTY DBX DBM 1ML [id number] MUSCULOSKELETAL TRANSPLANT FOU N/A 1 Implanted [place] HV Bone Cement with Gentamicin (G-HV) Cement [employer] [id number] N/A 1 Implanted Mandibular prosthesis plate Left 1 Explanted Estimated Blood Loss: Minimal Disposition: PACU Wanda Peres DDS Y FEED WORKER documented in this encounter Miscellaneous Notes * Care Plan - Aminah Oneal RN - 08/11/2018 6:44 PM CST Potential for pain related to surgical/procedural intervention [...] no bleeding or hematoma from surgical site Y FEED WORKER * Care Plan - Barbara Law RN - 08/11/2018 12:22 PM CST Potential for anxiety related to surgical intervention Interventions: convey caring/supportive attitude; offer emotional support as needed; provide comfort measures (warm blanket, pillow, quiet environment); allow patient opportunity to verbalize concerns/fears/questions; explore coping behaviors; allow age-specific/special needs family support Expected Outcome: Patient will demonstrate decreased anxiety or adaptive coping strategies Outcome Met: comfort measures offered Potential for pain related to surgical/procedural intervention Interventions: Assess level of pain/comfort utilizing verbal/nonverbal pain scales; assess culturalor mosque indicators attached to pain; administer pain medications as prescribed; utilize non-pharmacologic pain control and comfort measures Expected Outcome: Patient demonstrates and reports adequate pain control Outcome Met: denies any pain Y FEED WORKER documented in this encounter Plan of Treatment Not on file documented as of this encounter Procedures Procedure Name Priority Date/Time Associated Diagnosis Comments CT 3D RECON W INDEP WORKSTATION Routine 08/12/2018 1:[address] SINUS FACIAL BONES WO CONTRAST Stat 08/12/2018 12:45 PM DAIRY FEED WORKER PATHOLOGY Pathology 08/11/2018 5:12 PM DAIRY FEED WORKER ORALMAXILLOFACIAL DEVICE REMOVAL 08/11/2018 2:56 PM DAIRY FEED WORKER LT. FACIAL CELLULITIS Case Notes WORK COMP--APPROVED ANTONIO PHAN-- CPT 17708 POC , URINE Routine 08/11/2018 12:15 PM DAIRY FEED WORKER documented in this encounter Results * CT 3D RECON W INDEP WORKSTATION (08/12/2018 1:55 PM DAIRY FEED WORKER) Anatomical Region Laterality Modality Computed Tomogra phy 08/13/2018 12:2 8 AM DAIRY FEED WORKER Impressions 08/13/2018 9:59 AM DAIRY FEED WORKER IMPRESSION: 3-dimensional shaded surface reformatted images of the facial bones. DICTATION LOCATION: [facility] The examination was performed with the adjustment of mA according to the patient size and/or the use of Iterative Reconstruction Technique. Narrative 08/13/2018 9:[address] 3D RECONSTRUCTIONS DATE: ??08/12/2018 11:45 AM HISTORY: ?? Temporomandibular joint pain. COMPARISON: CT facial bones August 12, 2018 FINDINGS: ??CT source images of the facial bones were transferred to an independent workstation and 3-dimensional shaded surface reformatted images were performed under direct Radiologist supervision. ??The findings are as noted in the CT source images from the CT facial bones. ??Again noted are postsurgical changes within the left temporomandibular joint space. Procedure Note Patrice Montano MD - 08/13/2018 CT 3D RECONSTRUCTIONS DATE: 08/12/2018 11:45 AM HISTORY: Temporomandibular joint pain. COMPARISON: CT facial bones August 12, 2018 FINDINGS: CT source images of the facial bones were transferred to an independent workstation and 3-dimensional shaded surface reformatted images were performed under direct Radiologist supervision. The findings are as noted in the CT source images from the CT facial bones. Again noted are postsurgical changes within the left temporomandibular joint space. IMPRESSION: 3-dimensional shaded surface reformatted images of the facial bones. DICTATION LOCATION: [facility] The examination was performed with the adjustment of mA according to the patient size and/or the use of Iterative Reconstruction Technique. Wanda Gowducheruvu DDS CT ORDERABLES * CT SINUS FACIAL BONES WO CONTRAST (08/12/2018 12:45 PM DAIRY FEED WORKER) Anatomical Region Laterality Modality Head Computed Tomogra phy 08/12/2018 1:55 PM DAIRY FEED WORKER Impressions 08/12/2018 2:36 PM DAIRY FEED WORKER IMPRESSION: 1. Postoperative changes, as above. 2. Chronic exam performed for treatment planning purposes. The examination was performed with the adjustment of mA according to the patient size and/or the use of Iterative Reconstruction Technique. DICTATION LOCATION: [address] 08/12/2018 2:[address] SINUS WITHOUT CONTRAST WITH REFORMATTED IMAGES DATE: 08/12/2018 12:45 PM HISTORY: TMJ ankylosis, known, follow up; TMJ pain or limited movement. ?? COMPARISON: 06/24/2017. ?? TECHNIQUE: TMJ concept protocol. FINDINGS: Since the prior exam, the left TMJ arthroplasty has been removed and there are expected postsurgical changes in the left submandibular space. There is cement material in the joint space at the site of prior arthroplasty. There appears to be chronic remodeling of the mandibular fossa with a thickened and sclerotic appearance of the glenoid. Examination was performed for surgical planning purposes with regards to a future joint replacement. Incidentally noted is mucoperiosteal thickening in the right maxillary sinus with some periapical lucency around the right maxillary 1st molar. Procedure Note Soto Chavarria MD - 08/12/2018 CT SINUS WITHOUT CONTRAST WITH REFORMATTED IMAGES DATE: 08/12/2018 12:45 PM HISTORY: TMJ ankylosis, known, follow up; TMJ pain or limited movement. COMPARISON: 06/24/2017. TECHNIQUE: TMJ concept protocol. FINDINGS: Since the prior exam, the left TMJ arthroplasty has been removed and there are expected postsurgical changes in the left submandibular space. There is cement material in the joint space at the site of prior arthroplasty. There appears to be chronic remodeling of the mandibular fossa with a thickened and sclerotic appearance of the glenoid. Examination was performed for surgical planning purposes with regards to a future joint replacement. Incidentally noted is mucoperiosteal thickening in the right maxillary sinus with some periapical lucency around the right maxillary 1st molar. IMPRESSION: 1. Postoperative changes, as above. 2. Chronic exam performed for treatment planning purposes. The examination was performed with the adjustment of mA according to the patient size and/or the use of Iterative Reconstruction Technique. DICTATION LOCATION: Location [address] [place] [address] [address] ORDERABLES * PATHOLOGY (08/11/2018 5:12 PM DAIRY FEED WORKER) CASE REPORT Surgical Pathology Report ? Case: [id number] ? Authorizing Provider: ??Dylon Figueroa MD ?Collected: ? 08/11/2018 05:12 PM ? Ordering Location: ? [facility] ?Received: ?08/12/2018 08:24 AM ? Operating Room ? Pathologist: ? Codi Smith MD ? Specimens: ?? A) - Mandible, Left Mandible Hyperaesthetic Bone ? B) - Mandible, Left mandible coronoid process ? 08/17/2018 2:28 PM DAIRY FEED WORKER [facility] FINAL DIAGNOSIS Bone, left mandible hyperaesthetic bone, biopsy: - Mild reactive changes. Bone, left mandible coronoid process, biopsy: - Mild reactive changes. 08/17/2018 2:28 PM [facility] IMEN DESCRIPTION (A) Left mandible hyperaesthetic bone; (B) left mandible coronoid process. 08/17/2018 2:28 PM [facility] OPERATIVE PROCEDURE Oral maxillofacial device removal left mandible hardware. 08/17/2018 2:28 PM [facility] CLINICAL INFORMATION Left facial cellulitis. 08/17/2018 2:28 PM [facility] GROSS DESCRIPTION Two containers are received labeled Kayla Avila. Received in the first container, additionally labeled left mandible hyperaesthetic bone, are three pieces of red-griggs bone ranging from 1.5 to 2.6 cm in greatest dimension. The specimen is submitted entirely in cassette A1 for decalcification. Received in the second container, additionally labeled left mandible coronoid process, is a 1.8 x 1.3 x 1.2-cm piece of red-griggs bone. The specimen is trisected and submitted entirely in cassette B1 for decalcification. KLA/anahi 08/17/2018 2:28 PM [facility] MICROSCOPIC DESCRIPTION Review of slides labeled Kayla Avila and [id number]. Sections of the left mandible hyperesthetic bone and left mandible coronoid process show fragments of dense bone with mild reactive changes and skeletal muscle. There is no evidence of acute inflammation, dysplasia or malignancy. The bone marrow shows trilineage hematopoiesis. 08/17/2018 2:28 PM [facility] COMMENT Special stain and/or immunohistochemical results are interpreted with controls that demonstrate appropriate staining reactions. Note on use of immunocytochemistry reagents: This test was developed and its performance characteristic determined by [facility], Department of Laboratory Medicine. It has [...] WF, WB and WH are performed by [address], [address]. All other case types are performed by [facility] [address] [place], [address]. 08/17/2018 2:28 PM DAIRY FEED WORKER [facility] LABORATORY [facility] Tissue ENTIRE MANDIBLE / Unknown Collection / Unknown 08/11/2018 5:12 PM DAIRY FEED WORKER 08/12/2018 8:24 AM DAIRY FEED WORKER Tissue specimen (specimen) ENTIRE MANDIBLE / Unknown 08/11/2018 5:54 PM DAIRY FEED WORKER 08/12/2018 8:24 AM DAIRY FEED WORKER Dylon Figueroa MD PATHOLOGY/CYTOLOGY O RDERABLES Performing Organization Address [facility]/ZIP Co de Phone Number [facility]# [id number] [address] [place] [address] * POC , URINE (08/11/2018 12:15 PM DAIRY FEED WORKER) HCG QUAL URINE Negative Negative 08/11/2018 12:47 PM DAIRY FEED WORKER [facility] Urine 08/11/2018 12:1 5 PM DAIRY FEED WORKER 08/11/2018 12:47 PM DAIRY FEED WORKER Dylon Figueroa MD POINT OF CARE TESTIN G Performing Organization Address [facility] Co de Phone Number [facility]# [id number] [address] [place] [address] documented in this encounter Visit Diagnoses Not on filedocumented in this encounter Administered Medications Inactive Administered Medications - up to 3 most recent administrations Medication Order MAR Action Action Date Dose Rate Site buPROPion HCl (WELLBUTRIN SR) SR 12 hour tablet 150 mg 150 mg, Oral, TWO TIMES DAILY, First dose on Thu08/11/18 at 2200, Until Discontinued, Routine Given 08/13/2018 8:29 AM DAIRY FEED WORKER 150 mg Given 08/12/2018 8:03 PM DAIRY FEED WORKER 150 mg Given 08/12/2018 8:34 AM DAIRY FEED WORKER 150 mg ceFAZolin (ANCEF) 1,000 mg in dextrose (iso-osmotic) 50 mL IVPB (PREMIX) 1,000 mg, IV, EVERY 8 HOURS, First dose on Thu08/11/18 at 2300, Until Discontinued, Routine, Antibiotic Indication: Wound / Cellulitis / Abscess New Bag 08/12/2018 8:36 AM DAIRY FEED WORKER 1,000 mg 10 0 mL/hr New Bag 08/12/2018 2:26 AM DAIRY FEED WORKER 1,000 mg 100 mL/hr cefTRIAXone (ROCEPHIN) 2,000 mg in dextrose (iso-osmotic) 50 mL IVPB 2,000 mg, IV, EVERY 24 HOURS (DAILY), First dose on Dhara 08/12/18 at 0300, Until Discontinued, Routine, Antibiotic Indication: Other: Enter in Comments, 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 New Bag 08/13/2018 3:16 AM DAIRY FEED WORKER 2,000 mg 100 mL/hr Rate Verify 08/12/2018 3:31 AM DAIRY FEED WORKER 100 mL/hr New Bag 08/12/2018 3:30 AM DAIRY FEED WORKER 2,000 mg 100 mL/hr fentaNYL PF (SUBLIMAZE) 50 mcg/mL injection 25 mcg 25 mcg, IV, POST-PROCEDURE Q 3 MINUTES PRN, Starting on Thu08/11/18 at 1440, Until Thu08/11/18 at 2103, Pain, Moderate, For pain scale 4-6, Routine, PACU Given 08/11/2018 7:06 PM DAIRY FEED WORKER 25 mcg Given 08/11/2018 7:00 PM DAIRY FEED WORKER 25 mcg Given 08/11/2018 6:54 PM DAIRY FEED WORKER 25 mcg gabapentin (NEURONTIN) capsule 1,200 mg 1,200 mg, Oral, THREE TIMES DAILY, First dose on Thu08/11/18 at 2200, Until Discontinued, Routine Given 08/13/2018 12:35 PM DAIRY FEED WORKER 1,200 mg Given 08/13/2018 8:27 AM DAIRY FEED WORKER 1,200 mg Given 08/12/2018 8:03 PM DAIRY FEED WORKER 1,200 mg HYDROmorphone (DILAUDID) 2 mg/mL injection 0.3 mg 0.3 mg, IV, POST-PROCEDURE Q 5 MINUTES PRN, Starting on Thu08/11/18 at 1440, Until Thu08/11/18 at 2103, Pain, Mild, For pain scale 1-3, Routine, PACU Given 08/11/2018 8:00 PM DAIRY FEED WORKER 0.3 mg Given 08/11/2018 7:47 PM DAIRY FEED WORKER 0.3 mg Given 08/11/2018 7:35 PM DAIRY FEED WORKER 0.3 mg ibuprofen (MOTRIN) tablet 600 mg 600 mg, Oral, EVERY 8 HOURS, First dose on Thu08/11/18 at 2200, Until Discontinued, Routine, Post-op - Floor Given 08/13/2018 1:00 PM DAIRY FEED WORKER 600 mg lactated ringers infusion IV, at 125 mL/hr, POST-PROCEDURE CONTINUOUS, Starting on Thu08/11/18 at 1445, Until Thu08/13/18 at 1917, Routine, PACU Rate Verify 08/13/2018 2:38 AM DAIRY FEED WORKER 125 mL/hr Rate Verify 08/12/2018 10:05 PM DAIRY FEED WORKER 125 mL/hr Restarted 08/12/2018 9:51 PM DAIRY FEED WORKER 125 mL/hr lactated Ringers solution IV, at 150 mL/hr, PRE-PROCEDURE ONCE, 1 dose, Starting on Thu08/11/18 at 1218, Until Dhara 08/12/18 at 0734, Routine New Bag 08/11/2018 12:35 PM DAIRY FEED WORKER 150 mL/hr lamoTRIgine (LaMICtal) tablet 350 mg 350 mg, Oral, TWO TIMES DAILY, First dose on Thu08/11/18 at 2200, Until Discontinued, Routine Given 08/13/2018 8:29 AM DAIRY FEED WORKER 350 mg Given 08/12/2018 8:03 PM DAIRY FEED WORKER 350 mg Given 08/12/2018 8:35 AM DAIRY FEED WORKER 350 mg levETIRAcetam (KEPPRA) tablet 2,000 mg 2,000 mg, Oral, TWO TIMES DAILY, First dose on Thu08/11/18 at 2200, Until Discontinued, Routine Given 08/13/2018 8:27 AM DAIRY FEED WORKER 2,000 mg Given 08/12/2018 8:03 PM DAIRY FEED WORKER 2,000 mg Given 08/12/2018 8:34 AM DAIRY FEED WORKER 2,000 mg lidocaine-EPINEPHrine (XYLOCAINE-EPI) 1 %-1:100,000 20 mL INJECTION Infiltration, INTRA-PROCEDURE PRN, Starting on Thu08/11/18 at 1412, Until Thu08/11/18 at 2103, prn, Routine, Intra-op Given 08/11/2018 4:50 PM DAIRY FEED WORKER 2 mL Operative Site morphine 4 mg/mL injection 2 mg 2 mg, IV, EVERY 3 HOURS PRN, Starting on Thu08/11/18 at 2125, Until Thu08/13/18 at 1917, Pain (See admin instructions), Routine Given 08/13/2018 3:14 AM DAIRY FEED WORKER 2 mg Given 08/12/2018 10:32 PM DAIRY FEED WORKER 2 mg Given 08/12/2018 5:36 PM DAIRY FEED WORKER 2 mg ondansetron (ZOFRAN) 4 mg/2 mL injection 4 mg 4 mg, IV, EVERY 6 HOURS PRN, Starting on Thu08/11/18 at 2252, Until Thu08/13/18 at 1917, Nausea/Emesis, Routine Given 08/13/2018 8:25 AM DAIRY FEED WORKER 4 mg Given 08/12/2018 8:12 PM DAIRY FEED WORKER 4 mg Given 08/12/2018 8:46 AM DAIRY FEED WORKER 4 mg oxyCODONE (ROXICODONE) oral solution 7.5 mg 7.5 mg, Oral, EVERY 4 HOURS PRN, Starting on Thu08/11/18 at 2241, Until Thu08/13/18 at 1917, Pain (See admin instructions), Routine Given 08/13/2018 4:26 PM DAIRY FEED WORKER 7.5 mg Given 08/13/2018 12:50 PM DAIRY FEED WORKER 7.5 mg Given 08/13/2018 9:36 AM DAIRY FEED WORKER 7.5 mg primidone (MYSOLINE) tablet 50 mg 50 mg, Oral, DAILY AT BEDTIME, First dose on Thu08/11/18 at 2200, Until Discontinued, Routine Given 08/12/2018 8:03 PM DAIRY FEED WORKER 50 mg Given 08/11/2018 11:18 PM DAIRY FEED WORKER 50 mg sodium chloride 0.9 % irrigation solution INTRA-PROCEDURE PRN, Starting on Thu08/11/18 at 1551, Until Thu08/11/18 at 1840, Routine, Intra-op Given 08/11/2018 3:51 PM DAIRY FEED WORKER 1,000 mL Opera tive Site traZODone (DESYREL) tablet 100 mg 100 mg, Oral, DAILY AT BEDTIME, First dose on Thu08/11/18 at 2200, Until Discontinued, Routine Given 08/12/2018 8:02 PM DAIRY FEED WORKER 100 mg Given 08/11/2018 11:22 PM DAIRY FEED WORKER 100 mg documented in this encounter Active and Recently Administered Medications Times are shown in DAIRY FEED WORKER. Scheduled Medication Order 08/11/2018 08/12/2018 08/13/2018 buPROPion HCl (WELLBUTRIN SR) SR 12 hour tablet 150 mg 150 mg, Oral, TWO TIMES DAILY, First dose on Thu08/11/18 at 2200, Until Discontinued, Routine 2319 (Given - Provider: Joan Ibrahim RN) 0834 (Given - Provider: Chely Gonzales, CHIN)2002 (Given - Provider: Va Grace RN) 0829 (Given - Provider: Zari Alonso, CHIN) ceFAZolin (ANCEF) 1,000 mg in dextrose (iso-osmotic) 50 mL IVPB (PREMIX) (CANCELED) 1,000 mg, IV, EVERY 8 HOURS, First dose on Thu08/11/18 at 2300, Until Discontinued, Routine, Antibiotic Indication: Wound / Cellulitis / Abscess 0144 (Canceled Entry - Provider: Joan Ibrahim RN)0214 (Canceled Entry - Provider: Joan Ibrahim RN)0226 (New Bag - Provider: Joan Ibrahim RN)0256 (Stopped - Provider: Joan Ibrahim RN)0836 (New Bag - Provider: Chely Gonzales, CHIN)0906 (Stopped - Provider: Chely Gonzales, CHIN) ceFAZolin in sterile water (ANCEF) 2 gram/20 mL IV Syringe (PREMIX) 2,000 mg (COMPLETED) 2,000 mg, IV, ONE TIME ONLY, 1 dose, On Thu08/11/18 at 1530, Routine, Antibiotic Indication: Surgical prophylaxis 1538 (Given - Provider: ABRAN Henley) cefTRIAXone (ROCEPHIN) 2,000 mg in dextrose (iso-osmotic) 50 mL IVPB 2,000 mg, IV, EVERY 24 HOURS (DAILY), First dose on Thu08/12/18 at 0300, Until Discontinued, Routine, Antibiotic Indication: Other: Enter in Comments, 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 0330 (New Bag - Provider: Joan Ibrahim RN)0331 (Rate Verify - Provider: Va Grace RN)0400 (Stopped - Provider: Joan Ibrahim RN)0401 (Stopped - Provider: Va Grace RN) 0316 (New Bag - Provider: Va Grace RN)0346 (Stopped - Provider: Va Grace RN) gabapentin (NEURONTIN) capsule 1,200 mg 1,200 mg, Oral, THREE TIMES DAILY, First dose on Thu08/11/18 at 2200, Until Discontinued, Routine 2357 (Given - Provider: Joan Ibrahim RN) 0834 (Given - Provider: Chely Gonzales, CHIN)1253 (Refused - Provider: Chely Gonzales, CHIN - Comment: doesn't take it at this time)2002 (Given - Provider: Va Grace RN) 0827 (Given - Provider: Zari Alonso RN)1235 (Given - Provider: Zari Alonso RN) ibuprofen (MOTRIN) tablet 600 mg 600 mg, Oral, EVERY 8 HOURS, First dose on Thu08/11/18 at 2200, Until Discontinued, Routine, Post-op - Floor 2200 (Refused - Provider: Joan Ibrahim RN) 0500 (Refused - Provider: Joan Ibrahim RN)1300 (Refused - Provider: Chely Gonzales, CHIN)2100 (Refused - Provider: Va Grace RN) 0500 (Refused - Provider: Va Grace RN)1300 (Given - Provider: Zari Alonso RN) lactated Ringers solution (COMPLETED) IV, at 150 mL/hr, PRE-PROCEDURE ONCE, 1 dose, Starting on Thu08/11/18 at 1218, Until Dhara 08/12/18 at 0734, Routine 1235 (New Bag - Provider: Barbara Law RN) 0734 (Stopped - Provider: Chely Gonzales, CHIN - Comment: before shift) lamoTRIgine (LaMICtal) tablet 350 mg 350 mg, Oral, TWO TIMES DAILY, First dose on Thu08/11/18 at 2200, Until Discontinued, Routine 2319 (Given - Provider: Joan Ibrahim RN) 0835 (Given - Provider: Chely Gonzales, CHIN)2002 (Given - Provider: Va Grace RN) 08 (Given - Provider: Zari Alonso, CHIN) levETIRAcetam (KEPPRA) tablet 2,000 mg 2,000 mg, Oral, TWO TIMES DAILY, First dose on Thu08/11/18 at 2200, Until Discontinued, Routine 2357 (Given - Provider: Joan Ibrahim RN) 0834 (Given - Provider: Chely Gonzales RN)2002 (Given - Provider: Va Grace RN) 08 (Given - Provider: Zari Alonso RN) primidone (MYSOLINE) tablet 50 mg 50 mg, Oral, DAILY AT BEDTIME, First dose on Thu08/11/18 at 2200, Until Discontinued, Routine 2318 (Given - Provider: Joan Ibrahim RN) 2002 (Given - Provider: Va Grace RN) traZODone (DESYREL) tablet 100 mg 100 mg, Oral, DAILY AT BEDTIME, First dose on Thu08/11/18 at 2200, Until Discontinued, Routine 2322 (Given - Provider: Joan Ibrahim RN) 2001 (Given - Provider: Va Grace RN) Continuous Medication Order 08/11/2018 08/12/2018 08/13/2018 lactated ringers infusion IV, at 125 mL/hr, POST-PROCEDURE CONTINUOUS, Starting on Thu08/11/18 at 1445, Until Thu08/13/18 at 1917, Routine, PACU 1907 (New Bag - Provider: Aminah Oneal RN)2207 (New Bag - Provider: Joan Ibrahim RN) 0014 (Bag Switched - Provider: Joan Ibrahim RN)0700 (Rate Verify - Provider: Chely Gonzales RN)0800 (Rate Verify - Provider: Chely Gonzales RN)0900 (Rate Verify - Provider: Chely Gonzales RN)1000 (Rate Verify - Provider: Chely Gonzales RN)1100 (Rate Verify - Provider: Chely Gonzales RN)1111 (New Bag - Provider: Chely Gonzales RN)1120 (Stopped - Provider: Chely Gonzales RN)1258 (New Bag - Provider: Chely Gonzales RN)1300 (Rate Verify - Provider: Chely Gonzales RN)1400 (Rate Verify - Provider: Chely Gonzales RN)1500 (Rate Verify - Provider: Chely Gonzales RN)1600 (Rate Verify - Provider: Chely Gonzales RN)1700 (Rate Verify - Provider: Chely Gonzales, RN)1800 (Rate Verify - Provider: Chely Gonzales, RN)2012 (Paused - Provider: Va Grace RN)2012 (Restarted - Provider: Va Grace RN)2100 (Rate Change - Provider: Va Grace RN)2143 (Rate Change - Provider: Va Grace RN)2145 (Bag Switched - Provider: Emma Jiménez RN)2146 (Paused - Provider: Va Grace RN)2146 (Restarted - Provider: Va Grace RN)2148 (Paused - Provider: Va Grace RN)2150 (Restarted - Provider: Va Grace RN)2204 (Rate Verify - Provider: Va Grace RN) 237 (Rate Verify - Provider: Va Grace RN) PRN Medication Order 08/11/2018 08/12/2018 08/13/2018 fentaNYL PF (SUBLIMAZE) 50 mcg/mL injection 25 mcg (CANCELED) 25 mcg, IV, POST-PROCEDURE Q 3 MINUTES PRN, Starting on Thu08/11/18 at 1440, Until Thu08/11/18 at 2103, Pain, Moderate, For pain scale 4-6, Routine, PACU 185 (Given - Provider: Aminah Oneal RN)1899 (Given - Provider: Aminah Oneal, CHIN)1905 (Given - Provider: Aminah Oneal, CHIN) HYDROmorphone (DILAUDID) 2 mg/mL injection 0.3 mg (CANCELED) 0.3 mg, IV, POST-PROCEDURE Q 5 MINUTES PRN, Starting on Thu08/11/18 at 1440, Until Thu08/11/18 at 2103, Pain, Mild, For pain scale 1-3, Routine, PACU 185 (Given - Provider: Aminah Oneal RN)1900 (Given - Provider: Aminah Oneal RN)1905 (Given - Provider: Aminah Oneal RN)1913 (Given - Provider: Dave Gomez RN)1929 (Given - Provider: Dave Gomez RN)1934 (Given - Provider: Dave Gomez RN)1946 (Given - Provider: Dave Gomez RN)1999 (Given - Provider: Dave Gomez RN) lidocaine-EPINEPHrine (XYLOCAINE-EPI) 1 %-1:100,000 20 mL INJECTION (CANCELED) Infiltration, INTRA-PROCEDURE PRN, Starting on Thu08/11/18 at 1412, Until Thu08/11/18 at 2103, prn, Routine, Intra-op 1650 (Given - Provider: Dylon Figueroa MD) morphine 4 mg/mL injection 2 mg 2 mg, IV, EVERY 3 HOURS PRN, Starting on Thu08/11/18 at 2125, Until Thu08/13/18 at 1917, Pain (See admin instructions), Routine 2134 (Given - Provider: Joan Ibrahim RN) 0000 (Given - Provider: Joan Ibrahim RN)0403 (Given - Provider: Joan Ibrahim RN)0752 (Given - Provider: Chely Gonzales, CHIN)1253 (Given - Provider: Chely Gonzales RN)1736 (Given - Provider: Chely Gonzales, CHIN)2232 (Given - Provider: Va Grace RN) 0314 (Given - Provider: Va Grace RN) ondansetron (ZOFRAN) 4 mg/2 mL injection 4 mg 4 mg, IV, EVERY 6 HOURS PRN, Starting on Thu08/11/18 at 2252, Until Thu08/13/18 at 1917, Nausea/Emesis, Routine 2306 (Given - Provider: Joan Ibrahim RN) 0846 (Given - Provider: Chely Gonzales, CHIN)2011 (Given - Provider: Va Grace RN) 0825 (Given - Provider: Zari Alonso RN) oxyCODONE (ROXICODONE) oral solution 7.5 mg 7.5 mg, Oral, EVERY 4 HOURS PRN, Starting on Thu08/11/18 at 2241, Until Thu08/13/18 at 1917, Pain (See admin instructions), Routine 2256 (Given - Provider: Joan Ibrahim RN) 0202 (Given - Provider: Joan Ibrahim RN)0605 (Given - Provider: Joan J Lacadin, RN)0943 (Given - Provider: Chely Gonzales, RN)1518 (Given - Provider: Chely Gonzales, RN)1926 (Given - Provider: Va Grace, RN) 0028 (Given - Provider: Va Grace RN)0601 (Given - Provider: Va Grace RN)0936 (Given - Provider: Zari Alonso, RN)1250 (Given - Provider: Zari Alonso, RN)1626 (Given - Provider: Zari Alonso RN) sodium chloride 0.9 % irrigation solution (CANCELED) INTRA-PROCEDURE PRN, Starting on Thu08/11/18 at 1551, Until Thu08/11/18 at 1840, Routine, Intra-op 1551 (Given - Provider: Dylon Figueroa MD - Comment: Used on field prn for irrigation.) documented in this encounter Care Teams R&D Lab Technician Relationship Specialty Start Date End Date Sg Richards MD [address] [place] [address] PCP - General Internal Medicine 06/10/17 08/13/21 documented as of this encounter
--- OUTSIDE RECORDS SUMMARY | 2024-07-16 13:01 | XMS_ITS | Encounter Summary ---
Author Organization [facility] Address [address] [place] [address] Care Team Providers Care Polygraph Examiner Name Role Phone Sg Richards MD Primary Care Provider [phone] Reason for Visit * Auth/Cert Specialty Diagnoses / Procedures Referred By Contac t Referred To Contact Diagnoses LT. FACIAL CELLULITIS Dylon Fung MD [address] [address] Referral ID Status Reason Start Date Expiration Date Visits Re quested Visits Authorized [id number] 07/23/2018 1 1 Encounter Details Date Type Department Care Team (Latest Contact Info) Description 08/04/2018 10:59 AM [employer] - 08/04/2018 3:00 PM [facility] Hospital Encounter [facility] [address] [place] [address] Dylon Fung MD [address] [address] Discharge Disposition: Home or Self Care Social [...] Sign Reading Time Taken Comments Blood Pressure 104/68 08/04/2018 11:49 AM [employer] Pulse 74 08/04/2018 11:49 AM [employer] Temperature 36.9 ??C (98.4 ??F) 08/04/2018 11:[address] Respiratory Rate 16 08/04/2018 11:49 AM [employer] Oxygen Saturation 97% 08/04/2018 11:49 AM [employer] Inhaled Oxygen Concentration - - Weight 88.6 kg (195 lb 6.4 oz) 08/04/2018 11:49 AM [employer] Height 163.2 cm (5' 4.25 ) 08/04/2018 11:[address] Body Mass Index 33.28 08/04/2018 11:49 AM [employer] documented in this encounter Medications at Time [...] 8 hours as needed for Pain, Moderate. 08/13/2018 ondansetron (ZOFRAN) 4 mg Tablet Take 1 Tablet (4 mg) by mouth every 8 hours as needed for Nausea/Emesis. 40 Tablet 06/23/2018 08/13/2018 oxyCODONE-acetaminophen (PERCOCET) 7.5-325 mg Tablet Take 1 Tablet by mouth every 4 hours as needed for Pain, Moderate May crush tablet and mix to liquid. Max Daily Amount: 6 Tablets 20 Tablet 06/22/2018 08/13/2018 documented as of this encounter OR Notes * Sabrina-OP - Sneha Joya RN - 08/04/2018 11:52 AM CST Potential for anxiety related to surgical intervention Interventions: convey caring/supportive attitude; offer emotional support as needed; provide comfort measures (warm blanket, pillow, quiet environment); allow patient opportunity to verbalize concerns/fears/questions; explore coping behaviors; allow age-specific/special needs family support Expected Outcome: Patient will demonstrate decreased anxiety or adaptive coping strategies Outcome Met:pre-op protocol explained [employer] * Sabrina-OP - Kalyn Hartman RN - 07/26/2018 9:46 AM CST Images from the original note were not included. [facility] Pre-Procedure Instructions PACE PACE Name: Kayla Avila Age: 43 y.o. Please report to the: [x] Surgery Center [] [facility] (2nd Floor) [] Other: Date of Procedure: 08/04/18 Arrive at the time your surgeon's office [...] caffeine after midnight prior to your procedure. ?? You may consume clear fluids up until 4 hours prior to your scheduled procedure time or 2 hours prior to arrival. ?? Limit the clear fluid intake to 12 fluid ounces or equivalent to a soda can. ?? Examples of clear liquids include: Water; Gatorade or similar clear fluids with electrolytes arepreferred; carbonated beverages such as soda or sparkling water; tea and black coffee (do not use milk or cream), clear fruit juices without pulp such as apple, cranberry or grape are allowed yet discouraged due to the acidity of the juices. WITHIN 24 HOURS PRIOR TO SURGERY ?? [...] surgery. ?? 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 DO NOT [...] (MYSOLINE) 50 mg tablet Continue taking as prescribed/BT ??? pantoprazole (PROTONIX) 40 mg Tablet, Delayed Release (E.C.) Take morning of surgery with sip of water ??? traZODone (DESYREL) 100 mg Oral tablet Continue taking as prescribed/BT ??? gabapentin (NEURONTIN) 600 mg Oral tablet Take morning of surgery with sip of water [employer] documented in this encounter Plan of Treatment Not on file documented as of this encounter Procedures Procedure Name Priority Date/Time Associated Diagnosis Comments POC , URINE Routine 08/04/2018 12:20 PM [employer] EDUCATION ANESTHESIA (ADULT) Routine 07/26/2018 9:55 AM [employer] documented in this encounter Results * POC , URINE (08/04/2018 12:20 PM [employer]) HCG QUAL URINE Negative Negative 08/04/2018 1:39 PM [employer] [facility] [employer] [facility] Urine 08/04/2018 12:2 0 PM [employer] 08/04/2018 1:38 PM [employer] Dylon Fung MD POINT OF CARE TESTIN Cele [facility] [employer] [facility]# [id number] [place] [address] * EDUCATION ANESTHESIA (ADULT) - DARRELL (07/26/2018 9:55 AM [employer]) Education Name ANESTHESIA (ADULT) [facility] [employer]UC[employer] INTERFACE Education URL [email or web address] DARRELL EDUCATION INTERFACE EDUCATION ACCESS CODE [id number] [facility] [employer]UC[employer] INTERFACE EDUCATION ISSUE DATE Jul 26, 2018 [facility] EDUCATION INTERFACE EDUCATION START DATE [facility] EDUCATION INTERFACE EDUCATION COMPLETED DATE This program was not started and flagged as on: Aug 26, 2018 [facility] [employer]UC[employer] INTERFACE EDUCATION EXPIRATION DATE Aug 25, 2018 [facility] EDUCATION INTERFACE EDUCATION MESSAGE EVENT [facility]LL EDUCATION INTERFACE 07/26/2018 9:55 AM [employer] Dylon Fung MD EXTERNAL EDUCATION O RDERABLES Performing Organization Address City/State/[facility] Co de Phone Number DARRELL EDUCATION INTERFACE documented in this encounter Visit Diagnoses Not on filedocumented in this encounter Administered Medications Inactive Administered Medications - up to 3 most recent administrations Medication Order MAR Action Action Date Dose Rate Site heparin, porcine (pf) 10 unit/mL IV syringe 50-150 Units 50-150 Units, IV, SEE ADMIN INSTRUCTIONS, Starting on Thu08/04/18 at 1448, Until Thu08/04/18 at 1712, Routine Given 08/04/2018 2:56 PM [employer] 50 Units lactated Ringers solution IV, at 125 mL/hr, PRE-PROCEDURE CONTINUOUS, Starting on Thu08/04/18 at 1200, Until Thu08/04/18 at 1712, Routine New Bag 08/04/2018 12:09 PM [employer] 125 mL/hr sodium chloride flush injection 10-30 mL 10-30 mL, IV, SEE ADMIN INSTRUCTIONS, Starting on Thu08/04/18 at 1448, Until Thu08/04/18 at 1712, Routine Given 08/04/2018 2:56 PM [employer] 10 mL documented in this encounter Active and Recently Administered Medications Times are shown in [employer]. Scheduled Medication Order 08/02/2018 08/03/2018 08/04/2018 heparin, porcine (pf) 10 unit/mL IV syringe 50-150 Units 50-150 Units, IV, SEE ADMIN INSTRUCTIONS, Starting on Thu08/04/18 at 1448, Until Thu08/04/18 at 1712, Routine 1456 (Given - Provid er: Yarelis Wilkinson, CHIN) sodium chloride flush injection 10-30 mL 10-30 mL, IV, SEE ADMIN INSTRUCTIONS, Starting on Thu08/04/18 at 1448, Until Thu08/04/18 at 1712, Routine 1456 (Given - Provid er: Yarelis Wilkinson RN) Continuous Medication Order 08/02/2018 08/03/2018 08/04/2018 lactated Ringers solution IV, at 125 mL/hr, PRE-PROCEDURE CONTINUOUS, Starting on Thu08/04/18 at 1200, Until Thu08/04/18 at 1712, Routine 1209 (New Bag - Prov ider: Sneha Joya RN) documented in this encounter Care Teams Polygraph Examiner Relationship Specialty Start Date End Date Sg Richards MD [address] [place] [address] PCP - General Internal Medicine 06/10/17 08/13/21 documented as of this encounter
--- OUTSIDE RECORDS SUMMARY | 2024-07-16 13:01 | XMS_ITS | Encounter Summary ---
Author Organization [facility] Address [address] [place] [address] Care Team Providers Care Casing Fluid Tender Name Role Phone Sg Richards MD Primary Care Provider [phone] Reason for Visit * Auth/Cert Specialty Diagnoses / Procedures Referred By Contac t Referred To Contact Diagnoses LT. FACIAL CELLULITIS Dylon Fiugeroa MD [address] [address] Referral ID Status Reason Start Date Expiration Date Visits Re quested Visits Authorized [id number] 08/04/2018 1 1 Encounter Details Date Type Department Care Team (Latest Contact Info) Description 08/11/2018 11:18 AM SURVEILLANCE SUPERVISOR - 08/13/2018 5:17 PM SURVEILLANCE SUPERVISOR Hospital Encounter [facility] Transitional [facility] Unit [address] [place] [id number] Dylon Figueroa MD [facility] [address] [address] Discharge Disposition: Home Health Care Svc Social [...] Sign Reading Time Taken Comments Blood Pressure 114/76 08/13/2018 3:16 PM SURVEILLANCE SUPERVISOR Pulse 70 08/13/2018 3:16 PM SURVEILLANCE SUPERVISOR Temperature 36.4 ??C (97.5 ??F) 08/13/2018 3:16 PM CS T Respiratory Rate 13 08/13/2018 3:16 PM SURVEILLANCE SUPERVISOR Oxygen Saturation 96% 08/13/2018 3:16 PM SURVEILLANCE SUPERVISOR Inhaled Oxygen Concentration - - Weight 89.3 kg (196 lb 12.8 oz) 019 11:51 AM SURVEILLANCE SUPERVISOR Height 160 cm (5' 3 ) 08/11/2018 11:51 AM SURVEILLANCE SUPERVISOR Body Mass Index 34.86 08/11/2018 11:51 AM SURVEILLANCE SUPERVISOR documented in this encounter Discharge Summaries * Wanda Peres DDS - 08/13/2018 12:05 PM CST Surgical Discharge Summary Patient Name Kayla Avila Age 43 y.o. Gender female Date of 1975 [facility] [id number] Attending Physician Dylon Figueroa MD Discharging Physician [...] 12:05 PM This discharge took 10 minutes EILLANCE SUPERVISOR documented in this encounter Discharge Instructions * Discharge Instructions* Wanda Peres DDS - 08/13/2018 12:07 AM SURVEILLANCE SUPERVISOR SAFETY For the next 24 hours, you [...] wound immersion. FOLLOW-UP Call the office at [phone] to make an appointment for 7 days after surgery. Once you are home, if you develop any of the following symptoms, call your physician. Difficulty in breathing, persistent nausea or vomiting, profuse bleeding at incision site, pain that is unusual, temperature greater than 101 degrees. If you cannot contact your physician, call or come to the Emergency Room at [place] ([phone]) or the nearest Emergency Room. In an emergency, Call 911 EILLANCE SUPERVISOR documented in this encounter Medications at Time [...] Supine Pulse: 79 70 67 76 Resp: 21 16 12 16 Temp: 98.7 ??F (37.1 ??C) [...] Figueroa next week ?? Wanda Peres DDS EILLANCE SUPERVISOR * Wanda Peres DDS - 08/12/2018 3:00 [...] 4. D/C home tomorrow Wanda Peres DDS EILLANCE SUPERVISOR * Va Quinones RT - 08/12/2018 1:[address] facial bones (TMJ concept) protocol was completed. EILLANCE SUPERVISOR * Joan Ibrahim RN - 08/11/2018 11:00 PM CST Undress and Assess performed by: maksim Admission or upon transfer to: pacu to [facility] ~~~~~~~~~~~~~~~~~~~~~~~~~~~~ Is the patient a paraplegic/quadriplegic? Does [...] from patient Patient refused Disposition of belongings/valuables: EILLANCE SUPERVISOR documented in this encounter H&P Notes * Wanda Peres DDS - 08/11/2018 3:14 PM CST I have reviewed the last H&P and examined the patient today and there are no changes. Wanda Peres DDS EILLANCE SUPERVISOR documented in this encounter OR Notes * Sabrina-OP - Dave Gomez RN - 08/11/2018 7:35 PM CST Potential for pain related to surgical/procedural intervention Interventions: Assess level of pain/comfort utilizing verbal/nonverbal pain scales; assess culturalor anglican indicators attached to pain; administer pain medications [...] status compatible with preoperative status Outcome Met EILLANCE SUPERVISOR * Sabrina-OP - Carla Villatoro RN - 08/05/2018 9:08 AM CST SURGERY ORDERS UNAVAILABLE DURING PACE PHONE INTERVIEW. CALLED DR FIGUEROA'S OFFICE AND SPOKE TO SAMIRA, REQUESTING ORDERS FOR DOS. EILLANCE SUPERVISOR * Sabrina-OP - Carla Villatoro RN - 08/05/2018 9:04 AM CST CALLED PATIENT REGARDING DOS, 08/11/18. PATIENT STATES SHE HAS NO CHANGES IN HER HISTORY OR MEDICATIONS SINCE LAST SURGERY DATE, 08/04/18. STATES SURGERY WAS CANCELLED ON 08/04/18 DUE TO NOT HAVING THEINSTRUMENT NEEDED . PATIENT STATES SHE HAS NO QUESTIONS ABOUT PRE PROCEDURAL INSTRUCTIONS, STATES SHE UNDERSTANDS ALL PRE PROCEDURAL INSTRUCTIONS. EILLANCE SUPERVISOR * Operative Report - Wanda Peres DDS - 08/04/2018 6:36 PM SURVEILLANCE SUPERVISOR Operative Report Kayla Avila [id number] Pre-operative Diagnosis: LT. FACIAL CELLULITIS Post-operative Diagnosis: [...] CULTURE WITH STAIN Dylon Figueroa MD 08/11/2018 175 A : Left Mandible Hyperaesthetic Bone Tissue Mandible PATHOLOGY Dylon Figueroa MD 08/11/2018 1712 B : Left mandible coronoid process Tissue Mandible PATHOLOGY Dylon Figueroa MD 08/11/2018 1754 Implants: Implant Name Type Inv. Item Serial No. Optical Instrument Repairer Lot No. LRB No. Used Action KLS MMF MANDIBLE SCREWS Screw STERILIZED JUN 04 KLS MARI LP LOAD 23 N/A 5 Explanted SCREW MMF MAXDRV 2.0X12MM [id number] - [id number] Screw SCREW MMF MAXDRV 2.0X12MM [id number] KLSMARTIN LP N/A 2 Explanted PUTTY DBX DBM 1ML [id number] - [id number] Tissue PUTTY DBX DBM 1ML [id number] MUSCULOSKELETAL TRANSPLANT FOU N/A 1 Implanted [place] HV Bone Cement with Gentamicin (G-HV) Cement [employer] [id number] N/A 1 Implanted Mandibular prosthesis plate Left 1 Explanted Estimated Blood Loss: Minimal Disposition: PACU Wanda Peres DDS EILLANCE SUPERVISOR documented in this encounter Miscellaneous Notes * Care Plan - Aminah Oneal RN - 08/11/2018 6:44 PM CST Potential for pain related to surgical/procedural intervention Interventions: Assess level of pain/comfort utilizing verbal/nonverbal pain scales; assess culturalor anglican indicators attached to pain; administer pain medications [...] no bleeding or hematoma from surgical site EILLANCE SUPERVISOR * Care Plan - Barbara Law RN [...] pain/comfort utilizing verbal/nonverbal pain scales; assess culturalor anglican indicators attached to pain; administer pain medications as prescribed; utilize non-pharmacologic pain control and comfort measures Expected Outcome: Patient demonstrates and reports adequate pain control Outcome Met: denies any pain EILLANCE SUPERVISOR documented in this encounter Plan of Treatment Not on file documented as of this encounter Procedures Procedure Name Priority Date/Time Associated Diagnosis Comments CT 3D RECON W INDEP WORKSTATION Routine 08/12/2018 1:[address] SINUS FACIAL BONES WO CONTRAST Stat 08/12/2018 12:45 PM SURVEILLANCE SUPERVISOR PATHOLOGY Pathology 08/11/2018 5:12 PM SURVEILLANCE SUPERVISOR ORALMAXILLOFACIAL DEVICE REMOVAL 08/11/2018 2:56 PM SURVEILLANCE SUPERVISOR LT. FACIAL CELLULITIS Case Notes WORK COMP--APPROVED PER SYLVESTER-- CPT 20072 POC , URINE Routine 08/11/2018 12:15 PM SURVEILLANCE SUPERVISOR documented in this encounter Results * CT 3D RECON W INDEP WORKSTATION (08/12/2018 1:55 PM SURVEILLANCE SUPERVISOR) Anatomical Region Laterality Modality Computed Tomogra phy 08/13/2018 12:2 8 AM SURVEILLANCE SUPERVISOR Impressions 08/13/2018 9:59 AM SURVEILLANCE SUPERVISOR IMPRESSION: 3-dimensional shaded surface reformatted images of the facial bones. DICTATION LOCATION: [facility] The examination was performed with the adjustment of mA according to the patient size and/or the use of Iterative Reconstruction Technique. Narrative 08/13/2018 9:[address] 3D RECONSTRUCTIONS DATE: ??08/12/2018 11:45 AM [...] images of the facial bones. DICTATION LOCATION: [facility] The examination was performed with the adjustment of mA according to the patient size and/or the use of Iterative Reconstruction Technique. Wanda Wootenwducherroseu S CT ORDERABLES * CT SINUS FACIAL BONES WO CONTRAST (08/12/2018 12:45 PM SURVEILLANCE SUPERVISOR) Anatomical Region Laterality Modality Head Computed Tomogra phy 08/12/2018 1:55 PM SURVEILLANCE SUPERVISOR Impressions 08/12/2018 2:36 PM SURVEILLANCE SUPERVISOR IMPRESSION: 1. Postoperative changes, as above. 2. Chronic exam performed for treatment planning purposes. The examination was performed with the adjustment of mA according to the patient size and/or the use of Iterative Reconstruction Technique. DICTATION LOCATION: Location 1 [facility] 08/12/2018 2:[address] SINUS WITHOUT CONTRAST WITH REFORMATTED IMAGES [...] of Iterative Reconstruction Technique. DICTATION LOCATION: Location 1 - [facility] Wanda Gowducheruvu DDS CT ORDERABLES * PATHOLOGY (08/11/2018 5:12 PM SURVEILLANCE SUPERVISOR) CASE REPORT Surgical Pathology Report ? Case: [id number] ? Authorizing Provider: ??Dylon Figueroa MD ?Collected: ? 08/11/2018 05:12 PM ? Ordering Location: ? [facility] ?Received: ?08/12/2018 08:24 AM ? Operating Room ? Pathologist: ? Codi Smith MD ? Specimens: ?? A) - Mandible, Left Mandible Hyperaesthetic Bone ? B) - Mandible, Left mandible coronoid process ? 08/17/2018 2:28 PM [facility] FINAL DIAGNOSIS Bone, left mandible hyperaesthetic bone, biopsy: - Mild reactive changes. Bone, left mandible coronoid process, biopsy: - Mild reactive changes. 08/17/2018 2:28 PM [facility] IMEN DESCRIPTION (A) Left mandible hyperaesthetic bone; (B) left mandible coronoid process. 08/17/2018 2:28 PM [facility] OPERATIVE PROCEDURE Oral maxillofacial device removal left mandible hardware. 08/17/2018 2:28 PM [facility] CLINICAL INFORMATION Left facial cellulitis. 08/17/2018 2:28 PM [facility] GROSS DESCRIPTION Two containers are received labeled [...] submitted entirely in cassette B1 for decalcification. KLA/phc 08/17/2018 2:28 PM [facility] MICROSCOPIC DESCRIPTION Review of slides labeled Kayla Avila and [id number]. Sections of the left mandible hyperesthetic bone and left mandible coronoid process show fragments of dense bone with mild reactive changes and skeletal muscle. There is no evidence of acute inflammation, dysplasia or malignancy. The bone marrow shows trilineage hematopoiesis. 08/17/2018 2:28 PM [facility] COMMENT Special stain and/or immunohistochemical results are interpreted with controls that demonstrate appropriate staining reactions. Note on use of immunocytochemistry reagents: This test was developed and its performance characteristic determined by [facility], Department of Laboratory Medicine. It has [...] WF, WB and WH are performed by [address], [address]. All other case types are performed by [address], [address]. 08/17/2018 2:28 PM [facility] Tissue ENTIRE MANDIBLE / Unknown Collection / Unknown 08/11/2018 5:12 PM SURVEILLANCE SUPERVISOR 08/12/2018 8:24 AM SURVEILLANCE SUPERVISOR Tissue specimen (specimen) ENTIRE MANDIBLE / Unknown 08/11/2018 5:54 PM SURVEILLANCE SUPERVISOR 08/12/2018 8:24 AM SURVEILLANCE SUPERVISOR Dylon Figueroa MD PATHOLOGY/CYTOLOGY O RDERABLES [facility]# [id number] [address] [place] [address] * POC , URINE (08/11/2018 12:15 PM SURVEILLANCE SUPERVISOR) HCG QUAL URINE Negative Negative 08/11/2018 12:47 PM SURVEILLANCE SUPERVISOR [facility] Urine 08/11/2018 12:1 5 PM SURVEILLANCE SUPERVISOR 08/11/2018 12:47 PM SURVEILLANCE SUPERVISOR Dylon Figueroa MD POINT OF CARE TESTIN G Performing Organization Address [facility] Co de Phone Number [facility] [id number] [address] [place] [address] documented in this encounter Visit Diagnoses Not on filedocumented in this encounter Administered Medications Inactive Administered Medications - up to 3 most recent administrations Medication Order MAR Action Action Date Dose Rate Site buPROPion HCl (WELLBUTRIN SR) SR 12 hour tablet 150 mg 150 mg, Oral, TWO TIMES DAILY, First dose on Thu08/11/18 at 2200, Until Discontinued, Routine Given 08/13/2018 8:29 AM SURVEILLANCE SUPERVISOR 150 mg Given 08/12/2018 8:03 PM SURVEILLANCE SUPERVISOR 150 mg Given 08/12/2018 8:34 AM SURVEILLANCE SUPERVISOR 150 mg ceFAZolin (ANCEF) 1,000 mg in dextrose (iso-osmotic) 50 mL IVPB (PREMIX) 1,000 mg, IV, EVERY 8 HOURS, First dose on Thu08/11/18 at 2300, Until Discontinued, Routine, Antibiotic Indication: Wound / Cellulitis / Abscess New Bag 08/12/2018 8:36 AM SURVEILLANCE SUPERVISOR 1,000 mg 10 0 mL/hr New Bag 08/12/2018 2:26 AM SURVEILLANCE SUPERVISOR 1,000 mg 100 mL/hr cefTRIAXone (ROCEPHIN) 2,000 mg in dextrose (iso-osmotic) 50 mL IVPB 2,000 mg, IV, EVERY 24 HOURS (DAILY), First dose on Thu08/12/18 at 0300, Until Discontinued, Routine, Antibiotic Indication: Other: Enter in Comments, Antibiotic 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: 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 New Bag 08/13/2018 3:16 AM SURVEILLANCE SUPERVISOR 2,000 mg 100 mL/hr Rate Verify 08/12/2018 3:31 AM SURVEILLANCE SUPERVISOR 100 mL/hr New Bag 08/12/2018 3:30 AM SURVEILLANCE SUPERVISOR 2,000 mg 100 mL/hr fentaNYL PF (SUBLIMAZE) 50 mcg/mL injection 25 mcg 25 mcg, IV, POST-PROCEDURE Q 3 MINUTES PRN, Starting on Thu08/11/18 at 1440, Until Thu08/11/18 at 2103, Pain, Moderate, For pain scale 4-6, Routine, PACU Given 08/11/2018 7:06 PM SURVEILLANCE SUPERVISOR 25 mcg Given 08/11/2018 7:00 PM SURVEILLANCE SUPERVISOR 25 mcg Given 08/11/2018 6:54 PM SURVEILLANCE SUPERVISOR 25 mcg gabapentin (NEURONTIN) capsule 1,200 mg 1,200 mg, Oral, THREE TIMES DAILY, First dose on Thu08/11/18 at 2200, Until Discontinued, Routine Given 08/13/2018 12:35 PM SURVEILLANCE SUPERVISOR 1,200 mg Given 08/13/2018 8:27 AM SURVEILLANCE SUPERVISOR 1,200 mg Given 08/12/2018 8:03 PM SURVEILLANCE SUPERVISOR 1,200 mg HYDROmorphone (DILAUDID) 2 mg/mL injection 0.3 mg 0.3 mg, IV, POST-PROCEDURE Q 5 MINUTES PRN, Starting on Thu08/11/18 at 1440, Until Thu08/11/18 at 2103, Pain, Mild, For pain scale 1-3, Routine, PACU Given 08/11/2018 8:00 PM SURVEILLANCE SUPERVISOR 0.3 mg Given 08/11/2018 7:47 PM SURVEILLANCE SUPERVISOR 0.3 mg Given 08/11/2018 7:35 PM SURVEILLANCE SUPERVISOR 0.3 mg ibuprofen (MOTRIN) tablet 600 mg 600 mg, Oral, EVERY 8 HOURS, First dose on Thu08/11/18 at 2200, Until Discontinued, Routine, Post-op - Floor Given 08/13/2018 1:00 PM SURVEILLANCE SUPERVISOR 600 mg lactated ringers infusion IV, at 125 mL/hr, POST-PROCEDURE CONTINUOUS, Starting on Thu08/11/18 at 1445, Until Thu08/13/18 at 1917, Routine, PACU Rate Verify 08/13/2018 2:38 AM SURVEILLANCE SUPERVISOR 125 mL/hr Rate Verify 08/12/2018 10:05 PM SURVEILLANCE SUPERVISOR 125 mL/hr Restarted 08/12/2018 9:51 PM SURVEILLANCE SUPERVISOR 125 mL/hr lactated Ringers solution IV, at 150 mL/hr, PRE-PROCEDURE ONCE, 1 dose, Starting on Thu08/11/18 at 1218, Until Thu08/12/18 at 0734, Routine New Bag 08/11/2018 12:35 PM SURVEILLANCE SUPERVISOR 150 mL/hr lamoTRIgine (LaMICtal) tablet 350 mg 350 mg, Oral, TWO TIMES DAILY, First dose on Thu08/11/18 at 2200, Until Discontinued, Routine Given 08/13/2018 8:29 AM SURVEILLANCE SUPERVISOR 350 mg Given 08/12/2018 8:03 PM SURVEILLANCE SUPERVISOR 350 mg Given 08/12/2018 8:35 AM SURVEILLANCE SUPERVISOR 350 mg levETIRAcetam (KEPPRA) tablet 2,000 mg 2,000 mg, Oral, TWO TIMES DAILY, First dose on Thu08/11/18 at 2200, Until Discontinued, Routine Given 08/13/2018 8:27 AM SURVEILLANCE SUPERVISOR 2,000 mg Given 08/12/2018 8:03 PM SURVEILLANCE SUPERVISOR 2,000 mg Given 08/12/2018 8:34 AM SURVEILLANCE SUPERVISOR 2,000 mg morphine 4 mg/mL injection 2 mg 2 mg, IV, EVERY 3 HOURS PRN, Starting on Thu08/11/18 at 2125, Until Thu08/13/18 at 1917, Pain (See admin instructions), Routine Given 08/13/2018 3:14 AM SURVEILLANCE SUPERVISOR 2 mg Given 08/12/2018 10:32 PM SURVEILLANCE SUPERVISOR 2 mg Given 08/12/2018 5:36 PM SURVEILLANCE SUPERVISOR 2 mg ondansetron (ZOFRAN) 4 mg/2 mL injection 4 mg 4 mg, IV, EVERY 6 HOURS PRN, Starting on Thu08/11/18 at 2252, Until Thu08/13/18 at 1917, Nausea/Emesis, Routine Given 08/13/2018 8:25 AM SURVEILLANCE SUPERVISOR 4 mg Given 08/12/2018 8:12 PM SURVEILLANCE SUPERVISOR 4 mg Given 08/12/2018 8:46 AM SURVEILLANCE SUPERVISOR 4 mg oxyCODONE (ROXICODONE) oral solution 7.5 mg 7.5 mg, Oral, EVERY 4 HOURS PRN, Starting on Thu08/11/18 at 2241, Until Thu08/13/18 at 1917, Pain (See admin instructions), Routine Given 08/13/2018 4:26 PM SURVEILLANCE SUPERVISOR 7.5 mg Given 08/13/2018 12:50 PM SURVEILLANCE SUPERVISOR 7.5 mg Given 08/13/2018 9:36 AM SURVEILLANCE SUPERVISOR 7.5 mg primidone (MYSOLINE) tablet 50 mg 50 mg, Oral, DAILY AT BEDTIME, First dose on Thu08/11/18 at 2200, Until Discontinued, Routine Given 08/12/2018 8:03 PM SURVEILLANCE SUPERVISOR 50 mg Given 08/11/2018 11:18 PM SURVEILLANCE SUPERVISOR 50 mg traZODone (DESYREL) tablet 100 mg 100 mg, Oral, DAILY AT BEDTIME, First dose on Thu08/11/18 at 2200, Until Discontinued, Routine Given 08/12/2018 8:02 PM SURVEILLANCE SUPERVISOR 100 mg Given 08/11/2018 11:22 PM SURVEILLANCE SUPERVISOR 100 mg documented in this encounter Active and Recently Administered Medications Times are shown in SURVEILLANCE SUPERVISOR. 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 0330 (New Bag [...] Ibrahim RN)1300 (Refused - Provider: Chely Gonzales, RN)2100 (Refused - Provider: Va Grace RN) 0500 (Refused - Provider: Va Grace RN)1300 (Given - Provider: Zari Alonso RN) lactated Ringers solution (COMPLETED) IV, at 150 mL/hr, PRE-PROCEDURE ONCE, 1 dose, Starting on Thu08/11/18 at 1218, Until Dhara 08/12/18 at 0734, Routine 1235 (New Bag - Provider: Barbara Law, CHIN) 0734 (Stopped - Provider: Chely Gonzales, CHIN - Comment: before shift) lamoTRIgine (LaMICtal) tablet 350 mg 350 mg, Oral, TWO TIMES DAILY, First dose on Thu08/11/18 at 2200, Until Discontinued, Routine 2319 (Given - Provider: Joan Ibrahim RN) 0835 (Given - Provider: Chely Gonzales, RN)2002 (Given - Provider: Va Grace RN) 08 (Given - Provider: Zari Alonso, CHIN) levETIRAcetam (KEPPRA) tablet 2,000 mg 2,000 mg, Oral, TWO TIMES DAILY, First dose on Thu08/11/18 at 2200, Until Discontinued, Routine 2357 (Given - Provider: Joan Ibrahim RN) 0834 (Given - Provider: Chely Gonzales, CHIN)2002 (Given - Provider: Va Grace RN) 08 (Given - Provider: Zari Alonso, CHIN) primidone (MYSOLINE) tablet 50 mg 50 mg, Oral, DAILY AT BEDTIME, First dose on Thu08/11/18 at 2200, Until Discontinued, Routine 2318 (Given - Provider: Joan Ibrahim RN) 2002 (Given - Provider: Va Grace, CHIN) traZODone (DESYREL) tablet 100 mg 100 [...] Gonzales RN)1700 (Rate Verify - Provider: Chely Gonzales RN)1800 (Rate Verify - Provider: Chely Gonzales RN)2012 (Paused - Provider: Va Grace RN)2012 (Restarted - Provider: Va Grace RN)2100 (Rate Change - Provider: Va Grace RN)214 (Rate Change - Provider: Va Grace RN)214 (Bag Switched - Provider: Emma Jiménez RN)214 (Paused - Provider: aV Grace RN)214 (Restarted - Provider: Va Grace RN)214 (Paused - Provider: Va Grace RN)215 (Restarted - Provider: Va Grace RN)2205 (Rate Verify - Provider: Va Grace RN) 0238 (Rate Verify - Provider: Va Grace RN) PRN Medication Order 08/11/2018 08/12/2018 08/13/2018 fentaNYL PF (SUBLIMAZE) 50 mcg/mL injection 25 mcg (CANCELED) 25 mcg, IV, POST-PROCEDURE Q 3 MINUTES PRN, Starting on Thu08/11/18 at 1440, Until Thu08/11/18 at 2103, Pain, Moderate, For pain scale 4-6, Routine, PACU 1854 (Given - Provider: Aminah Oneal, RN)1900 (Given - Provider: Aminah Oneal, CHIN)190 (Given - Provider: Aminah Oneal RN) HYDROmorphone (DILAUDID) 2 mg/mL injection 0.3 mg (CANCELED) 0.3 mg, IV, POST-PROCEDURE Q 5 MINUTES PRN, Starting on Thu08/11/18 at 1440, Until Thu08/11/18 at 2103, Pain, Mild, For pain scale 1-3, Routine, PACU 1854 (Given - Provider: Aminah Oneal, RN)190 (Given - Provider: Aminah Oneal RN)190 (Given - Provider: Aminah Oneal RN)1913 (Given [...] instructions), Routine 2134 (Given - Provider: Joan Ibrahim, CHIN) 0000 (Given - Provider: Joan Ibrahim RN)0403 (Given - Provider: Joan Ibrahim RN)0752 (Given - Provider: Chely Gonzales, RN)1253 (Given - Provider: Chely Gonzales, RN)1736 (Given - Provider: Chely Gonzales, RN)2232 (Given - Provider: Va Grace, RN) 0314 (Given - Provider: Va Grace RN) ondansetron (ZOFRAN) 4 mg/2 mL injection 4 mg 4 mg, IV, EVERY 6 HOURS PRN, Starting on Thu08/11/18 at 2252, Until Thu08/13/18 at 1917, Nausea/Emesis, Routine 2306 (Given - Provider: Joan Ibrahim RN) 0846 (Given - Provider: Chely Gonzales, RN)2011 (Given - Provider: Va Grace RN) 0825 (Given - Provider: Zari Alonso, CHIN) oxyCODONE (ROXICODONE) oral solution 7.5 mg 7.5 mg, Oral, EVERY 4 HOURS PRN, Starting on Thu08/11/18 at 2241, Until Thu08/13/18 at 1917, Pain (See admin instructions), Routine 2256 (Given - Provider: Joan Ibrahim RN) 0202 (Given - Provider: Joan Ibrahim RN)0605 (Given - Provider: Joan Ibrahim RN)0943 (Given - Provider: Chely Gonzales, RN)1518 (Given - Provider: Chely Gonzales, RN)1926 (Given - Provider: Va Grace RN) 0028 (Given - Provider: Va Grace RN)0601 (Given - Provider: Va Grace RN)0936 (Given - Provider: Zari Alonso, CHIN)1250 (Given - Provider: Zari Alonso, CHIN)1626 (Given - Provider: Zari Alonso RN) sodium chloride 0.9 % irrigation solution (CANCELED) INTRA-PROCEDURE PRN, Starting on Thu08/11/18 at 1551, Until Thu08/11/18 at 1840, Routine, Intra-op 1551 (Given - Provider: Dylon Figueroa MD - Comment: Used on field prn for irrigation.) documented in this encounter Care Teams Casing Fluid Tender Relationship Specialty Start Date End Date Sg Richards MD [address] [place] [address] PCP - General Internal Medicine 06/10/17 08/13/21 documented as of this encounter
--- OUTSIDE RECORDS SUMMARY | 2024-07-16 13:01 | XMS_ITS | Encounter Summary ---
Author Organization [facility] Address [address] [place] [address] Care Team Providers Care Jewel Inspector Name Role Phone Kyle Rodríguez MD Primary Care Provider [phone] Reason for Visit * Outpatient Services (Routine) - Closed Specialty Diagnoses / Procedures Referred By Contac t Referred To Contact CT Scan Diagnoses Swelling, mass, or lump in head and neck Procedures CT SINUS FACIAL BONES WO CONTRAST CT HEAD MAXILLOFACIAL WO CONTRAST CT HEAD MAXILLOFACIAL WO CONTRAST CT HEAD MAXILLOFACIAL WO CONTRAST Dylon Fung MD [address] [address] Referral ID Status Reason Start Date Expiration Date Visits Re quested Visits Authorized [id number] Closed 11/20/2014 12/21/2015 1 1 Encounter Details Date Type Department Care Team (Latest Contact Info) Description 11/20/2014 10:15 AM CDT - 11/20/2014 11:59 PM T Hospital Encounter [facility] CT Scan S [facility] [address] [place] [id number] Dylon Fung MD [address] [address] Discharge Disposition: Home or Self [...] by mouth 2 times daily. oxyCODONE-acetaminophen (PERCOCET) 5-325 mg Oral tablet Take [...] Take 20 mg by mouth daily. 06/21/2018 HYDROcodone-acetaminophe n (NORCO) 7.5-325 mg Oral Tab Take 2 Tabs by mouth every 4 hours as needed. 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 Surface outpouching of skin at external orifice of external auditory canal as described above. Appearance of the prosthetic TMJ is normal and unchanged since the prior exam. DLP: 139.52 mGy-cm Dictated from Location 1: [facility] 11/23/2014 11:[address] SCAN SINUS AND FACIAL BONES, NONCONTRAST, 11/20/2014 I dictated this case on Thursday11/20/2014 and for uncertain reasons this has reappeared as undictated. Ferrer images were made on Thursday at the time of the dictation. ?? HISTORY: Swelling, mass, or lump in head and neck. 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 COMPARISON: Comparison is made to a CT of temporal bone done 07/16/2015. 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 Superior to this there is a relatively radiolucent articular surface secured to the glenoid with metal screws. The position of left mandibular condylar head appears unchanged. The prosthesis attachment to the vertical portion of the left hemimandible appears normal. There is some ossification in the left masseter muscle, which may be heterotopic bone. Since the prior examination, there is increased thickening of the left external auditory canal. There is a coved out area at the dorsal aspect of the glenoid. There is no cyst per se. There are some tiny calcified areas within this coved out portion. The left external auditory canal is obscured by this soft tissue swelling at its anterior aspect. There is also some redundancy of the skin at the external orifice of the external auditory canal. Procedure Note Dajuan Mcdonough MD - 11/23/2014 CT SCAN SINUS AND FACIAL BONES, NONCONTRAST, 11/20/2014 I dictated this case on Thursday11/20/2014 and for uncertain reasons this has reappeared as undictated. Ferrer images were made on Thursday at the time of the dictation. HISTORY: Swelling, mass, or lump in head and neck. 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 COMPARISON: Comparison is made to a CT of temporal bone done 07/16/2015. 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 Superior to this there is a relatively radiolucent articular surface secured to the glenoid with metal screws. The position of left mandibular condylar head appears unchanged. The prosthesis attachment to the vertical portion of the left hemimandible appears normal. There is some ossification in the left masseter muscle, which may be heterotopic bone. Since the prior examination, there is increased thickening of the left external auditory canal. There is a coved out area at the dorsal aspect of the glenoid. There is no cyst per se. There are some tiny calcified areas within this coved out portion. The left external auditory canal is obscured by this soft tissue swelling at its anterior aspect. There is also some redundancy of the skin at the external orifice of the external auditory canal. IMPRESSION IMPRESSION: Increase in amount of soft tissue swelling dorsal to left temporomandibular joint with obscuration of the left external auditory canal. Surface outpouching of skin at external orifice of external auditory canal as described above. Appearance of the prosthetic TMJ is normal and unchanged since the prior exam. 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
--- OUTSIDE RECORDS SUMMARY | 2024-07-16 13:01 | XMS_ITS | Encounter Summary ---
Author Organization [facility] Address [address] [place] [address] Care Team Providers Care Pump House Technician Name Role Phone Kyle Rodríguez MD Primary Care Provider [phone] Encounter Details Date Type Department Care Team (Latest Contact Info) Description 10/26/2012 10:22 AM CDT - 10/26/2012 11:59 PM CDT Hospital Encounter [facility] [address] [place] [id number] Gustavo Fung MD NO ADDRESS ON FILE Discharge Disposition: Home or Self Care Social [...] Sign Reading Time Taken Comments Blood Pressure 132/82 10/26/2012 11:05 AM CDT Pulse 97 10/26/2012 11:05 AM CDT Temperature - - Respiratory Rate - - Oxygen Saturation 98% 10/26/2012 11:05 AM CDT Inhaled Oxygen Concentration - - Weight 97.1 kg (214 lb) 10/26/2012 11:05 AM CDT Height 162.6 cm (5' 4 ) 10/26/2012 11:05 AM CDT Body Mass Index 36.73 10/26/2012 11:05 AM CDT documented in this encounter Medications at [...] needed. 05/25/2015 documented as of this encounter OR Notes * OR Anesthesia - Anne Crump FNP - 10/26/2012 11:23 AM CDT Pre-Procedure Anesthesiology Consultation and Evaluation (PACE) Service 10/26/2012 11:23 AM Name: Kayla Avila Age: 37 y.o. Sex: female CSN: [id number] Procedure:Excise left auricle fistula, cadaveric bone graft Surgeon:Kenton Allergies Allergen Reactions ??? Erythromycin Seizure ??? Other Drug (Unclassified Drug) Other (See Comments) States ilozone caused eyes to roll back in head & stopped breathing Current Outpatient Prescriptions Medication Sig Dispense Refill ??? amoxicillin-clavulanate (AUGMENTIN) 875-125 mg Oral tablet Take 1 Tab by mouth every 12 hours. 28 Tab 0 ??? gabapentin (NEURONTIN) 600 mg Oral tablet Take 1,200 mg by mouth 3 times daily. ??? buPROPion SR 12 hour (WELLBUTRIN-SR) 150 mg Oral tablet Take 150 mg by mouth 2 times daily. ??? meclizine (ANTIVERT) 12.5 mg Oral tablet Take 25 mg by mouth every 6 hours. ??? amitriptyline (ELAVIL) 10 mg Oral tablet Take 10 mg by mouth daily at bedtime. Takes six tablets every every evening for sleep ??? piroxicam (FELDENE) 20 mg Oral capsule Take 20 mg by mouth daily. ??? HYDROcodone-acetaminophen (NORCO) 7.5-325 mg Oral Tab Take 2 Tabs by mouth every 4 hours as needed. Advised pt to take the following medications on the morning of surgery: Vicodin, Neurontin, Meclazine, Bupropion Advised pt to stop taking the following medications one week prior to surgery: ASA/ NSAIDs, Piroxicam There are no active problems to display for this patient. Past Medical History Diagnosis Date ??? Anxiety ??? Arthritis left jaw ??? Depression ??? 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 Difficult intubation small mouth opening ??? Temporomandibular joint disorders, unspecified ??? Vertigo ??? CAD (coronary artery disease) December 2011 [place] ??? Unspecified adverse effect of anesthesia Wakes during surgery, reports cardiac arrest ??? Obstructive sleep apnea (adult) (pediatric) unable to tolerate Past Surgical History Procedure Date ??? Pr reconstr jaw,full,endo implnt from 2000 to 2008 total of [address] Dylon Fung ??? Pr exc skin benig 0.6-1cm trunk,arm,leg 08/13/2012 CYST LESION MASS EXCISION performed by Kraig Gabriel MD at [facility] OR [facility] ??? Pr exc skin benig 0.6-1cm trunk,arm,leg 09/15/2012 CYST LESION MASS EXCISION performed by Kraig Gabriel MD at [facility] OR [facility] History Substance Use Topics ??? Smoking status: Former Smoker Types: Cigarettes Quit date: 07/09/2012 ??? Smokeless tobacco: Not on file ??? Alcohol Use: No No family history on file. Previous Anesthesia Problems/Concerns:: Patient concerns based on previous anesthesia states she flatlined x 2 in 2007 d/t bleeding intra-op; Has had >40 surgeries History of PONV: No Review of Systems Cardiovascular: negative for CP/chest pressure, syncope/pre-syncope, arrythmias, palpitations,irregular heart rate, shortness of breath, GARCIA, orthopnea, PND, and lower extremities edema.. had heartattack 01/28but the tests were fine, no interventions . Followed by PMD Exercise Tolerance: Able to climb 2 flights of stairs or walk 2 blocks w/o chest pain- walks for 1 hr/day. Respiratory: negative for asthma, COPD. Tobacco: negative. Quit 4 mo ago Snoring: yes; DENNYS: yes; does not use C-pap Neurological: positive for headaches w/ dizziness; Dr. Allen did surgery in 2008 left facial nerves cut , negative for stroke / TIA and seizure Gastrointestinal: negative. Hepatitis: negative. Endocrine: negative for diabetes and thyroid disease Genitourinary:negative. Musculoskeletal: positive for arthralgias, stiff joints and jaw pain, unable to open jaws past 1.5-2 finger breaths; TMJ- titanium joint Hematological: negative for bleeding, clotting disorders, blood thinners. PHYSICAL EXAM BP 132/82 Pulse 97 Ht 5' 4 (1.626 m) Wt 214 lb (97.07 kg) BMI 36.73 kg/m2 SpO2 98% Weight: Weight: 214 lb (97.07 kg) (10/26/12 1105) Height: Ht Readings from Last 1 Encounters: 10/26/12 5' 4 (1.626 m) BMI: Body mass index is 36.73 kg/(m^2). General Appearance: Alert, oriented, no acute distress Airway: normal range of motion; Airway Class: III (soft palate, base of uvula visible); Special Considerations Mouth Opening 1-2 Finger Breadth Dentition: fair Lungs: clear to auscultation bilaterally, normal respiratory effort Heart: regular rate and rhythm, S1, S2 normal, no murmur, click, rub or gallop Neuro: alert, oriented x 3, no defects noted in general exam. Extremities: extremities normal, atraumatic, no cyanosis or edema LABS Lab Results Component Value Date WBC 7.0 07/23/2012 HEMOGLOBIN 13.9 08/09/2012 HEMATOCRIT 41.4 08/09/2012 PLATELETS 224 07/23/2012 MCV 97.0 07/23/2012 Lab Results Component Value Date SODIUM 139 07/23/2012 POTASSIUM 4.1 07/23/2012 CHLORIDE 106 07/23/2012 CO2 23 07/23/2012 CALCIUM 9.1 07/23/2012 BUN 12 07/23/2012 CREATININE 0.75 07/23/2012 GLUCOSE 86 07/23/2012 No results found for this basename: INR, PT, PROTIMEPOC Lab Results Component Value Date POC , URINE Negative 09/15/2012 [id number] normal sinus rhythm, no significant change from previous tracing on 02-16-12 Other Studies/Considerations: Cardiac studies 08/31 Anesthesia record in chart 02/28 Cardiac Stress Negative for ischemia 02/28 Cardiac ECHO Mild MR, TR, normal LVF EF 55-65% Per Previous [facility] record by CB 08-09-12 in chart 11/25 Old anesthesia record Grade 2 view, Glidescope used 07/28 Old anesthesia record LMA #3 used 04/26 Old anesthesia record Grade 4 view, Nasal intubation done Risks/Alternatives discussed. Questions solicited and answered. Yes Postop pain management discussed yes Smoking/Tobacco Counseling: None Recommendations:[place] precautions or Potential difficult intubation REPORT AND NECESSARY FOLLOW-UP History and physical performed in [facility], tests (ECG, blood work) reviewed. Abnormal Results Found: no Further Testing or Evaluation Required: no Final [facility] Center Review: May proceed with procedure/surgery: yes YOVANA Agarwal 11:23 AM 10/26/2012 * Sabrina-OP - Esther Gomez RN - 10/26/2012 11:06 AM CDT Patient instructed to bring their C-PAP machine with them the day of surgery. documented in this encounter Plan of Treatment Not on file documented as of this encounter Procedures Procedure Name Priority Date/Time Associated Diagnosis Comments HEMOGLOBIN AND HEMATOCRIT Routine 10/26/2012 10:49 AM CDT documented in this encounter Results * HEMOGLOBIN AND HEMATOCRIT (10/26/2012 10:49 AM CDT) HEMOGLOBIN 13.1 11.8 - 14.8 g/dL [facility] HEMATOCRIT 40.2 35.5 - 44.0 % [facility] Blood specimen (specimen) 10/26/2012 10:49 AM CDT 10/26/2012 11:55 AM CDT Javier Soriano MD [facility] Organization Address City/State/ZIP Co de Phone Number [id number] [address] [place] [address] documented in this encounter Visit Diagnoses Not on filedocumented in this encounter Care Teams Pump House Technician Relationship Specialty Start Date End Date Kyle Rodríguez MD [address] [place] [address] PCP - General Internal Medicine 09/10/12 06/09/17 documented as of this encounter
--- OUTSIDE RECORDS SUMMARY | 2024-07-16 13:01 | XMS_ITS | Encounter Summary ---
Author Organization [facility] Address [address] [place] [address] Care Team Providers Care Animal Care Provider Name Role Phone Sg Richards MD Primary Care Provider [phone] Reason for Visit * Auth/Cert Specialty Diagnoses / Procedures Referred By Contac t Referred To Contact Multi Specialty Diagnoses cholecystitis [facility] Medical Surgical [address] [place] [address] Referral ID Status Reason Start Date Expiration Date Visits Re quested Visits Authorized [id number] 1 1 Encounter Details Date Type Department Care Team (Late st Contact Info) Description 11/27/2018 1:15 PM CDT - 11/27/2018 3:15 PM CDT Surgery [facility] Operating Room [address] [place] [address] Ignacio Frost MD NO ADDRESS ON FILE CHOLECYSTECTOMY LAPAROSCOPIC POSS OPEN Surgery Details Date/Time Status Location OR Service Patient Class Case Class Case Type Trauma Case? 11/27/2018 1:15 PM Posted [facility] OR MAIN OR 20 General Surgery Inpatient Urgent No Panel 1 Procedure LRB Anes Op Region Wound Class Comments CHOLECYSTECTOMY LAPAROSCOPIC POSS OPEN N/A General A bdomen Clean-I Surgeon Surgeon Role Service Panel Ignacio Frost MD Primary General Surgery 1 documented in this encounter Social History Tobacco [...] Sign Reading Time Taken Comments Blood Pressure 127/72 11/27/2018 3:15 PM CDT Pulse 71 11/27/2018 9:50 AM CDT Temperature 36.9 ??C (98.5 ??F) 11/27/2018 2:59 PM CD T Respiratory Rate 20 11/27/2018 3:15 PM CDT Oxygen Saturation 100% 11/27/2018 3:15 PM CDT Inhaled Oxygen Concentration - - [...] 43 y.o. / female : 1975 CSN: [id number] Today's Date: 11/28/2018 Admitting Physician: Ignacio Frost MD Consults: none Admit date: 11/26/2018 Discharge date: 11/28/2018 Admitting Diagnoses: Active Problems: Acute cholecystitis Discharge Diagnoses: Active Hospital Problems Diagnosis ??? Acute cholecystitis Resolved Hospital Problems No resolved problems to display. Hospital Course: The patient was admitted to [facility] with acute cholecystitis. She underwent uneventful laparoscopic [...] Frost MD, 11/28/2018 8:05 AM Pager # [phone] I certify that I have spent >30 minutes within patient care. If you have any questions and are not able to get a hold of myself, please contact the trauma/general surgeon tool honing machine set up operator. documented in this encounter Discharge Instructions * Discharge Instructions* Ignacio Frost MD - 11/27/2018 2:40 PM CDT [facility] GENERAL/TRAUMA SURGERY INSTRUCTIONS: This is to certify [...] month after surgery. You should take gentle enhc-dgx-xxseptc stool softeners twice a day until you get back into your normal diet and activity. You may need to add uldp-zdc-qgbotqg milk of magnesia, magnesium citrate, dulcolax suppository, [...] have a primary care provider go to: [email or web address] and you will be instructed on how to find a primary care provider near you. Follow up with Dr. Frost in approximately 2 weeks - call for appointment. Please go to [email or web address] and establish an account and send me [...] 11/27/2018 NAME: Kayla Avila : 1975 CSN: [id number] [facility] Surgery H&P/Consult ASSESSMENT/PLAN: 1) Acute [...] not last this long. She went to [facility] where diagnostic workup included normal WBC, mildly elevated LFTS (ALT 105, AST 112), Tbili (0.9) and CT scan showing distended GB with small stones and trace pericholecystic fluidconcerning for cholecystitis. Patient transferred to [facility] given concerns for airway management given multiple [...] pain. In addition, patient reports being on mcc augmentin presumably as prophylaxis as per ID [...] to left jaw ??? Heart attack 2010 [place] ??? 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 Obstructive sleep [...] by Dylon Fung MD at [facility] OR [facility] ??? HX CRANIOFACIAL RECONSTRUCTION N/A 08/11/2018 ORALMAXILLOFACIAL DEVICE REMOVAL LT. MANDIBLE HARDWARE performed by Dylon Fung MD at [facility] OR [facility] ??? HX TUBAL LIGATION 04/10/15 ??? HX VAGINAL DELIVERY 09/19/1993 ??? HX WISDOM TEETH EXTRACTION TEEN ??? GA ARTHROPLASTY TMJ+PROSTHESIS N/A 11/03/2018 TEMPOROMANDIBULAR JOINT PROSTHETIC PLACEMENT performed by Dylon Fung MD at [facility] OR [facility] ??? GA EXC SKIN BENIG 0.6-1CM TRUNK,ARM,LEG 08/13/2012 CYST LESION MASS EXCISION performed by Kraig Gabriel MD at [facility] OR [facility] ??? GA EXC SKIN BENIG 0.6-1CM TRUNK,ARM,LEG 09/15/2012 CYST LESION MASS EXCISION performed by Kraig Gabriel MD at [facility] OR [facility] ??? GA EXC SKIN BENIG 0.6-1CM TRUNK,ARM,LEG Left 06/17/2018 CYST LESION MASS EXCISION performed by Kraig Gabriel MD at [facility] OR [facility] ??? GA MYRINGOPLASTY Left 06/17/2018 MYRINGOPLASTY performed by Kraig Gabriel MD at [facility] OR [facility] ??? GA NERVOUS SYSTEM SURGERY UNLISTED N/A 11/03/2018 STEROID INJECTION performed by Dylon Fung MD at [facility] OR [facility] ??? GA PREP FACE/ORAL PROST UNLISTED 06/17/2018 TEMPOROMANDIBULAR JOINT PROSTHETIC REMOVAL performed by Dylon Fung MD at [facility] OR [facility] ??? GA RECONSTR JAW,FULL,ENDO IMPLNT from 2000 to 2008 total of [address] Dylon Fung ??? GA REMOVAL SUPERFICIAL IMPLANT 11/03/2012 HARDWARE REMOVAL performed by Dylon Fung MD at [facility] OR [facility] ??? GA REMV EXT CANAL SOFT TISSUE LESN 11/03/2012 AURICULAR CYST LESION MASS EXCISION performed by Dylon Fung MD at [facility] OR [facility] No family history on file. Social History [...] file Gets together: Not on file Attends jain service: Not on file Active member of [...] reviewed the labs, xrays, and evaluated the reporting consultant's notes and agree with the above assessment. I have spent no less than 45 minutes involved in the care and evaluation of the patient. Ignacio Frost MD, 11/27/2018 11:56 AM Pager # [phone] *If unable to reach me, please call the substation operator automatic and ask for the On-Call Trauma Surgeon* documented in this encounter OR Notes * Sabrina-OP - Arin Sy RN - 11/27/2018 5:01 PM CDT Potential for pain related to surgical/procedural intervention Interventions: Assess level of pain/comfort utilizing verbal/nonverbal pain scales; assess culturalor jain indicators attached to pain; administer pain medications as prescribed; utilize non-pharmacologic pain control and comfort measures Expected Outcome: Patient demonstrates and reports adequate pain control Outcome Met: Resting quietly with eyes closed after pain rx. * Sabrnia-OP - Arin Sy RN - 11/27/2018 3:35 PM CDT Benadryl given at 1522 per PRN order for nausea. Does not complain of nausea, but has belched numerous times. Is also pale. * Operative Report - Ignacio Frost MD - 11/27/2018 2:38 PM CDT Images from the original note were not included. NAME: Kayla Avila : 1975 CSN: [id number] Laparoscopic Cholecystectomy Procedure Note Indications: This patient presents with a symptomatic gallbladder disease. Pre-operative Diagnosis: Cholelithiasis with cholecystitis Post-operative Diagnosis: Cholelithiasis with cholecystitis Date of Procedure: 11/27/2018 Surgeon: Ignacio Frost MD Anesthesia: General endotracheal anesthesia ASA Class: [...] Frost MD, 11/27/2018 2:39 PM Pager # [phone] documented in this encounter Miscellaneous Notes * [...] of pain after procedure. meds given per sep. Pt ambulated to the bathroom with 's [...] done, pt & spouse verbalize understanding * Ken Marie - Nettie Nathan RN - 11/27/2018 6:20 [...] CASE REPORT Surgical Pathology Report ? Case: [id number] ? Authorizing Provider: ??Ignacio Frost MD ? Collected: ? 11/27/2018 02:41 PM ? Ordering Location: ? [facility] ?Received: ?11/29/2018 07:25 AM ? Operating Room ? Pathologist: ? Kirstin Chen MD ? Specimen: ?Gallbladder ? 12/01/2018 8:30 AM [facility] [email or web address] [facility] FINAL DIAGNOSIS Gallbladder, cholecystectomy: - Cholelithiasis. - Moderate chronic inflammation. - Cholesterolosis. 12/01/2018 8:30 AM [facility] [employer] [facility] IMEN DESCRIPTION Gallbladder. 12/01/2018 8:30 AM [facility] [employer] OPERATIVE PROCEDURE Cholecystectomy laparoscopic, possible open. 12/01/2018 8:30 AM [facility] [email or web address] [facility] CLINICAL DIAGNOSIS Not provided. 12/01/2018 8:30 AM [facility] [email or web address] [facility] GROSS DESCRIPTION Received in a single container [...] lesions are not identified within the gallbladder. Iron Miner sections, to include the cystic duct margin, are submitted labeled A1. ALG/pjs 12/01/2018 8:[address] [facility] MICROSCOPIC DESCRIPTION The slide is labeled [id number] and Kayla Avila. Microscopic examination substantiates the above diagnosis. 12/01/2018 8:[address] [facility] COMMENT Special stain and/or immunohistochemical results are interpreted with controls that demonstrate appropriate staining reactions. Note on use of immunocytochemistry reagents: This test was developed and its performance characteristic determined by [facility], Department of Laboratory Medicine. It has not [...] WF, WB and WH are performed by [address], [address]. All other case types are performed by [address], [address]. 12/01/2018 8:[address] [facility] Tissue ENTIRE GALLBLADDER / Unknown Collection / Unknown 11/27/2018 2:41 PM CDT 11/29/2018 7:25 AM CDT Ignacio Frost MD PATHOLOGY/CYTOLOGY O RDERABLES [facility] CLIA# [id number] [address] [place] [address] [place] [address] * VERIFICATION BLOOD GROUP (11/27/2018 8:19 AM CDT) ABO GROUP O 11/27/2018 11:21 AM CDT [facility] RH (D) TYPE Negative 11/27/2018 11:21 AM CDT [facility] Blood Collection / Unknown 11/27/2018 8:19 AM CDT 11/27/2018 8:23 AM CDT Meme Guan MD BLOOD BANK CALEB RODRIGES [facility] [employer] SERVICES -- [facility]# [id number] [address] [place], [place] [address] * HCG QUALITATIVE, URINE (11/27/2018 7:09 AM CDT) HCG QUAL URINE Negative Negative 11/27/2018 7:33 AM CDT [facility] - [facility] COLOR UA Yellow Pale to Dark Yellow 11/27/2018 7:33 AM CDT [facility] CLARITY UA Clear Clear 11/27/2018 7:33 AM CDT [facility] - [facility] Urine URINE SPECIMEN OBTAINED BY CLEAN CATCH PROCEDURE / Unknown Collection / Unknown 11/27/2018 7:09 AM CDT 11/27/2018 7:17 AM CDT Ignacio Frost MD URINE ORDERABLES Performing Organization Address [facility] Co de Phone Number [facility] [employer] SERVICES - [facility]# [id number] [address] [place] [address] * TYPE AND SCREEN (11/27/2018 7:05 AM CDT) ABO GROUP O 11/27/2018 8:08 AM CDT [facility] RH (D) TYPE Negative 11/27/2018 8:08 AM CDT [employer] LABORATORY SERVICES -- [facility] ANTIBODY SCREEN Negative 11/27/2018 8:08 AM CDT [facility] LABORATORY SERVICES -- [facility] Blood Venipuncture / Unknown 11/27/2018 7:05 AM CDT 11/27/2018 7:12 AM CDT Ignacio Frost MD BLOOD BANK ORDERABLE S [facility] -- [facility] CLIA# [id number] [address] [place] [address] * (ABNORMAL) COMPREHENSIVE METABOLIC PANEL (11/27/2018 7:05 AM CDT) SODIUM 138 136 - 145 mmol/L 11/27/2018 7:53 AM [employer] LABORATORY SERVICES - [facility] POTASSIUM 3.5 3.5 - 5.0 mmol/L 11/27/2018 7:53 AM T [facility] [employer] [facility] LAB[facility]ATORY SERVICES - [facility] CHLORIDE 103 98 - 107 mmol/L 11/27/2018 7:53 AM T [employer] [facility]ORY SERVICES - [facility] CO2 24 22 - 29 mmol/L 11/27/2018 7:53 AM T [facility] CALCIUM 8.7 8.6 - 10.2 mg/dL 11/27/2018 7:53 AM [facility] [employer] - [facility] BUN 3(L) 6 - 20 mg/dL 11/27/2018 7:53 AM T [facility] CREATININE 0.55 0.51 - 0.95 mg/dL 11/27/2018 7:53 AM T [facility] - [facility] GLUCOSE 90 74 - 99 mg/dL 11/27/2018 7:53 AM T [facility] - [facility] TOTAL PROTEIN 6.2(L) 6.7 - 8.6 g/dL 11/27/2018 7:53 AM T [facility] - [facility] ALBUMIN 3.4(L) 3.5 - 5.2 g/dL 11/27/2018 7:53 AM T [facility] LAB[facility]ATORY SERVICES - [facility] BILIRUBIN TOTAL 0.6 0.3 - 1.2 mg/dL 11/27/2018 7:53 AM T [employer] - [facility] ALKALINE PHOSPHATASE 135(H) 35 - 104 U/L 11/27/2018 7:53 AM T [facility] AST 56(H) <33 U/L 11/27/2018 7:53 AM T [facility] [facility]ATORY SERVICES - [facility] ALT 80(H) <34 U/L 11/27/2018 7:53 AM [facility] - [facility] GFR >60 >=60 mL/min/1.7 3 sq meter 11/27/2018 7:53 AM [facility] Comment: eGFR has not been validated for [...] mL/min/1.7 3 sq meter 11/27/2018 7:53 AM [facility] ANION GAP 11 8 - 16 mmol/L 11/27/2018 7:53 AM [facility] Blood Venipuncture / Unknown 11/27/2018 7:05 AM CDT 11/27/2018 7:11 AM T Narrative [facility] - 11/27/2018 7:53 AM CDT Samples containing indocyanine green cause interferences on Total and/or Direct Bilirubin and must not be measured. Ignacio Frost MD CHEMISTRY ORDERABLES [facility] [employer] [facility]# [id number] [address] [facility] [place] [address] * (ABNORMAL) CBC WITH DIFFERENTIAL (11/27/2018 7:05 AM CDT) WBC 4.9 4.0 - 9.8 K/uL 11/27/2018 7:24 AM [facility] RBC 3.54(L) 3.90 - 4.90 M/uL 11/27/2018 7:24 AM [facility] HEMOGLOBIN 11.8 11.8 - 14.8 g/dL 11/27/2018 7:24 AM [facility] HEMATOCRIT 34.6(L) 35.5 - 44.0 % 11/27/2018 7:24 AM CDT [facility] [facility] SERVICES - [facility] MCV 97.7 82.0 - 99.0 fL 11/27/2018 7:24 AM CDT [facility] SERVICES - [facility] MCH 33.3(H) 27.2 - 32.6 pg 11/27/2018 7:24 AM CDT [facility] [employer] [facility] LABORATORY SERVICES - [facility] MCHC 34.1 31.5 - 35.5 g/dL 11/27/2018 7:24 AM CDT [facility] [employer] [facility]ATORY SERVICES - [facility] RDW 13.1 11.5 - 14.5 % 11/27/2018 7:24 AM CDT [facility] [employer] [facility]ORY SERVICES - [facility] RDW-STDEV 47.4 37.1 - 48.7 fL 11/27/2018 7:24 AM CDT [facility] [facility]ATORY SERVICES - [facility] PLATELETS 201 140 - 350 K/uL 11/27/2018 7:24 AM CDT [facility] [employer] [facility]ORY SERVICES - [facility] MPV 11.2 9.3 - 12.4 fL 11/27/2018 7:24 AM CDT [facility] - [facility] NEUTROPHILS 58 % 11/27/2018 7:24 AM CDT [facility] [employer] [facility] SERVICES - [facility] LYMPHOCYTES 30 % 11/27/2018 7:24 AM CDT [facility] LABORATORY SERVICES - . [facility] MONOCYTES 10 % 11/27/2018 7:24 AM CDT [facility] [facility] LABORATORY SERVICES - . [facility] EOSINOPHILS 2 % 11/27/2018 7:24 AM CDT [facility] [employer] [facility]ORY SERVICES - [facility] BASOPHILS 1 % 11/27/2018 7:24 AM CDT [facility] [employer] [facility] LABORATORY SERVICES - . [facility] IMMATURE GRANULOCYTES 0 % 11/27/2018 7:24 AM CDT [facility] [employer] [facility] LABORATORY SERVICES - . [facility] NEUTROPHIL ABSOLUTE 2.83 1.90 - 7.00 K/uL 11/27/2018 7:24 AM CDT [facility] LABORAT[facility] SERVICES - . [facility] LYMPHOCYTE ABSOLUTE 1.45 0.70 - 4.50 K/uL 11/27/2018 7:24 AM CDT [facility] [employer] [facility] LABORATORY SERVICES - . [facility] MONOCYTE ABSOLUTE 0.50 0.10 - 1.30 K/uL 11/27/2018 7:24 AM CDT [facility] [employer] [facility] LABORATORY SERVICES - . [facility] EOSINOPHIL ABSOLUTE 0.09 0.00 - 0.70 K/uL 11/27/2018 7:24 AM CDT [facility] LABORATORY SERVICES - [facility] BASOPHILS ABSOLUTE 0.03 0.00 - 0.20 K/uL 11/27/2018 7:24 AM CDT [facility] LAB[facility]ORY SERVICES - . [facility] IMMATURE GRANULOCYTES ABSOLUTE 0.01 0.00 - 0.03 K/uL 11/27/2018 7:24 AM CDT [facility]ORY SERVICES - [facility] Blood Venipuncture / Unknown 11/27/2018 7:05 AM CDT 11/27/2018 7:11 AM CDT Ignacio Frost MD HEMATOLOGY ORDERABLE S [id number] [address] [address] * PHOSPHORUS (11/27/2018 7:05 AM CDT) PHOSPHORUS 3.1 2.5 - 4.5 mg/dL 11/27/2018 7:53 AM CDT [facility] LABORATORY [facility] - [facility] Blood Venipuncture / Unknown 11/27/2018 7:05 AM CDT 11/27/2018 7:11 AM CDT Ignacio Frost MD CHEMISTRY ORDERABLES [facility] [id number] [address] [place] [address] * MAGNESIUM LEVEL (11/27/2018 7:05 AM CDT) MAGNESIUM 1.7 1.6 - 2.6 mg/dL 11/27/2018 7:53 AM CDT [facility] Blood Venipuncture / Unknown 11/27/2018 7:05 AM CDT 11/27/2018 7:11 AM CDT Ignacio Frost MD CHEMISTRY ORDERABLES [facility] [employer] [facility] CLIA# [id number] [address] [place] [address] * LIPASE (11/26/2018 11:13 PM CDT) LIPASE 18 13 - 60 U/L 11/27/2018 2:10 AM CDT [facility] LABORATORY SERVICES [facility] Blood Venipuncture / Unknown 11/26/2018 11:13 PM CDT 11/26/2018 11:17 PM CDT Ignacio Frost MD CHEMISTRY ORDERABLES Performing Organization Address City/[facility]/ZIP Co de Phone Number [facility] CLIA# [id number] [address] [place] [address] * (ABNORMAL) COMPREHENSIVE METABOLIC PANEL (11/26/2018 11:13 PM CDT) SODIUM 139 136 - 145 mmol/L 11/26/2018 11:45 PM [employer]T [employer] - [facility] POTASSIUM 3.4(L) 3.5 - 5.0 mmol/L 11/26/2018 11:45 PM CDT [facility] SERVICES - . [facility] CHLORIDE 105 98 - 107 mmol/L 11/26/2018 11:45 PM CDT [facility] - [facility] CO2 24 22 - 29 mmol/L 11/26/2018 11:45 PM CDT [facility] LABORATORY SERVICES - [facility] CALCIUM 8.9 8.6 - 10.2 mg/dL 11/26/2018 11:45 PM CDT [facility] - [facility] BUN 4(L) 6 - 20 mg/dL 11/26/2018 11:45 PM CDT [facility] - [facility] CREATININE 0.56 0.51 - 0.95 mg/dL 11/26/2018 11:45 PM CDT [facility] [employer] [facility]ORY SERVICES - [facility] GLUCOSE 94 74 - 99 mg/dL 11/26/2018 11:45 PM CDT [facility] LABORATORY SERVICES - . [facility] TOTAL PROTEIN 6.2(L) 6.7 - 8.6 g/dL 11/26/2018 11:45 PM [facility] ALBUMIN 3.4(L) 3.5 - 5.2 g/dL 11/26/2018 11:45 PM [facility] BILIRUBIN TOTAL 0.5 0.3 - 1.2 mg/dL 11/26/2018 11:45 PM [facility] ALKALINE PHOSPHATASE 136(H) 35 - 104 U/L 11/26/2018 11:45 PM [facility] AST 53(H) <33 U/L 11/26/2018 11:45 PM [facility] ALT 80(H) <34 U/L 11/26/2018 11:45 PM [facility] GFR >60 >=60 mL/min/1.7 3 sq meter 11/26/2018 11:45 PM [facility] Comment: eGFR has not been validated for [...] mL/min/1.7 3 sq meter 11/26/2018 11:45 PM [facility] ANION GAP 10 8 - 16 mmol/L 11/26/2018 11:45 PM [facility] Blood Venipuncture / Unknown 11/26/2018 11:13 PM CDT 11/26/2018 11:17 PM T [facility] - 11/26/2018 11:45 PM CDT Samples containing indocyanine green cause interferences on Total and/or Direct Bilirubin and must not be measured. Ignacio Frost MD CHEMISTRY ORDERABLES [employer] LABORATORY SERVICES - [facility] CLIA# [id number] [address] [place] [address] * (ABNORMAL) CBC WITH DIFFERENTIAL (11/26/2018 11:13 PM CDT) WBC 5.5 4.0 - 9.8 K/uL 11/26/2018 11:23 PM CDT [facility] - [facility] RBC 3.42(L) 3.90 - 4.90 M/uL 11/26/2018 11:23 PM CDT [facility] - [facility] HEMOGLOBIN 11.2(L) 11.8 - 14.8 g/dL 11/26/2018 11:23 PM CDT [facility] - [facility] HEMATOCRIT 33.8(L) 35.5 - 44.0 % 11/26/2018 11:23 PM CDT [facility] [facility]ATORY SERVICES - [facility] MCV 98.8 82.0 - 99.0 fL 11/26/2018 11:23 PM CDT [facility] - [facility] MCH 32.7(H) 27.2 - 32.6 pg 11/26/2018 11:23 PM CDT [facility] - [facility] MCHC 33.1 31.5 - 35.5 g/dL 11/26/2018 11:23 PM CDT [facility] [employer] [facility] SERVICES - [facility] RDW 13.0 11.5 - 14.5 % 11/26/2018 11:23 PM CDT [facility] [employer] [facility] SERVICES - [facility] RDW-STDEV 46.9 37.1 - 48.7 fL 11/26/2018 11:23 PM CDT [facility] - [facility] PLATELETS 187 140 - 350 K/uL 11/26/2018 11:23 PM CDT [facility] [facility] SERVICES - [facility] MPV 11.2 9.3 - 12.4 fL 11/26/2018 11:23 PM CDT [facility] [employer] [facility] SERVICES - . [facility] NEUTROPHILS 60 % 11/26/2018 11:23 PM CDT [facility] [employer] [facility] SERVICES - [facility] LYMPHOCYTES 29 % 11/26/2018 11:23 PM CDT [facility] [employer] [facility]ORY SERVICES - [facility] MONOCYTES 10 % 11/26/2018 11:23 PM CDT [facility] SERVICES - [facility] EOSINOPHILS 2 % 11/26/2018 11:23 PM CDT [facility] SERVICES - [facility] BASOPHILS 0 % 11/26/2018 11:23 PM CDT [facility] SERVICES - [facility] IMMATURE GRANULOCYTES 0 % 11/26/2018 11:23 PM CDT [facility] SERVICES - [facility] NEUTROPHIL ABSOLUTE 3.27 1.90 - 7.00 K/uL 11/26/2018 11:23 PM CDT [facility] SERVICES - [facility] LYMPHOCYTE ABSOLUTE 1.56 0.70 - 4.50 K/uL 11/26/2018 11:23 PM CDT [facility] SERVICES - [facility] MONOCYTE ABSOLUTE 0.52 0.10 - 1.30 K/uL 11/26/2018 11:23 PM CDT [facility] SERVICES - [facility] EOSINOPHIL ABSOLUTE 0.09 0.00 - 0.70 K/uL 11/26/2018 11:23 PM CDT [facility] BASOPHILS ABSOLUTE 0.02 0.00 - 0.20 K/uL 11/26/2018 11:23 PM CDT [facility] IMMATURE GRANULOCYTES ABSOLUTE 0.01 0.00 - 0.03 K/uL 11/26/2018 11:23 PM CDT [facility] Blood Venipuncture / Unknown 11/26/2018 11:13 PM CDT 11/26/2018 11:17 PM CDT Ignacio Frost MD HEMATOLOGY ORDERABLE S [facility]# [id number] [address] [place] [id number] documented in this encounter Visit Diagnoses Not on filedocumented in this encounter Administered Medications Inactive Administered Medications - up to 3 most recent administrations Medication Order MAR Action Action Date Dose Rate Site bupivacaine-EPINEPHrine (PF) (SENSORCAINE MPF WITH EPI) 0.5 %-1:200,000 injection INTRA-PROCEDURE PRN, Starting on 11/27/18 at 1439, Until 11/27/18 at 1457, Routine, Intra-op Given 11/27/2018 2:39 PM CDT 13 mL Operative Site gabapentin (NEURONTIN) capsule 1,200 mg 1,200 mg, Oral, THREE TIMES DAILY, First dose on Thu11/27/18 at 0900, Until Discontinued, Routine Given 11/28/2018 8:50 AM CDT 1,200 mg Given 11/27/2018 6:03 PM CDT 1,200 mg Given 11/27/2018 9:00 AM CDT 1,200 mg HYDROcodone-acetaminophen (NORCO) 10-325 mg per tablet 1 Tablet 1 Tablet, Oral, EVERY 4 HOURS PRN, Starting on Thu11/27/18 at 1556, Until 11/28/18 at 1441, Pain (See admin instructions), Routine HYDROcodone-acetaminophen (NORCO) 5-325 mg per tablet 1 Tablet 1 Tablet, Oral, EVERY 4 HOURS PRN, Starting on Thu11/27/18 at 1556, Until 11/28/18 at 1441, Pain [...] PRN, Starting on Thu11/26/18 at 2303, Until 11/28/18 at 1441, Pain (See admin instructions), Routine Given 11/28/2018 9:07 AM CDT 2 mg Given 11/28/2018 1:03 AM CDT 2 mg Given 11/27/2018 8:40 PM CDT 2 mg naloxone (NARCAN) 0.4 mg/mL injection 0.1 mg 0.1 mg, IV, SEE ADMIN INSTRUCTIONS, Starting on Thu11/26/18 at 2303, Until 11/28/18 at 1441, Routine ondansetron (ZOFRAN) 4 mg/2 mL injection 4 mg 4 mg, IV, EVERY 6 HOURS PRN, Starting on Thu11/26/18 at 2303, Until 11/28/18 at 1441, Nausea/Emesis, Routine Given 11/27/2018 8:40 [...] 8:45 PM CDT 3.375 Grams 100 mL/hr sodium chloride 0.9 % irrigation solution INTRA-PROCEDURE PRN, Starting on 11/27/18 at 1440, Until 11/27/18 at 1457, Routine, Intra-op Given 11/27/2018 2:40 PM CDT 700 mL Opera tive Site documented in this encounter Active and Recently Administered Medications Times are shown in CDT. Scheduled Medication Order 11/26/2018 11/27/2018 11/28/2018 gabapentin (NEURONTIN) capsule 1,200 mg 1,200 mg, Oral, THREE TIMES DAILY, First dose on 11/27/18 at 0900, Until Discontinued, Routine 0900 (Given [...] at 2303, Until Thu11/28/18 at 1441, Routine piperacillin-tazobactam (ZOSYN) 3.375 gram [...] Provider: KYLE Ayala)0925 (Stopped - Provider: KYLE Ayala) traZODone (DESYREL) tablet 100 mg 100 mg, [...] Routine, PACU 1520 (Given - Provider: Arin Sy RN) HYDROcodone-acetamino phen (NORCO) 10-325 mg per tablet [...] PRN, Starting on Thu11/26/18 at 2303, Until 11/28/18 at 1441, Nausea/Emesis, [...] Routine documented in this encounter Care Teams Animal Care Provider Relationship Specialty Start Date End Date Sg Richards MD [address] [place] [address] PCP - General Internal Medicine 06/10/17 08/13/21 documented as of this encounter
--- OUTSIDE RECORDS SUMMARY | 2024-07-16 13:01 | XMS_ITS | Encounter Summary ---
Author Organization [facility] Address [address] [place] [address] Care Team Providers Care Mobile Developer Name Role Phone Kyle Rodríguez MD Primary Care Provider [phone] Encounter Details Date Type Department Care Team (Latest Contact Info) Description 11/03/2012 10:21 AM CDT - 11/03/2012 8:23 PM CDT Hospital Encounter [facility] [address] [place] [id number] Dylon Fung MD [address] [address] Discharge Disposition: Home or Self [...] Sign Reading Time Taken Comments Blood Pressure 104/53 11/03/2012 8:08 PM CDT Pulse 84 11/03/2012 8:08 PM CDT Temperature 37.7 ??C (99.8 ??F) 11/03/2012 8:08 PM CD T Respiratory Rate 18 11/03/2012 8:08 PM CDT Oxygen Saturation 97% 11/03/2012 8:08 PM CDT Inhaled Oxygen Concentration - - Weight 97.5 [...] wound immersion. FOLLOW-UP Call the office at [phone] to make an appointment for 7 days after surgery. Once you are home, if you develop any of the following symptoms, call your physician. Difficulty in breathing, persistent nausea or vomiting, profuse bleeding at incision site, pain that is unusual, temperature greater than 101 degrees. If you cannot contact your physician, call or come to the Emergency Room at [facility] ([phone]) or the nearest Emergency Room. In an [...] as of this encounter H&P Notes * Scanning, Stl - 11/12/2012 4:53 AM CDT Electronically signed by Noemi [facility] Stl Data Coder Operator Incoming at 11/12/2012 4:53 AM CDT * Haroon Dumont [...] 11/10/2012 3:09 PM CDT Electronically signed by Noemi [facility] Stl Data Coder Operator Incoming at 11/10/2012 3:09 PM CDT documented in this encounter OR Notes * OR Anesthesia - Shelly Lombardi - 11/10/2012 3:09 PM CDT * Operative Report - Haroon Dumont DMD - 11/04/2012 1:26 AM CDT [place], [place] [address] Operative Report CSN: [id number] DATE OF SERVICE: 11/03/2012 SURGEON Dylon Fung DDS, MD PREOPERATIVE DIAGNOSIS Left auricular fistula. POSTOPERATIVE DIAGNOSIS Left auricular fistula. OPERATION NAME 1. Left auricular fistula excision. 2. Hardware removal. 3. Cadaver bone, Dermagraft. ANESTHESIA General. OPTO MECHANICAL ENGINEER Haroon Dumont DMD ESTIMATED BLOOD LOSS 20 [...] brought to recovery room in stable condition. JM:MEDAmi DID: [id number] Dictated by: Haroon Dumont DMD * Sabrina-OP - Madeline Almanzar RN - 11/03/2012 6:39 PM CDT Prescriptions called into [facility] pharmacy . Verified with pharmacist. * Sabrina-OP [...] and evaluated: Modified Archie Score: Score: 10 (11/03/12 144) COMMENTS: No apparent Anesthesia related complications RESPIRATORY FUNCTION: Respiration: able to breath and cough freely (11/03/121444) [2=able to breathe and cough freely, 1=dyspnea, limited breathing or tachypnea, 0=apnea or mechanicventilator] O2 Saturation: able to maintain O2 saturation greater than 92% on room air (11/03/12 144) [2=able to maintain O2 saturation greater than 92% on room air, 1=needs O2 inhalation to maintain O2 saturation greater than 90%, 0=O2 saturation less than 90% even with O2 supplement] Resp: 12 (11/03/12 154)SpO2: 98 % (11/03/12 154) CARDIOVASCULAR FUNCTION: Heart Rate (Monitored): 77 bpm (11/03/12 154) BP: 112/68 mmHg (11/03/12 154) Circulation: BP within 20% of preanesthetic level (11/03/12 144) [2=BP within 20% of preanesthetic level, 1=BP within 20-49% of preanesthetic level, 0=BP within 50%of preanesthetic level] MENTAL STATUS, NEURO, ACTIVITY: Consciousness: fully awake (11/03/12 144) [2=fully awake, 1=arousable on calling, 0=not responding] Activity: able to move 4 extremities voluntarily or on command (11/03/12 144) [2=able to move 4 extremities voluntarily or [...] Verbal order received from Dr. Dumont for Speed 2 tablets PO. * Sabrina-OP - Lexi [...] Gabriel MD - 11/03/2012 2:26 PM CDT [place], [place] [address] Operative Report CSN: [id number] DATE OF SERVICE: 11/03/2012 SURGEON Lucía Gabriel [...] epinephrine. Lesion was excised with a streak Webster blade under the operative microscope and approximately [...] will dictate the op note. SHH:MEDQ DID: [id number] Dictated by: Lucía Gabriel MD * Sabrina-OP - Heather Bashir RN - 11/03/2012 1:01 PM CDT 2% lidocaine with epinephrene 1 : 100,000 4 mls used for local injection at operative site. * OR Anesthesia - Katiuska Lin MD - 11/03/2012 12:09 PM CDT Pre-Anesthesia Evaluation - Long Form 11/03/2012 12:09 PM Name: Amita Avila Age: 37 y.o. Sex: female CSN: [id number] Procedure: Procedure(s): ORAL CYST LESION MASS EXCISION [...] ??? CAD (coronary artery disease) December 2011 [place] ??? Unspecified adverse effect of anesthesia Wakes during surgery, reports cardiac arrest ??? Obstructive sleep apnea (adult) (pediatric) unable to tolerate Past Surgical History Procedure Date ??? Pr reconstr jaw,full,endo implnt from 2000 to 2008 total of [address] Dylon Fung ??? Pr exc skin benig 0.6-1cm trunk,arm,leg 08/13/2012 CYST LESION MASS EXCISION performed by Lucía Gabriel MD at [facility] OR [facility] ??? Pr exc skin benig 0.6-1cm trunk,arm,leg 09/15/2012 CYST LESION MASS EXCISION performed by Lucía Gabriel MD at [facility] OR [facility] History Substance Use Topics ??? Smoking status: Former Smoker Types: Cigarettes Quit date: 07/09/2012 ??? Smokeless tobacco: Not on file ??? Alcohol Use: No No family history on file. Previous Anesthesia Problems/Concerns: No anesthesia problems/complications History of PONV No Review of Systems Cardiovascular: h/o NE, no sequela. Respiratory: negative Gastroenterology: negative DENN[place], [...] / female : 1975 Date: 11/03/2012 CSN: [id number] Preoperative Diagnosis: Left auricular fistula Postoperative Diagnosis: Same Procedure Performed: Left auricle fistual excision Hardware removal Cadaver bone/dermal graft Surgeon: Dylon Fung MD Wire Welder: Haroon Dumont DMD Surgical Staff: Technical Support Analyst Scrub Flarer Anesthesia: General Estimated Blood Loss: 20cc Fluids: 1L Complications: None Specimen: Left auricle lesion Disposition: Stable to PACU Implants: * No implants in log * documented in this encounter Miscellaneous Notes * Scanned Form - Scanning, Stl - 11/20/2012 10:39 AM CDT Electronically signed by [facility], [facility] Stl Data Coder Operator Incoming at 11/20/2012 10:39 AM CDT * Scanned Form - Scanning, St - 11/10/2012 3:09 PM CDT Electronically signed by Interface, [facility] Stl Data Coder Operator Incoming at 11/10/2012 3:09 PM CDT * Scanned Form - Scanning, St - 11/10/2012 3:09 PM CDT Electronically signed by [facility], [facility] Stl Data Coder Operator Incoming at 11/10/2012 3:09 PM CDT * Scanned Form - Scanning, St - 11/10/2012 3:09 PM CDT Electronically signed by [facility], [facility] Stl Data Coder Operator Incoming at 11/10/2012 3:09 PM CDT * Scanned Form - Scanning, St - 11/10/2012 3:09 PM CDT Electronically signed by [facility], [facility] Stl Data Coder Operator Incoming at 11/10/2012 3:09 PM CDT * Patient Instructions - Scanning, [facility] - 11/10/2012 3:09 PM CDT Electronically signed by [facility], [facility] Stl Data Coder Operator Incoming at 11/10/2012 3:09 PM CDT * Care Plan - Madeline Almanzar RN - 11/03/2012 5:08 PM CDT Potential for pain related to surgical/procedural intervention Interventions: Assess level of pain/comfort utilizing verbal/nonverbal pain scales; assess culturalor pentecostalism indicators attached to pain; administer pain medications [...] pain/comfort utilizing verbal/nonverbal pain scales; assess culturalor pentecostalism indicators attached to pain; administer pain medications [...] Notes WORK COMP, APPROVE BY HERNESTO, CPT: 11244,88560 HARDWARE REMOVAL 11/03/2012 11:3 0 AM CDT LEFT AURICLE FASTULA Case Notes WORK COMP, APPROVE BY HERNESTO, CPT: 53052,58071 RETIRED AURICULAR CYST LESION MASS EXCISION 11/03/2012 11:30 AM CDT LEFT AURICLE FASTULA Case Notes WORK COMP, APPROVE BY HERNESTO, CPT: 14044,48559 CYST LESION MASS EXCISION 11/03/2012 11:30 AM CDT LEFT AURICLE FASTULA Case Notes WORK COMP, APPROVE BY HERNESTO, CPT: 32088,62457 POC , URINE Routine 11/03/2012 10:53 AM CDT documented in this encounter Results * PATHOLOGY (11/03/2012 3:08 PM CDT) SURGICAL PATHOLOGY ?[facility] ?[address] ? [place], [place] ??[address] ? Patient: ??CALVIN, AMITA F ? : ??1975 ? Procedure Date: ??11/03/2012 ? Accession Date: ??11/03/2012 ? Case No: ??[id number] ? Ordering Dr: ??LUCÍA GABRIEL ? Case type SW is performed by [facility], [address], ? [place], [place] ??[address]; all other case types are performed by [facility] ? [facility], [address] [facility], [place] ??[address] ?SURGICAL PATHOLOGY & NON-GYNECOLOGIC CYTOPATHOLOGY REPORT ? [...] received in a single container labeled Amita Ellis. ? Calvin, left ear canal lesion and consists of [...] is submitted in ? cassette A1. ? [facility] 11.03.2012 06:24 pm ? Microscopic: ? The slides are labeled Amita Avila and [id number]. ? The tissue consists predominantly of pieces [...] FOR EVA VALDEZ M.D.- 11/07/12 02:43 pm [facility] Specimen of unknown material (specimen) 11/03/2012 3:08 PM CDT Lucía Gabriel MD PATHOLOGY/CYTOLOGY O RDERABLES Performing Organization Address [facility] Co de Phone Number [facility] CLIA# [id number] [address] [place] [address] * POC , URINE (11/03/2012 10:53 AM CDT) , URINE POC Negative Negative [facility] CLIA LICENSE [id number] [facility] 11/03/2012 10:5 3 AM CDT 11/03/2012 10:53 AM CDT Comment:URINE Dylon Fung MD POINT OF CARE TESTIN G Performing Organization Address [facility]/ZIP Co de Phone Number [facility]# [id number] [address] [place] [address] documented in this encounter Visit Diagnoses Not [...] on Thu11/03/12 at 1210, Until Thu11/03/12 at 222, Pain, May give up to a maximum [...] Lexi Hutchison RN)1447 (Given - Provider: Lexi Hutchison RN)1452 (Given - Provider: Lexi Hutchison RN)1455 [...] RN) documented in this encounter Care Teams Mobile Developer Relationship Specialty Start Date End Date Kyle Rodríguez MD [address] [place] [address] PCP - General Internal Medicine 09/10/12 06/09/17 documented as of this encounter
--- OUTSIDE RECORDS SUMMARY | 2024-07-16 13:01 | XMS_ITS | Encounter Summary ---
Author Organization [facility] Address [address] [place] [address] Care Team Providers Care Grid Maker Name Role Phone gS Richards MD Primary Care Provider [phone] Reason for Visit * Auth/Cert Specialty Diagnoses / Procedures Referred By Contac t Referred To Contact Diagnoses LT. EAR MASS Procedures AL ARTHROPLASTY TMJ+PROSTHESIS Dylon Fung MD [address] [address] Referral ID Status Reason Start Date Expiration Date Visits Re quested Visits Authorized [id number] 04/13/2018 1 1 Encounter Details Date Type Department Care Team (Late st Contact Info) Description 06/17/2018 1:27 PM ANALYTICS ASSOCIATE Anesthesia Event [facility] Operating Room [address] [place] [address] Lisette Ruiz MD [address] [place] [address] Ga Angeles CRNA [address] [place] [address] Anesthesia Record Procedure Summary Procedure Name Responsible Anesthesiologist Anesthesia Start Time Anesthesia Stop Time ORALMAXILLOFACIAL DEVICE REMOVAL (Left: Face) Lisette Ruiz MD 06/17/18 1327 06/17/18 1635 Events Date Time Event Comment 06/17/2018 1236 1327 AN Equip Check Anesthesia eq uipment and materials checked in accordance with local policy. 1327 An Start 1327 An Start Data 1327 Pre-Induction Immediate pre- induction anesthetic assessment performed. Vital signs as noted on graphic. 1332 An Induction 1334 An Intubation 1341 Anesthesia Ready 1423 Quick Note Kenton : skin i ncision 1545 Throat Pack Placed 1602 Throat Pack Removed 1619 An Extubation Emergence unev entful Awake, spontaneous respirations. Adequate muscle strength demonstrated Adequate tidal volume. Orapharynx suctioned. Extubated with positive pressure ventilation. 1624 an stop data 1635 An Stop 06/18/2018 0831 Follow-up Complete Meds Name Total ceFAZolin in sterile water (ANCEF) 2 gra m/20 mL IV Syringe (PREMIX) 2,000 mg 2,000 mg dexamethasone (DECADRON) 4 mg/mL injecti on 10 mg ondansetron (ZOFRAN) 4??mg/2 mL injectio n 4 mg midazolam PF (VERSED) 1 mg/mL injection 2 mg fentaNYL (SUBLIMAZE) PF 50??mcg/mL injec tion 225 mcg lidocaine PF (XYLOCAINE MPF) 2% cardiac injection 60 mg propofol (DIPRIVAN) 10??mg/mL injection 280 mg oxymetazoline (AFRIN) 0.05% nasal spray 4 [place] lactated ringers infusion 1,000 mL * Agents Name Air Sevoflurane % Desflurane % Sevoflurane Desflurane O2 N2O Inspired N2O O2 * Blood No blood administrations on file. Lines, Drains, and Airways Type Details Placement Removal Wound 08/13/12; No; 1; Lef t:; ear; surgical wound; 11/28/21193208/13/12 0000 by Serafin Rodriguez RN 11/28/211932 by Nettie Maguire Wound 11/03/12; 1238; No; 1; Left:; ear; surgical wound; 11/28/21; 193311/03/12 1238 by Heather Bashir RN 11/28/211933 by Nettie Maguire Wound 11/03/12; 1402; No; 2; Left:; face; surgical wound; 11/28/21193311/03/12 1402 by Heather Bashir RN 11/28/211933 by Nettie Maguire Adult Incision 06/17/18; Left; ear; 06/24/18; 0528 06/17/18 0000 by Vanessa Gomez RN 06/24/18 0528 by PROVIDER, DISCHARGE PATIENT Peripheral IV Pre-Hospital Start: No; Orientation: Left; Location: Hand; Device: Angiocath; Gauge: 20 gauge; Needle Length: 1.25 in length; Insertion Attempts: 2 (per anes); Patient Tolerance: tolerated well; Removal Indication: site symptomatic; Removal Interventions: direct pressure, catheter intact 06/17/18 1244 by Lelo Chua RN 06/19/18 0445 by Michelle Zuleta RN Endotracheal Airway Type: NT Tube, curve d preformed tube (Easy Mask ventilation. ET sutured by Kenton/Head wrap done by Kenton); Cuff Pressure: minimal leak technique, minimal occluding volume, cuff inflated (cuff pressure 25cm h2O); Size: 7; Site: right nostril; Attempts: 1; FOV: I; cm: 26; Device: Video Laryngoscope; Blade: 3; Secured: secured with tape; Verification: Auscultated bilateral breath sounds, Equal chest movement, Continuous waveform capnography 06/17/18 1334 by Ga Angeles, JESUS 06/17/18 1619 by Lisette Ruiz MD Adult Incision 06/17/18; 1536; surgical incision; Left; face; 06/24/18; 0528 06/17/18 1536 by Negrita Fox RN 06/24/18 0528 by PROVIDER, DISCHARGE PATIENT Adult Incision 06/17/18; 1624; surgical incision; Left; ear; 06/21/18; 0148 06/17/18 1624 by Negrita Fox RN 06/21/18 0148 by Demetris Rosenbaum, RN documented in this encounter Social History Tobacco [...] Notes * Anesthesia Post-Op Follow-up Note - WurtAndrés feliz FNP - 06/18/2018 8:31 AM CST 06/18/2018 8:31 AM Kayla Avila No apparent anesthesia related complications. YOVANA Marinelli YTICS ASSOCIATE * Anesthesia Postprocedure Evaluation - Rossana Pena MD - 06/17/2018 5:13 PM CST Post Anesthesia Evaluation Vitals: BP (!) 152/78 Pulse 70 Temp 37 ??C Resp 18 Ht 5' 4 (1.626 m) Wt 95.3 kg (210 lb) LMP 06/10/2018 SpO2 98% BMI 36.05 kg/m?? Pain Rating: Nausea/Vomiting: no nausea and no vomiting Post-Op hydration: well hydrated Respiratory function: no respiratory symptoms Airway patency: normal Cardiovascular function: Normal - Regular rate and rhythm Mental status, LOC: 0=alert; keenly responsive Patient participated in evaluation: yes Unanticipated Events: no Rossana Pena MD YTICS ASSOCIATE * Anesthesia Handoff - Lisette Ruiz MD - 06/17/2018 4:35 PM CST Post-Anesthetic transfer of care report elements to appropriate post-anesthesia recovery environment completed in accordance with procedure. I completed my handoff to the receiving nurse during which we: 1. Identified the patient 2. Identified the responsible provider 3. Reviewed the pertinent medical history 4. Discussed the surgical course 5. Reviewed intra-op anesthesia management and issues during anesthesia 6. Set expectations for post-procedure period 7. Allowed opportunity for questions and acknowledgement of understanding. Vital Signs: BP: 144/90 (06/17/2018 4:34 PM) Pulse: 68 (06/17/2018 4:34 PM) Heart Rate: 67 bpm (06/17/2018 4:32 PM) Temp: 37 ??C (06/17/2018 4:34 PM) Resp: 15 (06/17/2018 4:34 PM) SpO2: 100 % (06/17/2018 4:34 PM) 4:35 PM Lisette Ruiz MD YTICS ASSOCIATE * Anesthesia Preprocedure Evaluation - Lisette Ruiz MD - 06/17/2018 12:29 PM CST Relevant Problems No relevant active problems Anesthesia Evaluation Airway Mallampati: IV TM distance: <3 FB Neck ROM: full Comment: TMJ Dental Comment: No loose teeth Pulmonary breath sounds clear to auscultation (+) sleep apnea, (-) asthma, shortness of breath, recent URI ROS comment: Current every day smoke Cardiovascular Exercise tolerance: good (-) murmur Rhythm: regular Rate: normal Neuro/Psych (+) seizures (epilepsy, last seizure 6 months ago), psychiatric history (depression, axiety) GI/Hepatic/Renal (+) GERD [...] to blood products. Plan discussed with Nurse Public Relations Supervisor and Surgeon. Smoking Compliance Patient did not smoke on day of surgery YTICS ASSOCIATE documented in this encounter Plan of Treatment Not on file documented as of this encounter Visit Diagnoses Not on filedocumented in this encounter Administered Medications Inactive Administered Medications - up to 3 most recent administrations Medication Order MAR Action Action Date Dose Rate Site ceFAZolin in sterile water (ANCEF) 2 gram/20 mL IV Syringe (PREMIX) 2,000 mg 2,000 mg, IV, ONE TIME ONLY, 1 dose, On Dhara 06/17/18 at 1315, Routine, Antibiotic Indication: Surgical prophylaxis Given 06/17/2018 1:50 PM ANALYTICS ASSOCIATE 2,000 mg dexamethasone (DECADRON) injection INTRA-PROCEDURE PRN, Starting on Dhara 06/17/18 at 1355, Until Dhara 06/17/18 at 1635, Routine, Anesthesia Intra-op Given 06/17/2018 1:55 PM ANALYTICS ASSOCIATE 10 mg fentaNYL PF (SUBLIMAZE) 50 mcg/mL injection INTRA-PROCEDURE PRN, Starting on Dhara 06/17/18 at 1327, Until Dhara 06/17/18 at 1635, Pain (See admin instructions), Routine, Anesthesia Intra-op Given 06/17/2018 4:22 PM ANALYTICS ASSOCIATE 25 mcg Given 06/17/2018 3:57 PM ANALYTICS ASSOCIATE 25 mcg Given 06/17/2018 3:49 PM ANALYTICS ASSOCIATE 25 mcg lactated Ringers solution INTRA-PROCEDURE CONTINUOUS PRN, Starting on Dhara 06/17/18 at 1327, Until Dhara 06/17/18 at 1635, Routine, Anesthesia Intra-op New Bag 06/17/2018 1:27 PM ANALYTICS ASSOCIATE lidocaine (XYLOCAINE MPF) 20 mg/mL (2 %) cardiac injection INTRA-PROCEDURE PRN, Starting on Dhara 06/17/18 at 1332, Until Dhara 06/17/18 at 1635, Other (See Comment), Routine, Anesthesia Intra-op Given 06/17/2018 1:32 PM ANALYTICS ASSOCIATE 60 mg midazolam (PF) (VERSED) injection INTRA-PROCEDURE PRN, Starting on Dhara 06/17/18 at 1327, Until Dhara 06/17/18 at 1635, Routine, Anesthesia Intra-op Given 06/17/2018 1:27 PM ANALYTICS ASSOCIATE 2 mg ondansetron (ZOFRAN) 4 mg/2 mL injection INTRA-PROCEDURE PRN, Starting on Dhara 06/17/18 at 1355, Until Dhara 06/17/18 at 1635, Nausea/Emesis, Routine, Anesthesia Intra-op Given 06/17/2018 1:55 PM ANALYTICS ASSOCIATE 4 mg oxymetazoline (AFRIN) 0.05 % nasal spray INTRA-PROCEDURE PRN, Starting on Dhara 06/17/18 at 1327, Until Dhara 06/17/18 at 1635, Routine, Anesthesia Intra-op Given 06/17/2018 1:32 PM ANALYTICS ASSOCIATE 2 Sprays Given 06/17/2018 1:27 PM ANALYTICS ASSOCIATE 2 Sprays propofol (DIPRIVAN) injection INTRA-PROCEDURE PRN, Starting on Dhara 06/17/18 at 1332, Until Dhara 06/17/18 at 1635, Anesthesia Intra-op Given 06/17/2018 2:35 PM ANALYTICS ASSOCIATE 80 mg Given 06/17/2018 1:32 PM ANALYTICS ASSOCIATE 200 mg documented in this encounter Care Teams Grid Maker Relationship Specialty Start Date End Date Sg Richards MD [address] [place] [address] PCP - General Internal Medicine 06/10/17 08/13/21 documented as of this encounter
--- OUTSIDE RECORDS SUMMARY | 2024-07-16 13:01 | XMS_ITS | Encounter Summary ---
Author Organization [facility] Address [address] [place] [address] Care Team Providers Care Multimedia Specialist Name Role Phone Sg Richards MD Primary Care Provider [phone] Reason for Visit * Auth/Cert Specialty Diagnoses / Procedures Referred By Contac t Referred To Contact Diagnoses LT. FACIAL CELLULITIS Dylon Fung MD [address] [facility] [address] [place] [address] Referral ID Status Reason Start Date Expiration Date Visits Re quested Visits Authorized [id number] 08/04/2018 1 1 Encounter Details Date Type Department Care Team (Late st Contact Info) Description 08/11/2018 3:20 PM ROUGH ROUNDER Anesthesia Event [facility] Operating Room [address] [place] [address] David Mukherjee MD [address] [place] [phone] Becca Real CRNA [address] [place] [address] Anesthesia Record Procedure Summary Procedure Name Responsible Anesthesiologist Anesthesia Start Time Anesthesia Stop Time ORALMAXILLOFACIAL DEVICE REMOVAL LT. MANDIBLE HARDWARE (Mouth) David Mukherjee MD 08/11/18 1520 08/11/18 1847 Events Date Time Event Comment 08/11/2018 1440 1506 AN Equip Check Anesthesia eq uipment and materials checked in accordance with local policy. 1520 An Start 1520 An Start Data [address] alexa nolasco ng wires 1531 Pre-Induction Immediate pre- induction anesthetic assessment performed. Vital signs as noted on graphic. 1532 An Induction 1534 An Intubation 1535 Anesthesia Ready 1641 Throat Pack Removed 1658 an john now L TMJ incision 1715 Handoff - Intraop Anesthesio logy transfer of care elements completed in accordance with procedure. 1833 An Extubation Emergence unev entful Awake, spontaneous respirations. Adequate muscle strength demonstrated Adequate tidal volume. Orapharynx suctioned. Extubated with positive pressure ventilation. 1838 an stop data 1847 An Stop 08/12/2018 0952 Follow-up Complete Meds Name Total fentaNYL (SUBLIMAZE) PF 50??mcg/mL injec tion 400 mcg lidocaine PF (XYLOCAINE MPF) 20 mg/mL sy ringe 60 mg midazolam PF (VERSED) 1 mg/mL injection 2 mg succinycholine (ANECTINE) 140 mg/7 mL iv syringe 140 mg propofol (DIPRIVAN) 10??mg/mL injection 250 mg dexamethasone (DECADRON) 4 mg/mL injecti on 8 mg ondansetron (ZOFRAN) 4??mg/2 mL injectio n 4 mg famotidine PF (PEPCID) 20mg/2 mL injecti on 20 mg ceFAZolin in sterile water (ANCEF) 2 gra m/20 mL IV Syringe (PREMIX) 2,000 mg 2,000 mg oxymetazoline (AFRIN) 0.05% nasal spray 4 Elsie hydromorPHONE (DILAUDID) 2 mg/mL injecti on 1 mg lactated ringers infusion 1,000 mL * Agents [...] No; 2; Left:; face; surgical wound; 11/28/21; 19311/03/12 1402 by Heather Bashir RN 11/28/211933 by Nettie Maguire PICC Single Lumen Present on Admission : No; Orientation: Left:; Location: basilic vein; Size: 4 Fr; PICC Length: 36; PICC Line Lot #: [id number]; PICC Line Manager Of Financial Planning: Bard; Insertion Attempts: 1; Patient Tolerance: tolerated well; Pain Prevention: intradermal injection; Power Injectable Compatible: Yes 06/19/18 0951 by Madai Curtis RN 11/27/18 1510 by Arin Sy RN Endotracheal Airway Type: NT Tube (BMV n ot attempted, intubated by ABA, moderate difficulty forceps not needed); Cuff Pressure: minimal leak technique, minimal occluding volume, cuff inflated; Size: 7; Site: right nostril; Attempts: 1; FOV: I; cm: 27; Device: Video Laryngoscope; Blade: 3; Secured: secured with tape; Verification: Auscultated bilateral breath sounds, Equal chest movement, Continuous waveform capnography 08/11/18 1533 by Becca Real CRNA 08/11/18 1838 by David Mukherjee MD Adult Incision 08/11/18; 1825; surgical incision; Left; face; 08/14/18; 0517 08/11/18 1825 by Juana Munroe RN 08/14/18 0517 by PROVIDER, DISCHARGE PATIENT documented in this [...] Notes * Anesthesia Post-Op Follow-up Note - Yesenia Bernal NP - 08/12/2018 9:51 AM CST 08/12/2018 9:51 AM Kayla Avila No apparent Anesthesia related complications. But patient didn't appreciate the tubes being ripped out of her nose in PACU. She stated she was crying and screaming when they were removed. Yesenia Bernal NP H ROUNDER * Anesthesia Postprocedure Evaluation - Mohit Roland MD - 08/11/2018 7:36 PM CST Phase I Postanesthesia Evaluation Including Modified Archie Score Patient seen and evaluated: Modified Archie Score: Score: 10 (08/11/181930) COMMENTS: No apparent Anesthesia related complications RESPIRATORY FUNCTION: Respiration: able to breath and cough freely (08/11/181930) [2=able to breathe and cough freely, 1=dyspnea, limited breathing or tachypnea, 0=apnea or mechanicventilator] O2 Saturation: able to maintain O2 saturation greater than 92% on room air (08/11/181930) [2=able to maintain O2 saturation greater than 92% on room air, 1=needs O2 inhalation to maintain O2 saturation greater than 90%, 0=O2 saturation less than 90% even with O2 supplement] Resp: 14 (08/11/181914)SpO2: 96 % (08/11/181914) CARDIOVASCULAR FUNCTION: Heart Rate: 69 bpm (08/11/181914) BP: 109/65 (08/11/181914) Circulation: BP within 20% of preanesthetic level (08/11/181930) [2=BP within 20% of preanesthetic level, 1=BP within 20-49% of preanesthetic level, 0=BP within 50%of preanesthetic level] MENTAL STATUS, NEURO, ACTIVITY: PATIENT PARTICIPATION IN EVALUATION:yes Consciousness: fully awake (08/11/181930) [2=fully awake, 1=arousable on calling, 0=not responding] Activity: able to move 4 extremities voluntarily or on command (08/11/181930) [2=able to move 4 extremities voluntarily or on command, 1=able to move 2 extremities voluntarily or on command, 0=unable to move extremities voluntarily or on command] TEMPERATURE: Temp: 36.2 ??C (08/11/18 1841) PAIN: Pain Rating: Rest: 10 (08/11/18 1915) NAUSEA AND VOMITING: no nausea and no vomiting POSTOPERATIVE HYDRATION: well hydrated Intake/Output Summary (Last 24 hours) at 08/11/181935 Last data filed at 08/11/18 1758 Gross per 24 hour Intake 1000 ml Output 0 ml Net 1000 ml Mohit Roland MD Zone Cell 08/11/2018 7:36 PM H ROUNDER * Anesthesia Handoff - David Mukherjee MD - 08/11/2018 6:46 PM CST Post-Anesthetic transfer of care report [...] and acknowledgement of understanding. Vital Signs: BP: 105/50 (08/11/2018 6:45 PM) Pulse: 83 (08/11/2018 11:51 AM) Heart Rate: 72 bpm (08/11/2018 6:45 PM) Temp: 36.2 ??C (08/11/2018 6:41 PM) Resp: 12 (08/11/2018 6:45 PM) SpO2: 100 % (08/11/2018 6:45 PM) 6:46 PM David Mukherjee MD H ROUNDER * Anesthesia Preprocedure Evaluation - Kathleen Panda MD - 08/11/2018 2:35 PM CST Relevant Problems No relevant active problems Anesthesia Evaluation Patient summary reviewed and Nursing notes reviewed Airway TM distance: >3 FB Neck ROM: full Comment: Currently wired shut. Dental Pulmonary breath sounds clear to auscultation (+) sleep apnea (noncompliant with cpap), (-) asthma, shortness of breath Cardiovascular Exercise tolerance: good (+) past TN, (-) hypertension, valvular problems/murmurs, dysrhythmias, angina Rhythm: regular Rate: normal Neuro/Psych (+) seizures well controlled, (-) TIA, CVA GI/Hepatic/Renal (-) GERD, liver disease, renal disease Endo/Other (-) diabetes mellitus, hypothyroidism, hyperthyroidism, blood dyscrasia Abdominal Anesthesia History History of difficult intubation. Questions solicited and answered. Okay to proceed. Anesthesia Plan ASA 3 General Intravenous induction Nasal ETT airway maintenance NPO status > 8 hours Anesthetic plan and risks discussed with Patient and Patient Designated Iron Handler. Plan discussed with Nurse Solar Photovoltaic Electrician. Post-op Pain Control Plan to use IV or IM medication and Per surgeon for post-op pain control. H ROUNDER documented in this encounter Miscellaneous Notes * Addendum Note - Yesenia Bernal NP - 08/12/2018 9:52 AM CST Addendum created 08/12/18951 by Yesenia Bernal NP Anesthesia Event edited, Sign clinical note H ROUNDER documented in this encounter Plan of Treatment [...] at 1530, Routine, Antibiotic Indication: Surgical prophylaxis Given 08/11/2018 3:38 PM ROUGH ROUNDER 2,000 mg dexamethasone (DECADRON) injection INTRA-PROCEDURE PRN, Starting on Thu08/11/18 at 1540, Until Thu08/11/18 at 1847, Routine, Anesthesia Intra-op Given 08/11/2018 3:40 PM ROUGH ROUNDER 8 mg famotidine PF (PEPCID) 20 mg/2 mL injection INTRA-PROCEDURE PRN, Starting on Thu08/11/18 at 1546, Until Thu08/11/18 at 1847, Routine, Anesthesia Intra-op Given 08/11/2018 3:46 PM ROUGH ROUNDER 20 mg fentaNYL PF (SUBLIMAZE) 50 mcg/mL injection INTRA-PROCEDURE PRN, Starting on Thu08/11/18 at 1526, Until Thu08/11/18 at 1847, Pain (See admin instructions), Routine, Anesthesia Intra-op Given 08/11/2018 5:08 PM ROUGH ROUNDER 50 mcg Given 08/11/2018 4:15 PM ROUGH ROUNDER 50 mcg Given 08/11/2018 4:11 PM ROUGH ROUNDER 50 mcg HYDROmorphone (DILAUDID) 2 mg/mL injection INTRA-PROCEDURE PRN, Starting on Thu08/11/18 at 1626, Until Thu08/11/18 at 1847, Pain (See admin instructions), Routine, Anesthesia Intra-op Given 08/11/2018 4:26 PM ROUGH ROUNDER 1 mg lactated ringers infusion INTRA-PROCEDURE CONTINUOUS PRN, Starting on Thu08/11/18 at 1511, Until Thu08/11/18 at 1847, Routine, Anesthesia Intra-op New Bag 08/11/2018 6:00 PM ROUGH ROUNDER New Bag 08/11/2018 3:11 PM ROUGH ROUNDER lidocaine PF (XYLOCAINE MPF) 100 mg/5 mL (2 %) injection INTRA-PROCEDURE PRN, Starting on Thu08/11/18 at 1532, Until Thu08/11/18 at 1847, Routine, Anesthesia Intra-op Given 08/11/2018 3:32 PM ROUGH ROUNDER 60 mg midazolam (PF) (VERSED) injection INTRA-PROCEDURE PRN, Starting on Thu08/11/18 at 1520, Until Thu08/11/18 at 1847, Routine, Anesthesia Intra-op Given 08/11/2018 3:20 PM ROUGH ROUNDER 2 mg ondansetron (ZOFRAN) 4 mg/2 mL injection INTRA-PROCEDURE PRN, Starting on Thu08/11/18 at 1554, Until Thu08/11/18 at 1847, Nausea/Emesis, Routine, Anesthesia Intra-op Given 08/11/2018 3:54 PM ROUGH ROUNDER 4 mg oxymetazoline (AFRIN) 0.05 % nasal spray INTRA-PROCEDURE PRN, Starting on Thu08/11/18 at 1515, Until Thu08/11/18 at 1847, Routine, Anesthesia Intra-op Given 08/11/2018 3:15 PM ROUGH ROUNDER 4 Sprays propofol (DIPRIVAN) injection INTRA-PROCEDURE PRN, Starting on Thu08/11/18 at 1529, Until Thu08/11/18 at 1847, Anesthesia Intra-op Given 08/11/2018 3:32 PM ROUGH ROUNDER 220 mg Given 08/11/2018 3:29 PM ROUGH ROUNDER 30 mg succinylcholine Chloride (ANECTINE) 140 mg/7 mL (20 mg/mL) injection INTRA-PROCEDURE PRN, Starting on Thu08/11/18 at 1533, Until Thu08/11/18 at 1847, Routine, Anesthesia Intra-op Given 08/11/2018 3:33 PM ROUGH ROUNDER 70 mg Given 08/11/2018 3:32 PM ROUGH ROUNDER 70 mg documented in this encounter Care Teams Multimedia Specialist Relationship Specialty Start Date End Date Sg Richards MD [address] [place] [phone] PCP - General Internal Medicine 06/10/17 08/13/21 documented as of this encounter
--- OUTSIDE RECORDS SUMMARY | 2024-07-16 13:01 | XMS_ITS | Encounter Summary ---
Author Organization [facility] Address [address] [place] [address] Care Team Providers Care Algorithm Developer Name Role Phone Sg Richards MD Primary Care Provider [phone]- [phone] Reason for Visit * Auth/Cert Specialty Diagnoses / Procedures Referred By Contac t Referred To Contact Diagnoses LT. FACIAL CELLULITIS Dylon Fung MD [address] [place] [id number] Referral ID Status Reason Start Date Expiration Date Visits Re quested Visits Authorized [id number] 07/23/2018 1 1 Encounter Details Date Type Department Care Team (Late st Contact Info) Description 08/04/2018 5:26 PM INFORMATION SYSTEMS PLANNER - 08/04/2018 6:41 PM [facility] Surgery [facility] Operating Room [address] [place] [phone] Dylon Fung MD [address] [place] [id number] Not Performed CASE CANCELLED Social History Tobacco Use Types Packs/Day Years [...] Comments Blood Pressure 104/68 08/04/2018 11:49 AM INFORMATION SYSTEMS PLANNER Pulse 74 08/04/2018 11:49 AM INFORMATION SYSTEMS PLANNER Temperature 36.9 ??C (98.4 ??F) 08/04/2018 11:[address] Respiratory Rate 16 08/04/2018 11:49 AM INFORMATION SYSTEMS PLANNER Oxygen Saturation 97% 08/04/2018 11:49 AM INFORMATION SYSTEMS PLANNER Inhaled Oxygen Concentration - - Weight 88.6 kg (195 lb 6.4 oz) 08/04/2018 11:49 AM INFORMATION SYSTEMS PLANNER Height 163.2 cm (5' 4.25 ) 08/04/2018 11:[address] Body Mass Index 33.28 08/04/2018 11:49 AM INFORMATION SYSTEMS PLANNER documented in this encounter Medications at Time [...] adaptive coping strategies Outcome Met:pre-op protocol explained RMATION SYSTEMS PLANNER * Sabrina-OP - Kalyn Hartman RN - 07/26/2018 9:46 AM CST Images from the original note were not included. [facility] Pre-Procedure Instructions PACE PACE Name: Kayla Avlia Age: 43 y.o. Please report to the: [x] Surgery Center [] [facility] (2nd Floor) [] Other: Date of [...] surgery. ?? BRING your insurance cards and tilt tray driver's license or photo ID. DO NOT [...] morning of surgery with sip of water RMATION SYSTEMS PLANNER documented in this encounter Plan of Treatment Not on file documented as of this encounter Procedures Procedure Name Priority Date/Time Associated Diagnosis Comments POC , URINE Routine 08/04/2018 12:20 PM INFORMATION SYSTEMS PLANNER EDUCATION ANESTHESIA (ADULT) Routine 07/26/2018 9:55 AM INFORMATION SYSTEMS PLANNER documented in this encounter Results * POC , URINE (08/04/2018 12:20 PM INFORMATION SYSTEMS PLANNER) HCG QUAL URINE Negative Negative 08/04/2018 1:39 PM INFORMATION SYSTEMS PLANNER [facility] [facility] Urine 08/04/2018 12:2 0 PM INFORMATION SYSTEMS PLANNER 08/04/2018 1:38 PM INFORMATION SYSTEMS PLANNER Dylon Fung MD POINT OF CARE TESTIN Cele [facility] [employer] [facility]# [id number] [place] [address] * EDUCATION ANESTHESIA (ADULT) - DARRELL (07/26/2018 9:55 AM INFORMATION SYSTEMS PLANNER) Education Name ANESTHESIA (ADULT) DARRELL EDUCATION INTERFACE Education URL [email or web address] DARRELL EDUCATION INTERFACE EDUCATION ACCESS CODE [id number] DARRELL EDUCATION INTERFACE EDUCATION ISSUE DATE Jul 26, 2018 DARRELL EDUCATION INTERFACE EDUCATION START DATE DARRELL EDUCATION INTERFACE EDUCATION COMPLETED DATE This program was not started and flagged as on: Aug 26, 2018 DARRELL EDUCATION INTERFACE EDUCATION EXPIRATION DATE Aug 25, 2018 DARRELL EDUCATION INTERFACE EDUCATION MESSAGE EVENT DARRELL EDUCATION INTERFACE 07/26/2018 9:55 AM INFORMATION SYSTEMS PLANNER Dylon Fung MD EXTERNAL EDUCATION O RDERABLES Performing Organization Address City/State/[facility] Co de Phone Number DARRELL EDUCATION INTERFACE [...] at 1712, Routine Given 08/04/2018 2:56 PM INFORMATION SYSTEMS PLANNER 50 Units lactated Ringers solution IV, at 125 mL/hr, PRE-PROCEDURE CONTINUOUS, Starting on Thu08/04/18 at 1200, Until Thu08/04/18 at 1712, Routine New Bag 08/04/2018 12:09 PM INFORMATION SYSTEMS PLANNER 125 mL/hr sodium chloride flush injection 10-30 mL 10-30 mL, IV, SEE ADMIN INSTRUCTIONS, Starting on Thu08/04/18 at 1448, Until Thu08/04/18 at 1712, Routine Given 08/04/2018 2:56 PM INFORMATION SYSTEMS PLANNER 10 mL documented in this encounter Active and Recently Administered Medications Times are shown in INFORMATION SYSTEMS PLANNER. Scheduled Medication Order 08/02/2018 08/03/2018 08/04/2018 heparin, [...] RN) documented in this encounter Care Teams Algorithm Developer Relationship Specialty Start Date End Date Sg Richards MD [address] [place] [phone] PCP - General Internal Medicine 06/10/17 08/13/21 documented as of this encounter
--- OUTSIDE RECORDS SUMMARY | 2024-07-16 13:01 | XMS_ITS | Encounter Summary ---
Author Organization [facility] Address 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 Procedures CYST LESION MASS EXCISION [facility] [address] [place] [address] Referral ID Status Reason Start Date Expiration Date Visits Re quested Visits Authorized [id number] Closed 1 1 Encounter Details Date Type Department Care Team (Late st Contact Info) Description 09/15/2012 12:45 PM COLORS CUSTODIAN - 09/15/2012 2:15 PM COLORS CUSTODIAN Surgery [facility] Operating Room [address] [place] [address] Lucía Gabriel MD [address] [place] [id number] CYST LESION MASS EXCISION Surgery Details Date/Time Status Location OR Service Patient Class Case Class Case Type Trauma Case? 09/15/2012 12:45 PM Posted [facility] OR MAIN OR 28 Otorhinolaryngology Surgical OP/Extende d Care Elective No Panel 1 Procedure LRB Anes Op Region Wound Class Comments CYST LESION MASS EXCISION Left Monitored Anesthetic Care Ear Clean-I Surgeon Surgeon Role Service Panel Dylon Fung MD Assisting Oralmaxillofacial 1 Lucía Gabriel MD Primary Otorhinolaryngology 1 Case Notes WORK COMP - CLAIM # [id number] PER VJ @ [employer] documented in this encounter Social History Tobacco [...] Sign Reading Time Taken Comments Blood Pressure 127/83 09/15/2012 12:16 PM COLORS CUSTODIAN Pulse 93 09/15/2012 12:16 PM COLORS CUSTODIAN Temperature 37.2 ??C (98.9 ??F) 09/15/2012 12:[address] Respiratory Rate 18 09/15/2012 12:16 PM COLORS CUSTODIAN Oxygen Saturation 98% 09/15/2012 12:16 PM COLORS CUSTODIAN Inhaled Oxygen Concentration - - Weight 99 kg (218 lb 3.2 oz) 09/15/2012 12:16 PM COLORS CUSTODIAN Height 162.6 cm (5' 4 ) 09/10/2012 10:58 AM COLORS CUSTODIAN Body Mass Index 37.45 09/10/2012 10:58 AM COLORS CUSTODIAN documented in this encounter Discharge Instructions * Discharge Instructions* Lelo Chua, RN - 09/15/2012 2:21 PM COLORS CUSTODIAN Discharge to home Return to the office to see Dr. Gabriel in 1 week Activity level increase activity as tolerated Call doctor [phone] for fever>101 degrees, uncontrolled pain, excessive bleeding, SAFETY For the next 24 hours, you [...] swelling orredness at incision site, trouble swallowing, temperature greater than 101 degrees, excessive bleeding at incision site. If you cannot contact your physician, call or come to the Emergency Room at [facility] ([phone]) or the nearest Emergency Room. In an emergency, Call 911. RS CUSTODIAN documented in this encounter Medications at Time of Discharge Medication Sig Dispensed Refills Start Date End Date gabapentin (NEURONTIN) 600 mg Oral tablet Take 1,200 mg by mouth 3 times daily. buPROPion SR 12 hour (WELLBUTRIN-SR) 150 mg Oral tablet Take 150 mg by mouth 2 times daily. amoxicillin-clavulanate (AUGMENTIN) 875-125 mg Oral tablet Take [...] as of this encounter H&P Notes * Lucía Gabriel MD - 09/15/2012 1:12 PM CST [place], [place] [address] History and Physical CSN: [id number] CHIEF COMPLAINT Amita is a 37-year-old female with a history of recurrent left ear canal/polypoid lesion. This was excised several weeks ago, it recurred. PAST MEDICAL HISTORY Anxiety, TMJ repair, arthritis, coronary artery disease, and sleep apnea. PAST SURGICAL HISTORY Multiple. Please see the patient's database. ALLERGIES Erythromycin. REVIEW OF SYSTEMS Noncontributory except above. PHYSICAL EXAMINATION GENERAL: She is well-nourished, well-developed in no acute distress. HEENT: Otologic exam reveals a left polypoid vascular-type ear canal lesion. Nasal, not congested. Oral cavity; no masses, ulcers, or lesions. NECK: No cervical adenopathy or palpable masses. HEART: Regular rate and rhythm. LUNGS: Clear. ABDOMEN: Soft. IMPRESSION Benign neoplasm in external auditory canal. PLAN Ear exam under anesthesia with excision of left ear canal lesion. SHH:MEDQ DID: [id number] Dictated by: Lucía Gabriel MD * Lucía Gabriel MD - 09/15/2012 12:37 PM CST History and physical dictated RS CUSTODIAN documented in this encounter OR Notes * OR Anesthesia - Scanning, Stl - 09/19/2012 1:53 PM CST RS CUSTODIAN * Operative Report - Lucía Gabriel MD - 09/17/2012 1:15 AM CST [place], [place] [address] Operative Report CSN: [id number] DATE OF SERVICE: 09/15/2012 SURGEON Lucía Gabriel MD PREOPERATIVE DIAGNOSIS Left ear canal lesion. POSTOPERATIVE DIAGNOSIS Left ear canal lesion. OPERATION NAME Excision of left ear canal lesion with operative microscope. ANESTHESIA Local with IV sedation. COMPLICATIONS None. BLOOD LOSS Minimal. INDICATIONS Amita has a history of recurrent granulation tissue type lesion in the left ear canal. This hadbeen excised previously and it has recurred. She was counseled on risks and benefits of repetitive procedure of lesion removal and she wished to go ahead. PROCEDURE IN DETAIL The patient was brought to the operating room and placed in supine position. Following induction ofIV sedation, the base of the lesion was injected with 1% lidocaine with 1:100,000 epinephrine. She was prepped and draped in usual fashion. The operative microscope was brought in. Lesion was gently grasped andwas excised at its base with a straight Collin blade. Again, it appeared to be somewhat friable granulation tissue in nature. At this time, Dr. Fung, her oral surgeon who had placed her TMJ prothesis many years ago came in and reprobed the base of the wound and the lacrimal probe and appeared to have connection point that extended down towards the temporomandibular joint fossa. Radiographs wereobtained of this which showed this to be the case. She tolerated the procedure well and there were no other obvious complications noted. Minor amount of bleeding was controlled with Bovie cautery. [place]-Wick and Ciprodex drops were placed and cotton balls in both the canals. She was then returned to anesthesia, awaken, and was taken back to ACU in stable condition. SHH:MEDQ DID: [id number] Dictated by: Lucía Gabriel MD * Sabrina-OP - Kathleen Aguilera RN - 09/15/2012 2:14 PM CST Ciprodex gtts left ear RS CUSTODIAN * OR Anesthesia - Katiuska Lin MD - 09/15/2012 12:53 PM CST Pre-Anesthesia Evaluation - Long Form 09/15/2012 12:53 PM Name: Amita Simpson Age: 37 y.o. Sex: female CSN: [id number] Procedure: Procedure(s): CYST LESION MASS EXCISION Surgeons/Assistants: Surgeon(s) and Role: * Lucía Gabriel MD - Primary * Dylon Fung MD - Assisting Allergies Allergen Reactions ??? Erythromycin Seizure ??? Other Drug (Unclassified Drug) Other (See Comments) States ilozone caused eyes to roll back in head & stopped breathing Prescriptions prior to admission Medication Sig Dispense Refill ??? gabapentin (NEURONTIN) 600 mg Oral tablet [...] by mouth every 4 hours as needed. ??? cefUROXime axetil (CEFTIN) 500 mg Oral tablet Take 500 mg by mouth every 12 hours. ??? piroxicam (FELDENE) 20 mg Oral capsule Take 20 mg by mouth daily. ??? amoxicillin (AMOXIL) 875 mg Oral tablet Take 875 mg by mouth every 12 hours. Current Facility-Administered Medications Medication Dose Route Frequency Provider Last Rate Last Dose ??? lactated ringers solution IV Pre-Proc Continuous Patrice Rodriguez MD 150 mL/hr at 09/15/12 1243 There are no active problems to display for this patient. Past Medical History Diagnosis Date ??? Anxiety ??? Arthritis left jaw ??? Depression ??? 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 Difficult intubation small mouth opening ??? Temporomandibular joint disorders, unspecified ??? Vertigo ??? Obstructive sleep apnea (adult) (pediatric) uses cpap ??? CAD (coronary artery disease) December 2011 [place] ??? Unspecified adverse effect of anesthesia Wakes during surgery, reports cardiac arrest Past Surgical History Procedure Date ??? Pr reconstr jaw,full,endo implnt from 2000 to 2008 total of [address] Dylon Fung ??? Pr exc skin benig 0.6-1cm trunk,arm,leg 08/13/2012 CYST LESION MASS EXCISION performed by Lucía Gabriel MD at [facility] OR MAIN History Substance Use Topics ??? Smoking status: Former Smoker Types: Cigarettes Quit date: 07/09/2012 ??? Smokeless tobacco: Not on file ??? Alcohol Use: No No family history on file. Previous Anesthesia Problems/Concerns: No anesthesia problems/complications History of PONV No Review of Systems Cardiovascular: h/o RI- no sequela Respiratory: negative Gastroenterology: negative DENNYS- refuses to use reccommended CPAP. Severe TMJ problems. PHYSICAL EXAM BP 127/83 Pulse 93 Temp(Src) 98.9 ??F (37.2 ??C) (Temporal) Resp 18 Ht 5' 4 (1.626 m) Wt218 lb 3.2 oz (98.975 kg) BMI 37.45 kg/m2 SpO2 98% LMP 08/17/2012 Weight: Weight: 218 lb 3.2 oz (98.975 kg) (09/15/12 1216) Height: Ht Readings from Last 1 Encounters: 09/10/12 5' 4 (1.626 m) BMI: Body mass index is 37.45 kg/(m^2). Airway: supple: Airway Class: IV (only [...] Component Value Date POC , URINE Negative 08/13/2012 No results found for this basename: glucpoc EK/13 normal sinus rhythm Other Studies/Considerations: Cardiac studies 02/28 Cardiac Stress Negative for ischemia 02/28 Cardiac ECHO Mild MR, TR, normal LVF EF 55-65% Postop pain management discussed yes Smoking/Tobacco Counseling: [...] solicited and answered. Yes Katiuska Lin MD RS CUSTODIAN documented in this encounter Miscellaneous Notes * Scanned Form - Scanning, Stl - 09/19/2012 1:53 PM CST Electronically signed by Interface, [facility] Gunnery/Ordnance Officer Incoming at 09/19/2012 1:53 PM COLORS CUSTODIAN * Scanned Form - Scanning, St - 09/19/2012 1:53 PM CST Electronically signed by Interface, [facility] [place] [facility] Gunnery/Ordnance Officer Incoming at 09/19/2012 1:53 PM COLORS CUSTODIAN * Patient Instructions - Scanning, St - 09/19/2012 1:53 PM CST Electronically signed by Interface, [facility] [place] [facility] Gunnery/Ordnance Officer Incoming at 09/19/2012 1:53 PM COLORS CUSTODIAN * Care Cynthia - Lelo Chua RN - 09/15/2012 2:17 PM CST Potential for pain related to surgical/procedural intervention Interventions: Assess level of pain/comfort utilizing verbal/nonverbal pain scales; assess culturalor adventism indicators attached to pain; administer pain medications as prescribed; utilize non-pharmacologic pain control and comfort measures Expected Outcome: Patient demonstrates and reports adequate pain control Outcome Met: comfortable RS CUSTODIAN * Care Cynthia - Renu Richter RN - 09/15/2012 12:23 PM CST Potential for anxiety related to surgical intervention Interventions: convey caring/supportive attitude; offer emotional support as needed; provide comfort measures (warm blanket, pillow, quiet environment); allow patient opportunity to verbalize concerns/fears/questions; explore coping behaviors; allow age-specific/special needs family support Expected Outcome: Patient will demonstrate decreased anxiety or adaptive coping strategies Outcome Met: patient calm and relaxed Knowledge deficit related to procedure/environment Interventions: Assess learning needs and willingness to learn; give clear, concise explanations of the environment and sequence of events surrounding the periop experience; address patient/family questions and concerns; provide teaching as indicated, provide teaching related to postoperative pain assessment utilizing pain scales Expected Outcome: Patient verbalizes or demonstrates awareness/understanding of surgery and perioperative experience Outcome Met: procedure discussed, verbalized understanding RS CUSTODIAN documented in this encounter Plan of Treatment Not on file documented as of this encounter Procedures Procedure Name Priority Date/Time Associated Diagnosis Comments PATHOLOGY Routine 09/15/2012 2:43 PM COLORS CUSTODIAN FUNGUS STAIN Stat 09/15/2012 2:13 PM COLORS CUSTODIAN WOUND CULTURE WITH GRAM STAIN Stat 09/15/2012 2:12 PM COLORS CUSTODIAN FUNGUS CULTURE, OTHER Stat 09/15/2012 2:12 PM COLORS CUSTODIAN XR MANDIBLE LESS THAN 4 VW Routine 09/15/2012 2:11 PM COLORS CUSTODIAN CYST LESION MASS EXCISION 09/15/2012 12:57 PM COLORS CUSTODIAN NEOPLASM OF THE EAR CANAL - LEFT SIDE Case Notes WORK COMP - CLAIM # [id number] PER VJ @ [facility] , URINE Routine 09/15/2012 12:40 PM COLORS CUSTODIAN documented in this encounter Results * PATHOLOGY (09/15/2012 2:43 PM COLORS CUSTODIAN) SURGICAL PATHOLOGY ?[facility] ?[address] ? [place], [place] ??[address] ? Patient: ??AMITA SIMPSON ? : ??1975 ? Procedure Date: ??09/15/2012 ? Accession Date: ??09/15/2012 ? Case No: ??[id number] ? Ordering Dr: ??LUCÍA GABRIEL ? Case type SW is performed by [facility] [place] [facility], [address], ? [place], [place] ??[address]; all other case types are performed by [facility] ? [facility], [address], [place] ??[address] ?SURGICAL PATHOLOGY & NON-GYNECOLOGIC CYTOPATHOLOGY REPORT ? DIAGNOSIS ? EXTERNAL AUDITORY CANAL, LEFT, EXCISION: ? - INFLAMMATORY POLYP (SEE MICROSCOPIC). ? Specimen Description: ? Left external ear mass. ? Operative Procedure: ? Excision of left ear canal lesion using binocular microscopy. ? Patient Information/Histo ry/Diagnosis: ? Not provided. ? Gross: ? The specimen is received in a container labeled Amita Simpson and ? left external ear mass and consists of a single fragment of pinkish-griggs, ? friable tissue, which measures 0.8 x 0.5 x 0.3 cm. The specimen is entirely ? submitted in A1. ? O/PJS 09.16.2012 05:59 am ? Microscopic: ? The slides are labeled [id number], Amita Simpson. ? The specimen consists of a polypoid piece of tissue surfaced by reactive, ? mildly hyperkeratotic squamous epithelium which contains an acute ? inflammatory infiltrate. There is no evidence of atypia. The stromal core ? is composed of granulation tissue with an acute and chronic inflammatory ? infiltrate. Glomeruli methenamine silver stain for fungus is negative. ? [facility]PJS 09.16.2012 09:19 am ? Staging Form: ? No ? ELECTRONIC SIGNATURE FOR INES FRITZ M.D.- 09/16/12 03:50 pm [facility] Specimen of unknown material (specimen) 09/15/2012 2:43 PM COLORS CUSTODIAN Lucía Gabriel MD PATHOLOGY/CYTOLOGY O RDERABLES Performing Organization Address City/[facility]/ZIP Co de Phone Number [facility] CLIA# [id number] [address] [place] [address] * FUNGUS STAIN (09/15/2012 2:13 PM COLORS CUSTODIAN) FINAL MICRO REPORT Refer to culture for smear result. [facility] Tissue specimen (specimen) TISSUE SPECIMEN FROM EAR / Unknown 09/15/2012 2:13 PM COLORS CUSTODIAN 09/15/2012 2:41 PM COLORS CUSTODIAN Comment:TISSUE/ EAR LEFT Narrative [facility] - 09/15/2012 4:24 PM COLORS CUSTODIAN Left external ear mass Lucía Gabriel MD MICROBIOLOGY - GENER AL ORDERABLES Performing Organization Address [facility] Co de Phone Number [facility] CLIA# [id number] [address] [place] [address] * (ABNORMAL) FUNGUS CULTURE, OTHER (09/15/2012 2:12 PM COLORS CUSTODIAN) FINAL MICRO REPORT Neyda parapsilosis isolated.(A) [facility] FUNGUS STAIN No mycotic elements seen(A) [facility] Tissue specimen (specimen) (Ear, left) 09/15/2012 2:12 PM COLORS CUSTODIAN 09/15/2012 2:40 PM COLORS CUSTODIAN Comment:TISSUE/ EAR LEFT Narrative [facility] Iconfinder [facility] - 10/12/2012 7:38 AM CDT Left external ear mass Lucía Gabriel MD MICROBIOLOGY - GENER AL ORDERABLES Performing Organization Address [facility]/ZIP Co de Phone Number [facility] CLIA# [id number] [address] [place] [address] * WOUND CULTURE WITH GRAM STAIN (09/15/2012 2:12 PM COLORS CUSTODIAN) FINAL MICRO REPORT Light growth normal skin senia [facility] [employer] [facility] GRAM STAIN No organisms seen No WBC's seen. [facility] Tissue specimen (specimen) (Ear, left) 09/15/2012 2:12 PM COLORS CUSTODIAN 09/15/2012 2:40 PM COLORS CUSTODIAN Comment:TISSUE/ EAR LEFT Narrative [facility] [employer] [facility] - 09/17/2012 8:46 AM COLORS CUSTODIAN Left external ear mass Lucía Gabriel MD MICROBIOLOGY - GENER AL ORDERABLES [facility] CLIA# [id number] [address] [place] [address] * XR MANDIBLE LESS THAN 4 VW (09/15/2012 2:11 PM COLORS CUSTODIAN) Anatomical Region Laterality Modality Head Computed Radiogr aphy 09/15/2012 1:45 PM COLORS CUSTODIAN Impressions 09/16/2012 8:32 AM COLORS CUSTODIAN IMPRESSION: ??Intraoperative radiograph. Narrative 09/16/2012 8:32 AM COLORS CUSTODIAN EXAMINATION: MANDIBLE, 4 VIEWS, 09/15/2012 CLINICAL HISTORY: ??Pain. FINDINGS: ??Examination of the mandible demonstrates radiopaque needle superimposing the temporomandibular joint. Radiopaque plate is present within the mandible. Procedure Note Patrice Montano MD - 09/16/2012 EXAMINATION: MANDIBLE, 4 VIEWS, 09/15/2012 CLINICAL HISTORY: Pain. FINDINGS: Examination of the mandible demonstrates radiopaque needle superimposing the temporomandibular joint. Radiopaque plate is present within the mandible. IMPRESSION IMPRESSION: Intraoperative radiograph. Dylon Fung MD DIAGNOSTIC IMAGING O RDERABLES * POC , URINE (09/15/2012 12:40 PM COLORS CUSTODIAN) , URINE POC Negative Negative [facility] [employer]confinder [facility] CLIA LICENSE [id number] [facility] 09/15/2012 12:4 0 PM COLORS CUSTODIAN 09/15/2012 12:40 PM COLORS CUSTODIAN Comment:URINE Lucía Gabriel MD POINT OF CARE TESTIN G [facility]# [id number] [address] [place], [place] [address] documented in this encounter Visit Diagnoses Not on filedocumented in this encounter Administered Medications Inactive Administered Medications - up to 3 most recent administrations Medication Order MAR Action Action Date Dose Rate Site lactated ringers solution IV, at 150 mL/hr, PRE-PROCEDURE CONTINUOUS, Starting on Thu09/15/12 at 1245, Until Thu09/15/12 at 1656, Routine New Bag 09/15/2012 12:43 PM COLORS CUSTODIAN 150 mL/hr documented in this encounter Active and Recently Administered Medications Times are shown in COLORS CUSTODIAN. Continuous Medication Order 09/13/2012 09/14/2012 09/15/2012 lactated ringers solution (CANCELED) IV, at 150 mL/hr, PRE-PROCEDURE CONTINUOUS, Starting on Thu09/15/12 at 1245, Until Thu09/15/12 at 1656, Routine 1243 (New Bag - Prov ider: Sammi Verma RN)1447 (Stopped - Provider: Lelo Chua RN) documented in this encounter Care Teams Sanding Machine Tender Automatic Relationship Specialty Start Date End Date Kyle Rodríguez MD [address] [place] [address] PCP - General Internal Medicine 09/10/12 06/09/17 documented as of this encounter
--- OUTSIDE RECORDS SUMMARY | 2024-07-16 13:02 | XMS_ITS | Encounter Summary ---
Author Organization [facility] Address 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 Procedures CYST LESION MASS EXCISION [employer] [address] [place] [address] Referral ID Status Reason Start Date Expiration Date Visits Re quested Visits Authorized [id number] Closed 1 1 Encounter Details Date Type Department Care Team (Latest Contact Info) Description 09/15/2012 11:13 AM FULL STACK DEVELOPER - 09/15/2012 2:56 PM FULL STACK DEVELOPER Hospital Encounter [facility] On License Of [facility] [address] [place] [address] Lucía Gabriel MD [address] [address] Discharge Disposition: Home or Self Care Social [...] Reading Time Taken Comments Blood Pressure 109/69 09/15/2012 2:46 PM FULL STACK DEVELOPER Pulse 89 09/15/2012 2:46 PM FULL STACK DEVELOPER Temperature 36.7 ??C (98 ??F) 09/15/2012 2:19 PM FULL STACK DEVELOPER Respiratory Rate 18 09/15/2012 2:46 PM FULL STACK DEVELOPER Oxygen Saturation 99% 09/15/2012 2:46 PM FULL STACK DEVELOPER Inhaled Oxygen Concentration - - Weight 99 kg (218 lb 3.2 oz) 09/15/2012 12:16 PM FULL STACK DEVELOPER Height 162.6 cm (5' 4 ) 09/10/2012 10:58 AM FULL STACK DEVELOPER Body Mass Index 37.45 09/10/2012 10:58 AM FULL STACK DEVELOPER documented in this encounter Discharge Instructions * Discharge Instructions* Lelo Chua RN - 09/15/2012 2:21 PM FULL STACK DEVELOPER Discharge to home Return to the office to see Dr. Gabriel in 1 week Activity level increase activity as tolerated Call doctor [phone] for fever>101 degrees, uncontrolled pain, excessive bleeding, [...] or come to the Emergency Room at [place] ([phone]) or the nearest Emergency Room. In an emergency, Call 911. STACK DEVELOPER documented in this encounter Medications at Time [...] Gabriel MD - 09/15/2012 1:12 PM CST [place], [place] [address] History and Physical CSN: [id number] CHIEF COMPLAINT Amita is a 37-year-old female [...] of left ear canal lesion. SHH:MEDQ DID: [id number] Dictated by: Lucía Gabriel MD * Lucía Gabriel MD - 09/15/2012 12:37 PM CST History and physical dictated STACK DEVELOPER documented in this encounter OR Notes * OR Anesthesia - Shelly Lombardi - 09/19/2012 1:53 PM CST STACK DEVELOPER * Operative Report - Lucía Gabriel MD - 09/17/2012 1:15 AM CST [place], [place] [address] Operative Report CSN: [id number] DATE OF SERVICE: 09/15/2012 SURGEON Lucía Gabriel [...] was brought in. Lesion was gently grasped and was excised at its base with a straight [place] blade. Again, it appeared to be somewhat friable granulation tissue in nature. At this time, Dr. 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 Radiographs were obtained of this which showed this to be the case. She tolerated the procedure well and there wereno other obvious complications noted. Minor amount of bleeding was controlled with Bovie cautery. Eric-Wick and Ciprodex drops were placed and cotton balls in both the canals. She was then returned to anesthesia, awaken, and was taken back to ACU in stable condition. SHH:MEDQ DID: [id number] Dictated by: Lucía Gabriel MD * Sabrina-OP - Kathleen Aguilera RN - 09/15/2012 2:14 PM CST Ciprodex gtts left ear STACK DEVELOPER * OR Anesthesia - Katiuska Lin MD - 09/15/2012 12:53 PM CST Pre-Anesthesia Evaluation - Long Form 09/15/2012 12:53 PM Name: Amita Simpson Age: 37 y.o. Sex: female CSN: [id number] Procedure: Procedure(s): CYST LESION MASS EXCISION Surgeons/Assistants: [...] ??? CAD (coronary artery disease) December 2011 MA ??? Unspecified adverse effect of anesthesia Wakes during surgery, reports cardiac arrest Past Surgical History Procedure Date ??? Pr reconstr jaw,full,endo implnt from 2000 to 2008 total of [address] Dylon Fung ??? Pr exc skin benig 0.6-1cm trunk,arm,leg 08/13/2012 CYST LESION MASS EXCISION performed by Lucía Gabriel MD at [facility] History Substance Use Topics ??? Smoking status: Former Smoker Types: Cigarettes Quit date: 07/09/2012 ??? Smokeless tobacco: Not on file ??? Alcohol Use: No No family history on file. Previous Anesthesia Problems/Concerns: No anesthesia problems/complications History of PONV No Review of Systems Cardiovascular: h/o MA- no sequela Respiratory: negative Gastroenterology: negative DENNYS- [...] solicited and answered. Yes Katiuska Lin MD STACK DEVELOPER documented in this encounter Miscellaneous Notes * Scanned Form - Scanning, St - 09/19/2012 1:53 PM CST Electronically signed by Noemi [facility] Supervisor [facility] Incoming at 09/19/2012 1:53 PM FULL STACK DEVELOPER * Scanned Form - Scanning, St - 09/19/2012 1:53 PM CST Electronically signed by Interface, [facility] Stl Supervisor [facility] Incoming at 09/19/2012 1:53 PM FULL STACK DEVELOPER * Patient Instructions - Shelly Lombardi - 09/19/2012 1:53 PM CST Electronically signed by Interface, [facility] St[facility] Supervisor [facility] Incoming at 09/19/2012 1:53 PM FULL STACK DEVELOPER * Care Plan - Lelo Chua RN - 09/15/2012 2:17 PM CST Potential for pain related to surgical/procedural intervention Interventions: Assess level of pain/comfort utilizing verbal/nonverbal pain scales; assess culturalor caodaism indicators attached to pain; administer pain medications as prescribed; utilize non-pharmacologic pain control and comfort measures Expected Outcome: Patient demonstrates and reports adequate pain control Outcome Met: comfortable STACK DEVELOPER * Care Plan - eRnu Richter RN - 09/15/2012 12:23 PM CST [...] experience Outcome Met: procedure discussed, verbalized understanding STACK DEVELOPER documented in this encounter Plan of Treatment Not on file documented as of this encounter Procedures Procedure Name Priority Date/Time Associated Diagnosis Comments PATHOLOGY Routine 09/15/2012 2:43 PM FULL STACK DEVELOPER FUNGUS STAIN Stat 09/15/2012 2:13 PM FULL STACK DEVELOPER WOUND CULTURE WITH GRAM STAIN Stat 09/15/2012 2:12 PM FULL STACK DEVELOPER FUNGUS CULTURE, OTHER Stat 09/15/2012 2:12 PM FULL STACK DEVELOPER XR MANDIBLE LESS THAN 4 VW Routine 09/15/2012 2:11 PM FULL STACK DEVELOPER CYST LESION MASS EXCISION 09/15/2012 12:57 PM FULL STACK DEVELOPER 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 ? [place], [place] ??[address] ? Patient: ??AMITA SIMPSON ? : ??1975 ? Procedure Date: ??09/15/2012 ? Accession Date: ??09/15/2012 ? Case No: ??[id number] ? Ordering Dr: ??LUCÍA GABRIEL ? Case type SW is performed by [facility], [address] [place] [address], ? [place], [place] ??[address]; all other case types are performed by [facility] ? [facility], [address], [place], [place] ??[address] ?SURGICAL PATHOLOGY & NON-GYNECOLOGIC CYTOPATHOLOGY REPORT ? [...] ? Microscopic: ? The slides are labeled [id number], Amita Simpson. ? The specimen consists of a polypoid piece of tissue surfaced by reactive, ? mildly hyperkeratotic squamous epithelium which contains an acute ? inflammatory infiltrate. There is no evidence of atypia. The stromal core ? is composed of granulation tissue with an acute and chronic inflammatory ? infiltrate. Glomeruli methenamine silver stain for fungus is negative. ? [facility] 09.16.2012 09:19 am ? Staging Form: ? No ? ELECTRONIC SIGNATURE FOR INES FRITZ M.D.- 09/16/12 03:50 pm [facility] [employer] [facility] Specimen of unknown material (specimen) 09/15/2012 2:43 PM FULL STACK DEVELOPER Lucía Gabriel MD PATHOLOGY/CYTOLOGY O RDERABLES [facility] [employer] [facility] CLIA# [id number] [address] [place] [address] * FUNGUS STAIN (09/15/2012 2:13 PM FULL STACK DEVELOPER) FINAL MICRO REPORT Refer to culture for smear result. [facility] Tissue specimen (specimen) TISSUE SPECIMEN FROM EAR / Unknown 09/15/2012 2:13 PM FULL STACK DEVELOPER 09/15/2012 2:41 PM FULL STACK DEVELOPER Comment:TISSUE/ EAR LEFT Narrative [facility] - 09/15/2012 4:24 PM FULL STACK DEVELOPER Left external ear mass Lucía Gabriel MD MICROBIOLOGY - GENER AL ORDERABLES Performing Organization Address [facility]/ZIP Co de Phone Number [facility] CLIA# [id number] [address] [place] [place] [address] * (ABNORMAL) FUNGUS CULTURE, OTHER (09/15/2012 2:12 PM FULL STACK DEVELOPER) FINAL MICRO REPORT Neyda parapsilosis isolated.(A) [facility] FUNGUS STAIN No mycotic elements seen(A) [facility] Tissue specimen (specimen) (Ear, left) 09/15/2012 2:12 PM FULL STACK DEVELOPER 09/15/2012 2:40 PM FULL STACK DEVELOPER Comment:TISSUE/ EAR LEFT Narrative [facility] - 10/12/2012 7:38 AM CDT Left external ear mass Lucía Gabriel MD MICROBIOLOGY - GENER AL ORDERABLES Performing Organization Address [facility] Co de Phone Number [facility] CLIA# [id number] [address] [place] [address] * WOUND CULTURE WITH GRAM STAIN (09/15/2012 2:12 PM FULL STACK DEVELOPER) FINAL MICRO REPORT Light growth normal skin senia [facility] GRAM STAIN No organisms seen No WBC's seen. [facility] Tissue specimen (specimen) (Ear, left) 09/15/2012 2:12 PM FULL STACK DEVELOPER 09/15/2012 2:40 PM FULL STACK DEVELOPER Comment:TISSUE/ EAR LEFT Narrative [facility] [employer] [facility] - 09/17/2012 8:46 AM FULL STACK DEVELOPER Left external ear mass Lucía Gabriel MD MICROBIOLOGY - GENER AL ORDERABLES [facility] CLIA# [id number] [address] [place] [address] * XR MANDIBLE LESS THAN 4 VW (09/15/2012 2:11 PM FULL STACK DEVELOPER) Anatomical Region Laterality Modality Head Computed Radiogr aphy 09/15/2012 1:45 PM FULL STACK DEVELOPER Impressions 09/16/2012 8:32 AM FULL STACK DEVELOPER IMPRESSION: ??Intraoperative radiograph. Narrative 09/16/2012 8:32 AM FULL STACK DEVELOPER EXAMINATION: MANDIBLE, 4 VIEWS, 09/15/2012 CLINICAL HISTORY: [...] * POC , URINE (09/15/2012 12:40 PM FULL STACK DEVELOPER) , URINE POC Negative Negative [facility] CLIA LICENSE [id number] [facility] [employer] [facility] 09/15/2012 12:4 0 PM FULL STACK DEVELOPER 09/15/2012 12:40 PM FULL STACK DEVELOPER Comment:URINE Luíca Gabriel MD POINT OF CARE TESTIN G [facility] CLIA# [id number] [address] [place] [address] documented in this encounter Visit Diagnoses Not on filedocumented in this encounter Administered Medications Inactive Administered Medications - up to 3 most recent administrations Medication Order MAR Action Action Date Dose Rate Site lactated ringers solution IV, at 150 mL/hr, PRE-PROCEDURE CONTINUOUS, Starting on Thu09/15/12 at 1245, Until Thu09/15/12 at 1656, Routine New Bag 09/15/2012 12:43 PM FULL STACK DEVELOPER 150 mL/hr documented in this encounter Active and Recently Administered Medications Times are shown in FULL STACK DEVELOPER. Continuous Medication Order 09/13/2012 09/14/2012 09/15/2012 lactated ringers solution (CANCELED) IV, at 150 mL/hr, PRE-PROCEDURE CONTINUOUS, Starting on Thu09/15/12 at 1245, Until Thu09/15/12 at 1656, Routine 1243 (New Bag - Prov ider: Sammi Verma RN)1447 (Stopped - Provider: Lelo Chua RN) documented in this encounter Care Teams Fabric Lay Out Worker Relationship Specialty Start Date End Date Kyle Rodríguez MD [address] [place] [address] PCP - General Internal Medicine 09/10/12 06/09/17 documented as of this encounter
--- OUTSIDE RECORDS SUMMARY | 2024-07-16 13:02 | XMS_ITS | Encounter Summary ---
Author Organization [employer] [facility] Address [address] [place] [address] Care Team Providers Care Textile Conservator Name Role Phone Davi Georges MD Primary Care Provider [phone] Encounter Details Date Type Department Care Team (Latest Contact Info) Description 08/08/2008 Outpatient Historical [facility] Dylon Fung MD [facility] [address] [address] Disturbances in Tooth Eruption; Mitral Valve Disorders; Anxiety State, Unspecified; Other Postprocedural Status; Encounter for Long-Term (Current) Use of Other Medications Social History Tobacco Use Types Packs/Day Years Used Date Smoking Tobacco: Never Assessed Sex and Gender Information Value Date Recorded Sex Assigned at Not on file Gender Identity Not on file Sexual Orientation Not on file documented as of this encounter Plan of Treatment Not on file documented as of this encounter Procedures Procedure Name Priority Date/Time Associated Diagnosis Comments ANAEROBIC/AEROBIC CULTURE W GRAM STAIN Routine 08/09/2008 6:37 PM ELECTRIC MOTOR MECHANIC FUNGUS STAIN Routine 08/09/2008 6:37 PM ELECTRIC MOTOR MECHANIC FUNGUS CULTURE, OTHER Routine 08/09/2008 6:37 PM ELECTRIC MOTOR MECHANIC POC , URINE Routine 08/09/2008 5:30 PM ELECTRIC MOTOR MECHANIC documented in this encounter Results * ANAEROBIC/AEROBIC CULTURE W GRAM STAIN (08/09/2008 6:37 PM ELECTRIC MOTOR MECHANIC) GRAM STAIN Rare Gram Negative Rods Rare WBC's seen [facility] PRELIMINARY REPORT Light growth Staphylococcus NOT S. aureus [facility] FINAL REPORT Light growth Staphylococcus NOT S. aureus [facility] Specimen obtained by aspiration (specimen) ENTIRE NECK / Unknown 08/09/2008 6:37 PM ELECTRIC MOTOR MECHANIC 08/09/2008 7:02 PM ELECTRIC MOTOR MECHANIC Narrative INTERFACE SYSTEM - 08/14/2008 7:06 AM ELECTRIC MOTOR MECHANIC LT NECK Dylon Fung MD MICROBIOLOGY - GENER AL ORDERABLES Performing Organization Address City/[facility] de Phone Number INTERFACE SYSTEM Refer to clinic/hospital department [facility] CLIA# [id number] [address] [place] [address] * FUNGUS STAIN (08/09/2008 6:37 PM ELECTRIC MOTOR MECHANIC) FINAL REPORT Refer to culture for smear result. [facility] Specimen obtained by aspiration (specimen) ENTIRE NECK / Unknown 08/09/2008 6:37 PM ELECTRIC MOTOR MECHANIC 08/09/2008 7:02 PM ELECTRIC MOTOR MECHANIC Narrative INTERFACE SYSTEM - 08/09/2008 9:17 PM ELECTRIC MOTOR MECHANIC LT NECK Dylon Fung MD MICROBIOLOGY - GENER AL ORDERABLES Performing Organization Address [facility] de Phone Number INTERFACE SYSTEM Refer to clinic/hospital department [facility] CLIA# [id number] [address] [place] [address] * FUNGUS CULTURE, OTHER (08/09/2008 6:37 PM ELECTRIC MOTOR MECHANIC) FUNGUS STAIN No mycotic elements seen [facility] PRELIMINARY REPORT No fungus isolated after 3 days. Culture will be held for 4 weeks. [facility] FINAL REPORT No fungus isolated after 4 weeks. [facility] Specimen obtained by aspiration (specimen) ENTIRE NECK / Unknown 08/09/2008 6:37 PM ELECTRIC MOTOR MECHANIC 08/09/2008 7:02 PM ELECTRIC MOTOR MECHANIC Narrative INTERFACE SYSTEM - 09/05/2008 7:31 AM ELECTRIC MOTOR MECHANIC LT NECK Dylon Fung MD MICROBIOLOGY - GENER AL ORDERABLES Performing Organization Address City/[facility] Co de Phone Number INTERFACE SYSTEM Refer to clinic/hospital department [facility] CLIA# [id number] [address] [place] [address] * POC , URINE (08/09/2008 5:30 PM ELECTRIC MOTOR MECHANIC) , URINE POC Negative Negative [facility] Urine specimen (specimen) 08/09/2008 5:30 PM ELECTRIC MOTOR MECHANIC 08/09/2008 5:30 PM ELECTRIC MOTOR MECHANIC Dylon Fung MD POINT OF CARE TESTIN G Performing Organization Address [facility] de Phone Number INTERFACE SYSTEM Refer to clinic/hospital department [facility] CLIA# [id number] [address] [place], [place] [address] documented in this encounter Visit Diagnoses Diagnosis Disturbances in tooth eruption Mitral valve disorders(424.0) Mitral valve disorders Anxiety state, unspecified Other postprocedural status(V45.89) Other postprocedural status Encounter for long-term (current) use of other medications documented in this encounter Additional Health Concerns Infection Onset Date Last Indicated Resolved Time COVID-19 08/17/2021 08/17/2021 09/16/2021 1:16 AM ELECTRIC MOTOR MECHANIC documented as of this encounter Care Teams Textile Conservator Relationship Specialty Start Date End Date Davi Georges MD [facility] [place] [employer] [place] [address] PCP - General Family Practice 08/14/21 documented as of this encounter
--- OUTSIDE RECORDS SUMMARY | 2024-07-16 13:02 | XMS_ITS | Encounter Summary ---
Author Organization [facility] Address [address] [place] [address] Care Team Providers Care Forepart Laster Name Role Phone Unavailable Primary Care Provider Unavailabl e Encounter Details Date Type Department Care Team (Latest Contact Info) Description 07/31/2008 Orders Only HIS CONVERSION Conversion, History Social History Tobacco Use Types Packs/Day Years Used Date Smoking Tobacco: Never Assessed Sex and Gender Information Value Date Recorded Sex Assigned at Not on file Gender Identity Not on file Sexual Orientation Not on file documented as of this encounter Progress Notes * Conversion, History - 12/22/2008 10:[address] [place] [address] cc: Dylon Fung DDS, MD B SURGEON Dylon Fung DDS, M.D. PREOPERATIVE DIAGNOSIS Abscessed tooth number 18. POSTOPERATIVE DIAGNOSIS Abscessed tooth number 18 and subcutaneous left submandibular abscess. OPERATION NAME 1. Surgical removal of tooth number 18. 2. Incision and drainage of left subcutaneous submandibular abscess. ANESTHESIA General anesthesia, via laryngeal mask airway. CO-SURGEON Ailyn Hutton MD PGY-4, M.D., plus Surgery resident. ESTIMATED BLOOD LOSS Minimal. FLUIDS REPLACED Please see Anesthesia report. DRAINS None. SPECIMENS Submandibular space to be sent for Gram stain, aerobes, anaerobes, acid-fast bacilli, and fungus. IMPLANTS None. Gelfoam and Surgicel to the affected areas. COMPLICATIONS None. COUNTS Correct x2. INDICATIONS FOR PROCEDURE This is a 33-year-old, female, with recent history of a submandibular abscess secondary to impacted tooth number 17. The patient subsequently developed significant pain from number 18 with chewing. The patient re-presented, and reported slight reaccumulation of material from the left submandibular area. However, none was noted upon the patient's presentation to the office. The patient did demonstrate exquisite tenderness to percussion of tooth number 18. The risks, benefits, and alternatives of management were reviewed at length with the patient, with the patient electing to proceed with the above procedure. FINDINGS The patient was taken to the operating room, placed in supine position on the table, and general anesthesia was induced via nasal laryngeal mask airway. The patient was then prepped and draped in the standard fashion for oral surgical procedures. Local anesthetic was then administered to lower mandibular on the left, and evaluation of the previous incision and drainage site did reveal a scant amount of reaccumulation of serosanguineous type of purulent material. This was aspirated into a syringe, and sent for microbiological assessment. This wound was then further explored, and irrigated and drained. Next, tooth number 18 had a buccal subperiosteal flap elevated. The tooth was surgically elevated, with subsequent excision. The wound was then packed, and the patient was then turned back over to the Anesthesia team for emergence from general anesthesia. DISPOSITION The patient had an unremarkable emergence from general anesthesia, was extubated on the table, and was transferred to the Post-Anesthesia Care Unit in stable condition. PRM:MEDQ Dictated by: Dylon Fung DDS, MD Dylon Fung DDS, MD Result Type: OPERATIVE REPORT Result Date: August 09, 2008 06:20 PM Result Status: UNREVIEWED ERN GENERATOR OPERATOR * Conversion, History - 12/22/2008 9:[address] [place], [place] [address] cc: Dylon Fung DDS, MD SURGEON Dylon Fung DDS, M.Leodan. PREOPERATIVE DIAGNOSIS 1. Left temporal mandibular joint ankylosis, status post total joint replacement. 2. Left facial abscess. 3. Full bony impacted tooth #17 with infection. POSTOPERATIVE DIAGNOSIS 1. Left temporal mandibular joint ankylosis, status post total joint replacement. 2. Left facial abscess. 3. Full bony impacted tooth #17 with infection. OPERATION NAME 1. Left neck submandibular space incision and drainage via intraoral and extraoral approaches. 2. Surgical removal of full bony unusually difficult tooth #17. ANESTHESIA General anesthesia via oral endotracheal tube. ESTIMATED BLOOD LOSS Minimal. FLUID REPLACEMENT Please see concomitant anesthesia report. DRAINS None. SPECIMEN A specimen was sampled approximately 10 mL of a serosanguineous hyper-purulent material for gram-stain, aerobes, anaerobes, AFB and fungus. IMPLANTS None. COMPLICATIONS None. COUNTS Count correct x2. INDICATIONS This is a 33-year-old female, a few months status post left temporomandibular joint total joint replacement. The patient, approximately 1 week prior, developed left angle mandible area-second submandibular swelling that was discrete and exquisitely tender. The patient was put on antibiotics with some- marginal improvement. The risks, benefits and alternatives of management were reviewed at length and the patient elected to proceed with the above procedure. FINDINGS The patient was taken to the operating room, placed in supine position on the table and general anesthesia was induced via oral endotracheal tube. The patient was then prepped and draped in standard fashion for oral infections. A standard 18 gauge needle was then used with a syringe to aspirate the swollen fluctuant area with aspirant to approximately 10 mL of somewhat serosanguineous -- purulent- appearing material. This was handed off for this gram stain, aerobes, anaerobes, AFB and fungus. At the completion of this the oral cavity was explored and a standard posterior retromolar saddle type incision was made followed by elevation of a buccal subperiosteal flap. Tooth number #17 was then exposed with a rotary instrument and sectioned with the segments removed with forceps. Once this was done, the wound was copiously irrigated and exploration down the buccal aspect of mandible revealed immediate and direct communication with the aspirated area. At that point it was elected to proceed with opening the external; a 1 cm incision was made where the aspiration needle was, approximately two finger-breadths inferior to the inferior border -- angle mandible. The space was exposed and connected internal and external routes, followed by copious irrigation with removal of debris material. Further exposure revealed no communication between this infected area and the total joint prosthesis. At the completion of copious irrigation, a 3/4 inch Rena drain was placed at the depths of the wound extraorally and set in place with a 3-0 silk suture. The intraoral was then copiously irrigated, evacuated and closed with 3-0 chromic gut suture. Dressing was placed over the drain and the patient was then turned back over to the anesthesia team for emergence from general anesthesia. Disposition: The patient had an unremarkable emergence from general anesthesia, was extubated on the table and transferred to the post anesthesia care unit in stable condition. PRM:MEDQ Dictated by: Dylon Fung DDS, MD Dylon Fung DDS, MD Result Type: OPERATIVE REPORT Result Date: July 31, 2008 01:43 PM Result Status: UNREVIEWED ERN GENERATOR OPERATOR documented in this encounter Plan of Treatment Not on file documented as of this encounter Visit Diagnoses Not on filedocumented in this encounter
--- OUTSIDE RECORDS SUMMARY | 2024-07-16 13:02 | XMS_ITS | Encounter Summary ---
Author Organization [facility] Address [address] [place] [address] Care Team Providers Care Computer Numerical Control Grinder Name Role Phone Emmanuel Rodríguez MD Primary Care Provider Unavailabl e Reason for Visit * Outpatient Services (Routine) - Closed Specialty Diagnoses / Procedures Referred By Suman perdue Referred To Contact MRI Diagnoses Headache(784.0) Procedures MRI TEMPROMANDIBULAR JOINTS Dylon Fung MD [address] [address] Referral ID Status Reason Start Date Expiration Date Visits Re quested Visits Authorized [id number] Closed 11/25/2010 11/23/2011 1 1 Encounter Details Date Type Department Care Team (Latest Contact Info) Description 12/06/2010 8:13 AM CDT - 12/06/2010 11:59 PM CDT Hospital Encounter [facility] [address] [place] [id number] Dylon Fung MD [address] [address] Discharge Disposition: Home or Self Care Social History Tobacco Use Types Packs/Day Years Used Date Smoking Tobacco: Never Assessed Sex and Gender Information Value Date Recorded Sex Assigned at Not on file Gender Identity Not on file Sexual Orientation Not on file documented as of this encounter Miscellaneous Notes * Scanned Form - [facility], [facility] - 12/11/2010 12:07 PM CDT * Scanned Form - [facility], [facility] - 12/10/2010 4:40 PM CDT documented in this encounter Plan of Treatment Not on file documented as of this encounter Procedures Procedure Name Priority Date/Time Associated Diagnosis Comments MRI TEMPROMANDIBULAR JOINTS Routine 12/06/2010 9:45 AM CDT Headache documented in this encounter Results * MRI TEMPROMANDIBULAR JOINTS (12/06/2010 9:45 AM CDT) Anatomical Region Laterality Modality Head Magnetic Resonan ce 12/06/2010 9:15 AM CDT Impressions 12/09/2010 9:01 AM CDT IMPRESSION: 1. Right temporomandibular joint: Anterior disc displacement with reduction on mouth opening. 2. The left temporomandibular joint is not imaged due to a titanium prosthesis of the temporomandibular joint. Narrative 12/09/2010 9:01 AM CDT MRI TEMPOROMANDIBULAR JOINTS, 12/06/2010 History: Left temporomandibular joint prosthesis. ??Headache and discomfort in the right temporomandibular joint. Technique: T1, T2 and gradient echo images performed in the open and closed-mouth positions. The right temporomandibular joint was studied. The left temporomandibular joint was not imaged due to a titanium prosthesis in this location. Comparison is made to prior MRI of the temporomandibular joints from 03/26/[address] of the maxillofacial region from 04/04/2008. Findings: Right temporomandibular joint: In the closed-mouth position, the disc is anteriorly displaced. In the open-mouth view, there is reduction of the disc to a more superior position. The translation of the mandibular condyle is mildly limited. This may be due to the prosthesis on the left. No abnormal T2 signal is identified within the mandibular condyle. The marrow of the temporomandibular fossae is normal. The disc appears normal in configuration. Procedure Note Aminata Huynh MD - 12/09/2010 MRI TEMPOROMANDIBULAR JOINTS, 12/06/2010 History: Left temporomandibular joint prosthesis. Headache and discomfort in the right temporomandibular joint. Technique: T1, T2 and gradient echo images performed in the open and closed-mouth positions. The right temporomandibular joint was studied. The left temporomandibular joint was not imaged due to a titanium prosthesis in this location. Comparison is made to prior MRI of the temporomandibular joints from 03/26/[address] of the maxillofacial region from 04/04/2008. Findings: Right temporomandibular joint: In the closed-mouth position, the disc is anteriorly displaced. In the open-mouth view, there is reduction of the disc to a more superior position. The translation of the mandibular condyle is mildly limited. This may be due to the prosthesis on the left. No abnormal T2 signal is identified within the mandibular condyle. The marrow of the temporomandibular fossae is normal. The disc appears normal in configuration. IMPRESSION IMPRESSION: 1. Right temporomandibular joint: Anterior disc displacement with reduction on mouth opening. 2. The left temporomandibular joint is not imaged due to a titanium prosthesis of the temporomandibular joint. Dylon Fung MD MR ORDERABLES documented in this encounter Visit Diagnoses Diagnosis Headache(784.0) Headache documented in this encounter Care Teams Computer Numerical Control Grinder Relationship Specialty Start Date End Date Emmanuel Rodríguez MD PCP - General Internal Medicine 12/02/10 08/08/12 documented as of this encounter
--- OUTSIDE RECORDS SUMMARY | 2024-07-16 13:02 | XMS_ITS | Encounter Summary ---
Author Organization [facility] Address [address] [place] [address] Care Team Providers Care Toll Collector Name Role Phone Unavailable Primary Care Provider Unavailabl e Reason for Visit * Auth/Cert - Closed Specialty Diagnoses / Procedures Referred By Suman t Referred To Contact General Surgery Diagnoses EAR CANAL NEOPLASM Procedures CYST LESION MASS EXCISION [facility] Or [address] [place] [address] Referral ID Status Reason Start Date Expiration Date Visits Re quested Visits Authorized [id number] Closed 1 1 Encounter Details Date Type Department Care Team (Late st Contact Info) Description 08/13/2012 10:15 AM HOT PRESS OPERATOR - 08/13/2012 11:40 AM HOT PRESS OPERATOR Surgery [facility] Operating Room [address] [place] [address] Lucía Daily MD [address] [place] [id number] CYST LESION MASS EXCISION Surgery Details Date/Time Status Location OR Service Patient Class Case Class Case Type Trauma Case? 08/13/2012 10:15 AM Posted [facility] OR MAIN OR 22 Otorhinolaryngology Surgical OP/Extende d Care Elective No Panel 1 Procedure LRB Anes Op Region Wound Class Comments CYST LESION MASS EXCISION Left Monitored Anesthetic Care Clean-I Surgeon Surgeon Role Service Panel Lucía Daily MD Primary Otorhinolaryngology 1 Case Notes [employer], CLAIM # [id number] AUTHORIZED BY ZHANG documented in this encounter Social History Tobacco [...] Sign Reading Time Taken Comments Blood Pressure 105/86 08/13/2012 11:23 AM HOT PRESS OPERATOR Pulse 86 08/13/2012 11:23 AM HOT PRESS OPERATOR Temperature 36.5 ??C (97.7 ??F) 08/13/2012 11:[address] Respiratory Rate 20 08/13/2012 11:23 AM HOT PRESS OPERATOR Oxygen Saturation 100% 08/13/2012 11:23 AM HOT PRESS OPERATOR Inhaled Oxygen Concentration - - Weight 96.6 kg (213 lb) 08/09/2012 10:49 AM HOT PRESS OPERATOR Height 162.6 cm (5' 4 ) 08/09/2012 10:49 AM HOT PRESS OPERATOR Body Mass Index 36.56 08/09/2012 10:49 AM HOT PRESS OPERATOR documented in this encounter Discharge Instructions * Discharge Instructions* Annie Guerra RN - 08/13/2012 11:28 AM HOT PRESS OPERATOR Discharge to home Return to the office to see Dr. Daily in 1 week Activity level as tolerated. Call doctor [phone] for fever>101 degrees, uncontrolled pain, excessive bleeding, shortnessof breath. Ciprodex drops 5 drops 2 times per day for 7 days SAFETY For the next 24 hours, you [...] or come to the Emergency Room at [place] ([phone]) or the nearest Emergency Room. In an emergency, Call 911. PRESS OPERATOR documented in this encounter Medications at Time of Discharge Medication Sig Dispensed Refills Start Date End Date gabapentin (NEURONTIN) 600 mg Oral tablet Take 1,200 mg by mouth 3 times daily. buPROPion SR 12 hour (WELLBUTRIN-SR) 150 mg Oral tablet Take 150 mg by mouth 2 times daily. cefUROXime axetil (CEFTIN) 500 mg Oral tablet Take 500 mg by mouth every 12 hours. 09/15/2012 meclizine (ANTIVERT) 12.5 mg Oral tablet Take 25 mg by mouth every 6 hours. 06/21/2018 amitriptyline (ELAVIL) 10 mg Oral tablet Take 10 mg by mouth daily at bedtime. Takes six tablets every every evening for sleep 06/21/2018 piroxicam (FELDENE) 20 mg Oral capsule Take 20 mg by mouth daily. 06/21/2018 amoxicillin (AMOXIL) 875 mg Oral tablet Take 875 mg by mouth every 12 hours. 09/15/2012 HYDROcodone-acetaminophe n (NORCO) 7.5-325 mg Oral Tab Take 2 Tabs by mouth every 4 hours as needed. 05/25/2015 documented as of this encounter H&P Notes * Shelly Lombardi - 08/16/2012 3:25 PM CST PRESS OPERATOR * Lucía Daily MD - 08/13/2012 9:05 AM CST I have reviewed the last H&P and assessed the patient today and there are no changes. CV-RRR PULM-CTA ABD-SOFT NEURO-INTACT GROSSLY PRESS OPERATOR documented in this encounter Consult Notes * Shelly Lombardi - 08/16/2012 3:25 PM CST Electronically signed by Interface, [facility] Flow Nurse Incoming at 08/16/2012 3:25 PM HOT PRESS OPERATOR documented in this encounter OR Notes * OR Anesthesia - Shelly Lombardi - 08/16/2012 3:25 PM CST Electronically signed by Interface, [facility] Flow Nurse Incoming at 08/16/2012 3:25 PM HOT PRESS OPERATOR * Operative Report - Lucía Daily MD - 08/14/2012 12:16 AM CST [place], [place] [address] Operative Report CSN: [id number] DATE OF SERVICE: 08/13/2012 SURGEON Luíca Daily MD PREOPERATIVE DIAGNOSIS Left ear canal lesion. POSTOPERATIVE DIAGNOSIS Left ear canal lesion. OPERATION NAME Excision of left ear canal lesion with operative microscope. ANESTHESIA Local with IV sedation. COMPLICATIONS None. BLOOD LOSS Minimal. INDICATIONS Amita has a history of recurrent and persistent left ear pain and granulation tissue type polyplesion in the left external auditory canal just inside the meatus pedicled on the anterior canal wall. This did not respond to conservative management. She elected to have this surgically excised. The risks and benefits of surgery including pain, bleeding, need for further surgery, infection, fair control of symptoms, recurrence, or problem in future and more aggressive surgery were discussed. She wished to proceed. PROCEDURE IN DETAIL The patient was brought to the operating room and placed in supine position. Following induction ofIV sedation, local anesthesia with 1% lidocaine with 1:100,000 epinephrine was injected in the baseof the lesion. She was then prepped and draped in usual fashion. Next, the microscope was brought in. Next, the straight Ophiem blade was used to incise the base of the lesion and pedunculated granulation tissue type polyp was removed and passed off the field. The base of the area was cauterized with bipolar cautery and insulated bipolar cautery on a low setting. Additional hemostasis was ensured with topical adrenaline. After this, the speculum was reintroduced and using the microscope, the proximal ear canal was reviewed and evaluated and it was normal. The tympanic membrane was normal. There appeared to be no obvious exposure of the TMJ prosthesis in the wound itself. Next, a Stowe- Wick was placed and Ciprodex dropswere placed in the canal on top of this. She has had minimal bleeding, was returned to anesthesia. She was fully awaken and was taken back to [facility] in stable condition. SHH:MEDQ DID: [id number] Dictated by: Lucía Daily MD PRESS OPERATOR * OR Anesthesia - Kian Day MD - 08/13/2012 10:22 AM CST Pre-Anesthesia Evaluation - Long Form 08/13/2012 10:23 AM Name: Amita Simpson Age: 37 y.o. Sex: female CSN: [id number] Procedure: Procedure(s): CYST LESION MASS EXCISION Surgeons/Assistants: Surgeon(s) and Role: * Lucía Daily MD - Primary Allergies Allergen Reactions ??? [...] mg by mouth every 12 hours. ??? amoxicillin (AMOXIL) 875 mg Oral tablet Take 875 mg by mouth every 12 hours. Current Facility-Administered Medications Medication Dose Route Frequency Provider Last Rate Last Dose ??? lactated ringers solution IV Pre-Proc Continuous Arnold, Patrice E, MD 150 mL/hr at 08/13/12 1015 There are no active problems to display for this patient. Past Medical History Diagnosis Date ??? Anxiety ??? Arthritis left jaw ??? Depression ??? 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 Obstructive sleep apnea (adult) (pediatric) uses cpap ??? Difficult intubation small mouth opening ??? Unspecified adverse effect of anesthesia Wakes during surgery, reports cardiac arrest ??? Temporomandibular joint disorders, unspecified ??? Vertigo ??? CAD (coronary artery disease) December 2011 [place] Past Surgical History Procedure Date ??? Pr reconstr jaw,full,endo implnt from 2000 to 2008 total of [address] Dylon Fung History Substance Use Topics ??? Smoking status: Former Smoker Types: Cigarettes Quit date: 07/09/2012 ??? Smokeless tobacco: Not on file ??? Alcohol Use: No No family history on file. Previous Anesthesia Problems/Concerns:Multiple pt concerns with anesthesia: apparently has had intra-op awareness, has flat lined during GA, and is difficult to intubate, Had ? NM under anesthesia History of PONV No Review of Systems Cardiovascular: ? NM 2011 no intervention Respiratory: +DENNYS on CPAP Gastroenterology: negative +TMJ PHYSICAL EXAM BP 128/70 Pulse 104 Temp(Src) 99 ??F (37.2 ??C) (Temporal) Resp 20 Ht 5' 4 (1.626 m) Wt 213 lb (96.616 kg) BMI 36.56 kg/m2 LMP 07/02/2012 Weight: Weight: 213 lb (96.616 kg) (08/09/12 1049) Height: Ht Readings from Last 1 Encounters: 08/09/12 5' 4 (1.626 m) BMI: Body mass index is 36.56 kg/(m^2). Airway: normal range of motion: Airway Class: III (soft palate, base of uvula visible); Mouth Opening 2 Finger Breadth Lungs: clear to auscultation bilaterally, [...] Component Value Date POC , URINE Negative 12/06/2008 No results found for this basename: glucpoc EK/13 normal sinus rhythm Other Studies/Considerations: Cardiac studies 02/28 Cardiac Stress Negative for ischemia 02/28 Cardiac ECHO Mild MR, TR, normal LVF EF 55-65% 11/25 Old anesthesia full record in paper chart Grade 2 view, Glidescope used 07/28 Old anesthesia full record in paper chart LMA #3 used 04/26 Old anesthesia full record in paper chart Grade 4 view, Nasal intubation done Postop pain management discussed yes Smoking/Tobacco Counseling: None Recommendations: DENNYS precautions, Potential difficult intubation, Potential difficult intravenous access or Nausea prophylaxis [facility] report reviewed. No interval changes in patient's history or review of systems.Yes ASA Physical Status: ASA 3 - Patient with moderate systemic disease with functional limitations I have seen and examined this patient and confirm that all data is current and accurate. Yes Choice of Anesthesia/Anesthesia Plan: Proceed and Monitored Anesthesia Care I have discussed the anesthetic options and the risks/benefits with the patient/family. Questions have been solicited and answered. Yes Kian Day MD PRESS OPERATOR * Ankush-OP - Serafin Rodriguez, RN - 08/13/2012 10:22 AM CST LIDOCAINE 1% WITH EPINEPHRINE 1:100,000 ML injected Epi 1:1000 topical, Ciprodex gtts left ear Report called to PACU PRESS OPERATOR documented in this encounter Miscellaneous Notes * Scanned Form - Scanning, Stl - 08/16/2012 3:25 PM CST Electronically signed by Interface, [facility] Flow Nurse Incoming at 08/16/2012 3:25 PM HOT PRESS OPERATOR * Scanned Form - Scanning, St 08/16/2012 3:25 PM CST Electronically signed by Interface, [facility] Flow Nurse Incoming at 08/16/2012 3:25 PM HOT PRESS OPERATOR * Scanned Form - Scanning, St 08/16/2012 3:25 PM CST Electronically signed by Interface, [facility] Flow Nurse Incoming at 08/16/2012 3:25 PM HOT PRESS OPERATOR * Scanned Form - Scanning, St - 08/16/2012 3:25 PM CST Electronically signed by Interface, [facility] Flow Nurse Incoming at 08/16/2012 3:25 PM HOT PRESS OPERATOR * Scanned Form - Scanning, St 08/16/2012 3:25 PM CST Electronically signed by Interface, [facility] Flow Nurse Incoming at 08/16/2012 3:25 PM HOT PRESS OPERATOR * Patient Instructions - Scanning, St - 08/16/2012 3:25 PM CST Electronically signed by [facility], [facility] Flow Nurse Incoming at 08/16/2012 3:25 PM HOT PRESS OPERATOR * Care Plan - Mari, Annie Hassan RN - 08/13/2012 11:27 AM CST Knowledge deficit related to post-discharge care Interventions: Assess learning needs and willingness to learn; give clear, concise explanations of the care required post-discharge; address patient/family questions and concerns; provide teaching asindicated Expected Outcome: Patient and/or family/significant other demonstrate(s) behaviors required for performance of activities enhancing recovery post-discharge Outcome Met: Patient and family significant other demonstrates behaviors required for performance of activities enhancing recovery post discharge. Potential for pain related to surgical/procedural intervention Interventions: Assess level of pain/comfort utilizing verbal/nonverbal pain scales; assess culturalor christianity indicators attached to pain; administer pain medications as prescribed; utilize non-pharmacologic pain control and comfort measures Expected Outcome: Patient demonstrates and reports adequate pain control Outcome Met:Patient demonstrates and reports adequate pain control. PRESS OPERATOR * Care Plan - Macho Vaughan RN - 08/13/2012 9:47 AM CST Potential for anxiety related to [...] of surgery and perioperative experience Outcome Met: ankush op procedures explained PRESS OPERATOR documented in this encounter Plan of Treatment Not on file documented as of this encounter Procedures Procedure Name Priority Date/Time Associated Diagnosis Comments PATHOLOGY Routine 08/13/2012 11:57 AM HOT PRESS OPERATOR CYST LESION MASS EXCISION 08/13/2012 10:19 AM HOT PRESS OPERATOR EAR CANAL NEOPLASM Case Notes [employer], CLAIM # [id number] AUTHORIZED BY ZHANG MCKINNEY , URINE Routine 08/13/2012 10:15 AM HOT PRESS OPERATOR documented in this encounter Results * PATHOLOGY (08/13/2012 11:57 AM HOT PRESS OPERATOR) SURGICAL PATHOLOGY ?[facility] ?[address] ? [place], [place] ??[address] ? Patient: ??AIMTA SIMPSON ? : ??1975 ? Procedure Date: ??08/13/2012 ? Accession Date: ??08/13/2012 ? Case No: ??[id number] ? Ordering Dr: ??LUCÍA DAILY ? Case type SW is performed by [facility], [address], ? [place], [place] ??[address]; all other case types are performed by [facility] ? [facility], [address], [place] ??[address] ?SURGICAL PATHOLOGY & NON-GYNECOLOGIC CYTOPATHOLOGY REPORT ? DIAGNOSIS ? EAR, LEFT CANAL, EXCISION: ? - GRANULATION TISSUE. ? - ACUTE AND CHRONIC INFLAMMATION. ? - POLARIZABLE FOREIGN MATERIAL. ? Specimen Description: ? Left ear canal lesion. ? Operative Procedure: ? Excision of lesion left ear. ? Patient Information/Histor y/Diagnosis: ? Lesion left ear. ? Gross: ? The specimen is received in a single container labeled Amita Ellis. ? [place], left ear canal lesion and consists of an irregularly-shaped piece ? of pink-red tissue that is 1.8 x 0.4 x 0.3 cm. The entire specimen is ? submitted in cassette A1. ? [facility] 08.13.2012 01:34 pm ? Microscopic: ? Received are slides labeled [id number], Amita Simpson. ? Sections of left ear canal identify sheets of edematous granulation ? tissue infiltrated by acute and chronic inflammatory cells. Occasional ? multinucleate giant cells are present and there is focal polarizable ? foreign material. The overlying epithelium consists of reactive appearing ? stratified squamous epithelium. There are scattered intraepithelial ? neutrophils. ? [facility] 08.16.2012 12:46 pm ? Staging Form: ? No ? ELECTRONIC SIGNATURE FOR SHAUNA BRENNAN M.D.- 08/16/12 03:50 pm [facility] Specimen of unknown material (specimen) 08/13/2012 11:57 AM HOT PRESS OPERATOR Lucía Daily MD PATHOLOGY/CYTOLOGY O RDERABLES [facility] CLIA# [id number] [address] [address] * POC , URINE (08/13/2012 10:15 AM HOT PRESS OPERATOR) , URINE POC Negative Negative [facility] CLIA LICENSE [id number] [facility] 08/13/2012 10:1 5 AM HOT PRESS OPERATOR 08/13/2012 10:15 AM HOT PRESS OPERATOR Comment:URINE Lucía Daily MD POINT OF CARE TESTIN G Performing Organization Address [facility]/ZIP Co de Phone Number [facility]# [id number] [address] [address] documented in this encounter Visit Diagnoses Not on filedocumented in this encounter Administered Medications Inactive Administered Medications - up to 3 most recent administrations Medication Order MAR Action Action Date Dose Rate Site lactated ringers solution IV, at 150 mL/hr, PRE-PROCEDURE CONTINUOUS, Starting on Thu08/13/12 at 1015, Until Thu08/13/12 at 1416, Routine, Pre-op Now New Bag 08/13/2012 10:15 AM HOT PRESS OPERATOR 150 mL/hr documented in this encounter Active and Recently Administered Medications Times are shown in HOT PRESS OPERATOR. Continuous Medication Order 08/11/2012 08/12/2012 08/13/2012 lactated ringers solution (CANCELED) IV, at 150 mL/hr, PRE-PROCEDURE CONTINUOUS, Starting on Thu08/13/12 at 1015, Until 1/25/13 at 1416, Routine, Pre-op Now 1015 (New Bag - Prov ider: Macho Vaughan RN)1214 (Stopped - Provider: Annie Guerra RN) documented in this encounter
--- OUTSIDE RECORDS SUMMARY | 2024-07-16 13:02 | XMS_ITS | Encounter Summary ---
Author Organization [facility] Address [address] [place] [address] Care Team Providers Care Graduate Student Name Role Phone Davi Georges MD Primary Care Provider [phone] Encounter Details Date Type Department Care Team (Late st Contact Info) Description 07/25/2008 Outpatient Historical [facility] Maggy Fung MD [address] [place] [id number] Social History Tobacco Use Types Packs/Day Years Used Date Smoking Tobacco: Never Assessed Sex and Gender Information Value Date Recorded Sex Assigned at Not on file Gender Identity Not on file Sexual Orientation Not on file documented as of this encounter Plan of Treatment Not on file documented as of this encounter Procedures Procedure Name Priority Date/Time Associated Diagnosis Comments AFB CULTURE WITH STAIN Routine 07/26/2008 7:55 PM LIBRARY CIRCULATION TECHNICIAN ANAEROBIC/AEROBIC CULTURE W GRAM STAIN Routine 07/26/2008 7:55 PM LIBRARY CIRCULATION TECHNICIAN FUNGUS STAIN Routine 07/26/2008 7:55 PM LIBRARY CIRCULATION TECHNICIAN FUNGUS CULTURE, OTHER Routine 07/26/2008 7:55 PM LIBRARY CIRCULATION TECHNICIAN HEMOGLOBIN AND HEMATOCRIT Stat 07/26/2008 6:35 PM LIBRARY CIRCULATION TECHNICIAN POC , URINE Routine 07/26/2008 6:15 PM LIBRARY CIRCULATION TECHNICIAN PATHOLOGY Routine 07/26/2008 5:00 PM LIBRARY CIRCULATION TECHNICIAN documented in this encounter Results * ANAEROBIC/AEROBIC CULTURE W GRAM STAIN (07/26/2008 7:55 PM LIBRARY CIRCULATION TECHNICIAN) FINAL REPORT Very light growth Pseudomonas aeruginosa [facility] GRAM STAIN No organisms seen Many WBC's seen [facility] SUSCEPTIBILITY PERFORMED ON PSEUDOMONAS AERUGINOSA [facility] Specimen from abscess (specimen) ENTIRE NECK / Unknown 07/26/2008 7:55 PM LIBRARY CIRCULATION TECHNICIAN 07/26/2008 8:15 PM LIBRARY CIRCULATION TECHNICIAN Narrative INTERFACE SYSTEM - 07/28/2008 7:26 AM LIBRARY CIRCULATION TECHNICIAN LT NECK Organism Antibiotic Method Susceptibility Pseudomonas aeruginosa PIPERACILLIN/ TAZOBACTAM SUMA MC G/ML <=8: Susceptible Pseudomonas aeruginosa CEFTAZIDIME SUMA MCG/ML <=8: Susceptible Pseudomonas aeruginosa AZTREONAM SUMA MCG/ML <=8: Susceptible Pseudomonas aeruginosa LEVOFLOXACIN SUMA MCG/ML <=1: Susceptible Pseudomonas aeruginosa GENTAMICIN SUMA MCG/ML <=0.5: Susceptible Maggy Fung MD MICROBIOLOGY - GENER AL ORDERABLES Performing Organization Address [facility] de Phone Number INTERFACE SYSTEM Refer to clinic/hospital department [facility] CLIA# [id number] [address] [place] [address] * FUNGUS STAIN (07/26/2008 7:55 PM LIBRARY CIRCULATION TECHNICIAN) FINAL REPORT Refer to culture for smear result. [facility] Specimen from abscess (specimen) ENTIRE NECK / Unknown 07/26/2008 7:55 PM LIBRARY CIRCULATION TECHNICIAN 07/26/2008 8:15 PM LIBRARY CIRCULATION TECHNICIAN Narrative INTERFACE SYSTEM - 07/26/2008 9:57 PM LIBRARY CIRCULATION TECHNICIAN LT NECK Maggy Fung MD MICROBIOLOGY - GENER AL ORDERABLES Performing Organization Address [facility] Co de Phone Number INTERFACE SYSTEM Refer to clinic/hospital department [facility] CLIA# [id number] [address] [place] [address] * AFB CULTURE WITH STAIN (07/26/2008 7:55 PM LIBRARY CIRCULATION TECHNICIAN) AFB STAIN No acid fast bacilli seen [facility] FINAL REPORT ? No acid fast bacilli isolated after 6 weeks. ? [facility] Specimen from abscess (specimen) ENTIRE NECK / Unknown 07/26/2008 7:55 PM LIBRARY CIRCULATION TECHNICIAN 07/26/2008 8:15 PM LIBRARY CIRCULATION TECHNICIAN Narrative INTERFACE SYSTEM - 09/11/2008 8:31 AM LIBRARY CIRCULATION TECHNICIAN LT NECK none none none Maggy Fung MD MICROBIOLOGY - GENER AL ORDERABLES Performing Organization Address [facility] Phone Number INTERFACE SYSTEM Refer to clinic/hospital department [facility] CLIA# [id number] [address] [place] [address] * FUNGUS CULTURE, OTHER (07/26/2008 7:55 PM LIBRARY CIRCULATION TECHNICIAN) FUNGUS STAIN No mycotic elements seen [facility] PRELIMINARY REPORT No fungus isolated after 3 days. Culture will be held for 4 weeks. [facility] FINAL REPORT No fungus isolated after 4 weeks. [facility] Specimen from abscess (specimen) ENTIRE NECK / Unknown 07/26/2008 7:55 PM LIBRARY CIRCULATION TECHNICIAN 07/26/2008 8:15 PM LIBRARY CIRCULATION TECHNICIAN Narrative INTERFACE SYSTEM - 08/22/2008 6:58 AM LIBRARY CIRCULATION TECHNICIAN LT NECK Maggy Fung MD MICROBIOLOGY - GENER AL ORDERABLES Performing Organization Address [facility] Phone Number INTERFACE SYSTEM Refer to clinic/hospital department [facility] CLIA# [id number] [address] [place] [address] * HEMOGLOBIN AND HEMATOCRIT (07/26/2008 6:35 PM LIBRARY CIRCULATION TECHNICIAN) HEMOGLOBIN 12.8 11.8 - 14.8 g/dL [facility] HEMATOCRIT 38.0 35.5 - 44.0 % [facility] Blood specimen (specimen) 07/26/2008 6:35 PM LIBRARY CIRCULATION TECHNICIAN 07/26/2008 6:43 PM LIBRARY CIRCULATION TECHNICIAN Maggy Fung MD HEMATOLOGY ORDERABLE S Performing Organization Address [facility] Phone Number INTERFACE SYSTEM Refer to clinic/hospital department [facility] CLIA# [id number] [address] [place] [address] * POC , URINE (07/26/2008 6:15 PM LIBRARY CIRCULATION TECHNICIAN) , URINE POC Negative Negative [facility] Urine specimen (specimen) 07/26/2008 6:15 PM LIBRARY CIRCULATION TECHNICIAN 07/26/2008 6:15 PM LIBRARY CIRCULATION TECHNICIAN Maggy Fung MD POINT OF CARE TESTIN G Performing Organization Address [facility] Phone Number INTERFACE SYSTEM Refer to clinic/hospital department [facility] CLIA# [id number] [address] [place] [address] * PATHOLOGY (07/26/2008 5:00 PM LIBRARY CIRCULATION TECHNICIAN) FINAL REPORT ?[facility] ?[address] ? . [place], [place] ??[address] ? Patient: ??CALVIN, AMITA F ? : ??1975 ? Procedure Date: ??07/26/2008 ? Accession Date: ??07/27/2008 ? Case No: ??[id number] ? Ordering Dr: ??MAGGY FUNG ? Case types AW, BW, FW, NW and SH are performed by [facility], [place], [place] ?SURGICAL PATHOLOGY & NON-GYNECOLOGIC CYTOPATHOLOGY REPORT ? DIAGNOSIS ? TOOTH AND SOFT TISSUE, #17, EXTRACTION: ? - REACTIVE CHANGES. ? Specimen Description: ? Tooth number 17. ? Operative Procedure: ? I and D left neck abscess, extraction tooth number 17. ? Patient Information/Histo ry/Diagnosis: ? Left neck abscess, impacted tooth number 17. ? Gross: ? Received in one container labeled Cora Avilaerine Jena, tooth number 17 ? is a 1.1 x 0.8 x 0.5-cm portion of tooth consistent with a molar. The root ? measures 1.2 cm in length. The tooth is disrupted and appears incomplete. ? There is a small amount of pink-griggs tissue attached to the tooth. It is ? submitted in block A1. Also received in the container is a 0.8 x 0.3 x 0.1- ? cm presumed portion of tooth. This does not appear to complete the ? disrupted area on the tooth. ? [facility]/SKW 07.27.2008 04:36 pm ? Microscopic: ? The slides are labeled Amita Avila and [id number]. ? The tissue attached to tooth #17 consists predominantly of collagenous ? fibrous tissue with a few scattered adipocytes. The fibrous tissue shows ? mild reactive changes, but there is no significant inflammation. There is ? no significant cytologic atypia. There are also a few detached small ? fragments of bone. ? JCL/TMZ 07.28.2008 02:56 pm ? Staging Form: ? No. ? ELECTRONIC SIGNATURE FOR EVA VALDEZ M.D.- 07/28/08 06:32 pm INTERFACE SYSTEM 07/26/2008 5:00 PM LIBRARY CIRCULATION TECHNICIAN Maggy Fung MD PATHOLOGY/CYTOLOGY O RDERABLES INTERFACE SYSTEM Refer to clinic/hospital department documented in this encounter Visit Diagnoses Not on filedocumented in this encounter Additional Health Concerns Infection Onset Date Last Indicated Resolved Time COVID-19 08/17/2021 08/17/2021 09/16/2021 1:16 AM LIBRARY CIRCULATION TECHNICIAN documented as of this encounter Care Teams Graduate Student Relationship Specialty Start Date End Date Davi Georges MD [address] [place], [place] [address] [address] PCP - General Family Practice 08/14/21 documented as of this encounter
--- OUTSIDE RECORDS SUMMARY | 2024-07-16 13:02 | XMS_ITS | Encounter Summary ---
Author Organization [facility] Address [address] [place] [address] Care Team Providers Care Division Commander Name Role Phone Unavailable Primary Care Provider Unavailabl e Encounter Details Date Type Department Care Team (Latest Contact Info) Description 05/17/2008 Orders Only HIS CONVERSION Conversion, History Social History Tobacco Use Types Packs/Day Years Used Date Smoking Tobacco: Never Assessed Sex and Gender Information Value Date Recorded Sex Assigned at Not on file Gender Identity Not on file Sexual Orientation Not on file documented as of this encounter Progress Notes * Conversion, History - 12/22/2008 7:[address] [place] [place], [place] [address] cc: Dylon Fung DDS, MD This is a re-dictation due to an apparent loss of the original dictation. SURGEON Dylon Fung DDS, MD PREOPERATIVE DIAGNOSIS Severe left temporomandibular joint disease. POSTOPERATIVE DIAGNOSES Left temporomandibular joint ankylosis. OPERATION NAME 1. Left temporomandibular joint total joint replacement with prosthetic prosthesis. 2. Left mandibular coronoidectomy. 3. Mobilization. 4. Left temporomandibular joint steroid injection. 5. Left auriculotemporal branch trigeminal nerve block. 6. Abdominal fat graft harvest. ANESTHESIA General anesthesia via nasal endotracheal tube. ESTIMATED BLOOD LOSS 1000 mL. FLUID REPLACEMENT 4500 mL crystalloid, 1000 mL Hespan. URINE OUTPUT 500 mL. DRAINS None. SPECIMEN 1. Left mandible condyle. 2. Left mandible coronoid process. IMPLANTS A left [employer] total joint replacement prosthesis including fossa and condylar segments. Fossa secured in place with multiple 2.3 titanium bone screws and the condylar segment secured in place with multiple 2.7 titanium bone screws. COMPLICATIONS Please note, this was an extremely difficult case given the degree of ankylosis and severity which was unanticipated by clinical and previous radiographic studies, as well as the significant scarring or hypertrophic scarring from previous procedures, as well as patient with very labile blood pressure and difficulty maintaining hemostasis and stable blood pressure. COUNT Correct x2. INDICATIONS This is a 33-year-old female known to ma for chronic management of her temporomandibular disorder. This patient has chronic temporomandibular disorder which developed and has exacerbated following an attack by a dog. The patient has undergone multiple therapies and even previous arthroplasty procedure and recently developed significantly decreasing range of motion with increasing pain after being essentially stable for a fairly long period of time. The patient as evaluated by history, clinical, and radiographic examination, including CAT scan revealing severe degenerative joint disease and a possible developing ankylosis. The risks, benefits, and alternatives of management were reviewed at length with the patient, with the patient electing to proceed with the above procedure. FINDINGS The patient was taken to the operating room, placed in the supine position on the table, and general anesthesia was induced via nasal endotracheal tube. The patient was then prepped and draped in the standard fashion for facial surgical and abdominal surgical procedures. Attention was first drawn to the left face which, with standard preauricular incision, injected with local anesthetic, followed by incision through skin and subcutaneous tissue. The superior aspect of the incision was then approached with a fine mosquito hemostat with blunt dissection down to and exposing the temperoparietal fascia. Once this was identified, a [place] elevator was utilized to further undermine this and expose this layer. Attention was then drawn inferiorly to the area of the tragus of the ear. The fine mosquito hemostat was then utilized to dissect in the subperichondrial fashion down to the posterolateral aspect of the joint in the area of the parotideomasseteric fascia. The superior and inferior dissections were then joined at with a combination of sharp and blunt dissection. Please note that throughout all dissections a nerve stimulator was utilized to confirm lack of presence of the seventh cranial nerve. Also of note is that throughout the dissection, very judicious use of bipolar electrocautery was utilized for hemostatic purposes. However, hemorrhage and oozing were a significant complication throughout the procedure from throughout the wound and dissection, in part at least created by labile blood pressure. Once this dissection was carried down, identifying the postglenoid tubercle, then a vertical incision was made through the periosteum, followed by elevation of subperiosteal flap anteriorly, exposing the entire articular eminence. At this point, the condyle was noted to be fused to the cranial base with the fibroosseous ankylosis noted. At this point, further dissection anteriorly on the subperiosteal and lateral aspect of the ankylosed region anteriorly and inferiorly, I exposed the coronoid process which was also noted to be hypertrophic with a somewhat rigid ligament noted. At this point, this wound was packed with warn normal saline- soaked gauze, and attention was then drawn to the mandible area, where a standard incision approximately 5 cm in length was made through the skin and subcutaneous tissue, followed by a layered dissection down to and exposing the inferior border of the mandible, as with the previous dissection, with nerve stimulator to identify the seventh cranial nerve marginal mandibular branches and very judicious use of a bipolar electrocautery. Once the inferior border was identified, an incision was made through it, followed by elevation of a subperiosteal flap to expose the entire limits of the mandible, adjoining the superior dissection. Next, a gap type arthroplasty was performed, loosening up the condylar segment from the cranial base. A condylectomy was then performed with a rotary instrument, removing just beneath the coronoid notch of the mandible, extending anteriorly and removing the coronoid process as well. The temporalis tendon was removed from the coronoid process with a combination of sharp and blunt dissection as well as electrocautery. Once the condylectomy and coronoidectomy were completed, the mandible was mobilized and noted to have significant range of motion with maximal size opening to about 50 mm. At this point, the facial wounds were protected, the head was turned, and the patient had eight Allen Xu 2.0 intermaxillary fixation screws placed between the canine and premolar and first premolar and second premolar, respectively. Once completed, the patient was placed into intermaxillary fixation with 24-gauge stainless steel wire. The intermaxillary fixation group was then re-gowned and gloved to proceed with total joint replacement. The prosthesis was sized, with the small size noted to be the best fit, and the Allen Xu bone bur was then utilized to level the fossa and articular eminence for best fit of the fossa prosthesis. Once adequately stabilized, the fossa prosthesis was secured to the lateral aspect of the glenoid process with multiple Allen Xu 2.3 screws. The condylar prosthesis was then fully seated, with the lateral aspect of the ramus portion placed along the posterior margin, and was then secured after leveling the lateral cortex with the bone bur with multiple 2.7 titanium bone screws in a bicortical fashion. Once this was completed, attention was drawn to the abdomen, where a small incision was made in the right lower quadrant in a horizontal fashion approximately 3 cm in length through skin and subcutaneous tissue. Some subdermal fat was then removed from the abdomen, with this wound then cauterized and closed in a layered fashion with 2-0 Vicryl for deep wound closure and a 3-0 Prolene for cutaneous wound closure. This wound was then dressed with antibiotic ointment, Telfa, and an overlying tape dressing. This fat was then transferred and placed in and around the temporomandibular joint prosthesis after copious wound irrigation. All fascial wounds were then evaluated for adequate hemostasis. A temporomandibular joint capsule was reapproximated as best possible, followed by injection of a 1:1:1 mixture of 1 mL of Duramorph 1 mg/mL, 0.5% Marcaine with 1:200,000 epinephrine, and Kenalog 40 mg/mL, with 3 mL injected into and around the total joint prosthesis. The remainder of the wounds were then closed with 4-0 Vicryl for deep wound closure and a 5-0 blue Prolene for cutaneous wound closure. At the completion of the wound closure, a mouth prop was utilized for mandibular mobilization, with the mandible mobilized to a maximum incisal opening past release of intermaxillary fixation of 48 mm. The patient was held in this position for approximately 10 minutes prior to emergence from general anesthesia. In the interim, the facial and neck wounds were dressed with antibiotic ointment with an overlying Telfa dressing, and the patient was placed into a head wrap pressure dressing. At this point, the patient was turned back over to the anesthesia team for emergence from general anesthesia. DISPOSITION The patient had an unremarkable emergence from general anesthesia, was extubated on the table and transferred to the postanesthesia care unit in stable condition. PRM:MEDQ Dictated by: Dylon Fung DDS, MD Dylon Fung DDS, MD Result Type: OPERATIVE REPORT Result Date: May 18, 2008 01:36 PM Result Status: UNREVIEWED * Conversion, History - 12/22/2008 7:[address] [place], [place] [address] cc: Dylon Fung DDS, MD SURGEON Dylon Fung DDS, MD. PREOPERATIVE DIAGNOSIS Left temporomandibular joint disorder. POSTOPERATIVE DIAGNOSIS Left temporomandibular joint disorder. OPERATION NAME Mobilization and hardware-IMF screw removal. ANESTHESIA Monitored anesthesia via IV sedation. ESTIMATED BLOOD LOSS None. DRAINS None. SPECIMENS None. IMPLANTS None. COMPLICATIONS None. COUNTS Correct times 2. INDICATIONS This is a 33-year-old female with severe temporomandibular joint disorder on the left side, status post total joint replacement. The patient had retained hardware of intermaxillary fixation screws which were usable as four guiding elastics. The patient also had a poor range of motion postoperatively with patient's poor compliance or inability to perform adequately mouth opening physical therapy. The risks, benefits, and alternatives of management were reviewed and outlined with the patient with the patient electing to proceed with the above procedure. FINDINGS The patient was taken to the operating room, placed on the table and deep sedation was administered with appropriate anesthesia monitoring. Once deeply sedated, a mouth crank was utilized and placed with difficulty. Initially, the patient opened up to approximately 25 mm. Gradual cranking of the mouth prop on posterior teeth only finally achieved maximum sized opening approximately 48 mm and was maintained for approximately 12 minutes under deep sedation. While under deep sedation at the same time, a mouth pack, throat pack protective dressing was placed and two intermaxillary fixation screws were removed from each quadrant with a total of 8 screws. At the completion of the 12 minute period, mobilization of 48 mm, the patient was then turned back over to the Anesthesia team for appropriate emergence from deep sedation and monitoring. DISPOSITION The patient had an unremarkable emergence and was transferred to the ASU unit in stable condition. PRM:MEDQ Dictated by: Dylon Fung DDS, MD Dylon Fung DDS, MD Result Type: OPERATIVE REPORT Result Date: May 17, 2008 05:18 PM Result Status: UNREVIEWED documented in this encounter Plan of Treatment Not on file documented as of this encounter Visit Diagnoses Not on filedocumented in this encounter
--- OUTSIDE RECORDS SUMMARY | 2024-07-16 13:02 | XMS_ITS | Encounter Summary ---
Author Organization [facility] Address [address] [place] [address] Care Team Providers Care Landscape Architecture Teacher Name Role Phone Daiv Georges MD Primary Care Provider [phone] Encounter Details Date Type Department Care Team (Late st Contact Info) Description 03/26/2004 Outpatient Historical [facility] DEPT Dylon Fung MD [address] [place] [id number] TMJ DISORD ARTHRALGIA (Primary Dx) Social History Tobacco Use Types Packs/Day Years Used Date Smoking Tobacco: Never Assessed Sex and Gender Information Value Date Recorded Sex Assigned at Not on file Gender Identity Not on file Sexual Orientation Not on file documented as of this encounter Plan of Treatment Not on file documented as of this encounter Visit Diagnoses Diagnosis Arthralgia of temporomandibular joint- Primary documented in this encounter Additional Health Concerns Infection Onset Date Last Indicated Resolved Time COVID-19 08/17/2021 08/17/2021 09/16/2021 1:16 AM SENIOR ELECTRICAL CONTROLS ENGINEER documented as of this encounter Care Teams Landscape Architecture Teacher Relationship Specialty Start Date End Date Davi Georges MD [address] [place] [id number] PCP - General Family Practice 08/14/21 documented as of this encounter
--- OUTSIDE RECORDS SUMMARY | 2024-07-16 13:02 | XMS_ITS | Encounter Summary ---
Author Organization [facility] Address [address] [place] [address] Care Team Providers Care Auto Transport Driver Name Role Phone Davi Georges MD Primary Care Provider [phone] Encounter Details Date Type Department Care Team (Late st Contact Info) Description 11/03/2008 Outpatient Historical [facility] [place] [address] [address] Cervicalgia Social History Tobacco Use Types Packs/Day Years Used Date Smoking Tobacco: Never Assessed Sex and Gender Information Value Date Recorded Sex Assigned at Not on file Gender Identity Not on file Sexual Orientation Not on file documented as of this encounter Plan of Treatment Not on file documented as of this encounter Procedures Procedure Name Priority Date/Time Associated Diagnosis Comments PATHOLOGY Routine 11/07/2008 12:25 PM CDT CBC WITH DIFFERENTIAL Stat 11/07/2008 9:05 AM CDT POC , URINE Routine 11/07/2008 9:05 AM CDT documented in this encounter Results * PATHOLOGY (11/07/2008 12:25 PM CDT) FINAL REPORT ?[facility] ?[address] ? [place], [place] ??[id number] ? Patient: ??AMITA SIMPSON ? : ??1975 ? Procedure Date: ??11/07/2008 ? Accession Date: ??11/07/2008 ? Case No: ??[id number] ? Ordering Dr: ??CHELSY ALLEN ? Case types AW, BW, FW, NW and SH are performed by [facility] ? [facility], [place], [place] ?SURGICAL PATHOLOGY & NON-GYNECOLOGIC CYTOPATHOLOGY REPORT ? DIAGNOSIS ? PERIPHERAL NERVE, TRANSVERSE CERVICAL SENSORY BRANCH, EXCISION: ? - NO PATHOLOGIC DIAGNOSIS. ? PERIPHERAL NERVE, GREAT AURICULAR, LEFT, EXCISION: ? - NO PATHOLOGIC DIAGNOSIS. ? Specimen Description: ? (1) Transverse cervical nerve; (2) great auricular nerve. ? Operative Procedure: ? Resection neuroma left great auricular nerve, transverse cervical branch, ? and transposition. ? Patient Information/Histo ry/Diagnosis: ? 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 ? Gross: ? Received are two containers labeled ??Amita Simpson. Received in the ? first container, additionally labeled ??transverse cervical nerve, are four ? white tissue cores measuring 0.5 cm, 2.2 cm, 1.7 cm, and 2.4 cm. All are ? submitted in block A1. ? Received in the second container labeled ??greater auricular nerve is a 2.0 ? cm long x 0.1 cm in diameter piece of white tissue. It is submitted in ? block B1. ? [facility] 11.08.2008 07:26 am ? Microscopic: ? The slides are labeled [id number], Amita Simpson. ? The samples submitted as ??transverse cervical nerve and ??greater auricular ? nerve both contain unremarkable-appe aring peripheral nerves composed of ? multiple nerve fascicles. There is no evidence of neuroma formation in the ? samples provided. ? [facility] 11.08.2008 01:34 pm ? Staging Form: ? No. ? ELECTRONIC SIGNATURE FOR INES FRITZ M.D.- 11/08/08 05:03 pm INTERFACE SYSTEM 11/07/2008 12:2 5 PM CDT Chelsy Allen MD PATHOLOGY/CYTOLOGY O RDERABLES Performing Organization Address City/[facility] Co de Phone Number INTERFACE SYSTEM Refer to clinic/hospital department * POC , URINE (11/07/2008 9:05 AM CDT) , URINE POC Negative Negative [facility] Urine specimen (specimen) 11/07/2008 9:05 AM CDT 11/07/2008 9:05 AM CDT Chelsy Allen MD POINT OF CARE TESTIN G Performing Organization Address [facility]/ZIP Co de Phone Number INTERFACE SYSTEM Refer to clinic/hospital department [facility] CLIA# [id number] [address] [facility] [place] [address] * CBC WITH DIFFERENTIAL (11/07/2008 9:05 AM CDT) RBC 4.21 3.90 - 4.90 M/uL [facility] MCHC 33.7 31.5 - 35.5 % [facility] MCV 93.8 82.0 - 99.0 fL [facility] HEMOGLOBIN 13.3 11.8 - 14.8 g/dL [facility] RDW 13.3 11.5 - 14.5 % [facility] WBC 5.1 4.0 - 9.8 K/uL [facility] MCH 31.6 27.2 - 32.6 pg [facility] HEMATOCRIT 39.5 35.5 - 44.0 % [facility] RDW-STDEV 45.4 37.1 - 48.7 fL [facility] EOSINOPHIL ABSOLUTE 0.09 0.00 - 0.70 K/uL [facility] LYMPHOCYTES 27 16 - 45 % [facility] LYMPHOCYTE ABSOLUTE 1.37 0.70 - 4.50 K/uL [facility] BASOPHILS ABSOLUTE 0.01 0.00 - 0.20 K/uL [facility] BASOPHILS 0 0 - 2 % [facility] MONOCYTES 8 3 - 13 % [facility] MONOCYTE ABSOLUTE 0.38 0.10 - 1.30 K/uL [facility] NEUTROPHILS 63 45 - 70 % [facility] NEUTROPHIL ABSOLUTE 3.21 1.90 - 7.00 K/uL [facility] EOSINOPHILS 2 0 - 7 % [facility] PLATELETS Parameter N/A 140 - 350 [facility] Comment: Parameter not available due to platelet clumping. Results called to Tiara in OR at 11/07/08 10:04 and read back verified. 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
--- OUTSIDE RECORDS SUMMARY | 2024-07-16 13:02 | XMS_ITS | Encounter Summary ---
Author Organization [facility] Address [address] [place] [address] Care Team Providers Care Wrapper Hands Sprayer Name Role Phone Emmanuel Rodríguez MD Primary Care Provider Unavailabl e Reason for Visit * Reason Comments Abscess pt here from Dr. Sheng abel office, pt c/o left ear pain and has titanium left jaw replacement and was told today has inner ear abscess and sent here for labs and CT. * Auth/Cert - Closed Specialty Diagnoses / Procedures Referred By Suman t Referred To Contact Emergency Medicine [facility] Emergency Dept [address] [place] [address] Referral ID Status Reason Start Date Expiration Date Visits Re quested Visits Authorized [id number] Closed 1 1 Encounter Details Date Type Department Care Team (Late st Contact Info) Description 07/23/2012 3:35 PM PROFESSIONAL ORGANIZER - 07/23/2012 6:20 PM PROFESSIONAL ORGANIZER Emergency [facility] Emergency Department [address] [place] [address] Yoon Ramirez MD NO ADDRESS ON FILE Abscess Discharge Disposition: Home or Self Care Social History Tobacco Use Types Packs/Day Years Used Date Smoking Tobacco: Some Days Cigarettes Alcohol Use Standard Drinks/Week Comments No 0 (1 standard drink = 0.6 oz pur e alcohol) Sex and Gender Information Value Date Recorded Sex Assigned at Not on file Gender Identity Not on file Sexual Orientation Not on file documented as of this encounter Last Filed Vital Signs Vital Sign Reading Time Taken Comments Blood Pressure 138/72 07/23/2012 5:16 PM PROFESSIONAL ORGANIZER Pulse 88 07/23/2012 4:20 PM PROFESSIONAL ORGANIZER Temperature 37.3 ??C (99.2 ??F) 07/23/2012 2:20 PM CS T Respiratory Rate 18 07/23/2012 5:16 PM PROFESSIONAL ORGANIZER Oxygen Saturation 96% 07/23/2012 2:20 PM PROFESSIONAL ORGANIZER Inhaled Oxygen Concentration - - Weight 90.3 kg (199 lb) 07/23/2012 2:20 PM PROFESSIONAL ORGANIZER Height 163.2 cm (5' 4.25 ) 07/23/2012 2:20 PM CS T Body Mass Index 33.89 07/23/2012 2:20 PM PROFESSIONAL ORGANIZER documented in this encounter Discharge Instructions * Discharge Instructions* Yoon Ramirez MD - 07/23/2012 6:11 PM PROFESSIONAL ORGANIZER Stop the clindamycin and start the other Antibiotics as prescribed Watch for fever / increased pain. ESSIONAL ORGANIZER documented in this encounter Medications at Time of Discharge Medication Sig Dispensed Refills Start Date End Date gabapentin (NEURONTIN) 600 mg Oral tablet Take 1,200 mg by mouth 3 times daily. buPROPion SR 12 hour (WELLBUTRIN-SR) 150 mg Oral tablet Take 150 mg by mouth 2 times daily. amoxicillin-clavulanate (AUGMENTIN) 875-125 mg Oral tablet Take 1 Tab by mouth every 12 hours for 7 days. 14 Tab 0 07/23/2012 07/30/2012 metroNIDAZOLE (FLAGYL) 500 mg Oral tablet Take 1 Tab by mouth 3 times daily for 7 days. 15 Tab None 07/23/2012 07/30/2012 cefUROXime axetil (CEFTIN) 500 mg Oral tablet [...] needed. 05/25/2015 documented as of this encounter Progress Notes * Radha Sevilla RN - 07/25/2012 12:59 PM CSTQuick Note: Wound culture result reviewed with Dr. Soto. No additional tx required. Result routed to Dr. Fung ESSIONAL ORGANIZER documented in this encounter ED Notes * Perla Medley RN - 07/23/2012 6:19 PM CST Patient discharged to home viaambulatory with steady gait with self. Patient states feeling better.Discharge information and education provided to patient. Questions answered, understanding of discharge instruction verbalized. Printed copy given. ESSIONAL ORGANIZER * Perla Medley RN - 07/23/2012 5:10 PM CST Pt to CT via cart. ESSIONAL ORGANIZER * Perla Medley RN - 07/23/2012 4:09 PM CST Pt presents to ED with complaints of recurrent abscess to jaw. Pt states this is an on-going problem for her. Primary MD requested she present for labs and imaging. Labs obtained, pt resting on side of stretcher with at bedside. Call light in reach, will continue to monitor. ESSIONAL ORGANIZER * Yoon Ramirez MD - 07/23/2012 4:06 PM CST HISTORY OF PRESENT ILLNESS Kayla Avila is a 37 y.o. female with a history of CAD, anxiety, arthritis and reconstructive jaw surgery with titanium left jaw, who presents to the Emergency Department complaining of left inner ear abscess onset today. Patient reports that she has had the abscess for the past 2 months, but it resolved 1 week ago, but returned today. The patient has been taking Clindamycin for 1 week without relief. The patient was seen and evaluated at Dr. Fung' office who sent the patient to the EDfor CT and labs. Physician(s): Emmanuel Rodríguez MD (PCP) HPI REVIEW OF SYSTEMS Review of Systems Constitutional: Negative for fever, chills, activity change and appetite change. HENT: Negative for ear pain, nosebleeds, congestion, sore throat, trouble swallowing, neck pain anddental problem. Abscess to left inner ear Eyes: Negative for visual disturbance. Respiratory: Negative for cough, chest tightness and shortness of breath. Cardiovascular: Negative for chest pain, palpitations and leg swelling. Gastrointestinal: Negative for nausea, vomiting, abdominal pain, diarrhea, constipation and abdominal distention. Genitourinary: Negative for vaginal bleeding, vaginal discharge, difficulty urinating, menstrual problem and pelvic pain. Musculoskeletal: Negative for myalgias and joint swelling. Skin: Negative for rash. Neurological: Negative for dizziness, syncope, light-headedness and headaches. Hematological: Does not bruise/bleed easily. Psychiatric/Behavioral: Negative for suicidal ideas, hallucinations and self- injury. The patient isnot nervous/anxious. PAST MEDICAL HISTORY REVIEWED Past Medical History Diagnosis Date ??? CAD (coronary artery disease) December 2012 [place] ??? Anxiety ??? Arthritis left jaw ??? Depression ??? Headache Migraines related to left jaw Past Surgical History Procedure Date ??? Pr reconstr jaw,full,endo implnt from 2000 to 2008 total of [address] Dylon Fung No family history on file. Social History Other Topics Concern ??? Not on file History Social History Main Topics ??? Smoking status: Current Some Day Smoker Types: Cigarettes ??? Smokeless tobacco: Not on file ??? Alcohol Use: No ??? Drug Use: ??? Sexually Active: There are no active problems to display for this patient. ALLERGIES Erythromycin HOME MEDICATIONS Patient's Home Medications New Prescriptions for this Encounter AMOXICILLIN-CLAVULANATE (AUGMENTIN) 875-125 MG ORAL TABLET Take 1 Tab by mouth every 12 hours for 7days. METRONIDAZOLE (FLAGYL) 500 MG ORAL TABLET Take 1 Tab by mouth 3 times daily for 7 days. Current Home Medications AMITRIPTYLINE (ELAVIL) 10 MG ORAL TABLET Take 10 mg by mouth daily at bedtime. Takes six tablets every every evening for sleep AMOXICILLIN (AMOXIL) 875 MG ORAL TABLET Take 875 mg by mouth every 12 hours. BUPROPION SR 12 HOUR (WELLBUTRIN-SR) 150 MG ORAL TABLET Take 150 mg by mouth 2 times daily. CEFUROXIME AXETIL (CEFTIN) 500 MG ORAL TABLET Take 500 mg by mouth every 12 hours. GABAPENTIN (NEURONTIN) 600 MG ORAL TABLET Take 1,200 mg by mouth 3 times daily. HYDROCODONE-ACETAMINOPHEN (NORCO) 7.5-325 MG ORAL TAB Take 2 Tabs by mouth every 4 hours as needed. MECLIZINE (ANTIVERT) 12.5 MG ORAL TABLET Take 25 mg by mouth every 6 hours. PIROXICAM (FELDENE) 20 MG ORAL CAPSULE Take 20 mg by mouth daily. Medications Modified during this Encounter Medications Discontinued during this Encounter PHYSICAL EXAM Initial Vitals BP 07/23/12 1420 113/84 mmHg Pulse 07/23/12 1420 104 Resp 07/23/12 1420 20 Temp 07/23/12 1420 99.2 ??F (37.3 ??C) Temp src 07/23/12 1420 Oral SpO2 07/23/12 1420 96 % Physical Exam Constitutional: She is oriented to person, place, and time. She appears well- developed and well-nourished. No distress. HENT: Head: Normocephalic and atraumatic. Mouth/Throat: Oropharynx is clear and moist. Left ear: she has 1 cm area of swelling just into the ear canal with some slight purulent drainage,mild erythema and swelling to the preauricular space. Eyes: EOM are normal. Pupils are equal, round, and reactive to light. Neck: Normal range of motion. Neck supple. No thyromegaly present. Cardiovascular: Normal rate, regular rhythm, normal heart sounds and intact distal pulses. No murmur heard. Pulmonary/Chest: Effort normal and breath sounds normal. No respiratory distress. She has no wheezes. She has no rales. Abdominal: Soft. Bowel sounds are normal. She exhibits no distension. There is no tenderness. Musculoskeletal: Normal range of motion. She exhibits no edema and no tenderness. Lymphadenopathy: She has no cervical adenopathy. Neurological: She is alert and oriented to person, place, and time. No cranial nerve deficit. Coordination normal. Skin: Skin is warm and dry. No rash noted. There is erythema. Psychiatric: She has a normal mood and affect. Her behavior is normal. DIAGNOSTICS LAB: Results for orders placed during the hospital encounter of 07/23/12 (from the past 24 hour(s)) CBC WITH DIFFERENTIAL Component Value Range WBC 7.0 4.0 - 9.8 K/uL RBC 4.33 3.90 - 4.90 M/uL HEMOGLOBIN 14.1 11.8 - 14.8 g/dL HEMATOCRIT 42.0 35.5 - 44.0 % MCV 97.0 82.0 - 99.0 fL MCH 32.6 27.2 - 32.6 pg MCHC 33.6 31.5 - 35.5 % PLATELETS 224 140 - 350 K/uL MPV 11.0 9.3 - 12.4 fL RDW 13.5 11.5 - 14.5 % RDW-STDEV 47.8 37.1 - 48.7 fL NEUTROPHILS 59 45 - 70 % LYMPHOCYTES 30 16 - 45 % MONOCYTES 8 3 - 13 % EOSINOPHILS 2 0 - 7 % BASOPHILS 0 0 - 2 % NEUTROPHIL ABSOLUTE 4.12 1.90 - 7.00 K/uL LYMPHOCYTE ABSOLUTE 2.07 0.70 - 4.50 K/uL MONOCYTE ABSOLUTE 0.58 0.10 - 1.30 K/uL EOSINOPHIL ABSOLUTE 0.17 0.00 - 0.70 K/uL BASOPHILS ABSOLUTE 0.02 0.00 - 0.20 K/uL COMPREHENSIVE METABOLIC PANEL Component Value Range SODIUM 139 135 - 145 mmol/L POTASSIUM 4.1 3.5 - 4.9 mmol/L CHLORIDE 106 96 - 108 mmol/L CO2 23 22 - 30 mmol/L CALCIUM 9.1 8.6 - 10.2 mg/dL BUN 12 6 - 20 mg/dL CREATININE 0.75 0.51 - 0.95 mg/dL GLUCOSE 86 65 - 99 mg/dL TOTAL PROTEIN 7.6 6.3 - 8.6 g/dL ALBUMIN 4.4 3.4 - 4.8 g/dL BILIRUBIN TOTAL 0.4 0.2 - 1.0 mg/dL ALKALINE PHOSPHATASE 85 35 - 104 U/L AST 21 12 - 32 U/L ALT 19 0 - 31 U/L GFR, >60 >=60 mL/min/1.7 sq meter GFR >60 >=60 mL/min/1.7 sq meter C-REACTIVE PROTEIN Component Value Range CRP 0.1 0.0 - 0.8 mg/dL RADIOLOGY: CT IAC W CONTRAST (Results Pending) EKG: PROCEDURES Procedures REEVALUATION MEDICAL DECISION MAKING AND PLAN OF CARE . New Prescriptions for this Encounter AMOXICILLIN-CLAVULANATE (AUGMENTIN) 875-125 MG ORAL TABLET Take 1 Tab by mouth every 12 hours for 7days. METRONIDAZOLE (FLAGYL) 500 MG ORAL TABLET Take 1 Tab by mouth 3 times daily for 7 days. Last vitals BP 138/72 Pulse 88 Temp(Src) 99.2 ??F (37.3 ??C) (Oral) Resp 18 Ht 5' 4.25 (1.632 m) Wt 90.266 kg BMI 33.89 kg/m2 SpO2 96% LMP 07/02/2012 MDM Coding Reviewed: nursing note and vitals Interpretation: SP02 here with swelling / mass to inside of ear canal Has titanium implant in place - sent in for scan /labs per [facility] Labs ok and CT unchanged from previous Scan Discussed with Dr Fung - will change antibiotics - to see him on Thursday Medications Administered During the ED Stay from 07/23/2012 1346 to 07/23/2012 2018 Date/Time Order Dose Route Action 07/23/2012 1728 ioversol (OPTIRAY 320) 320 mg iodine/mL syringe 125 mL 125 mL IV Given CLINICAL IMPRESSION Encounter Diagnoses Code Name Primary? 682.9 Abscess Comment: superficial ear canal CASE DISCUSSED PATIENT COUNSELING Diagnostics reviewed and questions answered. Diagnosis, treatment options and plan of care discussed with understanding verbalized. DISPOSITION, EDUCATION AND MEDICATION RECONCILIATION Medications reconciled. See after visit summary for patient education on discharged patients. This note has been prepared by Kayla Handley acting as a scribe for Dr. Yoon Ramirez. The scribe's documentation has been prepared under my direction and personally reviewed by me in its entirety. I confirm that the note above accurately reflects all work, treatment, procedures, and medical decision making performed by me. ESSIONAL ORGANIZER documented in this encounter Miscellaneous Notes * Patient Instructions - Scanning, Stl - 07/24/2012 12:03 PM CST ESSIONAL ORGANIZER documented in this encounter Plan of Treatment Not on file documented as of this encounter Procedures Procedure Name Priority Date/Time Associated Diagnosis Comments WOUND CULTURE WITH GRAM STAIN Stat 07/23/2012 6:[address] IAC W CONTRAST Stat 07/23/2012 5:2 7 PM PROFESSIONAL ORGANIZER CBC WITH DIFFERENTIAL Stat 07/23/2012 4:10 PM PROFESSIONAL ORGANIZER C-REACTIVE PROTEIN Stat 07/23/2012 4: 10 PM PROFESSIONAL ORGANIZER COMPREHENSIVE METABOLIC PANEL Stat 07/23/2012 4:10 PM PROFESSIONAL ORGANIZER documented in this encounter Results * (ABNORMAL) WOUND CULTURE WITH GRAM STAIN (07/23/2012 6:15 PM PROFESSIONAL ORGANIZER) FINAL MICRO REPORT Moderate growth presumptive Neyda albicans(A) [facility] GRAM STAIN No organisms seen No WBC's seen.(A) [facility] Drainage fluid specimen (specimen) (Ear, left) 07/23/2012 6:15 PM PROFESSIONAL ORGANIZER 07/23/2012 8:04 PM PROFESSIONAL ORGANIZER Comment:DRAINAGE/ EAR LEFT Yoon Ramirez MD MICROBIOLOGY - GENER AL ORDERABLES [facility]# [id number] [address] [facility] [place] [address] * CT IAC W CONTRAST (07/23/2012 5:27 PM PROFESSIONAL ORGANIZER) Anatomical Region Laterality Modality Head Computed Tomogra phy 07/23/2012 5:04 PM PROFESSIONAL ORGANIZER Impressions 07/26/2012 5:44 PM PROFESSIONAL ORGANIZER IMPRESSION: 1. Status post left mandibular condyle replacement with a prosthesis extending to a fluid collection that may be part of the prosthesis at the left temporomandibular joint. Hardware is noted along the zygoma at the temporomandibular joint. This appearance is stable since the prior study. 2. No rim-enhancing fluid collection identified to suggest abscess. 3. Mild thickening of the skin at the external auditory canal compared to the prior study. No abscess is seen. These results are discussed with Dr. Ramirez at the time of dictation. Narrative 07/26/2012 5:44 PM PROFESSIONAL ORGANIZER EXAM: ??CT IAC WITH IV CONTRAST DATE: ??Jul 23, 2012 05:04:00 PM HISTORY: ??Left TMJ replacement with left ear pain. TECHNIQUE: ??Multislice CT images through the temporal bones after intravenous administration of 125 cc Optiray-320. COMPARISON: ??07/16/2012. FINDINGS: ??A metallic replacement of the left mandibular condyle is noted. This mandibular condyle prosthesis extends up to a shallow temporomandibular joint. A pocket of fluid is noted around the prosthetic mandibular condyle. The appearance of this fluid collection is stable since the prior study. This may be part of the prosthesis. No rim enhancement is seen. Hardware is noted extending into the left zygomatic arch just above the temporomandibular joint. The hardware appears well seated. There is mild mucosal thickening of the external auditory canal. This mucosal thickening is somewhat more pronounced than on the prior study. No rim-enhancing collection is identified to suggest abscess. The left mastoid air cells and left middle ear cavity are well aerated. The inner ear structures including the internal auditory canal, cochlea, vestibule and semicircular canals are normal. The vestibular aqueduct is normal in size. The facial nerve is normal along its course. The mineralization of the inner ear bone is normal. The vascular structures are normal in position and appearance. Right temporal bone: The internal auditory canal, vestibule and semicircular canals, vestibular aqueduct and cochlea are normal in appearance. The mineralization of the inner ear bone is normal. The round window niche and oval window are normal in appearance. The facial nerve canal is normal along its course. ??The ossicles are normal in configuration. The scutum is sharp. No fluid or soft tissue seen with the middle ear cavity. The mastoid air cells are normally developed and well-aerated. The external auditory canal is normal and the tympanic membrane is thin. ??The vascular structures are normal in position and configuration. Procedure Note Aminata Huynh MD - 07/26/2012 EXAM: CT IAC WITH IV CONTRAST DATE: Jul 23, 2012 05:04:00 PM HISTORY: Left TMJ replacement with left ear pain. TECHNIQUE: Multislice CT images through the temporal bones after intravenous administration of 125 cc Optiray-320. COMPARISON: 07/16/2012. FINDINGS: A metallic replacement of the left mandibular condyle is noted. This mandibular condyle prosthesis extends up to a shallow temporomandibular joint. A pocket of fluid is noted around the prosthetic mandibular condyle. The appearance of this fluid collection is stable since the prior study. This may be part of the prosthesis. No rim enhancement is seen. Hardware is noted extending into the left zygomatic arch just above the temporomandibular joint. The hardware appears well seated. There is mild mucosal thickening of the external auditory canal. This mucosal thickening is somewhat more pronounced than on the prior study. No rim-enhancing collection is identified to suggest abscess. The left mastoid air cells and left middle ear cavity are well aerated. The inner ear structures including the internal auditory canal, cochlea, vestibule and semicircular canals are normal. The vestibular aqueduct is normal in size. The facial nerve is normal along its course. The mineralization of the inner ear bone is normal. The vascular structures are normal in position and appearance. Right temporal bone: The internal auditory canal, vestibule and semicircular canals, vestibular aqueduct and cochlea are normal in appearance. The mineralization of the inner ear bone is normal. The round window niche and oval window are normal in appearance. The facial nerve canal is normal along its course. The ossicles are normal in configuration. The scutum is sharp. No fluid or soft tissue seen with the middle ear cavity. The mastoid air cells are normally developed and well-aerated. The external auditory canal is normal and the tympanic membrane is thin. The vascular structures are normal in position and configuration. IMPRESSION IMPRESSION: 1. Status post left mandibular condyle replacement with a prosthesis extending to a fluid collection that may be part of the prosthesis at the left temporomandibular joint. Hardware is noted along the zygoma at the temporomandibular joint. This appearance is stable since the prior study. 2. No rim-enhancing fluid collection identified to suggest abscess. 3. Mild thickening of the skin at the external auditory canal compared to the prior study. No abscess is seen. These results are discussed with Dr. Ramirez at the time of dictation. Yoon Ramirez MD CT ORDERABLES * C-REACTIVE PROTEIN (07/23/2012 4:10 PM PROFESSIONAL ORGANIZER) CRP 0.1 0.0 - 0.8 mg/dL [facility] Blood specimen (specimen) 07/23/2012 4:10 PM PROFESSIONAL ORGANIZER 07/23/2012 4:15 PM PROFESSIONAL ORGANIZER Yoon Ramirez MD CHEMISTRY ORDERABLES [facility] CLIA# [id number] [address] [facility] [place] [address] * COMPREHENSIVE METABOLIC PANEL (07/23/2012 4:10 PM PROFESSIONAL ORGANIZER) Pathologist [facility] SODIUM 139 135 - 145 mmol/L [facility] POTASSIUM 4.1 3.5 - 4.9 mmol/L [facility] CHLORIDE 106 96 - 108 mmol/L [facility] CO2 23 22 - 30 mmol/L [facility] CALCIUM 9.1 8.6 - 10.2 mg/dL [facility] BUN 12 6 - 20 mg/dL [facility] CREATININE 0.75 0.51 - 0.95 mg/dL [facility] GLUCOSE 86 65 - 99 mg/dL [facility] TOTAL PROTEIN 7.6 6.3 - 8.6 g/dL [facility] ALBUMIN 4.4 3.4 - 4.8 g/dL [facility] BILIRUBIN TOTAL 0.4 0.2 - 1.0 mg/dL [facility] ALKALINE PHOSPHATASE 85 35 - 104 U/L [facility] AST 21 12 - 32 U/L [facility] ALT 19 0 - 31 U/L [facility] GFR, >60 >=60 mL/min/1. [address] [facility] GFR >60 >=60 mL/min/1. [address] [facility] Comment: GFR is calculated using the IDMS-Traceable Modification of Diet in Renal Disease (MDRD) Study formula and is only valid for patients 18 years or older. Further interpretative information is available in the Laboratory Services Policy Manual on the [facility] [place] [facility] at: [email or web address]/ Blood specimen (specimen) 07/23/2012 4:10 PM PROFESSIONAL ORGANIZER 07/23/2012 4:15 PM PROFESSIONAL ORGANIZER Yoon Ramirez MD CHEMISTRY ORDERABLES [facility] CLIA# [id number] [address] [facility] [place] [address] * CBC WITH DIFFERENTIAL (07/23/2012 4:10 PM PROFESSIONAL ORGANIZER) WBC 7.0 4.0 - 9.8 K/uL [facility] - [facility] RBC 4.33 3.90 - 4.90 M/uL [facility] - [facility] HEMOGLOBIN 14.1 11.8 - 14.8 g/dL [facility] - [facility] HEMATOCRIT 42.0 35.5 - 44.0 % [facility] MCV 97.0 82.0 - 99.0 fL [facility] - [facility] MCH 32.6 27.2 - 32.6 pg [facility] - [facility] MCHC 33.6 31.5 - 35.5 % [facility] - [facility] PLATELETS 224 140 - 350 K/uL [facility] MPV 11.0 9.3 - 12.4 fL [facility] - [facility] RDW 13.5 11.5 - 14.5 % [facility] RDW-STDEV 47.8 37.1 - 48.7 fL [facility] - . [facility] NEUTROPHILS 59 45 - 70 % [facility] - [facility] LYMPHOCYTES 30 16 - 45 % [facility] MONOCYTES 8 3 - 13 % [facility] - . [facility] EOSINOPHILS 2 0 - 7 % [facility] - [facility] BASOPHILS 0 0 - 2 % [facility] NEUTROPHIL ABSOLUTE 4.12 1.90 - 7.00 K/uL [facility] LYMPHOCYTE ABSOLUTE 2.07 0.70 - 4.50 K/uL [facility] MONOCYTE ABSOLUTE 0.58 0.10 - 1.30 K/uL [facility] EOSINOPHIL ABSOLUTE 0.17 0.00 - 0.70 K/uL [facility] - [facility] BASOPHILS ABSOLUTE 0.02 0.00 - 0.20 K/uL [facility] - [facility] Blood specimen (specimen) 07/23/2012 4:10 PM PROFESSIONAL ORGANIZER 07/23/2012 4:15 PM PROFESSIONAL ORGANIZER Yoon Ramirez MD HEMATOLOGY ORDERABLE S [facility] LABORATORY SERVICES [facility] CLIA# [id number] [address] [facility] [place] [address] documented in this encounter Visit Diagnoses Diagnosis Abscess Cellulitis and abscess of unspecified site documented in this encounter Administered Medications Inactive Administered Medications - up to 3 most recent administrations Medication Order MAR Action Action Date Dose Rate Site ioversol (OPTIRAY 320) 320 mg iodine/mL syringe 125 mL 125 mL, IV, INTRA-PROCEDURE ONCE, 1 dose, Starting on Thu07/23/12 at 1727, Until Thu07/23/12 at 1728 Given 07/23/2012 5:28 PM PROFESSIONAL ORGANIZER 125 mL documented in this encounter Active and Recently Administered Medications Times are shown in PROFESSIONAL ORGANIZER. Scheduled Medication Order 07/21/2012 07/22/2012 07/23/2012 ioversol (OPTIRAY 320) 320 mg iodine/mL syringe 125 mL (COMPLETED) 125 mL, IV, INTRA-PROCEDURE ONCE, 1 dose, Starting on Thu07/23/12 at 1727, Until Thu07/23/12 at 1728 1728 (Given - Provid er: Alok Pollack, RT) documented in this encounter Care Teams Wrapper Hands Sprayer Relationship Specialty Start Date End Date Emmanuel Rodríguez MD PCP - General Internal Medicine 12/02/10 08/08/12 documented as of this encounter
--- OUTSIDE RECORDS SUMMARY | 2024-07-16 13:02 | XMS_ITS | Encounter Summary ---
Author Organization [facility] Address [address] [place] [address] Care Team Providers Care Mainspring Barrel Assembly Cleaner Name Role Phone Unavailable Primary Care Provider Unavailabl e Encounter Details Date Type Department Care Team (Latest Contact Info) Description 08/09/2012 10:15 AM MANAGER MARKET RESEARCH - 08/09/2012 11:59 PM MANAGER MARKET RESEARCH Hospital Encounter [facility] [address] [place] [address] Kraig Gabriel MD [address] [address] Discharge Disposition: Home or Self Care Social [...] Sign Reading Time Taken Comments Blood Pressure 113/77 08/09/2012 10:39 AM MANAGER MARKET RESEARCH Pulse 98 08/09/2012 10:39 AM MANAGER MARKET RESEARCH Temperature - - Respiratory Rate - - Oxygen Saturation - - Inhaled Oxygen Concentration - - Weight 96.6 kg (213 lb) 08/09/2012 10:39 AM MANAGER MARKET RESEARCH Height 162.6 cm (5' 4 ) 08/09/2012 10:39 AM MANAGER MARKET RESEARCH Body Mass Index 36.56 08/09/2012 10:39 AM MANAGER MARKET RESEARCH documented in this encounter Medications at Time [...] needed. 05/25/2015 documented as of this encounter Procedure Notes * Harjit Stadam - 08/16/2012 4:25 PM CSTAssociated Order(s): EKG 12-LEAD Electronically signed by [facility], [facility] Category Development Manager Incoming at 08/16/2012 4:25 PM MANAGER MARKET RESEARCH * Harjit [facility] - 08/11/2012 5:26 PM CSTAssociated Order(s): EKG 12-LEAD Electronically signed by [facility], [facility] Category Development Manager Incoming at 08/11/2012 5:26 PM MANAGER MARKET RESEARCH documented in this encounter OR Notes * OR Anesthesia - Layla Perez PA - 08/09/2012 11:13 AM CST Pre-Procedure Anesthesiology Consultation and Evaluation (PACE) Service 08/09/2012 11:13 AM Name: Kayla Avila Age: 37 y.o. Sex: female CSN: [id number] Procedure: Cyst Lesion Mass Excision [1473] Surgeons/Assistants: * Harvey * .ptame Allergies Allergen Reactions ??? Erythromycin Seizure Current Outpatient Prescriptions Medication Sig Dispense Refill ??? cefUROXime axetil (CEFTIN) 500 mg Oral tablet Take 500 mg by mouth every 12 hours. ??? gabapentin (NEURONTIN) 600 mg Oral tablet [...] 875 mg by mouth every 12 hours. ??? HYDROcodone-acetaminophen (NORCO) 7.5-325 mg Oral Tab Take 2 Tabs by mouth every 4 hours as needed. Told patient to take the following medications AM DOS with small sip of water: neurontin, Told patient to stop the following medications on : Nsaids, asa There are no active problems to display [...] ??? CAD (coronary artery disease) December 2011 [place] Past Surgical History Procedure Date ??? Pr reconstr jaw,full,endo implnt from 2000 to 2008 total of [address] Dylon Fung History Substance Use Topics ??? Smoking status: Former Smoker Types: Cigarettes Quit date: 07/09/2012 ??? Smokeless tobacco: Not on file ??? Alcohol Use: No No family history on file. Previous Anesthesia Problems/Concerns: Patient concerns based on previous anesthesia has woken up during surgeries before and also flat lines during surgeries Has had about 40 surgeries History of PONV No Review of Systems Cardiovascular: negative for chest pain, chest pressure/discomfort, exertional chest pressure/discomfort, palpitations, shortness of breath/dyspnea. had a heart attack 01/28 but the tests were fine, no intervention done followed by PMD Dr. Rodríguez in [place] Exercise Tolerance: Tries to exercise but somewhat limited Gastrointestinal: negative. Genitourinary:negative. Respiratory: negative. DENNYS -yes uses CPAP Snores- yes Smoker-Quit Musculoskeletal: negative Neurological: positive for left facial nerves cut by Dr. Allen Endocrine negative Renal:negative Hematology/Oncology:negative PHYSICAL EXAM BP 113/77 Pulse 98 Ht 5' 4 (1.626 m) Wt 213 lb (96.616 kg) BMI 36.56 kg/m2 LMP 07/30/2012 Weight: Weight: 213 lb (96.616 kg) (08/09/12 1039) Height: Ht Readings from Last 1 Encounters: 08/09/12 5' 4 (1.626 m) BMI: Body mass index is 36.56 kg/(m^2). General Appearance: Alert, oriented, no acute distress Airway: normal range of motion; Airway Class: III (soft palate, base of uvula visible); Special Considerations Mouth Opening 1 Finger Breadth, has left TMJ titanium plate Dentition: Normal good Lungs: clear to auscultation bilaterally, normal respiratory effort Heart: regular rate and rhythm, S1, S2 normal, no murmur, click, rub or gallop Neuro: alert, oriented x 3, no defects noted in general exam. Extremities: extremities normal, atraumatic, no cyanosis or edema LABS Lab Results Component Value Date WBC 7.0 07/23/2012 HEMOGLOBIN 14.1 07/23/2012 HEMATOCRIT 42.0 07/23/2012 PLATELETS 224 07/23/2012 MCV 97.0 07/23/2012 Lab Results Component Value Date SODIUM 139 07/23/2012 POTASSIUM 4.1 07/23/2012 CHLORIDE 106 07/23/2012 CO2 23 07/23/2012 CALCIUM 9.1 07/23/2012 BUN 12 07/23/2012 CREATININE 0.75 07/23/2012 GLUCOSE 86 07/23/2012 No results found for this basename: INR, PT, PROTIMEPOC Lab Results Component Value Date POC , URINE Negative 12/06/2008 EK/13 normal sinus rhythm Other Studies/Considerations: Cardiac studies 02/28 Cardiac Stress Negative for ischemia 02/28 Cardiac ECHO Mild MR, TR, normal LVF EF 55-65% 11/25 Old anesthesia full record in paper chart Grade 2 view, Glidescope used 07/28 Old anesthesia full record in paper chart LMA #3 used 04/26 Old anesthesia full record in paper chart Grade 4 view, Nasal intubation done Risks/Alternatives discussed. Questions solicited and answered. Yes Postop pain management discussed yes Smoking/Tobacco Counseling: None Recommendations:DENNYS precautions or Potential difficult intubation REPORT AND NECESSARY FOLLOW-UP History and physical performed in [facility]; tests (ECG, blood work) reviewed. Abnormal Results Found: no Further Testing or Evaluation Required: LOO to PMD? Final [facility] Center Review: May proceed with procedure/surgery: no,LOO to PMD MADONNA Abad 11:13 AM 08/09/2012 Letter of Optimization Received: 08/10/12 Flaring Machine Operator/Yam Curer: Dr. Rodríguez Patient is optimized for surgery without further testing required Risk Stratification: low risk for perioperative cardiac event Postop Disposition Per anesthesiology/surgical team Final [facility] Center Review: May proceed with procedure/surgery: YES Layla Perez PA-C 08/10/2012 8:24 AM GER MARKET RESEARCH documented in this encounter Plan of Treatment Not on file documented as of this encounter Procedures Procedure Name Priority Date/Time Associated Diagnosis Comments EKG 12-LEAD Routine 08/16/2012 4:25 PM MANAGER MARKET RESEARCH HEMOGLOBIN AND HEMATOCRIT Routine 08/09/2012 10:35 AM MANAGER MARKET RESEARCH documented in this encounter Results * EKG 12-LEAD (08/16/2012 4:25 PM MANAGER MARKET RESEARCH) Narrative Transcriptions Scanning, St - 08/11/2012 5:26 PM CST Scanning, Stl - 08/16/2012 4:25 PM CST Kraig Gabriel MD ECG ORDERABLES * HEMOGLOBIN AND HEMATOCRIT (08/09/2012 10:35 AM MANAGER MARKET RESEARCH) HEMOGLOBIN 13.9 11.8 - 14.8 g/dL [facility] HEMATOCRIT 41.4 35.5 - 44.0 % [facility] Blood specimen (specimen) 08/09/2012 10:35 AM MANAGER MARKET RESEARCH 08/09/2012 12:02 PM MANAGER MARKET RESEARCH Kraig Gabriel MD HEMATOLOGY ORDERABLE S Performing Organization Address City/[facility] Co de Phone Number [facility] LABORATORY SERVICES [facility]# [id number] [address] [place] [address] documented in this encounter Visit Diagnoses Not on filedocumented in this encounter
--- OUTSIDE RECORDS SUMMARY | 2024-07-16 13:02 | XMS_ITS | Encounter Summary ---
Author Organization [facility] Address [address] [place] [address] Care Team Providers Care Launch Manager Name Role Phone Davi Georges MD Primary Care Provider [phone] Encounter Details Date Type Department Care Team (Late st Contact Info) Description 04/15/2008 Outpatient Historical HIS PATIENT IN A BED Maggy Fung MD [address] [place] [id number] Social History Tobacco Use Types Packs/Day Years Used Date Smoking Tobacco: Never Assessed Sex and Gender Information Value Date Recorded Sex Assigned at Not on file Gender Identity Not on file Sexual Orientation Not on file documented as of this encounter Plan of Treatment Not on file documented as of this encounter Procedures Procedure Name Priority Date/Time Associated Diagnosis Comments HEMOGLOBIN AND HEMATOCRIT Stat 04/19/2008 8:30 PM CDT PATHOLOGY Routine 04/19/2008 5:00 PM CDT POC , URINE Routine 04/19/2008 1:55 PM CDT HEMOGLOBIN AND HEMATOCRIT Routine 04/18/2008 9:18 AM CDT documented in this encounter Results * (ABNORMAL) HEMOGLOBIN AND HEMATOCRIT (04/19/2008 8:30 PM CDT) HEMATOCRIT 26.3(L) 35.5 - 44.0 % [facility] HEMOGLOBIN 8.7(L) 11.8 - 14.8 g/dL [facility] Blood specimen (specimen) 04/19/2008 8:30 PM CDT 04/19/2008 8:42 PM CDT Soto Baez DO HEMATOLOGY ORDERABLE S INTERFACE SYSTEM Refer to clinic/hospital department [facility] CLIA# [id number] [address] [place] [address] * PATHOLOGY (04/19/2008 5:00 PM CDT) FIN[place] REPORT [place] [place] ? [place], [place] ??[id number] ? Patient: ??AMITA SIMPSON ? : ??1975 ? Procedure Date: ??04/19/2008 ? Accession Date: ??04/20/2008 ? Case No: ??[id number] ? Ordering Dr: ??MAGGY FUNG ? Case types AW, BW, FW, NW and SH are performed by [facility] ? [facility], [place], [place] ?SURGICAL PATHOLOGY & NON-GYNECOLOGIC CYTOPATHOLOGY REPORT ? DIAGNOSIS ? BONE, LEFT MANDIBULAR CONDYLE, EXCISION: ? - NO PATHOLOGIC DIAGNOSIS. ? Specimen Description: ? Left mandibular condyle. ? Operative Procedure: ? Left temporomandibular joint replacement, left temporomandibular joint ? mobilization, steroid injection and trigeminal nerve block, left ? coronoidectomy and abdominal fat graft harvest. ? Patient Information/History/ Diagnosis: ? Temporomandibular joint disorder (left). ? Gross: ? Received in a single container labeled Amita Simpson, left mandibular ? condyle are three irregular pieces of bone with attached skeletal muscle. ? The three pieces are 3.5 x 2.7 x 1.4 cm in aggregate. The surface of the ? bone is griggs and smooth. Rn Cardiac Cath sections are submitted in cassette ? A1 for decalcification. ? KLA/VIVI 04.20.2008 10:05 am ? Microscopic: ? The slide is labeled [id number] and Amita Simpson. ? The specimen consists of pieces of cortical bone which appear mildly ? thickened but otherwise smooth-surfaced and unremarkable. No overlying ? articular cartilage is present. The marrow contains trilineage ? hematopoietic elements, including a few lymphoid aggregates. No significant ? reactive or degenerative changes are seen. ? GL/VIVI 04.25.2008 01:56 pm ? Staging Form: ? No. ? ELECTRONIC SIGNATURE FOR GINNA STOVER M.D.- 04/25/08 02:34 pm INTERFACE SYSTEM 04/19/2008 5:00 PM CDT Maggy Fung MD PATHOLOGY/CYTOLOGY O HITESH INTERFACE SYSTEM Refer to clinic/hospital department * POC , URINE (04/19/2008 1:55 PM CDT) , URINE POC Negative Negative [facility] Urine specimen (specimen) 04/19/2008 1:55 PM CDT 04/19/2008 1:55 PM CDT Maggy Fung MD POINT OF CARE TESTIN G Performing Organization Address City/[facility]/ZIP Co de Phone Number INTERFACE SYSTEM Refer to clinic/hospital department [facility] CLIA# [id number] [address] [place] [address] * HEMOGLOBIN AND HEMATOCRIT (04/18/2008 9:18 AM CDT) HEMOGLOBIN 12.4 11.8 - 14.8 g/dL [facility] HEMATOCRIT 36.8 35.5 - 44.0 % [facility] Blood specimen (specimen) 04/18/2008 9:18 AM CDT 04/18/2008 10:08 AM CDT Maggy Fung MD HEMATOLOGY ORDERABLE S Performing Organization Address City/[facility]/ZIP Co de Phone Number INTERFACE SYSTEM Refer to clinic/hospital department [facility] CLIA# [id number] [address] [place] [address] documented in this encounter Visit Diagnoses Not on filedocumented in this encounter Additional Health Concerns Infection Onset Date Last Indicated Resolved Time COVID-19 08/17/2021 08/17/2021 09/16/2021 1:16 AM HEAD SWAMPER documented as of this encounter Care Teams Launch Manager Relationship Specialty Start Date End Date Davi Georges MD [facility] [place] [address] PCP - General Family Practice 08/14/21 documented as of this encounter
--- OUTSIDE RECORDS SUMMARY | 2024-07-16 13:02 | XMS_ITS | Encounter Summary ---
Author Organization [facility] Address [address] [place] [address] Care Team Providers Care White Sourer Name Role Phone Unavailable Primary Care Provider Unavailabl e Encounter Details Date Type Department Care Team (Latest Contact Info) Description 11/07/2008 Orders Only HIS CONVERSION Conversion, History Social History Tobacco Use Types Packs/Day Years Used Date Smoking Tobacco: Never Assessed Sex and Gender Information Value Date Recorded Sex Assigned at Not on file Gender Identity Not on file Sexual Orientation Not on file documented as of this encounter Progress Notes * Conversion, History - 02/04/2009 8:[address] [place], [place] [address] cc: Dylon Fung DDS, SURGEON Dylon Fung DDS, M.D. 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 OPERATION NAME 1. Excision of neuroma and hypertrophic left preauricular cicatrix. 2. Neurectomy, left preauricular auriculotemporal nerve. 3. Steroid injection. ANESTHESIA General anesthesia, via oral endotracheal tube surgeon. ESTIMATED BLOOD LOSS Minimal. FLUID REPLACEMENT Please see Anesthesia report. DRAINS None. SPECIMEN Left preauricular hypertrophic cicatrix. IMPLANTS None. COMPLICATIONS None. INDICATIONS This is a female patient, long known to me for temporomandibular disorder following a dog bite injury. The patient has undergone total joint replacement, with subsequent significant left facial pain and neck pain. The patient has undergone C2 dissection by another surgeon, who recommended proceeding with the above procedure. The risks, benefits, and alternatives of management were reviewed at length, with the patient electing to proceed with the above procedure. FINDINGS The patient was taken to the operating room, and placed on the table in supine position, and general anesthesia was induced via oral endotracheal tube. The patient was then prepped and draped in a standard fashion for temporomandibular joint type procedures. Local anesthetic was then administered to the site, followed by outlining of the hypertrophic cicatrix. Please note that throughout the dissection, a nerve stimulator was utilized to confirm no presence of the seventh cranial nerve. Incision was made in an elliptical fashion around the hypertrophic skin portion, down through skin and subcutaneous tissue. This dissection was then carried, tracking the scar tissue down to the lateral aspect of the joint prosthesis. Upon arrival at the lateral aspect of the joint prosthesis, a screw on the fossa portion was noted to be loose, and was removed at that point. Dissection posteriorly in the area of the auriculotemporal nerve was then made, removing any scar tissue found. Once excised, this was handed off for permanent pathologic evaluation. The wound was then closed in a layered fashion with 4-0 Vicryl suture for deep wound closure, and a 5-0 blue Prolene for cutaneous wound closure. At the completion of the procedure, a qaz-aj-don-to-one mixture of 1 mL of Kenalog at 40 mg/mL, 1 mL of Duramorph at 1 mg/mL, and 1 mL of 0.5% Marcaine with 1:200,000 epinephrine, was then ejected from skin into the depth of the wound. The wound was then dressed with antibiotic ointment, and overlying gauze. The patient was then turned back over to the Anesthesia team for emergence from general anesthesia. DISPOSITION The patient had an unremarkable emergence from general anesthesia, was extubated on the table, and was transferred to the Post-Anesthesia Care Unit in stable condition. PRM:MEDQ Dictated by: Dylon Fung DDS, MD Dylon Fung DDS, MD Result Type: OPERATIVE REPORT Result Date: December 06, 2008 06:06 PM Result Status: UNREVIEWED * Conversion, History - 12/22/2008 1:[address] [place], [place] [address] cc: Jose Allen MD SURGEON Jose Allen MD PREOPERATIVE DIAGNOSIS 1. Left neuroma of transverse cervical branch. 2. Left neuroma of auricular nerve. POSTOPERATIVE DIAGNOSIS 1. Left neuroma of transverse cervical branch. 2. Left neuroma of auricular nerve. OPERATION NAME 1. Resection of more proximal great auricular nerve and transposition into the deeper neck muscles. 2. Resection of a transverse cervical nerve and transposition into the deeper neck muscle tissue. ANESTHESIA General. COMPLICATIONS None. INDUSTRIAL NURSE Fredo Garner PA-C INDICATIONS This is a very nice 33-year-old female who has had ongoing problems with causalgia centered around a left jaw injury and follow-up surgery. She has had previous neuroma resections in the preauricular area performed, now has recurrent remnants at a site more inferior in the neck. We have blocked these with diagnostic blocks, she had significant relief in the appropriate distribution of the left jaw and neck. She understands the risks and benefits of the procedure, the spectrum of possible outcomes and has consented for surgery. She understands the postoperative course and she understands that she will likely need a secondary procedure followed by Dr. Fung. PROCEDURE The patient was brought to the operating room, placed in the supine position. General anesthesia was induced. The left neck, cheek and upper chest were prepped and draped in a sterile fashion. In the preoperative holding area we marked the best we could the most sensitive areas and the overall hypersensitive area. These were consistent with the greater auricular nerve and branches of the transverse cervical nerve. We made a counterincision, not the previous incision in the neck. The counterincision was more inferior and oblique within the creases of the neck. This was injected with 0.25% Marcaine with epinephrine and 5 minutes were allowed to elapse. We then made sharp dissection through skin down through the subcutaneous tissue identifying the level of the platysma and opening that as well. Just below the platysma in the superior portion of the incision we were able to find the great auricular nerve and two smaller branches as well heading more medially. These were identified. We then dissected more inferiorly and found 2 branches crossing the sternocleidomastoid heading directly into the previous and more superior incision. We then neurolysed and dissected these back to a common nerve under the reflection of the SCM. We then transected the 2 branches back to the common branch, left enough length that we could bury these underneath the SCM deeper neck muscles. We did this without any complication and prior to cutting and burial we did inject them with 0.25% Marcaine with epinephrine. Then we turned our attention to the more superior and larger nerve, the greater auricular nerve. We cleaned and neurolysed this back to the posterior triangle of the neck behind the SCM. We again transected this distally, bipolared the distal end and then the neurolysis back, trimmed some off, sent this for specimen and then carefully under multiple layers of muscle buried the great auricular nerve. We then actually ranged the neck back and forth see if this was stable for both the nerve which it was. We then irrigated gently and closed the wound in layered fashion. The subcutaneous tissue injected with additional Marcaine and standard dressing was placed. The patient tolerated the procedure well. RH:MEDAmi Dictated by: Jose Allen MD Jose Allen MD Result Type: OPERATIVE REPORT Result Date: November 07, 2008 11:00 AM Result Status: UNREVIEWED documented in this encounter Plan of Treatment Not on file documented as of this encounter Visit Diagnoses Not on filedocumented in this encounter
--- OUTSIDE RECORDS SUMMARY | 2024-07-16 13:02 | XMS_ITS | Continuity of Care Document ---
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 acute headache . Pt also takes trazodone for insomnia chronic [id number] Pt was attack ed by a dog several years ago and she has left jaw injury and she underwent surgery more than 60 days due to bone fracture. Pt has chronic left jaw pain and she takes norco and also neurontin. Pt unable to open her mouth fully due to left jaw pain. Pt denies any redness or warmth of the left jaw area. Instructions Date Instruction Additional Infor mation No Information Assessments Type Assessment Date assessment Acute bronchitis Mental Status Date Cognitive Assessment Orientation - Braddock ed to time, place, person, situation.
--- OUTSIDE RECORDS SUMMARY | 2024-07-16 13:02 | XMS_ITS | Encounter Summary ---
Author Organization [facility] Address [address] [place] [address] Care Team Providers Care Airport Baggage Screener Name Role Phone Unavailable Primary Care Provider Unavailabl e Reason for Visit * Auth/Cert - Closed Specialty Diagnoses / Procedures Referred By Contelif t Referred To Contact General Surgery Diagnoses EAR CANAL NEOPLASM Procedures CYST LESION MASS EXCISION [facility] Or [address] [place] [address] Referral ID Status Reason Start Date Expiration Date Visits Re quested Visits Authorized [id number] Closed 1 1 Encounter Details Date Type Department Care Team (Latest Contact Info) Description 08/13/2012 8:44 AM SENIOR MASTER SCHEDULER - 08/13/2012 12:16 PM [facility] Hospital Encounter [facility] [address] [place] [address] Lucía Daily MD [address] [address] Discharge Disposition: Home or Self Care Social [...] Sign Reading Time Taken Comments Blood Pressure 105/78 08/13/2012 12:13 PM SENIOR MASTER SCHEDULER Pulse 88 08/13/2012 12:13 PM SENIOR MASTER SCHEDULER Temperature 36.5 ??C (97.7 ??F) 08/13/2012 12:13 PM C Respiratory Rate 20 08/13/2012 12:13 PM SENIOR MASTER SCHEDULER Oxygen Saturation 100% 08/13/2012 12:13 PM SENIOR MASTER SCHEDULER Inhaled Oxygen Concentration - - Weight 96.6 kg (213 lb) 08/09/2012 10:49 AM SENIOR MASTER SCHEDULER Height 162.6 cm (5' 4 ) 08/09/2012 10:49 AM SENIOR MASTER SCHEDULER Body Mass Index 36.56 08/09/2012 10:49 AM SENIOR MASTER SCHEDULER documented in this encounter Discharge Instructions * Discharge Instructions* Annie Guerra RN - 08/13/2012 11:28 AM SENIOR MASTER SCHEDULER Discharge to home Return to the office to see Dr. Daily in 1 week Activity level as tolerated. Call doctor [phone] for fever>101 degrees, uncontrolled pain, excessive bleeding, [...] or come to the Emergency Room at [place] ([phone]) or the nearest Emergency Room. In an emergency, Call 911. OR MASTER SCHEDULER documented in this encounter Medications at Time [...] encounter H&P Notes * Scanning, Stl - 08/16/2012 3:25 PM CST Electronically signed by Interface, [facility] [employer] Incoming at 08/16/2012 3:25 PM SENIOR MASTER SCHEDULER * Lucía Daily MD - 08/13/2012 9:05 AM CST I have reviewed the last H&P and assessed the patient today and there are no changes. CV-RRR PULM-CTA ABD-SOFT NEURO-INTACT GROSSLY OR MASTER SCHEDULER documented in this encounter Consult Notes * Scanning, St - 08/16/2012 3:25 PM CST Electronically signed by Interface, [facility] [employer] Incoming at 08/16/2012 3:25 PM SENIOR MASTER SCHEDULER documented in this encounter OR Notes * OR Anesthesia - Scanning, St - 08/16/2012 3:25 PM CST Electronically signed by Interface, [facility] [employer] Incoming at 08/16/2012 3:25 PM SENIOR MASTER SCHEDULER * Operative Report - Lucía Daily MD - 08/14/2012 12:16 AM CST [place], [place] [address] Operative Report CSN: [id number] DATE OF SERVICE: 08/13/2012 SURGEON uLcía Daily MD PREOPERATIVE DIAGNOSIS Left ear canal [...] microscope was brought in. Next, the straight [place] blade was used to incise the base [...] prosthesis in the wound itself. Next, a Baldwin- Wick was placed and Ciprodex dropswere placed in the canal on top of this. She has had minimal bleeding, was returned to anesthesia. She was fully awaken and was taken back to [facility] in stable condition. SHH:MEDAmi DID: [id number] Dictated by: Lucía Daily MD OR MASTER SCHEDULER * OR Anesthesia - Kian Day MD - 08/13/2012 10:22 AM CST Pre-Anesthesia Evaluation - Long Form 08/13/2012 10:23 AM Name: Amita Simpson Age: 37 y.o. Sex: female CSN: [id number] Procedure: Procedure(s): CYST LESION MASS EXCISION Surgeons/Assistants: [...] Continuous Patrice Rodriguez MD 150 mL/hr at 08/13/12 1015 There [...] CAD (coronary artery disease) December 2011 NE Past Surgical History Procedure Date ??? Pr [...] and is difficult to intubate, Had ? NE under anesthesia History of PONV No Review of Systems Cardiovascular: ? NE 2011 no intervention Respiratory: +DENNYS on CPAP [...] solicited and answered. Yes Kian Day MD OR MASTER SCHEDULER * Ankush-OP - Serafin Rodriguez RN - 08/13/2012 10:22 AM CST LIDOCAINE 1% WITH EPINEPHRINE 1:100,000 ML injected Epi 1:1000 topical, Ciprodex gtts left ear Report called to PACU OR MASTER SCHEDULER documented in this encounter Miscellaneous Notes * Scanned Form - Scanning, St - 08/16/2012 3:25 PM CST Electronically signed by Noemi [facility] [employer] Incoming at 08/16/2012 3:25 PM SENIOR MASTER SCHEDULER * Scanned Form - Scanning, [facility] - 08/16/2012 3:25 PM CST Electronically signed by Interface [facility] [employer] Incoming at 08/16/2012 3:25 PM SENIOR MASTER SCHEDULER * Scanned Form - Scanning, St - 08/16/2012 3:25 PM CST Electronically signed by Interface, [facility] [employer] Incoming at 08/16/2012 3:25 PM SENIOR MASTER SCHEDULER * Scanned Form - Scanning, St 08/16/2012 3:25 PM CST Electronically signed by Interface, [facility] [employer] Incoming at 08/16/2012 3:25 PM SENIOR MASTER SCHEDULER * Scanned Form - Scanning, St 08/16/2012 3:25 PM CST Electronically signed by Interface, [facility] [employer] Incoming at 08/16/2012 3:25 PM SENIOR MASTER SCHEDULER * Patient Instructions - Scanning, St - 08/16/2012 3:25 PM CST Electronically signed by Interface, [facility] [employer] Incoming at 08/16/2012 3:25 PM SENIOR MASTER SCHEDULER * Ken Marie - Annie Guerra RN - 08/13/2012 11:27 AM CST Knowledge [...] pain/comfort utilizing verbal/nonverbal pain scales; assess culturalor restorationism indicators attached to pain; administer pain medications as prescribed; utilize non-pharmacologic pain control and comfort measures Expected Outcome: Patient demonstrates and reports adequate pain control Outcome Met:Patient demonstrates and reports adequate pain control. OR MASTER SCHEDULER * Ken Marie - Macho Vaughan RN - 08/13/2012 9:47 [...] experience Outcome Met: ankush op procedures explained OR MASTER SCHEDULER documented in this encounter Plan of Treatment Not on file documented as of this encounter Procedures Procedure Name Priority Date/Time Associated Diagnosis Comments PATHOLOGY Routine 08/13/2012 11:57 AM SENIOR MASTER SCHEDULER CYST LESION MASS EXCISION 08/13/2012 10:19 AM SENIOR MASTER SCHEDULER EAR CANAL NEOPLASM Case Notes [employer], CLAIM # [id number] AUTHORIZED BY ZHANG MCKINNEY , URINE Routine 08/13/2012 10:15 AM SENIOR MASTER SCHEDULER documented in this encounter Results * PATHOLOGY (08/13/2012 11:57 AM SENIOR MASTER SCHEDULER) SURGICAL PATHOLOGY ?[facility] ?[address] ? [place], [place] ??[address] ? Patient: ??AMITA SIMPSON F ? : ??1975 ? Procedure Date: ??08/13/2012 ? Accession Date: ??08/13/2012 ? Case No: ??[id number] ? Ordering Dr: ??LUCÍA DAILY ? Case type SW is performed by [facility] [place] [facility], [address], ? [place], [place] ??[address]; all other case types are performed by [facility] ? [facility], [address] [facility], [place] ??[address] ?SURGICAL PATHOLOGY & NON-GYNECOLOGIC CYTOPATHOLOGY REPORT ? [...] a single container labeled Amita Ellis. ? Lievers, left ear canal lesion and consists of an irregularly-shaped piece ? of pink-red tissue that is 1.8 x 0.4 x 0.3 cm. The entire specimen is ? submitted in cassette A1. ? [facility] 08.13.2012 01:34 pm ? Microscopic: ? Received are slides labeled [id number], Amita Simpson. ? Sections of left ear [...] FOR SHAUNA BRENNAN M.D.- 08/16/12 03:50 pm [facility] Specimen of unknown material (specimen) 08/13/2012 11:57 AM SENIOR MASTER SCHEDULER Lucía Daily MD PATHOLOGY/CYTOLOGY O RDERABLES Performing Organization Address [facility]/ZIP Co de Phone Number [facility] CLIA# [id number] [address] [place] [address] * POC , URINE (08/13/2012 10:15 AM SENIOR MASTER SCHEDULER) , URINE POC Negative Negative [facility] CLIA LICENSE [id number] [facility] 08/13/2012 10:1 5 AM SENIOR MASTER SCHEDULER 08/13/2012 10:15 AM SENIOR MASTER SCHEDULER Comment:URINE Lucía Daily MD POINT OF CARE TESTIN G Performing Organization Address [facility] Co de Phone Number [facility] [id number] [address] [place] [address] documented in this encounter Visit Diagnoses Not on filedocumented in this encounter Administered Medications Inactive Administered Medications - up to 3 most recent administrations Medication Order MAR Action Action Date Dose Rate Site lactated ringers solution IV, at 150 mL/hr, PRE-PROCEDURE CONTINUOUS, Starting on Thu08/13/12 at 1015, Until Thu08/13/12 at 1416, Routine, Pre-op Now New Bag 08/13/2012 10:15 AM SENIOR MASTER SCHEDULER 150 mL/hr documented in this encounter Active and Recently Administered Medications Times are shown in SENIOR MASTER SCHEDULER. Continuous Medication Order 08/11/2012 08/12/2012 08/13/2012 lactated ringers solution (CANCELED) IV, at 150 mL/hr, PRE-PROCEDURE CONTINUOUS, Starting on Thu08/13/12 at 1015, Until Thu08/13/12 at 1416, Routine, Pre-op Now 1015 (New Bag - Prov ider: Macho Vaughan RN)1214 (Stopped - Provider: Annie Guerra RN) documented in this encounter
--- OUTSIDE RECORDS SUMMARY | 2024-07-16 13:02 | XMS_ITS | Encounter Summary ---
Author Organization [facility] Address [address] [place] [address] Care Team Providers Care Repeat Photocomposing Machine Operator Name Role Phone Davi Georges MD Primary Care Provider [phone] Encounter Details Date Type Department Care Team (Late st Contact Info) Description 05/04/2008 Outpatient Historical [facility] Dylon Fung MD [address] [place] [address] Social History Tobacco Use Types Packs/Day Years [...] Associated Diagnosis Comments POC , URINE Routine 05/17/2008 3:15 PM CDT documented in this encounter Results * POC , URINE (05/17/2008 3:15 PM CDT) , URINE POC Negative Negative [facility] Urine specimen (specimen) 05/17/2008 3:15 PM CDT 05/17/2008 3:15 PM CDT Dylon Fung MD POINT OF CARE TESTIN G INTERFACE SYSTEM Refer to clinic/hospital department [facility] CLIA# [id number] [address] [place] [address] documented in this encounter Visit Diagnoses Not on filedocumented in this encounter Additional Health Concerns Infection Onset Date Last Indicated Resolved Time COVID-19 08/17/2021 08/17/2021 09/16/2021 1:16 AM TRACK WELDER documented as of this encounter Care Teams Repeat Photocomposing Machine Operator Relationship Specialty Start Date End Date Davi Georges MD [facility] [employer] [place] [address] PCP - General Family Practice 08/14/21 documented as of this encounter
--- OUTSIDE RECORDS SUMMARY | 2024-07-16 13:02 | XMS_ITS | Encounter Summary ---
Author Organization [facility] Address [address] [place] [address] Care Team Providers Care Postage Machine Operator Name Role Phone Emmanuel Rodríguez MD Primary Care Provider Unavailabl e Reason for Referral * Outpatient Services (Routine) - Closed Specialty Diagnoses / Procedures Referred By Contac t Referred To Contact CT Scan Diagnoses Facial cellulitis Otitis Procedures CT TEMPORAL BONE W Dylon Pichardo MD [address] [place] [address] Referral ID Status Reason Start Date Expiration Date Visits Re quested Visits Authorized [id number] Closed 07/16/2012 08/16/2013 1 1 ECTIONAL SUPPLY SUPERVISOR Reason for Visit * Outpatient Services (Routine) - Closed Specialty Diagnoses / Procedures Referred By Contac t Referred To Contact CT Scan Diagnoses Facial cellulitis Otitis Procedures CT TEMPORAL BONE W Dylon Pichardo MD [address] [address] Referral ID Status Reason Start Date Expiration Date Visits Re quested Visits Authorized [id number] Closed 07/16/2012 08/16/2013 1 1 Encounter Details Date Type Department Care Team (Latest Contact Info) Description 07/16/2012 2:39 PM CORRECTIONAL SUPPLY SUPERVISOR - 07/16/2012 11:59 PM CORRECTIONAL SUPPLY SUPERVISOR Hospital Encounter [facility] CT Scan S [facility] [address] [place] [address] Dylon Fung MD [address] [place], [place] [address] [address] Discharge Disposition: Home or Self Care Social [...] - Inhaled Oxygen Concentration - - Weight 88.5 kg (195 lb) 07/16/2012 3:08 PM CORRECTIONAL SUPPLY SUPERVISOR Height 164.5 cm (5' 4.75 ) 07/16/2012 3:08 PM CS T Body Mass Index 32.7 07/16/2012 3:08 PM CORRECTIONAL SUPPLY SUPERVISOR documented in this encounter Medications at [...] needed. 05/25/2015 documented as of this encounter Miscellaneous Notes * Scanned Form - Scanning, St - 09/06/2012 3:49 PM CST ECTIONAL SUPPLY SUPERVISOR * Scanned Form - Scanning, Stl - 09/06/2012 2:20 PM CST ECTIONAL SUPPLY SUPERVISOR documented in this encounter Plan of Treatment Not on file documented as of this encounter Procedures Procedure Name Priority Date/Time Associated Diagnosis Comments CT TEMPORAL BONE W CONTRAST Routine 07/16/2012 3:50 PM CORRECTIONAL SUPPLY SUPERVISOR Facial cellulitis Otitis documented in this encounter Results * CT TEMPORAL BONE W CONTRAST (07/16/2012 3:50 PM CORRECTIONAL SUPPLY SUPERVISOR) Anatomical Region Laterality Modality Head Computed Tomogra phy 07/16/2012 3:25 PM CORRECTIONAL SUPPLY SUPERVISOR Impressions 07/21/2012 2:24 PM CORRECTIONAL SUPPLY SUPERVISOR IMPRESSION: Some soft tissue thickening left external auditory canal but without evidence of abscess or malignant otitis externa. Status post left TMJ arthroplasty. Narrative 07/21/2012 2:[address]AL SUPPLY SUPERVISOR CT SCAN OF TEMPORAL BONES WITH IV CONTRAST 07/16/2012 HISTORY: Rule out malignant otitis externa, patient is status post prior left TMJ surgeries and titanium joint replacement FINDINGS: ??Midbrain, jimmy and medulla appear normal. There is normal enhancement of the sigmoid and transverse sinus. The left external auditory canal has minimal soft tissue thickening. There is no evidence of bone destruction or abscess. The left mastoid air cells are clear. Left middle ear is clear. Fossae of Rosenmuller and torus tubarius regions are normal. A left titanium prosthetic mandibular condylar head is noted. Procedure Note Dajuan Mcdonough MD - 07/21/2012 CT SCAN OF TEMPORAL BONES WITH IV CONTRAST 07/16/2012 HISTORY: Rule out malignant otitis externa, patient is status post prior left TMJ surgeries and titanium joint replacement FINDINGS: Midbrain, jimmy and medulla appear normal. There is normal enhancement of the sigmoid and transverse sinus. The left external auditory canal has minimal soft tissue thickening. There is no evidence of bone destruction or abscess. The left mastoid air cells are clear. Left middle ear is clear. Fossae of Rosenmuller and torus tubarius regions are normal. A left titanium prosthetic mandibular condylar head is noted. IMPRESSION IMPRESSION: Some soft tissue thickening left external auditory canal but without evidence of abscess or malignant otitis externa. Status post left TMJ arthroplasty. Dylon Fung MD CT ORDERABLES documented in this encounter Visit Diagnoses Diagnosis Facial cellulitis Cellulitis and abscess of face Otitis Unspecified otitis media documented in this encounter Administered Medications Inactive Administered Medications - up to 3 most recent administrations Medication Order MAR Action Action Date Dose Rate Site ioversol (OPTIRAY 320) 320 mg iodine/mL syringe 125 mL 125 mL, IV, INTRA-PROCEDURE ONCE, 1 dose, Starting on Thu07/16/12 at 1526, Until Thu07/16/12 at 1551 Given 07/16/2012 3:51 PM CORRECTIONAL SUPPLY SUPERVISOR 125 mL documented in this encounter Care Teams Postage Machine Operator Relationship Specialty Start Date End Date Emmanuel Rodríguez MD PCP - General Internal Medicine 12/02/10 08/08/12 documented as of this encounter
--- OUTSIDE RECORDS SUMMARY | 2024-07-16 13:02 | XMS_ITS | Encounter Summary ---
Author Organization [facility] Address [address] [place] [address] Care Team Providers Care Multi Mission Helicopter Aircrewman Name Role Phone Davi Georges MD Primary Care Provider [phone] Encounter Details Date Type Department Care Team (Latest Contact Info) Description 04/04/2008 Outpatient Historical [facility] Maggy Fung MD [address] [place] [address] Arthralgia of Temporomandibular Joint Social History Tobacco Use Types Packs/Day Years [...] Comments CT SINUS FACIAL BONES WO CONTRAST Timed Study 04/04/2008 8:10 AM CDT documented in this encounter Results * CT SINUS FACIAL BONES WO CONTRAST (04/04/2008 8:10 AM CDT) Anatomical Region Laterality Modality Head Other 04/04/2008 8:10 AM CDT Narrative 04/04/2008 1:55 PM CDT ? [facility] ? [address] ?[place] ??[address] ?Admit Date: 04/04/2008 ?AMITA SIMPSON F ?Sex: F ?Admit Prov: MAGGY FUNG ? Date: 1975 ?Primary Care Prov: ? CMRN: [id number] ?Room: MRI-A ?SSN: [id number] ? IMAGING SERVICES ?Ordering Prov: N/A ? Accession Number: [id number] ?Interpretation ? CT OF THE TMJ/MAXILLOFACIAL REGION WITHOUT CONTRAST, 04/04/2008 ? History: TMJ arthralgia, prior left TMJ surgery. ? Findings: Axial and direct coronal images demonstrate deformity of the ? superior left mandibular condyle and irregularity of the glenoid articular ? surface as well. Subchondral cystic changes and spurs are seen. The right ? TMJ is smooth and normal in appearance. No acute mandibular fracture is ? seen. The maxillofacial structures included are otherwise unremarkable. ? Impression: ? Deformity of the left glenoid fossa and especially of the superior left ? condylar articular surface. ? . ? Dictated by: ??VIOLETTA MARK ?04/04/2008 13:09 ? Electronically signed by: ??VIOLETTA MARK ?04/04/2008 13:53 ? Transcribed: ??04/04/2008 13:17 ?LE Procedure Note Violetta Mark - 04/04/2008 [address] [place], [place] [address] Admit Date: 04/04/2008 AMITA SIMPSON Sex: F Admit Prov: MAGGY FUNG Date: 1975 Primary Care Prov: CMRN: [id number] Room: [facility] SSN: [id number] IMAGING SERVICES Ordering Prov: N/A Interpretation CT OF THE TMJ/MAXILLOFACIAL REGION WITHOUT CONTRAST, 04/04/2008 History: TMJ arthralgia, prior left TMJ surgery. Findings: Axial and direct coronal images demonstrate deformity ofthe superior left mandibular condyle and irregularity of the glenoidarticular surface as well. Subchondral cystic changes and spurs are seen. Theright TMJ is smooth and normal in appearance. No acute mandibular fractureis seen. The maxillofacial structures included are otherwiseunremarkable. Impression: Deformity of the left glenoid fossa and especially of the superiorleft condylar articular surface. . Dictated by: VIOLETTA MARK 04/04/2008 13:09 Electronically signed by: VIOLETTA MARK 04/04/2008 13:53 Transcribed: 04/04/2008 13:17 LE Maggy Fung MD CT ORDERABLES documented in this encounter Visit Diagnoses Diagnosis Arthralgia of temporomandibular joint documented in this encounter Additional Health Concerns Infection Onset Date Last Indicated Resolved Time COVID-19 08/17/2021 08/17/2021 09/16/2021 1:16 AM RESTAURANT SERVICE MANAGER documented as of this encounter Care Teams Multi Mission Helicopter Aircrewman Relationship Specialty Start Date End Date Davi Georges MD [address] [place], [place] [address] [address] PCP - General Family Practice 08/14/21 documented as of this encounter
--- OUTSIDE RECORDS SUMMARY | 2024-07-16 13:02 | XMS_ITS | Encounter Summary ---
Author Organization [facility] Address [address] [place] [address] Care Team Providers Care Decorating Machine Tender Name Role Phone Davi Georges MD Primary Care Provider [phone] Encounter Details Date Type Department Care Team (Latest Contact Info) Description 05/08/2004 Outpatient Historical [facility] Dylon Fung MD [address] [place] [address] TMJ DISORD ARTHRALGIA (Primary Dx) Social History [...] Time COVID-19 08/17/2021 08/17/2021 09/16/2021 1:16 AM WAREHOUSE HELPER documented as of this encounter Care Teams Decorating Machine Tender Relationship Specialty Start Date End Date Davi Georges MD [address] [place] [phone] PCP - General Family Practice 08/14/21 documented as of this encounter
--- OUTSIDE RECORDS SUMMARY | 2024-07-16 13:02 | XMS_ITS | Encounter Summary ---
Author Organization [facility] Address 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 Name Role Phone Davi Georges MD Primary Care Provider [phone] Encounter Details Date Type Department Care Team (Late st Contact Info) Description 12/04/2008 Outpatient Historical [facility] Maggy Fung MD [facility] [place][note 2] [address] [address] Social History Tobacco Use Types Packs/Day Years Used Date Smoking Tobacco: Never Assessed Sex and Gender Information Value Date Recorded Sex Assigned at Not on file Gender Identity Not on file Sexual Orientation Not on file documented as of this encounter Plan of Treatment Not on file documented as of this encounter Procedures Procedure Name Priority Date/Time Associated Diagnosis Comments PATHOLOGY Routine 12/06/2008 5:00 PM CDT HEMOGLOBIN AND HEMATOCRIT Stat 12/06/2008 2:00 PM CDT POC , URINE Routine 12/06/2008 1:55 PM CDT documented in this encounter Results * PATHOLOGY (12/06/2008 5:00 PM CDT) FINAL REPORT ?[facility] [place] [facility] ? [place], [place] ??[id number] ? Patient: ??AMITA SIMPSON ? : ??1975 ? Procedure Date: ??12/06/2008 ? Accession Date: ??12/07/2008 ? Case No: ??[id number] ? Ordering Dr: ??MAGGY FUNG ? Case types AW, BW, FW, NW and SH are performed by [facility] ? [facility], [place], [place] ?SURGICAL PATHOLOGY & NON-GYNECOLOGIC CYTOPATHOLOGY REPORT ? DIAGNOSIS ? SKIN, LEFT PREAURICULAR, EXCISION: ? - HYPERTROPHIC SCAR. ? - FOREIGN BODY REACTION. ? - TRAUMATIC NEUROMA, CONSISTENT WITH. ? LEFT JAW, EXTRACTION: ? - FOREIGN BODY (SCREW). ? - ACUTE INFLAMMATION, MILD. ? - FIBROSIS. ? - CALCIFICATION. ? Specimen Description: ? (1) Left preauricular hypertrophic cicatrix; (2) hardware left jaw. ? Operative Procedure: ? Not stated. ? Patient Information/Histor y/Diagnosis: ? Preauricular neuroma. ? Gross: ? The specimens are received in two containers, both labeled Liealice, ? Amtia Ellis. Received in the first container labeled left preauricular ? hypertrophic cicatrix is a 3.2 x 0.3-cm, griggs piece of skin excised to a ? depth of 1.3 cm. The surgical margins are marked with blue ink and the ? specimen is sectioned to reveal no gross lesions. The entire specimen is ? submitted in cassette A1. ? Received in the second container labeled hardware left jaw is a bronze ? screw that measures 1.1 cm in length and 0.2 cm in diameter with adherent ? griggs tissue. The adherent tissue is scraped and aggregates to 0.2 x 0.2 x ? 0.1 cm. The adherent tissue is entirely submitted in cassette B1. ? LWL/SKW 12.07.2008 12:33 pm ? Microscopic: ? The slides are labeled [id number] Amita Simpson. ? The resected skin contains dense bundles of compact collagen within the ? lower dermis and subcutaneous tissue. Small foci of foreign body giant cell ? reaction are present. A region containing small nerve fascicles within the ? fibrous tissue is consistent with traumatic neuroma formation. ? Fibrosis, dense calcifications and clusters of neutrophils are associated ? with the extracted screw. ? KHF/DRC 12.08.2008 01:49 pm ? Staging Form: ? No. ? ELECTRONIC SIGNATURE FOR INES FRITZ M.D.- 12/08/08 04:17 pm INTERFACE SYSTEM 12/06/2008 5:00 PM CDT Maggy Fung MD PATHOLOGY/CYTOLOGY O RDERABLES Performing Organization Address [facility] de Phone Number INTERFACE SYSTEM Refer to clinic/hospital department * HEMOGLOBIN AND HEMATOCRIT (12/06/2008 2:00 PM CDT) HEMOGLOBIN 13.5 11.8 - 14.8 g/dL [facility] HEMATOCRIT 39.9 35.5 - 44.0 % [facility] Blood specimen (specimen) 12/06/2008 2:00 PM CDT 12/06/2008 2:02 PM CDT Narrative INTERFACE SYSTEM - 12/06/2008 2:15 PM CDT room 26 Maggy Fung MD HEMATOLOGY ORDERABLE S Performing Organization Address [facility] de Phone Number INTERFACE SYSTEM Refer to clinic/hospital department [facility] CLIA# [id number] [address] [place] [address] * POC , URINE (12/06/2008 1:55 PM CDT) , URINE POC Negative Negative [facility] Urine specimen (specimen) 12/06/2008 1:55 PM CDT 12/06/2008 1:55 PM CDT Maggy Fung MD POINT OF CARE TESTIN G INTERFACE SYSTEM Refer to clinic/hospital department [facility] CLIA# [id number] [address] [place] [address] documented in this encounter Visit Diagnoses Not on filedocumented in this encounter Additional Health Concerns Infection Onset Date Last Indicated Resolved Time COVID-19 08/17/2021 08/17/2021 09/16/2021 1:16 AM 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
== END 2024-07-09 09:55 | disposition home or self-care (01) ==
PROVIDERS: PCP Emergency Medicine; Visit Provider Emergency Medicine
DX: M54.42 Lumbago with sciatica, left side (principal); M43.06 Spondylolysis, lumbar region
CPT/HCPCS: 72148